=== PATIENT | male | born 1935 | race Caucasian/White ===

== ENCOUNTER 2017-04-18 01:13 | Emergency (ER) | payer MEDICARE ==
[2017-04-18 02:21] LABS: Appearance,Urine Cloudy (Clear); Bacteria,Urine Rare /hpf; Bilirubin,Urine Negative (Negative); Blood,Urine Large (Negative); Color,Urine Light Red; Glucose,Urine (UA) Negative (Negative); Hyaline Casts,Urine 15 /lpf (0-2); Ketones,Urine Negative (Negative); Leukocyte Esterase,Urine Moderate (Negative); Mucus,Urine Rare /hpf; Nitrite,Urine Negative (Negative); Protein,Urine 1+ (Negative); RBC,Urine >182 /hpf (0-5); Specific Gravity,Urine 1.009 (1.001-1.035); Squamous Epithelial Cell,Urine 1 /hpf (0-4); Urobilinogen,Urine <2.0 mg/dL (<2.0); WBC,Urine 113 /hpf (0-5)
--- NOTE | 2017-04-18 02:36 | ED ---
General Adult HPI - General Chief complaint: Recheck/Abnormal Lab/Rx Stated complaint: Trouble urinating Time Seen by Provider: 04/18/17 01:25 Source: patient, RN notes reviewed Mode of arrival: wheelchair Limitations: no limitations - History of Present Illness Initial comments: 81-year-old male presents to the emergency department with a chief complaint of difficulty in urination that was earlier today. He does have a history of hematuria and difficulty in urination in the past. He states that tonight he was having hard time urinating he passed a bloody clot. He states he then called Dr. Hinojosa who referred him here he states swelling that he was able to urinate normally again. He states he does not currently have a urinary catheter. At this time all his pain and discomfort has resolved. He denies any other symptoms at this time. Patient denies any recent fever, chills, shortness of breath, chest pain, back pain, abdominal pain, nausea vomiting, numbness or tingling, dysuria, constipation or diarrhea, headaches or visual changes, or any other current symptoms. - Related Data Home Medications Medication Instructions Recorded Confirmed Allopurinol [Zyloprim] 300 mg PO Q48H 03/01/17 03/04/17 Aspirin [Adult Low Dose Aspirin EC] 81 mg PO BID 03/01/17 03/04/17 Calcium(Dose Unknown) 1 tab PO DAILY 03/01/17 03/04/17 Ciprofloxacin HCl [Cipro] 250 mg PO Q12HR 03/01/17 03/04/17 DULoxetine HCL [Cymbalta] 30 mg PO DAILY 03/01/17 03/04/17 Docusate [Colace] 100 mg PO BID 03/01/17 03/04/17 Gabapentin [Neurontin] 300 mg PO BID 03/01/17 03/04/17 Glucosam/Donnie-Msm1/C/Pardeep/Bosw 1 tab PO DAILY 03/01/17 03/04/17 [Glucosamine-Chondroitin Tablet] Lisinopril [Zestril] 5 mg PO QAM 03/01/17 03/04/17 Metoprolol Tartrate 25 mg PO BID 03/01/17 03/04/17 Multivitamins, Thera [Multivitamin 1 tab PO DAILY 03/01/17 03/04/17 (formulary)] Schriever-3 Fatty Acids/Fish Oil [Fish 1 cap PO BID 03/01/17 03/04/17 Oil 1,000 mg Softgel] Simvastatin [Zocor] 20 mg PO DAILY 03/01/17 03/04/17 Spironolactone [Aldactone] 25 mg PO DAILY 03/01/17 03/04/17 Tamsulosin [Flomax] 0.4 mg PO PC-SUPPER 03/01/17 03/04/17 Torsemide [Demadex] 20 mg PO BID 03/01/17 03/04/17 metFORMIN HCL [Glucophage] 1,000 mg PO BID 03/01/17 03/04/17 sitaGLIPtin PHOS/metFORMIN HCL 1 tab PO PC-SUPPER 03/01/17 03/04/17 [Janumet 50-500 mg Tablet] Previous Rx's Medication Instructions Recorded Ciprofloxacin HCl [Cipro] 500 mg PO Q12HR #14 tablet 04/18/17 Allergies Allergy/AdvReac Type Severity Reaction Status Date / Time No Known Allergies Allergy Verified 03/04/17 09:58 Review of Systems ROS Statement: Those systems with pertinent positive or pertinent negative responses have been documented in the HPI. ROS Other: All systems not noted in ROS Statement are negative. 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 Past Anesthesia/Blood Transfusion Reactions: No Reported Reaction Past Psychological History: No Psychological Hx Reported Smoking Status: Former smoker Past Alcohol Use History: None Reported Past Drug Use History: None Reported - Past Family History Mother Family Medical History: Myocardial Infarction ([place]) Father Family Medical History: Diabetes Mellitus, Myocardial Infarction ([place]) General Exam Limitations: no limitations General appearance: alert, in no apparent distress ENT exam: Present: normal exam, mucous membranes moist Respiratory exam: Present: normal lung sounds bilaterally. Absent: respiratory distress, wheezes, rales, rhonchi, stridor Cardiovascular Exam: Present: regular rate, normal rhythm, normal heart sounds. Absent: systolic murmur, diastolic murmur, rubs, gallop, clicks GI/Abdominal exam: Present: soft, normal bowel sounds. Absent: distended, tenderness, guarding, rebound, rigid Neurological exam: Present: alert, oriented X3 Psychiatric exam: Present: normal affect, normal mood Skin exam: Present: warm, dry, intact, normal color. Absent: rash Course Vital Signs 04/18/17 01:16 Temperature 96.9 F L Pulse Rate 70 Respiratory 16 Rate Blood Pressure 106/55 O2 Sat by Pulse 97 Oximetry Medical Decision Making - Medical Decision Making 81-year-old male presents emergency Department chief complaint of hematuria. At this time post void patient has only 90 and he is able to urinate. Bladder was reviewed that does show some bacteria however greater red blood cells. This time we'll send for culture. Dr. Hinojosa was contacted by Dr. Salas. At this time patient is having no issues with urination. There is suspicion for UTI. We will send for culture and start patient on Cipro. We discussed return for hours and follow-up and all questions. Patient family stated they understood and management this plan. All questions have been answered. They will be discharged home. - Lab Data Lab Results 04/18/17 Range/Units 02:02 Urine Color Light Red Urine Appearance Cloudy (Clear) Urine pH 7.0 (5.0-8.0) Ur Specific [place] 1.009 (1.001-1.035) Urine Protein 1+ H (Negative) Urine Glucose (UA) Negative (Negative) Urine Ketones Negative (Negative) Urine Blood Large H (Negative) Urine Nitrite Negative (Negative) Urine Bilirubin Negative (Negative) Urine Urobilinogen <2.0 (<2.0) mg/dL Ur Leukocyte Esterase Moderate H (Negative) Urine RBC >182 H (0-5) /hpf Urine WBC 113 H (0-5) /hpf Ur Squamous Epith Cells 1 (0-4) /hpf Urine Bacteria Rare H (None) /hpf Hyaline Casts 15 H (0-2) /lpf Urine Mucus Rare H (None) /hpf Disposition Clinical Impression: UTI (urinary tract infection), Hematuria Disposition: HOME SELF-CARE Condition: Stable Instructions: Urinary Tract Infection in Women (ED) Additional Instructions: Please use medication as discussed. Please follow up with family doctor if symptoms have not improved over the next two days. Please return to the emergency room if your symptoms increase or worsen or for any other concerns. Prescriptions: Ciprofloxacin HCl [Cipro] 500 mg PO Q12HR #14 tablet Referrals: Alfredo Self MD [Primary Care Provider] - 1-2 days Time of Disposition: 02:49
--- NOTE | 2017-04-18 02:55 | ED ---
Medical Decision Making - Lab Data Lab Results 04/18/17 Range/Units 02:02 Urine Color Light Red Urine Appearance Cloudy (Clear) Urine pH 7.0 (5.0-8.0) Ur Specific [place] 1.009 (1.001-1.035) Urine Protein 1+ H (Negative) Urine Glucose (UA) Negative (Negative) Urine Ketones Negative (Negative) Urine Blood Large H (Negative) Urine Nitrite Negative (Negative) Urine Bilirubin Negative (Negative) Urine Urobilinogen <2.0 (<2.0) mg/dL Ur Leukocyte Esterase Moderate H (Negative) Urine RBC >182 H (0-5) /hpf Urine WBC 113 H (0-5) /hpf Ur Squamous Epith Cells 1 (0-4) /hpf Urine Bacteria Rare H (None) /hpf Hyaline Casts 15 H (0-2) /lpf Urine Mucus Rare H (None) /hpf Disposition Clinical Impression: UTI (urinary tract infection), Hematuria Disposition: HOME SELF-CARE Condition: Stable Instructions: Urinary Tract Infection in Men (ED) Additional Instructions: Please use medication as discussed. Please follow up with family doctor if symptoms have not improved over the next two days. Please return to the emergency room if your symptoms increase or worsen or for any other concerns. Prescriptions: Ciprofloxacin HCl [Cipro] 500 mg PO Q12HR #14 tablet Referrals: Alfredo Self MD [Primary Care Provider] - 1-2 days
[2017-04-18 03:07] VITALS: BP 131/62; PULSE 65; RESP 18; TEMP 97.4
== END 2017-04-18 03:07 | disposition home or self-care (01) ==
LOC: EC 01:13
DX: N39.0 Urinary tract infection, site not specified (principal); E78.5 Hyperlipidemia, unspecified; I10 Essential (primary) hypertension; I25.10 Atherosclerotic heart disease of native coronary artery without angina pectoris; E11.40 Type 2 diabetes mellitus with diabetic neuropathy, unspecified; M19.90 Unspecified osteoarthritis, unspecified site; N42.9 Disorder of prostate, unspecified; G47.30 Sleep apnea, unspecified; Z87.891 Personal history of nicotine dependence; Z79.82 Long term (current) use of aspirin; Z79.84 Long term (current) use of oral hypoglycemic drugs; Z79.899 Other long term (current) drug therapy; Z85.46 Personal history of malignant neoplasm of prostate; Z92.21 Personal history of antineoplastic chemotherapy; Z92.3 Personal history of irradiation; Z99.89 Dependence on other enabling machines and devices
CPT/HCPCS: 51798; 81001; 87086; 99284

== ENCOUNTER → 2017-08-09 | Outpatient (CLI) | payer MEDICARE ==
--- NOTE | 2017-08-10 07:11 | US ---
EXAMINATION TYPE: US carotid duplex BILAT DATE OF EXAM: 08/09/2017 COMPARISON: NONE CLINICAL HISTORY: Cerebral infarction, unspecified I63.9. EXAM MEASUREMENTS: RIGHT: Peak Systolic Velocity (PSV) cm/sec ----- Right CCA: 65.6 ----- Right ICA: 80.0 ----- Right ECA: 73.4 ICA/CCA ratio: 1.2 RIGHT: End Diastole cm/sec ----- Right CCA: 15.0 ----- Right ICA: 29.3 ----- Right ECA: 6.2 LEFT: Peak Systolic Velocity (PSV) cm/sec ----- Left CCA: 31.1 ----- Left ICA: 88.8 ----- Left ECA: 61.3 ICA/CCA ratio: 2.8 LEFT: End Diastole cm/sec ----- Left CCA: 11.0 ----- Left ICA: 30.6 ----- Left ECA: 12.8 VERTEBRALS (direction of flow): Right Vertebral: Antegrade Left Vertebral: Antegrade Rhythm: Normal IMPRESSION: Moderate amount of plaque visualized. Very low velocities visualized within the left CCA. Criteria for Assigning % of Stenosis / Diameter reduction (Estimation based on the indirect measurements of the internal carotid artery velocities (ICA PSV). 1. Normal (no stenosis)=ICA PSV < 125 cm/s: ratio < 2.0: ICA EDV<40 cm/s. 2. Less than 50% stenosis=ICA PSV < 125 cm/s: ratio < 2.0: ICA EDV<40 cm/s. 3. 50 to 69% stenosis=ICA PSV of 125 to 230 cm/s: ration 2.0 ? 4.0: ICA EDV 40-100 cm/s. 4. Greater than 70% stenosis to near occlusion= ICA PSV > 230 cm/s: ratio > 4.0: ICA EDV > 100 cm/s. 5. Near occlusion= ICA PSV velocities may be low or undetectable: variable ratio and ICA EDV. 6. Total occlusion=unable to detect flow.
== END | disposition home or self-care (01) ==
LOC: RADUSWWP 15:49
PROVIDERS: ATTEND Psychiatry & Neurology Neurology
DX: I65.29 Occlusion and stenosis of unspecified carotid artery (principal)
CPT/HCPCS: 93880

== ENCOUNTER 2017-10-06 18:09 | Inpatient (IN) | payer MEDICARE ==
--- NOTE | 2017-10-06 19:10 | ED ---
General Adult HPI - General Chief complaint: Urogenital Stated complaint: Cannot Urinate Time Seen by Provider: 10/06/17 18:30 Source: patient, RN notes reviewed Mode of arrival: wheelchair Limitations: no limitations - History of Present Illness Initial comments: 81-year-old male present emergency department with chief complaint of hematuria and unable to urinate. 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 Patient states that he's had problems since February with this he states that he's been placed in the hospital has had transfusion and has had multiple Perdomo's. Patient states she's felt the building up throughout the day states that he cannot tolerate the pressure at this time. Patient states that he had a spot cauterized in his bladder. Patient reports no fever no chills. - Related Data Home Medications Medication Instructions Recorded Confirmed Allopurinol [Zyloprim] 300 mg PO Q48H 03/01/17 10/06/17 Aspirin [Adult Low Dose Aspirin EC] 81 mg PO BID 03/01/17 10/06/17 Calcium(Dose Unknown) 1 tab PO DAILY 03/01/17 10/06/17 DULoxetine HCL [Cymbalta] 30 mg PO DAILY 03/01/17 10/06/17 Docusate [Colace] 100 mg PO BID 03/01/17 10/06/17 Gabapentin [Neurontin] 300 mg PO BID 03/01/17 10/06/17 Glucosam/Donnie-Msm1/C/Pardeep/Bosw 1 tab PO DAILY 03/01/17 10/06/17 [Glucosamine-Chondroitin Tablet] Lisinopril [Zestril] 5 mg PO QAM 03/01/17 10/06/17 Metoprolol Tartrate 25 mg PO BID 03/01/17 10/06/17 Multivitamins, Thera [Multivitamin 1 tab PO DAILY 03/01/17 10/06/17 (formulary)] Simvastatin [Zocor] 20 mg PO DAILY 03/01/17 10/06/17 Tamsulosin [Flomax] 0.4 mg PO PC-SUPPER 03/01/17 10/06/17 Mirabegron [Myrbetriq] 50 mg PO DAILY 06/27/17 10/06/17 Omeprazole 20 mg PO BID 06/27/17 10/06/17 sitaGLIPtin PHOS/metFORMIN HCL 1 tab PO BID 06/27/17 10/06/17 [Janumet 50-500 mg Tablet] Allergies Allergy/AdvReac Type Severity Reaction Status Date / Time No Known Allergies Allergy Verified 10/06/17 19:02 Review of Systems ROS Statement: Those systems with pertinent positive or pertinent negative responses have been documented in the HPI. ROS Other: All systems not noted in ROS Statement are negative. 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 Anemia with blood transfusions. 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 Past Anesthesia/Blood Transfusion Reactions: No Reported Reaction Past Psychological History: No Psychological Hx Reported Smoking Status: Former smoker Past Alcohol Use History: None Reported Past Drug Use History: None Reported - Past Family History Mother Family Medical History: Myocardial Infarction ([place]) Father Family Medical History: Diabetes Mellitus, Myocardial Infarction ([place]) General Exam Limitations: no limitations General appearance: alert, in no apparent distress Respiratory exam: Present: normal lung sounds bilaterally. Absent: respiratory distress, wheezes, rales, rhonchi, stridor Cardiovascular Exam: Present: regular rate, normal rhythm, normal heart sounds. Absent: systolic murmur, diastolic murmur, rubs, gallop, clicks GI/Abdominal exam: Present: soft, tenderness (Suprapubic region), normal bowel sounds. Absent: distended, guarding, rebound, rigid Skin exam: Present: warm, dry, intact, normal color. Absent: rash Course Vital Signs 10/06/17 18:24 Temperature 98.3 F Pulse Rate 72 Respiratory 18 Rate Blood Pressure 139/67 O2 Sat by Pulse 98 Oximetry Medical Decision Making - Medical Decision Making 81-year-old male presented from it for hematuria unable to urinate. Patient was seen in emergency department by Dr. buitrago or urology who placed a Perdomo and patient will be admitted for gross hematuria with one every hour flushes. - Lab Data Result diagrams: 10/06/17 19:35 10/06/17 19:35 Lab Results 10/06/17 10/06/17 10/06/17 Range/Units 19:35 19:35 19:35 WBC 7.8 (3.8-10.6) k/uL RBC 3.40 L (4.30-5.90) m/uL Hgb 11.1 L (13.0-17.5) gm/dL Hct 32.5 L (39.0-53.0) % MCV 95.6 (80.0-100.0) fL MCH 32.8 (25.0-35.0) pg MCHC 34.3 (31.0-37.0) g/dL RDW 16.4 H (11.5-15.5) % Plt Count 238 (150-450) k/uL Neutrophils % 79 % Lymphocytes % 10 % Monocytes % 8 % Eosinophils % 2 % Basophils % 0 % Neutrophils # 6.2 (1.3-7.7) k/uL Lymphocytes # 0.8 L (1.0-4.8) k/uL Monocytes # 0.6 (0-1.0) k/uL Eosinophils # 0.1 (0-0.7) k/uL Basophils # 0.0 (0-0.2) k/uL Anisocytosis Slight PT 9.8 (9.0-12.0) sec INR 1.0 (<1.2) APTT 25.5 (22.0-30.0) sec Sodium 136 L (137-145) mmol/L Potassium 4.6 (3.5-5.1) mmol/L Chloride 103 (98-107) mmol/L Carbon Dioxide 25 (22-30) mmol/L Anion Gap 8 mmol/L BUN 16 (9-20) mg/dL Creatinine 1.20 (0.66-1.25) mg/dL Est GFR (CKD-EPI)AfAm 66 (>60 ml/min/1.73 sqM) Est GFR (CKD-EPI)NonAf 57 (>60 ml/min/1.73 sqM) Glucose 140 H (74-99) mg/dL Calcium 9.1 (8.4-10.2) mg/dL Disposition Clinical Impression: Gross hematuria, Urinary retention, Abdominal pain Disposition: ADMITTED IP TO THIS HOSP Referrals: Alfredo Self MD [Primary Care Provider] - 1-2 days
[2017-10-06 19:48] LABS: Anisocytosis Slight; Basophils % (A) 0 %; Eosinophils # (A) 0.1 k/uL (0-0.7); Eosinophils % (A) 2 %; HCT 32.5 % (39.0-53.0); HGB 11.1 gm/dL (13.0-17.5); Lymphocytes # (A) 0.8 k/uL (1.0-4.8); Lymphocytes % (A) 10 %; MCH 32.8 pg (25.0-35.0); MCHC 34.3 g/dL (31.0-37.0); MCV 95.6 fL (80.0-100.0); Mean Platelet Volume 7.6; Monocytes # (A) 0.6 k/uL (0-1.0); Monocytes % (A) 8 %; Neutrophils # (A) 6.2 k/uL (1.3-7.7); Neutrophils % (A) 79 %; Platelet Count 238 k/uL (150-450); RDW 16.4 % (11.5-15.5); WBC 7.8 k/uL (3.8-10.6)
[2017-10-06 20:01] LABS: Calcium 9.1 mg/dL (8.4-10.2); Partial Thromboplastin Time 25.5 sec (22.0-30.0); Potassium 4.6 mmol/L (3.5-5.1); Prothrombin Time 9.8 sec (9.0-12.0)
--- NOTE | 2017-10-06 21:42 | P.OP ---
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 He developed gross hematuria one week ago which progressed to the point that he began passing clots. He has been unable to pass any urine since this morning and came to the emergency room for evaluation. Attempts at placement of a catheter by the nurses proved unsuccessful and I was asked to see the patient. Description of Procedure: The patient was placed supine in his emergency room bed. Patient has moderate phimosis. The penis was cleansed with Betadine solution and draped in a sterile fashion. I initially attempted to pass a 22 and then a 20-Kyr[place] Ortiz catheter through the urethra but both catheters met obstruction in the mid urethra. I was eventually able to pass an 18-Kyrgyz coud catheter through the urethra and into the bladder. Over the next 45 minutes over 500 mL of old clotted blood was irrigated from the bladder. After all clots and been removed the urine remained pink tinged and for that reason the patient will be admitted for further observation.
[2017-10-06] MEDS ORDERED: NALOXONE 0.4 MG/ML 1 ML VIAL IV PRN (21:46)
--- NOTE | 2017-10-06 21:52 | P.GSHP ---
History of Present Illness H&P Date: 10/06/17 Chief Complaint: Gross hematuria The patient is a 81-year-old male with a history of prostate cancer previously treated with radiation therapy. 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 He was last seen by Dr. Buckley on 09/27 and says that he began experiencing gross hematuria on 09/28. Initially the blood was just at the start of his urine flow but over the last several days he began passing blood clots. This morning he says that it became impossible to pass any clots and through the day he developed increasing lower abdominal discomfort. He presented to the emergency room where he was evaluated and a bladder scan showed over 900 mL in his bladder. The patient has moderate phimosis and it was impossible for the nurses to insert a catheter to drain the bladder. I saw the patient in the emergency room and initially attempted to pass a 22 and 20-Slovenian catheter through the urethra but these met with obstruction in the mid urethra. I was eventually able to pass an 18-Slovenian coud catheter into the bladder and over 500 mL of old clotted blood was irrigated from the bladder. Despite removal of all clots the urine remained pink in color and for that reason the patient will be admitted for the purpose of irrigation of his bladder every 1-2 hours. Up until one week ago the patient said that he had been doing very well. He says he usually voids every 2-3 hours during the day and once at night. He has been taking a baby aspirin twice a day and says that he continued this despite his gross hematuria. - Constitutional Constitutional: Denies chills, Denies fever - Cardiovascular Cardiovascular: Denies chest pain, Denies shortness of breath - Respiratory Respiratory: Denies cough, Denies wheezing - Gastrointestinal Gastrointestinal: Reports abdominal pain (Suprapubic cramps), Denies constipation - Genitourinary (Female) Genitourinary: Reports as per HPI Past Medical History Past Medical History: Blood Disorder, Coronary Artery Disease (CAD), Cancer, Diabetes Mellitus, Hyperlipidemia, Hypertension, Osteoarthritis (OA), Prostate Disorder, Renal Disease, Skin Disorder, Sleep Apnea/CPAP/BIPAP Additional Past Medical History / Comment(s): 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 Anemia with blood transfusions. 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 Past Anesthesia/Blood Transfusion Reactions: No Reported Reaction Past Psychological History: No Psychological Hx Reported Smoking Status: Former smoker Past Alcohol Use History: None Reported Past Drug Use History: None Reported - Past Family History Mother Family Medical History: Myocardial Infarction ([place]) Father Family Medical History: Diabetes Mellitus, Myocardial Infarction ([place]) Medications and Allergies Home Medications Medication Instructions Recorded Confirmed Type Allopurinol [Zyloprim] 300 mg PO Q48H 03/01/17 10/06/17 History Aspirin [Adult Low Dose Aspirin EC] 81 mg PO BID 03/01/17 10/06/17 History Calcium(Dose Unknown) 1 tab PO DAILY 03/01/17 10/06/17 History DULoxetine HCL [Cymbalta] 30 mg PO DAILY 03/01/17 10/06/17 History Docusate [Colace] 100 mg PO BID 03/01/17 10/06/17 History Gabapentin [Neurontin] 300 mg PO BID 03/01/17 10/06/17 History Glucosam/Donnie-Msm1/C/Pardeep/Bosw 1 tab PO DAILY 03/01/17 10/06/17 History [Glucosamine-Chondroitin Tablet] Lisinopril [Zestril] 5 mg PO QAM 03/01/17 10/06/17 History Metoprolol Tartrate 25 mg PO BID 03/01/17 10/06/17 History Multivitamins, Thera [Multivitamin 1 tab PO DAILY 03/01/17 10/06/17 History (formulary)] Simvastatin [Zocor] 20 mg PO DAILY 03/01/17 10/06/17 History Tamsulosin [Flomax] 0.4 mg PO PC-SUPPER 03/01/17 10/06/17 History Mirabegron [Myrbetriq] 50 mg PO DAILY 06/27/17 10/06/17 History Omeprazole 20 mg PO BID 06/27/17 10/06/17 History sitaGLIPtin PHOS/metFORMIN HCL 1 tab PO BID 06/27/17 10/06/17 History [Janumet 50-500 mg Tablet] Allergies Allergy/AdvReac Type Severity Reaction Status Date / Time No Known Allergies Allergy Verified 10/06/17 19:02 Surgical - Exam Vital Signs Temp Pulse Resp BP Pulse Ox 98.3 F 72 18 139/67 98 10/06/17 18:24 10/06/17 18:24 10/06/17 18:24 10/06/17 18:24 10/06/17 18:24 - General well developed, well nourished, moderate distress, obese - ENT no hearing loss - Neck no masses, no lymphadectomy - Respiratory normal respiratory effort - Abdomen Abdomen: tender (Suprapubic area with dullness to percussion), no organomegaly - Genitourinary other (The penis is uncircumcised and there is moderate phimosis which prevents direct visualization of the urethral meatus. Testicles are somewhat atrophic.) Results - Labs 10/06/17 19:35 10/06/17 19:35 Abnormal Lab Results - Last 24 Hours (Table) 10/06/17 10/06/17 Range/Units 19:35 19:35 RBC 3.40 L (4.30-5.90) m/uL Hgb 11.1 L (13.0-17.5) gm/dL Hct 32.5 L (39.0-53.0) % RDW 16.4 H (11.5-15.5) % Lymphocytes # 0.8 L (1.0-4.8) k/uL Sodium 136 L (137-145) mmol/L Glucose 140 H (74-99) mg/dL Diabetes panel 10/06/17 Range/Units 19:35 Sodium 136 L (137-145) mmol/L Potassium 4.6 (3.5-5.1) mmol/L Chloride 103 (98-107) mmol/L Carbon Dioxide 25 (22-30) mmol/L BUN 16 (9-20) mg/dL Creatinine 1.20 (0.66-1.25) mg/dL Glucose 140 H (74-99) mg/dL Calcium 9.1 (8.4-10.2) mg/dL Calcium panel 10/06/17 Range/Units 19:35 Calcium 9.1 (8.4-10.2) mg/dL Pituitary panel 10/06/17 Range/Units 19:35 Sodium 136 L (137-145) mmol/L Potassium 4.6 (3.5-5.1) mmol/L Chloride 103 (98-107) mmol/L Carbon Dioxide 25 (22-30) mmol/L BUN 16 (9-20) mg/dL Creatinine 1.20 (0.66-1.25) mg/dL Glucose 140 H (74-99) mg/dL Calcium 9.1 (8.4-10.2) mg/dL Adrenal panel 10/06/17 Range/Units 19:35 Sodium 136 L (137-145) mmol/L Potassium 4.6 (3.5-5.1) mmol/L Chloride 103 (98-107) mmol/L Carbon Dioxide 25 (22-30) mmol/L BUN 16 (9-20) mg/dL Creatinine 1.20 (0.66-1.25) mg/dL Glucose 140 H (74-99) mg/dL Calcium 9.1 (8.4-10.2) mg/dL Assessment and Plan (1) Irradiation cystitis with hematuria Narrative/Plan: The patient's gross hematuria appears to be related to irradiation cystitis which has been complicated by his continued use of aspirin. A large amount of clotted blood was irrigated from the bladder but the hematuria has persisted. The patient will be admitted and his bladder will be irrigated every 1-2 hours overnight in hopes that the bleeding vessels will contract. Dr. Buckley has seen the patient in the past and will reevaluate him in the morning. Current Visit: No Status: Acute Code(s): N30.41 - IRRADIATION CYSTITIS WITH HEMATURIA SNOMED Code(s): 13332760
[2017-10-07 07:33] LABS: Glucose,Whole Blood 244 mg/dL (75-99)
--- NOTE | 2017-10-07 08:00 | P.PN ---
Progress Note - Text Progress Note Date: 10/07/17 Mr. Figueroa is comfortable. His Ortiz catheter was being irrigated hourly. Some small clots have been irrigated. He is hemodynamically stable. A CBC will be obtained. If the hematuria worsens, or there is a significant drop in his hemoglobin level, he may require cystoscopy with fulguration of bleeders.
[2017-10-07] MEDS: METOPROLOL TARTRATE 25 MG TAB PO SCH ×2 (08:20→20:54)
[2017-10-07] MEDS: INSULIN ASPART 100 UNIT/ML 1 ML 10 ML VIAL SQ SCH ×4 (08:21→20:55)
[2017-10-07] MEDS: DOCUSATE 100 MG CAP PO SCH ×2 (08:21→20:55)
[2017-10-07] MEDS: DULoxetine HCL 30 MG CAPSULE.DR PO SCH (08:21)
[2017-10-07] MEDS: GABAPENTIN 300 MG CAP PO SCH ×2 (08:21→20:54)
[2017-10-07 08:24] VITALS: BMI 39.4
[2017-10-07] MEDS ORDERED: Mirabegron [Myrbetriq] PO SCH (09:00)
[2017-10-07] MEDS ORDERED: ALLOPURINOL 300 MG TAB PO SCH (09:00)
[2017-10-07] MEDS ORDERED: LISINOPRIL 5 MG TAB PO SCH ×2 (09:00→21:00)
[2017-10-07 09:15] LABS: Anisocytosis Slight; Basophils % (A) 0 %; Eosinophils # (A) 0.1 k/uL (0-0.7); Eosinophils % (A) 2 %; Lymphocytes # (A) 0.8 k/uL (1.0-4.8); Lymphocytes % (A) 11 %; MCH 32.5 pg (25.0-35.0); MCHC 33.3 g/dL (31.0-37.0); MCV 97.6 fL (80.0-100.0); Mean Platelet Volume 7.1; Monocytes # (A) 0.4 k/uL (0-1.0); Monocytes % (A) 6 %; Neutrophils # (A) 5.4 k/uL (1.3-7.7); Neutrophils % (A) 79 %; Platelet Count 215 k/uL (150-450); RBC 3.07 m/uL (4.30-5.90); RDW 16.6 % (11.5-15.5); WBC 6.9 k/uL (3.8-10.6)
[2017-10-07] MEDS ORDERED: MULTIVITAMINS, THERA 1 EACH TAB PO SCH (12:00)
[2017-10-07 12:05] LABS: Glucose,Whole Blood 110 mg/dL (75-99)
[2017-10-07] MEDS ORDERED: INSULIN ASPART 100 UNIT/ML 1 ML 10 ML VIAL SQ SCH (12:30)
--- NOTE | 2017-10-07 13:55 | P.CONS ---
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 Barrow recently for the same complain, his symptoms become much worse ended up coming to the emergency department on having to pass blood clots in his urine and having quite bed difficulty in urination not been able to void. He was seen by Dr. Hinojosa and three-way catheter was place and start irrigating the bladder continue to have significant hematuria patient was seen by urology today catheter will be kept continue current irrigation does not a clear apparently patient might require to go for cystoscopy and further management. Patient is doing well otherwise his blood sugar has been better control also not having any chest pain or angina with significant decrease lower extremity edema over the last few weeks. Review of Systems CONSTITUTIONAL: Well-developed no acute respiratory distress. EYES: No icterus sclerae, no conjunctivitis. EARS, NOSE, MOUTH, THROAT, and FACE: No sore throat, lymphadenopathy, carotid bruits or deformity. RESPIRATORY: No SOB cough or wheezes. CARDIOVASCULAR: No CP, Palpitation, PND, Orthopnea, or angina. GASTROINTESTINAL: No Abd pain, Nausea or vomiting, no Diarrhea or constipation, No GI Bleed, no distention or masses. GENITOURINARY: Positive gross hematuria with a Ortiz catheter and INTEGUMENT/BREAST: Positive edema. HEMATOLOGIC/LYMPHATIC: Negative for bleed or purpura. MUSCULOSKELTAL: Negative for Myalgia or arthralgia. NEURLOGICAL: No LOC, Sz or syncope, blurred vision dizziness or abnormality.. BEHAVIORAL/PSYCH: Negative. ENDOCRINE: Negative. 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 Anemia with blood transfusions. 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 Past Anesthesia/Blood Transfusion Reactions: No Reported Reaction Past Psychological History: No Psychological Hx Reported Additional Psychological History / Comment(s): Pt resides with his spouse. He ambulates with a walker. He drives. Smoking Status: Former smoker Past Alcohol Use History: None Reported Additional Past Alcohol Use History / Comment(s): Pt smoked from 89 until 1982 -03/22 ppd. Past Drug Use History: None Reported - Past Family History Mother Family Medical History: Myocardial Infarction ([place]) Father Family Medical History: Diabetes Mellitus, Myocardial Infarction ([place]) Medications and Allergies Home Medications Medication Instructions Recorded Confirmed Type Allopurinol [Zyloprim] 300 mg PO Q48H 03/01/17 10/06/17 History Aspirin [Adult Low Dose Aspirin EC] 81 mg PO BID 03/01/17 10/06/17 History Calcium(Dose Unknown) 1 tab PO DAILY 03/01/17 10/06/17 History DULoxetine HCL [Cymbalta] 30 mg PO DAILY 03/01/17 10/06/17 History Docusate [Colace] 100 mg PO BID 03/01/17 10/06/17 History Gabapentin [Neurontin] 300 mg PO BID 03/01/17 10/06/17 History Glucosam/Donnie-Msm1/C/Pardeep/Bosw 1 tab PO DAILY 03/01/17 10/06/17 History [Glucosamine-Chondroitin Tablet] Lisinopril [Zestril] 5 mg PO HS 03/01/17 10/07/17 History Metoprolol Tartrate 25 mg PO BID 03/01/17 10/06/17 History Multivitamins, Thera [Multivitamin 1 tab PO DAILY 03/01/17 10/06/17 History (formulary)] Simvastatin [Zocor] 20 mg PO DAILY 03/01/17 10/06/17 History Tamsulosin [Flomax] 0.4 mg PO PC-SUPPER 03/01/17 10/06/17 History Mirabegron [Myrbetriq] 50 mg PO DAILY 06/27/17 10/06/17 History Omeprazole 20 mg PO BID 06/27/17 10/06/17 History sitaGLIPtin PHOS/metFORMIN HCL 1 tab PO BID 06/27/17 10/06/17 History [Janumet 50-500 mg Tablet] Allergies Allergy/AdvReac Type Severity Reaction Status Date / Time No Known Allergies Allergy Verified 10/06/17 19:02 Physical Exam Vitals: Vital Signs Temp Pulse Pulse Resp BP BP Pulse Ox 10/07/17 07:30 97.9 F 61 14 114/56 99 10/07/17 00:26 98.9 F 72 16 127/65 99 10/06/17 22:44 98.4 F 76 20 153/94 99 10/06/17 22:08 98.6 F 63 18 155/68 99 10/06/17 21:48 98.6 F 53 L 18 135/63 98 10/06/17 18:24 98.3 F 72 18 139/67 98 Intake and Output 10/06/17 10/07/17 10/07/17 22:59 06:59 14:59 Output Total 2285 150 Balance -2285 -150 Output: Urine 2285 150 Coude 1140 150 Other: Voiding Method Indwelling Catheter Indwelling Catheter Weight 124.9 kg General Appearance: Alert, cooperative, no distress, appears stated age. Neck HEENT: Supple, no lymphadenopathy, no thyroid enlargement, no carotid bruits. Lungs: Clear to auscultation without crackles or wheezes no rhonchi, no deformity. Chest Wall: Chest wall normal expansion with deep inspiration no tenderness and no deformity was found on exam, no costochondral pain or discomfort. Heart: Regular rate and rhythm, S1, S2 normal, no murmur, rub or gallop. Back: Symmetric, no curvature, ROM normal, no CVA tenderness. Abdomen: Soft, non-tender, bowel sounds active all four quadrants, no masses, no organomegaly. Extremities: Slight edema with decreased pulse bilaterally, slight discoloration from 5 inches below the knee all the way to the toes area. Skin: Skin color, texture, tugor normal, no rashes or lesions. Neurologic: Alert oriented x3 cranial nerves II through XII intact, no motor deficit, no abnormal balance or gait. Genitalia: Patient had Ortiz catheter and still draining gross blood currently. Results CBC & Chem 7: 10/07/17 08:28 10/06/17 19:35 Labs: Abnormal Lab Results - Last 24 Hours (Table) 10/06/17 10/06/17 10/07/17 Range/Units 19:35 19:35 07:05 RBC 3.40 L (4.30-5.90) m/uL Hgb 11.1 L (13.0-17.5) gm/dL Hct 32.5 L (39.0-53.0) % RDW 16.4 H (11.5-15.5) % Lymphocytes # 0.8 L (1.0-4.8) k/uL Sodium 136 L (137-145) mmol/L Glucose 140 H (74-99) mg/dL POC Glucose (mg/dL) 244 H (75-99) mg/dL 10/07/17 10/07/17 Range/Units 08:28 11:48 RBC 3.07 L (4.30-5.90) m/uL Hgb 10.0 L (13.0-17.5) gm/dL Hct 30.0 L (39.0-53.0) % RDW 16.6 H (11.5-15.5) % Lymphocytes # 0.8 L (1.0-4.8) k/uL Sodium (137-145) mmol/L Glucose (74-99) mg/dL POC Glucose (mg/dL) 110 H (75-99) mg/dL Assessment and Plan Plan: 1 gross hematuria: Continue irrigation to Ortiz catheter if no improvement patient will be going for cystoscopy and further management with urology. 2 acute blood loss anemia: No need for blood transfusion currently if hemoglobin dropped below 8 might need transfusion. 3 type 2 diabetes: Continue patient on Accu-Chek with sliding scales continue his current medication, still on Janumet, his last A1c was less than 7. 3 hypertension: Remain on metoprolol 25 g twice a day and lisinopril 5 mg daily. 4 gout: Most sign and symptom of any gout flareup continue Zyloprim 300 mg every other day. 5 chronic depression: Has been on Cymbalta 30 mg daily. 6 hyperlipidemia: Remain on simvastatin 20 mg a day. 7 BPH: Continue patient on Flomax 0.4 mg a day and mirabetriq 50 mg daily. 8 chronic neuropathy: Has been on gabapentin 300 mg twice a day. 9 history of prostate cancer: Has been in remission patient had radiation therapy and was seen at [facility] for long time. CODE STATUS: Full code. Dr. Buckley thank you much for the consult if I can be any further help to please let me know.
[2017-10-07] MEDS ORDERED: HYDROmorphone 1 MG/ML 1 ML SYRINGE IVP PRN (15:00)
[2017-10-07] MEDS ORDERED: HYDROcodone/APAP 5-325MG 1 EACH TAB PO PRN ×2 (15:00)
[2017-10-07 16:40] LABS: Glucose,Whole Blood 130 mg/dL (75-99)
[2017-10-07] MEDS ORDERED: LIDOCAINE 5% PATCH TOPICAL PRN (19:02)
[2017-10-07 20:14] LABS: Glucose,Whole Blood 145 mg/dL (75-99)
[2017-10-07 20:28] LABS: Hemoglobin A1C 6.4 % (4.0-6.0)
[2017-10-08 00:36] VITALS: RESP 16
[2017-10-08 06:44] LABS: Anisocytosis Slight; Basophils % (A) 0 %; Eosinophils # (A) 0.1 k/uL (0-0.7); Eosinophils % (A) 2 %; HCT 28.6 % (39.0-53.0); HGB 9.5 gm/dL (13.0-17.5); Lymphocytes # (A) 0.7 k/uL (1.0-4.8); Lymphocytes % (A) 11 %; MCH 32.2 pg (25.0-35.0); MCHC 33.3 g/dL (31.0-37.0); MCV 96.5 fL (80.0-100.0); Mean Platelet Volume 7.1; Monocytes # (A) 0.4 k/uL (0-1.0); Monocytes % (A) 6 %; Neutrophils # (A) 4.9 k/uL (1.3-7.7); Neutrophils % (A) 79 %; Platelet Count 172 k/uL (150-450); RBC 2.97 m/uL (4.30-5.90); RDW 16.1 % (11.5-15.5); WBC 6.2 k/uL (3.8-10.6)
[2017-10-08 07:29] LABS: Glucose,Whole Blood 114 mg/dL (75-99)
[2017-10-08] MEDS ORDERED: PANTOPRAZOLE 40 MG TABLET PO SCH (07:30)
[2017-10-08 08:04] VITALS: BP 114/64; PULSE 59; TEMP 97.6
[2017-10-08] MEDS: DOCUSATE 100 MG CAP PO SCH (08:04)
[2017-10-08] MEDS: INSULIN ASPART 100 UNIT/ML 1 ML 10 ML VIAL SQ SCH (08:04)
[2017-10-08] MEDS: METOPROLOL TARTRATE 25 MG TAB PO SCH (08:05)
[2017-10-08] MEDS: DULoxetine HCL 30 MG CAPSULE.DR PO SCH (08:05)
[2017-10-08] MEDS: GABAPENTIN 300 MG CAP PO SCH (08:53)
--- NOTE | 2017-10-08 09:48 | P.DS ---
Providers Date of admission: 10/06/17 21:46 Expected date of discharge: 10/08/17 Attending physician: Oral Hinojosa Primary care physician: Alfredo Self - Discharge Diagnosis(es) (1) Irradiation cystitis with hematuria The patient was admitted through the emergency room on 10/06 due to gross hematuria presumably related to irradiation cystitis. In the emergency room a catheter was inserted and approximately 500 mL of old clotted blood was irrigated from the bladder. The patient's urine remained blood-tinged and he was admitted for the purpose of periodic bladder irrigation. This was continued over the next 36 hours. His hemoglobin was 11.1 at the time of admission, 10.0 on 10/07 and stable at 9.5 on 10/08. Despite the anemia it was felt that blood transfusion would not be necessary. On the morning of 10/08 his urine was clear and it was elected to discharge the patient with the catheter in place. He will contact Dr. Buckley on 10/10 and the catheter will most likely be removed at that time. He will remain off aspirin until his catheter has been removed. Current Visit: No Status: Acute Patient Condition at Discharge: Good Plan - Discharge Summary Discharge Rx Participant: No New Discharge Prescriptions: No Action Glucosam/Donnie-Msm1/C/Pardeep/Bosw [Glucosamine-Chondroitin Tablet] 1 tab PO DAILY DULoxetine HCL [Cymbalta] 30 mg PO DAILY Multivitamins, Thera [Multivitamin (formulary)] 1 tab PO DAILY Aspirin [Adult Low Dose Aspirin EC] 81 mg PO BID Gabapentin [Neurontin] 300 mg PO BID Docusate [Colace] 100 mg PO BID Lisinopril [Zestril] 5 mg PO HS Allopurinol [Zyloprim] 300 mg PO Q48H Simvastatin [Zocor] 20 mg PO DAILY Metoprolol Tartrate 25 mg PO BID Calcium(Dose Unknown) 1 tab PO DAILY Tamsulosin [Flomax] 0.4 mg PO PC-SUPPER sitaGLIPtin PHOS/metFORMIN HCL [Janumet 50-500 mg Tablet] 1 tab PO BID Mirabegron [Myrbetriq] 50 mg PO DAILY Omeprazole 20 mg PO BID Lidocaine 5% Patch [Lidoderm] 1 patch TOPICAL DAILY PRN PRN Reason: Pain Control Discharge Medication List Allopurinol [Zyloprim] 300 mg PO Q48H 03/01/17 [History] Aspirin [Adult Low Dose Aspirin EC] 81 mg PO BID 03/01/17 [History] Calcium(Dose Unknown) 1 tab PO DAILY 03/01/17 [History] DULoxetine HCL [Cymbalta] 30 mg PO DAILY 03/01/17 [History] Docusate [Colace] 100 mg PO BID 03/01/17 [History] Gabapentin [Neurontin] 300 mg PO BID 03/01/17 [History] Glucosam/Donnie-Msm1/C/Pardeep/Bosw [Glucosamine-Chondroitin Tablet] 1 tab PO DAILY 03/01/17 [History] Lisinopril [Zestril] 5 mg PO HS 03/01/17 [History] Metoprolol Tartrate 25 mg PO BID 03/01/17 [History] Multivitamins, Thera [Multivitamin (formulary)] 1 tab PO DAILY 03/01/17 [History ] Simvastatin [Zocor] 20 mg PO DAILY 03/01/17 [History] Tamsulosin [Flomax] 0.4 mg PO PC-SUPPER 03/01/17 [History] Mirabegron [Myrbetriq] 50 mg PO DAILY 06/27/17 [History] Omeprazole 20 mg PO BID 06/27/17 [History] sitaGLIPtin PHOS/metFORMIN HCL [Janumet 50-500 mg Tablet] 1 tab PO BID 06/27/17 [History] Lidocaine 5% Patch [Lidoderm] 1 patch TOPICAL DAILY PRN 10/07/17 [History] Follow up Appointment(s)/Referral(s): Alfredo Self MD [Primary Care Provider] - As Needed Ramo Buckley MD [STAFF PHYSICIAN] - 10/10/17 Activity/Diet/Wound Care/Special Instructions: Patient will be provided with a leg bag and large catheter drainage bag as well as 10 mL syringes filled with sterile water to irrigate the catheter if necessary. Discharge Disposition: HOME SELF-CARE
== END 2017-10-08 11:44 | disposition home or self-care (01) | DRG 699 ==
LOC: EC 18:09 → 3SUR 21:46
PROVIDERS: ADMIT Urology; ATTEND Urology
PROC: 3E1K78Z Irrigation of Genitourinary Tract using Irrigating Substance, Via Natural or Artificial Opening (ICD-10-PCS; principal; 2017-10-06)
DX: N30.41 Irradiation cystitis with hematuria (principal); D62 Acute posthemorrhagic anemia; E11.40 Type 2 diabetes mellitus with diabetic neuropathy, unspecified; Z79.84 Long term (current) use of oral hypoglycemic drugs; E78.5 Hyperlipidemia, unspecified; G47.33 Obstructive sleep apnea (adult) (pediatric); I10 Essential (primary) hypertension; I25.10 Atherosclerotic heart disease of native coronary artery without angina pectoris; Y84.2 Radiological procedure and radiotherapy as the cause of abnormal reaction of the patient, or of later complication, without mention of misadventure at the time of the procedure; Z79.82 Long term (current) use of aspirin; Z79.899 Other long term (current) drug therapy; Z82.49 Family history of ischemic heart disease and other diseases of the circulatory system; Z83.3 Family history of diabetes mellitus; Z85.46 Personal history of malignant neoplasm of prostate; Z87.891 Personal history of nicotine dependence; Z95.1 Presence of aortocoronary bypass graft; Z95.2 Presence of prosthetic heart valve; L40.9 Psoriasis, unspecified; N28.1 Cyst of kidney, acquired; N40.1 Benign prostatic hyperplasia with lower urinary tract symptoms; E66.3 Overweight; Z68.39 Body mass index [BMI] 39.0-39.9, adult; F32.9 Major depressive disorder, single episode, unspecified; M10.9 Gout, unspecified; N47.1 Phimosis; R33.8 Other retention of urine
CPT/HCPCS: 36415; 51702; 51798; 80048; 83036; 85025; 85610; 85730; 99285

== ENCOUNTER 2017-10-11 15:05 | Emergency (ER) | payer MEDICARE ==
[2017-10-11 15:12] VITALS: RESP 18
[2017-10-11] MEDS ORDERED: SODIUM CHLORIDE 0.9% 1,000 ML IV STA (15:30)
--- NOTE | 2017-10-11 15:44 | ED ---
General Adult HPI - General Chief complaint: Fever Stated complaint: blood in urine Time Seen by Provider: 10/11/17 15:11 Source: patient, EMS, RN notes reviewed, old records reviewed Mode of arrival: EMS Limitations: no limitations - History of Present Illness Initial comments: This is a 81-year-old male the ER for evaluation today. Patient is coming in today for evaluation of fever, blood in the urine. Patient has known radiation colitis, patient had fully placed on has had episodes of hematuria since with that did recently clear, slightly jaundiced yesterday and then blood in the urine started today as long as fever. Patient 103 fever at home, denies cough congestion of bowel pain nausea vomiting or diarrhea. Patient not currently on antibiotics. - Related Data Home Medications Medication Instructions Recorded Confirmed Allopurinol [Zyloprim] 300 mg PO Q48H 03/01/17 10/11/17 DULoxetine HCL [Cymbalta] 30 mg PO DAILY 03/01/17 10/11/17 Docusate [Colace] 100 mg PO BID 03/01/17 10/11/17 Gabapentin [Neurontin] 300 mg PO BID 03/01/17 10/11/17 Glucosam/Donnie-Msm1/C/Pardeep/Bosw 1 tab PO HS 03/01/17 10/11/17 [Glucosamine-Chondroitin Tablet] Lisinopril [Zestril] 5 mg PO HS 03/01/17 10/11/17 Metoprolol Tartrate 25 mg PO BID 03/01/17 10/11/17 Multivitamins, Thera [Multivitamin 1 tab PO HS 03/01/17 10/11/17 (formulary)] Simvastatin [Zocor] 20 mg PO HS 03/01/17 10/11/17 Tamsulosin [Flomax] 0.4 mg PO QAM 03/01/17 10/11/17 Mirabegron [Myrbetriq] 50 mg PO DAILY 06/27/17 10/11/17 Omeprazole 20 mg PO BID 06/27/17 10/11/17 sitaGLIPtin PHOS/metFORMIN HCL 1 tab PO HS 06/27/17 10/11/17 [Janumet 50-500 mg Tablet] Calcium Carbonate/Vitamin D3 1 tab PO HS 10/11/17 10/11/17 [Calcium 600-Vit D3 200 Tablet] Ciprofloxacin HCl [Cipro] 250 mg PO Q12HR 10/11/17 10/11/17 L.acidoph,Paracasei, B.lactis 1 cap PO DAILY 10/11/17 10/11/17 [Probiotic] Turmeric Root Extract [Turmeric] 500 mg PO DAILY 10/11/17 10/11/17 Allergies Allergy/AdvReac Type Severity Reaction Status Date / Time No Known Allergies Allergy Verified 10/11/17 16:36 Review of Systems ROS Statement: Those systems with pertinent positive or pertinent negative responses have been documented in the HPI. ROS Other: All systems not noted in ROS Statement are negative. 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 Anemia with blood transfusions. 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 Past Anesthesia/Blood Transfusion Reactions: No Reported Reaction Past Psychological History: No Psychological Hx Reported Smoking Status: Former smoker Past Alcohol Use History: None Reported Past Drug Use History: None Reported - Past Family History Mother Family Medical History: Myocardial Infarction ([place]) Father Family Medical History: Diabetes Mellitus, Myocardial Infarction ([place]) General Exam Limitations: no limitations General appearance: alert, in no apparent distress Head exam: Present: atraumatic, normocephalic, normal inspection Eye exam: Present: normal appearance, PERRL, EOMI. Absent: scleral icterus, conjunctival injection, periorbital swelling ENT exam: Present: normal exam, mucous membranes moist Neck exam: Present: normal inspection. Absent: tenderness, meningismus, lymphadenopathy Respiratory exam: Present: normal lung sounds bilaterally. Absent: respiratory distress, wheezes, rales, rhonchi, stridor Cardiovascular Exam: Present: regular rate, normal rhythm, normal heart sounds. Absent: systolic murmur, diastolic murmur, rubs, gallop, clicks GI/Abdominal exam: Present: soft, normal bowel sounds. Absent: distended, tenderness, guarding, rebound, rigid Extremities exam: Present: normal inspection, full ROM, normal capillary refill. Absent: tenderness, pedal edema, joint swelling, calf tenderness Back exam: Present: normal inspection Neurological exam: Present: alert, oriented X3, CN II-XII intact Psychiatric exam: Present: normal affect, normal mood Skin exam: Present: warm, dry, intact, normal color. Absent: rash Course Vital Signs 10/11/17 10/11/17 15:10 16:59 Temperature 100.7 F H 101.8 F H Pulse Rate 64 95 Respiratory 18 18 Rate Blood Pressure 140/65 127/59 O2 Sat by Pulse 95 96 Oximetry - Reevaluation(s) Reevaluation #1: 10/11/17 15:51 He has significant hematuria and blood in his Ortiz, no clots, no abdominal pain Medical Decision Making - Medical Decision Making Plan I male the ER for evaluation positive hematuria, radiation cystitis, UTI. Fever. Patient be admitted for IV antibiotics and monitoring of hematuria - Lab Data Result diagrams: 10/11/17 15:50 10/11/17 15:50 Lab Results 10/11/17 10/11/17 10/11/17 Range/Units 15:50 15:50 15:50 WBC 7.7 (3.8-10.6) k/uL RBC 3.10 L (4.30-5.90) m/uL Hgb 10.0 L (13.0-17.5) gm/dL Hct 29.7 L (39.0-53.0) % MCV 95.9 (80.0-100.0) fL MCH 32.5 (25.0-35.0) pg MCHC 33.9 (31.0-37.0) g/dL RDW 15.8 H (11.5-15.5) % Plt Count 216 (150-450) k/uL Neutrophils % 87 % Lymphocytes % 4 % Monocytes % 6 % Eosinophils % 2 % Basophils % 0 % Neutrophils # 6.7 (1.3-7.7) k/uL Lymphocytes # 0.3 L (1.0-4.8) k/uL Monocytes # 0.5 (0-1.0) k/uL Eosinophils # 0.1 (0-0.7) k/uL Basophils # 0.0 (0-0.2) k/uL Sodium 136 L (137-145) mmol/L Potassium 4.7 (3.5-5.1) mmol/L Chloride 102 (98-107) mmol/L Carbon Dioxide 25 (22-30) mmol/L Anion Gap 9 mmol/L BUN 11 (9-20) mg/dL Creatinine 1.10 (0.66-1.25) mg/dL Est GFR (CKD-EPI)AfAm 74 (>60 ml/min/1.73 sqM) Est GFR (CKD-EPI)NonAf 64 (>60 ml/min/1.73 sqM) Glucose 114 H (74-99) mg/dL Plasma Lactic Acid Judd (0.7-2.0) mmol/L Calcium 9.1 (8.4-10.2) mg/dL Total Bilirubin 0.4 (0.2-1.3) mg/dL AST 41 (17-59) U/L ALT 40 (21-72) U/L Alkaline Phosphatase 72 (38-126) U/L Total Protein 6.6 (6.3-8.2) g/dL Albumin 3.7 (3.5-5.0) g/dL Urine Color Red Urine Appearance Bloody (Clear) Urine RBC >182 H (0-5) /hpf Urine WBC >182 H (0-5) /hpf Urine WBC Clumps Many H (None) /hpf 10/11/17 Range/Units 15:50 WBC (3.8-10.6) k/uL RBC (4.30-5.90) m/uL Hgb (13.0-17.5) gm/dL Hct (39.0-53.0) % MCV (80.0-100.0) fL MCH (25.0-35.0) pg MCHC (31.0-37.0) g/dL RDW (11.5-15.5) % Plt Count (150-450) k/uL Neutrophils % % Lymphocytes % % Monocytes % % Eosinophils % % Basophils % % Neutrophils # (1.3-7.7) k/uL Lymphocytes # (1.0-4.8) k/uL Monocytes # (0-1.0) k/uL Eosinophils # (0-0.7) k/uL Basophils # (0-0.2) k/uL Sodium (137-145) mmol/L Potassium (3.5-5.1) mmol/L Chloride (98-107) mmol/L Carbon Dioxide (22-30) mmol/L Anion Gap mmol/L BUN (9-20) mg/dL Creatinine (0.66-1.25) mg/dL Est GFR (CKD-EPI)AfAm (>60 ml/min/1.73 sqM) Est GFR (CKD-EPI)NonAf (>60 ml/min/1.73 sqM) Glucose (74-99) mg/dL Plasma Lactic Acid Judd 1.5 (0.7-2.0) mmol/L Calcium (8.4-10.2) mg/dL Total Bilirubin (0.2-1.3) mg/dL AST (17-59) U/L ALT (21-72) U/L Alkaline Phosphatase (38-126) U/L Total Protein (6.3-8.2) g/dL Albumin (3.5-5.0) g/dL Urine Color Urine Appearance (Clear) Urine RBC (0-5) /hpf Urine WBC (0-5) /hpf Urine WBC Clumps (None) /hpf - Radiology Data Radiology results: report reviewed (CXR is negative for acute diseaes), image reviewed Disposition Clinical Impression: Acute blood loss anemia, Irradiation cystitis with hematuria, Gross hematuria, Urinary retention, UTI (urinary tract infection), Fever Disposition: ADMITTED IP TO THIS HOSP Condition: Fair Is patient prescribed a controlled substance at d/c from ED?: No Referrals: Alfredo Self MD [Primary Care Provider] - 1-2 days
[2017-10-11 16:05] LABS: Basophils % (A) 0 %; Eosinophils # (A) 0.1 k/uL (0-0.7); Eosinophils % (A) 2 %; HCT 29.7 % (39.0-53.0); Lymphocytes # (A) 0.3 k/uL (1.0-4.8); Lymphocytes % (A) 4 %; MCH 32.5 pg (25.0-35.0); MCHC 33.9 g/dL (31.0-37.0); MCV 95.9 fL (80.0-100.0); Mean Platelet Volume 7.6; Monocytes # (A) 0.5 k/uL (0-1.0); Monocytes % (A) 6 %; Neutrophils # (A) 6.7 k/uL (1.3-7.7); Neutrophils % (A) 87 %; Platelet Count 216 k/uL (150-450); RDW 15.8 % (11.5-15.5); WBC 7.7 k/uL (3.8-10.6)
[2017-10-11 16:13] LABS: RBC,Urine >182 /hpf (0-5); WBC,Urine >182 /hpf (0-5)
--- NOTE | 2017-10-11 16:13 | XR ---
EXAMINATION TYPE: XR chest 2V DATE OF EXAM: 10/11/2017 COMPARISON: None HISTORY: Shortness of breath TECHNIQUE: Frontal and lateral views of the chest are obtained. FINDINGS: Scattered senescent parenchymal changes noted. Hyperinflation compatible with COPD. No evidence for infiltrate. No evidence for atelectasis. Heart size is stable. Mediastinal structures are stable and grossly unremarkable. No evidence for hilar prominence. Degenerative changes dorsal spine. IMPRESSION: 1. No evidence for acute pulmonary disease.
[2017-10-11 16:15] LABS: Appearance,Urine Bloody (Clear); Color,Urine Red
[2017-10-11 16:18] LABS: Albumin 3.7 g/dL (3.5-5.0); Calcium 9.1 mg/dL (8.4-10.2); Potassium 4.7 mmol/L (3.5-5.1); Total Bilirubin 0.4 mg/dL (0.2-1.3); Total Protein 6.6 g/dL (6.3-8.2)
[2017-10-11] MEDS ORDERED: ACETAMINOPHEN TAB 500 MG TAB PO STA (17:00)
[2017-10-11] MEDS ORDERED: SODIUM CHLORIDE 0.9% 1,000 ML IV ONE (17:23)
[2017-10-11] MEDS ORDERED: cefTRIAXone 2,000 MG in SODIUM CHLORIDE 0.9% 100 ML IVPB STA (17:23)
[2017-10-11] MEDS ORDERED: CIPROFLOXACIN HCL 500 MG TAB PO STA (17:26)
[2017-10-11] MEDS ORDERED: cefTRIAXone IN SWFI 2,000 MG/20 ML SYRINGE IVP STA (17:27)
[2017-10-11 17:50] VITALS: BP 124/74; PULSE 80
[2017-10-11 18:47] VITALS: TEMP 99.2
== END 2017-10-11 18:45 | disposition other institution (70) ==
LOC: EC 15:05
DX: D62 Acute posthemorrhagic anemia (principal); N30.41 Irradiation cystitis with hematuria; R33.9 Retention of urine, unspecified; I25.10 Atherosclerotic heart disease of native coronary artery without angina pectoris; E11.40 Type 2 diabetes mellitus with diabetic neuropathy, unspecified; E78.5 Hyperlipidemia, unspecified; I10 Essential (primary) hypertension; G47.30 Sleep apnea, unspecified; Z90.89 Acquired absence of other organs; Z85.46 Personal history of malignant neoplasm of prostate; Z92.21 Personal history of antineoplastic chemotherapy; Z95.2 Presence of prosthetic heart valve; Z95.818 Presence of other cardiac implants and grafts; Z87.891 Personal history of nicotine dependence; Z79.84 Long term (current) use of oral hypoglycemic drugs; Z79.899 Other long term (current) drug therapy
CPT/HCPCS: 99285; 96374; 96361; 36415; 80053; 83605; 85025; 81001; 87040; 87086; 87077; 87186; 71046; J0696

== ENCOUNTER 2017-11-09 16:09 | Inpatient (IN) | payer MEDICARE ==
[2017-11-09] MEDS ORDERED: SODIUM CHLORIDE 0.9% 1,000 ML IV STA (16:41)
[2017-11-09 17:09] LABS: Basophils % (A) 0 %; Eosinophils # (A) 0.2 k/uL (0-0.7); Eosinophils % (A) 3 %; HCT 31.6 % (39.0-53.0); HGB 10.5 gm/dL (13.0-17.5); Lymphocytes # (A) 0.9 k/uL (1.0-4.8); Lymphocytes % (A) 15 %; MCH 32.1 pg (25.0-35.0); MCHC 33.3 g/dL (31.0-37.0); MCV 96.6 fL (80.0-100.0); Mean Platelet Volume 8.2; Monocytes # (A) 0.5 k/uL (0-1.0); Monocytes % (A) 7 %; Neutrophils # (A) 4.5 k/uL (1.3-7.7); Neutrophils % (A) 73 %; Platelet Count 195 k/uL (150-450); RBC 3.28 m/uL (4.30-5.90); RDW 13.9 % (11.5-15.5); WBC 6.2 k/uL (3.8-10.6)
[2017-11-09 17:17] LABS: Potassium 4.3 mmol/L (3.5-5.1)
[2017-11-09] MEDS ORDERED: ONDANSETRON 4 MG/2 ML VIAL IVP STA (17:26)
[2017-11-09] MEDS ORDERED: MORPHINE SULFATE 2 MG/ML SYRINGE IVP STA (17:26)
--- NOTE | 2017-11-09 17:38 | XR ---
EXAMINATION TYPE: XR KUB portable DATE OF EXAM: 11/09/2017 COMPARISON: CT 02/25/2017 HISTORY: Groin pain with large amounts of hematuria with blood clots, history of radiation cystitis. TECHNIQUE: 2 supine views FINDINGS: Visualized lung bases and pleural spaces are negative. The bowel gas pattern is within normal limits. There is no evidence of pneumatosis. NOTE: Pneumoperit oneum cannot be evaluated with supine radiography. Left upper quadrant 5 cm rounded calcification noted, corresponding with the rim calcification of the known left renal cyst. Atherosclerotic nonaneurysmal calcifications are noted throughout the arterial anatomy No acute skeletal findings. IMPRESSION: No definite acute radiographic process.
[2017-11-09] MEDS ORDERED: LIDOCAINE URO-JET JELLY 2% 5 ML KIT URETHRAL ONE (17:56)
[2017-11-09 18:47] LABS: Appearance,Urine Turbid (Clear); Bilirubin,Urine Negative (Negative); Blood,Urine Large (Negative); Color,Urine Red; Glucose,Urine (UA) Negative (Negative); Ketones,Urine Negative (Negative); Leukocyte Esterase,Urine Trace (Negative); Nitrite,Urine Negative (Negative); PH, Urine 7.5 (5.0-8.0); Protein,Urine 3+ (Negative); RBC,Urine >182 /hpf (0-5); Specific Gravity,Urine 1.016 (1.001-1.035); Urobilinogen,Urine <2.0 mg/dL (<2.0); WBC,Urine >182 /hpf (0-5)
--- NOTE | 2017-11-09 18:58 | ED ---
General Adult HPI - General Chief complaint: Urogenital Stated complaint: HEMATURIA Time Seen by Provider: 11/09/17 16:32 Source: patient Mode of arrival: wheelchair Limitations: no limitations - History of Present Illness Initial comments: 81 years old male comes in with unable to void today he feels that there is also a lot of blood in his urine he does have a history of prostate cancer he status post radiation and chemo back in 2004. He also has a history of retention in the past and hematuria he ended up with the Ortiz catheter and bladder irritation. He denies on any blood thinners except aspirin 81 mg daily as well as a history of coronary artery disease and hypertension and diabetes. Symptoms of TIA or CVA no chest pain or shortness of breath - Related Data Home Medications Medication Instructions Recorded Confirmed Allopurinol [Zyloprim] 300 mg PO Q48H 03/01/17 11/09/17 DULoxetine HCL [Cymbalta] 30 mg PO DAILY 03/01/17 11/09/17 Docusate [Colace] 100 mg PO BID 03/01/17 11/09/17 Gabapentin [Neurontin] 300 mg PO BID 03/01/17 11/09/17 Glucosam/Donnie-Msm1/C/Pardeep/Bosw 1 tab PO HS 03/01/17 11/09/17 [Glucosamine-Chondroitin Tablet] Lisinopril [Zestril] 5 mg PO HS 03/01/17 11/09/17 Metoprolol Tartrate 25 mg PO BID 03/01/17 11/09/17 Multivitamins, Thera [Multivitamin 1 tab PO HS 03/01/17 11/09/17 (formulary)] Simvastatin [Zocor] 20 mg PO HS 03/01/17 11/09/17 Tamsulosin [Flomax] 0.4 mg PO QAM 03/01/17 11/09/17 Mirabegron [Myrbetriq] 50 mg PO DAILY 06/27/17 11/09/17 Omeprazole 20 mg PO BID 06/27/17 11/09/17 sitaGLIPtin PHOS/metFORMIN HCL 1 tab PO HS 06/27/17 11/09/17 [Janumet 50-500 mg Tablet] Calcium Carbonate/Vitamin D3 1 tab PO HS 10/11/17 11/09/17 [Calcium 600-Vit D3 200 Tablet] L.acidoph,Paracasei, B.lactis 1 cap PO DAILY 10/11/17 11/09/17 [Probiotic] Turmeric Root Extract [Turmeric] 500 mg PO DAILY 10/11/17 11/09/17 Aspirin EC [Ecotrin Low Dose] 81 mg PO BID 11/09/17 11/09/17 Allergies Allergy/AdvReac Type Severity Reaction Status Date / Time No Known Allergies Allergy Verified 11/09/17 17:36 Review of Systems ROS Statement: Those systems with pertinent positive or pertinent negative responses have been documented in the HPI. ROS Other: All systems not noted in ROS Statement are negative. 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 Anemia with blood transfusions. 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 Past Anesthesia/Blood Transfusion Reactions: No Reported Reaction Past Psychological History: No Psychological Hx Reported Smoking Status: Former smoker Past Alcohol Use History: None Reported Past Drug Use History: None Reported - Past Family History Mother Family Medical History: Myocardial Infarction ([place]) Father Family Medical History: Diabetes Mellitus, Myocardial Infarction ([place]) General Exam - General Exam Comments Initial Comments: General: The patient is awake and alert, in moderate to severe distress Skin: Skin is warm and dry and no rashes or lesions are noted. Eye: Pupils are equal, round and reactive to light, extra-ocular movements are intact; there is normal conjunctiva bilaterally. Ears, nose, mouth and throat: There are moist mucous membranes and no oral lesions. Neck: The neck is supple, there is no tenderness or JVD. Cardiovascular: There is a regular rate and rhythm. No murmur, rub or gallop is appreciated. Respiratory: To auscultation bilateral, no wheezing no rhonchi no distress respiratory [place] noticed Gastrointestinal: Soft, but appreciated the distended bladder with suprapubic area positive bowel sounds no guarding no rebounds Back: There is no tenderness to palpation in the midline. There is no obvious deformity. Musculoskeletal: Normal ROM, no tenderness, There is no pedal edema. There is no calf tenderness or swelling. No cords were appreciated. Neurological: CN II-XII intact, Cranial nerves III through XII are intact. There are no obvious motor or sensory deficits. Coordination appears grossly intact. Speech is normal. Psychiatric: Cooperative, appropriate mood & affect, normal judgment. Limitations: no limitations Course Vital Signs 11/09/17 11/09/17 16:12 19:38 Temperature 97.9 F 97.8 F Pulse Rate 64 72 Respiratory 20 18 Rate Blood Pressure 109/59 146/67 O2 Sat by Pulse 98 98 Oximetry She was reassessed, hemoglobin is 10.5 creatinine is 1.38 glucose and 53 urine confirms a lot of blood and now there are positive leukocytes as well as erythrocytes bladder scan showed about 1 L considering his history of prostate cancer and radiation and chemo patient's had already called Dr. Elmer Espino came in he inserted the Ortiz and now we are irrigating it Upon reassessment noticed that today he still losing a lot of blood fluid in the bag is very bright red and he is quite anemic to begin with considering that this spoke with the Dr. Garsia he agreed with the idea of putting in the hospital observation will do irrigation every 1 hour with 30 40 mL of normal saline and repeat his hemoglobin in the morning , patient agrees with the plan of admission overnight Medical Decision Making - Lab Data Result diagrams: 11/09/17 16:58 11/09/17 16:58 Lab Results 11/09/17 11/09/17 11/09/17 Range/Units 16:58 16:58 18:29 WBC 6.2 (3.8-10.6) k/uL RBC 3.28 L (4.30-5.90) m/uL Hgb 10.5 L (13.0-17.5) gm/dL Hct 31.6 L (39.0-53.0) % MCV 96.6 (80.0-100.0) fL MCH 32.1 (25.0-35.0) pg MCHC 33.3 (31.0-37.0) g/dL RDW 13.9 (11.5-15.5) % Plt Count 195 (150-450) k/uL Neutrophils % 73 % Lymphocytes % 15 % Monocytes % 7 % Eosinophils % 3 % Basophils % 0 % Neutrophils # 4.5 (1.3-7.7) k/uL Lymphocytes # 0.9 L (1.0-4.8) k/uL Monocytes # 0.5 (0-1.0) k/uL Eosinophils # 0.2 (0-0.7) k/uL Basophils # 0.0 (0-0.2) k/uL Sodium 138 (137-145) mmol/L Potassium 4.3 (3.5-5.1) mmol/L Chloride 98 (98-107) mmol/L Carbon Dioxide 31 H (22-30) mmol/L Anion Gap 9 mmol/L BUN 26 H (9-20) mg/dL Creatinine 1.38 H (0.66-1.25) mg/dL Est GFR (CKD-EPI)AfAm 56 (>60 ml/min/1.73 sqM) Est GFR (CKD-EPI)NonAf 48 (>60 ml/min/1.73 sqM) Glucose 153 H (74-99) mg/dL Calcium 9.0 (8.4-10.2) mg/dL Urine Color Red Urine Appearance Turbid (Clear) Urine pH 7.5 (5.0-8.0) Ur Specific Rolfe 1.016 (1.001-1.035) Urine Protein 3+ H (Negative) Urine Glucose (UA) Negative (Negative) Urine Ketones Negative (Negative) Urine Blood Large H (Negative) Urine Nitrite Negative (Negative) Urine Bilirubin Negative (Negative) Urine Urobilinogen <2.0 (<2.0) mg/dL Ur Leukocyte Esterase Trace H (Negative) Urine RBC >182 H (0-5) /hpf Urine WBC >182 H (0-5) /hpf Disposition Clinical Impression: Hematuria, UTI (urinary tract infection), Urinary retention, Anemia Disposition: ADMITTED IP TO THIS [facility] Condition: Good Referrals: Alfredo Self MD [Primary Care Provider] - 1-2 days
[2017-11-09] MEDS ORDERED: MORPHINE SULFATE 2 MG/ML SYRINGE IV PRN (20:30)
[2017-11-09] MEDS ORDERED: NALOXONE 0.4 MG/ML 1 ML VIAL IV PRN (20:30)
[2017-11-09] MEDS ORDERED: ONDANSETRON 4 MG/2 ML VIAL IVP PRN (20:30)
[2017-11-09] MEDS ORDERED: NON-FORMULARY DRUG (Glucosam/Chon-Msm1/C/Mang/Bosw [Glucosamine-Chondroitin Tablet] 1 TAB) PO SCH (21:00)
--- NOTE | 2017-11-09 21:44 | P.GSHP ---
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 He had been seen by me on 10/06/2017 due to urinary retention secondary to gross hematuria and at that time I irrigated a large amount of old clotted blood from his bladder. The catheter was left in place for several days prior to removal and the patient says that his urine had been clear when he was last seen by approximately 10 days ago. He says he restarted aspirin one week ago. This morning he was having a bowel movement and developed gross hematuria. He has been unable to void since that time and came to the emergency room complaining of suprapubic pain. A bladder scan showed over 999 cc in the bladder. I was asked to see the patient by his . I came to the ER and inserted a 18 Turkish caude catheter and irrigated approximately 500 cc of old clotted blood from his bladder. His bladder was irrigated several times over the next hour but remained bloody. The patient has a history of anemia and will be admitted for periodic bladder irrigation. The patient said that he had been doing well prior to this morning and had been voiding every 4 hours during the day and felt he was voiding completely. - Constitutional Constitutional: Denies chills, Denies fever - Cardiovascular Cardiovascular: Denies chest pain, Denies shortness of breath, Denies syncope - Respiratory Respiratory: Denies cough - Gastrointestinal Gastrointestinal: Reports abdominal pain, Denies constipation - Genitourinary (Female) Genitourinary: Reports as per HPI Past Medical History Past Medical History: Blood Disorder, Coronary Artery Disease (CAD), Cancer, Diabetes Mellitus, Hyperlipidemia, Hypertension, Osteoarthritis (OA), Prostate Disorder, Renal Disease, Skin Disorder, Sleep Apnea/CPAP/BIPAP Additional Past Medical History / Comment(s): 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 Anemia with blood transfusions. 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 Past Anesthesia/Blood Transfusion Reactions: No Reported Reaction Past Psychological History: No Psychological Hx Reported Smoking Status: Former smoker Past Alcohol Use History: None Reported Past Drug Use History: None Reported - Past Family History Mother Family Medical History: Myocardial Infarction ([place]) Father Family Medical History: Diabetes Mellitus, Myocardial Infarction ([place]) Medications and Allergies Home Medications Medication Instructions Recorded Confirmed Type Allopurinol [Zyloprim] 300 mg PO Q48H 03/01/17 11/09/17 History DULoxetine HCL [Cymbalta] 30 mg PO DAILY 03/01/17 11/09/17 History Docusate [Colace] 100 mg PO BID 03/01/17 11/09/17 History Gabapentin [Neurontin] 300 mg PO BID 03/01/17 11/09/17 History Glucosam/Donnie-Msm1/C/Pardeep/Bosw 1 tab PO HS 03/01/17 11/09/17 History [Glucosamine-Chondroitin Tablet] Lisinopril [Zestril] 5 mg PO HS 03/01/17 11/09/17 History Metoprolol Tartrate 25 mg PO BID 03/01/17 11/09/17 History Multivitamins, Thera [Multivitamin 1 tab PO HS 03/01/17 11/09/17 History (formulary)] Simvastatin [Zocor] 20 mg PO HS 03/01/17 11/09/17 History Tamsulosin [Flomax] 0.4 mg PO QAM 03/01/17 11/09/17 History Mirabegron [Myrbetriq] 50 mg PO DAILY 06/27/17 11/09/17 History Omeprazole 20 mg PO BID 06/27/17 11/09/17 History sitaGLIPtin PHOS/metFORMIN HCL 1 tab PO HS 06/27/17 11/09/17 History [Janumet 50-500 mg Tablet] Calcium Carbonate/Vitamin D3 1 tab PO HS 10/11/17 11/09/17 History [Calcium 600-Vit D3 200 Tablet] L.acidoph,Paracasei, B.lactis 1 cap PO DAILY 10/11/17 11/09/17 History [Probiotic] Turmeric Root Extract [Turmeric] 500 mg PO DAILY 10/11/17 11/09/17 History Aspirin EC [Ecotrin Low Dose] 81 mg PO BID 11/09/17 11/09/17 History Allergies Allergy/AdvReac Type Severity Reaction Status Date / Time No Known Allergies Allergy Verified 11/09/17 17:36 Surgical - Exam Vital Signs Temp Pulse Resp BP Pulse Ox 97.9 F 64 20 109/59 98 11/09/17 16:12 11/09/17 16:12 11/09/17 16:12 11/09/17 16:12 11/09/17 16:12 - General well developed, moderate pain, obese - Neck no masses - Respiratory normal respiratory effort - Abdomen Abdomen: tender (suprapubic region), no organomegaly Hernia: none - Genitourinary other (The penis is uncircumcised and has moderately severe phimosis. Both testicles are descended and are non tender.) Results - Labs 11/09/17 16:58 11/09/17 16:58 Abnormal Lab Results - Last 24 Hours (Table) 11/09/17 11/09/17 11/09/17 Range/Units 16:58 16:58 18:29 RBC 3.28 L (4.30-5.90) m/uL Hgb 10.5 L (13.0-17.5) gm/dL Hct 31.6 L (39.0-53.0) % Lymphocytes # 0.9 L (1.0-4.8) k/uL Carbon Dioxide 31 H (22-30) mmol/L BUN 26 H (9-20) mg/dL Creatinine 1.38 H (0.66-1.25) mg/dL Glucose 153 H (74-99) mg/dL Urine Protein 3+ H (Negative) Urine Blood Large H (Negative) Ur Leukocyte Esterase Trace H (Negative) Urine RBC >182 H (0-5) /hpf Urine WBC >182 H (0-5) /hpf Diabetes panel 11/09/17 Range/Units 16:58 Sodium 138 (137-145) mmol/L Potassium 4.3 (3.5-5.1) mmol/L Chloride 98 (98-107) mmol/L Carbon Dioxide 31 H (22-30) mmol/L BUN 26 H (9-20) mg/dL Creatinine 1.38 H (0.66-1.25) mg/dL Glucose 153 H (74-99) mg/dL Calcium 9.0 (8.4-10.2) mg/dL Calcium panel 11/09/17 Range/Units 16:58 Calcium 9.0 (8.4-10.2) mg/dL Pituitary panel 11/09/17 Range/Units 16:58 Sodium 138 (137-145) mmol/L Potassium 4.3 (3.5-5.1) mmol/L Chloride 98 (98-107) mmol/L Carbon Dioxide 31 H (22-30) mmol/L BUN 26 H (9-20) mg/dL Creatinine 1.38 H (0.66-1.25) mg/dL Glucose 153 H (74-99) mg/dL Calcium 9.0 (8.4-10.2) mg/dL Adrenal panel 11/09/17 Range/Units 16:58 Sodium 138 (137-145) mmol/L Potassium 4.3 (3.5-5.1) mmol/L Chloride 98 (98-107) mmol/L Carbon Dioxide 31 H (22-30) mmol/L BUN 26 H (9-20) mg/dL Creatinine 1.38 H (0.66-1.25) mg/dL Glucose 153 H (74-99) mg/dL Calcium 9.0 (8.4-10.2) mg/dL Assessment and Plan (1) Hematuria Narrative/Plan: The gross hematuria is most likely related to irradiation cystitis and may have begun while straining during a bowel movement, although the patient denied constipation. It was worsened by his use of aspirin. Current Visit: Yes Status: Acute Code(s): R31.9 - HEMATURIA, UNSPECIFIED SNOMED Code(s): 36303863 (2) Urinary retention Narrative/Plan: The patient's urinary retention appears to be related to a large amount of clotted blood which was present at the dependent portion of the bladder. I estimated that I irrigated 500 cc of clot from his bladder in the emergency room. Patient's catheter will remain in place and his bladder will be irrigated periodically through the night to ensure that no new clots develop. Dr. Buckley will reevaluate him tomorrow. Current Visit: Yes Status: Acute Code(s): R33.9 - RETENTION OF URINE, UNSPECIFIED SNOMED Code(s): 287864087
[2017-11-10] MEDS: ATORVASTATIN 10 MG TAB PO SCH ×2 (04:26→20:55)
[2017-11-10] MEDS: DOCUSATE 100 MG CAP PO SCH ×3 (04:26→20:55)
[2017-11-10] MEDS: CALCIUM CARB-VIT D 500MG-200UN 1 EACH TAB PO SCH ×2 (04:26→20:55)
[2017-11-10] MEDS: GABAPENTIN 300 MG CAP PO SCH ×3 (04:26→20:55)
[2017-11-10] MEDS: MULTIVITAMINS, THERA 1 EACH TAB PO SCH ×2 (04:27→20:55)
[2017-11-10] MEDS: METOPROLOL TARTRATE 25 MG TAB PO SCH ×3 (04:27→20:55)
[2017-11-10] MEDS: LINAGLIPTIN 5 MG TABLET PO SCH ×2 (04:27→20:57)
[2017-11-10] MEDS: metFORMIN 500 MG TAB PO SCH ×2 (04:27→20:55)
[2017-11-10] MEDS: LISINOPRIL 5 MG TAB PO SCH ×2 (04:27→20:55)
[2017-11-10 06:12] LABS: Basophils % (A) 0 %; Eosinophils # (A) 0.1 k/uL (0-0.7); Eosinophils % (A) 3 %; HCT 31.2 % (39.0-53.0); HGB 10.1 gm/dL (13.0-17.5); Lymphocytes # (A) 0.7 k/uL (1.0-4.8); Lymphocytes % (A) 13 %; MCHC 32.5 g/dL (31.0-37.0); MCV 98.5 fL (80.0-100.0); Mean Platelet Volume 7.5; Monocytes # (A) 0.4 k/uL (0-1.0); Monocytes % (A) 7 %; Neutrophils # (A) 3.8 k/uL (1.3-7.7); Neutrophils % (A) 75 %; Platelet Count 171 k/uL (150-450); RBC 3.17 m/uL (4.30-5.90); RDW 13.9 % (11.5-15.5); WBC 5.1 k/uL (3.8-10.6)
[2017-11-10 06:49] LABS: Glucose,Whole Blood 138 mg/dL (75-99)
[2017-11-10] MEDS ORDERED: NON-FORMULARY DRUG (Turmeric Root Extract [Turmeric] 500 MG) PO SCH (09:00)
[2017-11-10] MEDS: PANTOPRAZOLE 40 MG TABLET PO SCH (09:02)
[2017-11-10] MEDS: TAMSULOSIN 0.4 MG CAP.ER.24H PO SCH (09:02)
[2017-11-10] MEDS: LACTOBACILLUS ACIDOPH & BULGAR 1 EACH PACKET PO SCH (09:57)
[2017-11-10] MEDS: ALLOPURINOL 300 MG TAB PO SCH (09:57)
[2017-11-10] MEDS: DULoxetine HCL 30 MG CAPSULE.DR PO SCH (09:57)
[2017-11-10 12:06] LABS: Glucose,Whole Blood 126 mg/dL (75-99)
--- NOTE | 2017-11-10 12:56 | P.PN ---
Progress Note - Text Progress Note Date: 11/10/17 Mr. Figueroa is comfortable and has no complaints. His Ortiz catheter has required irrigation for removal of clots. The catheter is currently draining urine which is cooper red in color. The hemoglobin level today was 10.1, down from 10.5 yesterday. His condition will continue to be monitored. If the hematuria persists, consideration will be given to continuous bladder irrigation as well as cystoscopy with fulguration.
--- NOTE | 2017-11-10 14:11 | P.CONS ---
History of Present Illness - Reason for Consult Consult date: 11/10/17 Hypertension - History of Present Illness This is a 81-year-old male patient of Dr. Self with past medical history significant for prostate cancer status post radiation therapy, coronary artery disease status post 3 vessel CABG and aortic valve replacement, diabetes mellitus type 2 insulin requiring, hypertension, hyperlipidemia. 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 Yesterday morning he noticed a little bit of blood in his urine and by 9:00 he was unable to urinate at all. He knew that he was starting to get clots that were blocking his flow. He recent had a hospitalization in September for this same. Patient came into [facility] emergency center and a Ortiz catheter placed by Dr. Hinojosa for retention. There is bloody return. His hemoglobin has been stable at 10.5 and repeated 10.1. BUN was 26 and creatinine 1.38. Patient has been placed in the observation unit. His Ortiz catheter has been irrigated for clots. Patient states that he is feeling fine now and ever since the pressure was relieved with the Ortiz he has been feeling improvement. Patient has been resumed on his home medications and vital signs have been stable. He has been afebrile. Review of Systems All systems: negative Constitutional: Denies chills, Denies fever, Denies lethargy, Denies poor appetite, Denies sweats, Denies weakness Eyes: denies blurred vision, denies pain Ears, nose, mouth and throat: Denies headache, Denies sore throat, Denies vertigo Cardiovascular: Denies chest pain, Denies decreased exercise tolerance, Denies dyspnea on exertion, Denies leg edema, Denies lightheadedness, Denies shortness of breath, Denies syncope Respiratory: Denies cough, Denies cough with sputum, Denies dyspnea, Denies excessive sputum, Denies hemoptysis, Denies home oxygen, Denies wheezing Gastrointestinal: Reports abdominal pain, Denies diarrhea, Denies loss of appetite, Denies melena, Denies nausea, Denies vomiting Genitourinary: Reports hematuria, Reports urinary retention Musculoskeletal: Denies frequent falls, Denies gait dysfunction, Denies myalgias Integumentary: Denies pruritus, Denies rash, Denies wounds Neurological: Denies numbness, Denies weakness Psychiatric: Denies anxiety, Denies depression Endocrine: Denies fatigue, Denies weight change Past Medical History Past Medical History: Blood Disorder, Coronary Artery Disease (CAD), Cancer, Diabetes Mellitus, Hyperlipidemia, Hypertension, Osteoarthritis (OA), Prostate Disorder, Renal Disease, Skin Disorder, Sleep Apnea/CPAP/BIPAP Additional Past Medical History / Comment(s): 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 Anemia with blood transfusions. 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 Past Anesthesia/Blood Transfusion Reactions: No Reported Reaction Smoking Status: Former smoker Additional Past Alcohol Use History / Comment(s): Patient was a smoker of one pack per day for approximately 25 years. He drinks occasional alcohol. He denies illicit drug use. - Past Family History Mother Family Medical History: Myocardial Infarction ([place]) Additional Family Medical History / Comment(s): Mother at age 67 from a myocardial infarction. Father Family Medical History: Diabetes Mellitus, Myocardial Infarction ([place]) Additional Family Medical History / Comment(s): Father from complications from diabetes mellitus that was uncontrolled with frequent episodes of coma. He also has history of myocardial infarction. The patient has no children and no siblings. Medications and Allergies Home Medications Medication Instructions Recorded Confirmed Type Allopurinol [Zyloprim] 300 mg PO Q48H 03/01/17 11/09/17 History DULoxetine HCL [Cymbalta] 30 mg PO DAILY 03/01/17 11/09/17 History Docusate [Colace] 100 mg PO BID 03/01/17 11/09/17 History Gabapentin [Neurontin] 300 mg PO BID 03/01/17 11/09/17 History Glucosam/Donnie-Msm1/C/Pardeep/Bosw 1 tab PO HS 03/01/17 11/09/17 History [Glucosamine-Chondroitin Tablet] Lisinopril [Zestril] 5 mg PO HS 03/01/17 11/09/17 History Metoprolol Tartrate 25 mg PO BID 03/01/17 11/09/17 History Multivitamins, Thera [Multivitamin 1 tab PO HS 03/01/17 11/09/17 History (formulary)] Simvastatin [Zocor] 20 mg PO HS 03/01/17 11/09/17 History Tamsulosin [Flomax] 0.4 mg PO QAM 03/01/17 11/09/17 History Mirabegron [Myrbetriq] 50 mg PO DAILY 06/27/17 11/09/17 History Omeprazole 20 mg PO BID 06/27/17 11/09/17 History sitaGLIPtin PHOS/metFORMIN HCL 1 tab PO HS 06/27/17 11/09/17 History [Janumet 50-500 mg Tablet] Calcium Carbonate/Vitamin D3 1 tab PO HS 10/11/17 11/09/17 History [Calcium 600-Vit D3 200 Tablet] L.acidoph,Paracasei, B.lactis 1 cap PO DAILY 10/11/17 11/09/17 History [Probiotic] Turmeric Root Extract [Turmeric] 500 mg PO DAILY 10/11/17 11/09/17 History Aspirin EC [Ecotrin Low Dose] 81 mg PO BID 11/09/17 11/09/17 History Allergies Allergy/AdvReac Type Severity Reaction Status Date / Time No Known Allergies Allergy Verified 11/09/17 17:36 Physical Exam Vitals: Vital Signs Temp Pulse Pulse Resp BP BP Pulse Ox 11/10/17 07:20 98.3 F 53 L 18 133/69 97 11/10/17 06:56 56 L 16 11/10/17 00:00 60 16 108/54 97 11/09/17 23:00 66 16 11/09/17 21:43 98.3 F 72 18 155/65 99 11/09/17 21:16 97.6 F 73 18 127/57 98 11/09/17 19:38 97.8 F 72 18 146/67 98 11/09/17 16:12 97.9 F 64 20 109/59 98 Intake and Output 11/09/17 11/10/17 11/10/17 22:59 06:59 14:59 Intake Total 1040 Output Total 1950 600 Balance -1950 440 Intake: Oral 1040 Output: Urine 1950 600 3-way Urethral 600 Other: Voiding Method Indwelling Catheter Indwelling Catheter Weight 127.006 kg General Appearance: Alert, cooperative, no distress, appears stated age. Neck HEENT: Supple, no lymphadenopathy, no thyroid enlargement, no carotid bruits. Lungs: Clear to auscultation without crackles or wheezes no rhonchi, no deformity. Chest Wall: Chest wall normal expansion with deep inspiration no tenderness and no deformity was found on exam, no costochondral pain or discomfort. Heart: Regular rate and rhythm, S1, S2 normal, no murmur, rub or gallop. Back: Symmetric, no curvature, ROM normal, no CVA tenderness. Abdomen: Soft, non-tender, bowel sounds active all four quadrants, no masses, no organomegaly. Extremities: Slight edema with decreased pulse bilaterally, slight discoloration from 5 inches below the knee all the way to the toes area. Skin: Skin color, texture, tugor normal, no rashes or lesions. Neurologic: Alert oriented x3 cranial nerves II through XII intact, no motor deficit, no abnormal balance or gait. Genitalia: Patient has Ortiz catheter and still draining dark blood tinged fluid Results CBC & Chem 7: 11/10/17 05:50 11/09/17 16:58 Labs: Abnormal Lab Results - Last 24 Hours (Table) 11/09/17 11/09/17 11/09/17 Range/Units 16:58 16:58 18:29 RBC 3.28 L (4.30-5.90) m/uL Hgb 10.5 L (13.0-17.5) gm/dL Hct 31.6 L (39.0-53.0) % Lymphocytes # 0.9 L (1.0-4.8) k/uL Carbon Dioxide 31 H (22-30) mmol/L BUN 26 H (9-20) mg/dL Creatinine 1.38 H (0.66-1.25) mg/dL Glucose 153 H (74-99) mg/dL POC Glucose (mg/dL) (75-99) mg/dL Urine Protein 3+ H (Negative) Urine Blood Large H (Negative) Ur Leukocyte Esterase Trace H (Negative) Urine RBC >182 H (0-5) /hpf Urine WBC >182 H (0-5) /hpf 08/11/10/17 11/10/17 Range/Units 05:50 06:46 12:03 RBC 3.17 L (4.30-5.90) m/uL Hgb 10.1 L (13.0-17.5) gm/dL Hct 31.2 L (39.0-53.0) % Lymphocytes # 0.7 L (1.0-4.8) k/uL Carbon Dioxide (22-30) mmol/L BUN (9-20) mg/dL Creatinine (0.66-1.25) mg/dL Glucose (74-99) mg/dL POC Glucose (mg/dL) 138 H 126 H (75-99) mg/dL Urine Protein (Negative) Urine Blood (Negative) Ur Leukocyte Esterase (Negative) Urine RBC (0-5) /hpf Urine WBC (0-5) /hpf Assessment and Plan Plan: 1. Gross hematuria. Continue Ortiz catheter irrigation. Continue her therapy plan developed by urology. 2. Acute blood loss with stable hemoglobin. Repeat CBC in the morning. 3. Urinary retention secondary to hematuria. Ortiz catheter in place. Continue Flomax 0.4 mg daily 4. 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 Continue Myrbetriq 50 mg daily. 5. Diabetes mellitus type 2, insulin requiring. Continue Janumet daily. 6. Hypertension. Continue lisinopril 5 mg at bedtime, Lopressor 25 mg twice daily. 7. Hyperlipidemia. Continue Lipitor 10 mg at bedtime. 8. Gastrointestinal prophylaxis. Continue Protonix. 9. DVT prophylaxis. ANGELINA belle and ANITAs. Discharge plan: return home Impression and plan of care have been directed as dictated by the signing physician. Amrita Núñez nurse practitioner acting as scribe for signing physician.
[2017-11-10 17:39] LABS: Glucose,Whole Blood 119 mg/dL (75-99)
[2017-11-10] MEDS ORDERED: MORPHINE ORAL SOLN 10 MG/5 ML CUP PO PRN (18:58)
[2017-11-10 21:14] LABS: Glucose,Whole Blood 200 mg/dL (75-99)
[2017-11-11 06:29] LABS: Glucose,Whole Blood 121 mg/dL (75-99)
[2017-11-11 07:46] LABS: Basophils % (A) 0 %; Eosinophils # (A) 0.2 k/uL (0-0.7); Eosinophils % (A) 3 %; HGB 9.2 gm/dL (13.0-17.5); Lymphocytes # (A) 0.7 k/uL (1.0-4.8); Lymphocytes % (A) 15 %; MCH 32.5 pg (25.0-35.0); MCHC 32.9 g/dL (31.0-37.0); MCV 98.8 fL (80.0-100.0); Mean Platelet Volume 7.4; Monocytes # (A) 0.3 k/uL (0-1.0); Monocytes % (A) 7 %; Neutrophils # (A) 3.3 k/uL (1.3-7.7); Neutrophils % (A) 72 %; Platelet Count 161 k/uL (150-450); RBC 2.83 m/uL (4.30-5.90); WBC 4.5 k/uL (3.8-10.6)
[2017-11-11 08:04] LABS: Calcium 8.8 mg/dL (8.4-10.2); Potassium 4.7 mmol/L (3.5-5.1)
[2017-11-11] MEDS: Mirabegron [Myrbetriq] 50 MG PO SCH ×2 (08:15→10:42)
[2017-11-11] MEDS: LACTOBACILLUS ACIDOPH & BULGAR 1 EACH PACKET PO SCH (10:27)
[2017-11-11] MEDS: GABAPENTIN 300 MG CAP PO SCH ×2 (10:29→19:54)
[2017-11-11] MEDS: DULoxetine HCL 30 MG CAPSULE.DR PO SCH (10:29)
[2017-11-11] MEDS: DOCUSATE 100 MG CAP PO SCH ×2 (10:29→19:54)
[2017-11-11] MEDS: TAMSULOSIN 0.4 MG CAP.ER.24H PO SCH (10:29)
[2017-11-11] MEDS: METOPROLOL TARTRATE 25 MG TAB PO SCH ×2 (10:29→19:53)
[2017-11-11] MEDS: PANTOPRAZOLE 40 MG TABLET PO SCH (10:29)
[2017-11-11 12:12] LABS: Glucose,Whole Blood 101 mg/dL (75-99)
--- NOTE | 2017-11-11 13:12 | P.PN ---
Subjective Progress Note Date: 11/11/17 This is a 81-year-old male patient of Dr. Self with past medical history significant for prostate cancer status post radiation therapy, coronary artery disease status post 3 vessel CABG and aortic valve replacement, diabetes mellitus type 2 insulin requiring, hypertension, hyperlipidemia. 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 Yesterday morning he noticed a little bit of blood in his urine and by 9:00 he was unable to urinate at all. He knew that he was starting to get clots that were blocking his flow. He recent had a hospitalization in September for this same. Patient came into [facility] emergency center and a Ortiz catheter placed by Dr. Hinojosa for retention. There is bloody return. His hemoglobin has been stable at 10.5 and repeated 10.1. BUN was 26 and creatinine 1.38. Patient has been placed in the observation unit. His Ortiz catheter has been irrigated for clots. Patient states that he is feeling fine now and ever since the pressure was relieved with the Ortiz he has been feeling improvement. Patient has been resumed on his home medications and vital signs have been stable. He has been afebrile. 11/11: Patient continues to have bloody return in the Ortiz catheter. There are less clots today. Patient states he is eating okay today. Vital signs are stable. Patient has been afebrile. Heart rate is running in the 50s. Hemoglobin today at 9.2. Capillary blood glucose running between 101 and 200. NovoLog scale will be added to metformin and try gentle. IV fluids discontinued. Objective - Vital Signs Vital signs: Vital Signs Temp 98.3 F 11/11/17 07:45 Pulse 53 L 11/11/17 07:45 Resp 16 11/11/17 07:45 BP 149/78 11/11/17 07:45 Pulse Ox 97 11/11/17 07:45 Intake & Output 11/10/17 11/11/17 11/11/17 18:59 06:59 18:59 Intake Total 1560 Output Total 1150 900 Balance 410 -900 Weight 127 kg 127.6 kg Intake: Oral 1560 Output: Urine 1150 900 3-way Urethral 1150 Other: Voiding Method Indwelling Catheter Indwelling Catheter # Bowel Movements 1 - Exam General Appearance: Alert, cooperative, no distress, appears stated age. Neck HEENT: Supple, no lymphadenopathy, no thyroid enlargement, no carotid bruits. Lungs: Clear to auscultation without crackles or wheezes no rhonchi, no deformity. Chest Wall: Chest wall normal expansion with deep inspiration no tenderness and no deformity was found on exam, no costochondral pain or discomfort. Heart: Regular rate and rhythm, S1, S2 normal, no murmur, rub or gallop. Back: Symmetric, no curvature, ROM normal, no CVA tenderness. Abdomen: Soft, non-tender, bowel sounds active all four quadrants, no masses, no organomegaly. Ortiz catheter with blood-tinged fluid, small clots. Extremities: Slight edema with decreased pulse bilaterally, slight discoloration from 5 inches below the knee all the way to the toes area. Skin: Skin color, texture, tugor normal, no rashes or lesions. Neurologic: Alert oriented x3 cranial nerves II through XII intact, no motor deficit, no abnormal balance or gait. Genitalia: Patient has Ortiz catheter and still draining dark blood tinged fluid - Labs CBC & Chem 7: 11/11/17 06:32 11/11/17 06:32 Labs: Abnormal Lab Results - Last 24 Hours (Table) 11/10/17 11/10/17 11/10/17 Range/Units 12:03 17:13 21:12 RBC (4.30-5.90) m/uL Hgb (13.0-17.5) gm/dL Hct (39.0-53.0) % Lymphocytes # (1.0-4.8) k/uL Glucose (74-99) mg/dL POC Glucose (mg/dL) 126 H 119 H 200 H (75-99) mg/dL 11/11/17 11/11/17 11/11/17 Range/Units 06:27 06:32 06:32 RBC 2.83 L (4.30-5.90) m/uL Hgb 9.2 L (13.0-17.5) gm/dL Hct 28.0 L (39.0-53.0) % Lymphocytes # 0.7 L (1.0-4.8) k/uL Glucose 118 H (74-99) mg/dL POC Glucose (mg/dL) 121 H (75-99) mg/dL Assessment and Plan Plan: 1. Gross hematuria. Continue Ortiz catheter irrigation. Continue plan developed by urology. 2. Acute blood loss with stable hemoglobin. Repeat CBC in the morning. 3. Urinary retention secondary to hematuria. Ortiz catheter in place. Continue Flomax 0.4 mg daily 4. 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 Continue Myrbetriq 50 mg daily. 5. Diabetes mellitus type 2, insulin requiring. Continue Janumet daily. NovoLog scale added. 6. Hypertension. Continue lisinopril 5 mg at bedtime, Lopressor 25 mg twice daily. 7. Hyperlipidemia. Continue Lipitor 10 mg at bedtime. 8. Gastrointestinal prophylaxis. Continue Protonix. 9. DVT prophylaxis. ANGELINA belle and ANITAs. Discharge plan: return home Impression and plan of care have been directed as dictated by the signing physician. Amrita Núñez nurse practitioner acting as scribe for signing physician.
--- NOTE | 2017-11-11 15:26 | P.PN ---
Progress Note - Text Progress Note Date: 11/11/17 Mr. Figueroa remains asymptomatic. He is afebrile with stable vital signs. There is persistent hematuria. The catheter was being irrigated regularly, but only very small clots been removed. The hemoglobin level today is 9.2. He will continue to be managed conservatively, though he is aware of the fact that if the hematuria persists he may require cystoscopy with fulguration.
[2017-11-11 17:04] LABS: Glucose,Whole Blood 119 mg/dL (75-99)
[2017-11-11] MEDS: INSULIN ASPART 100 UNIT/ML 1 ML 10 ML VIAL SQ SCH ×2 (19:22→20:06)
[2017-11-11] MEDS: ATORVASTATIN 10 MG TAB PO SCH (19:53)
[2017-11-11] MEDS: LINAGLIPTIN 5 MG TABLET PO SCH (19:53)
[2017-11-11] MEDS: metFORMIN 500 MG TAB PO SCH (19:53)
[2017-11-11] MEDS: MULTIVITAMINS, THERA 1 EACH TAB PO SCH (19:53)
[2017-11-11] MEDS: LISINOPRIL 5 MG TAB PO SCH (19:53)
[2017-11-11] MEDS: CALCIUM CARB-VIT D 500MG-200UN 1 EACH TAB PO SCH (19:54)
[2017-11-11 19:55] LABS: Hemoglobin A1C 5.6 % (4.0-6.0)
[2017-11-11 20:10] LABS: Glucose,Whole Blood 170 mg/dL (75-99)
[2017-11-12] MEDS: INSULIN ASPART 100 UNIT/ML 1 ML 10 ML VIAL SQ SCH ×4 (07:19→20:54)
[2017-11-12 09:22] LABS: Basophils % (A) 0 %; Eosinophils # (A) 0.2 k/uL (0-0.7); Eosinophils % (A) 4 %; HCT 30.4 % (39.0-53.0); HGB 9.8 gm/dL (13.0-17.5); Lymphocytes # (A) 0.8 k/uL (1.0-4.8); Lymphocytes % (A) 14 %; MCH 32.3 pg (25.0-35.0); MCHC 32.4 g/dL (31.0-37.0); MCV 99.8 fL (80.0-100.0); Macrocytosis Slight; Mean Platelet Volume 8.1; Monocytes # (A) 0.3 k/uL (0-1.0); Monocytes % (A) 6 %; Neutrophils # (A) 3.9 k/uL (1.3-7.7); Neutrophils % (A) 74 %; Platelet Count 170 k/uL (150-450); RBC 3.04 m/uL (4.30-5.90); RDW 14.2 % (11.5-15.5); WBC 5.3 k/uL (3.8-10.6)
--- NOTE | 2017-11-12 09:36 | P.PN ---
Progress Note - Text Progress Note Date: 11/12/17 The patient is afebrile and tolerating a regular diet. He denies constipation and is ambulatory. He continues to have blood in his urine and has required periodic bladder irrigation however usually only a few small clots are present. He was last irrigated approximately 6 hours ago. I irrigated 5 or 6 mL of old clot from the bladder this morning and his urine following the irrigation is relatively clear. In view of this further conservative management with an indwelling catheter and periodic bladder irrigation is reasonable.
[2017-11-12] MEDS: DOCUSATE 100 MG CAP PO SCH ×2 (10:18→20:54)
[2017-11-12] MEDS: PANTOPRAZOLE 40 MG TABLET PO SCH (10:18)
[2017-11-12] MEDS: ALLOPURINOL 300 MG TAB PO SCH (10:18)
[2017-11-12] MEDS: LACTOBACILLUS ACIDOPH & BULGAR 1 EACH PACKET PO SCH (10:18)
[2017-11-12] MEDS: GABAPENTIN 300 MG CAP PO SCH ×2 (10:18→20:54)
[2017-11-12] MEDS: DULoxetine HCL 30 MG CAPSULE.DR PO SCH (10:18)
[2017-11-12] MEDS: METOPROLOL TARTRATE 25 MG TAB PO SCH ×2 (10:19→20:54)
[2017-11-12] MEDS: Mirabegron [Myrbetriq] 50 MG PO SCH (10:19)
[2017-11-12] MEDS: TAMSULOSIN 0.4 MG CAP.ER.24H PO SCH (10:19)
--- NOTE | 2017-11-12 18:18 | P.PN ---
Subjective Progress Note Date: 11/12/17 This is a 81-year-old male patient of Dr. Self with past medical history significant for prostate cancer status post radiation therapy, coronary artery disease status post 3 vessel CABG and aortic valve replacement, diabetes mellitus type 2 insulin requiring, hypertension, hyperlipidemia. 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 Yesterday morning he noticed a little bit of blood in his urine and by 9:00 he was unable to urinate at all. He knew that he was starting to get clots that were blocking his flow. He recent had a hospitalization in September for this same. Patient came into [facility] emergency center and a Ortiz catheter placed by Dr. Hinojosa for retention. There is bloody return. His hemoglobin has been stable at 10.5 and repeated 10.1. BUN was 26 and creatinine 1.38. Patient has been placed in the observation unit. His Ortiz catheter has been irrigated for clots. Patient states that he is feeling fine now and ever since the pressure was relieved with the Ortiz he has been feeling improvement. Patient has been resumed on his home medications and vital signs have been stable. He has been afebrile. 11/11: Patient continues to have bloody return in the Ortiz catheter. There are less clots today. Patient states he is eating okay today. Vital signs are stable. Patient has been afebrile. Heart rate is running in the 50s. Hemoglobin today at 9.2. Capillary blood glucose running between 101 and 200. NovoLog scale will be added to metformin and try gentle. IV fluids discontinued. 11/12: Patient still has hematuria with one clot today on nursing irrigation to the bladder, Ortiz catheter is draining well, urology is not complying plating on any fulguration treatments of the bladder, as they had run into problems 6 months ago for the same procedure, no plans for leaving Ortiz catheter on discharge. No medication changes made today, patient's without fever and chills , no urine culture sent since admission, would send for one. 1.2 g of blood loss noted since admission, iron studies to be done, might need iron infusion Objective - Vital Signs Vital signs: Vital Signs Temp 97.8 F 11/12/17 05:47 Pulse 56 L 11/12/17 05:47 Resp 16 11/12/17 05:47 BP 120/81 11/12/17 05:47 Pulse Ox 94 L 11/12/17 05:47 Intake & Output 11/11/17 11/12/17 11/12/17 18:59 06:59 18:59 Intake Total 476 160 Output Total 1840 1760 Balance -1364 -1600 Intake: Oral 476 160 Output: Urine 1840 1760 3-way Urethral 1040 820 Other: Voiding Method Indwelling Catheter Indwelling Catheter # Voids 1 - Constitutional General appearance: Present: cooperative, no acute distress - EENT Eyes: Present: anicteric sclerae, EOMI, PERRLA, dentition normal ENT: Present: NA/AT, normal oropharynx - Neck Neck: Present: normal ROM - Respiratory Respiratory: bilateral: CTA, negative: diminished, dullness - Cardiovascular Rhythm: regular Heart sounds: normal: S1, S2 Abnormal Heart Sounds: Present: systolic murmur. Absent: diastolic murmur, rub , S3 Gallop, S4 Gallop, click, other - Gastrointestinal General gastrointestinal: Present: normal bowel sounds, soft. Absent: absent bowel sounds, decreased bowel sounds, distended, hepatomegaly, hyperactive bowel sounds, organomegaly, rigid, scaphoid, splenomegaly, tenderness, umbilical hernia, ventral hernia - Integumentary Integumentary: Present: decreased turgor, normal - Neurologic Neurologic: Present: CNII-XII intact - Musculoskeletal Musculoskeletal: Present: gait normal - Psychiatric Psychiatric: Present: A&O x's 3, appropriate affect, intact judgment & insight - Labs CBC & Chem 7: 11/12/17 09:00 11/11/17 06:32 Labs: Abnormal Lab Results - Last 24 Hours (Table) 11/11/17 11/11/17 11/12/17 Range/Units 17:01 19:56 09:00 RBC 3.04 L (4.30-5.90) m/uL Hgb 9.8 L (13.0-17.5) gm/dL Hct 30.4 L (39.0-53.0) % Lymphocytes # 0.8 L (1.0-4.8) k/uL POC Glucose (mg/dL) 119 H 170 H (75-99) mg/dL Assessment and Plan Plan: 1. Gross hematuria. Continue Ortiz catheter irrigation. Continue plan developed by urology. Continue irrigation, no plans for leaving the Ortiz catheter post discharge, urine culture to be sent today. 2. Acute blood loss with stable hemoglobin. Repeat CBC in the morning. Iron studies to be done, 1 g drop in hemoglobin noted, might need iron infusion 3. Urinary retention secondary to hematuria. Ortiz catheter in place. Continue Flomax 0.4 mg daily 4. 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 Continue Myrbetriq 50 mg daily. 5. Diabetes mellitus type 2, insulin requiring. A1c 5.6 Continue Janumet daily. NovoLog scale added. No changes to meds 6. Hypertension. Continue lisinopril 5 mg at bedtime, Lopressor 25 mg twice daily. 7. Hyperlipidemia. Continue Lipitor 10 mg at bedtime. 8. Gastrointestinal prophylaxis. Continue Protonix. 9. DVT prophylaxis. ANGELINA belle and SCDs. 10. Acute kidney failure, known history of CK D stage II, possibility of postobstructive uropathy, patient has a Ortiz catheter, monitor for urinary patient after the Ortiz catheter will be discontinued, urology following
[2017-11-12 20:14] LABS: Glucose,Whole Blood 145 mg/dL (75-99)
[2017-11-12] MEDS: ATORVASTATIN 10 MG TAB PO SCH (20:53)
[2017-11-12] MEDS: LISINOPRIL 5 MG TAB PO SCH (20:54)
[2017-11-12] MEDS: metFORMIN 500 MG TAB PO SCH (20:54)
[2017-11-12] MEDS: CALCIUM CARB-VIT D 500MG-200UN 1 EACH TAB PO SCH (20:54)
[2017-11-12] MEDS: LINAGLIPTIN 5 MG TABLET PO SCH (20:54)
[2017-11-12] MEDS: MULTIVITAMINS, THERA 1 EACH TAB PO SCH (20:55)
[2017-11-13] MEDS: INSULIN ASPART 100 UNIT/ML 1 ML 10 ML VIAL SQ SCH ×4 (07:28→20:58)
[2017-11-13 08:35] LABS: Basophils % (A) 1 %; Eosinophils # (A) 0.2 k/uL (0-0.7); Eosinophils % (A) 3 %; HCT 28.6 % (39.0-53.0); HGB 9.4 gm/dL (13.0-17.5); Lymphocytes # (A) 0.8 k/uL (1.0-4.8); Lymphocytes % (A) 15 %; MCH 32.5 pg (25.0-35.0); MCHC 32.9 g/dL (31.0-37.0); MCV 98.7 fL (80.0-100.0); Mean Platelet Volume 7.6; Monocytes # (A) 0.4 k/uL (0-1.0); Monocytes % (A) 8 %; Neutrophils # (A) 3.8 k/uL (1.3-7.7); Neutrophils % (A) 73 %; Platelet Count 173 k/uL (150-450); RDW 14.3 % (11.5-15.5); WBC 5.2 k/uL (3.8-10.6)
[2017-11-13 08:48] LABS: Calcium 8.8 mg/dL (8.4-10.2); Potassium 4.5 mmol/L (3.5-5.1)
[2017-11-13] MEDS: Mirabegron [Myrbetriq] 50 MG PO SCH (09:03)
[2017-11-13] MEDS: DULoxetine HCL 30 MG CAPSULE.DR PO SCH (09:04)
[2017-11-13] MEDS: GABAPENTIN 300 MG CAP PO SCH ×2 (09:04→20:56)
[2017-11-13] MEDS: DOCUSATE 100 MG CAP PO SCH ×2 (09:04→20:56)
[2017-11-13] MEDS: PANTOPRAZOLE 40 MG TABLET PO SCH (09:04)
[2017-11-13] MEDS: METOPROLOL TARTRATE 25 MG TAB PO SCH ×2 (09:04→20:56)
[2017-11-13] MEDS: TAMSULOSIN 0.4 MG CAP.ER.24H PO SCH (09:04)
[2017-11-13] MEDS: LACTOBACILLUS ACIDOPH & BULGAR 1 EACH PACKET PO SCH (09:04)
--- NOTE | 2017-11-13 10:31 | P.PN ---
Progress Note - Text Progress Note Date: 11/13/17 The patient is afebrile and comfortable. His urine was clear yesterday afternoon after I irrigated his bladder. He has had some hematuria through the night and his bladder has been irrigated several times but usually < 5 mL of clot iis irrigated out. Hemoglobin is 9.4 and minimally changed from yesterday. The patient's hematuria is most likely secondary to his irradiation cystoscopy prostatitis. I discussed further conservative management with a catheter and periodic drainage versus cystoscopy under anesthesia and the patient says that he would be comfortable with the former. He will be reevaluated by Dr. Buckley in the morning.
--- NOTE | 2017-11-13 15:16 | P.PN ---
Subjective Progress Note Date: 11/13/17 This is a 81-year-old male patient of Dr. Self with past medical history significant for prostate cancer status post radiation therapy, coronary artery disease status post 3 vessel CABG and aortic valve replacement, diabetes mellitus type 2 insulin requiring, hypertension, hyperlipidemia. 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 Yesterday morning he noticed a little bit of blood in his urine and by 9:00 he was unable to urinate at all. He knew that he was starting to get clots that were blocking his flow. He recent had a hospitalization in September for this same. Patient came into [facility] emergency center and a Ortiz catheter placed by Dr. Hinojosa for retention. There is bloody return. His hemoglobin has been stable at 10.5 and repeated 10.1. BUN was 26 and creatinine 1.38. Patient has been placed in the observation unit. His Ortiz catheter has been irrigated for clots. Patient states that he is feeling fine now and ever since the pressure was relieved with the Ortiz he has been feeling improvement. Patient has been resumed on his home medications and vital signs have been stable. He has been afebrile. 11/11: Patient continues to have bloody return in the Ortiz catheter. There are less clots today. Patient states he is eating okay today. Vital signs are stable. Patient has been afebrile. Heart rate is running in the 50s. Hemoglobin today at 9.2. Capillary blood glucose running between 101 and 200. NovoLog scale will be added to metformin and try gentle. IV fluids discontinued. 11/12: Patient still has hematuria with one clot today on nursing irrigation to the bladder, Ortiz catheter is draining well, urology is not complying plating on any fulguration treatments of the bladder, as they had run into problems 6 months ago for the same procedure, no plans for leaving Ortiz catheter on discharge. No medication changes made today, patient's without fever and chills , no urine culture sent since admission, would send for one. 1.2 g of blood loss noted since admission, iron studies to be done, might need iron infusion 11/13: Patient's without any significant complaints including back pain and abdominal pain, no penile pain either, Ortiz catheter draining bright red urine , ongoing periodic saline ladder irrigation for nursing staff, urologyto decide whether cystoscopy will be performed in the morning Objective - Vital Signs Vital signs: Vital Signs Temp 97.9 F 11/13/17 05:35 Pulse 53 L 11/13/17 05:35 Resp 16 11/13/17 05:35 BP 122/68 11/13/17 05:35 Pulse Ox 99 11/13/17 05:35 Intake & Output 11/12/17 11/13/17 11/13/17 18:59 06:59 18:59 Intake Total 940 Output Total 1020 2850 120 Balance -1020 -1910 -120 Intake: Oral 940 Output: Urine 1020 2850 120 3-way Urethral 450 Uretheral (Ortiz) 90 2850 120 Other: Voiding Method Indwelling Catheter Indwelling Catheter Indwelling Catheter # Bowel Movements 1 - Constitutional General appearance: Present: cooperative, no acute distress - EENT Eyes: Present: anicteric sclerae, EOMI, PERRLA, dentition normal, normal appearance ENT: Present: NA/AT, normal oropharynx - Neck Neck: Present: normal ROM - Respiratory Respiratory: bilateral: CTA, negative: diminished, dullness, rales - Cardiovascular Rhythm: regular Heart sounds: normal: S1, S2 Abnormal Heart Sounds: Absent: systolic murmur, diastolic murmur, rub, S3 Gallop , S4 Gallop, click, other - Gastrointestinal General gastrointestinal: Present: normal bowel sounds, soft - Genitourinary Genitourinary Comment(s): Light red urine in Ortiz catheter, 3 clots on rounds today irrigated by nursing staff - Integumentary Integumentary: Present: decreased turgor, normal - Neurologic Neurologic: Present: CNII-XII intact, focal deficits - Psychiatric Psychiatric: Present: A&O x's 3, appropriate affect, intact judgment & insight - Labs CBC & Chem 7: 11/13/17 08:03 11/13/17 08:03 Labs: Abnormal Lab Results - Last 24 Hours (Table) 11/12/17 11/13/17 11/13/17 Range/Units 20:12 08:03 08:03 RBC 2.90 L (4.30-5.90) m/uL Hgb 9.4 L (13.0-17.5) gm/dL Hct 28.6 L (39.0-53.0) % Lymphocytes # 0.8 L (1.0-4.8) k/uL Glucose 111 H (74-99) mg/dL POC Glucose (mg/dL) 145 H (75-99) mg/dL Microbiology - Last 24 Hours (Table) 11/13/17 01:32 Urine Culture - Preliminary Urine,Catheterized Assessment and Plan Plan: 1. Gross hematuria secondary to radiation cystitis. Continue Ortiz catheter irrigation. Continue plan developed by urology. Continue periodic saline bladder irrigation, no plans for leaving the Ortiz catheter post discharge, urine culture to be sent, pending report 2. Acute blood loss with stable hemoglobin. Repeat CBC in the morning. Iron studies to be done, 1 g drop in hemoglobin noted, might need iron infusion 3. Urinary retention secondary to hematuria. Ortiz catheter in place. Continue Flomax 0.4 mg daily 4. 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 Continue Myrbetriq 50 mg daily. 5. Diabetes mellitus type 2, insulin requiring. A1c 5.6 Continue Janumet daily. NovoLog scale added. No changes to meds 6. Hypertension. Continue lisinopril 5 mg at bedtime, Lopressor 25 mg twice daily. 7. Hyperlipidemia. Continue Lipitor 10 mg at bedtime. 8. Gastrointestinal prophylaxis. Continue Protonix. 9. DVT prophylaxis. ANGELINA belle and SCDs. 10. Acute kidney failure, known history of CK D stage II, possibility of postobstructive uropathy, patient has a Ortiz catheter, monitor for urinary patient after the Ortiz catheter will be discontinued, urology following
[2017-11-13] MEDS: ATORVASTATIN 10 MG TAB PO SCH (20:56)
[2017-11-13] MEDS: metFORMIN 500 MG TAB PO SCH (20:56)
[2017-11-13] MEDS: LINAGLIPTIN 5 MG TABLET PO SCH (20:56)
[2017-11-13] MEDS: CALCIUM CARB-VIT D 500MG-200UN 1 EACH TAB PO SCH (20:56)
[2017-11-13] MEDS: MULTIVITAMINS, THERA 1 EACH TAB PO SCH (20:56)
[2017-11-13] MEDS: LISINOPRIL 5 MG TAB PO SCH (20:56)
[2017-11-14] MEDS: INSULIN ASPART 100 UNIT/ML 1 ML 10 ML VIAL SQ SCH ×4 (07:03→20:21)
[2017-11-14] MEDS: PANTOPRAZOLE 40 MG TABLET PO SCH (07:03)
[2017-11-14 07:36] LABS: Basophils % (A) 0 %; Eosinophils # (A) 0.2 k/uL (0-0.7); Eosinophils % (A) 3 %; HCT 28.9 % (39.0-53.0); HGB 9.4 gm/dL (13.0-17.5); Lymphocytes # (A) 0.8 k/uL (1.0-4.8); Lymphocytes % (A) 13 %; MCH 32.2 pg (25.0-35.0); MCHC 32.4 g/dL (31.0-37.0); MCV 99.5 fL (80.0-100.0); Macrocytosis Slight; Mean Platelet Volume 7.2; Monocytes # (A) 0.4 k/uL (0-1.0); Monocytes % (A) 7 %; Neutrophils # (A) 4.2 k/uL (1.3-7.7); Neutrophils % (A) 74 %; Platelet Count 181 k/uL (150-450); RBC 2.91 m/uL (4.30-5.90); RDW 14.6 % (11.5-15.5); WBC 5.7 k/uL (3.8-10.6)
[2017-11-14] MEDS: METOPROLOL TARTRATE 25 MG TAB PO SCH ×2 (07:58→20:17)
[2017-11-14] MEDS: TAMSULOSIN 0.4 MG CAP.ER.24H PO SCH (07:59)
[2017-11-14] MEDS: GABAPENTIN 300 MG CAP PO SCH ×2 (08:01→20:17)
[2017-11-14] MEDS: DULoxetine HCL 30 MG CAPSULE.DR PO SCH (08:01)
[2017-11-14] MEDS: Mirabegron [Myrbetriq] 50 MG PO SCH (08:04)
[2017-11-14] MEDS: DOCUSATE 100 MG CAP PO SCH ×2 (08:04→20:18)
[2017-11-14] MEDS: LACTOBACILLUS ACIDOPH & BULGAR 1 EACH PACKET PO SCH (08:04)
[2017-11-14] MEDS: ALLOPURINOL 300 MG TAB PO SCH (08:04)
[2017-11-14 10:17] LABS: Iron Saturation 20.15 (15.00-50.00)
--- NOTE | 2017-11-14 14:57 | P.PN ---
Subjective Progress Note Date: 11/14/17 This is a 81-year-old male patient of Dr. Self with past medical history significant for prostate cancer status post radiation therapy, coronary artery disease status post 3 vessel CABG and aortic valve replacement, diabetes mellitus type 2 insulin requiring, hypertension, hyperlipidemia. 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 Yesterday morning he noticed a little bit of blood in his urine and by 9:00 he was unable to urinate at all. He knew that he was starting to get clots that were blocking his flow. He recent had a hospitalization in September for this same. Patient came into [facility] emergency center and a Ortiz catheter placed by Dr. Hinojosa for retention. There is bloody return. His hemoglobin has been stable at 10.5 and repeated 10.1. BUN was 26 and creatinine 1.38. Patient has been placed in the observation unit. His Ortiz catheter has been irrigated for clots. Patient states that he is feeling fine now and ever since the pressure was relieved with the Ortiz he has been feeling improvement. Patient has been resumed on his home medications and vital signs have been stable. He has been afebrile. 11/11: Patient continues to have bloody return in the Ortiz catheter. There are less clots today. Patient states he is eating okay today. Vital signs are stable. Patient has been afebrile. Heart rate is running in the 50s. Hemoglobin today at 9.2. Capillary blood glucose running between 101 and 200. NovoLog scale will be added to metformin and try gentle. IV fluids discontinued. 11/12: Patient still has hematuria with one clot today on nursing irrigation to the bladder, Ortiz catheter is draining well, urology is not complying plating on any fulguration treatments of the bladder, as they had run into problems 6 months ago for the same procedure, no plans for leaving Ortiz catheter on discharge. No medication changes made today, patient's without fever and chills , no urine culture sent since admission, would send for one. 1.2 g of blood loss noted since admission, iron studies to be done, might need iron infusion 11/13: Patient's without any significant complaints including back pain and abdominal pain, no penile pain either, Ortiz catheter draining bright red urine , ongoing periodic saline ladder irrigation for nursing staff, urologyto decide whether cystoscopy will be performed in the morning 11/14: Vital signs have been stable. Patient is using CPAP at night. Hemoglobin is 9.4. Patient is scheduled for cystoscopy today with Dr. Buckley. Objective - Vital Signs Vital signs: Vital Signs Temp 97.8 F 11/14/17 05:30 Pulse 50 L 11/14/17 09:00 Resp 18 11/14/17 09:00 BP 126/61 11/14/17 05:30 Pulse Ox 96 11/14/17 05:30 Intake & Output 11/13/17 11/14/17 11/14/17 18:59 06:59 18:59 Intake Total 1430 Output Total 1720 1800 Balance -1720 -370 Weight 127.6 kg Intake: Oral 1430 Output: Urine 1720 1800 Uretheral (Ortiz) 120 Other: Voiding Method Indwelling Catheter Indwelling Catheter Indwelling Catheter # Voids 2 # Bowel Movements 1 - Exam General Appearance: Alert, cooperative, no distress, appears stated age. Neck HEENT: Supple, no lymphadenopathy, no thyroid enlargement, no carotid bruits. Lungs: Clear to auscultation without crackles or wheezes no rhonchi, no deformity. Chest Wall: Chest wall normal expansion with deep inspiration no tenderness and no deformity was found on exam, no costochondral pain or discomfort. Heart: Regular rate and rhythm, S1, S2 normal, no murmur, rub or gallop. Back: Symmetric, no curvature, ROM normal, no CVA tenderness. Abdomen: Soft, non-tender, bowel sounds active all four quadrants, no masses, no organomegaly. Ortiz catheter with blood-tinged fluid, small clots. Extremities: Slight edema with decreased pulse bilaterally, slight discoloration from 5 inches below the knee all the way to the toes area. Skin: Skin color, texture, tugor normal, no rashes or lesions. Neurologic: Alert oriented x3 cranial nerves II through XII intact, no motor deficit, no abnormal balance or gait. Genitalia: Patient has Ortiz catheter and still draining dark blood tinged fluid - Labs CBC & Chem 7: 11/14/17 06:59 11/13/17 08:03 Labs: Abnormal Lab Results - Last 24 Hours (Table) 11/14/17 Range/Units 06:59 RBC 2.91 L (4.30-5.90) m/uL Hgb 9.4 L (13.0-17.5) gm/dL Hct 28.9 L (39.0-53.0) % Lymphocytes # 0.8 L (1.0-4.8) k/uL Microbiology - Last 24 Hours (Table) 11/13/17 01:32 Urine Culture - Preliminary Urine,Catheterized Assessment and Plan Plan: 1. Gross hematuria. Continue Ortiz catheter irrigation. Continue plan developed by urology. Continue Ortiz catheter irrigation. 2. Acute blood loss with stable hemoglobin. Repeat CBC in the morning. Iron studies ordered. 3. Urinary retention secondary to hematuria. Ortiz catheter in place. Continue Flomax 0.4 mg daily 4. 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 Continue Myrbetriq 50 mg daily. 5. Diabetes mellitus type 2, insulin requiring. Hemoglobin A1c 5.6. Continue Janumet daily. NovoLog scale added. 6. Hypertension. Continue lisinopril 5 mg at bedtime, Lopressor 25 mg twice daily. 7. Hyperlipidemia. Continue Lipitor 10 mg at bedtime. 8. Acute kidney injury (POA) with CKD II. 9. Gastrointestinal prophylaxis. Continue Protonix. 10. DVT prophylaxis. ANGELINA belle and ANITAs. Discharge plan: return home Impression and plan of care have been directed as dictated by the signing physician. Amrita Núñez nurse practitioner acting as scribe for signing physician.
[2017-11-14] MEDS ORDERED: LACTATED RINGERS 1,000 ML IV ONE (15:39)
[2017-11-14] MEDS ORDERED: LIDOCAINE 1% 20 ML VIAL (10MG/ML) FOR IV START INTRADERMA ONE (15:50)
[2017-11-14 15:52] LABS: Glucose,Whole Blood 91 mg/dL (75-99)
--- NOTE | 2017-11-14 16:21 | P.PN ---
Progress Note - Text Progress Note Date: 11/14/17 Mr. Figueroa has no complaints today. His hematuria persists, though the hemoglobin level is stable at 9.4. We have again reviewed alternative treatment options, and he has elected to undergo cystoscopy with fulguration of bleeder, with the hopes that this will enable him to be discharged home soon.
[2017-11-14] MEDS ORDERED: MIDAZOLAM 2 MG/2 ML VIAL IVP ONE ×2 (16:54→17:04)
[2017-11-14] MEDS: LISINOPRIL 5 MG TAB PO SCH (20:17)
[2017-11-14] MEDS: ATORVASTATIN 10 MG TAB PO SCH (20:17)
[2017-11-14] MEDS: MULTIVITAMINS, THERA 1 EACH TAB PO SCH (20:17)
[2017-11-14] MEDS: LINAGLIPTIN 5 MG TABLET PO SCH (20:18)
[2017-11-14] MEDS: metFORMIN 500 MG TAB PO SCH (20:18)
[2017-11-14] MEDS: CALCIUM CARB-VIT D 500MG-200UN 1 EACH TAB PO SCH (20:18)
[2017-11-14 21:58] LABS: Glucose,Whole Blood 132 mg/dL (75-99)
[2017-11-15 04:42] VITALS: BP 112/53; RESP 15; TEMP 97.9
[2017-11-15] MEDS: INSULIN ASPART 100 UNIT/ML 1 ML 10 ML VIAL SQ SCH ×2 (07:04→08:01)
[2017-11-15 07:08] LABS: Glucose,Whole Blood 112 mg/dL (75-99)
[2017-11-15] MEDS: PANTOPRAZOLE 40 MG TABLET PO SCH (07:19)
[2017-11-15 07:58] LABS: Basophils % (A) 0 %; Eosinophils # (A) 0.2 k/uL (0-0.7); Eosinophils % (A) 3 %; HCT 29.3 % (39.0-53.0); HGB 9.7 gm/dL (13.0-17.5); Lymphocytes # (A) 0.6 k/uL (1.0-4.8); Lymphocytes % (A) 11 %; MCH 32.5 pg (25.0-35.0); MCHC 33.3 g/dL (31.0-37.0); MCV 97.6 fL (80.0-100.0); Mean Platelet Volume 7.5; Monocytes # (A) 0.4 k/uL (0-1.0); Monocytes % (A) 7 %; Neutrophils # (A) 4.2 k/uL (1.3-7.7); Neutrophils % (A) 77 %; Platelet Count 194 k/uL (150-450); RDW 14.5 % (11.5-15.5); WBC 5.5 k/uL (3.8-10.6)
[2017-11-15] MEDS: DOCUSATE 100 MG CAP PO SCH (07:59)
[2017-11-15] MEDS: DULoxetine HCL 30 MG CAPSULE.DR PO SCH (07:59)
[2017-11-15] MEDS: LACTOBACILLUS ACIDOPH & BULGAR 1 EACH PACKET PO SCH (07:59)
[2017-11-15] MEDS: TAMSULOSIN 0.4 MG CAP.ER.24H PO SCH (08:00)
[2017-11-15] MEDS: GABAPENTIN 300 MG CAP PO SCH (08:00)
[2017-11-15] MEDS: METOPROLOL TARTRATE 25 MG TAB PO SCH (08:00)
[2017-11-15] MEDS: Mirabegron [Myrbetriq] 50 MG PO SCH (08:00)
[2017-11-15 09:00] VITALS: PULSE 0
[2017-11-15 11:54] LABS: Glucose,Whole Blood 114 mg/dL (75-99)
--- NOTE | 2017-11-15 13:07 | P.DS ---
Providers Date of admission: 11/11/17 13:34 Expected date of discharge: 11/15/17 Attending physician: Oral Hinojosa Consults: 11/09/17 20:30 Consult Physician Stat Consulting Provider: Evy Worthington Consult Reason/Comments: HTN Do you want consulting provider notified?: Yes Primary care physician: [facility] Course: At the time of admission, a Ortiz catheter was placed and the bladder was irrigated of clots. The catheter was irrigated by the nursing staff throughout the hospitalization. The hemoglobin level gradually declined. His condition was otherwise stable. On November 14, the decision was made to perform cystoscopy with electrocautery of bleeders. However, in the preoperative holding area, the urine was noted to be clear and therefore the procedure was canceled. The urine remained clear overnight and he will thus be discharged home with the catheter in place. Patient Condition at Discharge: Good Plan - Discharge Summary Discharge Rx Participant: No New Discharge Prescriptions: No Action Glucosam/Donnie-Msm1/C/Pardeep/Bosw [Glucosamine-Chondroitin Tablet] 1 tab PO HS DULoxetine HCL [Cymbalta] 30 mg PO DAILY Multivitamins, Thera [Multivitamin (formulary)] 1 tab PO HS Gabapentin [Neurontin] 300 mg PO BID Docusate [Colace] 100 mg PO BID Lisinopril [Zestril] 5 mg PO HS Allopurinol [Zyloprim] 300 mg PO Q48H Simvastatin [Zocor] 20 mg PO HS Metoprolol Tartrate 25 mg PO BID Tamsulosin [Flomax] 0.4 mg PO QAM sitaGLIPtin PHOS/metFORMIN HCL [Janumet 50-500 mg Tablet] 1 tab PO HS Mirabegron [Myrbetriq] 50 mg PO DAILY Omeprazole 20 mg PO BID Turmeric Root Extract [Turmeric] 500 mg PO DAILY L.acidoph,Paracasei, B.lactis [Probiotic] 1 cap PO DAILY Calcium Carbonate/Vitamin D3 [Calcium 600-Vit D3 200 Tablet] 1 tab PO HS Aspirin EC [Ecotrin Low Dose] 81 mg PO BID Discharge Medication List Allopurinol [Zyloprim] 300 mg PO Q48H 03/01/17 [History] DULoxetine HCL [Cymbalta] 30 mg PO DAILY 03/01/17 [History] Docusate [Colace] 100 mg PO BID 03/01/17 [History] Gabapentin [Neurontin] 300 mg PO BID 03/01/17 [History] Glucosam/Donnie-Msm1/C/Pardeep/Bosw [Glucosamine-Chondroitin Tablet] 1 tab PO HS 03/06 [History] Lisinopril [Zestril] 5 mg PO HS 03/01/17 [History] Metoprolol Tartrate 25 mg PO BID 03/01/17 [History] Multivitamins, Thera [Multivitamin (formulary)] 1 tab PO HS 03/01/17 [History] Simvastatin [Zocor] 20 mg PO HS 03/01/17 [History] Tamsulosin [Flomax] 0.4 mg PO QAM 03/01/17 [History] Mirabegron [Myrbetriq] 50 mg PO DAILY 06/27/17 [History] Omeprazole 20 mg PO BID 06/27/17 [History] sitaGLIPtin PHOS/metFORMIN HCL [Janumet 50-500 mg Tablet] 1 tab PO HS 06/27/17 [ History] Calcium Carbonate/Vitamin D3 [Calcium 600-Vit D3 200 Tablet] 1 tab PO HS [History] L.acidoph,Paracasei, B.lactis [Probiotic] 1 cap PO DAILY 10/11/17 [History] Turmeric Root Extract [Turmeric] 500 mg PO DAILY 10/11/17 [History] Aspirin EC [Ecotrin Low Dose] 81 mg PO BID 11/09/17 [History] Follow up Appointment(s)/Referral(s): Alfredo Self MD [Primary Care Provider] - 1-2 days Ramo Buckley MD [STAFF PHYSICIAN] - 1 Week Activity/Diet/Wound Care/Special Instructions: Discharge home with Ortiz catheter. Please provide the patient with a piston syringe and normal saline so that his can irrigate the catheter if needed. Hold aspirin. Drink plenty of fluids.
--- NOTE | 2017-11-15 13:15 | P.PN ---
Subjective Progress Note Date: 11/15/17 This is a 81-year-old male patient of Dr. Self with past medical history significant for prostate cancer status post radiation therapy, coronary artery disease status post 3 vessel CABG and aortic valve replacement, diabetes mellitus type 2 insulin requiring, hypertension, hyperlipidemia. 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 Yesterday morning he noticed a little bit of blood in his urine and by 9:00 he was unable to urinate at all. He knew that he was starting to get clots that were blocking his flow. He recent had a hospitalization in September for this same. Patient came into [facility] emergency center and a Perdomo catheter placed by Dr. Hinojosa for retention. There is bloody return. His hemoglobin has been stable at 10.5 and repeated 10.1. BUN was 26 and creatinine 1.38. Patient has been placed in the observation unit. His Perdomo catheter has been irrigated for clots. Patient states that he is feeling fine now and ever since the pressure was relieved with the Perdomo he has been feeling improvement. Patient has been resumed on his home medications and vital signs have been stable. He has been afebrile. 11/11: Patient continues to have bloody return in the Perdomo catheter. There are less clots today. Patient states he is eating okay today. Vital signs are stable. Patient has been afebrile. Heart rate is running in the 50s. Hemoglobin today at 9.2. Capillary blood glucose running between 101 and 200. NovoLog scale will be added to metformin and try gentle. IV fluids discontinued. 11/12: Patient still has hematuria with one clot today on nursing irrigation to the bladder, Perdomo catheter is draining well, urology is not complying plating on any fulguration treatments of the bladder, as they had run into problems 6 months ago for the same procedure, no plans for leaving Perdomo catheter on discharge. No medication changes made today, patient's without fever and chills , no urine culture sent since admission, would send for one. 1.2 g of blood loss noted since admission, iron studies to be done, might need iron infusion 11/13: Patient's without any significant complaints including back pain and abdominal pain, no penile pain either, Perdomo catheter draining bright red urine , ongoing periodic saline ladder irrigation for nursing staff, urologyto decide whether cystoscopy will be performed in the morning 11/14: Vital signs have been stable. Patient is using CPAP at night. Hemoglobin is 9.4. Patient is scheduled for cystoscopy today with Dr. Buckley. 11/15: Cystoscopy for yesterday was canceled as patient had clear urine output. Patient's repeat hemoglobin this morning is 9.7 and remained stable. Blood sugars are running between 91 and 132. Patient is being discharged home by Dr. Buckley with plan to continue perdomo irrigation at home. Aspirin on hold until advised to resume at office visit. Objective - Vital Signs Vital signs: Vital Signs Temp 97.9 F 11/15/17 04:41 Pulse 0 L 11/15/17 09:00 Resp 15 11/15/17 04:41 BP 112/53 11/15/17 04:41 Pulse Ox 98 11/15/17 04:41 Intake & Output 11/14/17 11/15/17 11/15/17 18:59 06:59 18:59 Intake Total 135 840 480 Output Total 900 1175 Balance -765 840 -695 Weight 127.6 kg 127.6 kg Intake: IV 100 Oral 35 840 480 Output: Urine 900 1175 Uretheral (Perdomo) 900 1175 Other: Voiding Method Indwelling Catheter Indwelling Catheter Indwelling Catheter - Exam General Appearance: Alert, cooperative, no distress, appears stated age. Neck HEENT: Supple, no lymphadenopathy, no thyroid enlargement, no carotid bruits. Lungs: Clear to auscultation without crackles or wheezes no rhonchi, no deformity. Chest Wall: Chest wall normal expansion with deep inspiration no tenderness and no deformity was found on exam, no costochondral pain or discomfort. Heart: Regular rate and rhythm, S1, S2 normal, no murmur, rub or gallop. Back: Symmetric, no curvature, ROM normal, no CVA tenderness. Abdomen: Soft, non-tender, bowel sounds active all four quadrants, no masses, no organomegaly. Perdomo catheter with clear urine. Extremities: Slight edema with decreased pulse bilaterally, slight discoloration from 5 inches below the knee all the way to the toes area. Skin: Skin color, texture, tugor normal, no rashes or lesions. Neurologic: Alert oriented x3 cranial nerves II through XII intact, no motor deficit, no abnormal balance or gait. - Labs CBC & Chem 7: 11/15/17 07:19 11/13/17 08:03 Labs: Abnormal Lab Results - Last 24 Hours (Table) 11/13/17 11/14/17 11/15/17 Range/Units 08:03 21:56 07:05 RBC (4.30-5.90) m/uL Hgb (13.0-17.5) gm/dL Hct (39.0-53.0) % Lymphocytes # (1.0-4.8) k/uL POC Glucose (mg/dL) 132 H 112 H (75-99) mg/dL Iron 55 L (65-175) ug/dL 11/15/17 Range/Units 07:19 RBC 3.00 L (4.30-5.90) m/uL Hgb 9.7 L (13.0-17.5) gm/dL Hct 29.3 L (39.0-53.0) % Lymphocytes # 0.6 L (1.0-4.8) k/uL POC Glucose (mg/dL) (75-99) mg/dL Iron (65-175) ug/dL Microbiology - Last 24 Hours (Table) 11/13/17 01:32 Urine Culture - Preliminary Urine,Catheterized Group D Enterococcus Assessment and Plan Plan: 1. Gross hematuria. Continue Perdomo catheter irrigation. Continue plan developed by urology. Continue Perdomo catheter irrigation. 2. Acute blood loss with stable hemoglobin. 3. Urinary retention secondary to hematuria. Perdomo catheter in place. Continue Flomax 0.4 mg daily 4. 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 Continue Myrbetriq 50 mg daily. 5. Diabetes mellitus type 2, insulin requiring. Hemoglobin A1c 5.6. Continue Janumet daily. NovoLog scale added. 6. Hypertension. Continue lisinopril 5 mg at bedtime, Lopressor 25 mg twice daily. 7. Hyperlipidemia. Continue Lipitor 10 mg at bedtime. 8. Acute kidney injury (POA) with CKD II. 9. Gastrointestinal prophylaxis. Continue Protonix. 10. DVT prophylaxis. ANGELINA hose and SCDs. Discharge plan: return home Impression and plan of care have been directed as dictated by the signing physician. Amrita Núñez nurse practitioner acting as scribe for signing physician.
== END 2017-11-15 14:05 | disposition home or self-care (01) | DRG 699 ==
LOC: EC 16:09 → 3OBS 20:30 → OBSVTOIN 11-11 13:34 → 5MS5E 11-11 22:49
PROVIDERS: ADMIT Urology; ATTEND Urology
DX: N30.41 Irradiation cystitis with hematuria (principal); D62 Acute posthemorrhagic anemia; N17.9 Acute kidney failure, unspecified; Z68.41 Body mass index [BMI] 40.0-44.9, adult; Z85.46 Personal history of malignant neoplasm of prostate; I12.9 Hypertensive chronic kidney disease with stage 1 through stage 4 chronic kidney disease, or unspecified chronic kidney disease; E11.22 Type 2 diabetes mellitus with diabetic chronic kidney disease; N18.2 Chronic kidney disease, stage 2 (mild); E11.40 Type 2 diabetes mellitus with diabetic neuropathy, unspecified; E78.5 Hyperlipidemia, unspecified; G47.30 Sleep apnea, unspecified; I25.10 Atherosclerotic heart disease of native coronary artery without angina pectoris; N41.9 Inflammatory disease of prostate, unspecified; Y84.2 Radiological procedure and radiotherapy as the cause of abnormal reaction of the patient, or of later complication, without mention of misadventure at the time of the procedure; Z53.8 Procedure and treatment not carried out for other reasons; Z79.4 Long term (current) use of insulin; Z79.82 Long term (current) use of aspirin; Z79.899 Other long term (current) drug therapy; Z82.49 Family history of ischemic heart disease and other diseases of the circulatory system; Z83.3 Family history of diabetes mellitus; Z87.891 Personal history of nicotine dependence; Z92.3 Personal history of irradiation; Z95.1 Presence of aortocoronary bypass graft; Z95.2 Presence of prosthetic heart valve; Z92.21 Personal history of antineoplastic chemotherapy; N28.1 Cyst of kidney, acquired; N47.1 Phimosis; E66.9 Obesity, unspecified; L40.9 Psoriasis, unspecified; R33.8 Other retention of urine; M19.90 Unspecified osteoarthritis, unspecified site
CPT/HCPCS: 36415; 51798; 74018; 80048; 81001; 83036; 83540; 83550; 85025; 87077; 87086; 87186; 96360; 96361; 99285

== ENCOUNTER 2018-02-25 14:07 | Inpatient (IN) | payer MEDICARE ==
[2018-02-25] MEDS ORDERED: IBUPROFEN IV 800 MG in SODIUM CHLORIDE 0.9% 250 ML IV ONE (14:51)
[2018-02-25] MEDS ORDERED: SODIUM CHLORIDE 0.9% 1,000 ML IV STA (14:51)
[2018-02-25] MEDS ORDERED: ACETAMINOPHEN IV (For NPO) 1,000 MG in EMPTY BAG 1 BAG IVPB STA (14:51)
--- NOTE | 2018-02-25 14:52 | ED ---
Weakness HPI - General Chief complaint: Weakness Stated complaint: Weakness Time Seen by Provider: 02/25/18 14:51 Source: patient, EMS, RN notes reviewed, old records reviewed Mode of arrival: EMS Limitations: no limitations - History of Present Illness Initial comments: This is an 82-year-old male the ER for evaluation. Patient presents today for evaluation of weakness, not feeling well. Significant fatigue. Patient states he does have chills sweating, denies abdominal pain no chest pain or shortness of breath. No cough or congestion. No vomiting or diarrhea Y states patient did have diarrhea yesterday with fever MD Complaint: generalized weakness -: days(s) (4) Location: generalized Severity: moderate Quality: aching Consistency: constant Improves with: none Worsens with: movement Context: recent illness Associated Symptoms: fever/chills, nausea/vomiting - Related Data Home Medications Medication Instructions Recorded Confirmed Allopurinol [Zyloprim] 300 mg PO Q48H 03/01/17 02/25/18 DULoxetine HCL [Cymbalta] 30 mg PO DAILY 03/01/17 02/25/18 Docusate [Colace] 100 mg PO BID 03/01/17 02/25/18 Gabapentin [Neurontin] 300 mg PO BID 03/01/17 02/25/18 Glucosam/Donnie-Msm1/C/Pardeep/Bosw 1 tab PO HS 03/01/17 02/25/18 [Glucosamine-Chondroitin Tablet] Lisinopril [Zestril] 5 mg PO HS 03/01/17 02/25/18 Metoprolol Tartrate 25 mg PO BID 03/01/17 02/25/18 Multivitamins, Thera [Multivitamin 1 tab PO HS 03/01/17 02/25/18 (formulary)] Simvastatin [Zocor] 20 mg PO HS 03/01/17 02/25/18 Tamsulosin [Flomax] 0.4 mg PO QAM 03/01/17 02/25/18 Mirabegron [Myrbetriq] 50 mg PO DAILY 06/27/17 02/25/18 Omeprazole 20 mg PO BID 06/27/17 02/25/18 sitaGLIPtin PHOS/metFORMIN HCL 1 tab PO HS 06/27/17 02/25/18 [Janumet 50-500 mg Tablet] Calcium Carbonate/Vitamin D3 1 tab PO HS 10/11/17 02/25/18 [Calcium 600-Vit D3 200 Tablet] Turmeric Root Extract [Turmeric] 500 mg PO DAILY 10/11/17 02/25/18 Ferrous Sulfate [Feosol] 325 mg PO DAILY 02/25/18 02/25/18 Torsemide [Demadex] 40 mg PO BID 02/25/18 02/25/18 Allergies Allergy/AdvReac Type Severity Reaction Status Date / Time No Known Allergies Allergy Verified 02/25/18 17:17 Review of Systems ROS Statement: Those systems with pertinent positive or pertinent negative responses have been documented in the HPI. ROS Other: All systems not noted in ROS Statement are negative. 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 Anemia with blood transfusions. History of Any Multi-Drug Resistant Organisms: ESBL Date of last positivie culture/infection: 12/06/17 MDRO Source:: URINE ESBL Past Surgical History: Cardiac Valve Replacement, Heart Catheterization Additional Past Surgical History / Comment(s): 03/02/17 cystoscopy/evacuation clots and fulguration bladder, 01/20/12 CABG-3 vessel with aortic valve. Past Anesthesia/Blood Transfusion Reactions: No Reported Reaction Past Psychological History: No Psychological Hx Reported Smoking Status: Former smoker Past Alcohol Use History: Occasional Past Drug Use History: None Reported - Past Family History Mother Family Medical History: Myocardial Infarction ([place]) Additional Family Medical History / Comment(s): Mother at age 67 from a myocardial infarction. Father Family Medical History: Diabetes Mellitus, Myocardial Infarction ([place]) Additional Family Medical History / Comment(s): Father from complications from diabetes mellitus that was uncontrolled with frequent episodes of coma. He also has history of myocardial infarction. The patient has no children and no siblings. General Exam Limitations: no limitations General appearance: alert, in no apparent distress Head exam: Present: atraumatic, normocephalic, normal inspection Eye exam: Present: normal appearance, PERRL, EOMI. Absent: scleral icterus, conjunctival injection, periorbital swelling ENT exam: Present: normal exam, mucous membranes moist Neck exam: Present: normal inspection. Absent: tenderness, meningismus, lymphadenopathy Respiratory exam: Present: normal lung sounds bilaterally. Absent: respiratory distress, wheezes, rales, rhonchi, stridor Cardiovascular Exam: Present: normal rhythm, tachycardia, normal heart sounds. Absent: systolic murmur, diastolic murmur, rubs, gallop, clicks GI/Abdominal exam: Present: soft, normal bowel sounds. Absent: distended, tenderness, guarding, rebound, rigid Extremities exam: Present: normal inspection, full ROM, normal capillary refill. Absent: tenderness, pedal edema, joint swelling, calf tenderness Back exam: Present: normal inspection Neurological exam: Present: alert, oriented X3, CN II-XII intact Psychiatric exam: Present: normal affect, normal mood Skin exam: Present: warm, dry, intact, normal color. Absent: rash Course Vital Signs 02/25/18 02/25/18 02/25/18 14:20 16:00 16:09 Temperature 101.9 F H 100.3 F H Pulse Rate 114 H 104 H 100 Respiratory 18 16 20 Rate Blood Pressure 106/53 98/67 93/39 O2 Sat by Pulse 97 97 96 Oximetry 02/25/18 16:30 Temperature 99.0 F Pulse Rate 95 Respiratory 18 Rate Blood Pressure 97/50 O2 Sat by Pulse 95 Oximetry - Reevaluation(s) Reevaluation #1: 02/25/18 18:16 Record is reviewed Reevaluation #2: 02/25/18 18:17 Symptoms improved with fever control and significant IV hydration EKG Findings - EKG Comments: EKG Findings:: EKG shows sinus tachycardia rate 112, MS 200, QRS 06, QTc 455 Medical Decision Making - Medical Decision Making 82-year-old male the ER for evaluation of weakness positive significant urinary tract infection with severe infection, patient given IV antibiotics, significant IV hydration and will admit for continued management treatment of hemodynamic status - Lab Data Result diagrams: 02/25/18 14:55 02/25/18 14:55 Lab Results 12/08/18 12/08/18 12/08/18 Range/Units 14:55 14:55 14:55 WBC 12.1 H (3.8-10.6) k/uL RBC 3.42 L (4.30-5.90) m/uL Hgb 10.2 L (13.0-17.5) gm/dL Hct 32.1 L (39.0-53.0) % MCV 94.0 (80.0-100.0) fL MCH 29.9 (25.0-35.0) pg MCHC 31.8 (31.0-37.0) g/dL RDW 16.1 H (11.5-15.5) % Plt Count 177 (150-450) k/uL Neutrophils % 90 % Lymphocytes % 4 % Monocytes % 4 % Eosinophils % 1 % Basophils % 0 % Neutrophils # 10.9 H (1.3-7.7) k/uL Lymphocytes # 0.5 L (1.0-4.8) k/uL Monocytes # 0.5 (0-1.0) k/uL Eosinophils # 0.1 (0-0.7) k/uL Basophils # 0.0 (0-0.2) k/uL Anisocytosis Slight PT (9.0-12.0) sec INR (<1.2) APTT (22.0-30.0) sec Sodium 136 L (137-145) mmol/L Potassium 4.0 (3.5-5.1) mmol/L Chloride 103 (98-107) mmol/L Carbon Dioxide 24 (22-30) mmol/L Anion Gap 9 mmol/L BUN 25 H (9-20) mg/dL Creatinine 1.62 H (0.66-1.25) mg/dL Est GFR (CKD-EPI)AfAm 46 (>60 ml/min/1.73 sqM) Est GFR (CKD-EPI)NonAf 39 (>60 ml/min/1.73 sqM) Glucose 148 H (74-99) mg/dL Plasma Lactic Acid Judd (0.7-2.0) mmol/L Calcium 8.6 (8.4-10.2) mg/dL Phosphorus 2.0 L (2.5-4.5) mg/dL Magnesium 1.7 (1.6-2.3) mg/dL Total Bilirubin 0.7 (0.2-1.3) mg/dL AST 32 (17-59) U/L ALT 30 (21-72) U/L Alkaline Phosphatase 69 (38-126) U/L Total Creatine Kinase 159 (55-170) U/L CK-MB (CK-2) 1.1 (0.0-2.4) ng/mL CK-MB (CK-2) Rel Index 0.7 Troponin I 0.015 (0.000-0.034) ng/mL Total Protein 6.6 (6.3-8.2) g/dL Albumin 3.4 L (3.5-5.0) g/dL Urine Color Urine Appearance (Clear) Urine pH (5.0-8.0) Ur Specific [place] (1.001-1.035) Urine Protein (Negative) Urine Glucose (UA) (Negative) Urine Ketones (Negative) Urine Blood (Negative) Urine Nitrite (Negative) Urine Bilirubin (Negative) Urine Urobilinogen (<2.0) mg/dL Ur Leukocyte Esterase (Negative) Urine RBC (0-5) /hpf Urine WBC (0-5) /hpf Urine WBC Clumps (None) /hpf Ur Squamous Epith Cells (0-4) /hpf Urine Bacteria (None) /hpf Urine Mucus (None) /hpf Influenza Type A RNA (Not Detectd) Influenza Type B (PCR) (Not Detectd) 02/25/18 02/25/18 02/25/18 Range/Units 14:55 14:55 15:30 WBC (3.8-10.6) k/uL RBC (4.30-5.90) m/uL Hgb (13.0-17.5) gm/dL Hct (39.0-53.0) % MCV (80.0-100.0) fL MCH (25.0-35.0) pg MCHC (31.0-37.0) g/dL RDW (11.5-15.5) % Plt Count (150-450) k/uL Neutrophils % % Lymphocytes % % Monocytes % % Eosinophils % % Basophils % % Neutrophils # (1.3-7.7) k/uL Lymphocytes # (1.0-4.8) k/uL Monocytes # (0-1.0) k/uL Eosinophils # (0-0.7) k/uL Basophils # (0-0.2) k/uL Anisocytosis PT 11.3 (9.0-12.0) sec INR 1.1 (<1.2) APTT 25.5 (22.0-30.0) sec Sodium (137-145) mmol/L Potassium (3.5-5.1) mmol/L Chloride (98-107) mmol/L Carbon Dioxide (22-30) mmol/L Anion Gap mmol/L BUN (9-20) mg/dL Creatinine (0.66-1.25) mg/dL Est GFR (CKD-EPI)AfAm (>60 ml/min/1.73 sqM) Est GFR (CKD-EPI)NonAf (>60 ml/min/1.73 sqM) Glucose (74-99) mg/dL Plasma Lactic Acid Judd 1.5 (0.7-2.0) mmol/L Calcium (8.4-10.2) mg/dL Phosphorus (2.5-4.5) mg/dL Magnesium (1.6-2.3) mg/dL Total Bilirubin (0.2-1.3) mg/dL AST (17-59) U/L ALT (21-72) U/L Alkaline Phosphatase (38-126) U/L Total Creatine Kinase (55-170) U/L CK-MB (CK-2) (0.0-2.4) ng/mL CK-MB (CK-2) Rel Index Troponin I (0.000-0.034) ng/mL Total Protein (6.3-8.2) g/dL Albumin (3.5-5.0) g/dL Urine Color Urine Appearance (Clear) Urine pH (5.0-8.0) Ur Specific [place] (1.001-1.035) Urine Protein (Negative) Urine Glucose (UA) (Negative) Urine Ketones (Negative) Urine Blood (Negative) Urine Nitrite (Negative) Urine Bilirubin (Negative) Urine Urobilinogen (<2.0) mg/dL Ur Leukocyte Esterase (Negative) Urine RBC (0-5) /hpf Urine WBC (0-5) /hpf Urine WBC Clumps (None) /hpf Ur Squamous Epith Cells (0-4) /hpf Urine Bacteria (None) /hpf Urine Mucus (None) /hpf Influenza Type A RNA Not Detected (Not Detectd) Influenza Type B (PCR) Not Detected (Not Detectd) 02/25/18 Range/Units 15:30 WBC (3.8-10.6) k/uL RBC (4.30-5.90) m/uL Hgb (13.0-17.5) gm/dL Hct (39.0-53.0) % MCV (80.0-100.0) fL MCH (25.0-35.0) pg MCHC (31.0-37.0) g/dL RDW (11.5-15.5) % Plt Count (150-450) k/uL Neutrophils % % Lymphocytes % % Monocytes % % Eosinophils % % Basophils % % Neutrophils # (1.3-7.7) k/uL Lymphocytes # (1.0-4.8) k/uL Monocytes # (0-1.0) k/uL Eosinophils # (0-0.7) k/uL Basophils # (0-0.2) k/uL Anisocytosis PT (9.0-12.0) sec INR (<1.2) APTT (22.0-30.0) sec Sodium (137-145) mmol/L Potassium (3.5-5.1) mmol/L Chloride (98-107) mmol/L Carbon Dioxide (22-30) mmol/L Anion Gap mmol/L BUN (9-20) mg/dL Creatinine (0.66-1.25) mg/dL Est GFR (CKD-EPI)AfAm (>60 ml/min/1.73 sqM) Est GFR (CKD-EPI)NonAf (>60 ml/min/1.73 sqM) Glucose (74-99) mg/dL Plasma Lactic Acid Judd (0.7-2.0) mmol/L Calcium (8.4-10.2) mg/dL Phosphorus (2.5-4.5) mg/dL Magnesium (1.6-2.3) mg/dL Total Bilirubin (0.2-1.3) mg/dL AST (17-59) U/L ALT (21-72) U/L Alkaline Phosphatase (38-126) U/L Total Creatine Kinase (55-170) U/L CK-MB (CK-2) (0.0-2.4) ng/mL CK-MB (CK-2) Rel Index Troponin I (0.000-0.034) ng/mL Total Protein (6.3-8.2) g/dL Albumin (3.5-5.0) g/dL Urine Color Yellow Urine Appearance Cloudy (Clear) Urine pH 6.0 (5.0-8.0) Ur Specific [place] 1.009 (1.001-1.035) Urine Protein 1+ H (Negative) Urine Glucose (UA) Negative (Negative) Urine Ketones Negative (Negative) Urine Blood Large H (Negative) Urine Nitrite Negative (Negative) Urine Bilirubin Negative (Negative) Urine Urobilinogen <2.0 (<2.0) mg/dL Ur Leukocyte Esterase Large H (Negative) Urine RBC 131 H (0-5) /hpf Urine WBC >182 H (0-5) /hpf Urine WBC Clumps Occasional H (None) /hpf Ur Squamous Epith Cells <1 (0-4) /hpf Urine Bacteria Moderate H (None) /hpf Urine Mucus Rare H (None) /hpf Influenza Type A RNA (Not Detectd) Influenza Type B (PCR) (Not Detectd) - Radiology Data Radiology results: report reviewed (Chest x-rays negative for acute disease), image reviewed Disposition Clinical Impression: UTI (urinary tract infection), Fever Disposition: ADMITTED IP TO THIS HOSP Condition: Serious Is patient prescribed a controlled substance at d/c from ED?: No Referrals: Alfredo Self MD [Primary Care Provider] - 1-2 days
[2018-02-25 15:15] LABS: Anisocytosis Slight; Basophils % (A) 0 %; Eosinophils # (A) 0.1 k/uL (0-0.7); Eosinophils % (A) 1 %; HCT 32.1 % (39.0-53.0); HGB 10.2 gm/dL (13.0-17.5); Lymphocytes # (A) 0.5 k/uL (1.0-4.8); Lymphocytes % (A) 4 %; MCH 29.9 pg (25.0-35.0); MCHC 31.8 g/dL (31.0-37.0); Monocytes # (A) 0.5 k/uL (0-1.0); Monocytes % (A) 4 %; Neutrophils # (A) 10.9 k/uL (1.3-7.7); Neutrophils % (A) 90 %; Platelet Count 177 k/uL (150-450); RBC 3.42 m/uL (4.30-5.90); RDW 16.1 % (11.5-15.5); WBC 12.1 k/uL (3.8-10.6)
[2018-02-25 15:28] LABS: INR 1.1 (<1.2); Partial Thromboplastin Time 25.5 sec (22.0-30.0); Prothrombin Time 11.3 sec (9.0-12.0)
[2018-02-25 15:36] LABS: Albumin 3.4 g/dL (3.5-5.0); Calcium 8.6 mg/dL (8.4-10.2); Magnesium 1.7 mg/dL (1.6-2.3); Total Bilirubin 0.7 mg/dL (0.2-1.3); Total Protein 6.6 g/dL (6.3-8.2)
[2018-02-25 15:46] LABS: Creatine Kinase MB 1.1 ng/mL (0.0-2.4); Troponin I 0.015 ng/mL (0.000-0.034)
[2018-02-25 16:02] LABS: Appearance,Urine Cloudy (Clear); Bacteria,Urine Moderate /hpf; Bilirubin,Urine Negative (Negative); Blood,Urine Large (Negative); Color,Urine Yellow; Glucose,Urine (UA) Negative (Negative); Ketones,Urine Negative (Negative); Leukocyte Esterase,Urine Large (Negative); Mucus,Urine Rare /hpf; Nitrite,Urine Negative (Negative); Protein,Urine 1+ (Negative); RBC,Urine 131 /hpf (0-5); Specific Gravity,Urine 1.009 (1.001-1.035); Squamous Epithelial Cell,Urine <1 /hpf (0-4); Urobilinogen,Urine <2.0 mg/dL (<2.0); WBC,Urine >182 /hpf (0-5)
--- NOTE | 2018-02-25 16:40 | XR ---
EXAMINATION TYPE: XR chest 2V DATE OF EXAM: 02/25/2018 COMPARISON: Prior chest 10/11/2017 HISTORY: Weakness, fever and diarrhea TECHNIQUE: Frontal and lateral views of the chest are obtained. FINDINGS: There is no focal air space opacity, pleural effusion, or pneumothorax seen. The cardiac silhouette size is stable, enlarged. Patient is post median sternotomy. Prominent lung volumes could be indicative of underlying COPD. The osseous structures are intact. IMPRESSION: No acute cardiopulmonary process.
[2018-02-25] MEDS ORDERED: SODIUM CHLORIDE 0.9% 2,000 ML IV STA (17:13)
[2018-02-25] MEDS ORDERED: cefTRIAXone 2,000 MG in SODIUM CHLORIDE 0.9% 100 ML IVPB STA (18:23)
[2018-02-25] MEDS: SODIUM CHLORIDE 0.9% 1,000 ML IV SCH (19:16)
[2018-02-25] MEDS: SODIUM CHLORIDE 0.9% 500 ML 500 ML IV SCH ×3 (19:18→21:00)
[2018-02-25 20:34] LABS: Glucose,Whole Blood 112 mg/dL (75-99)
[2018-02-25] MEDS: INSULIN ASPART 100 UNIT/ML 1 ML 10 ML VIAL SQ SCH (20:55)
[2018-02-25] MEDS ORDERED: NON-FORMULARY DRUG (Sitagliptin Phos/Metformin Hcl [Janumet 50-500 Mg Tablet] 1 TAB) PO SCH (21:00)
[2018-02-25] MEDS ORDERED: MULTIVITAMINS, THERA 1 EACH TAB PO SCH (21:00)
[2018-02-25] MEDS ORDERED: NON-FORMULARY DRUG (Glucosam/Chon-Msm1/C/Mang/Bosw [Glucosamine-Chondroitin Tablet] 1 TAB) PO SCH (21:00)
[2018-02-25] MEDS: ATORVASTATIN 10 MG TAB PO SCH (21:56)
[2018-02-25] MEDS: CALCIUM CARB-VIT D 500MG-200UN 1 EACH TAB PO SCH (21:56)
[2018-02-25] MEDS: DOCUSATE 100 MG CAP PO SCH (21:57)
[2018-02-25] MEDS: metFORMIN 500 MG TAB PO SCH (21:58)
[2018-02-25] MEDS: METOPROLOL TARTRATE 25 MG TAB PO SCH (21:59)
[2018-02-25] MEDS: LISINOPRIL 5 MG TAB PO SCH (21:59)
[2018-02-25] MEDS: LINAGLIPTIN 5 MG TABLET PO SCH (22:00)
[2018-02-26] MEDS: PIPERACILLIN-TAZOBACTAM 3.375 GM in SODIUM CHLORIDE 0.9% 100 ML IVPB SCH ×2 (00:58→09:21)
[2018-02-26] MEDS ORDERED: METOPROLOL TARTRATE 25 MG TAB PO STA (01:10)
[2018-02-26] MEDS: PANTOPRAZOLE 40 MG TABLET PO SCH ×3 (01:11→17:18)
[2018-02-26] MEDS: ACETAMINOPHEN TAB 325 MG TAB PO PRN ×3 (01:12→21:07)
[2018-02-26] MEDS: SODIUM CHLORIDE 0.9% 1,000 ML IV SCH ×4 (01:30→23:57)
[2018-02-26 07:21] LABS: Glucose,Whole Blood 106 mg/dL (75-99)
[2018-02-26] MEDS ORDERED: PANTOPRAZOLE 40 MG/10 ML VIAL IV SCH (09:00)
[2018-02-26] MEDS: INSULIN ASPART 100 UNIT/ML 1 ML 10 ML VIAL SQ SCH ×4 (09:07→23:41)
[2018-02-26] MEDS: TAMSULOSIN 0.4 MG CAP.ER.24H PO SCH (09:21)
[2018-02-26] MEDS: METOPROLOL TARTRATE 25 MG TAB PO SCH ×2 (09:21→23:56)
[2018-02-26] MEDS: ALLOPURINOL 300 MG TAB PO SCH (09:21)
[2018-02-26] MEDS: DOCUSATE 100 MG CAP PO SCH (09:21)
[2018-02-26] MEDS: DULoxetine HCL 30 MG CAPSULE.DR PO SCH (09:22)
[2018-02-26] MEDS: ENOXAPARIN 40 MG/0.4 ML SYRINGE SQ SCH (09:22)
[2018-02-26] MEDS: PATIENT'S OWN (Mirabegron [Myrbetriq] 50 MG) PO SCH (09:22)
[2018-02-26] MEDS: MULTIVITAMINS, THERA 1 EACH TAB PO SCH (12:17)
[2018-02-26] MEDS: FERROUS SULFATE 325 MG TAB PO SCH (12:17)
[2018-02-26 16:33] LABS: Glucose,Whole Blood 142 mg/dL (75-99)
[2018-02-26] MEDS: MEROPENEM 1 GM in SODIUM CHLORIDE 0.9% 100 ML IVPB SCH (17:18)
--- NOTE | 2018-02-26 19:51 | P.HPIM ---
History of Present Illness H&P Date: 02/26/18 Chief Complaint: weakness This is an 82-year-old male patient of Dr. Self with past medical history significant for prostate cancer status post radiation therapy, coronary artery disease status post 3 vessel CABG and aortic valve replacement, diabetes mellitus type 2 insulin requiring, hypertension, hyperlipidemia. Patient came into the emergency department at [facility] yesterday because of generalized weakness and not feeling well, patient stated that he woke up on Tuesday and he had chills and went to bed for the next 2 days and did not do much, then tried to get out of bed when he slid down and could not get up so his called EMS and was brought to the ER he was evaluated in the ER and he was found to have a mild leukocytosis and a UTI for which she was admitted to the hospital for IV fluid resuscitation as well as IV antibiotic and urine culture and blood culture were sent, ID consultation was obtained from . Review of Systems Constitutional: Reports fever, Reports weakness Eyes: denies blurred vision, denies bulging eye, denies decreased vision Ears: deny: decreased hearing Ears, nose, mouth and throat: Denies dysphagia, Denies neck lump, Denies sore throat Cardiovascular: Reports high blood pressure, Denies chest pain, Denies decreased exercise tolerance, Denies dyspnea on exertion, Denies phlebitis, Denies rapid heart beat, Denies shortness of breath Respiratory: Denies congestion, Denies cough with sputum, Denies hemoptysis, Denies home oxygen, Denies sleep apnea, Denies snoring, Denies wheezing Gastrointestinal: Denies abdominal pain, Denies bloating, Denies BRBPR, Denies heartburn, Denies melena, Denies nausea, Denies vomiting Genitourinary: Reports nocturia, Reports polyuria, Denies dysuria Musculoskeletal: Denies myalgias Musculoskeletal: absent: ankle pain, ankle stiffness, ankle swelling, elbow pain , elbow stiffness, elbow swelling, foot pain, foot stiffness, foot swelling, hand pain, hand stiffness, hand swelling, hip pain, hip stiffness, hip swelling , knee pain, knee stiffness, knee swelling, shoulder pain, shoulder stiffness, shoulder swelling, wrist pain, wrist stiffness, wrist swelling Integumentary: Denies pruritus, Denies rash Neurological: Reports weakness, Denies numbness Psychiatric: Denies anxiety, Denies depression Endocrine: Denies fatigue, Denies weight change Past Medical History Past Medical History: Blood Disorder, Coronary Artery Disease (CAD), Cancer, Diabetes Mellitus, Hyperlipidemia, Hypertension, Osteoarthritis (OA), Prostate Disorder, Renal Disease, Skin Disorder, Sleep Apnea/CPAP/BIPAP Additional Past Medical History / Comment(s): 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 Anemia with blood transfusions. History of Any Multi-Drug Resistant Organisms: ESBL Date of last positivie culture/infection: 12/06/17 MDRO Source:: URINE ESBL Past Surgical History: Cardiac Valve Replacement, Heart Catheterization Additional Past Surgical History / Comment(s): 03/02/17 cystoscopy/evacuation clots and fulguration bladder, 01/20/12 CABG-3 vessel with aortic valve. Past Anesthesia/Blood Transfusion Reactions: No Reported Reaction Past Psychological History: No Psychological Hx Reported Additional Psychological History / Comment(s): Pt resides with his spouse. He ambulates with a walker. He drives.served in [employer]. 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 He drinks occasional alcohol. He denies illicit drug use. Past Drug Use History: None Reported - Past Family History Mother Family Medical History: Myocardial Infarction ([place]) Additional Family Medical History / Comment(s): Mother at age 67 from a myocardial infarction. Father Family Medical History: Diabetes Mellitus, Myocardial Infarction ([place]) Additional Family Medical History / Comment(s): Father from complications from diabetes mellitus that was uncontrolled with frequent episodes of coma. He also has history of myocardial infarction. The patient has no children and no siblings. Medications and Allergies Home Medications Medication Instructions Recorded Confirmed Type Allopurinol [Zyloprim] 300 mg PO Q48H 03/01/17 02/25/18 History DULoxetine HCL [Cymbalta] 30 mg PO DAILY 03/01/17 02/25/18 History Docusate [Colace] 100 mg PO BID 03/01/17 02/25/18 History Gabapentin [Neurontin] 300 mg PO BID 03/01/17 02/25/18 History Glucosam/Donnie-Msm1/C/Pardeep/Bosw 1 tab PO HS 03/01/17 02/25/18 History [Glucosamine-Chondroitin Tablet] Lisinopril [Zestril] 5 mg PO HS 03/01/17 02/25/18 History Metoprolol Tartrate 25 mg PO BID 03/01/17 02/25/18 History Multivitamins, Thera [Multivitamin 1 tab PO HS 03/01/17 02/25/18 History (formulary)] Simvastatin [Zocor] 20 mg PO HS 03/01/17 02/25/18 History Tamsulosin [Flomax] 0.4 mg PO QAM 03/01/17 02/25/18 History Mirabegron [Myrbetriq] 50 mg PO DAILY 06/27/17 02/25/18 History Omeprazole 20 mg PO BID 06/27/17 02/25/18 History sitaGLIPtin PHOS/metFORMIN HCL 1 tab PO HS 06/27/17 02/25/18 History [Janumet 50-500 mg Tablet] Calcium Carbonate/Vitamin D3 1 tab PO HS 10/11/17 02/25/18 History [Calcium 600-Vit D3 200 Tablet] Turmeric Root Extract [Turmeric] 500 mg PO DAILY 10/11/17 02/25/18 History Ferrous Sulfate [Feosol] 325 mg PO DAILY 02/25/18 02/25/18 History Torsemide [Demadex] 40 mg PO BID 02/25/18 02/25/18 History Allergies Allergy/AdvReac Type Severity Reaction Status Date / Time No Known Allergies Allergy Verified 02/25/18 17:17 Physical Exam Vitals: Vital Signs Temp Pulse Pulse Resp BP BP Pulse Ox 02/26/18 04:20 97.5 F L 02/26/18 01:23 97.8 F 78 16 134/67 91 L 02/26/18 01:08 102.3 F H 100 16 107/64 97 02/25/18 20:57 98.2 F 67 16 94/59 98 02/25/18 19:00 97.7 F 75 16 108/62 95 02/25/18 18:00 63 16 100/58 98 02/25/18 17:00 98.5 F 89 18 85/45 97 02/25/18 16:30 99.0 F 95 18 97/50 95 02/25/18 16:09 100 20 93/39 96 02/25/18 16:00 100.3 F H 104 H 16 98/67 97 02/25/18 14:20 101.9 F H 114 H 18 106/53 97 Intake and Output 02/25/18 02/25/18 02/26/18 14:59 22:59 06:59 Intake Total 480 Balance 480 Intake: Oral 480 Other: # Voids 400 # Bowel Movements 1 Weight 113.398 kg - Constitutional General appearance: average body habitus, no acute distress - EENT Eyes: anicteric sclerae, EOMI, PERRLA, no ptosis, no scleral icterus, normal appearance ENT: hearing grossly normal, NA/AT, normal oropharynx, no thrush Ears: bilateral: normal - Neck Neck: no lymphadenopathy, normal ROM, no rigidity, no stridor, no thyromegaly Carotids: bilateral: upstroke normal - Respiratory Respiratory: bilateral: diminished, negative: dullness, rales, rhonchi, wheezing , prolonged expiration, prolonged inspiration - Cardiovascular Rhythm: regular Heart sounds: normal: S1, S2 Abnormal Heart Sounds: systolic murmur - Gastrointestinal General gastrointestinal: normal bowel sounds, soft, no splenomegaly, no tenderness, no umbilical hernia, no ventral hernia - Integumentary Integumentary: normal, normal turgor - Neurologic Neurologic: CNII-XII intact - Musculoskeletal Musculoskeletal: generalized weakness, strength equal bilaterally - Psychiatric Psychiatric: A&O x's 3, appropriate affect, intact judgment & insight Results CBC & Chem 7: 02/25/18 14:55 02/25/18 14:55 Labs: Abnormal Lab Results - Last 24 Hours (Table) 02/25/18 02/25/18 02/25/18 Range/Units 14:55 14:55 15:30 WBC 12.1 H (3.8-10.6) k/uL RBC 3.42 L (4.30-5.90) m/uL Hgb 10.2 L (13.0-17.5) gm/dL Hct 32.1 L (39.0-53.0) % RDW 16.1 H (11.5-15.5) % Neutrophils # 10.9 H (1.3-7.7) k/uL Lymphocytes # 0.5 L (1.0-4.8) k/uL Sodium 136 L (137-145) mmol/L BUN 25 H (9-20) mg/dL Creatinine 1.62 H (0.66-1.25) mg/dL Glucose 148 H (74-99) mg/dL POC Glucose (mg/dL) (75-99) mg/dL Phosphorus 2.0 L (2.5-4.5) mg/dL Albumin 3.4 L (3.5-5.0) g/dL Urine Protein 1+ H (Negative) Urine Blood Large H (Negative) Ur Leukocyte Esterase Large H (Negative) Urine RBC 131 H (0-5) /hpf Urine WBC >182 H (0-5) /hpf Urine WBC Clumps Occasional H (None) /hpf Urine Bacteria Moderate H (None) /hpf Urine Mucus Rare H (None) /hpf 02/25/18 Range/Units 20:23 WBC (3.8-10.6) k/uL RBC (4.30-5.90) m/uL Hgb (13.0-17.5) gm/dL Hct (39.0-53.0) % RDW (11.5-15.5) % Neutrophils # (1.3-7.7) k/uL Lymphocytes # (1.0-4.8) k/uL Sodium (137-145) mmol/L BUN (9-20) mg/dL Creatinine (0.66-1.25) mg/dL Glucose (74-99) mg/dL POC Glucose (mg/dL) 112 H (75-99) mg/dL Phosphorus (2.5-4.5) mg/dL Albumin (3.5-5.0) g/dL Urine Protein (Negative) Urine Blood (Negative) Ur Leukocyte Esterase (Negative) Urine RBC (0-5) /hpf Urine WBC (0-5) /hpf Urine WBC Clumps (None) /hpf Urine Bacteria (None) /hpf Urine Mucus (None) /hpf Microbiology - Last 24 Hours (Table) 02/25/18 15:30 Urine Culture - Preliminary Urine,Voided Thrombosis Risk Factor Assmnt - DVT/VTE Prophylaxis DVT/VTE Prophylaxis: Pharmacologic Prophylaxis ordered, Mechanical Prophylaxis ordered - Choose All That Apply Any of the Below Risk Factors Present?: No Other Risk Factors: Yes Each Risk Factor Represents 3 Points: Age 75 years or older Thrombosis Risk Factor Assessment Total Risk Factor Score: 3 Thrombosis Risk Factor Assessment Level: Moderate Risk Assessment and Plan Assessment: Assessment and plan: 1. UTI with sepsis. Continue IV fluid, continue IV antibiotic in the form of Zosyn, urine culture, blood culture, ID consultation. 2. 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 Continue Myrbetriq 50 mg daily. 3. Diabetes mellitus type 2, insulin requiring. Continue Janumet daily. 4. Hypertension. Continue lisinopril 5 mg at bedtime, Lopressor 25 mg twice daily. 5. CAD status post CABG. Continue Lopressor 25 mg orally twice every day, continue patient on Lipitor 10 mg orally once every day. 6. Status post aortic valve replacement. Stable. 7. Hyperlipidemia. Continue Lipitor 10 mg at bedtime. 8. Acute kidney injury. Hold torsemide for now, and hold lisinopril because of the low blood pressure, monitor the patient very closely, continue IV fluid resuscitation, repeat CMP tomorrow morning. 9. Anemia. Probably chronic. Monitor CBC. 10. Gastrointestinal prophylaxis. Continue Protonix 40 mg orally once every day. 11. DVT prophylaxis. ANGELINA belle and ANITAs. 12. Patient is full code. 13. Admit to inpatient. Estimate length of stay 2 midnights.
[2018-02-26] MEDS: SUCRALFATE 1 GM TAB PO SCH (21:01)
[2018-02-26] MEDS ORDERED: SODIUM CHLORIDE 0.9% 500 ML 500 ML IV ONE (21:23)
[2018-02-26 21:27] LABS: Glucose,Whole Blood 139 mg/dL (75-99)
[2018-02-26 21:33] LABS: Anisocytosis Slight; HCT 32.7 % (39.0-53.0); HGB 10.8 gm/dL (13.0-17.5); MCH 30.8 pg (25.0-35.0); MCHC 33.2 g/dL (31.0-37.0); MCV 92.9 fL (80.0-100.0); Mean Platelet Volume 7.7; Platelet Count 163 k/uL (150-450); RBC 3.51 m/uL (4.30-5.90)
[2018-02-26] MEDS ORDERED: FUROSEMIDE 10 MG/ML 4 ML VIAL ONE (21:40)
--- NOTE | 2018-02-26 21:43 | XR ---
EXAMINATION TYPE: XR chest 1V portable DATE OF EXAM: 02/26/2018 COMPARISON: 02/25/2018 HISTORY: Short of breath TECHNIQUE: Single frontal view of the chest is obtained. FINDINGS: There is pulmonary vascular congestion and pulmonary edema. There are chest leads. There a re sternal wires. There is slight blunting of costophrenic angles. IMPRESSION: There is evidence for new congestive heart failure compared to yesterday.
[2018-02-26 21:45] LABS: Albumin 3.1 g/dL (3.5-5.0); Calcium 8.3 mg/dL (8.4-10.2); Magnesium 1.6 mg/dL (1.6-2.3); Phosphorus 2.7 mg/dL (2.5-4.5); Potassium 3.7 mmol/L (3.5-5.1); Total Bilirubin 0.7 mg/dL (0.2-1.3); Total Protein 6.4 g/dL (6.3-8.2)
[2018-02-26 21:58] LABS: Glucose,Whole Blood 143 mg/dL (75-99)
[2018-02-26 22:03] LABS: ABG Base Excess -5.7 mmol/L; ABG HCO3 19 mmol/L (21-25); ABG PCO2 33 mmHg (35-45); ABG PH 7.38 (7.35-7.45); ABG PO2 248 mmHg (83-108); ABG TCO2 20 mmol/L (19-24)
--- NOTE | 2018-02-26 22:03 | CONS ---
CONSULTATION DATE OF SERVICE: 02/26/2018. REASON FOR CONSULTATION: Sepsis with gram-negative bacteremia. HISTORY OF PRESENT ILLNESS: The patient is an 82-year-old male with a past medical history significant for prostate cancer status post radiation therapy, history of recurrent urinary tract infection. The patient started getting sick on Tuesday. The patient says he woke up and did have a fever and chills and no energy, just generalized not feeling well. The patient said he did not do anything and just stayed in the bed. On the day of presentation to hospital, the patient was trying to get out of the bed and fell down, did not lose consciousness or hit his head. His was unable to get him up. EMG was called who subsequently brought the patient into the [facility] ER. On arrival to the ER, the patient did have a chest x-ray completed which was negative for any acute cardiopulmonary process. The patient was noticed to be febrile with a fever of 101.9 degrees Fahrenheit and subsequently had a fever of 102.3 Fahrenheit this morning. The patient also has elevated white count of 12.1, creatinine slightly elevated at 1.62. Liver enzymes are normal. Electrolytes are normal. The patient urine was significantly positive with large leukocyte esterase, more than 1-2 WBC with occasional WBC clumps. Influenza PCR was negative. The patient did have blood cultures done which show any gram-negative bacilli. He was treated with Zosyn. Infectious Disease was consulted for further recommendation regarding antibiotic therapy. The patient currently denies having any headache. No URI symptoms. No chest pain. No shortness of breath or cough. No nausea, vomiting and no diarrhea. REVIEW OF SYSTEMS: Positive points have been mentioned in HPI. The rest of the review of systems has been negative. PAST MEDICAL HISTORY: Coronary artery disease, diabetes mellitus, hypertension, hyperlipidemia, osteoarthritis, prostate cancer, renal insufficiency, sleep apnea, radiation cystitis. PAST SURGICAL HISTORY: Heart catheterization and cardiac valve replacement. SOCIAL HISTORY: Remote history of smoking, occasionally drinks. No drug use. FAMILY HISTORY: The mother with history of ID. Father with history of diabetes and ID. ALLERGIES: No known drug allergies. MEDICATIONS: The patient is currently on Tylenol, Zyloprim, Lipitor, Os-Archie D, Colace, Cymbalta, Lovenox, iron sulfate, NovoLog, Tradjenta, Zestril, Zosyn, Glucophage, Lopressor, Theragran, Protonix, Carafate and Flomax. PHYSICAL EXAMINATION: Blood pressure is 123/79 with a pulse of 89, temperature 98.8, T-max 102. He is 96% on room air. General description is an elderly male lying in bed in no distress. No tachypnea or accessory muscles of respiration use. HEENT: Shows pallor. No scleral icterus. Oral mucosa membranes are dry. No pharyngeal erythema or thrush. Neck trachea central. No thyromegaly. Lungs unlabored breathing. Clear to auscultation anteriorly. No wheeze or crackles. Heart S1, S2. Regular rate and rhythm. ABDOMEN: Soft, no tenderness. No guarding. No rigidity. No organomegaly. EXTREMITIES: No edema of the feet. Skin examination: No rash or mass palpable. Neurologic: The patient is awake, alert, oriented times three. Mood and affect normal. LABS: Hemoglobin is 10.2, white count 12.1. BUN of 25, creatinine 1.62. Electrolytes have been normal. Liver enzymes are normal. Urine has been significantly positive. Large leukocyte esterase. More than 1 to 2 WBC. Influenza serology has been negative. Chest x-ray were negative. Blood and urine cultures with gram-negative bacilli. DIAGNOSTIC IMPRESSION AND PLAN: Patient admitted to the hospital with sepsis in this patient who did have a fever of 102 Fahrenheit. The patient did have tachycardia, elevated white count now with evidence of a gram-negative bacteremia. Source is likely urinary tract infection, possible pyelonephritis with elevated creatinine and history of a bladder cancer, likely a complicated urinary tract infection. The patient who did have a history of the ESBL E coli, urinary tract infection could be seen in resistant ESBL E coli with elevated creatinine. Will need to rule out underlying . PLAN: 1. Discontinue the Zosyn. 2. Will start the patient on meropenem 1 g q.8 hours. 3. We will obtain ultrasound of the kidneys and bladder area. 4. We will follow up on clinical condition and culture to further adjust medication if needed. Thank you for this consult. Will follow this patient along with you. Plan of care was discussed with the admitting physician. MMODL / IJN: [id number] /
[2018-02-26] MEDS: LISINOPRIL 5 MG TAB PO SCH (23:41)
[2018-02-26] MEDS: ATORVASTATIN 10 MG TAB PO SCH (23:56)
[2018-02-26] MEDS: CALCIUM CARB-VIT D 500MG-200UN 1 EACH TAB PO SCH (23:56)
[2018-02-26] MEDS: LINAGLIPTIN 5 MG TABLET PO SCH (23:56)
[2018-02-26] MEDS: metFORMIN 500 MG TAB PO SCH (23:56)
[2018-02-27] MEDS: DOCUSATE 100 MG CAP PO SCH ×3 (01:21→20:17)
[2018-02-27] MEDS: MEROPENEM 1 GM in SODIUM CHLORIDE 0.9% 100 ML IVPB SCH ×3 (02:00→20:19)
[2018-02-27 05:03] LABS: Anisocytosis Slight; Basophils % (A) 0 %; Eosinophils % (A) 0 %; HCT 32.1 % (39.0-53.0); HGB 10.2 gm/dL (13.0-17.5); Lymphocytes # (A) 0.6 k/uL (1.0-4.8); Lymphocytes % (A) 6 %; MCH 30.1 pg (25.0-35.0); MCHC 31.9 g/dL (31.0-37.0); MCV 94.3 fL (80.0-100.0); Mean Platelet Volume 7.7; Monocytes # (A) 0.4 k/uL (0-1.0); Monocytes % (A) 4 %; Neutrophils # (A) 8.6 k/uL (1.3-7.7); Neutrophils % (A) 88 %; Platelet Count 185 k/uL (150-450); RDW 16.3 % (11.5-15.5); WBC 9.8 k/uL (3.8-10.6)
[2018-02-27 05:15] LABS: Albumin 2.9 g/dL (3.5-5.0); Calcium 8.2 mg/dL (8.4-10.2); Magnesium 1.8 mg/dL (1.6-2.3); Potassium 4.1 mmol/L (3.5-5.1); Total Bilirubin 0.5 mg/dL (0.2-1.3); Total Protein 5.9 g/dL (6.3-8.2)
[2018-02-27] MEDS ORDERED: Magnesium Replacement Protocol 1 EACH MISC MISCELLANE PRN (05:43)
[2018-02-27] MEDS: SODIUM CHLORIDE 0.9% 1,000 ML IV SCH ×3 (05:55→22:07)
[2018-02-27] MEDS: INSULIN ASPART 100 UNIT/ML 1 ML 10 ML VIAL SQ SCH ×4 (08:58→22:20)
[2018-02-27] MEDS: METOPROLOL TARTRATE 25 MG TAB PO SCH ×2 (09:18→20:17)
[2018-02-27] MEDS: PANTOPRAZOLE 40 MG TABLET PO SCH ×2 (09:18→17:21)
[2018-02-27] MEDS: TAMSULOSIN 0.4 MG CAP.ER.24H PO SCH (09:19)
[2018-02-27] MEDS: DULoxetine HCL 30 MG CAPSULE.DR PO SCH (09:19)
[2018-02-27] MEDS: SUCRALFATE 1 GM TAB PO SCH ×2 (09:19→17:21)
[2018-02-27] MEDS: ENOXAPARIN 40 MG/0.4 ML SYRINGE SQ SCH (09:19)
[2018-02-27] MEDS ORDERED: FUROSEMIDE 10 MG/ML 10 ML VIAL IV STA (09:24)
[2018-02-27] MEDS: PATIENT'S OWN (Mirabegron [Myrbetriq] 50 MG) PO SCH (09:27)
[2018-02-27] MEDS ORDERED: FUROSEMIDE 10 MG/ML 4 ML VIAL ONE (09:30)
[2018-02-27] MEDS ORDERED: FUROSEMIDE 10 MG/ML 4 ML VIAL IV STA (09:34)
[2018-02-27] MEDS: MAGNESIUM SULFATE-D5W PMX 1 GM in DEXTROSE/WATER 1 100ML.BAG IVPB SCH ×2 (09:37→10:56)
--- NOTE | 2018-02-27 09:41 | US ---
EXAMINATION TYPE: US renals and bladder DATE OF EXAM: 02/27/2018 COMPARISON: CT 02/25/2017 CLINICAL HISTORY: recurrent UTI , Elevated CR. EXAM MEASUREMENTS: Right Kidney: 11.1 x 5.2 x 5.2 cm Left Kidney: 11.7 x 6.4 x 5.2 cm Right Kidney: No hydronephrosis or masses seen Left Kidney: No hydronephrosis. Multiple cystic areas visualized, largest lower pole measuring 3.5 x 2.4 x 3.2 cm. This appears simple. There appears to be a column of [place] present. Bladder: Not distended, patient has perdomo Bilateral Jets seen: No, see above Free fluid visualized visualized adjacent to the liver There is no evidence for hydronephrosis at this point in time. No nephrolithiasis is seen. No kyle s are identified. IMPRESSION: 1. Renal cysts present. The largest on the left measures 3 cm. 2. Minimal ascites adjacent to the liver.
[2018-02-27 10:13] LABS: Hemoglobin A1C 6.4 % (4.0-6.0)
--- NOTE | 2018-02-27 12:30 | P.CNPUL ---
History of Present Illness Consult date: 02/27/18 Requesting physician: Evy Worthington Reason for consult: other (Acute urinary tract infection and sepsis.) Chief complaint: Weakness History of present illness: This is an 82-year-old white male with history of multiple medical problems including coronary artery disease and previous CABG 3, previous aortic valve replacement, type 2 diabetes, hypertension, prostate cancer status post radiation therapy, and recurrent urinary tract infections. Patient presented to the ER last night complaining of few days' history of generalized weakness, not feeling well, also complaining of chills, upon evaluation in the ER, patient was noted to have leukocytosis, and evidence of urinary tract infection. Patient was admitted, placed empirically on antibiotics, he is now on Merrem as recommended by the infectious disease physician on the case, and his blood cultures came back positive for E. coli, urine cultures came back positive for E. coli. Patient received fluid boluses, and his chest x-ray went on to show evidence of interstitial edema. He did not require any pressors, presently on diuretics for what seems to be interstitial edema. This could be cardiogenic or noncardiogenic in nature at this point. Patient is requiring to be on BiPAP, he is on 50% FiO2, IPAP of 12 and EPAP of 6. Presently in the ICU on BiPAP. Review of Systems Constitutional: Complains of generalized weakness, fever, and chills. Eyes: denies blurred vision, denies bulging eye, denies decreased vision Ears, nose, mouth and throat: Denies sore throat, denies any pressure or fullness over the sinuses, denies any nasal discharge, denies decreased hearing. Cardiovascular: Denies any chest pain, no palpitation, no diaphoresis. He does have some shortness of breath. Respiratory: Shortness of breath no cough no wheezing usually uses BiPAP for history of obstructive sleep apnea syndrome. Gastrointestinal: Denies abdominal pain, melena, hematemesis. Genitourinary: Denies dysuria, but he has polyuria, and not to her yet. Musculoskeletal: knee swelling, shoulder pain, shoulder stiffness, shoulder swelling, wrist pain, wrist stiffness, wrist swelling Integumentary: Denies pruritus, Denies rash Neurological: Reports weakness, Denies numbness Psychiatric: Denies anxiety, Denies depression Endocrine: Denies fatigue, Denies weight change Past Medical History Past Medical History: Blood Disorder, Coronary Artery Disease (CAD), Cancer, Diabetes Mellitus, Hyperlipidemia, Hypertension, Osteoarthritis (OA), Prostate Disorder, Renal Disease, Skin Disorder, Sleep Apnea/CPAP/BIPAP Additional Past Medical History / Comment(s): 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 Anemia with blood transfusions. History of Any Multi-Drug Resistant Organisms: ESBL Date of last positivie culture/infection: 12/06/17 MDRO Source:: URINE ESBL Past Surgical History: Cardiac Valve Replacement, Heart Catheterization Additional Past Surgical History / Comment(s): 03/02/17 cystoscopy/evacuation clots and fulguration bladder, 01/20/12 CABG-3 vessel with aortic valve. Past Anesthesia/Blood Transfusion Reactions: No Reported Reaction Past Psychological History: No Psychological Hx Reported Additional Psychological History / Comment(s): Pt resides with his spouse. He ambulates with a walker. He drives.served in [employer]. 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 He drinks occasional alcohol. He denies illicit drug use. Past Drug Use History: None Reported - Past Family History Mother Family Medical History: Myocardial Infarction ([place]) Additional Family Medical History / Comment(s): Mother at age 67 from a myocardial infarction. Father Family Medical History: Diabetes Mellitus, Myocardial Infarction ([place]) Additional Family Medical History / Comment(s): Father from complications from diabetes mellitus that was uncontrolled with frequent episodes of coma. He also has history of myocardial infarction. The patient has no children and no siblings. Medications and Allergies Home Medications Medication Instructions Recorded Confirmed Type Allopurinol [Zyloprim] 300 mg PO Q48H 03/01/17 02/25/18 History DULoxetine HCL [Cymbalta] 30 mg PO DAILY 03/01/17 02/25/18 History Docusate [Colace] 100 mg PO BID 03/01/17 02/25/18 History Gabapentin [Neurontin] 300 mg PO BID 03/01/17 02/25/18 History Glucosam/Donnie-Msm1/C/Pardeep/Bosw 1 tab PO HS 03/01/17 02/25/18 History [Glucosamine-Chondroitin Tablet] Lisinopril [Zestril] 5 mg PO HS 03/01/17 02/25/18 History Metoprolol Tartrate 25 mg PO BID 03/01/17 02/25/18 History Multivitamins, Thera [Multivitamin 1 tab PO HS 03/01/17 02/25/18 History (formulary)] Simvastatin [Zocor] 20 mg PO HS 03/01/17 02/25/18 History Tamsulosin [Flomax] 0.4 mg PO QAM 03/01/17 02/25/18 History Mirabegron [Myrbetriq] 50 mg PO DAILY 06/27/17 02/25/18 History Omeprazole 20 mg PO BID 06/27/17 02/25/18 History sitaGLIPtin PHOS/metFORMIN HCL 1 tab PO HS 06/27/17 02/25/18 History [Janumet 50-500 mg Tablet] Calcium Carbonate/Vitamin D3 1 tab PO HS 10/11/17 02/25/18 History [Calcium 600-Vit D3 200 Tablet] Turmeric Root Extract [Turmeric] 500 mg PO DAILY 10/11/17 02/25/18 History Ferrous Sulfate [Feosol] 325 mg PO DAILY 02/25/18 02/25/18 History Torsemide [Demadex] 40 mg PO BID 02/25/18 02/25/18 History Allergies Allergy/AdvReac Type Severity Reaction Status Date / Time No Known Allergies Allergy Verified 02/25/18 17:17 Physical Exam Vitals: Vital Signs Temp Pulse Pulse Resp BP BP Pulse Ox 02/27/18 12:00 99.4 F 121 H 21 105/74 90 L 02/27/18 11:00 115 H 22 93/59 91 L 02/27/18 10:00 124 H 29 H 103/77 91 L 02/27/18 09:00 125 H 28 H 114/78 92 L 02/27/18 08:00 103 H 22 119/74 90 L 02/27/18 07:00 102 H 32 H 120/82 91 L 02/27/18 06:00 118 H 29 H 110/73 92 L 02/27/18 05:58 118 H 25 H 110/73 91 L 02/27/18 05:00 86 19 105/65 90 L 02/27/18 04:00 98.5 F 79 22 88/58 02/27/18 03:00 82 21 86/69 93 L 02/27/18 02:00 83 02/27/18 01:00 95 21 95/67 94 L 02/27/18 00:00 99.3 F 128 H 24 106/71 95 02/26/18 23:00 99.9 F H 131 H 25 H 117/71 95 02/26/18 19:05 99.7 F H 104 H 16 115/66 90 L Intake and Output 02/26/18 02/27/18 02/27/18 22:59 06:59 14:59 Intake Total 75 525 625 Output Total 700 1936 2049 Balance -767 -7237 -2497 Intake: IV 75 525 625 0.9 450 325 Magnesium Sulfate-D5w Pmx 200 1 gm In Dextrose/Water 1 100ml.bag @ 100 mls/hr IVPB Q1H [facility]MY Rx#: [id number] Meropenem 1 gm In Sodium 100 Chloride 0.9% 100 ml @ 200 mls/hr IVPB Q8HR [facility]MY Rx#:[id number] Sodium Chloride 0.9% 1, 75 75 000 ml @ 50 mls/hr IV . Q20H [facility]MY Rx#:[id number] Output: Urine 700 1936 2049 Other: Voiding Method Incontinent Indwelling Catheter Indwelling Catheter # Bowel Movements 1 Weight 115 kg General appearance: Revealed an 82-year-old white male, obese, in no distress, presently on BiPAP. Head exam: atraumatic, normocephalic, Eye exam: normal appearance, PERRL, EOMI. Absent: scleral icterus, conjunctival injection, periorbital swelling ENT exam: normal exam, mucous membranes moist Neck exam: normal inspection. Absent: tenderness, meningismus, lymphadenopathy Respiratory exam: Diminished breath sounds at the bases, crackles noted, no rhonchi and no wheezes. Cardiovascular Exam: normal rhythm, tachycardia, normal heart sounds. Absent: systolic murmur, diastolic murmur, rubs, gallop, clicks GI/Abdominal exam: Obese, soft, normal bowel sounds. Negative rebound, guarding , positive bowel sounds Extremities exam: normal inspection, full ROM, normal capillary refill. Absent : tenderness, pedal edema, joint swelling, calf tenderness Back exam: normal inspection Neurological exam: alert, oriented X3, CN II-XII intact Psychiatric exam: normal affect, normal mood Skin exam: Present: warm, dry, intact, normal color. No evidence of erythema or rashes. Results - Laboratory Findings CBC and BMP: 02/27/18 04:23 02/27/18 04:23 ABG ABG pH 7.38 (7.35-7.45) 02/26/18 21:53 ABG pCO2 33 mmHg (35-45) L 02/26/18 21:53 ABG pO2 248 mmHg (83-108) H 02/26/18 21:53 ABG O2 Saturation 100.0 % (94-97) H 02/26/18 21:53 PT/INR, D-dimer PT 11.3 sec (9.0-12.0) 02/25/18 14:55 INR 1.1 (<1.2) 02/25/18 14:55 Abnormal lab findings: Abnormal Labs 02/25/18 02/25/18 02/25/18 14:55 14:55 14:58 WBC 12.1 H RBC 3.42 L Hgb 10.2 L Hct 32.1 L RDW 16.1 H Neutrophils # 10.9 H Lymphocytes # 0.5 L ABG pCO2 ABG pO2 ABG HCO3 ABG O2 Saturation Sodium 136 L Chloride Carbon Dioxide BUN 25 H Creatinine 1.62 H Glucose 148 H POC Glucose (mg/dL) Hemoglobin A1c 6.4 H Calcium Phosphorus 2.0 L AST Total Protein Albumin 3.4 L Urine Protein Urine Blood Ur Leukocyte Esterase Urine RBC Urine WBC Urine WBC Clumps Urine Bacteria Urine Mucus 02/25/18 02/25/18 02/26/18 15:30 20:23 07:20 WBC RBC Hgb Hct RDW Neutrophils # Lymphocytes # ABG pCO2 ABG pO2 ABG HCO3 ABG O2 Saturation Sodium Chloride Carbon Dioxide BUN Creatinine Glucose POC Glucose (mg/dL) 112 H 106 H Hemoglobin A1c Calcium Phosphorus AST Total Protein Albumin Urine Protein 1+ H Urine Blood Large H Ur Leukocyte Esterase Large H Urine RBC 131 H Urine WBC >182 H Urine WBC Clumps Occasional H Urine Bacteria Moderate H Urine Mucus Rare H 02/26/18 02/26/18 02/26/18 16:31 21:15 21:18 WBC RBC 3.51 L Hgb 10.8 L Hct 32.7 L RDW 16.0 H Neutrophils # Lymphocytes # ABG pCO2 ABG pO2 ABG HCO3 ABG O2 Saturation Sodium Chloride Carbon Dioxide BUN Creatinine Glucose POC Glucose (mg/dL) 142 H 139 H Hemoglobin A1c Calcium Phosphorus AST Total Protein Albumin Urine Protein Urine Blood Ur Leukocyte Esterase Urine RBC Urine WBC Urine WBC Clumps Urine Bacteria Urine Mucus 02/26/18 02/26/18 02/26/18 21:18 21:46 21:53 WBC RBC Hgb Hct RDW Neutrophils # Lymphocytes # ABG pCO2 33 L ABG pO2 248 H ABG HCO3 19 L ABG O2 Saturation 100.0 H Sodium Chloride 109 H Carbon Dioxide 18 L BUN Creatinine 1.47 H Glucose 143 H POC Glucose (mg/dL) 143 H Hemoglobin A1c Calcium 8.3 L Phosphorus AST 70 H Total Protein Albumin 3.1 L Urine Protein Urine Blood Ur Leukocyte Esterase Urine RBC Urine WBC Urine WBC Clumps Urine Bacteria Urine Mucus 02/27/18 02/27/18 04:23 04:23 WBC RBC 3.40 L Hgb 10.2 L Hct 32.1 L RDW 16.3 H Neutrophils # 8.6 H Lymphocytes # 0.6 L ABG pCO2 ABG pO2 ABG HCO3 ABG O2 Saturation Sodium Chloride Carbon Dioxide BUN Creatinine 1.58 H Glucose 136 H POC Glucose (mg/dL) Hemoglobin A1c Calcium 8.2 L Phosphorus AST 69 H Total Protein 5.9 L Albumin 2.9 L Urine Protein Urine Blood Ur Leukocyte Esterase Urine RBC Urine WBC Urine WBC Clumps Urine Bacteria Urine Mucus - Diagnostic Findings Chest x-ray: image reviewed (Chest x-ray is strongly suspicious of pulmonary edema, there is slight blunting of the costophrenic angles.) Additional studies: Renal ultrasound showed minimal ascites adjacent to the liver otherwise relatively unremarkable. Assessment and Plan Assessment: Impression: 1 acute sepsis secondary to acute urinary tract infection secondary to E. coli. Possible ESBL, patient is now on Merrem. Agree with the infectious disease consultation and treatment. 2 possibility of pyelonephritis is being considered, however ultrasound is nondiagnostic. 3 acute kidney injury secondary to sepsis. 4 suspect some component of pulmonary edema and systolic dysfunction, however the possibility of noncardiogenic pulmonary edema is not entirely ruled out. Patient will be diuresed, we'll keep a close watch on his chest x-ray. In the meantime continue BiPAP. Patient seems to be developing a picture of acute hypoxic respiratory failure secondary to interstitial edema. 5 history of obstructive sleep apnea normally on BiPAP at home. 3 history of multiple comorbidities including prostate cancer, previous radiation and previous radiation cystitis, hypertension, type 2 diabetes, previous CABG, and previous aortic valve replacement. History of hyperlipidemia , history of obstructive sleep apnea syndrome. Recommendation: Continue to monitor in the ICU, continue antibiotics, hemodynamic support if needed using pressors. Continue BiPAP. Patient did receive Lasix earlier today, and we will keep a close watch on his overall pulmonary status. Prognosis is guarded, discussed his condition with him and with his at bedside. We'll continue to follow. Time with Patient: Greater than 30
[2018-02-27] MEDS: MULTIVITAMINS, THERA 1 EACH TAB PO SCH (12:31)
[2018-02-27] MEDS: FERROUS SULFATE 325 MG TAB PO SCH ×2 (12:31→12:33)
[2018-02-27 12:38] LABS: Glucose,Whole Blood 172 mg/dL (75-99)
--- NOTE | 2018-02-27 13:22 | P.PN ---
Subjective Progress Note Date: 02/27/18 This is an 82-year-old male patient of Dr. Self with past medical history significant for prostate cancer status post radiation therapy, coronary artery disease status post 3 vessel CABG and aortic valve replacement, diabetes mellitus type 2 insulin requiring, hypertension, hyperlipidemia. Patient came into the emergency department at [facility] yesterday because of generalized weakness and not feeling well, patient stated that he woke up on Tuesday and he had chills and went to bed for the next 2 days and did not do much, then tried to get out of bed when he slid down and could not get up so his called EMS and was brought to the ER he was evaluated in the ER and he was found to have a mild leukocytosis and a UTI for which she was admitted to the hospital for IV fluid resuscitation as well as IV antibiotic and urine culture and blood culture were sent, ID consultation was obtained from . 02/27: During the night, [facility]-Team was called because patient's pulse ox dropped to 70s, he was diaphoretic and feeling short of breath with heart rate in the 150s and temperature 101.9. EKG was sinus tachycardia. He was transferred to the intensive care unit. He was given half liter of IV fluids but previously had received 3.5 L of IV fluid. Ortiz catheter was placed. Blood culture is positive for E. coli and urine cultures gram-negative bacilli. Repeat blood culture ordered for today. Patient has been seen and followed by Dr. Block. Patient is currently on meropenem. Renal ultrasound reveals renal cyst. Largest on the left measuring 3 cm. Minimal ascites adjacent to the liver. No evidence of hydronephrosis. The patient had a total of 3 L urine output yesterday to 30 had 1 L this morning. He was given IV Lasix 40 mg once today and 60 mg yesterday once. Patient states that he is feeling much better from yesterday. His breathing is much more stable and he is flat in bed right now on BiPAP. White count is 9.8, hemoglobin 10.2, creatinine 1.58. Review of Systems Constitutional: Reports fever, Reports weakness Eyes: denies blurred vision, denies bulging eye, denies decreased vision Ears: deny: decreased hearing Ears, nose, mouth and throat: Denies dysphagia, Denies neck lump, Denies sore throat Cardiovascular: Reports high blood pressure, Denies chest pain, Denies decreased exercise tolerance, Denies dyspnea on exertion, Denies phlebitis, Denies rapid heart beat, Denies shortness of breath Respiratory: Denies congestion, Denies cough with sputum, Denies hemoptysis, Denies home oxygen, Denies sleep apnea, Denies snoring, Denies wheezing, complains of shortness of breath, complains of diaphoresis Gastrointestinal: Denies abdominal pain, Denies bloating, Denies BRBPR, Denies heartburn, Denies melena, Denies nausea, Denies vomiting Genitourinary: Reports nocturia, Reports polyuria, Denies dysuria Musculoskeletal: Denies myalgias Musculoskeletal: absent: ankle pain, ankle stiffness, ankle swelling, elbow pain , elbow stiffness, elbow swelling, foot pain, foot stiffness, foot swelling, hand pain, hand stiffness, hand swelling, hip pain, hip stiffness, hip swelling , knee pain, knee stiffness, knee swelling, shoulder pain, shoulder stiffness, shoulder swelling, wrist pain, wrist stiffness, wrist swelling Integumentary: Denies pruritus, Denies rash Neurological: Reports weakness, Denies numbness Psychiatric: Denies anxiety, Denies depression Endocrine: Denies fatigue, Denies weight change Objective - Vital Signs Vital signs: Vital Signs Temp 98.5 F 02/27/18 04:00 Pulse 86 02/27/18 05:00 Resp 19 02/27/18 05:00 BP 105/65 02/27/18 05:00 Pulse Ox 90 L 02/27/18 05:00 Intake & Output 02/26/18 02/27/18 02/27/18 18:59 06:59 18:59 Intake Total 1066 600 75 Output Total 2637 200 Balance 6 -7 -125 Weight 115 kg Intake: IV 600 75 0.9 450 75 Sodium Chloride 0.9% 1, 150 000 ml @ 150 mls/hr IV . [facility] Rx#:[id number] Intake, IV Titration 800 Amount cefTRIAXone 2,000 mg In 800 Sodium Chloride 0.9% 100 ml @ 100 mls/hr IVPB ONCE STA Rx#:[id number] Oral 266 Output: Urine 2637 200 Other: Voiding Method Indwelling Catheter # Voids 3 # Bowel Movements 1 - Exam General appearance: average body habitus, no acute distress while flat in bed on BiPAP - EENT Eyes: anicteric sclerae, EOMI, PERRLA, no ptosis, no scleral icterus, normal appearance ENT: hearing grossly normal, NA/AT, normal oropharynx, no thrush Ears: bilateral: normal - Neck Neck: no lymphadenopathy, normal ROM, no rigidity, no stridor, no thyromegaly Carotids: bilateral: upstroke normal - Respiratory Respiratory: bilateral: diminished, negative: dullness, rales, rhonchi, wheezing , prolonged expiration, prolonged inspiration - Cardiovascular Rhythm: regular Heart sounds: normal: S1, S2 Abnormal Heart Sounds: systolic murmur - Gastrointestinal General gastrointestinal: normal bowel sounds, soft, no splenomegaly, no tenderness, no umbilical hernia, no ventral hernia - Integumentary Integumentary: normal, normal turgor - Neurologic Neurologic: CNII-XII intact - Musculoskeletal Musculoskeletal: generalized weakness, strength equal bilaterally - Psychiatric Psychiatric: A&O x's 3, appropriate affect, intact judgment & insight - Labs CBC & Chem 7: 02/27/18 04:23 02/27/18 04:23 Labs: Abnormal Lab Results - Last 24 Hours (Table) 02/26/18 02/26/18 02/26/18 Range/Units 16:31 21:15 21:18 RBC 3.51 L (4.30-5.90) m/uL Hgb 10.8 L (13.0-17.5) gm/dL Hct 32.7 L (39.0-53.0) % RDW 16.0 H (11.5-15.5) % Neutrophils # (1.3-7.7) k/uL Lymphocytes # (1.0-4.8) k/uL ABG pCO2 (35-45) mmHg ABG pO2 (83-108) mmHg ABG HCO3 (21-25) mmol/L ABG O2 Saturation (94-97) % Chloride (98-107) mmol/L Carbon Dioxide (22-30) mmol/L Creatinine (0.66-1.25) mg/dL Glucose (74-99) mg/dL POC Glucose (mg/dL) 142 H 139 H (75-99) mg/dL Calcium (8.4-10.2) mg/dL AST (17-59) U/L Total Protein (6.3-8.2) g/dL Albumin (3.5-5.0) g/dL 02/26/18 02/26/18 02/26/18 Range/Units 21:18 21:46 21:53 RBC (4.30-5.90) m/uL Hgb (13.0-17.5) gm/dL Hct (39.0-53.0) % RDW (11.5-15.5) % Neutrophils # (1.3-7.7) k/uL Lymphocytes # (1.0-4.8) k/uL ABG pCO2 33 L (35-45) mmHg ABG pO2 248 H (83-108) mmHg ABG HCO3 19 L (21-25) mmol/L ABG O2 Saturation 100.0 H (94-97) % Chloride 109 H (98-107) mmol/L Carbon Dioxide 18 L (22-30) mmol/L Creatinine 1.47 H (0.66-1.25) mg/dL Glucose 143 H (74-99) mg/dL POC Glucose (mg/dL) 143 H (75-99) mg/dL Calcium 8.3 L (8.4-10.2) mg/dL AST 70 H (17-59) U/L Total Protein (6.3-8.2) g/dL Albumin 3.1 L (3.5-5.0) g/dL 02/27/18 02/27/18 Range/Units 04:23 04:23 RBC 3.40 L (4.30-5.90) m/uL Hgb 10.2 L (13.0-17.5) gm/dL Hct 32.1 L (39.0-53.0) % RDW 16.3 H (11.5-15.5) % Neutrophils # 8.6 H (1.3-7.7) k/uL Lymphocytes # 0.6 L (1.0-4.8) k/uL ABG pCO2 (35-45) mmHg ABG pO2 (83-108) mmHg ABG HCO3 (21-25) mmol/L ABG O2 Saturation (94-97) % Chloride (98-107) mmol/L Carbon Dioxide (22-30) mmol/L Creatinine 1.58 H (0.66-1.25) mg/dL Glucose 136 H (74-99) mg/dL POC Glucose (mg/dL) (75-99) mg/dL Calcium 8.2 L (8.4-10.2) mg/dL AST 69 H (17-59) U/L Total Protein 5.9 L (6.3-8.2) g/dL Albumin 2.9 L (3.5-5.0) g/dL Microbiology - Last 24 Hours (Table) 02/25/18 15:30 Urine Culture - Preliminary Urine,Voided Gram Neg Bacilli 02/25/18 15:14 Blood Culture Gram Stain - Preliminary Blood Blood Culture - Preliminary Escherichia coli 02/25/18 15:14 Blood Culture - Final Blood Assessment and Plan Plan: 1. E. coli UTI with E. coli sepsis and septic shock. Continue IV fluid, continue IV antibiotic in the form of meropenem, urine culture, blood culture, ID consultation. 2. 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 Continue Myrbetriq 50 mg daily. 3. Diabetes mellitus type 2, insulin requiring. Continue Janumet daily. 4. Hypertension. Continue lisinopril 5 mg at bedtime, Lopressor 25 mg twice daily. 5. CAD status post CABG. Continue Lopressor 25 mg orally twice every day, continue patient on Lipitor 10 mg orally once every day. 6. Status post aortic valve replacement. Stable. 7. Hyperlipidemia. Continue Lipitor 10 mg at bedtime. 8. Acute kidney injury. Hold torsemide and lisinopril because of the low blood pressure, monitor the patient very closely, continue IV fluid resuscitation, repeat labs in the morning. 9. Anemia. Probably chronic. Monitor CBC. 10. Gastrointestinal prophylaxis. Continue Protonix 40 mg orally once every day. 11. DVT prophylaxis. ANGELINA belle and SCDs. 12. Patient is full code. Discharge plan: To be determined Impression and plan of care have been directed as dictated by the signing physician. Amrita Núñez nurse practitioner acting as scribe for signing physician.
[2018-02-27 17:28] LABS: Glucose,Whole Blood 146 mg/dL (75-99)
[2018-02-27] MEDS: metFORMIN 500 MG TAB PO SCH (20:17)
[2018-02-27] MEDS: LISINOPRIL 5 MG TAB PO SCH (20:17)
[2018-02-27] MEDS: CALCIUM CARB-VIT D 500MG-200UN 1 EACH TAB PO SCH (20:17)
[2018-02-27] MEDS: ATORVASTATIN 10 MG TAB PO SCH (20:17)
[2018-02-27] MEDS: LINAGLIPTIN 5 MG TABLET PO SCH (20:17)
[2018-02-27 21:13] LABS: Glucose,Whole Blood 147 mg/dL (75-99)
--- NOTE | 2018-02-27 23:06 | PN ---
PROGRESS NOTE DATE OF SERVICE: 02/27/2018. REASON FOR FOLLOWUP: ESBL E coli bacteremia and UTI. INTERVAL HISTORY: The patient is afebrile, has been transferred down to the ICU because of the shortness of breath with bacteremia. The patient denies having any chest pain or shortness of breath. Occasional cough. No abdominal pain. No nausea, vomiting or diarrhea. EXAMINATION: Blood pressure is 130/67 with a pulse of 84, temperature 98.1. He is 92% on room air. General description is an elderly male lying in bed in no distress. HEENT examination: Pallor, no scleral icterus. Lungs unlabored breathing with decreased breath sounds in the base, with no wheeze. Heart S1, S2. Regular rate and rhythm. ABDOMEN: Soft, no tenderness. LABS: Hemoglobin 10.8, white count 9.8 with a BUN of 19, creatinine 1.58. Blood and urine has been finalized with ESBL E coli. DIAGNOSTIC IMPRESSION AND PLAN: Patient with ESBL coli bacteremia secondary to urinary source with sepsis. The patient has been on IV meropenem that will be continued at this point. Ultrasound of the kidneys was negative for any structural abnormality. We will repeat blood cultures x1 to document clearance of bacteremia. The patient likely will need a midline and outpatient antibiotic on discharge for which he has ESBL E coli bacteremia and urinary tract infection. Continue supportive care. MMODL / IJN: [id number] /
[2018-02-28 04:49] LABS: Anisocytosis Slight; HCT 32.3 % (39.0-53.0); HGB 10.5 gm/dL (13.0-17.5); MCH 30.3 pg (25.0-35.0); MCHC 32.6 g/dL (31.0-37.0); MCV 92.8 fL (80.0-100.0); Mean Platelet Volume 7.6; Platelet Count 181 k/uL (150-450); RBC 3.48 m/uL (4.30-5.90); RDW 16.2 % (11.5-15.5)
[2018-02-28 04:58] LABS: Calcium 8.1 mg/dL (8.4-10.2); Potassium 3.7 mmol/L (3.5-5.1)
[2018-02-28] MEDS ORDERED: Potassium Replacement Protocol 1 EACH MISC MISCELLANE PRN ×2 (05:41→22:26)
[2018-02-28] MEDS ORDERED: POTASSIUM CHLORIDE ER 20 MEQ TAB.ER PO SCH ×2 (06:00→15:00)
[2018-02-28] MEDS: PANTOPRAZOLE 40 MG TABLET PO SCH ×2 (06:54→17:59)
[2018-02-28] MEDS: SUCRALFATE 1 GM TAB PO SCH ×2 (06:54→17:59)
[2018-02-28 06:55] LABS: Glucose,Whole Blood 138 mg/dL (75-99)
[2018-02-28] MEDS: INSULIN ASPART 100 UNIT/ML 1 ML 10 ML VIAL SQ SCH ×4 (06:56→22:34)
[2018-02-28] MEDS: MEROPENEM 1 GM in SODIUM CHLORIDE 0.9% 100 ML IVPB SCH ×2 (09:21→20:30)
[2018-02-28] MEDS: METOPROLOL TARTRATE 25 MG TAB PO SCH ×2 (09:22→20:29)
[2018-02-28] MEDS: DULoxetine HCL 30 MG CAPSULE.DR PO SCH (09:22)
[2018-02-28] MEDS: ENOXAPARIN 40 MG/0.4 ML SYRINGE SQ SCH (09:22)
[2018-02-28] MEDS: ALLOPURINOL 300 MG TAB PO SCH (09:23)
[2018-02-28] MEDS: TAMSULOSIN 0.4 MG CAP.ER.24H PO SCH (09:23)
[2018-02-28] MEDS: DOCUSATE 100 MG CAP PO SCH ×3 (09:23→20:29)
[2018-02-28] MEDS: PATIENT'S OWN (Mirabegron [Myrbetriq] 50 MG) PO SCH (09:30)
[2018-02-28] MEDS ORDERED: FUROSEMIDE 10 MG/ML 4 ML VIAL IV STA (10:35)
[2018-02-28] MEDS: SODIUM CHLORIDE 0.9% 1,000 ML IV SCH ×2 (10:49→12:54)
--- NOTE | 2018-02-28 11:43 | XR ---
EXAMINATION TYPE: XR chest 1V portable DATE OF EXAM: 02/28/2018 COMPARISON: 02/26/2018 INDICATION: Short of breath CHF TECHNIQUE: Single frontal view of the chest is obtained. FINDINGS: The heart size is normal. The pulmonary vasculature is normal. There is opacification through the right lung. Few air bronchograms are present. Correlate for pneumo agapito. This opacification is an unexpected change from 02/26/2018. Sternotomy wires are in the midline. EKG leads overlie the chest. IMPRESSION: 1. Clinical consideration for right lung pneumonia is recommended. Follow-up is recommended. A Yellow level critical message alert has been initiated for Can Mendoza via the [employer] tical Results System on 02/28/2018 11:40 AM. This message alert has been sent to Can Mendoza via the preferences provided by the clinician for the receipt of Radiology Critical Findings. Message ID [id number].
[2018-02-28 11:57] LABS: Glucose,Whole Blood 122 mg/dL (75-99)
[2018-02-28] MEDS: FERROUS SULFATE 325 MG TAB PO SCH ×2 (12:54→13:04)
[2018-02-28] MEDS: MULTIVITAMINS, THERA 1 EACH TAB PO SCH (12:54)
--- NOTE | 2018-02-28 13:26 | P.PN ---
Subjective Progress Note Date: 02/28/18 Principal diagnosis: Acute sepsis secondary to acute urinary tract infection secondary to ESBL E. coli. This is an 82-year-old white male with history of multiple medical problems including coronary artery disease and previous CABG 3, previous aortic valve replacement, type 2 diabetes, hypertension, prostate cancer status post radiation therapy, and recurrent urinary tract infections. Patient presented to the ER last night complaining of few days' history of generalized weakness, not feeling well, also complaining of chills, upon evaluation in the ER, patient was noted to have leukocytosis, and evidence of urinary tract infection. Patient was admitted, placed empirically on antibiotics, he is now on Merrem as recommended by the infectious disease physician on the case, and his blood cultures came back positive for E. coli, urine cultures came back positive for E. coli. Patient received fluid boluses, and his chest x-ray went on to show evidence of interstitial edema. He did not require any pressors, presently on diuretics for what seems to be interstitial edema. This could be cardiogenic or noncardiogenic in nature at this point. Patient is requiring to be on BiPAP, he is on 50% FiO2, IPAP of 12 and EPAP of 6. Presently in the ICU on BiPAP. Patient was reevaluated today in the ICU, hemodynamically stable, remains on high flow oxygen at 80% FiO2, and 65 L/m using airvo. Chest x-ray is showing worsening edema, possibility of pneumonia is not entirely ruled out, but the findings are mostly findings of right sided pulmonary edema./Unilateral. Patient remains on Merrem as per infectious disease on the case. Remains short of breath, diffuse rhonchi and wheezes noted bilaterally especially on the right side. WBC count is 9 hemoglobin is 10.5, electrolytes are normal, BUN is 18 and creatinine is improved to 1.33 today. Considering his lung findings and his symptoms, I will go ahead and recommend dose of Lasix which was given, I have also recommended adding Solu-Medrol. And I will maintain the patient on Lasix at 40 mg IV push every 12 hours. In the meantime patient will remain on high flow oxygen. Objective - Vital Signs Vital signs: Vital Signs Temp 98.7 F 02/28/18 12:00 Pulse 90 02/28/18 12:00 Resp 32 H 02/28/18 12:00 BP 116/79 02/28/18 12:00 Pulse Ox 91 L 02/28/18 12:45 Intake & Output 02/27/18 02/28/18 02/28/18 18:59 06:59 18:59 Intake Total 975 600 360 Output Total 2865 785 1790 Balance -1892 -185 -7240 Intake: IV 975 600 360 0.9 Normal Saline 675 600 200 Magnesium Sulfate-D5w Pmx 200 1 gm In Dextrose/Water 1 100ml.bag @ 100 mls/hr IVPB Q1H [facility] Rx#: [id number] Meropenem 1 gm In Sodium 100 100 Chloride 0.9% 100 ml @ 200 mls/hr IVPB Q8HR [facility] Rx#:[id number] Sodium Chloride 0.9% 1, 60 000 ml @ 20 mls/hr IV . Q24H [facility] Rx#:[id number] Output: Urine 2865 785 1790 Other: Voiding Method Indwelling Catheter Indwelling Catheter Indwelling Catheter # Bowel Movements 1 1 - Exam General appearance: Revealed an 82-year-old white male, obese, in mild distress , on high flow O2 via airvo Head exam: atraumatic, normocephalic, Eye exam: normal appearance, PERRL, EOMI. Absent: scleral icterus, conjunctival injection, periorbital swelling ENT exam: normal exam, mucous membranes moist Neck exam: normal inspection. Absent: tenderness, meningismus, lymphadenopathy Respiratory exam: Diminished breath sounds at the bases, crackles noted, bilaterally, wheezing noted, right more so than left. Cardiovascular Exam: normal rhythm, tachycardia, normal heart sounds. Absent: systolic murmur, diastolic murmur, rubs, gallop, clicks GI/Abdominal exam: Obese, soft, normal bowel sounds. Negative rebound, guarding , positive bowel sounds Extremities exam: normal inspection, full ROM, normal capillary refill. Absent : tenderness, pedal edema, joint swelling, calf tenderness Back exam: normal inspection Neurological exam: alert, oriented X3, CN II-XII intact Psychiatric exam: normal affect, normal mood Skin exam: Present: warm, dry, intact, normal color. No evidence of erythema or rashes. - Labs CBC & Chem 7: 02/28/18 04:22 02/28/18 04:22 Labs: Abnormal Lab Results - Last 24 Hours (Table) 12/01/0502/27/18 02/28/18 Range/Units 17:17 21:01 04:22 RBC (4.30-5.90) m/uL Hgb (13.0-17.5) gm/dL Hct (39.0-53.0) % RDW (11.5-15.5) % Sodium 136 L (137-145) mmol/L Creatinine 1.33 H (0.66-1.25) mg/dL Glucose 126 H (74-99) mg/dL POC Glucose (mg/dL) 146 H 147 H (75-99) mg/dL Calcium 8.1 L (8.4-10.2) mg/dL 02/28/18 02/28/18 02/28/18 Range/Units 04:22 06:43 11:45 RBC 3.48 L (4.30-5.90) m/uL Hgb 10.5 L (13.0-17.5) gm/dL Hct 32.3 L (39.0-53.0) % RDW 16.2 H (11.5-15.5) % Sodium (137-145) mmol/L Creatinine (0.66-1.25) mg/dL Glucose (74-99) mg/dL POC Glucose (mg/dL) 138 H 122 H (75-99) mg/dL Calcium (8.4-10.2) mg/dL Microbiology - Last 24 Hours (Table) 02/25/18 15:14 Blood Culture Gram Stain - Final Blood Blood Culture - Final Escherichia coli 02/27/18 09:52 Blood Culture - Preliminary Blood No Growth after 24 hours 02/25/18 15:30 Urine Culture - Final Urine,Voided Escherichia coli Assessment and Plan Assessment: Impression: 1 acute sepsis secondary to acute urinary tract infection secondary to E. coli. ESBL, patient is now on Merrem. Agree with the infectious disease consultation and treatment. 2 possibility of pyelonephritis is being considered, however ultrasound is nondiagnostic. 3 acute kidney injury secondary to sepsis. Improved today compared to the day of presentation. 4 suspect some component of pulmonary edema and systolic dysfunction, however the possibility of noncardiogenic pulmonary edema is not entirely ruled out. Continue antibiotics, and steroids, and edited diuretics. 5 history of obstructive sleep apnea normally on BiPAP at home. 6 acute hypoxic respiratory failure secondary to sepsis, pulmonary edema, possible pneumonia. 7 history of multiple comorbidities including prostate cancer, previous radiation and previous radiation cystitis, hypertension, type 2 diabetes, previous CABG, and previous aortic valve replacement. History of hyperlipidemia , history of obstructive sleep apnea syndrome. Recommendation: Continue to monitor in the ICU, continue antibiotics, bronchodilators, steroids, diuretics, high flow oxygen, will follow closely. Discussed his condition with him and his at bedside. Time with Patient: Less than 30
--- NOTE | 2018-02-28 14:05 | P.PN ---
Subjective Progress Note Date: 02/28/18 This is an 82-year-old male patient of Dr. Self with past medical history significant for prostate cancer status post radiation therapy, coronary artery disease status post 3 vessel CABG and aortic valve replacement, diabetes mellitus type 2 insulin requiring, hypertension, hyperlipidemia. Patient came into the emergency department at [facility] yesterday because of generalized weakness and not feeling well, patient stated that he woke up on Tuesday and he had chills and went to bed for the next 2 days and did not do much, then tried to get out of bed when he slid down and could not get up so his called EMS and was brought to the ER he was evaluated in the ER and he was found to have a mild leukocytosis and a UTI for which she was admitted to the hospital for IV fluid resuscitation as well as IV antibiotic and urine culture and blood culture were sent, ID consultation was obtained from . 02/27: During the night, T-Team was called because patient's pulse ox dropped to 70s, he was diaphoretic and feeling short of breath with heart rate in the 150s and temperature 101.9. EKG was sinus tachycardia. He was transferred to the intensive care unit. He was given half liter of IV fluids but previously had received 3.5 L of IV fluid. Ortiz catheter was placed. Blood culture is positive for E. coli and urine cultures gram-negative bacilli. Repeat blood culture ordered for today. Patient has been seen and followed by Dr. Block. Patient is currently on meropenem. Renal ultrasound reveals renal cyst. Largest on the left measuring 3 cm. Minimal ascites adjacent to the liver. No evidence of hydronephrosis. The patient had a total of 3 L urine output yesterday to 30 had 1 L this morning. He was given IV Lasix 40 mg once today and 60 mg yesterday once. Patient states that he is feeling much better from yesterday. His breathing is much more stable and he is flat in bed right now on BiPAP. White count is 9.8, hemoglobin 10.2, creatinine 1.58. 03/10: Patient is currently on BiPAP with FiO2 of 50% and pulse ox 93%. Vital signs at been stable and afebrile. White count is 9, creatinine 1.33. Repeat blood culture drawn yesterday as it is received. Initial blood and urine culture are positive for ESBL E. coli. Patient is currently on meropenem and followed by Dr. Block. Ortiz catheter remains in place, patient had a bowel movement yesterday. Patient states breathing is better today. He is currently on airflo which she seems to be tolerating and pulse ox is 93%. He did have one and half liters urine output this morning. Midline is scheduled for tomorrow. Patient wishes to be a DO NOT INTUBATE. Review of Systems Constitutional: Reports fever, Reports generalized weakness, Eyes: denies blurred vision, denies bulging eye, denies decreased vision Ears: deny: decreased hearing Ears, nose, mouth and throat: Denies dysphagia, Denies neck lump, Denies sore throat Cardiovascular: Reports high blood pressure, Denies chest pain, Denies decreased exercise tolerance, Denies dyspnea on exertion, Denies phlebitis, Denies rapid heart beat, Denies shortness of breath Respiratory: Denies congestion, Denies cough with sputum, Denies hemoptysis, Denies home oxygen, Denies sleep apnea, Denies snoring, Denies wheezing, complains of shortness of breath, complains of diaphoresis Gastrointestinal: Denies abdominal pain, Denies bloating, Denies BRBPR, Denies heartburn, Denies melena, Denies nausea, Denies vomiting Genitourinary: Reports nocturia, Reports polyuria, Denies dysuria Musculoskeletal: Denies myalgias Musculoskeletal: absent: ankle pain, ankle stiffness, ankle swelling, elbow pain , elbow stiffness, elbow swelling, foot pain, foot stiffness, foot swelling, hand pain, hand stiffness, hand swelling, hip pain, hip stiffness, hip swelling , knee pain, knee stiffness, knee swelling, shoulder pain, shoulder stiffness, shoulder swelling, wrist pain, wrist stiffness, wrist swelling Integumentary: Denies pruritus, Denies rash Neurological: Reports weakness, Denies numbness Psychiatric: Denies anxiety, Denies depression Endocrine: Denies fatigue, Denies weight change Objective - Vital Signs Vital signs: Vital Signs Temp 98.2 F 02/28/18 04:00 Pulse 93 02/28/18 07:00 Resp 20 02/28/18 07:00 BP 104/63 02/28/18 07:00 Pulse Ox 91 L 02/28/18 07:00 Intake & Output 02/27/18 02/28/18 02/28/18 18:59 06:59 18:59 Intake Total 975 600 50 Output Total 2865 785 90 Balance -1890 -185 -40 Intake: IV 975 600 50 0.9 675 600 50 Magnesium Sulfate-D5w Pmx 200 1 gm In Dextrose/Water 1 100ml.bag @ 100 mls/hr IVPB Q1H [facility]MY Rx#: [id number] Meropenem 1 gm In Sodium 100 Chloride 0.9% 100 ml @ 200 mls/hr IVPB Q8HR [facility]MY Rx#:[id number] Output: Urine 2865 785 90 Other: Voiding Method Indwelling Catheter Indwelling Catheter # Bowel Movements 1 - Exam General appearance: average body habitus, no acute distress sitting in bed with airlfo on. - EENT Eyes: anicteric sclerae, EOMI, PERRLA, no ptosis, no scleral icterus, normal appearance ENT: hearing grossly normal, NA/AT, normal oropharynx, no thrush Ears: bilateral: normal - Neck Neck: no lymphadenopathy, normal ROM, no rigidity, no stridor, no thyromegaly Carotids: bilateral: upstroke normal - Respiratory Respiratory: bilateral: diminished, negative: dullness, rales, rhonchi, wheezing , prolonged expiration, prolonged inspiration - Cardiovascular Rhythm: regular Heart sounds: normal: S1, S2 Abnormal Heart Sounds: systolic murmur - Gastrointestinal General gastrointestinal: normal bowel sounds, soft, no splenomegaly, no tenderness, no umbilical hernia, no ventral hernia - Integumentary Integumentary: normal, normal turgor - Neurologic Neurologic: CNII-XII intact - Musculoskeletal Musculoskeletal: generalized weakness, strength equal bilaterally - Psychiatric Psychiatric: A&O x's 3, appropriate affect, intact judgment & insight - Labs CBC & Chem 7: 02/28/18 04:22 02/28/18 04:22 Labs: Abnormal Lab Results - Last 24 Hours (Table) 02/25/18 02/27/18 02/27/18 Range/Units 14:58 12:26 17:17 RBC (4.30-5.90) m/uL Hgb (13.0-17.5) gm/dL Hct (39.0-53.0) % RDW (11.5-15.5) % Sodium (137-145) mmol/L Creatinine (0.66-1.25) mg/dL Glucose (74-99) mg/dL POC Glucose (mg/dL) 172 H 146 H (75-99) mg/dL Hemoglobin A1c 6.4 H (4.0-6.0) % Calcium (8.4-10.2) mg/dL 02/27/18 02/28/18 02/28/18 Range/Units 21:01 04:22 04:22 RBC 3.48 L (4.30-5.90) m/uL Hgb 10.5 L (13.0-17.5) gm/dL Hct 32.3 L (39.0-53.0) % RDW 16.2 H (11.5-15.5) % Sodium 136 L (137-145) mmol/L Creatinine 1.33 H (0.66-1.25) mg/dL Glucose 126 H (74-99) mg/dL POC Glucose (mg/dL) 147 H (75-99) mg/dL Hemoglobin A1c (4.0-6.0) % Calcium 8.1 L (8.4-10.2) mg/dL 02/28/18 Range/Units 06:43 RBC (4.30-5.90) m/uL Hgb (13.0-17.5) gm/dL Hct (39.0-53.0) % RDW (11.5-15.5) % Sodium (137-145) mmol/L Creatinine (0.66-1.25) mg/dL Glucose (74-99) mg/dL POC Glucose (mg/dL) 138 H (75-99) mg/dL Hemoglobin A1c (4.0-6.0) % Calcium (8.4-10.2) mg/dL Microbiology - Last 24 Hours (Table) 02/25/18 15:14 Blood Culture Gram Stain - Final Blood Blood Culture - Final Escherichia coli 02/25/18 15:30 Urine Culture - Final Urine,Voided Escherichia coli Assessment and Plan Plan: 1. ESBL E. coli UTI with E. coli sepsis and septic shock. Continue IV antibiotic in the form of meropenem, urine culture, blood culture as above, consult Dr. Block is appreciated. Midline to be placed tomorrow. 2. Acute hypoxic respiratory failure requiring BiPAP secondary to sepsis, pulmonary edema with possible acute systolic heart failure and possible pneumonia. Patient is currently on airflo, continue Solu-Medrol 40 mg IV every 6 hours, Lasix 40 mg IV every 12 hours 3. Diabetes mellitus type 2, insulin requiring. Continue Janumet daily. 4. Hypertension. Continue lisinopril 5 mg at bedtime, Lopressor 25 mg twice daily. 5. CAD status post CABG. Continue Lopressor 25 mg orally twice every day, continue patient on Lipitor 10 mg orally once every day. 6. Status post aortic valve replacement. Stable. 7. Hyperlipidemia. Continue Lipitor 10 mg at bedtime. 8. Acute kidney injury. Hold torsemide and lisinopril because of the low blood pressure, monitor the patient very closely, continue IV fluid resuscitation, repeat labs in the morning. 9. Anemia. Probably chronic. Monitor CBC. 10. Gastrointestinal prophylaxis. Continue Protonix 40 mg orally once every day. 11. DVT prophylaxis. ANGELINA belle and SCDs. 12. 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 Continue Myrbetriq 50 mg daily. 13. History of obstructive sleep apnea normally on BiPAP at home. CODE STATUS: DO NOT INTUBATE Discharge plan: Most likely return home Impression and plan of care have been directed as dictated by the signing physician. Amrita Núñez nurse practitioner acting as scribe for signing physician.
[2018-02-28] MEDS: methylPREDNISolone SOD SUCCI 40 MG/ML 1 ML VIAL IV SCH ×2 (14:11→17:59)
[2018-02-28 17:18] LABS: Glucose,Whole Blood 139 mg/dL (75-99)
[2018-02-28] MEDS: metFORMIN 500 MG TAB PO SCH (20:29)
[2018-02-28] MEDS: LINAGLIPTIN 5 MG TABLET PO SCH (20:29)
[2018-02-28] MEDS: LISINOPRIL 5 MG TAB PO SCH (20:29)
[2018-02-28] MEDS: CALCIUM CARB-VIT D 500MG-200UN 1 EACH TAB PO SCH (20:29)
[2018-02-28] MEDS: ATORVASTATIN 10 MG TAB PO SCH (20:29)
[2018-02-28] MEDS: FUROSEMIDE 10 MG/ML 4 ML VIAL IV SCH (20:30)
[2018-02-28 20:51] LABS: Glucose,Whole Blood 158 mg/dL (75-99)
--- NOTE | 2018-02-28 22:16 | PN ---
PROGRESS NOTE DATE OF SERVICE: 02/28/2018. REASON FOR FOLLOWUP: ESBL E coli bacteremia secondary to urinary source with sepsis. INTERVAL HISTORY: The patient is afebrile. He seems to be breathing more comfortably. He denies significant chest pain. He continues to have some cough but not bringing up any sputum. No nausea, no vomiting. No abdominal pain. No diarrhea. EXAMINATION: Blood pressure is 111/76, pulse of 94, temperature 98. He is 95% on BiPAP. GENERAL DESCRIPTION: An elderly male lying in bed in no distress. RESPIRATORY SYSTEM: Unlabored breathing. Decreased breath sounds at the bases. No wheeze. HEART: S1, S2. Regular rate and rhythm. ABDOMEN: Soft, no tenderness. LABS: Hemoglobin is 10.5, white count 9.0, BUN of 18, creatinine 1.33. Blood culture repeat 02/2010 has been negative so far. DIAGNOSTIC IMPRESSION AND PLAN: Patient with ESBL E coli bacteremia secondary to urinary source. Ultrasound of the kidneys negative for any structural abnormality. The patient is currently on meropenem 1 g every 12 hours which will be adjusted to his kidney function. We will monitor his kidney function closely. He will get tomorrow. The patient will need outpatient IV antibiotic therapy on discharge. Continue supportive care. MMODL / IJN: [id number] /
[2018-02-28] MEDS: POTASSIUM CHLORIDE 10 MEQ in WATER FOR INJECTION 1 100ML.BAG IVPB SCH (22:35)
[2018-03-01] MEDS: methylPREDNISolone SOD SUCCI 40 MG/ML 1 ML VIAL IV SCH ×4 (00:18→16:33)
[2018-03-01 06:58] LABS: Glucose,Whole Blood 164 mg/dL (75-99)
[2018-03-01 08:58] LABS: Glucose,Whole Blood 161 mg/dL (75-99)
[2018-03-01] MEDS: DULoxetine HCL 30 MG CAPSULE.DR PO SCH (08:58)
[2018-03-01] MEDS: FUROSEMIDE 10 MG/ML 4 ML VIAL IV SCH ×2 (08:58→16:34)
[2018-03-01] MEDS: TAMSULOSIN 0.4 MG CAP.ER.24H PO SCH (08:59)
[2018-03-01] MEDS: DOCUSATE 100 MG CAP PO SCH ×2 (08:59→20:28)
[2018-03-01] MEDS: SUCRALFATE 1 GM TAB PO SCH ×2 (08:59→17:28)
[2018-03-01] MEDS: PANTOPRAZOLE 40 MG TABLET PO SCH ×2 (08:59→17:29)
[2018-03-01] MEDS: METOPROLOL TARTRATE 25 MG TAB PO SCH ×2 (09:01→21:08)
[2018-03-01] MEDS: ENOXAPARIN 40 MG/0.4 ML SYRINGE SQ SCH (09:01)
[2018-03-01] MEDS: INSULIN ASPART 100 UNIT/ML 1 ML 10 ML VIAL SQ SCH ×4 (09:10→21:10)
[2018-03-01 09:19] LABS: Anisocytosis Slight; HCT 33.7 % (39.0-53.0); HGB 11.1 gm/dL (13.0-17.5); MCH 30.5 pg (25.0-35.0); MCHC 32.8 g/dL (31.0-37.0); Mean Platelet Volume 8.3; Platelet Count 213 k/uL (150-450); RBC 3.62 m/uL (4.30-5.90); RDW 16.4 % (11.5-15.5); WBC 8.4 k/uL (3.8-10.6)
[2018-03-01 09:26] LABS: Calcium 8.8 mg/dL (8.4-10.2); Potassium 4.2 mmol/L (3.5-5.1)
[2018-03-01] MEDS: PATIENT'S OWN (Mirabegron [Myrbetriq] 50 MG) PO SCH (09:36)
--- NOTE | 2018-03-01 11:10 | XR ---
EXAMINATION TYPE: XR chest 1V portable DATE OF EXAM: 03/01/2018 COMPARISON: Prior chest x-ray 02/28/2018 HISTORY: Congestive heart failure TECHNIQUE: Single frontal view of the chest is obtained. FINDINGS: There is improved aeration in the right lung as compared to prior exam. No evident pneumot horax. Bibasilar densities persisting. Heart size is stable. IMPRESSION: Improvement in aeration.
--- NOTE | 2018-03-01 11:42 | P.PN ---
Subjective Progress Note Date: 03/01/18 This is an 82-year-old male patient of Dr. Self with past medical history significant for prostate cancer status post radiation therapy, coronary artery disease status post 3 vessel CABG and aortic valve replacement, diabetes mellitus type 2 insulin requiring, hypertension, hyperlipidemia. Patient came into the emergency department at [facility] yesterday because of generalized weakness and not feeling well, patient stated that he woke up on Tuesday and he had chills and went to bed for the next 2 days and did not do much, then tried to get out of bed when he slid down and could not get up so his called EMS and was brought to the ER he was evaluated in the ER and he was found to have a mild leukocytosis and a UTI for which she was admitted to the hospital for IV fluid resuscitation as well as IV antibiotic and urine culture and blood culture were sent, ID consultation was obtained from . 02/27: During the night, T-Team was called because patient's pulse ox dropped to 70s, he was diaphoretic and feeling short of breath with heart rate in the 150s and temperature 101.9. EKG was sinus tachycardia. He was transferred to the intensive care unit. He was given half liter of IV fluids but previously had received 3.5 L of IV fluid. Ortiz catheter was placed. Blood culture is positive for E. coli and urine cultures gram-negative bacilli. Repeat blood culture ordered for today. Patient has been seen and followed by Dr. Block. Patient is currently on meropenem. Renal ultrasound reveals renal cyst. Largest on the left measuring 3 cm. Minimal ascites adjacent to the liver. No evidence of hydronephrosis. The patient had a total of 3 L urine output yesterday to 30 had 1 L this morning. He was given IV Lasix 40 mg once today and 60 mg yesterday once. Patient states that he is feeling much better from yesterday. His breathing is much more stable and he is flat in bed right now on BiPAP. White count is 9.8, hemoglobin 10.2, creatinine 1.58. 02/28: Patient is currently on BiPAP with FiO2 of 50% and pulse ox 93%. Vital signs at been stable and afebrile. White count is 9, creatinine 1.33. Repeat blood culture drawn yesterday as it is received. Initial blood and urine culture are positive for ESBL E. coli. Patient is currently on meropenem and followed by Dr. Block. Ortiz catheter remains in place, patient had a bowel movement yesterday. Patient states breathing is better today. He is currently on airflo which she seems to be tolerating and pulse ox is 93%. He did have one and half liters urine output this morning. Midline is scheduled for tomorrow. Patient wishes to be a DO NOT INTUBATE. 03/01: Patient remains in the intensive care unit currently on high flow nasal cannula pulse oxing 91 and 94%. Patient states that he is feeling better each day. Extremity edema is decreased. He has Ortiz remains in place with good urine output. He is currently on Lasix 40 mg every 12 hours IV. He did have a bowel movement this morning. Patient has not been out of bed since admission. PT and OT on. Case management has met with patient for planned for discharge to [facility]. Plan is to increase oral diet, increase activity. White count is normal, hemoglobin 11.1, creatinine 1.10. Blood sugars are running in the 150s and 160s. Repeat chest x-ray showing improvement in aeration. Patient is scheduled for midline placement and is currently on meropenem. Review of Systems Constitutional: Reports fever, Reports generalized weakness, reports fatigue Eyes: denies blurred vision, denies bulging eye, denies decreased vision Ears: deny: decreased hearing Ears, nose, mouth and throat: Denies dysphagia, Denies neck lump, Denies sore throat Cardiovascular: Reports high blood pressure, Denies chest pain, Denies decreased exercise tolerance, Denies dyspnea on exertion, Denies phlebitis, Denies rapid heart beat, Denies shortness of breath Respiratory: Denies congestion, Denies cough with sputum, Denies hemoptysis, Denies home oxygen, Denies sleep apnea, Denies snoring, Denies wheezing, complains of shortness of breath, complains of diaphoresis Gastrointestinal: Denies abdominal pain, Denies bloating, Denies BRBPR, Denies heartburn, Denies melena, Denies nausea, Denies vomiting Genitourinary: Reports nocturia, Reports polyuria, Denies dysuria Musculoskeletal: Denies myalgias Musculoskeletal: absent: ankle pain, ankle stiffness, ankle swelling, elbow pain , elbow stiffness, elbow swelling, foot pain, foot stiffness, foot swelling, hand pain, hand stiffness, hand swelling, hip pain, hip stiffness, hip swelling , knee pain, knee stiffness, knee swelling, shoulder pain, shoulder stiffness, shoulder swelling, wrist pain, wrist stiffness, wrist swelling Integumentary: Denies pruritus, Denies rash Neurological: Reports weakness, Denies numbness Psychiatric: Denies anxiety, Denies depression Endocrine: Denies fatigue, Denies weight change Objective - Vital Signs Vital signs: Vital Signs Temp 97.2 F L 03/01/18 00:00 Pulse 75 03/01/18 07:00 Resp 20 03/01/18 07:00 BP 109/72 03/01/18 07:00 Pulse Ox 92 L 03/01/18 07:00 Intake & Output 02/28/18 03/01/18 03/01/18 18:59 06:59 18:59 Intake Total 460 240 60 Output Total 2890 1790 200 Balance -2430 -1550 -140 Weight 114.5 kg 116.3 kg Intake: IV 460 240 60 0.9 Normal Saline 200 Meropenem 1 gm In Sodium 100 Chloride 0.9% 100 ml @ 200 mls/hr IVPB Q8HR [facility] Rx#:[id number] Sodium Chloride 0.9% 1, 160 240 60 000 ml @ 20 mls/hr IV . Q24H [facility] Rx#:[id number] Output: Urine 2890 1790 200 Other: Voiding Method Indwelling Catheter Indwelling Catheter # Bowel Movements 1 - Exam General appearance: average body habitus, no acute distress sitting in bed, generalized weakness noted - EENT Eyes: anicteric sclerae, EOMI, PERRLA, no ptosis, no scleral icterus, normal appearance ENT: hearing grossly normal, NA/AT, normal oropharynx, no thrush Ears: bilateral: normal - Neck Neck: no lymphadenopathy, normal ROM, no rigidity, no stridor, no thyromegaly Carotids: bilateral: upstroke normal - Respiratory Respiratory: bilateral: diminished, negative: dullness, rales, rhonchi, wheezing , prolonged expiration, prolonged inspiration - Cardiovascular Rhythm: regular Heart sounds: normal: S1, S2 Abnormal Heart Sounds: systolic murmur - Gastrointestinal General gastrointestinal: normal bowel sounds, soft, no splenomegaly, no tenderness, no umbilical hernia, no ventral hernia - Integumentary Integumentary: normal, normal turgor - Neurologic Neurologic: CNII-XII intact - Musculoskeletal Musculoskeletal: generalized weakness, strength equal bilaterally - Psychiatric Psychiatric: A&O x's 3, appropriate affect, intact judgment & insight - Labs CBC & Chem 7: 03/01/18 08:42 03/01/18 08:42 Labs: Abnormal Lab Results - Last 24 Hours (Table) 02/28/18 02/28/18 02/28/18 Range/Units 11:45 17:05 20:39 RBC (4.30-5.90) m/uL Hgb (13.0-17.5) gm/dL Hct (39.0-53.0) % RDW (11.5-15.5) % BUN (9-20) mg/dL Glucose (74-99) mg/dL POC Glucose (mg/dL) 122 H 139 H 158 H (75-99) mg/dL 03/01/18 03/01/18 03/01/18 Range/Units 06:46 08:42 08:42 RBC 3.62 L (4.30-5.90) m/uL Hgb 11.1 L (13.0-17.5) gm/dL Hct 33.7 L (39.0-53.0) % RDW 16.4 H (11.5-15.5) % BUN 23 H (9-20) mg/dL Glucose 166 H (74-99) mg/dL POC Glucose (mg/dL) 164 H (75-99) mg/dL 03/01/18 Range/Units 08:46 RBC (4.30-5.90) m/uL Hgb (13.0-17.5) gm/dL Hct (39.0-53.0) % RDW (11.5-15.5) % BUN (9-20) mg/dL Glucose (74-99) mg/dL POC Glucose (mg/dL) 161 H (75-99) mg/dL Microbiology - Last 24 Hours (Table) 02/28/18 04:22 Blood Culture - Preliminary Blood No Growth after 24 hours 02/25/18 15:14 Blood Culture Gram Stain - Final Blood Blood Culture - Final Escherichia coli 02/27/18 09:52 Blood Culture - Preliminary Blood No Growth after 24 hours Assessment and Plan Plan: 1. ESBL E. coli UTI with E. coli sepsis and septic shock. Continue IV antibiotic in the form of meropenem, urine culture, blood culture as above, consult Dr. Block is appreciated. Midline to be placed. 2. Acute hypoxic respiratory failure requiring BiPAP secondary to sepsis, pulmonary edema with possible acute systolic heart failure and possible pneumonia. Patient is currently on high flow nasal cannula, continue Solu- Medrol 40 mg IV every 6 hours, Lasix 40 mg IV every 12 hours, daily weights and I&O 3. Diabetes mellitus type 2, insulin requiring. Continue Janumet daily. 4. Hypertension. Continue lisinopril 5 mg at bedtime, off Lopressor. 5. CAD status post CABG. Continue Lipitor 10 mg orally once every day. 6. Status post aortic valve replacement. Stable. 7. Hyperlipidemia. Continue Lipitor 10 mg at bedtime. 8. Acute kidney injury. repeat labs in the morning. 9. Anemia. Probably chronic. Monitor CBC. 10. Gastrointestinal prophylaxis. Continue Protonix 40 mg orally once every day. 11. DVT prophylaxis. ANGELINA belle and SCDs. 12. 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 Continue Myrbetriq 50 mg daily. 13. History of obstructive sleep apnea normally on BiPAP at home. CODE STATUS: DO NOT INTUBATE Discharge plan: [place] most likely on Tuesday Impression and plan of care have been directed as dictated by the signing physician. Amrita Núñez nurse practitioner acting as scribe for signing physician.
[2018-03-01 12:15] LABS: Glucose,Whole Blood 167 mg/dL (75-99)
--- NOTE | 2018-03-01 12:30 | P.PN ---
Subjective Progress Note Date: 03/01/18 Principal diagnosis: Acute sepsis secondary to acute urinary tract infection secondary to ESBL E. coli. This is an 82-year-old white male with history of multiple medical problems including coronary artery disease and previous CABG 3, previous aortic valve replacement, type 2 diabetes, hypertension, prostate cancer status post radiation therapy, and recurrent urinary tract infections. Patient presented to the ER last night complaining of few days' history of generalized weakness, not feeling well, also complaining of chills, upon evaluation in the ER, patient was noted to have leukocytosis, and evidence of urinary tract infection. Patient was admitted, placed empirically on antibiotics, he is now on Merrem as recommended by the infectious disease physician on the case, and his blood cultures came back positive for E. coli, urine cultures came back positive for E. coli. Patient received fluid boluses, and his chest x-ray went on to show evidence of interstitial edema. He did not require any pressors, presently on diuretics for what seems to be interstitial edema. This could be cardiogenic or noncardiogenic in nature at this point. Patient is requiring to be on BiPAP, he is on 50% FiO2, IPAP of 12 and EPAP of 6. Presently in the ICU on BiPAP. Patient was reevaluated today in the ICU, hemodynamically stable, remains on high flow oxygen at 80% FiO2, and 65 L/m using airvo. Chest x-ray is showing worsening edema, possibility of pneumonia is not entirely ruled out, but the findings are mostly findings of right sided pulmonary edema./Unilateral. Patient remains on Merrem as per infectious disease on the case. Remains short of breath, diffuse rhonchi and wheezes noted bilaterally especially on the right side. WBC count is 9 hemoglobin is 10.5, electrolytes are normal, BUN is 18 and creatinine is improved to 1.33 today. Considering his lung findings and his symptoms, I will go ahead and recommend dose of Lasix which was given, I have also recommended adding Solu-Medrol. And I will maintain the patient on Lasix at 40 mg IV push every 12 hours. In the meantime patient will remain on high flow oxygen. On 03/01/2018, patient remains in the intensive care unit, we were able to get him down to 15 L nasal cannula high flow, saturating around 93%. Chest x-ray is showing significant improvement with diuretics, and I increased his Lasix from 40 mg every 12 hours to 40 mg every 8 hours. His proBNP level was significantly elevated, and again the findings are findings of pulmonary edema rather than pneumonia. And it is likely cardiogenic in nature rather than noncardiogenic since the patient had a significant improvement with diuresis basically speaking overnight. Follow-up blood cultures have been negative initial blood cultures were positive for E. coli/ESBL. CBC is relatively normal today. Electrolytes are normal BUN is 23 creatinine is significantly improved down to 1.1, it was as high as 1.62 on presentation. Objective - Vital Signs Vital signs: Vital Signs Temp 98.0 F 03/01/18 08:00 Pulse 69 03/01/18 11:00 Resp 19 03/01/18 11:00 BP 103/67 03/01/18 11:00 Pulse Ox 91 L 03/01/18 11:00 Intake & Output 02/28/18 03/01/18 03/01/18 18:59 06:59 18:59 Intake Total 460 240 100 Output Total 2890 1790 900 Balance -2430 -1550 -800 Weight 114.5 kg 116.3 kg Intake: IV 460 240 100 0.9 Normal Saline 200 Meropenem 1 gm In Sodium 100 Chloride 0.9% 100 ml @ 200 mls/hr IVPB Q8HR [facility] Rx#:[id number] Sodium Chloride 0.9% 1, 160 240 100 000 ml @ 20 mls/hr IV . Q24H [facility] Rx#:[id number] Output: Urine 2890 1790 900 Other: Voiding Method Indwelling Catheter Indwelling Catheter Indwelling Catheter # Bowel Movements 1 - Exam General appearance: Revealed an 82-year-old white male, obese, in mild distress , on 15 L high flow nasal cannula. Head exam: atraumatic, normocephalic, Eye exam: normal appearance, PERRL, EOMI. Absent: scleral icterus, conjunctival injection, periorbital swelling ENT exam: normal exam, mucous membranes moist Neck exam: normal inspection. Absent: tenderness, meningismus, lymphadenopathy Respiratory exam: Diminished breath bilaterally, crackles noted, bilaterally, wheezing noted, right more so than left. Cardiovascular Exam: normal rhythm, tachycardia, normal heart sounds. Absent: systolic murmur, diastolic murmur, rubs, gallop, clicks GI/Abdominal exam: Obese, soft, normal bowel sounds. Negative rebound, guarding , positive bowel sounds Extremities exam: normal inspection, full ROM, normal capillary refill. Absent : tenderness, pedal edema, joint swelling, calf tenderness Back exam: normal inspection Neurological exam: alert, oriented X3, CN II-XII intact Psychiatric exam: normal affect, normal mood Skin exam: Present: warm, dry, intact, normal color. No evidence of erythema or rashes. - Labs CBC & Chem 7: 03/01/18 08:42 03/01/18 08:42 Labs: Abnormal Lab Results - Last 24 Hours (Table) 02/28/18 02/28/18 03/01/18 Range/Units 17:05 20:39 06:46 RBC (4.30-5.90) m/uL Hgb (13.0-17.5) gm/dL Hct (39.0-53.0) % RDW (11.5-15.5) % BUN (9-20) mg/dL Glucose (74-99) mg/dL POC Glucose (mg/dL) 139 H 158 H 164 H (75-99) mg/dL 03/01/18 03/01/18 03/01/18 Range/Units 08:42 08:42 08:46 RBC 3.62 L (4.30-5.90) m/uL Hgb 11.1 L (13.0-17.5) gm/dL Hct 33.7 L (39.0-53.0) % RDW 16.4 H (11.5-15.5) % BUN 23 H (9-20) mg/dL Glucose 166 H (74-99) mg/dL POC Glucose (mg/dL) 161 H (75-99) mg/dL 03/01/18 Range/Units 12:04 RBC (4.30-5.90) m/uL Hgb (13.0-17.5) gm/dL Hct (39.0-53.0) % RDW (11.5-15.5) % BUN (9-20) mg/dL Glucose (74-99) mg/dL POC Glucose (mg/dL) 167 H (75-99) mg/dL Microbiology - Last 24 Hours (Table) 02/27/18 09:52 Blood Culture - Preliminary Blood No Growth after 48 hours 02/28/18 04:22 Blood Culture - Preliminary Blood No Growth after 24 hours 02/25/18 15:14 Blood Culture Gram Stain - Final Blood Blood Culture - Final Escherichia coli Assessment and Plan Assessment: Impression: 1 acute sepsis secondary to acute urinary tract infection secondary to E. coli. ESBL, patient is now on Merrem. 2 possibility of pyelonephritis is being considered, however it was ruled out. 3 acute kidney injury secondary to sepsis. Improving steadily since admission, creatinine is 1.1 today. 4 suspect some component of pulmonary edema and systolic dysfunction, however the possibility of noncardiogenic pulmonary edema is not entirely ruled out. Continue antibiotics, and steroids, and edited diuretics. 5 history of obstructive sleep apnea normally on BiPAP at home. 6 acute hypoxic respiratory failure secondary to sepsis, pulmonary edema secondary to diastolic congestive heart failure, no echocardiogram available, I will go ahead and proceed with an echocardiogram request. 7 history of multiple comorbidities including prostate cancer, previous radiation and previous radiation cystitis, hypertension, type 2 diabetes, previous CABG, and previous aortic valve replacement. History of hyperlipidemia, history of obstructive sleep apnea syndrome. Recommendation: Continue to monitor in the ICU, continue antibiotics, bronchodilators, steroids, diuretics, high flow oxygen, increase Lasix to 40 mg IV push every 12 hours, chest x-ray was reviewed and clearly significantly better compared to the chest x-ray done yesterday. Again his BNP level was significantly elevated, and the patient responded quite well to Lasix. Echocardiogram will be requested. Patient will remain in the ICU for now. Time with Patient: Less than 30
[2018-03-01] MEDS: POTASSIUM CHLORIDE 10 MEQ in WATER FOR INJECTION 1 100ML.BAG IVPB SCH (12:32)
[2018-03-01] MEDS: FERROUS SULFATE 325 MG TAB PO SCH (12:36)
[2018-03-01] MEDS: MULTIVITAMINS, THERA 1 EACH TAB PO SCH (12:36)
[2018-03-01] MEDS: SODIUM CHLORIDE 0.9% 1,000 ML IV SCH (16:31)
[2018-03-01] MEDS: MEROPENEM 1 GM in SODIUM CHLORIDE 0.9% 100 ML IVPB SCH ×2 (16:33→21:11)
[2018-03-01 17:26] LABS: Glucose,Whole Blood 163 mg/dL (75-99)
--- NOTE | 2018-03-01 17:32 | PN ---
PROGRESS NOTE DATE OF SERVICE: 03/01/2018. REASON FOR FOLLOWUP: ESBL E coli bacteremia secondary to urinary source. INTERVAL HISTORY: The patient is afebrile. He is breathing comfortably. Denies having any chest pain. He did have some cough but not bringing any sputum. No nausea, no vomiting. No abdominal pain. No diarrhea. EXAMINATION: Blood pressure is 110/66, pulse of 75, temperature of 98. He is 95% on high-flow oxygen. General description is an elderly male lying in bed in no distress. Respiratory system: Unlabored breathing, clear to auscultation anteriorly. Heart S1, S2. Regular rate and rhythm. Abdomen soft, no tenderness. LABS: Hemoglobin is 11.1, white count 8.4, BUN of 23, creatinine is 1.10. Blood culture repeat 02/27 has been negative. DIAGNOSTIC IMPRESSION AND PLAN: Patient with ESBL E coli bacteremia secondary to urinary source, ultrasound of the kidney was negative for any acute abnormality. In view of improvement in his kidney function, his meropenem dose to be adjusted up to 1 g q.8 hours. He did get a midline with a plan to finish therapy with IV Invanz. Total duration of antibiotics should be at least 2 weeks. Continue supportive care. MMODL / IJN: [id number] /
[2018-03-01] MEDS: CALCIUM CARB-VIT D 500MG-200UN 1 EACH TAB PO SCH (21:08)
[2018-03-01] MEDS: metFORMIN 500 MG TAB PO SCH (21:08)
[2018-03-01] MEDS: LINAGLIPTIN 5 MG TABLET PO SCH (21:08)
[2018-03-01] MEDS: ATORVASTATIN 10 MG TAB PO SCH (21:09)
[2018-03-01 21:10] LABS: Glucose,Whole Blood 198 mg/dL (75-99)
[2018-03-01] MEDS: LISINOPRIL 5 MG TAB PO SCH (21:17)
[2018-03-02] MEDS: methylPREDNISolone SOD SUCCI 40 MG/ML 1 ML VIAL IV SCH ×4 (00:22→18:41)
[2018-03-02] MEDS: FUROSEMIDE 10 MG/ML 4 ML VIAL IV SCH ×3 (00:22→22:00)
[2018-03-02] MEDS: MEROPENEM 1 GM in SODIUM CHLORIDE 0.9% 100 ML IVPB SCH ×3 (05:20→22:23)
[2018-03-02 05:31] LABS: Anisocytosis Slight; Basophils % (A) 0 %; Eosinophils % (A) 0 %; HCT 32.3 % (39.0-53.0); HGB 10.5 gm/dL (13.0-17.5); Lymphocytes # (A) 0.6 k/uL (1.0-4.8); Lymphocytes % (A) 5 %; MCHC 32.4 g/dL (31.0-37.0); MCV 92.7 fL (80.0-100.0); Mean Platelet Volume 8.1; Monocytes # (A) 0.3 k/uL (0-1.0); Monocytes % (A) 2 %; Neutrophils # (A) 9.9 k/uL (1.3-7.7); Neutrophils % (A) 92 %; Platelet Count 215 k/uL (150-450); RBC 3.49 m/uL (4.30-5.90); RDW 16.2 % (11.5-15.5); WBC 10.8 k/uL (3.8-10.6)
[2018-03-02 05:59] LABS: Calcium 8.4 mg/dL (8.4-10.2); Magnesium 2.2 mg/dL (1.6-2.3); Phosphorus 3.7 mg/dL (2.5-4.5); Potassium 3.6 mmol/L (3.5-5.1)
[2018-03-02] MEDS ORDERED: Potassium Replacement Protocol 1 EACH MISC MISCELLANE PRN (06:05)
[2018-03-02] MEDS ORDERED: POTASSIUM CHLORIDE ER 20 MEQ TAB.ER PO SCH (07:00)
[2018-03-02] MEDS: SUCRALFATE 1 GM TAB PO SCH ×2 (07:05→17:46)
[2018-03-02] MEDS: PANTOPRAZOLE 40 MG TABLET PO SCH ×2 (07:05→17:46)
[2018-03-02 07:21] LABS: Glucose,Whole Blood 147 mg/dL (75-99)
[2018-03-02] MEDS: INSULIN ASPART 100 UNIT/ML 1 ML 10 ML VIAL SQ SCH ×4 (07:24→22:00)
--- NOTE | 2018-03-02 08:10 | ECHOF ---
Referral Reason:chf MEASUREMENTS -------- HEIGHT: 177.8 cm WEIGHT: 116.1 kg BP: 103/67 RVIDd: 3.6 cm (< 3.3) IVSd: 1.5 cm (0.6 - 1.1) LVIDd: 5.0 cm (3.9 - 5.3) LVPWd: 1.3 cm (0.6 - 1.1) IVSs: 1.7 cm LVIDs: 3.8 cm LVPWs: 1.6 cm LA Diam: 3.4 cm (2.7 - 3.8) LAESV Index (A-L): 31.63 ml/m Ao Diam: 3.5 cm (2.0 - 3.7) AV Cusp: 2.5 cm (1.5 - 2.6) EPSS: 1.1 cm MV E Theodore: 0.68 m/s MV DecT: 218 ms MV A Theodore: 0.83 m/s MV E/A Ratio: 0.82 AV maxP.43 mmHg AV meanP.55 mmHg RAP: 5.00 mmHg RVSP: 27.00 mmHg MV EF SLOPE: 63.22 mm/s (70 - 150) MV EXCURSION: 1.85 cm (> 18.000) FINDINGS -------- Sinus rhythm. This was a technically difficult study with suboptimal apical views. The left ventricular size is normal. There is moderate concentric left ventricular hypertrophy. O verall left ventricular systolic function is severely impaired with, an EF between 25 - 30 %. Mid a nterior LV wall motion is akinetic. Mid anteroseptal LV wall motion is akinetic. Apical anterio r LV wall motion is akinetic. Apical inferior LV wall motion is akinetic. Apical septum LV wall motion is akinetic. The right ventricle is mild to moderately enlarged. LA is midly dilated 29-33ml/m2. The right atrium was not well visualized. There is mild aortic valve sclerosis. Peak/mean gradient across the Aortic Valve is 25.43mmHg / 13. 55mmHg. There is mild regurgitation of the bioprosthetic aortic valve. Mild mitral annular calcification present. Mild mitral regurgitation is present. Mild tricuspid regurgitation present. Right ventricular systolic pressure is normal at < 35 mmHg. The right ventricular systolic pressure, as measured by Doppler, is 27.00mmHg. The pulmonic valve was not well visualized. There is no pulmonic regurgitation present. The aortic root size is normal. Normal inferior vena cava with normal inspiratory collapse consistent with estimated right atrial pre ssure of 5 mmHg. There is a small, generalized pericardial effusion present. CONCLUSIONS -------- 1. Sinus rhythm. 2. This was a technically difficult study with suboptimal apical views. 3. The left ventricular size is normal. 4. There is moderate concentric left ventricular hypertrophy. 5. Overall left ventricular systolic function is severely impaired with, an EF between 25 - 30 %. 6. Mid anterior LV wall motion is akinetic. 7. Apical anterior LV wall motion is akinetic. 8. Apical inferior LV wall motion is akinetic. 9. Apical septum LV wall motion is akinetic. 10. The right ventricle is mild to moderately enlarged. 11. LA is midly dilated 29-33ml/m2. 12. There is mild aortic valve sclerosis. 13. Peak/mean gradient across the Aortic Valve is 25.43mmHg / 13.55mmHg. 14. There is mild regurgitation of the bioprosthetic aortic valve. 15. Mild mitral annular calcification present. 16. Mild mitral regurgitation is present. 17. Mild tricuspid regurgitation present. 18. Right ventricular systolic pressure is normal at < 35 mmHg. 19. The pulmonic valve was not well visualized. 20. There is no pulmonic regurgitation present. 21. The aortic root size is normal. 22. Normal inferior vena cava with normal inspiratory collapse consistent with estimated right atrial pressure of 5 mmHg. 23. There is a small, generalized pericardial effusion present. [employer]: BARBIE Reddy
[2018-03-02] MEDS: DULoxetine HCL 30 MG CAPSULE.DR PO SCH (08:44)
[2018-03-02] MEDS: ENOXAPARIN 40 MG/0.4 ML SYRINGE SQ SCH (08:44)
[2018-03-02] MEDS: DOCUSATE 100 MG CAP PO SCH ×2 (08:44→22:15)
[2018-03-02] MEDS: METOPROLOL TARTRATE 25 MG TAB PO SCH ×2 (08:44→22:23)
[2018-03-02] MEDS: ALLOPURINOL 300 MG TAB PO SCH (08:44)
[2018-03-02] MEDS: TAMSULOSIN 0.4 MG CAP.ER.24H PO SCH (08:45)
--- NOTE | 2018-03-02 10:57 | XR ---
EXAMINATION TYPE: XR chest 1V portable DATE OF EXAM: 03/02/2018 COMPARISON: 03/01/2018 INDICATION: CHF TECHNIQUE: Single frontal view of the chest is obtained. FINDINGS: The heart size is normal. The pulmonary vasculature is normal. There is mild increased opacification to the right lung. This is improving from comparison. Small rig ht pleural effusion and minimal left pleural effusion may remain present. IMPRESSION: 1. Diffuse right lung opacification slightly improving. Resolving atypical pulmonary edema or pneumon ia could be considered. 2. Minimal bilateral pleural effusions present.
[2018-03-02] MEDS: PATIENT'S OWN (Mirabegron [Myrbetriq] 50 MG) PO SCH (11:13)
[2018-03-02] MEDS: SODIUM CHLORIDE 0.9% 1,000 ML IV SCH (11:14)
[2018-03-02] MEDS: MULTIVITAMINS, THERA 1 EACH TAB PO SCH (12:06)
[2018-03-02] MEDS: FERROUS SULFATE 325 MG TAB PO SCH (12:06)
[2018-03-02 12:08] LABS: Glucose,Whole Blood 157 mg/dL (75-99)
--- NOTE | 2018-03-02 13:39 | P.PN ---
Subjective Progress Note Date: 03/02/18 This is an 82-year-old male patient of Dr. Self with past medical history significant for prostate cancer status post radiation therapy, coronary artery disease status post 3 vessel CABG and aortic valve replacement, diabetes mellitus type 2 insulin requiring, hypertension, hyperlipidemia. Patient came into the emergency department at [facility] yesterday because of generalized weakness and not feeling well, patient stated that he woke up on Tuesday and he had chills and went to bed for the next 2 days and did not do much, then tried to get out of bed when he slid down and could not get up so his called EMS and was brought to the ER he was evaluated in the ER and he was found to have a mild leukocytosis and a UTI for which she was admitted to the hospital for IV fluid resuscitation as well as IV antibiotic and urine culture and blood culture were sent, ID consultation was obtained from . 02/27: During the night, [facility]-Team was called because patient's pulse ox dropped to 70s, he was diaphoretic and feeling short of breath with heart rate in the 150s and temperature 101.9. EKG was sinus tachycardia. He was transferred to the intensive care unit. He was given half liter of IV fluids but previously had received 3.5 L of IV fluid. Ortiz catheter was placed. Blood culture is positive for E. coli and urine cultures gram-negative bacilli. Repeat blood culture ordered for today. Patient has been seen and followed by Dr. Block. Patient is currently on meropenem. Renal ultrasound reveals renal cyst. Largest on the left measuring 3 cm. Minimal ascites adjacent to the liver. No evidence of hydronephrosis. The patient had a total of 3 L urine output yesterday to 30 had 1 L this morning. He was given IV Lasix 40 mg once today and 60 mg yesterday once. Patient states that he is feeling much better from yesterday. His breathing is much more stable and he is flat in bed right now on BiPAP. White count is 9.8, hemoglobin 10.2, creatinine 1.58. 02/28: Patient is currently on BiPAP with FiO2 of 50% and pulse ox 93%. Vital signs at been stable and afebrile. White count is 9, creatinine 1.33. Repeat blood culture drawn yesterday as it is received. Initial blood and urine culture are positive for ESBL E. coli. Patient is currently on meropenem and followed by Dr. Block. Ortiz catheter remains in place, patient had a bowel movement yesterday. Patient states breathing is better today. He is currently on airflo which she seems to be tolerating and pulse ox is 93%. He did have one and half liters urine output this morning. Midline is scheduled for tomorrow. Patient wishes to be a DO NOT INTUBATE. 03/01: Patient remains in the intensive care unit currently on high flow nasal cannula pulse oxing 91 and 94%. Patient states that he is feeling better each day. Extremity edema is decreased. He has Ortiz remains in place with good urine output. He is currently on Lasix 40 mg every 12 hours IV. He did have a bowel movement this morning. Patient has not been out of bed since admission. PT and OT on. Case management has met with patient for planned for discharge to [facility]. Plan is to increase oral diet, increase activity. White count is normal, hemoglobin 11.1, creatinine 1.10. Blood sugars are running in the 150s and 160s. Repeat chest x-ray showing improvement in aeration. Patient is scheduled for midline placement and is currently on meropenem. 03/02: Patient remains in intensive care unit. He is currently pulse oxing 95- 97% on 13 L high flow nasal cannula. He states his breathing is better today. He has been maintained on nasal cannula through the night. He did get up in a chair yesterday. He is down 2.6 kg since yesterday. WBC is 10.8, hemoglobin 10.5, creatinine 1.17. Blood sugars been running between 147 and 198. Repeat chest x-ray shows diffuse right lung opacities occasional slightly improving. Resolving atypical pulmonary edema or pneumonia be considered. Minimal bilateral pleural effusions present. Echocardiogram reveals EF of 25-30% with moderate concentric left hypertrophy, LV wall motion is akinetic, elderly mildly dilated, mild regurgitation of bile prosthetic aortic valve, mild mitral regurgitation, mild tricuspid regurgitation. Patient is currently on meropenem and plan is for IV Invanz for total therapy course of 2 weeks. Review of Systems Constitutional: Reports fever, Reports generalized weakness, reports fatigue Eyes: denies blurred vision, denies bulging eye, denies decreased vision Ears: deny: decreased hearing Ears, nose, mouth and throat: Denies dysphagia, Denies neck lump, Denies sore throat Cardiovascular: Reports high blood pressure, Denies chest pain, Denies decreased exercise tolerance, Denies dyspnea on exertion, Denies phlebitis, Denies rapid heart beat, Denies shortness of breath Respiratory: Denies congestion, Denies cough with sputum, Denies hemoptysis, Denies home oxygen, Denies sleep apnea, Denies snoring, Denies wheezing, complains of shortness of breath-improving, complains of diaphoresis Gastrointestinal: Denies abdominal pain, Denies bloating, Denies BRBPR, Denies heartburn, Denies melena, Denies nausea, Denies vomiting Genitourinary: Reports nocturia, Reports polyuria, Denies dysuria Musculoskeletal: Denies myalgias Musculoskeletal: absent: ankle pain, ankle stiffness, ankle swelling, elbow pain , elbow stiffness, elbow swelling, foot pain, foot stiffness, foot swelling, hand pain, hand stiffness, hand swelling, hip pain, hip stiffness, hip swelling , knee pain, knee stiffness, knee swelling, shoulder pain, shoulder stiffness, shoulder swelling, wrist pain, wrist stiffness, wrist swelling Integumentary: Denies pruritus, Denies rash Neurological: Reports weakness, Denies numbness Psychiatric: Denies anxiety, Denies depression Endocrine: Denies fatigue, Denies weight change Objective - Vital Signs Vital signs: Vital Signs Temp 98.0 F 03/01/18 08:00 Pulse 69 03/01/18 11:00 Resp 19 03/01/18 11:00 BP 103/67 03/01/18 11:00 Pulse Ox 91 L 03/01/18 11:00 Intake & Output 02/28/18 03/01/18 03/01/18 18:59 06:59 18:59 Intake Total 460 240 100 Output Total 2890 1790 900 Balance -4346 -1500 -872 Weight 114.5 kg 116.3 kg Intake: IV 460 240 100 0.9 Normal Saline 200 Meropenem 1 gm In Sodium 100 Chloride 0.9% 100 ml @ 200 mls/hr IVPB Q8HR [facility] Rx#:[id number] Sodium Chloride 0.9% 1, 160 240 100 000 ml @ 20 mls/hr IV . Q24H [facility] Rx#:[id number] Output: Urine 2890 1790 900 Other: Voiding Method Indwelling Catheter Indwelling Catheter Indwelling Catheter # Bowel Movements 1 - Exam General appearance: average body habitus, no acute distress in bed, generalized weakness noted. Patient is on nasal cannula high flow 13 L. - EENT Eyes: anicteric sclerae, EOMI, PERRLA, no ptosis, no scleral icterus, normal appearance ENT: hearing grossly normal, NA/AT, normal oropharynx, no thrush Ears: bilateral: normal - Neck Neck: no lymphadenopathy, normal ROM, no rigidity, no stridor, no thyromegaly Carotids: bilateral: upstroke normal - Respiratory Respiratory: bilateral: diminished, negative: dullness, rales, rhonchi, wheezing , prolonged expiration, prolonged inspiration - Cardiovascular Rhythm: regular Heart sounds: normal: S1, S2 Abnormal Heart Sounds: systolic murmur - Gastrointestinal General gastrointestinal: normal bowel sounds, soft, no splenomegaly, no tenderness, no umbilical hernia, no ventral hernia - Integumentary Integumentary: normal, normal turgor - Neurologic Neurologic: CNII-XII intact - Musculoskeletal Musculoskeletal: generalized weakness, strength equal bilaterally - Psychiatric Psychiatric: A&O x's 3, appropriate affect, intact judgment & insight - Labs CBC & Chem 7: 03/02/18 04:28 03/02/18 04:28 Labs: Abnormal Lab Results - Last 24 Hours (Table) 02/28/18 02/28/18 03/01/18 Range/Units 17:05 20:39 06:46 RBC (4.30-5.90) m/uL Hgb (13.0-17.5) gm/dL Hct (39.0-53.0) % RDW (11.5-15.5) % BUN (9-20) mg/dL Glucose (74-99) mg/dL POC Glucose (mg/dL) 139 H 158 H 164 H (75-99) mg/dL 03/01/18 03/01/18 03/01/18 Range/Units 08:42 08:42 08:46 RBC 3.62 L (4.30-5.90) m/uL Hgb 11.1 L (13.0-17.5) gm/dL Hct 33.7 L (39.0-53.0) % RDW 16.4 H (11.5-15.5) % BUN 23 H (9-20) mg/dL Glucose 166 H (74-99) mg/dL POC Glucose (mg/dL) 161 H (75-99) mg/dL 03/01/18 Range/Units 12:04 RBC (4.30-5.90) m/uL Hgb (13.0-17.5) gm/dL Hct (39.0-53.0) % RDW (11.5-15.5) % BUN (9-20) mg/dL Glucose (74-99) mg/dL POC Glucose (mg/dL) 167 H (75-99) mg/dL Microbiology - Last 24 Hours (Table) 02/27/18 09:52 Blood Culture - Preliminary Blood No Growth after 48 hours 02/28/18 04:22 Blood Culture - Preliminary Blood No Growth after 24 hours 02/25/18 15:14 Blood Culture Gram Stain - Final Blood Blood Culture - Final Escherichia coli Assessment and Plan Plan: 1. ESBL E. coli UTI with E. coli sepsis and septic shock. Continue IV antibiotic in the form of meropenem, urine culture, blood culture as above, consult Dr. Block is appreciated. Midline placed. 2. Acute hypoxic respiratory failure requiring BiPAP secondary to sepsis, pulmonary edema with possible acute systolic heart failure and possible pneumonia. Patient is currently on high flow nasal cannula at 13 L, continue Solu-Medrol 40 mg IV every 6 hours, Lasix 40 mg IV every 12 hours, daily weights and I&O 3. Diabetes mellitus type 2, insulin requiring. Continue Janumet daily. 4. Hypertension. Continue lisinopril 5 mg at bedtime, off Lopressor. 5. CAD status post CABG. Continue Lipitor 10 mg orally once every day. 6. Status post aortic valve replacement. Stable. 7. Hyperlipidemia. Continue Lipitor 10 mg at bedtime. 8. Acute kidney injury. repeat labs in the morning. 9. Anemia. Probably chronic. Monitor CBC. 10. Gastrointestinal prophylaxis. Continue Protonix 40 mg orally once every day. 11. DVT prophylaxis. ANGELINA belle and SCDs. 12. 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 Continue Myrbetriq 50 mg daily. 13. History of obstructive sleep apnea normally on BiPAP at home. CODE STATUS: DO NOT INTUBATE Discharge plan: [facility] most likely on Tuesday Impression and plan of care have been directed as dictated by the signing physician. Amrita Núñez nurse practitioner acting as scribe for signing physician.
--- NOTE | 2018-03-02 14:25 | P.PN ---
Subjective Progress Note Date: 03/02/18 Principal diagnosis: Acute sepsis secondary to acute urinary tract infection secondary to ESBL E. coli. This is an 82-year-old white male with history of multiple medical problems including coronary artery disease and previous CABG 3, previous aortic valve replacement, type 2 diabetes, hypertension, prostate cancer status post radiation therapy, and recurrent urinary tract infections. Patient presented to the ER last night complaining of few days' history of generalized weakness, not feeling well, also complaining of chills, upon evaluation in the ER, patient was noted to have leukocytosis, and evidence of urinary tract infection. Patient was admitted, placed empirically on antibiotics, he is now on Merrem as recommended by the infectious disease physician on the case, and his blood cultures came back positive for E. coli, urine cultures came back positive for E. coli. Patient received fluid boluses, and his chest x-ray went on to show evidence of interstitial edema. He did not require any pressors, presently on diuretics for what seems to be interstitial edema. This could be cardiogenic or noncardiogenic in nature at this point. Patient is requiring to be on BiPAP, he is on 50% FiO2, IPAP of 12 and EPAP of 6. Presently in the ICU on BiPAP. Patient was reevaluated today in the ICU, hemodynamically stable, remains on high flow oxygen at 80% FiO2, and 65 L/m using airvo. Chest x-ray is showing worsening edema, possibility of pneumonia is not entirely ruled out, but the findings are mostly findings of right sided pulmonary edema./Unilateral. Patient remains on Merrem as per infectious disease on the case. Remains short of breath, diffuse rhonchi and wheezes noted bilaterally especially on the right side. WBC count is 9 hemoglobin is 10.5, electrolytes are normal, BUN is 18 and creatinine is improved to 1.33 today. Considering his lung findings and his symptoms, I will go ahead and recommend dose of Lasix which was given, I have also recommended adding Solu-Medrol. And I will maintain the patient on Lasix at 40 mg IV push every 12 hours. In the meantime patient will remain on high flow oxygen. On 03/01/2018, patient remains in the intensive care unit, we were able to get him down to 15 L nasal cannula high flow, saturating around 93%. Chest x-ray is showing significant improvement with diuretics, and I increased his Lasix from 40 mg every 12 hours to 40 mg every 8 hours. His proBNP level was significantly elevated, and again the findings are findings of pulmonary edema rather than pneumonia. And it is likely cardiogenic in nature rather than noncardiogenic since the patient had a significant improvement with diuresis basically speaking overnight. Follow-up blood cultures have been negative initial blood cultures were positive for E. coli/ESBL. CBC is relatively normal today. Electrolytes are normal BUN is 23 creatinine is significantly improved down to 1.1, it was as high as 1.62 on presentation. 03/02/2018, patient remains in the intensive care unit, remains on relatively high flow nasal cannula about 9 L, O2 sats saturation is 95% presently. Patient is feeling better, his chest x-ray is improving, and his echocardiogram is consistent with LV dysfunction and ejection fraction of 25-50%. Patient continues to have significant urine output, his creatinine is holding 1.17 today. Chest x-ray is showing improvement in his pulmonary edema patient does not have pneumonia it is basically all pulmonary edema improved practically speaking in 2 days after the course of diuresis. And knowing that his BNP level was elevated, knowing that his echocardiogram showed LV dysfunction, this is clearly systolic congestive heart failure. Again no pneumonia whatsoever. WBC count today is 10.8 hemoglobin is 10.5. Electrolytes are normal bicarb is 30 BUN is 32 creatinine 1.17. I reviewed the echocardiogram, and his right atrial pressure was noted to be low, and I felt that the patient is probably on the dry side if any at this point. Hence I will cut down the Lasix to 20 mg twice a day instead of 3 times a day. Considering the patient remains on a relatively high flow nasal cannula, I plan to keep him in the ICU, and we'll likely arrange for transfer out of the ICU in the next 24 hours assuming the patient continues to do well. Chest x-ray was reviewed and discussed with the patient and his at bedside. Objective - Vital Signs Vital signs: Vital Signs Temp 98.1 F 03/02/18 12:00 Pulse 73 03/02/18 13:00 Resp 18 03/02/18 13:00 BP 109/66 03/02/18 13:00 Pulse Ox 94 L 03/02/18 13:00 Intake & Output 03/01/18 03/02/18 03/02/18 18:59 06:59 18:59 Intake Total 631 155 6575 Output Total 2871 1885 1275 Balance -7075 -5545 65 Weight 113.9 kg Intake: IV 340 420 140 Meropenem 1 gm In Sodium 100 200 Chloride 0.9% 100 ml @ 200 mls/hr IVPB Q8HR DEL[facility] Rx#:[id number] Sodium Chloride 0.9% 1, 240 220 140 000 ml @ 20 mls/hr IV . Q24H [facility] Rx#:[id number] Oral 1200 Output: Urine 287 1883 1275 Other: Voiding Method Indwelling Catheter Indwelling Catheter Indwelling Catheter - Exam General appearance: Revealed an 82-year-old white male, obese, in no distress, however he remains on 9 L nasal cannula high flow. Head exam: atraumatic, normocephalic, Eye exam: normal appearance, PERRL, EOMI. Absent: scleral icterus, conjunctival injection, periorbital swelling ENT exam: normal exam, mucous membranes moist Neck exam: normal inspection. Absent: tenderness, meningismus, lymphadenopathy Respiratory exam: Diminished breath bilaterally, crackles noted, bilaterally, more on the right side. no rhonchi no wheezes. Cardiovascular Exam: normal rhythm, tachycardia, normal heart sounds. No murmur, no rubs. GI/Abdominal exam: Obese, soft, normal bowel sounds. Negative rebound, guarding , positive bowel sounds Extremities exam: normal inspection, full ROM, normal capillary refill. 1+ bipedal edema. Back exam: normal inspection Neurological exam: alert, oriented X3, CN II-XII intact Psychiatric exam: normal affect, normal mood Skin exam: Present: warm, dry, intact, normal color. No evidence of erythema or rashes. - Labs CBC & Chem 7: 03/02/18 04:28 03/02/18 04:28 Labs: Abnormal Lab Results - Last 24 Hours (Table) 03/01/18 03/01/18 03/02/18 Range/Units 17:14 20:57 04:28 WBC 10.8 H (3.8-10.6) k/uL RBC 3.49 L (4.30-5.90) m/uL Hgb 10.5 L (13.0-17.5) gm/dL Hct 32.3 L (39.0-53.0) % RDW 16.2 H (11.5-15.5) % Neutrophils # 9.9 H (1.3-7.7) k/uL Lymphocytes # 0.6 L (1.0-4.8) k/uL BUN (9-20) mg/dL Glucose (74-99) mg/dL POC Glucose (mg/dL) 163 H 198 H (75-99) mg/dL 03/02/18 03/02/18 03/02/18 Range/Units 04:28 07:09 11:56 WBC (3.8-10.6) k/uL RBC (4.30-5.90) m/uL Hgb (13.0-17.5) gm/dL Hct (39.0-53.0) % RDW (11.5-15.5) % Neutrophils # (1.3-7.7) k/uL Lymphocytes # (1.0-4.8) k/uL BUN 32 H (9-20) mg/dL Glucose 154 H (74-99) mg/dL POC Glucose (mg/dL) 147 H 157 H (75-99) mg/dL Microbiology - Last 24 Hours (Table) 02/27/18 09:52 Blood Culture - Preliminary Blood No Growth after 72 hours 02/28/18 04:22 Blood Culture - Preliminary Blood No Growth after 48 hours Assessment and Plan Assessment: Impression: 1 acute sepsis secondary to acute urinary tract infection secondary to E. coli. ESBL, patient is now on Merrem. 2 possibility of pyelonephritis is being considered, however it was ruled out. 3 acute kidney injury secondary to sepsis. Improving steadily since admission, creatinine is 1.1 today. 4 acute pulmonary edema and systolic dysfunction, echocardiogram and elevated BNP confirmed the findings. 5 history of obstructive sleep apnea normally on BiPAP at home. We'll continue BiPAP during sleep type while inpatient. 6 acute hypoxic respiratory failure secondary to sepsis, pulmonary edema secondary to systolic congestive heart failure, this is based on the echocardiogram findings. 7 history of multiple comorbidities including prostate cancer, previous radiation and previous radiation cystitis, hypertension, type 2 diabetes, previous CABG, and previous aortic valve replacement. History of hyperlipidemia , history of obstructive sleep apnea syndrome. Recommendation: Discussed with the patient and his the findings on the chest x-ray today, discussed the findings on his echocardiogram, discussed all the labs, and I felt the patient will need to remain on Lasix at 40 mg IV push every 12 hours, I have also recommended that he stays in the ICU, will continue to titrate the FiO2 down as tolerated, maintain O2 saturation above 93%. Continue antibiotics as per infectious disease on the case for ESBL. Patient already had a PICC line placed, and that will be used on outpatient basis for the treatment of ESBL sepsis. Patient is not quite ready to be transferred out of the ICU today. Time with Patient: Less than 30
[2018-03-02 17:01] LABS: Glucose,Whole Blood 182 mg/dL (75-99)
[2018-03-02 20:39] LABS: Glucose,Whole Blood 172 mg/dL (75-99)
[2018-03-02] MEDS: LINAGLIPTIN 5 MG TABLET PO SCH (22:00)
[2018-03-02] MEDS: ATORVASTATIN 10 MG TAB PO SCH (22:00)
[2018-03-02] MEDS: CALCIUM CARB-VIT D 500MG-200UN 1 EACH TAB PO SCH (22:00)
[2018-03-02] MEDS: metFORMIN 500 MG TAB PO SCH (22:00)
[2018-03-02] MEDS: LISINOPRIL 5 MG TAB PO SCH (22:17)
--- NOTE | 2018-03-02 22:18 | PN ---
PROGRESS NOTE DATE OF SERVICE: 03/02/2018. REASON FOR FOLLOWUP: ESBL E coli urinary tract infection with bacteremia. INTERVAL HISTORY: The patient is currently afebrile. He seemed to be breathing more comfortably and denies having any chest pain. Occasional cough. No nausea, no vomiting. No abdominal pain. No diarrhea. EXAMINATION: Blood pressure 102/64, pulse of 65, temperature 98. He is 93% on 13 L high-flow oxygen. General description is an elderly male lying in bed in no distress. Respiratory system unlabored breathing. Clear to auscultation anteriorly. Heart S1, S2. Regular rate and rhythm. ABDOMEN: Soft, no tenderness. LABS: Blood culture repeat has been negative so far. DIAGNOSTIC IMPRESSION AND PLAN: Patient with ESBL E coli bacteremia secondary to urinary source. The patient's blood cultures 02/27/2018 has been negative. The patient did get his midline. He will continue on meropenem that will be transitioned to Invanz 1 g daily to finish a 2 week course. negative blood culture with close outpatient followup. Continue supportive care. MMODL / IJN: [id number] /
[2018-03-03] MEDS: methylPREDNISolone SOD SUCCI 40 MG/ML 1 ML VIAL IV SCH ×3 (04:18→21:19)
[2018-03-03 05:05] LABS: Anisocytosis Slight; Basophils % (A) 0 %; Eosinophils % (A) 0 %; HCT 32.6 % (39.0-53.0); HGB 10.9 gm/dL (13.0-17.5); Lymphocytes # (A) 0.7 k/uL (1.0-4.8); Lymphocytes % (A) 8 %; MCHC 33.5 g/dL (31.0-37.0); MCV 92.6 fL (80.0-100.0); Mean Platelet Volume 8.2; Monocytes # (A) 0.4 k/uL (0-1.0); Monocytes % (A) 5 %; Neutrophils # (A) 7.4 k/uL (1.3-7.7); Neutrophils % (A) 86 %; Platelet Count 211 k/uL (150-450); RBC 3.52 m/uL (4.30-5.90); RDW 16.2 % (11.5-15.5); WBC 8.6 k/uL (3.8-10.6)
[2018-03-03 05:14] LABS: Calcium 8.5 mg/dL (8.4-10.2); Magnesium 2.3 mg/dL (1.6-2.3); Phosphorus 3.9 mg/dL (2.5-4.5); Potassium 3.6 mmol/L (3.5-5.1)
[2018-03-03 07:27] LABS: Glucose,Whole Blood 131 mg/dL (75-99)
[2018-03-03] MEDS: INSULIN ASPART 100 UNIT/ML 1 ML 10 ML VIAL SQ SCH ×4 (07:27→21:20)
[2018-03-03] MEDS: MEROPENEM 1 GM in SODIUM CHLORIDE 0.9% 100 ML IVPB SCH ×3 (07:33→21:21)
[2018-03-03] MEDS: PANTOPRAZOLE 40 MG TABLET PO SCH ×2 (07:39→17:12)
[2018-03-03] MEDS: SUCRALFATE 1 GM TAB PO SCH ×2 (07:51→17:12)
[2018-03-03] MEDS: TAMSULOSIN 0.4 MG CAP.ER.24H PO SCH (07:52)
[2018-03-03] MEDS: DOCUSATE 100 MG CAP PO SCH ×2 (07:52→21:20)
[2018-03-03] MEDS: METOPROLOL TARTRATE 25 MG TAB PO SCH ×2 (07:52→21:20)
[2018-03-03] MEDS: PATIENT'S OWN (Mirabegron [Myrbetriq] 50 MG) PO SCH (07:52)
[2018-03-03] MEDS: FUROSEMIDE 10 MG/ML 4 ML VIAL IV SCH ×2 (07:53→21:19)
[2018-03-03] MEDS: ENOXAPARIN 40 MG/0.4 ML SYRINGE SQ SCH (07:53)
[2018-03-03] MEDS: DULoxetine HCL 30 MG CAPSULE.DR PO SCH (07:54)
[2018-03-03 11:43] VITALS: BMI 35.6
[2018-03-03] MEDS: FERROUS SULFATE 325 MG TAB PO SCH (12:20)
[2018-03-03] MEDS: MULTIVITAMINS, THERA 1 EACH TAB PO SCH (12:20)
--- NOTE | 2018-03-03 12:23 | P.PN ---
Subjective Progress Note Date: 03/03/18 This is an 82-year-old male patient of Dr. Self with past medical history significant for prostate cancer status post radiation therapy, coronary artery disease status post 3 vessel CABG and aortic valve replacement, diabetes mellitus type 2 insulin requiring, hypertension, hyperlipidemia. Patient came into the emergency department at [facility] yesterday because of generalized weakness and not feeling well, patient stated that he woke up on Tuesday and he had chills and went to bed for the next 2 days and did not do much, then tried to get out of bed when he slid down and could not get up so his called EMS and was brought to the ER he was evaluated in the ER and he was found to have a mild leukocytosis and a UTI for which she was admitted to the hospital for IV fluid resuscitation as well as IV antibiotic and urine culture and blood culture were sent, ID consultation was obtained from . 02/27: During the night, [facility]-Team was called because patient's pulse ox dropped to 70s, he was diaphoretic and feeling short of breath with heart rate in the 150s and temperature 101.9. EKG was sinus tachycardia. He was transferred to the intensive care unit. He was given half liter of IV fluids but previously had received 3.5 L of IV fluid. Ortiz catheter was placed. Blood culture is positive for E. coli and urine cultures gram-negative bacilli. Repeat blood culture ordered for today. Patient has been seen and followed by Dr. Block. Patient is currently on meropenem. Renal ultrasound reveals renal cyst. Largest on the left measuring 3 cm. Minimal ascites adjacent to the liver. No evidence of hydronephrosis. The patient had a total of 3 L urine output yesterday to 30 had 1 L this morning. He was given IV Lasix 40 mg once today and 60 mg yesterday once. Patient states that he is feeling much better from yesterday. His breathing is much more stable and he is flat in bed right now on BiPAP. White count is 9.8, hemoglobin 10.2, creatinine 1.58. 02/28: Patient is currently on BiPAP with FiO2 of 50% and pulse ox 93%. Vital signs at been stable and afebrile. White count is 9, creatinine 1.33. Repeat blood culture drawn yesterday as it is received. Initial blood and urine culture are positive for ESBL E. coli. Patient is currently on meropenem and followed by Dr. Block. Ortiz catheter remains in place, patient had a bowel movement yesterday. Patient states breathing is better today. He is currently on airflo which she seems to be tolerating and pulse ox is 93%. He did have one and half liters urine output this morning. Midline is scheduled for tomorrow. Patient wishes to be a DO NOT INTUBATE. 03/01: Patient remains in the intensive care unit currently on high flow nasal cannula pulse oxing 91 and 94%. Patient states that he is feeling better each day. Extremity edema is decreased. He has Ortiz remains in place with good urine output. He is currently on Lasix 40 mg every 12 hours IV. He did have a bowel movement this morning. Patient has not been out of bed since admission. PT and OT on. Case management has met with patient for planned for discharge to [facility]. Plan is to increase oral diet, increase activity. White count is normal, hemoglobin 11.1, creatinine 1.10. Blood sugars are running in the 150s and 160s. Repeat chest x-ray showing improvement in aeration. Patient is scheduled for midline placement and is currently on meropenem. 03/02: Patient remains in intensive care unit. He is currently pulse oxing 95- 97% on 13 L high flow nasal cannula. He states his breathing is better today. He has been maintained on nasal cannula through the night. He did get up in a chair yesterday. He is down 2.6 kg since yesterday. WBC is 10.8, hemoglobin 10.5, creatinine 1.17. Blood sugars been running between 147 and 198. Repeat chest x-ray shows diffuse right lung opacities occasional slightly improving. Resolving atypical pulmonary edema or pneumonia be considered. Minimal bilateral pleural effusions present. Echocardiogram reveals EF of 25-30% with moderate concentric left hypertrophy, LV wall motion is akinetic, elderly mildly dilated, mild regurgitation of bile prosthetic aortic valve, mild mitral regurgitation, mild tricuspid regurgitation. Patient is currently on meropenem and plan is for IV Invanz for total therapy course of 2 weeks. 03/03: Patient is found sitting up in a chair. He is currently on high flow nasal cannula at 10 L pulse oxing 97%. Patient is scheduled for transfer to cardiac stepdown unit today. He has been afebrile, hemoglobin 10.9, white count 8.6, creatinine 1.22. Blood sugars running between 131 and 182. His hemoglobin A1c was 6.3. Repeat blood cultures remain with no growth. Midline has been placed. Anticipate discharge to [facility] on Tuesday. Review of Systems Constitutional: Reports fever, Reports generalized weakness, reports fatigue Eyes: denies blurred vision, denies bulging eye, denies decreased vision Ears: deny: decreased hearing Ears, nose, mouth and throat: Denies dysphagia, Denies neck lump, Denies sore throat Cardiovascular: Reports high blood pressure, Denies chest pain, Denies decreased exercise tolerance, Denies dyspnea on exertion, Denies phlebitis, Denies rapid heart beat, Denies shortness of breath Respiratory: Denies congestion, Denies cough with sputum, Denies hemoptysis, Denies home oxygen, Denies sleep apnea, Denies snoring, Denies wheezing, complains of shortness of breath-improving, complains of diaphoresis Gastrointestinal: Denies abdominal pain, Denies bloating, Denies BRBPR, Denies heartburn, Denies melena, Denies nausea, Denies vomiting Genitourinary: Reports nocturia, Reports polyuria, Denies dysuria Musculoskeletal: Denies myalgias Musculoskeletal: absent: ankle pain, ankle stiffness, ankle swelling, elbow pain , elbow stiffness, elbow swelling, foot pain, foot stiffness, foot swelling, hand pain, hand stiffness, hand swelling, hip pain, hip stiffness, hip swelling , knee pain, knee stiffness, knee swelling, shoulder pain, shoulder stiffness, shoulder swelling, wrist pain, wrist stiffness, wrist swelling Integumentary: Denies pruritus, Denies rash Neurological: Reports weakness, Denies numbness Psychiatric: Denies anxiety, Denies depression Endocrine: Reports fatigue, Denies weight change Objective - Vital Signs Vital signs: Vital Signs Temp 98.1 F 03/03/18 08:00 Pulse 63 03/03/18 10:00 Resp 17 03/03/18 10:00 BP 97/54 03/03/18 10:00 Pulse Ox 97 03/03/18 10:00 Intake & Output 03/02/18 03/03/18 03/03/18 18:59 06:59 18:59 Intake Total 1680 970 270 Output Total 1720 2140 1255 Balance -40 -1170 -985 Weight 112.7 kg Intake: IV 360 320 170 Meropenem 1 gm In Sodium 100 100 100 Chloride 0.9% 100 ml @ 200 mls/hr IVPB Q8H [facility] Rx#:[id number] Sodium Chloride 0.9% 1, 260 220 70 000 ml @ 20 mls/hr IV . Q24H [facility]MY Rx#:[id number] Oral 1320 650 100 Output: Urine 1720 2140 1255 Other: Voiding Method Indwelling Catheter Indwelling Catheter # Voids 1 # Bowel Movements 1 - Exam General appearance: average body habitus, no acute distress while sitting in chair, generalized weakness noted. Patient is on nasal cannula high flow 10 L. - EENT Eyes: anicteric sclerae, EOMI, PERRLA, no ptosis, no scleral icterus, normal appearance ENT: hearing grossly normal, NA/AT, normal oropharynx, no thrush Ears: bilateral: normal - Neck Neck: no lymphadenopathy, normal ROM, no rigidity, no stridor, no thyromegaly Carotids: bilateral: upstroke normal - Respiratory Respiratory: bilateral: diminished, negative: dullness, rales, rhonchi, wheezing , prolonged expiration, prolonged inspiration - Cardiovascular Rhythm: regular Heart sounds: normal: S1, S2 Abnormal Heart Sounds: systolic murmur - Gastrointestinal General gastrointestinal: normal bowel sounds, soft, no splenomegaly, no tenderness, no umbilical hernia, no ventral hernia - Integumentary Integumentary: normal, normal turgor - Neurologic Neurologic: CNII-XII intact - Musculoskeletal Musculoskeletal: generalized weakness, strength equal bilaterally - Psychiatric Psychiatric: A&O x's 3, appropriate affect, intact judgment & insight - Labs CBC & Chem 7: 03/03/18 04:28 03/03/18 04:28 Labs: Abnormal Lab Results - Last 24 Hours (Table) 03/02/18 03/02/18 03/02/18 Range/Units 11:56 16:49 20:29 RBC (4.30-5.90) m/uL Hgb (13.0-17.5) gm/dL Hct (39.0-53.0) % RDW (11.5-15.5) % Lymphocytes # (1.0-4.8) k/uL Carbon Dioxide (22-30) mmol/L BUN (9-20) mg/dL Glucose (74-99) mg/dL POC Glucose (mg/dL) 157 H 182 H 172 H (75-99) mg/dL 03/03/18 03/03/18 03/03/18 Range/Units 04:28 04:28 07:16 RBC 3.52 L (4.30-5.90) m/uL Hgb 10.9 L (13.0-17.5) gm/dL Hct 32.6 L (39.0-53.0) % RDW 16.2 H (11.5-15.5) % Lymphocytes # 0.7 L (1.0-4.8) k/uL Carbon Dioxide 32 H (22-30) mmol/L BUN 37 H (9-20) mg/dL Glucose 120 H (74-99) mg/dL POC Glucose (mg/dL) 131 H (75-99) mg/dL Microbiology - Last 24 Hours (Table) 02/28/18 04:22 Blood Culture - Preliminary Blood No Growth after 72 hours 02/27/18 09:52 Blood Culture - Preliminary Blood No Growth after 72 hours Assessment and Plan Plan: 1. ESBL E. coli UTI with E. coli sepsis and septic shock. Continue IV antibiotic in the form of meropenem, urine culture, blood culture as above, consult Dr. Block is appreciated. Midline placed. 2. Acute hypoxic respiratory failure requiring BiPAP secondary to sepsis, pulmonary edema with possible acute systolic heart failure and possible pneumonia. Patient is currently on high flow nasal cannula at 10 L, continue Solu-Medrol 40 mg IV every 12hours, Lasix 40 mg IV every 12 hours, daily weights and I&O 3. Diabetes mellitus type 2, insulin requiring. Continue Janumet daily. 4. Hypertension. Continue lisinopril 5 mg at bedtime, off Lopressor. 5. CAD status post CABG. Continue Lipitor 10 mg orally once every day. 6. Status post aortic valve replacement. Stable. 7. Hyperlipidemia. Continue Lipitor 10 mg at bedtime. 8. Acute kidney injury. repeat labs in the morning. 9. Anemia. Probably chronic. Monitor CBC. 10. Gastrointestinal prophylaxis. Continue Protonix 40 mg orally once every day. 11. DVT prophylaxis. ANGELINA belle and SCDs. 12. 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 Continue Myrbetriq 50 mg daily. 13. History of obstructive sleep apnea normally on BiPAP at home. CODE STATUS: DO NOT INTUBATE Discharge plan: on Tuesday with IV antibiotics Impression and plan of care have been directed as dictated by the signing physician. Amrita Núñez nurse practitioner acting as scribe for signing physician.
[2018-03-03 12:25] LABS: Glucose,Whole Blood 146 mg/dL (75-99)
--- NOTE | 2018-03-03 13:04 | P.PN ---
Subjective Progress Note Date: 03/03/18 Principal diagnosis: Acute sepsis secondary to acute urinary tract infection secondary to ESBL E. coli. This is an 82-year-old white male with history of multiple medical problems including coronary artery disease and previous CABG 3, previous aortic valve replacement, type 2 diabetes, hypertension, prostate cancer status post radiation therapy, and recurrent urinary tract infections. Patient presented to the ER last night complaining of few days' history of generalized weakness, not feeling well, also complaining of chills, upon evaluation in the ER, patient was noted to have leukocytosis, and evidence of urinary tract infection. Patient was admitted, placed empirically on antibiotics, he is now on Merrem as recommended by the infectious disease physician on the case, and his blood cultures came back positive for E. coli, urine cultures came back positive for E. coli. Patient received fluid boluses, and his chest x-ray went on to show evidence of interstitial edema. He did not require any pressors, presently on diuretics for what seems to be interstitial edema. This could be cardiogenic or noncardiogenic in nature at this point. Patient is requiring to be on BiPAP, he is on 50% FiO2, IPAP of 12 and EPAP of 6. Presently in the ICU on BiPAP. Patient was reevaluated today in the ICU, hemodynamically stable, remains on high flow oxygen at 80% FiO2, and 65 L/m using airvo. Chest x-ray is showing worsening edema, possibility of pneumonia is not entirely ruled out, but the findings are mostly findings of right sided pulmonary edema./Unilateral. Patient remains on Merrem as per infectious disease on the case. Remains short of breath, diffuse rhonchi and wheezes noted bilaterally especially on the right side. WBC count is 9 hemoglobin is 10.5, electrolytes are normal, BUN is 18 and creatinine is improved to 1.33 today. Considering his lung findings and his symptoms, I will go ahead and recommend dose of Lasix which was given, I have also recommended adding Solu-Medrol. And I will maintain the patient on Lasix at 40 mg IV push every 12 hours. In the meantime patient will remain on high flow oxygen. On 03/01/2018, patient remains in the intensive care unit, we were able to get him down to 15 L nasal cannula high flow, saturating around 93%. Chest x-ray is showing significant improvement with diuretics, and I increased his Lasix from 40 mg every 12 hours to 40 mg every 8 hours. His proBNP level was significantly elevated, and again the findings are findings of pulmonary edema rather than pneumonia. And it is likely cardiogenic in nature rather than noncardiogenic since the patient had a significant improvement with diuresis basically speaking overnight. Follow-up blood cultures have been negative initial blood cultures were positive for E. coli/ESBL. CBC is relatively normal today. Electrolytes are normal BUN is 23 creatinine is significantly improved down to 1.1, it was as high as 1.62 on presentation. 03/02/2018, patient remains in the intensive care unit, remains on relatively high flow nasal cannula about 9 L, O2 sats saturation is 95% presently. Patient is feeling better, his chest x-ray is improving, and his echocardiogram is consistent with LV dysfunction and ejection fraction of 25-50%. Patient continues to have significant urine output, his creatinine is holding 1.17 today. Chest x-ray is showing improvement in his pulmonary edema patient does not have pneumonia it is basically all pulmonary edema improved practically speaking in 2 days after the course of diuresis. And knowing that his BNP level was elevated, knowing that his echocardiogram showed LV dysfunction, this is clearly systolic congestive heart failure. Again no pneumonia whatsoever. WBC count today is 10.8 hemoglobin is 10.5. Electrolytes are normal bicarb is 30 BUN is 32 creatinine 1.17. I reviewed the echocardiogram, and his right atrial pressure was noted to be low, and I felt that the patient is probably on the dry side if any at this point. Hence I will cut down the Lasix to 20 mg twice a day instead of 3 times a day. Considering the patient remains on a relatively high flow nasal cannula, I plan to keep him in the ICU, and we'll likely arrange for transfer out of the ICU in the next 24 hours assuming the patient continues to do well. Chest x-ray was reviewed and discussed with the patient and his at bedside. Patient was reevaluated today on 03/03/2018, has been feeling better over the last couple of days, breathing a lot easier, remains on high flow nasal cannula , pulse ox is 97%. No chest x-ray was done, but clinically the patient is improving. Less shortness of breath, no cough no wheezing no nausea no vomiting no abdominal pain. Patient's labs were all reviewed, renal functioning is improving. Hemoglobin is holding at 10.9 WBC count is 8.6. Blood sugars seem to be under control. And I plan to repeat a chest x-ray tomorrow. Objective - Vital Signs Vital signs: Vital Signs Temp 98.0 F 03/03/18 12:00 Pulse 63 03/03/18 12:00 Resp 16 03/03/18 12:00 BP 103/69 03/03/18 12:00 Pulse Ox 97 03/03/18 12:00 Intake & Output 03/02/18 03/03/18 03/03/18 18:59 06:59 18:59 Intake Total 1680 970 310 Output Total 1720 2140 1455 Balance -40 -1170 -1145 Weight 112.7 kg Intake: IV 360 320 210 Meropenem 1 gm In Sodium 100 100 100 Chloride 0.9% 100 ml @ 200 mls/hr IVPB Q8H [facility] Rx#:[id number] Sodium Chloride 0.9% 1, 260 220 110 000 ml @ 20 mls/hr IV . Q24H [facility] Rx#:[id number] Oral 1320 650 100 Output: Urine 1720 2140 1455 Other: Voiding Method Indwelling Catheter Indwelling Catheter # Voids 1 # Bowel Movements 1 1 - Exam General appearance: Revealed an 82-year-old white male, obese, in no distress, however he remains on 10 L nasal cannula high flow. Head exam: atraumatic, normocephalic, Eye exam: normal appearance, PERRL, EOMI. Absent: scleral icterus, conjunctival injection, periorbital swelling ENT exam: normal exam, mucous membranes moist Neck exam: normal inspection. Absent: tenderness, meningismus, lymphadenopathy Respiratory exam: Diminished breath bilaterally, crackles noted, bilaterally, more on the right side. no rhonchi no wheezes. Cardiovascular Exam: normal rhythm, tachycardia, normal heart sounds. No murmur, no rubs. GI/Abdominal exam: Obese, soft, normal bowel sounds. Negative rebound, guarding , positive bowel sounds Extremities exam: normal inspection, full ROM, normal capillary refill. 1+ bipedal edema. Back exam: normal inspection Neurological exam: alert, oriented X3, CN II-XII intact Psychiatric exam: normal affect, normal mood Skin exam: Present: warm, dry, intact, normal color. No evidence of erythema or rashes. - Labs CBC & Chem 7: 12/14/18 04:28 03/03/18 04:28 Labs: Abnormal Lab Results - Last 24 Hours (Table) 03/02/18 03/02/18 03/03/18 Range/Units 16:49 20:29 04:28 RBC 3.52 L (4.30-5.90) m/uL Hgb 10.9 L (13.0-17.5) gm/dL Hct 32.6 L (39.0-53.0) % RDW 16.2 H (11.5-15.5) % Lymphocytes # 0.7 L (1.0-4.8) k/uL Carbon Dioxide (22-30) mmol/L BUN (9-20) mg/dL Glucose (74-99) mg/dL POC Glucose (mg/dL) 182 H 172 H (75-99) mg/dL 03/03/18 03/03/18 03/03/18 Range/Units 04:28 07:16 12:13 RBC (4.30-5.90) m/uL Hgb (13.0-17.5) gm/dL Hct (39.0-53.0) % RDW (11.5-15.5) % Lymphocytes # (1.0-4.8) k/uL Carbon Dioxide 32 H (22-30) mmol/L BUN 37 H (9-20) mg/dL Glucose 120 H (74-99) mg/dL POC Glucose (mg/dL) 131 H 146 H (75-99) mg/dL Microbiology - Last 24 Hours (Table) 02/27/18 09:52 Blood Culture - Preliminary Blood No Growth after 96 hours 02/28/18 04:22 Blood Culture - Preliminary Blood No Growth after 72 hours Assessment and Plan Assessment: Impression: 1 acute sepsis secondary to acute urinary tract infection secondary to E. coli. ESBL, remains on Merrem and he would likely have met him on outpatient basis, a PICC line was already established. 2 status post PICC line placement for IV antibiotics on outpatient basis. 3 acute kidney injury secondary to sepsis. Creatinine today is 1.22 4 acute pulmonary edema and systolic dysfunction, echocardiogram and elevated BNP confirmed the findings. 5 history of obstructive sleep apnea normally on BiPAP at home.continue BiPAP during sleep type while inpatient. 6 acute hypoxic respiratory failure secondary to sepsis, pulmonary edema secondary to systolic congestive heart failure, this is based on the echocardiogram findings. And elevated BNP level. 7 prostate cancer and previous radiation cystitis. 8 benign essential hypertension 9 type 2 diabetes 10 previous CABG and previous aortic valve replacement 11 hyperlipidemia 12 obstructive sleep apnea syndrome. Recommendation: Continue diuretics, continue CPAP at night, continue all cardiac meds, and continue to watch closely her renal profile. Continue Merrem , arrange for possible discharge planning in the next couple of days. Patient will need to be on IV antibiotics/problem as recommended by infectious disease on the case. Discussed his condition with him and with his at bedside. Today I will arrange for the patient to be transferred to a monitor bed on selective. Time with Patient: Less than 30
[2018-03-03] MEDS: SODIUM CHLORIDE 0.9% 1,000 ML IV SCH (13:29)
--- NOTE | 2018-03-03 16:18 | CDI ---
Documentation Clarification Form Date: 03/03/2018 3:54:40 PM From: Haleigh Camara RN, CCDS Admit Date: 02/25/2018 6:20:00 PM Patient Name: Franklyn Figueroa Visit Number: [id number] Discharge Date: ATTENTION: The Clinical Documentation Specialists (CDI) and [facility] Coding Staff appreciate your assistance in clarifying documentation. Please respond to the clarification below the line at the bottom and electronically sign. The CDI & [facility] Coding staff will review the response and follow-up if needed. Please note: Queries are made part of the Legal Health Record. If you have any questions, please contact the author of this message via ITS. Dr. Can Mendoza Systolic congestive heart failure is documented in your progress notes on 03/01 and ongoing progress notes and clarification of the acuity is needed. History/Risk Factors: Coronary artery disease, Diabetes Mellitus type 2, Hypertension, UTI, Obstructive sleep apnea syndrome/BIPAP Clinical Indicators: ED for evaluation of weakness and fatigue. Patient received fluid boluses and his chest x-ray went on to show evidence of interstitial edema. He has shortness of breath 02/27/18 Initial pulmonary consult: Suspect some component of pulmonary edema and systolic dysfunction. VS/Pulse OX: 106/53 114 18 101.9 BNP: [id number] Echocardiogram Results: EF between 25-30 % Chest X Ray: 02/26/18 There is evidence for new congestive heart failure. Treatment: Lasix IV Monitor O2 Sat's (titrate) Solu-Mertol IV Lopressor PO In your professional opinion, can you please clarify the acuity of CHF if known? Acute Systolic congestive heart failure Chronic Systolic congestive heart failure Acute on Chronic Systolic congestive heart failure Unable to Determine Other, please specify (Last Revision: June 2017) MTDD
[2018-03-03 17:30] LABS: Glucose,Whole Blood 114 mg/dL (75-99)
--- NOTE | 2018-03-03 19:38 | P.PN ---
Progress Note - Text Progress Note Date: 03/03/18 documentation verification: patient had acute systolic congestive heart failure
[2018-03-03 20:59] LABS: Glucose,Whole Blood 132 mg/dL (75-99)
[2018-03-03] MEDS: metFORMIN 500 MG TAB PO SCH (21:20)
[2018-03-03] MEDS: LINAGLIPTIN 5 MG TABLET PO SCH (21:20)
[2018-03-03] MEDS: ATORVASTATIN 10 MG TAB PO SCH (21:20)
[2018-03-03] MEDS: CALCIUM CARB-VIT D 500MG-200UN 1 EACH TAB PO SCH (21:20)
[2018-03-03] MEDS: LISINOPRIL 5 MG TAB PO SCH (21:20)
--- NOTE | 2018-03-03 22:45 | PN ---
PROGRESS NOTE DATE OF SERVICE: 03/03/2018. REASON FOR FOLLOWUP: ESBL E. coli UTI and bacteremia. INTERVAL HISTORY: The patient is currently afebrile, has been breathing comfortably. Denies having any chest pain or shortness of breath or cough. No nausea. No vomiting. No abdominal pain. No diarrhea. PHYSICAL EXAMINATION: Blood pressure 111/61 with a pulse of 73, temperature 97.6. He is 95% on 9 L nasal cannula. General description is an elderly male lying in bed in no distress. Respiratory system: Unlabored breathing. Clear to auscultation anteriorly. Heart S1, S2. Regular rate and rhythm. Abdomen soft, no tenderness. LABS: Hemoglobin is 10.1, white count 8.6, BUN of 37, creatinine 1.22. DIAGNOSTIC IMPRESSION AND PLAN: Patient with ESBL E coli urinary tract infection with secondary bacteremia. Follow up blood culture has been negative. Currently on meropenem to continue for now. Transition to IV Invanz at time of discharge to finish a 2 week course of therapy from negative blood cultures. Continue supportive care. MMODL / IJN: [id number] /
[2018-03-04 05:31] LABS: Anisocytosis Slight; Basophils % (A) 0 %; Eosinophils % (A) 0 %; HCT 33.1 % (39.0-53.0); HGB 10.5 gm/dL (13.0-17.5); Lymphocytes # (A) 0.7 k/uL (1.0-4.8); Lymphocytes % (A) 8 %; MCH 29.5 pg (25.0-35.0); MCHC 31.7 g/dL (31.0-37.0); MCV 93.1 fL (80.0-100.0); Mean Platelet Volume 7.8; Monocytes # (A) 0.3 k/uL (0-1.0); Monocytes % (A) 4 %; Neutrophils # (A) 7.4 k/uL (1.3-7.7); Neutrophils % (A) 87 %; Platelet Count 208 k/uL (150-450); RBC 3.56 m/uL (4.30-5.90); RDW 16.3 % (11.5-15.5); WBC 8.5 k/uL (3.8-10.6)
[2018-03-04 05:39] LABS: Calcium 8.5 mg/dL (8.4-10.2); Magnesium 2.3 mg/dL (1.6-2.3); Phosphorus 4.5 mg/dL (2.5-4.5); Potassium 3.7 mmol/L (3.5-5.1)
[2018-03-04] MEDS: MEROPENEM 1 GM in SODIUM CHLORIDE 0.9% 100 ML IVPB SCH ×3 (05:53→21:40)
[2018-03-04 07:15] LABS: Glucose,Whole Blood 111 mg/dL (75-99)
[2018-03-04] MEDS: INSULIN ASPART 100 UNIT/ML 1 ML 10 ML VIAL SQ SCH ×4 (08:30→21:41)
[2018-03-04] MEDS: ENOXAPARIN 40 MG/0.4 ML SYRINGE SQ SCH (09:37)
[2018-03-04] MEDS: DULoxetine HCL 30 MG CAPSULE.DR PO SCH (09:38)
[2018-03-04] MEDS: TAMSULOSIN 0.4 MG CAP.ER.24H PO SCH (09:38)
[2018-03-04] MEDS: SUCRALFATE 1 GM TAB PO SCH ×2 (09:38→17:33)
[2018-03-04] MEDS: ALLOPURINOL 300 MG TAB PO SCH (09:38)
[2018-03-04] MEDS: DOCUSATE 100 MG CAP PO SCH ×2 (09:38→21:40)
[2018-03-04] MEDS: PANTOPRAZOLE 40 MG TABLET PO SCH ×2 (09:38→17:33)
[2018-03-04] MEDS: methylPREDNISolone SOD SUCCI 40 MG/ML 1 ML VIAL IV SCH ×2 (09:39→21:40)
[2018-03-04] MEDS: METOPROLOL TARTRATE 25 MG TAB PO SCH ×2 (09:52→21:39)
[2018-03-04] MEDS: PATIENT'S OWN (Mirabegron [Myrbetriq] 50 MG) PO SCH (09:52)
--- NOTE | 2018-03-04 09:53 | XR ---
EXAMINATION TYPE: XR chest 1V portable DATE OF EXAM: 03/04/2018 HISTORY: chf. REFERENCE: Previous study dated 03/02/2018. FINDINGS: There has been a midline sternotomy. The heart is not enlarged. Pulmonary vasculature is normal. There is bibasilar atelectasis. There are small, bilateral effusions. IMPRESSION: 1. RESOLUTION OF THE PATIENT'S CONGESTIVE HEART FAILURE. 2. MILD, BILATERAL AIRSPACE DISEASE. 3. SMALL, BILATERAL EFFUSIONS.
--- NOTE | 2018-03-04 11:56 | P.PN ---
Subjective Progress Note Date: 03/04/18 Principal diagnosis: Acute sepsis secondary to acute urinary tract infection secondary to ESBL E. coli. This is an 82-year-old white male with history of multiple medical problems including coronary artery disease and previous CABG 3, previous aortic valve replacement, type 2 diabetes, hypertension, prostate cancer status post radiation therapy, and recurrent urinary tract infections. Patient presented to the ER last night complaining of few days' history of generalized weakness, not feeling well, also complaining of chills, upon evaluation in the ER, patient was noted to have leukocytosis, and evidence of urinary tract infection. Patient was admitted, placed empirically on antibiotics, he is now on Merrem as recommended by the infectious disease physician on the case, and his blood cultures came back positive for E. coli, urine cultures came back positive for E. coli. Patient received fluid boluses, and his chest x-ray went on to show evidence of interstitial edema. He did not require any pressors, presently on diuretics for what seems to be interstitial edema. This could be cardiogenic or noncardiogenic in nature at this point. Patient is requiring to be on BiPAP, he is on 50% FiO2, IPAP of 12 and EPAP of 6. Presently in the ICU on BiPAP. Patient was reevaluated today in the ICU, hemodynamically stable, remains on high flow oxygen at 80% FiO2, and 65 L/m using airvo. Chest x-ray is showing worsening edema, possibility of pneumonia is not entirely ruled out, but the findings are mostly findings of right sided pulmonary edema./Unilateral. Patient remains on Merrem as per infectious disease on the case. Remains short of breath, diffuse rhonchi and wheezes noted bilaterally especially on the right side. WBC count is 9 hemoglobin is 10.5, electrolytes are normal, BUN is 18 and creatinine is improved to 1.33 today. Considering his lung findings and his symptoms, I will go ahead and recommend dose of Lasix which was given, I have also recommended adding Solu-Medrol. And I will maintain the patient on Lasix at 40 mg IV push every 12 hours. In the meantime patient will remain on high flow oxygen. On 03/01/2018, patient remains in the intensive care unit, we were able to get him down to 15 L nasal cannula high flow, saturating around 93%. Chest x-ray is showing significant improvement with diuretics, and I increased his Lasix from 40 mg every 12 hours to 40 mg every 8 hours. His proBNP level was significantly elevated, and again the findings are findings of pulmonary edema rather than pneumonia. And it is likely cardiogenic in nature rather than noncardiogenic since the patient had a significant improvement with diuresis basically speaking overnight. Follow-up blood cultures have been negative initial blood cultures were positive for E. coli/ESBL. CBC is relatively normal today. Electrolytes are normal BUN is 23 creatinine is significantly improved down to 1.1, it was as high as 1.62 on presentation. 03/02/2018, patient remains in the intensive care unit, remains on relatively high flow nasal cannula about 9 L, O2 sats saturation is 95% presently. Patient is feeling better, his chest x-ray is improving, and his echocardiogram is consistent with LV dysfunction and ejection fraction of 25-50%. Patient continues to have significant urine output, his creatinine is holding 1.17 today. Chest x-ray is showing improvement in his pulmonary edema patient does not have pneumonia it is basically all pulmonary edema improved practically speaking in 2 days after the course of diuresis. And knowing that his BNP level was elevated, knowing that his echocardiogram showed LV dysfunction, this is clearly systolic congestive heart failure. Again no pneumonia whatsoever. WBC count today is 10.8 hemoglobin is 10.5. Electrolytes are normal bicarb is 30 BUN is 32 creatinine 1.17. I reviewed the echocardiogram, and his right atrial pressure was noted to be low, and I felt that the patient is probably on the dry side if any at this point. Hence I will cut down the Lasix to 20 mg twice a day instead of 3 times a day. Considering the patient remains on a relatively high flow nasal cannula, I plan to keep him in the ICU, and we'll likely arrange for transfer out of the ICU in the next 24 hours assuming the patient continues to do well. Chest x-ray was reviewed and discussed with the patient and his at bedside. Patient was reevaluated today on 03/03/2018, has been feeling better over the last couple of days, breathing a lot easier, remains on high flow nasal cannula , pulse ox is 97%. No chest x-ray was done, but clinically the patient is improving. Less shortness of breath, no cough no wheezing no nausea no vomiting no abdominal pain. Patient's labs were all reviewed, renal functioning is improving. Hemoglobin is holding at 10.9 WBC count is 8.6. Blood sugars seem to be under control. And I plan to repeat a chest x-ray tomorrow. Patient was reevaluated today on 03/04/2018, he remains in the ICU but he is basically an overflow from selective. Doing well, down to few liters nasal cannula, O2 saturation is 98%. No cough no wheezing no shortness of breath, his renal functioning is a bit worse today, his chest x-ray showed near complete resolution of his congestive heart failure, small tiny pleural effusions remain, hence I recommended we cut down the Lasix to 40 mg once daily instead of twice daily. CBC showed a hemoglobin of 10.5 WBC count is 8.5. BUN is 38 creatinine 1.26. Patient remains on antibiotics for his E. coli sepsis and septic shock. Remains on GI and DVT prophylaxis. And again the Lasix dose was cut down to 40 mg once daily. We could potentially switch that to oral tomorrow. Objective - Vital Signs Vital signs: Vital Signs Temp 97.5 F L 03/04/18 04:00 Pulse 63 03/04/18 08:00 Resp 15 03/04/18 08:00 BP 98/66 03/04/18 08:00 Pulse Ox 97 03/04/18 08:00 Intake & Output 03/03/18 03/04/18 03/04/18 18:59 06:59 18:59 Intake Total 310 1350 100 Output Total 1950 2850 250 Balance -1640 -1500 -150 Weight 112.7 kg 114.8 kg Intake: IV 210 240 100 Meropenem 1 gm In Sodium 100 Chloride 0.9% 100 ml @ 200 mls/hr IVPB Q8H [facility] Rx#:[id number] Sodium Chloride 0.9% 1, 110 240 100 000 ml @ 20 mls/hr IV . Q24H [facility] Rx#:[id number] Oral 100 1010 Lipid 100 Meropenem 1 gm In Sodium 100 Chloride 0.9% 100 ml @ 200 mls/hr IVPB Q8H [facility] Rx#:[id number] Output: Urine 1950 2850 250 Other: Voiding Method Indwelling Catheter Indwelling Catheter # Bowel Movements 1 - Exam General appearance: Revealed an 82-year-old white male, obese, in no distress, however he is now on 4 L nasal cannula Head exam: atraumatic, normocephalic, Eye exam: normal appearance, PERRL, EOMI. Absent: scleral icterus, conjunctival injection, periorbital swelling ENT exam: normal exam, mucous membranes moist Neck exam: normal inspection. Absent: tenderness, meningismus, lymphadenopathy Respiratory exam: Symmetrical chest expansion, clear breath sound bilaterally, no crackles, no rhonchi and no wheezes. Cardiovascular Exam: normal rhythm, tachycardia, normal heart sounds. No murmur, no rubs. GI/Abdominal exam: Obese, soft, normal bowel sounds. Negative rebound, guarding , positive bowel sounds Extremities exam: normal inspection, full ROM, normal capillary refill. 1+ bipedal edema. Neurological exam: alert, oriented X3, CN II-XII intact Psychiatric exam: normal affect, normal mood Skin exam: Present: warm, dry, intact, normal color. No evidence of erythema or rashes. - Labs CBC & Chem 7: 03/04/18 04:36 03/04/18 04:36 Labs: Abnormal Lab Results - Last 24 Hours (Table) 03/03/18 03/03/18 03/03/18 Range/Units 12:13 17:19 20:47 RBC (4.30-5.90) m/uL Hgb (13.0-17.5) gm/dL Hct (39.0-53.0) % RDW (11.5-15.5) % Lymphocytes # (1.0-4.8) k/uL Chloride (98-107) mmol/L Carbon Dioxide (22-30) mmol/L BUN (9-20) mg/dL Creatinine (0.66-1.25) mg/dL Glucose (74-99) mg/dL POC Glucose (mg/dL) 146 H 114 H 132 H (75-99) mg/dL 03/04/18 03/04/18 03/04/18 Range/Units 04:36 04:36 07:04 RBC 3.56 L (4.30-5.90) m/uL Hgb 10.5 L (13.0-17.5) gm/dL Hct 33.1 L (39.0-53.0) % RDW 16.3 H (11.5-15.5) % Lymphocytes # 0.7 L (1.0-4.8) k/uL Chloride 97 L (98-107) mmol/L Carbon Dioxide 33 H (22-30) mmol/L BUN 38 H (9-20) mg/dL Creatinine 1.26 H (0.66-1.25) mg/dL Glucose 139 H (74-99) mg/dL POC Glucose (mg/dL) 111 H (75-99) mg/dL Microbiology - Last 24 Hours (Table) 02/28/18 04:22 Blood Culture - Preliminary Blood No Growth after 96 hours 02/27/18 09:52 Blood Culture - Preliminary Blood No Growth after 96 hours Assessment and Plan Assessment: Impression: 1 acute sepsis secondary to acute urinary tract infection secondary to E. coli. ESBL, remains on Merrem and he would likely have met him on outpatient basis, a PICC line was already established. 2 status post PICC line placement for IV antibiotics on outpatient basis. 3 acute kidney injury secondary to sepsis. Creatinine today is 1.26 4 acute pulmonary edema and systolic dysfunction, echocardiogram and elevated BNP confirmed the findings. 5 history of obstructive sleep apnea normally on BiPAP at home.continue BiPAP during sleep type while inpatient. 6 acute hypoxic respiratory failure secondary to sepsis, pulmonary edema secondary to systolic congestive heart failure, this is based on the echocardiogram findings. And elevated BNP level. 7 prostate cancer and previous radiation cystitis. 8 benign essential hypertension 9 type 2 diabetes 10 previous CABG and previous aortic valve replacement 11 hyperlipidemia 12 obstructive sleep apnea syndrome. Recommendation: Continue diuretics, continue antibiotics, continue his cardiac meds, continue to monitor his sugars and address accordingly with insulin, continue to monitor blood pressure, continue CPAP at night, continue oxygen to maintain O2 saturation above 90% and titrate accordingly. Continue to monitor renal status, possible discharge planning in the next 48 hours. Time with Patient: Less than 30
[2018-03-04 12:09] LABS: Glucose,Whole Blood 121 mg/dL (75-99)
[2018-03-04] MEDS: FERROUS SULFATE 325 MG TAB PO SCH (12:54)
[2018-03-04] MEDS: MULTIVITAMINS, THERA 1 EACH TAB PO SCH (12:54)
[2018-03-04] MEDS: SODIUM CHLORIDE 0.9% 1,000 ML IV SCH (12:57)
[2018-03-04 16:47] LABS: Glucose,Whole Blood 191 mg/dL (75-99)
[2018-03-04 20:39] LABS: Glucose,Whole Blood 155 mg/dL (75-99)
--- NOTE | 2018-03-04 21:29 | P.PN ---
Subjective Progress Note Date: 03/04/18 his is an 82-year-old male patient of Dr. Self with past medical history significant for prostate cancer status post radiation therapy, coronary artery disease status post 3 vessel CABG and aortic valve replacement, diabetes mellitus type 2 insulin requiring, hypertension, hyperlipidemia. Patient came into the emergency department at [facility] yesterday because of generalized weakness and not feeling well, patient stated that he woke up on Tuesday and he had chills and went to bed for the next 2 days and did not do much, then tried to get out of bed when he slid down and could not get up so his called EMS and was brought to the ER he was evaluated in the ER and he was found to have a mild leukocytosis and a UTI for which she was admitted to the hospital for IV fluid resuscitation as well as IV antibiotic and urine culture and blood culture were sent, ID consultation was obtained from . 02/27: During the night, T-Team was called because patient's pulse ox dropped to 70s, he was diaphoretic and feeling short of breath with heart rate in the 150s and temperature 101.9. EKG was sinus tachycardia. He was transferred to the intensive care unit. He was given half liter of IV fluids but previously had received 3.5 L of IV fluid. Ortiz catheter was placed. Blood culture is positive for E. coli and urine cultures gram-negative bacilli. Repeat blood culture ordered for today. Patient has been seen and followed by Dr. Block. Patient is currently on meropenem. Renal ultrasound reveals renal cyst. Largest on the left measuring 3 cm. Minimal ascites adjacent to the liver. No evidence of hydronephrosis. The patient had a total of 3 L urine output yesterday to 30 had 1 L this morning. He was given IV Lasix 40 mg once today and 60 mg yesterday once. Patient states that he is feeling much better from yesterday. His breathing is much more stable and he is flat in bed right now on BiPAP. White count is 9.8, hemoglobin 10.2, creatinine 1.58. 02/28: Patient is currently on BiPAP with FiO2 of 50% and pulse ox 93%. Vital signs at been stable and afebrile. White count is 9, creatinine 1.33. Repeat blood culture drawn yesterday as it is received. Initial blood and urine culture are positive for ESBL E. coli. Patient is currently on meropenem and followed by Dr. Block. Ortiz catheter remains in place, patient had a bowel movement yesterday. Patient states breathing is better today. He is currently on airflo which she seems to be tolerating and pulse ox is 93%. He did have one and half liters urine output this morning. Midline is scheduled for tomorrow. Patient wishes to be a DO NOT INTUBATE. 03/01: Patient remains in the intensive care unit currently on high flow nasal cannula pulse oxing 91 and 94%. Patient states that he is feeling better each day. Extremity edema is decreased. He has Ortiz remains in place with good urine output. He is currently on Lasix 40 mg every 12 hours IV. He did have a bowel movement this morning. Patient has not been out of bed since admission. PT and OT on. Case management has met with patient for planned for discharge to [facility]. Plan is to increase oral diet, increase activity. White count is normal, hemoglobin 11.1, creatinine 1.10. Blood sugars are running in the 150s and 160s. Repeat chest x-ray showing improvement in aeration. Patient is scheduled for midline placement and is currently on meropenem. 03/02: Patient remains in intensive care unit. He is currently pulse oxing 95- 97% on 13 L high flow nasal cannula. He states his breathing is better today. He has been maintained on nasal cannula through the night. He did get up in a chair yesterday. He is down 2.6 kg since yesterday. WBC is 10.8, hemoglobin 10.5, creatinine 1.17. Blood sugars been running between 147 and 198. Repeat chest x-ray shows diffuse right lung opacities occasional slightly improving. Resolving atypical pulmonary edema or pneumonia be considered. Minimal bilateral pleural effusions present. Echocardiogram reveals EF of 25-30% with moderate concentric left hypertrophy, LV wall motion is akinetic, elderly mildly dilated, mild regurgitation of bile prosthetic aortic valve, mild mitral regurgitation, mild tricuspid regurgitation. Patient is currently on meropenem and plan is for IV Invanz for total therapy course of 2 weeks. 03/03: Patient is found sitting up in a chair. He is currently on high flow nasal cannula at 10 L pulse oxing 97%. Patient is scheduled for transfer to cardiac stepdown unit today. He has been afebrile, hemoglobin 10.9, white count 8.6, creatinine 1.22. Blood sugars running between 131 and 182. His hemoglobin A1c was 6.3. Repeat blood cultures remain with no growth. Midline has been placed. Anticipate discharge to [facility] on Tuesday. atient is doing better, no hypotensive events no dizziness no orpnthopea. vitals are stable, eating without difficulties. no new concerns today, anticipating rehab discahrge on tuesday to subacute facility. edema noted on exam. diuretics in place. Objective - Vital Signs Vital signs: Vital Signs Temp 98.3 F 03/04/18 12:00 Pulse 59 L 03/04/18 12:00 Resp 19 03/04/18 12:00 BP 107/74 03/04/18 12:00 Pulse Ox 94 L 03/04/18 12:00 Intake & Output 03/03/18 03/04/18 03/04/18 18:59 06:59 18:59 Intake Total 310 1350 180 Output Total 1950 2850 525 Balance -1640 -1500 -345 Weight 112.7 kg 114.8 kg Intake: IV 210 240 180 Meropenem 1 gm In Sodium 100 Chloride 0.9% 100 ml @ 200 mls/hr IVPB Q8H [facility] Rx#:[id number] Sodium Chloride 0.9% 1, 110 240 180 000 ml @ 20 mls/hr IV . Q24H [facility] Rx#:[id number] Oral 100 1010 Lipid 100 Meropenem 1 gm In Sodium 100 Chloride 0.9% 100 ml @ 200 mls/hr IVPB Q8H [facility] Rx#:[id number] Output: Urine 1950 2850 525 Other: Voiding Method Indwelling Catheter Indwelling Catheter Indwelling Catheter # Bowel Movements 1 - Constitutional General appearance: Present: cooperative, obese - EENT Eyes: Present: anicteric sclerae, EOMI, PERRLA, dentition normal, normal appearance ENT: Present: NA/AT, normal oropharynx - Neck Neck: Present: normal ROM - Respiratory Respiratory: bilateral: CTA, negative: diminished, dullness, wheezing, prolonged expiration - Cardiovascular Rhythm: regular Heart sounds: normal: S1, S2 Abnormal Heart Sounds: Absent: systolic murmur, diastolic murmur, rub, S3 Gallop , S4 Gallop, click, other - Gastrointestinal General gastrointestinal: Present: normal bowel sounds, soft - Integumentary Integumentary: Present: normal, normal turgor - Neurologic Neurologic: Present: CNII-XII intact - Musculoskeletal Musculoskeletal: Present: gait normal, strength equal bilaterally - Psychiatric Psychiatric: Present: A&O x's 3, appropriate affect, intact judgment & insight - Labs CBC & Chem 7: 03/04/18 04:36 03/04/18 04:36 Labs: Abnormal Lab Results - Last 24 Hours (Table) 03/03/18 03/03/18 03/04/18 Range/Units 17:19 20:47 04:36 RBC 3.56 L (4.30-5.90) m/uL Hgb 10.5 L (13.0-17.5) gm/dL Hct 33.1 L (39.0-53.0) % RDW 16.3 H (11.5-15.5) % Lymphocytes # 0.7 L (1.0-4.8) k/uL Chloride (98-107) mmol/L Carbon Dioxide (22-30) mmol/L BUN (9-20) mg/dL Creatinine (0.66-1.25) mg/dL Glucose (74-99) mg/dL POC Glucose (mg/dL) 114 H 132 H (75-99) mg/dL 03/04/18 03/04/18 03/04/18 Range/Units 04:36 07:04 11:58 RBC (4.30-5.90) m/uL Hgb (13.0-17.5) gm/dL Hct (39.0-53.0) % RDW (11.5-15.5) % Lymphocytes # (1.0-4.8) k/uL Chloride 97 L (98-107) mmol/L Carbon Dioxide 33 H (22-30) mmol/L BUN 38 H (9-20) mg/dL Creatinine 1.26 H (0.66-1.25) mg/dL Glucose 139 H (74-99) mg/dL POC Glucose (mg/dL) 111 H 121 H (75-99) mg/dL Microbiology - Last 24 Hours (Table) 02/27/18 09:52 Blood Culture - Preliminary Blood No Growth after 120 hours 02/28/18 04:22 Blood Culture - Preliminary Blood No Growth after 96 hours Assessment and Plan Plan: 1. ESBL E. coli UTI with E. coli sepsis and septic shock. Continue IV antibiotic in the form of meropenem, urine culture, blood culture as above, consult Dr. Block is appreciated. Midline placed. invanz planned for 2 wks per ID 2. Acute hypoxic respiratory failure requiring BiPAP secondary to sepsis, pulmonary edema with possible acute systolic heart failure and possible pneumonia. Patient is currently on high flow nasal cannula at 10 L, continue Solu-Medrol 40 mg IV every 12hours, Lasix 40 mg IV every daily, daily weights and I&O 3. Diabetes mellitus type 2, insulin requiring. Continue Janumet daily. 4. Hypertension. Continue lisinopril 5 mg at bedtime, off Lopressor. 5. CAD status post CABG. Continue Lipitor 10 mg orally once every day. 6. Status post aortic valve replacement. Stable. 7. Hyperlipidemia. Continue Lipitor 10 mg at bedtime. 8. Acute kidney injury. repeat labs in the morning. 9. Anemia. Probably chronic. Monitor CBC. 10. Gastrointestinal prophylaxis. Continue Protonix 40 mg orally once every day. 11. DVT prophylaxis. ANGELINA belle and SCDs. 12. 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 Continue Myrbetriq 50 mg daily. 13. History of obstructive sleep apnea normally on BiPAP at home. CODE STATUS: DO NOT INTUBATE
[2018-03-04] MEDS: CALCIUM CARB-VIT D 500MG-200UN 1 EACH TAB PO SCH (21:39)
[2018-03-04] MEDS: ATORVASTATIN 10 MG TAB PO SCH (21:40)
[2018-03-04] MEDS: metFORMIN 500 MG TAB PO SCH (21:40)
[2018-03-04] MEDS: LINAGLIPTIN 5 MG TABLET PO SCH (21:40)
[2018-03-04] MEDS: LISINOPRIL 5 MG TAB PO SCH (21:40)
[2018-03-05 04:52] LABS: Anisocytosis Slight; Basophils % (A) 0 %; Eosinophils # (A) 0.1 k/uL (0-0.7); Eosinophils % (A) 1 %; HCT 32.4 % (39.0-53.0); HGB 10.2 gm/dL (13.0-17.5); Lymphocytes # (A) 0.6 k/uL (1.0-4.8); Lymphocytes % (A) 7 %; MCH 29.5 pg (25.0-35.0); MCHC 31.4 g/dL (31.0-37.0); MCV 93.8 fL (80.0-100.0); Mean Platelet Volume 8.4; Monocytes # (A) 0.2 k/uL (0-1.0); Monocytes % (A) 3 %; Neutrophils # (A) 7.8 k/uL (1.3-7.7); Neutrophils % (A) 89 %; Platelet Count 185 k/uL (150-450); RBC 3.46 m/uL (4.30-5.90); RDW 16.3 % (11.5-15.5); WBC 8.8 k/uL (3.8-10.6)
[2018-03-05 05:07] LABS: Albumin 2.9 g/dL (3.5-5.0); Calcium 8.6 mg/dL (8.4-10.2); Total Bilirubin 0.4 mg/dL (0.2-1.3); Total Protein 5.9 g/dL (6.3-8.2)
[2018-03-05 07:16] LABS: Glucose,Whole Blood 126 mg/dL (75-99)
[2018-03-05] MEDS: MEROPENEM 1 GM in SODIUM CHLORIDE 0.9% 100 ML IVPB SCH ×4 (07:59→22:51)
[2018-03-05] MEDS ORDERED: FUROSEMIDE 10 MG/ML 4 ML VIAL IV SCH (09:00)
[2018-03-05] MEDS: INSULIN ASPART 100 UNIT/ML 1 ML 10 ML VIAL SQ SCH ×4 (09:05→20:18)
[2018-03-05] MEDS: PANTOPRAZOLE 40 MG TABLET PO SCH ×2 (09:22→17:58)
[2018-03-05] MEDS: methylPREDNISolone SOD SUCCI 40 MG/ML 1 ML VIAL IV SCH (09:22)
[2018-03-05] MEDS: SUCRALFATE 1 GM TAB PO SCH ×2 (09:22→17:58)
[2018-03-05] MEDS: TAMSULOSIN 0.4 MG CAP.ER.24H PO SCH (09:22)
[2018-03-05] MEDS: PATIENT'S OWN (Mirabegron [Myrbetriq] 50 MG) PO SCH (09:23)
[2018-03-05] MEDS: DOCUSATE 100 MG CAP PO SCH ×2 (09:23→20:17)
[2018-03-05] MEDS: ENOXAPARIN 40 MG/0.4 ML SYRINGE SQ SCH (09:23)
[2018-03-05] MEDS: METOPROLOL TARTRATE 25 MG TAB PO SCH ×2 (09:35→20:18)
[2018-03-05] MEDS: DULoxetine HCL 30 MG CAPSULE.DR PO SCH (09:35)
[2018-03-05 12:07] LABS: Glucose,Whole Blood 154 mg/dL (75-99)
--- NOTE | 2018-03-05 12:25 | P.PN ---
Subjective Progress Note Date: 03/05/18 Principal diagnosis: Acute sepsis secondary to acute urinary tract infection secondary to ESBL E. coli. This is an 82-year-old white male with history of multiple medical problems including coronary artery disease and previous CABG 3, previous aortic valve replacement, type 2 diabetes, hypertension, prostate cancer status post radiation therapy, and recurrent urinary tract infections. Patient presented to the ER last night complaining of few days' history of generalized weakness, not feeling well, also complaining of chills, upon evaluation in the ER, patient was noted to have leukocytosis, and evidence of urinary tract infection. Patient was admitted, placed empirically on antibiotics, he is now on Merrem as recommended by the infectious disease physician on the case, and his blood cultures came back positive for E. coli, urine cultures came back positive for E. coli. Patient received fluid boluses, and his chest x-ray went on to show evidence of interstitial edema. He did not require any pressors, presently on diuretics for what seems to be interstitial edema. This could be cardiogenic or noncardiogenic in nature at this point. Patient is requiring to be on BiPAP, he is on 50% FiO2, IPAP of 12 and EPAP of 6. Presently in the ICU on BiPAP. Patient was reevaluated today in the ICU, hemodynamically stable, remains on high flow oxygen at 80% FiO2, and 65 L/m using airvo. Chest x-ray is showing worsening edema, possibility of pneumonia is not entirely ruled out, but the findings are mostly findings of right sided pulmonary edema./Unilateral. Patient remains on Merrem as per infectious disease on the case. Remains short of breath, diffuse rhonchi and wheezes noted bilaterally especially on the right side. WBC count is 9 hemoglobin is 10.5, electrolytes are normal, BUN is 18 and creatinine is improved to 1.33 today. Considering his lung findings and his symptoms, I will go ahead and recommend dose of Lasix which was given, I have also recommended adding Solu-Medrol. And I will maintain the patient on Lasix at 40 mg IV push every 12 hours. In the meantime patient will remain on high flow oxygen. On 03/01/2018, patient remains in the intensive care unit, we were able to get him down to 15 L nasal cannula high flow, saturating around 93%. Chest x-ray is showing significant improvement with diuretics, and I increased his Lasix from 40 mg every 12 hours to 40 mg every 8 hours. His proBNP level was significantly elevated, and again the findings are findings of pulmonary edema rather than pneumonia. And it is likely cardiogenic in nature rather than noncardiogenic since the patient had a significant improvement with diuresis basically speaking overnight. Follow-up blood cultures have been negative initial blood cultures were positive for E. coli/ESBL. CBC is relatively normal today. Electrolytes are normal BUN is 23 creatinine is significantly improved down to 1.1, it was as high as 1.62 on presentation. 03/02/2018, patient remains in the intensive care unit, remains on relatively high flow nasal cannula about 9 L, O2 sats saturation is 95% presently. Patient is feeling better, his chest x-ray is improving, and his echocardiogram is consistent with LV dysfunction and ejection fraction of 25-50%. Patient continues to have significant urine output, his creatinine is holding 1.17 today. Chest x-ray is showing improvement in his pulmonary edema patient does not have pneumonia it is basically all pulmonary edema improved practically speaking in 2 days after the course of diuresis. And knowing that his BNP level was elevated, knowing that his echocardiogram showed LV dysfunction, this is clearly systolic congestive heart failure. Again no pneumonia whatsoever. WBC count today is 10.8 hemoglobin is 10.5. Electrolytes are normal bicarb is 30 BUN is 32 creatinine 1.17. I reviewed the echocardiogram, and his right atrial pressure was noted to be low, and I felt that the patient is probably on the dry side if any at this point. Hence I will cut down the Lasix to 20 mg twice a day instead of 3 times a day. Considering the patient remains on a relatively high flow nasal cannula, I plan to keep him in the ICU, and we'll likely arrange for transfer out of the ICU in the next 24 hours assuming the patient continues to do well. Chest x-ray was reviewed and discussed with the patient and his at bedside. Patient was reevaluated today on 03/03/2018, has been feeling better over the last couple of days, breathing a lot easier, remains on high flow nasal cannula , pulse ox is 97%. No chest x-ray was done, but clinically the patient is improving. Less shortness of breath, no cough no wheezing no nausea no vomiting no abdominal pain. Patient's labs were all reviewed, renal functioning is improving. Hemoglobin is holding at 10.9 WBC count is 8.6. Blood sugars seem to be under control. And I plan to repeat a chest x-ray tomorrow. Patient was reevaluated today on 03/04/2018, he remains in the ICU but he is basically an overflow from selective. Doing well, down to few liters nasal cannula, O2 saturation is 98%. No cough no wheezing no shortness of breath, his renal functioning is a bit worse today, his chest x-ray showed near complete resolution of his congestive heart failure, small tiny pleural effusions remain, hence I recommended we cut down the Lasix to 40 mg once daily instead of twice daily. CBC showed a hemoglobin of 10.5 WBC count is 8.5. BUN is 38 creatinine 1.26. Patient remains on antibiotics for his E. coli sepsis and septic shock. Remains on GI and DVT prophylaxis. And again the Lasix dose was cut down to 40 mg once daily. We could potentially switch that to oral tomorrow. Reevaluated today on 03/05/2018, patient is doing great, asymptomatic, sitting at bedside chair, took him off oxygen, and he saturating in the mid 90s. Patient feels much better, all his labs were reviewed including his renal profile which is almost back to normal. Remains on diuretics, and he could have Lasix orally now instead of IV push, chest x-ray yesterday showed complete clearance of his pulmonary edema, and at this point I believe the patient could be seriously considered for discharge home on IV antibiotics, oral diuretics, and his usual cardiac meds, could have follow-up with me on outpatient basis. His creatinine today is 1.01. WBC count is 8.8. Hemoglobin is 10.2. Objective - Vital Signs Vital signs: Vital Signs Temp 97.8 F 03/05/18 08:00 Pulse 62 03/05/18 08:00 Resp 20 03/05/18 08:00 BP 106/63 03/05/18 08:00 Pulse Ox 96 03/05/18 08:39 Intake & Output 03/04/18 03/05/18 03/05/18 18:59 06:59 18:59 Intake Total 340 740 80 Output Total 750 875 240 Balance -410 -135 -160 Weight 114.8 kg 115.4 kg 115.4 kg Intake: IV 340 340 80 Meropenem 1 gm In Sodium 100 100 Chloride 0.9% 100 ml @ 200 mls/hr IVPB Q8H [facility] Rx#:[id number] Sodium Chloride 0.9% 1, 240 240 80 000 ml @ 20 mls/hr IV . Q24H [facility] Rx#:[id number] Oral 400 Output: Urine 750 875 240 Other: Voiding Method Indwelling Catheter Indwelling Catheter # Bowel Movements 1 - Exam General appearance: Revealed an 82-year-old white male, obese, in no distress, however he is now on room air. Head exam: atraumatic, normocephalic, Eye exam: normal appearance, PERRL, EOMI. Absent: scleral icterus, conjunctival injection, periorbital swelling ENT exam: normal exam, mucous membranes moist Neck exam: normal inspection. Absent: tenderness, meningismus, lymphadenopathy Respiratory exam: Symmetrical chest expansion, clear breath sound bilaterally, no crackles, no rhonchi and no wheezes. Cardiovascular Exam: normal rhythm, tachycardia, normal heart sounds. No murmur, no rubs. GI/Abdominal exam: Obese, soft, normal bowel sounds. Negative rebound, guarding , positive bowel sounds Extremities exam: No clubbing, no edema, no cyanosis.. Neurological exam: No gross focal neurologic deficit Psychiatric exam: normal affect, normal mood Skin exam: Present: warm, dry, intact, normal color. No evidence of erythema or rashes. - Labs CBC & Chem 7: 03/05/18 04:32 03/05/18 04:32 Labs: Abnormal Lab Results - Last 24 Hours (Table) 03/04/18 03/04/18 03/05/18 Range/Units 16:36 20:28 04:32 RBC 3.46 L (4.30-5.90) m/uL Hgb 10.2 L (13.0-17.5) gm/dL Hct 32.4 L (39.0-53.0) % RDW 16.3 H (11.5-15.5) % Neutrophils # 7.8 H (1.3-7.7) k/uL Lymphocytes # 0.6 L (1.0-4.8) k/uL Carbon Dioxide (22-30) mmol/L BUN (9-20) mg/dL Glucose (74-99) mg/dL POC Glucose (mg/dL) 191 H 155 H (75-99) mg/dL ALT (21-72) U/L Total Protein (6.3-8.2) g/dL Albumin (3.5-5.0) g/dL 03/05/18 03/05/18 03/05/18 Range/Units 04:32 07:01 11:56 RBC (4.30-5.90) m/uL Hgb (13.0-17.5) gm/dL Hct (39.0-53.0) % RDW (11.5-15.5) % Neutrophils # (1.3-7.7) k/uL Lymphocytes # (1.0-4.8) k/uL Carbon Dioxide 32 H (22-30) mmol/L BUN 34 H (9-20) mg/dL Glucose 142 H (74-99) mg/dL POC Glucose (mg/dL) 126 H 154 H (75-99) mg/dL ALT 84 H (21-72) U/L Total Protein 5.9 L (6.3-8.2) g/dL Albumin 2.9 L (3.5-5.0) g/dL Microbiology - Last 24 Hours (Table) 02/27/18 09:52 Blood Culture - Final Blood No Growth after 144 hours 02/28/18 04:22 Blood Culture - Preliminary Blood No Growth after 120 hours Assessment and Plan Assessment: Impression: 1 acute sepsis secondary to acute urinary tract infection secondary to E. coli. ESBL, remains on Merrem and he would likely have met him on outpatient basis, a PICC line was already established. 2 status post PICC line placement for IV antibiotics on outpatient basis. 3 acute kidney injury secondary to sepsis. Creatinine today is 1.01 4 acute pulmonary edema and systolic dysfunction, echocardiogram and elevated BNP confirmed the findings. 5 history of obstructive sleep apnea normally on BiPAP at home.continue BiPAP during sleep type while inpatient. 6 acute hypoxic respiratory failure secondary to sepsis, pulmonary edema secondary to systolic congestive heart failure, this is based on the echocardiogram findings. And elevated BNP level. 7 prostate cancer and previous radiation cystitis. 8 benign essential hypertension 9 type 2 diabetes 10 previous CABG and previous aortic valve replacement 11 hyperlipidemia 12 obstructive sleep apnea syndrome. Recommendation: Continue present meds, switched to oral medication including diuretics, however the patient will need to be on IV antibiotics via PICC line on outpatient basis, I will clear the patient from my perspective for discharge home today if possible. Plans are being made to discharge the patient to [facility], and I believe that would be appropriate for rehab. Follow -up with me on outpatient basis. Time with Patient: Less than 30
[2018-03-05] MEDS: FERROUS SULFATE 325 MG TAB PO SCH (12:33)
[2018-03-05] MEDS: MULTIVITAMINS, THERA 1 EACH TAB PO SCH (12:33)
[2018-03-05] MEDS: SODIUM CHLORIDE 0.9% 1,000 ML IV SCH (14:51)
[2018-03-05] MEDS: methylPREDNISolone 4 MG TAB TAPER PO SCH (14:53)
[2018-03-05 17:11] LABS: Glucose,Whole Blood 136 mg/dL (75-99)
[2018-03-05] MEDS: FUROSEMIDE 10 MG/ML 4 ML VIAL IV SCH (18:38)
[2018-03-05 20:15] LABS: Glucose,Whole Blood 323 mg/dL (75-99)
[2018-03-05] MEDS: metFORMIN 500 MG TAB PO SCH (20:17)
[2018-03-05] MEDS: CALCIUM CARB-VIT D 500MG-200UN 1 EACH TAB PO SCH (20:17)
[2018-03-05] MEDS: LISINOPRIL 5 MG TAB PO SCH (20:17)
[2018-03-05] MEDS: LINAGLIPTIN 5 MG TABLET PO SCH (20:17)
[2018-03-05] MEDS: ATORVASTATIN 10 MG TAB PO SCH (20:18)
[2018-03-05 21:08] LABS: Glucose,Whole Blood 183 mg/dL (75-99)
--- NOTE | 2018-03-05 21:27 | P.PN ---
Subjective Progress Note Date: 03/05/18 his is an 82-year-old male patient of Dr. Self with past medical history significant for prostate cancer status post radiation therapy, coronary artery disease status post 3 vessel CABG and aortic valve replacement, diabetes mellitus type 2 insulin requiring, hypertension, hyperlipidemia. Patient came into the emergency department at [facility] yesterday because of generalized weakness and not feeling well, patient stated that he woke up on Tuesday and he had chills and went to bed for the next 2 days and did not do much, then tried to get out of bed when he slid down and could not get up so his called EMS and was brought to the ER he was evaluated in the ER and he was found to have a mild leukocytosis and a UTI for which she was admitted to the hospital for IV fluid resuscitation as well as IV antibiotic and urine culture and blood culture were sent, ID consultation was obtained from . 02/27: During the night, T-Team was called because patient's pulse ox dropped to 70s, he was diaphoretic and feeling short of breath with heart rate in the 150s and temperature 101.9. EKG was sinus tachycardia. He was transferred to the intensive care unit. He was given half liter of IV fluids but previously had received 3.5 L of IV fluid. Ortiz catheter was placed. Blood culture is positive for E. coli and urine cultures gram-negative bacilli. Repeat blood culture ordered for today. Patient has been seen and followed by Dr. Block. Patient is currently on meropenem. Renal ultrasound reveals renal cyst. Largest on the left measuring 3 cm. Minimal ascites adjacent to the liver. No evidence of hydronephrosis. The patient had a total of 3 L urine output yesterday to 30 had 1 L this morning. He was given IV Lasix 40 mg once today and 60 mg yesterday once. Patient states that he is feeling much better from yesterday. His breathing is much more stable and he is flat in bed right now on BiPAP. White count is 9.8, hemoglobin 10.2, creatinine 1.58.pulmonary 02/28: Patient is currently on BiPAP with FiO2 of 50% and pulse ox 93%. Vital signs at been stable and afebrile. White count is 9, creatinine 1.33. Repeat blood culture drawn yesterday as it is received. Initial blood and urine culture are positive for ESBL E. coli. Patient is currently on meropenem and followed by Dr. Block. Ortiz catheter remains in place, patient had a bowel movement yesterday. Patient states breathing is better today. He is currently on airflo which she seems to be tolerating and pulse ox is 93%. He did have one and half liters urine output this morning. Midline is scheduled for tomorrow. Patient wishes to be a DO NOT INTUBATE. 03/01: Patient remains in the intensive care unit currently on high flow nasal cannula pulse oxing 91 and 94%. Patient states that he is feeling better each day. Extremity edema is decreased. He has Ortiz remains in place with good urine output. He is currently on Lasix 40 mg every 12 hours IV. He did have a bowel movement this morning. Patient has not been out of bed since admission. PT and OT on. Case management has met with patient for planned for discharge to [facility]. Plan is to increase oral diet, increase activity. White count is normal, hemoglobin 11.1, creatinine 1.10. Blood sugars are running in the 150s and 160s. Repeat chest x-ray showing improvement in aeration. Patient is scheduled for midline placement and is currently on meropenem. 03/02: Patient remains in intensive care unit. He is currently pulse oxing 95- 97% on 13 L high flow nasal cannula. He states his breathing is better today. He has been maintained on nasal cannula through the night. He did get up in a chair yesterday. He is down 2.6 kg since yesterday. WBC is 10.8, hemoglobin 10.5, creatinine 1.17. Blood sugars been running between 147 and 198. Repeat chest x-ray shows diffuse right lung opacities occasional slightly improving. Resolving atypical pulmonary edema or pneumonia be considered. Minimal bilateral pleural effusions present. Echocardiogram reveals EF of 25-30% with moderate concentric left hypertrophy, LV wall motion is akinetic, elderly mildly dilated, mild regurgitation of bile prosthetic aortic valve, mild mitral regurgitation, mild tricuspid regurgitation. Patient is currently on meropenem and plan is for IV Invanz for total therapy course of 2 weeks. 03/03: Patient is found sitting up in a chair. He is currently on high flow nasal cannula at 10 L pulse oxing 97%. Patient is scheduled for transfer to cardiac stepdown unit today. He has been afebrile, hemoglobin 10.9, white count 8.6, creatinine 1.22. Blood sugars running between 131 and 182. His hemoglobin A1c was 6.3. Repeat blood cultures remain with no growth. Midline has been placed. Anticipate discharge to [facility] on Tuesday. atient is doing better, no hypotensive events no dizziness no orpnthopea. vitals are stable, eating without difficulties. no new concerns today, anticipating rehab discahrge on tuesday to subacute facility. edema noted on exam. diuretics in place. 03/05 patient continue to improve without any difficulties today, vitals stable with diuretics, edema improving pulmonary is pleased with progress and we are anticipating discharge to [facility] as planned on tuesday Objective - Vital Signs Vital signs: Vital Signs Temp 97.9 F 03/05/18 16:00 Pulse 57 L 03/05/18 16:00 Resp 16 03/05/18 16:00 BP 118/63 03/05/18 16:00 Pulse Ox 95 03/05/18 16:00 Intake & Output 03/04/18 03/05/18 03/05/18 18:59 06:59 18:59 Intake Total 340 740 340 Output Total 750 875 990 Balance -410 -135 -650 Weight 114.8 kg 115.4 kg 115.4 kg Intake: IV 340 340 340 Meropenem 1 gm In Sodium 100 100 100 Chloride 0.9% 100 ml @ 200 mls/hr IVPB Q8H DELMY Rx#:[id number] Sodium Chloride 0.9% 1, 240 240 240 000 ml @ 20 mls/hr IV . Q24H DELMY Rx#:[id number] Oral 400 Output: Urine 750 875 990 Other: Voiding Method Indwelling Catheter Indwelling Catheter Indwelling Catheter # Bowel Movements 1 - Constitutional General appearance: Present: cooperative, no acute distress - EENT Eyes: Present: anicteric sclerae, EOMI, dentition normal - Neck Neck: Present: normal ROM - Respiratory Respiratory: bilateral: CTA, negative: diminished, dullness, rales - Cardiovascular Rhythm: regular Heart sounds: normal: S1, S2 Abnormal Heart Sounds: Absent: systolic murmur, diastolic murmur, rub, S3 Gallop , S4 Gallop, click, other - Gastrointestinal General gastrointestinal: Present: normal bowel sounds, soft - Integumentary Integumentary: Present: decreased turgor, normal - Musculoskeletal Musculoskeletal: Present: gait normal, strength equal bilaterally - Labs CBC & Chem 7: 03/05/18 04:32 03/05/18 04:32 Labs: Abnormal Lab Results - Last 24 Hours (Table) 03/04/18 03/04/18 03/05/18 Range/Units 16:36 20:28 04:32 RBC 3.46 L (4.30-5.90) m/uL Hgb 10.2 L (13.0-17.5) gm/dL Hct 32.4 L (39.0-53.0) % RDW 16.3 H (11.5-15.5) % Neutrophils # 7.8 H (1.3-7.7) k/uL Lymphocytes # 0.6 L (1.0-4.8) k/uL Carbon Dioxide (22-30) mmol/L BUN (9-20) mg/dL Glucose (74-99) mg/dL POC Glucose (mg/dL) 191 H 155 H (75-99) mg/dL ALT (21-72) U/L Total Protein (6.3-8.2) g/dL Albumin (3.5-5.0) g/dL 03/05/18 03/05/18 03/05/18 Range/Units 04:32 07:01 11:56 RBC (4.30-5.90) m/uL Hgb (13.0-17.5) gm/dL Hct (39.0-53.0) % RDW (11.5-15.5) % Neutrophils # (1.3-7.7) k/uL Lymphocytes # (1.0-4.8) k/uL Carbon Dioxide 32 H (22-30) mmol/L BUN 34 H (9-20) mg/dL Glucose 142 H (74-99) mg/dL POC Glucose (mg/dL) 126 H 154 H (75-99) mg/dL ALT 84 H (21-72) U/L Total Protein 5.9 L (6.3-8.2) g/dL Albumin 2.9 L (3.5-5.0) g/dL Microbiology - Last 24 Hours (Table) 02/27/18 09:52 Blood Culture - Final Blood No Growth after 144 hours 02/28/18 04:22 Blood Culture - Preliminary Blood No Growth after 120 hours Assessment and Plan Plan: 1. ESBL E. coli UTI with E. coli sepsis and septic shock. Continue IV antibiotic in the form of meropenem, urine culture, blood culture as above, consult Dr. Block is appreciated. Midline placed. invanz planned for 2 wks per ID 2. Acute hypoxic respiratory failure requiring BiPAP secondary to sepsis, pulmonary edema with possible acute systolic heart failure and possible pneumonia. Patient is currently on 3l nc. , continue Solu-Medrol discontinued. oral predni.sone Lasix 40 mg oral every daily, daily weights and I&O 3. Diabetes mellitus type 2, insulin requiring. Continue Janumet daily. 4. Hypertension. Continue lisinopril 5 mg at bedtime, off Lopressor. 5. CAD status post CABG. Continue Lipitor 10 mg orally once every day. 6. Status post aortic valve replacement. Stable. 7. Hyperlipidemia. Continue Lipitor 10 mg at bedtime. 8. Acute kidney injury. repeat labs in the morning. 9. Anemia. Probably chronic. Monitor CBC. 10. Gastrointestinal prophylaxis. Continue Protonix 40 mg orally once every day. 11. DVT prophylaxis. ANGELINA belle and SCDs. 12. 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 Continue Myrbetriq 50 mg daily. 13. History of obstructive sleep apnea normally on BiPAP at home. CODE STATUS: DO NOT INTUBATE
[2018-03-06 06:00] LABS: Glucose,Whole Blood 106 mg/dL (75-99)
[2018-03-06] MEDS: INSULIN ASPART 100 UNIT/ML 1 ML 10 ML VIAL SQ SCH ×2 (06:02→11:54)
[2018-03-06] MEDS: SUCRALFATE 1 GM TAB PO SCH (06:16)
[2018-03-06] MEDS: MEROPENEM 1 GM in SODIUM CHLORIDE 0.9% 100 ML IVPB SCH ×2 (06:16→14:05)
[2018-03-06] MEDS: PANTOPRAZOLE 40 MG TABLET PO SCH (06:16)
[2018-03-06 06:30] LABS: Anisocytosis Slight; Basophils % (A) 0 %; Eosinophils # (A) 0.1 k/uL (0-0.7); Eosinophils % (A) 1 %; HCT 32.8 % (39.0-53.0); HGB 10.7 gm/dL (13.0-17.5); Lymphocytes # (A) 0.8 k/uL (1.0-4.8); Lymphocytes % (A) 9 %; MCH 30.2 pg (25.0-35.0); MCHC 32.6 g/dL (31.0-37.0); MCV 92.6 fL (80.0-100.0); Mean Platelet Volume 8.4; Monocytes # (A) 0.3 k/uL (0-1.0); Monocytes % (A) 4 %; Neutrophils # (A) 8.1 k/uL (1.3-7.7); Neutrophils % (A) 86 %; Platelet Count 163 k/uL (150-450); RBC 3.54 m/uL (4.30-5.90); RDW 16.3 % (11.5-15.5); WBC 9.4 k/uL (3.8-10.6)
[2018-03-06 06:37] LABS: Calcium 8.6 mg/dL (8.4-10.2); Potassium 3.9 mmol/L (3.5-5.1); Total Bilirubin 0.3 mg/dL (0.2-1.3); Total Protein 5.9 g/dL (6.3-8.2)
[2018-03-06] MEDS: ENOXAPARIN 40 MG/0.4 ML SYRINGE SQ SCH (08:49)
[2018-03-06] MEDS: PATIENT'S OWN (Mirabegron [Myrbetriq] 50 MG) PO SCH (08:49)
[2018-03-06] MEDS: DOCUSATE 100 MG CAP PO SCH (08:50)
[2018-03-06] MEDS: ALLOPURINOL 300 MG TAB PO SCH (08:50)
[2018-03-06] MEDS: DULoxetine HCL 30 MG CAPSULE.DR PO SCH (08:50)
[2018-03-06] MEDS: TAMSULOSIN 0.4 MG CAP.ER.24H PO SCH (08:50)
[2018-03-06] MEDS: METOPROLOL TARTRATE 25 MG TAB PO SCH (08:50)
[2018-03-06] MEDS: methylPREDNISolone 4 MG TAB TAPER PO SCH (08:51)
[2018-03-06] MEDS ORDERED: FUROSEMIDE 40 MG TAB PO SCH (09:00)
[2018-03-06 11:24] LABS: Glucose,Whole Blood 86 mg/dL (75-99)
[2018-03-06 11:40] VITALS: PULSE 68; RESP 16; TEMP 98.7
[2018-03-06] MEDS: MULTIVITAMINS, THERA 1 EACH TAB PO SCH (13:14)
[2018-03-06] MEDS: FERROUS SULFATE 325 MG TAB PO SCH (13:15)
[2018-03-06 13:59] VITALS: BP 129/70
--- NOTE | 2018-03-06 14:12 | P.DS ---
Providers Date of admission: 02/25/18 18:20 Expected date of discharge: 03/06/18 Attending physician: Alfredo Self Consults: 02/25/18 19:09 Consult Physician Routine Consulting Provider: Charli Block Consult Reason/Comments: ID Do you want consulting provider notified?: Yes 02/26/18 22:00 Consult Physician Routine Consulting Provider: Nichol Felix Consult Reason/Comments: ICU Management Do you want consulting provider notified?: Already Contacted Primary care physician: Alfredo Self [facility] Course: his is an 82-year-old male patient of Dr. Self with past medical history significant for prostate cancer status post radiation therapy, coronary artery disease status post 3 vessel CABG and aortic valve replacement, diabetes mellitus type 2 insulin requiring, hypertension, hyperlipidemia. Patient came into the emergency department at [facility] yesterday because of generalized weakness and not feeling well, patient stated that he woke up on Tuesday and he had chills and went to bed for the next 2 days and did not do much, then tried to get out of bed when he slid down and could not get up so his called EMS and was brought to the ER he was evaluated in the ER and he was found to have a mild leukocytosis and a UTI for which she was admitted to the hospital for IV fluid resuscitation as well as IV antibiotic and urine culture and blood culture were sent, ID consultation was obtained from . 02/27: During the night, T-Team was called because patient's pulse ox dropped to 70s, he was diaphoretic and feeling short of breath with heart rate in the 150s and temperature 101.9. EKG was sinus tachycardia. He was transferred to the intensive care unit. He was given half liter of IV fluids but previously had received 3.5 L of IV fluid. Ortiz catheter was placed. Blood culture is positive for E. coli and urine cultures gram-negative bacilli. Repeat blood culture ordered for today. Patient has been seen and followed by Dr. Block. Patient is currently on meropenem. Renal ultrasound reveals renal cyst. Largest on the left measuring 3 cm. Minimal ascites adjacent to the liver. No evidence of hydronephrosis. The patient had a total of 3 L urine output yesterday to 30 had 1 L this morning. He was given IV Lasix 40 mg once today and 60 mg yesterday once. Patient states that he is feeling much better from yesterday. His breathing is much more stable and he is flat in bed right now on BiPAP. White count is 9.8, hemoglobin 10.2, creatinine 1.58.pulmonary 02/28: Patient is currently on BiPAP with FiO2 of 50% and pulse ox 93%. Vital signs at been stable and afebrile. White count is 9, creatinine 1.33. Repeat blood culture drawn yesterday as it is received. Initial blood and urine culture are positive for ESBL E. coli. Patient is currently on meropenem and followed by Dr. Block. Ortiz catheter remains in place, patient had a bowel movement yesterday. Patient states breathing is better today. He is currently on airflo which she seems to be tolerating and pulse ox is 93%. He did have one and half liters urine output this morning. Midline is scheduled for tomorrow. Patient wishes to be a DO NOT INTUBATE. 03/01: Patient remains in the intensive care unit currently on high flow nasal cannula pulse oxing 91 and 94%. Patient states that he is feeling better each day. Extremity edema is decreased. He has Ortiz remains in place with good urine output. He is currently on Lasix 40 mg every 12 hours IV. He did have a bowel movement this morning. Patient has not been out of bed since admission. PT and OT on. Case management has met with patient for planned for discharge to [facility]. Plan is to increase oral diet, increase activity. White count is normal, hemoglobin 11.1, creatinine 1.10. Blood sugars are running in the 150s and 160s. Repeat chest x-ray showing improvement in aeration. Patient is scheduled for midline placement and is currently on meropenem. 03/02: Patient remains in intensive care unit. He is currently pulse oxing 95- 97% on 13 L high flow nasal cannula. He states his breathing is better today. He has been maintained on nasal cannula through the night. He did get up in a chair yesterday. He is down 2.6 kg since yesterday. WBC is 10.8, hemoglobin 10.5, creatinine 1.17. Blood sugars been running between 147 and 198. Repeat chest x-ray shows diffuse right lung opacities occasional slightly improving. Resolving atypical pulmonary edema or pneumonia be considered. Minimal bilateral pleural effusions present. Echocardiogram reveals EF of 25-30% with moderate concentric left hypertrophy, LV wall motion is akinetic, elderly mildly dilated, mild regurgitation of bile prosthetic aortic valve, mild mitral regurgitation, mild tricuspid regurgitation. Patient is currently on meropenem and plan is for IV Invanz for total therapy course of 2 weeks. 03/03: Patient is found sitting up in a chair. He is currently on high flow nasal cannula at 10 L pulse oxing 97%. Patient is scheduled for transfer to cardiac stepdown unit today. He has been afebrile, hemoglobin 10.9, white count 8.6, creatinine 1.22. Blood sugars running between 131 and 182. His hemoglobin A1c was 6.3. Repeat blood cultures remain with no growth. Midline has been placed. Anticipate discharge to [facility] on Tuesday. atient is doing better, no hypotensive events no dizziness no orpnthopea. vitals are stable, eating without difficulties. no new concerns today, anticipating rehab discahrge on tuesday to subacute facility. edema noted on exam. diuretics in place. 03/05 patient continue to improve without any difficulties today, vitals stable with diuretics, edema improving pulmonary is pleased with progress and we are anticipating discharge to [facility] as planned on tuesday 03/06: Patient will be cleared for discharge to [facility] today in stable condition. Patient needs 1 more week of IV antibiotics which will be Invanz per Dr. Block. Discharge diagnoses: 1. ESBL E. coli UTI with E. coli sepsis and septic shock. 2. Acute hypoxic respiratory failure requiring BiPAP secondary to sepsis, pulmonary edema with possible acute systolic heart failure and possible pneumonia. 3. Diabetes mellitus type 2, insulin requiring. 4. Hypertension. 5. CAD status post CABG. 6. Status post aortic valve replacement. Stable. 7. Hyperlipidemia. 8. Acute kidney injury. 9. Anemia of chronic disease. 10. 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 11. History of obstructive sleep apnea normally on BiPAP at home. Discharge plan: [facility] Impression and plan of care have been directed as dictated by the signing physician. Amrita Núñez nurse practitioner acting as scribe for signing physician. Patient Condition at Discharge: Good Plan - Discharge Summary Discharge Rx Participant: No New Discharge Prescriptions: New Ertapenem [INVanz] 1 gm IVPB Q24H #7 bag Acetaminophen Tab [Tylenol] 650 mg PO Q6H PRN tab PRN Reason: Fever methylPREDNISolone Dose Pack [Medrol Dose Pack] 24 mg PO DAILY tab Continue Glucosam/Donnie-Msm1/C/Pardeep/Bosw [Glucosamine-Chondroitin Tablet] 1 tab PO HS DULoxetine HCL [Cymbalta] 30 mg PO DAILY Multivitamins, Thera [Multivitamin (formulary)] 1 tab PO HS Docusate [Colace] 100 mg PO BID Lisinopril [Zestril] 5 mg PO HS Allopurinol [Zyloprim] 300 mg PO Q48H Simvastatin [Zocor] 20 mg PO HS Metoprolol Tartrate 25 mg PO BID Tamsulosin [Flomax] 0.4 mg PO QAM sitaGLIPtin PHOS/metFORMIN HCL [Janumet 50-500 mg Tablet] 1 tab PO HS Mirabegron [Myrbetriq] 50 mg PO DAILY Omeprazole 20 mg PO BID Turmeric Root Extract [Turmeric] 500 mg PO DAILY Calcium Carbonate/Vitamin D3 [Calcium 600-Vit D3 200 Tablet] 1 tab PO HS Torsemide [Demadex] 40 mg PO BID Ferrous Sulfate [Iron (65 MG Elemental)] 325 mg PO DAILY Changed Gabapentin [Neurontin] 300 mg PO HS #0 Discharge Medication List Allopurinol [Zyloprim] 300 mg PO Q48H 03/01/17 [History] DULoxetine HCL [Cymbalta] 30 mg PO DAILY 03/01/17 [History] Docusate [Colace] 100 mg PO BID 03/01/17 [History] Glucosam/Donnie-Msm1/C/Pardeep/Bosw [Glucosamine-Chondroitin Tablet] 1 tab PO HS 03/06 [History] Lisinopril [Zestril] 5 mg PO HS 03/01/17 [History] Metoprolol Tartrate 25 mg PO BID 03/01/17 [History] Multivitamins, Thera [Multivitamin (formulary)] 1 tab PO HS 03/01/17 [History] Simvastatin [Zocor] 20 mg PO HS 03/01/17 [History] Tamsulosin [Flomax] 0.4 mg PO QAM 03/01/17 [History] Mirabegron [Myrbetriq] 50 mg PO DAILY 06/27/17 [History] Omeprazole 20 mg PO BID 06/27/17 [History] sitaGLIPtin PHOS/metFORMIN HCL [Janumet 50-500 mg Tablet] 1 tab PO HS 06/27/17 [ History] Calcium Carbonate/Vitamin D3 [Calcium 600-Vit D3 200 Tablet] 1 tab PO HS [History] Turmeric Root Extract [Turmeric] 500 mg PO DAILY 10/11/17 [History] Ferrous Sulfate [Iron (65 MG Elemental)] 325 mg PO DAILY 02/25/18 [History] Torsemide [Demadex] 40 mg PO BID 02/25/18 [History] Acetaminophen Tab [Tylenol] 650 mg PO Q6H PRN tab 03/06/18 [Rx] Ertapenem [INVanz] 1 gm IVPB Q24H #7 bag 03/06/18 [Rx] Gabapentin [Neurontin] 300 mg PO HS #0 03/06/18 [Rx] methylPREDNISolone Dose Pack [Medrol Dose Pack] 24 mg PO DAILY tab 03/06/18 [Rx ] Follow up Appointment(s)/Referral(s): Charli Block MD [STAFF PHYSICIAN] - 1 Week Alfredo Self MD [Primary Care Provider] - 1 Week (at [facility] ) Ambulatory/Diagnostic Orders: Complete Blood Count w/diff [LAB.AMB] Location: None Selected Comprehensive Metabolic Panel [LAB.AMB] Location: None Selected Activity/Diet/Wound Care/Special Instructions: [facility] IV ABX Discharge Disposition: TRANSFER TO SNF/ECF
--- NOTE | 2018-03-06 14:33 | P.PN ---
Subjective Progress Note Date: 03/06/18 Principal diagnosis: Acute sepsis secondary to acute urinary tract infection secondary to ESBL E. coli This is an 82-year-old white male with history of multiple medical problems including coronary artery disease and previous CABG 3, previous aortic valve replacement, type 2 diabetes, hypertension, prostate cancer status post radiation therapy, and recurrent urinary tract infections. Patient presented to the ER last night complaining of few days' history of generalized weakness, not feeling well, also complaining of chills, upon evaluation in the ER, patient was noted to have leukocytosis, and evidence of urinary tract infection. Patient was admitted, placed empirically on antibiotics, he is now on Merrem as recommended by the infectious disease physician on the case, and his blood cultures came back positive for E. coli, urine cultures came back positive for E. coli. Patient received fluid boluses, and his chest x-ray went on to show evidence of interstitial edema. He did not require any pressors, presently on diuretics for what seems to be interstitial edema. This could be cardiogenic or noncardiogenic in nature at this point. Patient is requiring to be on BiPAP, he is on 50% FiO2, IPAP of 12 and EPAP of 6. Presently in the ICU on BiPAP. Patient was reevaluated today in the ICU, hemodynamically stable, remains on high flow oxygen at 80% FiO2, and 65 L/m using airvo. Chest x-ray is showing worsening edema, possibility of pneumonia is not entirely ruled out, but the findings are mostly findings of right sided pulmonary edema./Unilateral. Patient remains on Merrem as per infectious disease on the case. Remains short of breath, diffuse rhonchi and wheezes noted bilaterally especially on the right side. WBC count is 9 hemoglobin is 10.5, electrolytes are normal, BUN is 18 and creatinine is improved to 1.33 today. Considering his lung findings and his symptoms, I will go ahead and recommend dose of Lasix which was given, I have also recommended adding Solu-Medrol. And I will maintain the patient on Lasix at 40 mg IV push every 12 hours. In the meantime patient will remain on high flow oxygen. On 03/01/2018, patient remains in the intensive care unit, we were able to get him down to 15 L nasal cannula high flow, saturating around 93%. Chest x-ray is showing significant improvement with diuretics, and I increased his Lasix from 40 mg every 12 hours to 40 mg every 8 hours. His proBNP level was significantly elevated, and again the findings are findings of pulmonary edema rather than pneumonia. And it is likely cardiogenic in nature rather than noncardiogenic since the patient had a significant improvement with diuresis basically speaking overnight. Follow-up blood cultures have been negative initial blood cultures were positive for E. coli/ESBL. CBC is relatively normal today. Electrolytes are normal BUN is 23 creatinine is significantly improved down to 1.1, it was as high as 1.62 on presentation. 03/02/2018, patient remains in the intensive care unit, remains on relatively high flow nasal cannula about 9 L, O2 sats saturation is 95% presently. Patient is feeling better, his chest x-ray is improving, and his echocardiogram is consistent with LV dysfunction and ejection fraction of 25-50%. Patient continues to have significant urine output, his creatinine is holding 1.17 today. Chest x-ray is showing improvement in his pulmonary edema patient does not have pneumonia it is basically all pulmonary edema improved practically speaking in 2 days after the course of diuresis. And knowing that his BNP level was elevated, knowing that his echocardiogram showed LV dysfunction, this is clearly systolic congestive heart failure. Again no pneumonia whatsoever. WBC count today is 10.8 hemoglobin is 10.5. Electrolytes are normal bicarb is 30 BUN is 32 creatinine 1.17. I reviewed the echocardiogram, and his right atrial pressure was noted to be low, and I felt that the patient is probably on the dry side if any at this point. Hence I will cut down the Lasix to 20 mg twice a day instead of 3 times a day. Considering the patient remains on a relatively high flow nasal cannula, I plan to keep him in the ICU, and we'll likely arrange for transfer out of the ICU in the next 24 hours assuming the patient continues to do well. Chest x-ray was reviewed and discussed with the patient and his at bedside. Patient was reevaluated today on 03/03/2018, has been feeling better over the last couple of days, breathing a lot easier, remains on high flow nasal cannula , pulse ox is 97%. No chest x-ray was done, but clinically the patient is improving. Less shortness of breath, no cough no wheezing no nausea no vomiting no abdominal pain. Patient's labs were all reviewed, renal functioning is improving. Hemoglobin is holding at 10.9 WBC count is 8.6. Blood sugars seem to be under control. And I plan to repeat a chest x-ray tomorrow. Patient was reevaluated today on 03/04/2018, he remains in the ICU but he is basically an overflow from selective. Doing well, down to few liters nasal cannula, O2 saturation is 98%. No cough no wheezing no shortness of breath, his renal functioning is a bit worse today, his chest x-ray showed near complete resolution of his congestive heart failure, small tiny pleural effusions remain, hence I recommended we cut down the Lasix to 40 mg once daily instead of twice daily. CBC showed a hemoglobin of 10.5 WBC count is 8.5. BUN is 38 creatinine 1.26. Patient remains on antibiotics for his E. coli sepsis and septic shock. Remains on GI and DVT prophylaxis. And again the Lasix dose was cut down to 40 mg once daily. We could potentially switch that to oral tomorrow. Reevaluated today on 03/05/2018, patient is doing great, asymptomatic, sitting at bedside chair, took him off oxygen, and he saturating in the mid 90s. Patient feels much better, all his labs were reviewed including his renal profile which is almost back to normal. Remains on diuretics, and he could have Lasix orally now instead of IV push, chest x-ray yesterday showed complete clearance of his pulmonary edema, and at this point I believe the patient could be seriously considered for discharge home on IV antibiotics, oral diuretics, and his usual cardiac meds, could have follow-up with me on outpatient basis. His creatinine today is 1.01. WBC count is 8.8. Hemoglobin is 10.2. On 03/06/2018 patient seen in follow-up on [facility] care unit, he is resting comfortably in bed, in no acute distress, no dyspnea, room air pulse ox is 93%, fever or chills, hemodynamically stable, lung sounds are clear to auscultation, no acute events overnight, today's lab work has been reviewed. WBC is 9.4, hemoglobin is 10.7, sodium is 136, the rest of the electrolytes were within normal limits, BUN is 32 and creatinine is 1.05. Follow blood cultures have been negative. Patient has been afebrile. Patient is awaiting placement of PICC line today for antibiotic infusions, discharge from the hospital after that. Objective - Vital Signs Vital signs: Vital Signs Temp 98.7 F 03/06/18 11:39 Pulse 68 03/06/18 11:39 Resp 16 03/06/18 11:39 BP 129/70 03/06/18 11:39 Pulse Ox 93 L 03/06/18 11:39 Intake & Output 03/05/18 03/06/18 03/06/18 18:59 06:59 18:59 Intake Total 620 160 420 Output Total 1690 300 600 Balance -1070 -140 -180 Weight 115.4 kg 117 kg Intake: IV 380 160 Meropenem 1 gm In Sodium 100 Chloride 0.9% 100 ml @ 200 mls/hr IVPB Q8H [facility] Rx#:[id number] Sodium Chloride 0.9% 1, 280 160 000 ml @ 20 mls/hr IV . Q24H [facility] Rx#:[id number] Oral 240 420 Output: Urine 1690 300 600 Stool 0 Other: Voiding Method Indwelling Catheter Bedpan Bedpan Urinal Urinal Diaper Diaper Incontinent Incontinent # Voids 1 1 # Bowel Movements 2 - Exam General appearance: Revealed an 82-year-old white male, obese, in no distress, however he is now on room air. Head exam: atraumatic, normocephalic, Eye exam: normal appearance, PERRL, EOMI. Absent: scleral icterus, conjunctival injection, periorbital swelling ENT exam: normal exam, mucous membranes moist Neck exam: normal inspection. Absent: tenderness, meningismus, lymphadenopathy Respiratory exam: Symmetrical chest expansion, clear breath sound bilaterally, no crackles, no rhonchi and no wheezes. Cardiovascular Exam: normal rhythm, tachycardia, normal heart sounds. No murmur, no rubs. GI/Abdominal exam: Obese, soft, normal bowel sounds. Negative rebound, guarding , positive bowel sounds Extremities exam: No clubbing, no edema, no cyanosis.. Neurological exam: No gross focal neurologic deficit Psychiatric exam: normal affect, normal mood Skin exam: Present: warm, dry, intact, normal color. No evidence of erythema or rashes. - Labs CBC & Chem 7: 03/06/18 05:45 03/06/18 05:45 Labs: Abnormal Lab Results - Last 24 Hours (Table) 03/05/18 03/05/18 03/05/18 Range/Units 17:09 20:13 21:04 RBC (4.30-5.90) m/uL Hgb (13.0-17.5) gm/dL Hct (39.0-53.0) % RDW (11.5-15.5) % Neutrophils # (1.3-7.7) k/uL Lymphocytes # (1.0-4.8) k/uL Sodium (137-145) mmol/L BUN (9-20) mg/dL Glucose (74-99) mg/dL POC Glucose (mg/dL) 136 H 323 H 183 H (75-99) mg/dL Total Protein (6.3-8.2) g/dL Albumin (3.5-5.0) g/dL 03/06/18 03/06/18 03/06/18 Range/Units 05:45 05:45 05:59 RBC 3.54 L (4.30-5.90) m/uL Hgb 10.7 L (13.0-17.5) gm/dL Hct 32.8 L (39.0-53.0) % RDW 16.3 H (11.5-15.5) % Neutrophils # 8.1 H (1.3-7.7) k/uL Lymphocytes # 0.8 L (1.0-4.8) k/uL Sodium 136 L (137-145) mmol/L BUN 32 H (9-20) mg/dL Glucose 104 H (74-99) mg/dL POC Glucose (mg/dL) 106 H (75-99) mg/dL Total Protein 5.9 L (6.3-8.2) g/dL Albumin 3.0 L (3.5-5.0) g/dL Microbiology - Last 24 Hours (Table) 02/28/18 04:22 Blood Culture - Final Blood No Growth after 144 hours 02/27/18 09:52 Blood Culture - Final Blood No Growth after 144 hours Assessment and Plan Plan: 1 acute sepsis secondary to acute urinary tract infection secondary to E. coli. ESBL, remains on Merrem and he would likely have met him on outpatient basis, a PICC line was already established. 2 status post PICC line placement for IV antibiotics on outpatient basis. 3 acute kidney injury secondary to sepsis. Creatinine today is 1.01 4 acute pulmonary edema and systolic dysfunction, echocardiogram and elevated BNP confirmed the findings. 5 history of obstructive sleep apnea normally on BiPAP at home.continue BiPAP during sleep type while inpatient. 6 acute hypoxic respiratory failure secondary to sepsis, pulmonary edema secondary to systolic congestive heart failure, this is based on the echocardiogram findings. And elevated BNP level. 7 prostate cancer and previous radiation cystitis. 8 benign essential hypertension 9 type 2 diabetes 10 previous CABG and previous aortic valve replacement 11 hyperlipidemia 12 obstructive sleep apnea syndrome. Plan: Patient is awake and alert, in no acute distress, no dyspnea, no fever or chills , patient is awaiting placement of a PICC line for antibiotic infusions, anticipate discharge to subacute rehabilitation today I performed a history & physical examination of the patient and discussed their management with my nurse practitioner, Monie Parson. I reviewed the nurse practitioner's note and agree with the documented findings and plan of care. Lung sounds are clear. The findings and the impression was discussed with the patient. I attest to the documentation by the nurse practitioner. Time with Patient: Less than 30
--- NOTE | 2018-03-06 17:07 | PN ---
PROGRESS NOTE DATE OF SERVICE: 03/06/2018 REASON FOR FOLLOWUP: ESBL E coli bacteremia and UTI. INTERVAL HISTORY: The patient is currently afebrile. He is breathing comfortably. Denies having any chest pain. No shortness of breath or cough. No abdominal pain and no diarrhea. PHYSICAL EXAMINATION: Blood pressure is 129/70 with a pulse of 68, temperature 98.7. He is 93% on room air. General description is an elderly male lying in bed in no distress. RESPIRATORY SYSTEM: Unlabored breathing. Clear to auscultation anteriorly. HEART: S1, S2. Regular rate and rhythm. ABDOMEN: Soft. No tenderness. LABS: Hemoglobin is 10.7, white count 9.4, BUN of 32, creatinine 1.05. DIAGNOSTIC IMPRESSION AND PLAN: Patient with extended-spectrum beta-lactamase Escherichia coli bacteremia secondary to urinary source. Follow-up blood cultures have negative. Currently on meropenem, to be transitioned to Invanz 1 gram daily for another 7-10 days to finish a 2-week course of therapy. Continue with supportive care. MMODL / VELVETN: [id number] /
== END 2018-03-06 16:28 | DRG 871 ==
LOC: EC 14:07 → 4SSUR 18:20 → 2SICU 02-26 21:38 → 3SCARD 03-05 17:32
PROVIDERS: ADMIT Internal Medicine Geriatric Medicine; ATTEND Internal Medicine Geriatric Medicine
PROC: B54NZZA Ultrasonography of Left Upper Extremity Veins, Guidance (ICD-10-PCS; principal; 2018-02-28 13:30)
PROC: 3E03329 Introduction of Other Anti-infective into Peripheral Vein, Percutaneous Approach (ICD-10-PCS; principal; 2018-02-28 13:30)
PROC: 05HF33Z Insertion of Infusion Device into Left Cephalic Vein, Percutaneous Approach (ICD-10-PCS; principal; 2018-02-28 13:30)
DX: A41.51 Sepsis due to Escherichia coli [E. coli] (principal); J96.01 Acute respiratory failure with hypoxia; R65.21 Severe sepsis with septic shock; I50.21 Acute systolic (congestive) heart failure; J18.9 Pneumonia, unspecified organism; N17.9 Acute kidney failure, unspecified; N39.0 Urinary tract infection, site not specified; D63.8 Anemia in other chronic diseases classified elsewhere; E78.5 Hyperlipidemia, unspecified; G47.33 Obstructive sleep apnea (adult) (pediatric); I08.1 Rheumatic disorders of both mitral and tricuspid valves; I11.0 Hypertensive heart disease with heart failure; I25.10 Atherosclerotic heart disease of native coronary artery without angina pectoris; N28.1 Cyst of kidney, acquired; W19.XXXA Unspecified fall, initial encounter; Z16.12 Extended spectrum beta lactamase (ESBL) resistance; Z79.4 Long term (current) use of insulin; Z79.899 Other long term (current) drug therapy; Z82.49 Family history of ischemic heart disease and other diseases of the circulatory system; Z83.3 Family history of diabetes mellitus; Z85.46 Personal history of malignant neoplasm of prostate; Z85.51 Personal history of malignant neoplasm of bladder; Z87.440 Personal history of urinary (tract) infections; Z87.891 Personal history of nicotine dependence; Z92.3 Personal history of irradiation; Z95.1 Presence of aortocoronary bypass graft; Z95.2 Presence of prosthetic heart valve; E11.40 Type 2 diabetes mellitus with diabetic neuropathy, unspecified; Z99.89 Dependence on other enabling machines and devices
CPT/HCPCS: 36415; 36569; 36600; 71045; 71046; 76770; 76937; 80048; 80053; 81001; 82550; 82553; 82805; 83036; 83605; 83735; 83880; 84100; 84132; 84484; 85025; 85027; 85610; 85730; 87040; 87077; 87086; 87150; 87186; 87502; 93005; 93306; 94660; 94760; 96361; 96365; 96367; 96375; 99285

== ENCOUNTER 2018-03-24 14:03 | Observation (INO) | payer MEDICARE ==
[2018-03-24] MEDS ORDERED: SODIUM CHLORIDE 0.9% 500 ML 500 ML IV STA (14:20)
[2018-03-24] MEDS ORDERED: SODIUM CHLORIDE 0.9% 1,000 ML IV STA (14:20)
--- NOTE | 2018-03-24 14:24 | ED ---
General Adult HPI - General Chief complaint: Recheck/Abnormal Lab/Rx Stated complaint: low blood pressure Time Seen by Provider: 03/24/18 14:03 Source: patient, family, EMS, RN notes reviewed, old records reviewed Mode of arrival: EMS Limitations: no limitations - History of Present Illness Initial comments: This is a 82-year-old male with a history of multiple medical problems including urinary tract infection with sepsis who was brought in for evaluation for hypotension. He had a scheduled cardiology appointment today with several cardiologists office and blood pressures as low as 84 systolic. He does have some symptoms when he gets elevated. No chest pain fevers chills nausea vomiting sweats or dysuria or other symptoms. Per paramedics PVCs are noted on the monitor patient was noted be in trigeminy during the episode. - Related Data Home Medications Medication Instructions Recorded Confirmed Allopurinol [Zyloprim] 300 mg PO Q48H 03/01/17 03/24/18 DULoxetine HCL [Cymbalta] 30 mg PO DAILY 03/01/17 03/24/18 Docusate [Colace] 100 mg PO BID 03/01/17 03/24/18 Glucosam/Donnie-Msm1/C/Pardeep/Bosw 1 tab PO HS 03/01/17 03/24/18 [Glucosamine-Chondroitin Tablet] Multivitamins, Thera [Multivitamin 1 tab PO DAILY 03/01/17 03/24/18 (formulary)] Simvastatin [Zocor] 20 mg PO HS 03/01/17 03/24/18 Mirabegron [Myrbetriq] 50 mg PO DAILY 06/27/17 03/24/18 Omeprazole 20 mg PO BID 06/27/17 03/24/18 sitaGLIPtin PHOS/metFORMIN HCL 1 tab PO HS 06/27/17 03/24/18 [Janumet 50-500 mg Tablet] Calcium Carbonate/Vitamin D3 1 tab PO HS 10/11/17 03/24/18 [Calcium 600-Vit D3 200 Tablet] Turmeric Root Extract [Turmeric] 500 mg PO DAILY 10/11/17 03/24/18 Ferrous Sulfate [Iron (65 MG 325 mg PO DAILY 02/25/18 03/24/18 Elemental)] Torsemide [Demadex] 40 mg PO BID 02/25/18 03/24/18 Bisacodyl [Dulcolax] 10 mg RECTAL DAILY PRN 03/24/18 03/24/18 Famotidine [Pepcid] 20 mg PO BID 03/24/18 03/24/18 Insulin Aspart [NovoLOG See Protocol SQ ACHS 03/24/18 03/24/18 (formulary)] Magnesium Hydroxide [Milk of 2,400 mg PO DAILY PRN 03/24/18 03/24/18 Magnesia] Midodrine HCl [ProAmantine] 5 mg PO TID 03/24/18 03/24/18 Na Phos,M-B/Na Phos,Di-Ba [Fleet 133 ml RECTAL DAILY PRN 03/24/18 03/24/18 Adult] Nystatin 100,000 Unit/gm Oint 1 applic TOPICAL BID 03/24/18 03/24/18 [Mycostatin Oint] Triad 1 applic TOPICAL BID 03/24/18 03/24/18 Previous Rx's Medication Instructions Recorded Acetaminophen Tab [Tylenol] 650 mg PO Q6H PRN tab 03/06/18 Gabapentin [Neurontin] 300 mg PO HS #0 03/06/18 Allergies Allergy/AdvReac Type Severity Reaction Status Date / Time No Known Allergies Allergy Verified 03/24/18 14:20 Review of Systems ROS Statement: Those systems with pertinent positive or pertinent negative responses have been documented in the HPI. ROS Other: All systems not noted in ROS Statement are negative. 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 Anemia with blood transfusions. History of Any Multi-Drug Resistant Organisms: ESBL Date of last positivie culture/infection: 02/25/18 MDRO Source:: urine, blood esbl Past Surgical History: Cardiac Valve Replacement, Heart Catheterization Additional Past Surgical History / Comment(s): 03/02/17 cystoscopy/evacuation clots and fulguration bladder, 01/20/12 CABG-3 vessel with aortic valve. Past Anesthesia/Blood Transfusion Reactions: No Reported Reaction Past Psychological History: No Psychological Hx Reported Smoking Status: Former smoker Past Alcohol Use History: Occasional Past Drug Use History: None Reported - Past Family History Mother Family Medical History: Myocardial Infarction (CT) Additional Family Medical History / Comment(s): Mother at age 67 from a myocardial infarction. Father Family Medical History: Diabetes Mellitus, Myocardial Infarction (CT) Additional Family Medical History / Comment(s): Father from complications from diabetes mellitus that was uncontrolled with frequent episodes of coma. He also has history of myocardial infarction. The patient has no children and no siblings. General Exam - General Exam Comments Initial Comments: This is a well-developed well-nourished awake alert oriented times 3 male Limitations: no limitations General appearance: alert, in no apparent distress Head exam: Present: atraumatic, normocephalic, normal inspection Eye exam: Present: normal appearance, PERRL, EOMI. Absent: scleral icterus, conjunctival injection, periorbital swelling ENT exam: Present: mucous membranes dry Neck exam: Present: normal inspection, other (No stridor JVD or bruits). Absent : tenderness, meningismus, lymphadenopathy Respiratory exam: Present: normal lung sounds bilaterally. Absent: respiratory distress, wheezes, rales, rhonchi, stridor Cardiovascular Exam: Present: regular rate, normal rhythm, normal heart sounds. Absent: systolic murmur, diastolic murmur, rubs, gallop, clicks GI/Abdominal exam: Present: soft, normal bowel sounds. Absent: distended, tenderness, guarding, rebound, rigid, bruit, pulsatile mass Extremities exam: Present: normal inspection, full ROM, normal capillary refill. Absent: tenderness, pedal edema, joint swelling, calf tenderness Back exam: Present: normal inspection Neurological exam: Present: alert, oriented X3, CN II-XII intact Psychiatric exam: Present: normal affect, normal mood Skin exam: Present: warm, dry, intact, normal color. Absent: rash Course Vital Signs 03/24/18 03/24/18 03/24/18 14:05 14:09 14:30 Temperature 98.0 F Pulse Rate 97 86 Respiratory 20 18 Rate Blood Pressure 102/75 102/75 O2 Sat by Pulse 96 95 95 Oximetry 03/24/18 15:00 Temperature Pulse Rate 91 Respiratory 18 Rate Blood Pressure 113/71 O2 Sat by Pulse 95 Oximetry Medical Decision Making - Medical Decision Making I did discuss findings with patient family members as well as with Dr. Rogers the patient will be admitted with cardiology consultation by Dr. Varela does demonstrate elevated troponin and will be heparinized. - Lab Data Result diagrams: 03/24/18 14:25 03/24/18 14:25 Lab Results 03/24/18 03/24/18 03/24/18 Range/Units 14:25 14:25 14:25 WBC 6.4 (3.8-10.6) k/uL RBC 3.92 L (4.30-5.90) m/uL Hgb 11.5 L (13.0-17.5) gm/dL Hct 35.8 L (39.0-53.0) % MCV 91.5 (80.0-100.0) fL MCH 29.3 (25.0-35.0) pg MCHC 32.1 (31.0-37.0) g/dL RDW 16.6 H (11.5-15.5) % Plt Count 174 (150-450) k/uL Neutrophils % 73 % Lymphocytes % 14 % Monocytes % 5 % Eosinophils % 5 % Basophils % 1 % Neutrophils # 4.7 (1.3-7.7) k/uL Lymphocytes # 0.9 L (1.0-4.8) k/uL Monocytes # 0.3 (0-1.0) k/uL Eosinophils # 0.3 (0-0.7) k/uL Basophils # 0.0 (0-0.2) k/uL Anisocytosis Slight Sodium 138 (137-145) mmol/L Potassium 3.3 L (3.5-5.1) mmol/L Chloride 97 L (98-107) mmol/L Carbon Dioxide 30 (22-30) mmol/L Anion Gap 11 mmol/L BUN 17 (9-20) mg/dL Creatinine 1.38 H (0.66-1.25) mg/dL Est GFR (CKD-EPI)AfAm 56 (>60 ml/min/1.73 sqM) Est GFR (CKD-EPI)NonAf 48 (>60 ml/min/1.73 sqM) Glucose 127 H (74-99) mg/dL Calcium 9.1 (8.4-10.2) mg/dL Magnesium 1.6 (1.6-2.3) mg/dL Total Bilirubin 0.5 (0.2-1.3) mg/dL AST 55 (17-59) U/L ALT 54 (21-72) U/L Alkaline Phosphatase 112 (38-126) U/L Total Creatine Kinase 41 L (55-170) U/L CK-MB (CK-2) 2.7 H (0.0-2.4) ng/mL CK-MB (CK-2) Rel Index 6.6 Troponin I 0.049 H* (0.000-0.034) ng/mL Total Protein 7.1 (6.3-8.2) g/dL Albumin 3.8 (3.5-5.0) g/dL - EKG Data -: EKG Interpreted by Me EKG shows normal: sinus rhythm (EKG showed a sinus rhythm at 90. Interval 196 QRS duration 116 QT since QTC 428/523 left exodeviation poor R-wave progression nonspecific ST configuration and prolonged QT is noted.) - Radiology Data Radiology results: report reviewed (Did review the imaging and report no acute findings), image reviewed Critical Care Time Critical Care Time: Yes Critical Care Time: 31 minutes of critical care time which includes initial presentation with history physical labs x-rays several reevaluation patient. Discussed with the patient regarding the findings discussion with the admitting physician admission orders and documentation the above. This also included review of old charting that was available Disposition Clinical Impression: Elevated troponin, Orthostatic hypotension, Dehydration, Renal insufficiency syndrome Disposition: ADMITTED IP TO THIS [facility] Condition: Stable Referrals: Alfredo Self MD [Primary Care Provider] - 1-2 days
[2018-03-24 14:44] LABS: Anisocytosis Slight; Basophils % (A) 1 %; Eosinophils # (A) 0.3 k/uL (0-0.7); Eosinophils % (A) 5 %; HCT 35.8 % (39.0-53.0); HGB 11.5 gm/dL (13.0-17.5); Lymphocytes # (A) 0.9 k/uL (1.0-4.8); Lymphocytes % (A) 14 %; MCH 29.3 pg (25.0-35.0); MCHC 32.1 g/dL (31.0-37.0); MCV 91.5 fL (80.0-100.0); Mean Platelet Volume 7.9; Monocytes # (A) 0.3 k/uL (0-1.0); Monocytes % (A) 5 %; Neutrophils # (A) 4.7 k/uL (1.3-7.7); Neutrophils % (A) 73 %; Platelet Count 174 k/uL (150-450); RBC 3.92 m/uL (4.30-5.90); RDW 16.6 % (11.5-15.5); WBC 6.4 k/uL (3.8-10.6)
[2018-03-24 15:00] LABS: Albumin 3.8 g/dL (3.5-5.0); Calcium 9.1 mg/dL (8.4-10.2); Magnesium 1.6 mg/dL (1.6-2.3); Potassium 3.3 mmol/L (3.5-5.1); Total Bilirubin 0.5 mg/dL (0.2-1.3); Total Protein 7.1 g/dL (6.3-8.2)
[2018-03-24 15:18] LABS: Creatine Kinase MB 2.7 ng/mL (0.0-2.4)
[2018-03-24 15:21] LABS: Troponin I 0.049 ng/mL (0.000-0.034)
--- NOTE | 2018-03-24 15:38 | XR ---
EXAMINATION TYPE: XR chest 2V DATE OF EXAM: 03/24/2018 COMPARISON: 03/04/2018 INDICATION: Low blood pressure history of heart catheterization and coronary artery disease TECHNIQUE: Frontal and lateral views of the chest are obtained. FINDINGS: The heart size is normal. The pulmonary vasculature is normal. The lungs are clear. Sternotomy wires are in the midline. IMPRESSION: 1. No acute pulmonary process.
[2018-03-24] MEDS ORDERED: HEPARIN SODIUM,PORCINE 5,000 UNIT/ML 1 ML VIAL IV ONE (16:34)
[2018-03-24] MEDS ORDERED: NITROGLYCERIN SL TABS 0.4 MG TAB SUBLINGUAL PRN (16:34)
[2018-03-24] MEDS ORDERED: MAGNESIUM HYDROXIDE 2,400 MG/10 ML CUP PO PRN (16:36)
[2018-03-24] MEDS ORDERED: NA PHOS,M-B/NA PHOS,DI-BA 133 ML ENEMA RECTAL PRN (16:36)
[2018-03-24] MEDS ORDERED: HEPARIN SOD,PORK IN 0.45% NACL 25,000 UNIT in 0.45% NACL 1 250ML.BAG IV SCH (16:45)
[2018-03-24] MEDS: FAMOTIDINE 20 MG TAB PO SCH (19:45)
[2018-03-24] MEDS: GABAPENTIN 300 MG CAP PO SCH (19:45)
[2018-03-24] MEDS: NYSTATIN 100,000 UNIT/GM OINT 30 GM TUBE TOPICAL SCH (19:45)
[2018-03-24] MEDS: ATORVASTATIN 10 MG TAB PO SCH (19:45)
[2018-03-24 20:01] LABS: Glucose,Whole Blood 124 mg/dL (75-99)
[2018-03-24] MEDS: metFORMIN 500 MG TAB PO SCH (20:40)
[2018-03-24] MEDS: LINAGLIPTIN 5 MG TABLET PO SCH (20:40)
[2018-03-24] MEDS ORDERED: NON-FORMULARY DRUG (Glucosam/Chon-Msm1/C/Mang/Bosw [Glucosamine-Chondroitin Tablet] 1 TAB) PO SCH (21:00)
[2018-03-24] MEDS ORDERED: TORSEMIDE 20 MG TAB PO SCH (21:00)
[2018-03-24] MEDS ORDERED: Potassium Replacement Protocol 1 EACH MISC MISCELLANE PRN (21:44)
[2018-03-24] MEDS: MAGNESIUM SULFATE-D5W PMX 1 GM in DEXTROSE/WATER 1 100ML.BAG IVPB SCH ×2 (22:48→23:47)
[2018-03-24] MEDS: POTASSIUM CHLORIDE ER 20 MEQ TAB.ER PO SCH ×2 (22:48→23:46)
[2018-03-24 22:51] LABS: Creatine Kinase MB 2.8 ng/mL (0.0-2.4)
[2018-03-24 22:54] LABS: Troponin I 0.052 ng/mL (0.000-0.034)
[2018-03-24 23:30] LABS: Appearance,Urine Cloudy (Clear); Bilirubin,Urine Negative (Negative); Blood,Urine Small (Negative); Color,Urine Light Yellow; Glucose,Urine (UA) Negative (Negative); Hyphae Yeast, Urine Few /hpf; Ketones,Urine Negative (Negative); Leukocyte Esterase,Urine Large (Negative); Nitrite,Urine Negative (Negative); Protein,Urine Trace (Negative); RBC,Urine 5 /hpf (0-5); Specific Gravity,Urine 1.006 (1.001-1.035); Urobilinogen,Urine <2.0 mg/dL (<2.0); WBC,Urine >182 /hpf (0-5)
[2018-03-25 03:12] LABS: Troponin I 0.051 ng/mL (0.000-0.034)
[2018-03-25 04:09] LABS: Cholesterol 153 mg/dL (<200); HDL Cholesterol 65 mg/dL (40-60); LDL Cholesterol,Calculated 51 mg/dL (0-99); Triglycerides 187 mg/dL (<150)
[2018-03-25 06:05] LABS: Glucose,Whole Blood 111 mg/dL (75-99)
[2018-03-25] MEDS: PANTOPRAZOLE 40 MG TABLET PO SCH (06:23)
[2018-03-25] MEDS: MIDODRINE 5 MG TAB PO SCH ×3 (06:23→18:31)
[2018-03-25 07:54] LABS: Calcium 8.7 mg/dL (8.4-10.2); Magnesium 1.9 mg/dL (1.6-2.3); Potassium 3.6 mmol/L (3.5-5.1)
[2018-03-25 07:55] LABS: Anisocytosis Slight; Basophils % (A) 1 %; Eosinophils # (A) 0.3 k/uL (0-0.7); Eosinophils % (A) 6 %; HCT 33.9 % (39.0-53.0); HGB 11.1 gm/dL (13.0-17.5); Lymphocytes # (A) 0.7 k/uL (1.0-4.8); Lymphocytes % (A) 17 %; MCH 30.3 pg (25.0-35.0); MCHC 32.8 g/dL (31.0-37.0); MCV 92.5 fL (80.0-100.0); Monocytes # (A) 0.3 k/uL (0-1.0); Monocytes % (A) 7 %; Neutrophils # (A) 2.8 k/uL (1.3-7.7); Neutrophils % (A) 67 %; Platelet Count 144 k/uL (150-450); RBC 3.66 m/uL (4.30-5.90); RDW 16.4 % (11.5-15.5); WBC 4.1 k/uL (3.8-10.6)
[2018-03-25] MEDS ORDERED: SODIUM CHLORIDE 0.9% 1,000 ML IV SCH (08:30)
[2018-03-25] MEDS ORDERED: TORSEMIDE 20 MG TAB PO SCH (09:00)
[2018-03-25] MEDS ORDERED: ASPIRIN 325 MG TAB PO SCH (09:00)
[2018-03-25] MEDS: FAMOTIDINE 20 MG TAB PO SCH ×2 (09:11→21:06)
[2018-03-25] MEDS: FERROUS SULFATE 325 MG TAB PO SCH (09:11)
[2018-03-25] MEDS: MULTIVITAMINS, THERA 1 EACH TAB PO SCH (09:11)
[2018-03-25] MEDS: NYSTATIN 100,000 UNIT/GM OINT 30 GM TUBE TOPICAL SCH ×2 (09:12→21:08)
[2018-03-25] MEDS: NON-FORMULARY DRUG (Mirabegron [Myrbetriq] 50 MG) PO SCH (10:04)
[2018-03-25 11:51] LABS: Glucose,Whole Blood 155 mg/dL (75-99)
--- NOTE | 2018-03-25 12:16 | P.HPIM ---
History of Present Illness H&P Date: 03/25/18 Chief Complaint: Generalized weakness. This is an 82-year-old male patient of Dr. Self with past medical history significant for prostate cancer status post radiation therapy, coronary artery disease status post 3 vessel CABG and aortic valve replacement, diabetes mellitus type 2 insulin requiring, hypertension, hyperlipidemia. Patient had a recent hospitalization February 25 through March 06 which time he was treated for ESBL E. coli UTI with E. coli sepsis and septic shock, acute hypoxic respiratory failure requiring BiPAP secondary to sepsis, pulmonary edema with possible acute systolic heart failure and possible pneumonia, acute kidney injury. Patient was followed during the hospitalization by Dr. Felix and Dr. Block. Patient was discharged on 1 week of IV Invanz to [facility] where he has been residing since. Patient states at least a week ago his blood pressure has been on the low side and he has not been able to stand or participate with physical therapy. He did see Dr. Perkins's nurse practitioner and medication changes were made however patient continued to have low blood pressure. Yesterday, he had an appointment scheduled with Dr. Corrigan however once the ambulance brought him to Dr. Corrigan's office, it was found that Dr. Corrigan was called away for heart catheterization and was unable to see the patient. Patient was then brought to [facility] emergency center for evaluation. Patient was found to be afebrile, pulse ox 96%, heart rate running in the 80s and 90s, but pressure 102/75. White count 6.4, hemoglobin 11.5. Sodium 138, potassium 3.3, BUN 17, creatinine 1.38, blood sugar 127. Urinalysis was cloudy, leukoesterase large, WBC greater than 182 and Elena BC clumps many. EKG was a sinus rhythm with nonspecific ST changes. Troponin 0.049, 0.052 and 0.051. Patient was started on a heparin drip and admitted to the selective care unit and consult requested with cardiology. Regarding urinary tract infection, patient will be started on Zosyn and consult placed with Dr. Block. Urine culture requested. Patient remains with PICC in the left arm. Review of Systems All systems: negative Constitutional: Reports fatigue, Reports poor appetite, Reports weakness, Denies chills, Denies fever Eyes: denies blurred vision, denies pain Ears, nose, mouth and throat: Reports vertigo, Denies dysphagia, Denies headache , Denies sore throat Cardiovascular: Denies chest pain, Denies dyspnea on exertion, Denies edema, Denies leg edema, Denies palpitations, Denies shortness of breath, Denies syncope Respiratory: Denies cough, Denies cough with sputum, Denies dyspnea, Denies excessive sputum, Denies hemoptysis, Denies home oxygen Gastrointestinal: Reports loss of appetite, Denies abdominal pain, Denies diarrhea, Denies nausea, Denies vomiting Genitourinary: Denies dysuria Musculoskeletal: Reports gait dysfunction, Reports muscle weakness, Denies frequent falls, Denies myalgias Integumentary: Denies pruritus, Denies rash, Denies wounds Neurological: Denies aphasia, Denies change in mentation, Denies confusion, Denies numbness, Denies seizures, Denies weakness Psychiatric: Denies anxiety, Denies depression Endocrine: Denies fatigue, Denies weight change Past Medical History Past Medical History: Blood Disorder, Coronary Artery Disease (CAD), Cancer, Diabetes Mellitus, Hyperlipidemia, Hypertension, Osteoarthritis (OA), Prostate Disorder, Renal Disease, Skin Disorder, Sleep Apnea/CPAP/BIPAP Additional Past Medical History / Comment(s): 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 Anemia with blood transfusions.02/25/2018 WAS IN [facility] FOR SEPSIS UTI ECOLI INFECTION. HAS A MEDLINE PORT LEFT UPPER ARM FROM [facility] 03/22/2018 History of Any Multi-Drug Resistant Organisms: ESBL Date of last positivie culture/infection: 02/25/18 MDRO Source:: urine, blood esbl Past Surgical History: Cardiac Valve Replacement, Heart Catheterization Additional Past Surgical History / Comment(s): 03/02/17 cystoscopy/evacuation clots and fulguration bladder, 01/20/12 CABG-3 vessel with aortic valve. Past Anesthesia/Blood Transfusion Reactions: No Reported Reaction Past Psychological History: No Psychological Hx Reported Additional Psychological History / Comment(s): Pt resides with his spouse. He ambulates with a walker. He drives.served in [email or web address]. 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 He drinks occasional alcohol. He denies illicit drug use. Past Drug Use History: None Reported - Past Family History Mother Family Medical History: Myocardial Infarction ([place]) Additional Family Medical History / Comment(s): Mother at age 67 from a myocardial infarction. Father Family Medical History: Diabetes Mellitus, Myocardial Infarction ([place]) Additional Family Medical History / Comment(s): Father from complications from diabetes mellitus that was uncontrolled with frequent episodes of coma. He also has history of myocardial infarction. The patient has no children and no siblings. Medications and Allergies Home Medications Medication Instructions Recorded Confirmed Type RX: Allopurinol [Zyloprim] 300 mg PO Q48H 03/01/17 03/24/18 History RX: DULoxetine HCL [Cymbalta] 30 mg PO DAILY 03/01/17 03/24/18 History RX: Docusate [Colace] 100 mg PO BID 03/01/17 03/24/18 History RX: Glucosam/Donnie-Msm1/C/Pardeep/Bosw 1 tab PO HS 03/01/17 03/24/18 History [Glucosamine-Chondroitin Tablet] RX: Multivitamins, Thera 1 tab PO DAILY 03/01/17 03/24/18 History [Multivitamin (formulary)] RX: Simvastatin [Zocor] 20 mg PO HS 03/01/17 03/24/18 History RX: Mirabegron [Myrbetriq] 50 mg PO DAILY 06/27/17 03/24/18 History RX: Omeprazole 20 mg PO BID 06/27/17 03/24/18 History RX: sitaGLIPtin PHOS/metFORMIN HCL 1 tab PO HS 06/27/17 03/24/18 History [Janumet 50-500 mg Tablet] RX: Calcium Carbonate/Vitamin D3 1 tab PO HS 10/11/17 03/24/18 History [Calcium 600-Vit D3 200 Tablet] RX: Turmeric Root Extract 500 mg PO DAILY 10/11/17 03/24/18 History [Turmeric] RX: Ferrous Sulfate [Iron (65 MG 325 mg PO DAILY 02/25/18 03/24/18 History Elemental)] RX: Torsemide [Demadex] 40 mg PO BID 02/25/18 03/24/18 History RX: Acetaminophen Tab [Tylenol] 650 mg PO Q6H PRN tab 03/06/18 03/24/18 Rx RX: Gabapentin [Neurontin] 300 mg PO HS #0 03/06/18 03/24/18 Rx Bisacodyl [Dulcolax] 10 mg RECTAL DAILY PRN 03/24/18 03/24/18 History Famotidine [Pepcid] 20 mg PO BID 03/24/18 03/24/18 History Insulin Aspart [NovoLOG See Protocol SQ ACHS 03/24/18 03/24/18 History (formulary)] Magnesium Hydroxide [Milk of 2,400 mg PO DAILY PRN 03/24/18 03/24/18 History Magnesia] Midodrine HCl [ProAmantine] 5 mg PO TID 03/24/18 03/24/18 History Na Phos,M-B/Na Phos,Di-Ba [Fleet 133 ml RECTAL DAILY PRN 03/24/18 03/24/18 History Adult] Nystatin 100,000 Unit/gm Oint 1 applic TOPICAL BID 03/24/18 03/24/18 History [Mycostatin Oint] RX: Fludrocortisone Acetate 0.1 mg PO BID 03/24/18 03/24/18 History Tamsulosin HCl [Flomax] 0.4 mg PO DAILY 03/24/18 03/24/18 History Triad 1 applic TOPICAL BID 03/24/18 03/24/18 History Allergies Allergy/AdvReac Type Severity Reaction Status Date / Time No Known Allergies Allergy Verified 03/24/18 14:20 Physical Exam Vitals: Vital Signs Temp Pulse Pulse Resp BP BP BP 03/25/18 06:10 101/64 105/57 03/25/18 04:00 98.3 F 85 17 03/24/18 23:55 81 17 03/24/18 23:52 98.2 F 81 17 03/24/18 20:00 98 F 83 17 03/24/18 18:36 97.7 F 83 16 03/24/18 18:00 97.8 F 86 18 120/77 03/24/18 17:30 86 20 91/70 03/24/18 17:00 91 16 104/72 03/24/18 16:30 85 18 113/76 03/24/18 16:00 89 18 113/71 03/24/18 15:00 91 18 113/71 03/24/18 14:30 86 18 102/75 03/24/18 14:09 03/24/18 14:05 98.0 F 97 20 102/75 BP Pulse Ox 03/25/18 06:10 142/76 03/25/18 04:00 123/79 97 03/24/18 23:55 03/24/18 23:52 115/72 96 03/24/18 20:00 127/68 96 03/24/18 18:36 123/75 96 03/24/18 18:00 95 03/24/18 17:30 95 03/24/18 17:00 96 03/24/18 16:30 96 03/24/18 16:00 97 03/24/18 15:00 95 03/24/18 14:30 95 03/24/18 14:09 95 03/24/18 14:05 96 Intake and Output 03/24/18 03/25/18 03/25/18 22:59 06:59 14:59 Intake Total 557 800 Output Total 450 Balance 557 350 Intake: IV 500 Sodium Chloride 0.9% 500 500 ml 500 ml @ 999 mls/hr IV .Q31M [facility] Rx#:[id number] Intake, IV Titration 57 Amount Heparin Sod,Pork in 0.45% 57 NaCl 25,000 unit In 0.45 % NaCl 1 250ml.bag @ 9. 462 UNITS/KG/HR 10 mls/hr IV .Q24H [facility] Rx#: [id number] Oral 800 Output: Urine 450 Other: Voiding Method Diaper Diaper Incontinent Incontinent Weight 105.9 kg General appearance: average body habitus, no acute distress - EENT Eyes: anicteric sclerae, EOMI, PERRLA, no ptosis, no scleral icterus, normal appearance ENT: hearing grossly normal, NA/AT, normal oropharynx, no thrush Ears: bilateral: normal - Neck Neck: no lymphadenopathy, normal ROM, no rigidity, no stridor, no thyromegaly Carotids: bilateral: upstroke normal - Respiratory Respiratory: bilateral: diminished, negative: dullness, rales, rhonchi, wheezing , prolonged expiration, prolonged inspiration - Cardiovascular Rhythm: regular Heart sounds: normal: S1, S2 Abnormal Heart Sounds: systolic murmur - Gastrointestinal General gastrointestinal: normal bowel sounds, soft, no splenomegaly, no tenderness, no umbilical hernia, no ventral hernia - Integumentary Integumentary: normal, normal turgor - Neurologic Neurologic: CNII-XII intact - Musculoskeletal Musculoskeletal: generalized weakness, strength equal bilaterally - Psychiatric Psychiatric: A&O x's 3, appropriate affect, intact judgment & insight Results CBC & Chem 7: 03/26/18 06:05 03/26/18 06:05 Labs: Abnormal Lab Results - Last 24 Hours (Table) 03/24/18 03/24/18 03/24/18 Range/Units 14:25 14:25 14:25 RBC 3.92 L (4.30-5.90) m/uL Hgb 11.5 L (13.0-17.5) gm/dL Hct 35.8 L (39.0-53.0) % RDW 16.6 H (11.5-15.5) % Plt Count (150-450) k/uL Lymphocytes # 0.9 L (1.0-4.8) k/uL APTT (22.0-30.0) sec Potassium 3.3 L (3.5-5.1) mmol/L Chloride 97 L (98-107) mmol/L Creatinine 1.38 H (0.66-1.25) mg/dL Glucose 127 H (74-99) mg/dL POC Glucose (mg/dL) (75-99) mg/dL Total Creatine Kinase 41 L (55-170) U/L CK-MB (CK-2) 2.7 H (0.0-2.4) ng/mL Troponin I 0.049 H* (0.000-0.034) ng/mL Triglycerides (<150) mg/dL HDL Cholesterol (40-60) mg/dL Urine Protein (Negative) Urine Blood (Negative) Ur Leukocyte Esterase (Negative) Urine WBC (0-5) /hpf Urine WBC Clumps (None) /hpf 03/24/18 03/24/18 03/24/18 Range/Units 19:59 21:49 21:49 RBC (4.30-5.90) m/uL Hgb (13.0-17.5) gm/dL Hct (39.0-53.0) % RDW (11.5-15.5) % Plt Count (150-450) k/uL Lymphocytes # (1.0-4.8) k/uL APTT 57.0 H (22.0-30.0) sec Potassium (3.5-5.1) mmol/L Chloride (98-107) mmol/L Creatinine (0.66-1.25) mg/dL Glucose (74-99) mg/dL POC Glucose (mg/dL) 124 H (75-99) mg/dL Total Creatine Kinase 40 L (55-170) U/L CK-MB (CK-2) 2.8 H (0.0-2.4) ng/mL Troponin I 0.052 H* (0.000-0.034) ng/mL Triglycerides (<150) mg/dL HDL Cholesterol (40-60) mg/dL Urine Protein (Negative) Urine Blood (Negative) Ur Leukocyte Esterase (Negative) Urine WBC (0-5) /hpf Urine WBC Clumps (None) /hpf 03/24/18 03/25/18 03/25/18 Range/Units 23:00 01:59 01:59 RBC (4.30-5.90) m/uL Hgb (13.0-17.5) gm/dL Hct (39.0-53.0) % RDW (11.5-15.5) % Plt Count (150-450) k/uL Lymphocytes # (1.0-4.8) k/uL APTT (22.0-30.0) sec Potassium (3.5-5.1) mmol/L Chloride (98-107) mmol/L Creatinine (0.66-1.25) mg/dL Glucose (74-99) mg/dL POC Glucose (mg/dL) (75-99) mg/dL Total Creatine Kinase 40 L (55-170) U/L CK-MB (CK-2) 3.0 H (0.0-2.4) ng/mL Troponin I 0.051 H* (0.000-0.034) ng/mL Triglycerides 187 H (<150) mg/dL HDL Cholesterol 65 H (40-60) mg/dL Urine Protein Trace H (Negative) Urine Blood Small H (Negative) Ur Leukocyte Esterase Large H (Negative) Urine WBC >182 H (0-5) /hpf Urine WBC Clumps Many H (None) /hpf 03/25/18 03/25/18 03/25/18 Range/Units 05:53 05:54 05:54 RBC 3.66 L (4.30-5.90) m/uL Hgb 11.1 L (13.0-17.5) gm/dL Hct 33.9 L (39.0-53.0) % RDW 16.4 H (11.5-15.5) % Plt Count 144 L (150-450) k/uL Lymphocytes # 0.7 L (1.0-4.8) k/uL APTT 47.7 H (22.0-30.0) sec Potassium (3.5-5.1) mmol/L Chloride (98-107) mmol/L Creatinine 1.29 H (0.66-1.25) mg/dL Glucose 118 H (74-99) mg/dL POC Glucose (mg/dL) (75-99) mg/dL Total Creatine Kinase (55-170) U/L CK-MB (CK-2) (0.0-2.4) ng/mL Troponin I (0.000-0.034) ng/mL Triglycerides (<150) mg/dL HDL Cholesterol (40-60) mg/dL Urine Protein (Negative) Urine Blood (Negative) Ur Leukocyte Esterase (Negative) Urine WBC (0-5) /hpf Urine WBC Clumps (None) /hpf 03/25/18 Range/Units 06:03 RBC (4.30-5.90) m/uL Hgb (13.0-17.5) gm/dL Hct (39.0-53.0) % RDW (11.5-15.5) % Plt Count (150-450) k/uL Lymphocytes # (1.0-4.8) k/uL APTT (22.0-30.0) sec Potassium (3.5-5.1) mmol/L Chloride (98-107) mmol/L Creatinine (0.66-1.25) mg/dL Glucose (74-99) mg/dL POC Glucose (mg/dL) 111 H (75-99) mg/dL Total Creatine Kinase (55-170) U/L CK-MB (CK-2) (0.0-2.4) ng/mL Troponin I (0.000-0.034) ng/mL Triglycerides (<150) mg/dL HDL Cholesterol (40-60) mg/dL Urine Protein (Negative) Urine Blood (Negative) Ur Leukocyte Esterase (Negative) Urine WBC (0-5) /hpf Urine WBC Clumps (None) /hpf Thrombosis Risk Factor Assmnt - DVT/VTE Prophylaxis DVT/VTE Prophylaxis: Pharmacologic Prophylaxis ordered - Choose All That Apply Any of the Below Risk Factors Present?: Yes Each Factor Represents 1 point: Medical pt on bed rest, Obesity (BMI >25) Each Risk Factor Represents 2 Points: Central venous access Each Risk Factor Represents 3 Points: Age 75 years or older Other congenital or acquired thrombophilia - If yes, enter type in comment: No Thrombosis Risk Factor Assessment Total Risk Factor Score: 7 Thrombosis Risk Factor Assessment Level: High Risk Assessment and Plan Plan: 1. Elevated troponin. Patient has been started on Cardizem drip, aspirin 81 mg daily. Continue Lipitor 10 mg at bedtime. Cardiology consult requested. 2. UTI. Continue IV fluid decreased to KVO only, continue IV antibiotic in the form of Zosyn, urine culture, blood culture, ID consultation. 3. Recent hospitalization for ESBL E. coli UTI with E. coli sepsis and septic shock. Patient is continued to have hypotensive blood pressure readings since discharge. Patient has been started on med a drain which will be continued. Patient noted to also be on [facility] at the [facility]. 4. 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 Continue Myrbetriq 50 mg daily. 3. Diabetes mellitus type 2, insulin requiring. Hemoglobin A1c is 6.4. Continue metformin, Tradjenta and insulin scale. 4. Hypertension. Patient is off lisinopril and Lopressor due to hypotension. 5. CAD status post CABG. Continue Lipitor 10 mg orally once every day. 6. Status post aortic valve replacement. Stable. 7. Hyperlipidemia. Continue Lipitor 10 mg at bedtime. 8. Chronic kidney disease stage II. 9. Anemia of chronic disease. 10. Gastrointestinal prophylaxis. Continue Protonix 40 mg orally once every day. 11. DVT prophylaxis. ANGELINA belle and ANITAs. 12. Patient is full code. 13. Admit to inpatient. Estimate length of stay 2 midnights. Discharge plan: Most likely return to [facility] to complete course of subacute rehab. Impression and plan of care have been directed as dictated by the signing physician. Amrita Núñez nurse practitioner acting as scribe for signing physician.
[2018-03-25] MEDS: INSULIN ASPART 100 UNIT/ML 1 ML 10 ML VIAL SQ SCH ×3 (12:35→21:06)
--- NOTE | 2018-03-25 13:40 | P.CRDCN ---
History of Present Illness Consult date: 03/25/18 Requesting physician: Evy Worthington Reason for Consult (text): Hypotension History of present illness: This is an 82-year-old male patient of Dr. Self with past medical history significant for prostate cancer status post radiation therapy, coronary artery disease status post 3 vessel CABG and aortic valve replacement, diabetes mellitus type 2 insulin requiring, hypertension, hyperlipidemia. Patient had a recent hospitalization February 25 through March 06 which time he was treated for ESBL E. coli UTI with E. coli sepsis and septic shock, acute hypoxic respiratory failure requiring BiPAP secondary to sepsis, pulmonary edema with possible acute systolic heart failure and possible pneumonia, acute kidney injury. Patient was followed during the hospitalization by Dr. Felix and Dr. Block. Patient was discharged on 1 week of IV Invanz to [facility] where he has been residing since. Patient states at least a week ago his blood pressure has been on the low side and he has not been able to stand or participate with physical therapy. He did see Dr. Perkins's nurse practitioner and medication changes were made however patient continued to have low blood pressure. Yesterday, he had an appointment scheduled with Dr. Corrigan however once the ambulance brought him to Dr. Corrigan's office, it was found that Dr. Corrigan was called away for heart catheterization and was unable to see the patient. Patient was then brought to [facility] emergency center for evaluation. Patient was found to be afebrile, pulse ox 96%, heart rate running in the 80s and 90s, blood pressure 102/75. White count 6.4, hemoglobin 11.5. Sodium 138, potassium 3.3, BUN 17, creatinine 1.38, blood sugar 127. Urinalysis was cloudy, leukoesterase large, WBC greater than 182 and Elena BC clumps many. EKG was a sinus rhythm with nonspecific ST changes. Troponin 0.049, 0.052 and 0.051. Patient was seen and examined this morning, blood pressure this morning 122/70, 108/60. 97% on room air. Lab data from this morning, white blood cell count 4.1, hemoglobin 11.1, platelet count 144. Sodium 141, potassium 3.6, BUN 13, creatinine 1.2. Magnesium 1.9. At the time of my examination this morning, patient is feeling much better overall. He denies having any chest discomfort. His abnormality in troponin could be secondary to the hypotension. 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 Anemia with blood transfusions.02/25/2018 WAS IN [facility] FOR SEPSIS UTI ECOLI INFECTION. HAS A MEDLINE PORT LEFT UPPER ARM FROM [facility] 03/22/2018 History of Any Multi-Drug Resistant Organisms: ESBL Date of last positivie culture/infection: 02/25/18 MDRO Source:: urine, blood esbl Past Surgical History: Cardiac Valve Replacement, Heart Catheterization Additional Past Surgical History / Comment(s): 03/02/17 cystoscopy/evacuation clots and fulguration bladder, 01/20/12 CABG-3 vessel with aortic valve. Past Anesthesia/Blood Transfusion Reactions: No Reported Reaction Past Psychological History: No Psychological Hx Reported Additional Psychological History / Comment(s): Pt resides with his spouse. He ambulates with a walker. He drives.served in [employer]. 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 He drinks occasional alcohol. He denies illicit drug use. Past Drug Use History: None Reported - Past Family History Mother Family Medical History: Myocardial Infarction (NH) Additional Family Medical History / Comment(s): Mother at age 67 from a myocardial infarction. Father Family Medical History: Diabetes Mellitus, Myocardial Infarction (NH) Additional Family Medical History / Comment(s): Father from complications from diabetes mellitus that was uncontrolled with frequent episodes of coma. He also has history of myocardial infarction. The patient has no children and no siblings. Medications and Allergies Home Medications Medication Instructions Recorded Confirmed Type Allopurinol [Zyloprim] 300 mg PO Q48H 03/01/17 03/24/18 History DULoxetine HCL [Cymbalta] 30 mg PO DAILY 03/01/17 03/24/18 History Docusate [Colace] 100 mg PO BID 03/01/17 03/24/18 History Glucosam/Donnie-Msm1/C/Pardeep/Bosw 1 tab PO HS 03/01/17 03/24/18 History [Glucosamine-Chondroitin Tablet] Multivitamins, Thera [Multivitamin 1 tab PO DAILY 03/01/17 03/24/18 History (formulary)] Simvastatin [Zocor] 20 mg PO HS 03/01/17 03/24/18 History Mirabegron [Myrbetriq] 50 mg PO DAILY 06/27/17 03/24/18 History Omeprazole 20 mg PO BID 06/27/17 03/24/18 History sitaGLIPtin PHOS/metFORMIN HCL 1 tab PO HS 06/27/17 03/24/18 History [Janumet 50-500 mg Tablet] Calcium Carbonate/Vitamin D3 1 tab PO HS 10/11/17 03/24/18 History [Calcium 600-Vit D3 200 Tablet] Turmeric Root Extract [Turmeric] 500 mg PO DAILY 10/11/17 03/24/18 History Ferrous Sulfate [Iron (65 MG 325 mg PO DAILY 02/25/18 03/24/18 History Elemental)] Torsemide [Demadex] 40 mg PO BID 02/25/18 03/24/18 History Acetaminophen Tab [Tylenol] 650 mg PO Q6H PRN tab 03/06/18 03/24/18 Rx Gabapentin [Neurontin] 300 mg PO HS #0 03/06/18 03/24/18 Rx Bisacodyl [Dulcolax] 10 mg RECTAL DAILY PRN 03/24/18 03/24/18 History Famotidine [Pepcid] 20 mg PO BID 03/24/18 03/24/18 History Fludrocortisone Acetate 0.1 mg PO BID 03/24/18 03/24/18 History Insulin Aspart [NovoLOG See Protocol SQ ACHS 03/24/18 03/24/18 History (formulary)] Magnesium Hydroxide [Milk of 2,400 mg PO DAILY PRN 03/24/18 03/24/18 History Magnesia] Midodrine HCl [ProAmantine] 5 mg PO TID 03/24/18 03/24/18 History Na Phos,M-B/Na Phos,Di-Ba [Fleet 133 ml RECTAL DAILY PRN 03/24/18 03/24/18 History Adult] Nystatin 100,000 Unit/gm Oint 1 applic TOPICAL BID 03/24/18 03/24/18 History [Mycostatin Oint] Tamsulosin HCl [Flomax] 0.4 mg PO DAILY 03/24/18 03/24/18 History Triad 1 applic TOPICAL BID 03/24/18 03/24/18 History Allergies Allergy/AdvReac Type Severity Reaction Status Date / Time No Known Allergies Allergy Verified 03/24/18 14:20 Physical Exam Vitals: Vital Signs Temp Pulse Pulse Resp BP BP BP 03/25/18 12:00 97.0 F L 80 17 108/60 03/25/18 08:00 97.1 F L 84 17 123/74 03/25/18 06:10 101/64 105/57 03/25/18 04:00 98.3 F 85 17 03/24/18 23:55 81 17 03/24/18 23:52 98.2 F 81 17 03/24/18 20:00 98 F 83 17 03/24/18 18:36 97.7 F 83 16 03/24/18 18:00 97.8 F 86 18 120/77 03/24/18 17:30 86 20 91/70 03/24/18 17:00 91 16 104/72 03/24/18 16:30 85 18 113/76 03/24/18 16:00 89 18 113/71 03/24/18 15:00 91 18 113/71 03/24/18 14:30 86 18 102/75 03/24/18 14:09 03/24/18 14:05 98.0 F 97 20 102/75 BP Pulse Ox 03/25/18 12:00 97 03/25/18 08:00 97 03/25/18 06:10 142/76 03/25/18 04:00 123/79 97 03/24/18 23:55 03/24/18 23:52 115/72 96 03/24/18 20:00 127/68 96 03/24/18 18:36 123/75 96 03/24/18 18:00 95 03/24/18 17:30 95 03/24/18 17:00 96 03/24/18 16:30 96 03/24/18 16:00 97 03/24/18 15:00 95 03/24/18 14:30 95 03/24/18 14:09 95 03/24/18 14:05 96 Intake and Output 03/24/18 03/25/18 03/25/18 22:59 06:59 14:59 Intake Total 557 800 200.833 Output Total 450 300 Balance 557 350 -99.167 Intake: IV 500 95 Sodium Chloride 0.9% 1, 20 000 ml @ 20 mls/hr IV . Q24H [facility] Rx#:[id number] Sodium Chloride 0.9% 1, 75 000 ml @ 75 mls/hr IV . [id number] [facility] Rx#:[id number] Sodium Chloride 0.9% 500 500 ml 500 ml @ 999 mls/hr IV .Q31M [facility] Rx#:[id number] Intake, IV Titration 57 105.833 Amount Heparin Sod,Pork in 0.45% 57 105.833 NaCl 25,000 unit In 0.45 % NaCl 1 250ml.bag @ 9. 462 UNITS/KG/HR 10 mls/hr IV .Q24H [facility] Rx#: [id number] Oral 800 Output: Urine 450 300 Other: Voiding Method Diaper Diaper Diaper Incontinent Incontinent Incontinent Weight 105.9 kg PHYSICAL EXAMINATION: GENERAL: 82-year-old gentleman in no acute distress at the time of my examination HEENT: Head is atraumatic, normocephalic. Pupils equal, round. Sclera anicteric. Conjunctiva are clear. Mucous membranes of the mouth are moist. Neck is supple. There is no elevated jugular venous pressure. No carotid bruit is heard. HEART EXAMINATION: Heart S1 and S2 with soft systolic murmur is heard. CHEST EXAMINATION: Lungs are clear to auscultation and precussion. No chest wall tenderness is noted on palpation or with deep breathing. ABDOMEN: Soft, nontender. Bowel sounds are heard. No organomegaly noted. EXTREMITIES: 2+ peripheral pulses with trace evidence of peripheral edema and no calf tenderness noted. NEUROLOGIC patient is awake, alert and oriented 3 . . Results - Results Results: EKG shows a normal sinus rhythm left axis deviation and T wave inversion noted in the lateral leads. 03/25/18 05:54 03/25/18 05:53 Cardiac Enzymes 03/24/18 03/24/18 03/24/18 Range/Units 14:25 14:25 21:49 AST 55 (17-59) U/L CK-MB (CK-2) 2.7 H 2.8 H (0.0-2.4) ng/mL Troponin I 0.049 H* 0.052 H* (0.000-0.034) ng/mL 03/25/18 Range/Units 01:59 AST (17-59) U/L CK-MB (CK-2) 3.0 H (0.0-2.4) ng/mL Troponin I 0.051 H* (0.000-0.034) ng/mL Coagulation 03/24/18 03/25/18 Range/Units 21:49 05:54 APTT 57.0 H 47.7 H (22.0-30.0) sec Lipids 03/25/18 Range/Units 01:59 Triglycerides 187 H (<150) mg/dL Cholesterol 153 (<200) mg/dL HDL Cholesterol 65 H (40-60) mg/dL CBC 03/24/18 03/25/18 Range/Units 14:25 05:54 WBC 6.4 4.1 (3.8-10.6) k/uL RBC 3.92 L 3.66 L (4.30-5.90) m/uL Hgb 11.5 L 11.1 L (13.0-17.5) gm/dL Hct 35.8 L 33.9 L (39.0-53.0) % Plt Count 174 144 L (150-450) k/uL Comprehensive Metabolic Panel 03/24/18 03/25/18 Range/Units 14:25 05:53 Sodium 138 141 (137-145) mmol/L Potassium 3.3 L 3.6 (3.5-5.1) mmol/L Chloride 97 L 103 (98-107) mmol/L Carbon Dioxide 30 30 (22-30) mmol/L BUN 17 13 (9-20) mg/dL Creatinine 1.38 H 1.29 H (0.66-1.25) mg/dL Glucose 127 H 118 H (74-99) mg/dL Calcium 9.1 8.7 (8.4-10.2) mg/dL AST 55 (17-59) U/L ALT 54 (21-72) U/L Alkaline Phosphatase 112 (38-126) U/L Total Protein 7.1 (6.3-8.2) g/dL Albumin 3.8 (3.5-5.0) g/dL Current Medications Generic Name Dose Route Start Last Admin Trade Name Freq PRN Reason Stop Dose Admin Aspirin 325 mg 03/25/18 09:00 03/25/18 09:11 Aspirin PO 325 mg DAILY DELMY Administration Atorvastatin Calcium 10 mg 03/24/18 21:00 03/24/18 19:45 Lipitor PO 10 mg HS DELMY Administration Famotidine 20 mg 03/24/18 21:00 03/25/18 09:11 Pepcid PO 20 mg BID DELMY Administration Ferrous Sulfate 325 mg 03/25/18 09:00 03/25/18 09:11 Feosol PO 325 mg DAILY DELMY Administration Gabapentin 300 mg 03/24/18 21:00 03/24/18 19:45 Neurontin PO 300 mg HS DELMY Administration Heparin Sodium/Sodium Chloride 250 mls @ 10 mls/hr 03/24/18 16:45 03/25/18 09 :14 25,000 unit/ Sodium Chloride IV 9.46 units/kg/hr .Q24H DELMY 10 mls/hr Titration Protocol 9.462 UNITS/KG/HR Piperacillin Sod/Tazobactam 100 mls @ 25 mls/hr 03/25/18 16:00 Sod 3.375 gm/ Sodium Chloride IVPB Q8HR DELMY Sodium Chloride 1,000 mls @ 20 mls/hr 03/25/18 08:30 03/25/18 09:10 Saline 0.9% IV 20 mls/hr .Q24H DELMY Administration Insulin Aspart 0 unit 03/25/18 12:30 03/25/18 12:35 Novolog SQ 2 unit ACHS DELMY Administration Protocol Linagliptin 5 mg 03/24/18 21:00 03/24/18 20:40 Tradjenta PO 5 mg HS DELMY Administration Magnesium Hydroxide 2,400 mg 03/24/18 16:36 Milk Of Magnesia PO DAILY PRN Constipation Metformin HCl 500 mg 03/24/18 21:00 03/24/18 20:40 Glucophage PO 500 mg HS DELMY Administration Midodrine 5 mg 03/25/18 07:30 03/25/18 12:35 Proamatine PO 5 mg AC-TID DELMY Administration Miscellaneous Information 1 each 03/24/18 21:44 Potassium Per Protocol MISCELLANE DAILY PRN Per Protocol Protocol Multivitamins 1 each 03/25/18 12:00 03/25/18 09:11 Theragran PO 1 each DAILY@1200 DELMY Administration Nitroglycerin 0.4 mg 03/24/18 16:34 Nitrostat SUBLINGUAL Q5M PRN Chest Pain Non-Formulary Medication 50 mg 03/25/18 09:00 03/25/18 10:04 Mirabegron [Myrbetriq] PO Not Given DAILY DELMY Nystatin 1 applic 03/24/18 21:00 03/25/18 09:12 Mycostatin Oint TOPICAL 1 applic BID DELMY Administration Pantoprazole Sodium 40 mg 03/25/18 07:30 03/25/18 06:23 Protonix PO 40 mg AC-BRKFST DELMY Administration Sodium Biphosphate/Sodium Phosphate 133 ml 03/24/18 16:36 Fleet Adult RECTAL DAILY PRN Constipation Torsemide 40 mg 03/25/18 09:00 03/25/18 09:11 Demadex PO 40 mg DAILY DELMY Administration Intake and Output 03/24/18 03/25/18 03/25/18 22:59 06:59 14:59 Intake Total 557 800 200.833 Output Total 450 300 Balance 557 350 -99.167 Intake: IV 500 95 Sodium Chloride 0.9% 1, 20 000 ml @ 20 mls/hr IV . Q24H [facility] Rx#:[id number] Sodium Chloride 0.9% 1, 75 000 ml @ 75 mls/hr IV . [id number] [facility] Rx#:[id number] Sodium Chloride 0.9% 500 500 ml 500 ml @ 999 mls/hr IV .Q31M [facility] Rx#:[id number] Intake, IV Titration 57 105.833 Amount Heparin Sod,Pork in 0.45% 57 105.833 NaCl 25,000 unit In 0.45 % NaCl 1 250ml.bag @ 9. 462 UNITS/KG/HR 10 mls/hr IV .Q24H [facility] Rx#: [id number] Oral 800 Output: Urine 450 300 Other: Voiding Method Diaper Diaper Diaper Incontinent Incontinent Incontinent Weight 105.9 kg 03/25/18 05:54 03/25/18 05:53 EKG Interpretations (text) EKG shows a normal sinus rhythm with T wave inversion in the lateral leads. Assessment and Plan Plan: Assessment and plan #1 hypotension, improved #2. UTI. 3. Recent hospitalization for ESBL E. coli UTI with E. coli sepsis and septic shock. Patient is continued to have hypotensive blood pressure readings since discharge. Patient has been started on med a drain which will be continued. Patient noted to also be on Florinef at the correction. 4. 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 3. Diabetes mellitus type 2, insulin requiring. Hemoglobin A1c is 6.4. 4. Hypertension. 5. CAD status post CABG. 6. Status post aortic valve replacement. 7. Hyperlipidemia. 8. Chronic kidney disease stage II. 9. Anemia of chronic disease. 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 Plan Patient did receive IV fluids on arrival here, dose of Demadex was decreased. We'll decrease aspirin 81 mg daily. Troponin abnormality likely secondary to hypotension. Discontinue IV heparin. Echocardiogram with Doppler study was performed in February which revealed an ejection fraction of 25-30%. Patient is not currently on ZEINAB inhibitor and beta festus which we will continue to hold at this time. DNP note has been reviewed, I agree with a documented findings and plan of care. Patient was seen and examined.
[2018-03-25 14:00] VITALS: BMI 33.5
[2018-03-25] MEDS ORDERED: PIPERACILLIN-TAZOBACTAM 3.375 GM in SODIUM CHLORIDE 0.9% 100 ML IVPB SCH (16:00)
[2018-03-25 17:24] LABS: Glucose,Whole Blood 122 mg/dL (75-99)
[2018-03-25] MEDS: ERTAPENEM 1 GM in SODIUM CHLORIDE 0.9% 50 ML IVPB SCH (18:31)
[2018-03-25 20:20] LABS: Glucose,Whole Blood 137 mg/dL (75-99)
[2018-03-25] MEDS: GABAPENTIN 300 MG CAP PO SCH (21:06)
[2018-03-25] MEDS: metFORMIN 500 MG TAB PO SCH (21:06)
[2018-03-25] MEDS: LINAGLIPTIN 5 MG TABLET PO SCH (21:06)
[2018-03-25] MEDS: ATORVASTATIN 10 MG TAB PO SCH (21:06)
[2018-03-26] MEDS: INSULIN ASPART 100 UNIT/ML 1 ML 10 ML VIAL SQ SCH ×4 (06:29→21:18)
[2018-03-26] MEDS: PANTOPRAZOLE 40 MG TABLET PO SCH (06:31)
[2018-03-26] MEDS: MIDODRINE 5 MG TAB PO SCH ×3 (06:31→18:32)
[2018-03-26 06:37] LABS: Glucose,Whole Blood 104 mg/dL (75-99)
[2018-03-26 06:38] LABS: Anisocytosis Slight; HCT 32.5 % (39.0-53.0); HGB 10.6 gm/dL (13.0-17.5); MCH 30.2 pg (25.0-35.0); MCHC 32.7 g/dL (31.0-37.0); MCV 92.3 fL (80.0-100.0); Mean Platelet Volume 7.7; Platelet Count 153 k/uL (150-450); RBC 3.52 m/uL (4.30-5.90); RDW 16.6 % (11.5-15.5)
[2018-03-26 06:47] LABS: Calcium 8.8 mg/dL (8.4-10.2); Potassium 3.6 mmol/L (3.5-5.1)
[2018-03-26] MEDS: FERROUS SULFATE 325 MG TAB PO SCH (08:27)
[2018-03-26] MEDS: ASPIRIN 81 MG PO SCH (08:28)
[2018-03-26] MEDS: ERTAPENEM 1 GM in SODIUM CHLORIDE 0.9% 50 ML IVPB SCH (08:28)
[2018-03-26] MEDS: FAMOTIDINE 20 MG TAB PO SCH ×2 (08:28→21:06)
[2018-03-26] MEDS: NON-FORMULARY DRUG (Mirabegron [Myrbetriq] 50 MG) PO SCH (08:29)
--- NOTE | 2018-03-26 09:21 | P.PN ---
Subjective Progress Note Date: 03/26/18 This is an 82-year-old male patient of Dr. Self with past medical history significant for prostate cancer status post radiation therapy, coronary artery disease status post 3 vessel CABG and aortic valve replacement, diabetes mellitus type 2 insulin requiring, hypertension, hyperlipidemia. Patient had a recent hospitalization February 25 through March 06 which time he was treated for ESBL E. coli UTI with E. coli sepsis and septic shock, acute hypoxic respiratory failure requiring BiPAP secondary to sepsis, pulmonary edema with possible acute systolic heart failure and possible pneumonia, acute kidney injury. Patient was followed during the hospitalization by Dr. Felix and Dr. Block. Patient was discharged on 1 week of IV Invanz to [facility] where he has been residing since. Patient states at least a week ago his blood pressure has been on the low side and he has not been able to stand or participate with physical therapy. He did see Dr. Perkins's nurse practitioner and medication changes were made however patient continued to have low blood pressure. Yesterday, he had an appointment scheduled with Dr. Corrigan however once the ambulance brought him to Dr. Corrigan's office, it was found that Dr. Corrigan was called away for heart catheterization and was unable to see the patient. Patient was then brought to [facility] emergency center for evaluation. Patient was found to be afebrile, pulse ox 96%, heart rate running in the 80s and 90s, but pressure 102/75. White count 6.4, hemoglobin 11.5. Sodium 138, potassium 3.3, BUN 17, creatinine 1.38, blood sugar 127. Urinalysis was cloudy, leukoesterase large, WBC greater than 182 and Elena BC clumps many. EKG was a sinus rhythm with nonspecific ST changes. Troponin 0.049, 0.052 and 0.051. Patient was started on a heparin drip and admitted to the selective care unit and consult requested with cardiology. Regarding urinary tract infection, patient will be started on Zosyn and consult placed with Dr. Block. Urine culture requested. Patient remains with PICC in the left arm. 03/26: Patient states that he is feeling much better today. He has been up in his room. He has also started this morning for his weight and felt okay. He did not have lightheadedness or dizziness. Blood pressure 141/73. Patient has been afebrile. Pulse ox 97% on room air. Patient didn't use CPAP at nighttime. Lab work is all stable. He did have a bowel movement this morning with no blood or tarriness. Dr. Block has changed antibiotics to ertapenem. Urine culture is in progress. IV fluids will be stopped. We will plan to monitor overnight and discharged back to [facility] tomorrow. PT and OT will be added. Review of Systems All systems: negative Constitutional: Reports fatigue, Reports poor appetite, Reports weakness, Denies chills, Denies fever Eyes: denies blurred vision, denies pain Ears, nose, mouth and throat: Denies vertigo, Denies dysphagia, Denies headache , Denies sore throat Cardiovascular: Denies chest pain, Denies dyspnea on exertion, Denies edema, Denies leg edema, Denies palpitations, Denies shortness of breath, Denies syncope Respiratory: Denies cough, Denies cough with sputum, Denies dyspnea, Denies excessive sputum, Denies hemoptysis, Denies home oxygen Gastrointestinal: Reports loss of appetite, Denies abdominal pain, Denies diarrhea, Denies nausea, Denies vomiting Genitourinary: Denies dysuria Musculoskeletal: Reports gait dysfunction, Reports muscle weakness, Denies frequent falls, Denies myalgias Integumentary: Denies pruritus, Denies rash, Denies wounds Neurological: Denies aphasia, Denies change in mentation, Denies confusion, Denies numbness, Denies seizures, Denies weakness Psychiatric: Denies anxiety, Denies depression Endocrine: Denies fatigue, Denies weight change Objective - Vital Signs Vital signs: Vital Signs Temp 98.0 F 03/26/18 04:00 Pulse 87 03/26/18 04:00 Resp 19 03/26/18 04:00 BP 125/70 03/26/18 04:00 Pulse Ox 98 03/26/18 04:00 Intake & Output 03/25/18 03/26/18 03/26/18 18:59 06:59 18:59 Intake Total 1577.666 600 Output Total 300 Balance 1277.666 600 Weight 105.9 kg 107.4 kg Intake: IV 920 600 Sodium Chloride 0.9% 1, 845 000 ml @ 75 mls/hr IV . [id number] [facility] Rx#:[id number] Sodium Chloride 0.9% 1, 75 600 000 ml @ 75 mls/hr IV . [id number] STA Rx#:[id number] Intake, IV Titration 157.666 Amount Heparin Sod,Pork in 0.45% 157.666 NaCl 25,000 unit In 0.45 % NaCl 1 250ml.bag @ 9. 462 UNITS/KG/HR 10 mls/hr IV .Q24H [facility] Rx#: [id number] Oral 500 Output: Urine 300 Other: Voiding Method Diaper Diaper Incontinent Incontinent # Voids 1 - Exam General appearance: average body habitus, no acute distress, patient is resting in bed - EENT Eyes: anicteric sclerae, EOMI, PERRLA, no ptosis, no scleral icterus, normal appearance ENT: hearing grossly normal, NA/AT, normal oropharynx, no thrush Ears: bilateral: normal - Neck Neck: no lymphadenopathy, normal ROM, no rigidity, no stridor, no thyromegaly Carotids: bilateral: upstroke normal - Respiratory Respiratory: bilateral: diminished, negative: dullness, rales, rhonchi, wheezing , prolonged expiration, prolonged inspiration - Cardiovascular Rhythm: regular Heart sounds: normal: S1, S2 Abnormal Heart Sounds: systolic murmur - Gastrointestinal General gastrointestinal: normal bowel sounds, soft, no splenomegaly, no tenderness, no umbilical hernia, no ventral hernia - Integumentary Integumentary: normal, normal turgor - Neurologic Neurologic: CNII-XII intact - Musculoskeletal Musculoskeletal: generalized weakness, strength equal bilaterally - Psychiatric Psychiatric: A&O x's 3, appropriate affect, intact judgment & insight - Labs CBC & Chem 7: 03/26/18 06:05 03/26/18 06:05 Labs: Abnormal Lab Results - Last 24 Hours (Table) 03/25/18 03/25/18 03/25/18 Range/Units 05:53 05:54 05:54 RBC 3.66 L (4.30-5.90) m/uL Hgb 11.1 L (13.0-17.5) gm/dL Hct 33.9 L (39.0-53.0) % RDW 16.4 H (11.5-15.5) % Plt Count 144 L (150-450) k/uL Lymphocytes # 0.7 L (1.0-4.8) k/uL APTT 47.7 H (22.0-30.0) sec Creatinine 1.29 H (0.66-1.25) mg/dL Glucose 118 H (74-99) mg/dL POC Glucose (mg/dL) (75-99) mg/dL 03/25/18 03/25/18 03/25/18 Range/Units 11:34 16:59 20:19 RBC (4.30-5.90) m/uL Hgb (13.0-17.5) gm/dL Hct (39.0-53.0) % RDW (11.5-15.5) % Plt Count (150-450) k/uL Lymphocytes # (1.0-4.8) k/uL APTT (22.0-30.0) sec Creatinine (0.66-1.25) mg/dL Glucose (74-99) mg/dL POC Glucose (mg/dL) 155 H 122 H 137 H (75-99) mg/dL 03/26/18 03/26/18 03/26/18 Range/Units 06:05 06:05 06:24 RBC 3.52 L (4.30-5.90) m/uL Hgb 10.6 L (13.0-17.5) gm/dL Hct 32.5 L (39.0-53.0) % RDW 16.6 H (11.5-15.5) % Plt Count (150-450) k/uL Lymphocytes # (1.0-4.8) k/uL APTT (22.0-30.0) sec Creatinine 1.31 H (0.66-1.25) mg/dL Glucose 106 H (74-99) mg/dL POC Glucose (mg/dL) 104 H (75-99) mg/dL Microbiology - Last 24 Hours (Table) 03/25/18 12:30 Urine Culture - Preliminary Urine,Catheterized Assessment and Plan Plan: 1. Elevated troponin. Patient has been started on heparin drip, aspirin 81 mg daily. Continue Lipitor 10 mg at bedtime. Cardiology consult requested. 2. Hypotension for which Demadex was decreased to once daily. Continue midodrine. Patient completed course of IV fluids which will be discontinued. 3. UTI. IV antibiotic changed to ertapenem per Dr. Block, urine culture in progress, blood culture, ID consultation appreciated. 4. Recent hospitalization for ESBL E. coli UTI with E. coli sepsis and septic shock. Patient is continued to have hypotensive blood pressure readings since discharge. Patient has been started on midodrine which will be continued. Patient noted to also be on Florinef at the senior living. 5. 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 Continue Myrbetriq 50 mg daily. 6. Diabetes mellitus type 2, insulin requiring. Hemoglobin A1c is 6.4. Continue metformin, Tradjenta and insulin scale. 7. Hypertension. Patient is off lisinopril and Lopressor due to hypotension. 8. CAD status post CABG. Continue Lipitor 10 mg orally once every day. 9. Status post aortic valve replacement. Stable. 10. Hyperlipidemia. Continue Lipitor 10 mg at bedtime. 11. Chronic kidney disease stage II. 12. Anemia of chronic disease. 13. Gastrointestinal prophylaxis. Continue Protonix 40 mg orally once every day. 14. DVT prophylaxis. ANGELINA belle and SCDs. 15. Patient is full code. Discharge plan: Most likely return to [facility] to complete course of subacute rehab. Plan for discharge on Tuesday. PT and OT added. Patient requires insurance authorization Impression and plan of care have been directed as dictated by the signing physician. Amrita Núñez nurse practitioner acting as scribe for signing physician.
--- NOTE | 2018-03-26 10:40 | CONS ---
CONSULTATION DATE OF SERVICE: 03/25/2018 REASON FOR CONSULTATION: Urinary tract infection. HISTORY OF PRESENT ILLNESS: The patient is an 82-year-old male who was recently admitted to [facility] with sepsis secondary to urinary source. The patient did have evidence ESBL E coli bacteremia with a positive culture from the same pathogen. Ultrasound was negative for any structural abnormality. The patient was on IV antibiotic from February 25 till March 06, and on discharge was recommend to have a week of IV Invanz to finish total course of antibiotic therapy which the patient received at the long term. The patient's PICC line has not been discontinued. The patient apparently seemed to have a problem with low blood pressure over the last 1 week, feeling weak and unable to participate in his physical therapy. The patient's blood pressure has been running low. The patient was supposed to follow up with his records management analyst in the outpatient setting, which could not be done as his physician was . Subsequent the patient was taken to the ER for further evaluation. On arrival to the ER, the patient's blood pressure has been 101/64. He is not running any fever, however, the patient did have a UA obtained which showed large leukocyte esterase with 1 to 2 WBCs. The patient's white count has been normal. Electrolytes normal. Creatinine was 1.29. The patient was started on Zosyn. Infectious Disease was consulted for further recommendation regarding antibiotic therapy. REVIEW OF SYSTEMS: Positive points have been mentioned in HPI. The rest of the systems have been negative. PAST MEDICAL HISTORY: Recent stay in the hospital for ESBL E coli bacteremia, urinary tract infection, coronary artery disease, diabetes mellitus, hypertension, hyperlipidemia, osteoarthritis, history of prostate cancer, adrenal insufficiency, sleep apnea, and radiation cystitis. PAST SURGICAL HISTORY: Heart catheterization and cardiac valve replacement. SOCIAL HISTORY: Remote history of smoking. No drinking or drug use. FAMILY HISTORY: Mother with history of [place]. Father history of diabetes and coronary disease. ALLERGIES: No known drug allergies. MEDICATIONS: Patient is currently on: 1. Zosyn. 2. Aspirin. 3. Lipitor. 4. Pepcid. 5. Iron sulfate. 6. NovoLog. 7. Milk of magnesia. 8. Glucophage. 9. Midodrine. 10.Theragran. 11.Nitrostat. 12.Protonix. EXAMINATION: Blood pressure is 128/76 with a pulse of 80, temperature 97.6, he is 98% on room air. GENERAL DESCRIPTION: An elderly male lying in bed in no distress. No tachypnea or accessory muscle of respiration use. HEENT: Shows pallor, no scleral icterus. Oral mucosa is dry. No pharyngeal erythema or thrush. NECK: Trachea central. No thyromegaly. LUNGS: Unlabored breathing. Clear to auscultation anteriorly. No wheeze or crackle. HEART: S1, S2. Regular rate and rhythm. ABDOMEN: Soft, no tenderness. No guarding. No organomegaly. EXTREMITIES: No edema of the feet. SKIN: No rash or mass palpable. NEUROLOGIC: The patient is awake, alert, oriented. Mood and affect normal. LABS: Hemoglobin 11.1, white count 4.1. BUN of 13, creatinine 1.29. UA positive as mentioned above. DIAGNOSTIC IMPRESSION AND PLAN: Patient is being admitted to the hospital for the weakness and no energy and apparently hypotension in outpatient setting. However no significant hypotension has been noticed since admission. The patient who does not have any fever or elevated white count. However, recently did have sepsis secondary to source with ESBL pathogen with mildly positive underlying UTI. A form of the same pathogen is not entirely excluded. PLAN: 1. Discontinue Zosyn. 2. Currently on Invanz 1 g daily while waiting for the final ID and sensitivity of this pathogen. 3. We will follow up on clinical condition and culture to further adjust medication if needed. Thank you for this consultation. Will follow this patient along with you. MMODL / IJN: [id number] /
[2018-03-26 12:16] LABS: Glucose,Whole Blood 107 mg/dL (75-99)
[2018-03-26] MEDS: MULTIVITAMINS, THERA 1 EACH TAB PO SCH (12:31)
[2018-03-26] MEDS: NYSTATIN 100,000 UNIT/GM OINT 30 GM TUBE TOPICAL SCH ×2 (12:32→21:06)
--- NOTE | 2018-03-26 15:53 | P.PN ---
Subjective Progress Note Date: 03/26/18 This is an 82-year-old male patient of Dr. Self with past medical history significant for prostate cancer status post radiation therapy, coronary artery disease status post 3 vessel CABG and aortic valve replacement, diabetes mellitus type 2 insulin requiring, hypertension, hyperlipidemia. Patient had a recent hospitalization February 25 through March 06 which time he was treated for ESBL E. coli UTI with E. coli sepsis and septic shock, acute hypoxic respiratory failure requiring BiPAP secondary to sepsis, pulmonary edema with possible acute systolic heart failure and possible pneumonia, acute kidney injury. Patient was followed during the hospitalization by Dr. Felix and Dr. Block. Patient was discharged on 1 week of IV Invanz to [facility] where he has been residing since. Patient states at least a week ago his blood pressure has been on the low side and he has not been able to stand or participate with physical therapy. He did see Dr. Perkins's nurse practitioner and medication changes were made however patient continued to have low blood pressure. Yesterday, he had an appointment scheduled with Dr. Corrigan however once the ambulance brought him to Dr. Corrigan's office, it was found that Dr. Corrigan was called away for heart catheterization and was unable to see the patient. Patient was then brought to [facility] emergency center for evaluation. Patient was found to be afebrile, pulse ox 96%, heart rate running in the 80s and 90s, blood pressure 102/75. White count 6.4, hemoglobin 11.5. Sodium 138, potassium 3.3, BUN 17, creatinine 1.38, blood sugar 127. Urinalysis was cloudy, leukoesterase large, WBC greater than 182 and Elena BC clumps many. EKG was a sinus rhythm with nonspecific ST changes. Troponin 0.049, 0.052 and 0.051. Patient was seen and examined this morning, blood pressure this morning 122/70, 108/60. 97% on room air. Lab data from this morning, white blood cell count 4.1, hemoglobin 11.1, platelet count 144. Sodium 141, potassium 3.6, BUN 13, creatinine 1.2. Magnesium 1.9. At the time of my examination this morning, patient is feeling much better overall. He denies having any chest discomfort. His abnormality in troponin could be secondary to the hypotension. 03/26/2018 Patient seen and examined today overall feeling significantly better. Up ambulating without any difficulty. No lightheadedness or dizziness today. Blood pressure 140/70, 97% on room air. Lab work remaining stable. IV fluids have been discontinued. We will consider the addition of a small diuretic from tomorrow. We will also have the nurse check orthostatics again today. Objective - Vital Signs Vital signs: Vital Signs Temp 97.7 F 03/26/18 11:42 Pulse 83 03/26/18 11:42 Resp 20 03/26/18 11:42 BP 123/68 03/26/18 11:42 Pulse Ox 96 03/26/18 11:42 Intake & Output 03/25/18 03/26/18 03/26/18 18:59 06:59 18:59 Intake Total 1577.666 600 180 Output Total 300 Balance 1277.666 600 180 Weight 105.9 kg 107.4 kg Intake: IV 920 600 Sodium Chloride 0.9% 1, 845 000 ml @ 75 mls/hr IV . [id number] [facility] Rx#:[id number] Sodium Chloride 0.9% 1, 75 600 000 ml @ 75 mls/hr IV . [id number] [facility] Rx#:[id number] Intake, IV Titration 157.666 Amount Heparin Sod,Pork in 0.45% 157.666 NaCl 25,000 unit In 0.45 % NaCl 1 250ml.bag @ 9. 462 UNITS/KG/HR 10 mls/hr IV .Q24H [facility] Rx#: [id number] Oral 500 180 Output: Urine 300 Other: Voiding Method Diaper Diaper Diaper Incontinent Incontinent Incontinent # Voids 1 1 - Exam PHYSICAL EXAMINATION: GENERAL: 82-year-old gentleman in no acute distress at the time of my examination HEENT: Head is atraumatic, normocephalic. Pupils equal, round. Sclera anicteric. Conjunctiva are clear. Mucous membranes of the mouth are moist. Neck is supple. There is no elevated jugular venous pressure. No carotid bruit is heard. HEART EXAMINATION: Heart S1 and S2 with soft systolic murmur is heard. CHEST EXAMINATION: Lungs are clear to auscultation and precussion. No chest wall tenderness is noted on palpation or with deep breathing. ABDOMEN: Soft, nontender. Bowel sounds are heard. No organomegaly noted. EXTREMITIES: 2+ peripheral pulses with trace evidence of peripheral edema and no calf tenderness noted. NEUROLOGIC patient is awake, alert and oriented 3 . - Labs CBC & Chem 7: 03/26/18 06:05 03/26/18 06:05 Labs: Abnormal Lab Results - Last 24 Hours (Table) 03/25/18 03/25/18 03/26/18 Range/Units 16:59 20:19 06:05 RBC 3.52 L (4.30-5.90) m/uL Hgb 10.6 L (13.0-17.5) gm/dL Hct 32.5 L (39.0-53.0) % RDW 16.6 H (11.5-15.5) % Creatinine (0.66-1.25) mg/dL Glucose (74-99) mg/dL POC Glucose (mg/dL) 122 H 137 H (75-99) mg/dL 03/26/18 03/26/18 03/26/18 Range/Units 06:05 06:24 12:07 RBC (4.30-5.90) m/uL Hgb (13.0-17.5) gm/dL Hct (39.0-53.0) % RDW (11.5-15.5) % Creatinine 1.31 H (0.66-1.25) mg/dL Glucose 106 H (74-99) mg/dL POC Glucose (mg/dL) 104 H 107 H (75-99) mg/dL Microbiology - Last 24 Hours (Table) 03/25/18 13:23 Blood Culture - Preliminary Blood No Growth after 24 hours 03/25/18 12:30 Urine Culture - Final Urine,Catheterized Assessment and Plan Plan: Assessment and plan #1 hypotension, improved #2. UTI. 3. Recent hospitalization for ESBL E. coli UTI with E. coli sepsis and septic shock. Patient is continued to have hypotensive blood pressure readings since discharge. Patient has been started on med a drain which will be continued. Patient noted to also be on Florinef at the intermediate. 4. 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 3. Diabetes mellitus type 2, insulin requiring. Hemoglobin A1c is 6.4. 4. Hypertension. 5. CAD status post CABG. 6. Status post aortic valve replacement. 7. Hyperlipidemia. 8. Chronic kidney disease stage II. 9. Anemia of chronic disease. 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 Plan Cardiology's perspective, we will continue the patient on his current medications. Consider resuming a small dose of Demadex from tomorrow morning. We will have the nurse check one more set of orthostatics today. Arrangements are being made for possible transfer back to [facility] tomorrow. DNP note has been reviewed, I agree with a documented findings and plan of care. Patient was seen and examined.
[2018-03-26 17:14] LABS: Glucose,Whole Blood 91 mg/dL (75-99)
[2018-03-26] MEDS: ATORVASTATIN 10 MG TAB PO SCH (21:06)
[2018-03-26] MEDS: LINAGLIPTIN 5 MG TABLET PO SCH (21:06)
[2018-03-26] MEDS: metFORMIN 500 MG TAB PO SCH (21:06)
[2018-03-26] MEDS: GABAPENTIN 300 MG CAP PO SCH (21:06)
[2018-03-26 21:17] LABS: Glucose,Whole Blood 98 mg/dL (75-99)
--- NOTE | 2018-03-26 23:04 | PN ---
PROGRESS NOTE DATE OF SERVICE: 03/26/2018 REASON FOR FOLLOWUP: Urinary tract infection. INTERVAL HISTORY: The patient is currently afebrile. He is breathing comfortably. The patient denies having any chest pain, shortness of breath or cough. No abdominal pain. No diarrhea. EXAM: Blood pressure 130/55 with a pulse of 70, temperature 97.6. He is 98% on room air. General description is an elderly male lying in bed in no distress. Respiratory system: Unlabored breathing. Clear to auscultation anteriorly. Heart S1, S2. Regular rate and rhythm. Abdomen soft, no tenderness. LABORATORY DATA: Hemoglobin 10.6, white count 4.0 with a BUN of 13, creatinine 1.31. Blood and urine culture currently came back negative. DIAGNOSTIC IMPRESSION AND PLAN: Patient admitted to the hospital with hypertension, could have been prerenal with concern for possible urinary tract infection. The patient's UA was positive in this patient who did have recent ESBL E coli sepsis. Currently, both blood and urine culture negative and if remains to be negative, recommend to discontinue the Invanz and also discontinue his midline before discharge back to the intermediate for rehab. Continue supportive care. MMODL / IJN: [id number] /
[2018-03-27 05:59] LABS: Glucose,Whole Blood 102 mg/dL (75-99)
[2018-03-27] MEDS: INSULIN ASPART 100 UNIT/ML 1 ML 10 ML VIAL SQ SCH ×3 (06:17→16:13)
[2018-03-27] MEDS: PANTOPRAZOLE 40 MG TABLET PO SCH (06:20)
[2018-03-27] MEDS: MIDODRINE 5 MG TAB PO SCH ×3 (06:20→17:31)
[2018-03-27] MEDS: NON-FORMULARY DRUG (Mirabegron [Myrbetriq] 50 MG) PO SCH (08:10)
[2018-03-27] MEDS: ERTAPENEM 1 GM in SODIUM CHLORIDE 0.9% 50 ML IVPB SCH (08:11)
[2018-03-27] MEDS: FERROUS SULFATE 325 MG TAB PO SCH (08:11)
[2018-03-27] MEDS: ASPIRIN 81 MG PO SCH (08:11)
[2018-03-27] MEDS: NYSTATIN 100,000 UNIT/GM OINT 30 GM TUBE TOPICAL SCH (08:11)
[2018-03-27] MEDS: FAMOTIDINE 20 MG TAB PO SCH (08:11)
--- NOTE | 2018-03-27 09:30 | P.DS ---
Providers Date of admission: 03/24/18 16:38 Expected date of discharge: 03/27/18 Attending physician: Barney Rogers Consults: 03/24/18 16:34 Consult Physician Urgent Consulting Provider: Logan Corrigan Consult Reason/Comments: Elevated troponin, orthostatic hypotension Do you want consulting provider notified?: Yes 03/25/18 08:12 Consult Physician Routine Consulting Provider: Charli Block Consult Reason/Comments: uti Do you want consulting provider notified?: Yes Primary care physician: [facility] Hospital Course: This is an 82-year-old male patient of Dr. Self with past medical history significant for prostate cancer status post radiation therapy, coronary artery disease status post 3 vessel CABG and aortic valve replacement, diabetes mellitus type 2 insulin requiring, hypertension, hyperlipidemia. Patient had a recent hospitalization February 25 through March 06 which time he was treated for ESBL E. coli UTI with E. coli sepsis and septic shock, acute hypoxic respiratory failure requiring BiPAP secondary to sepsis, pulmonary edema with possible acute systolic heart failure and possible pneumonia, acute kidney injury. Patient was followed during the hospitalization by Dr. Felix and Dr. Block. Patient was discharged on 1 week of IV Invanz to [facility] where he has been residing since. Patient states at least a week ago his blood pressure has been on the low side and he has not been able to stand or participate with physical therapy. He did see Dr. Perkins's nurse practitioner and medication changes were made however patient continued to have low blood pressure. Yesterday, he had an appointment scheduled with Dr. Corrigan however once the ambulance brought him to Dr. Corrigan's office, it was found that Dr. Corrigan was called away for heart catheterization and was unable to see the patient. Patient was then brought to [facility] emergency center for evaluation. Patient was found to be afebrile, pulse ox 96%, heart rate running in the 80s and 90s, but pressure 102/75. White count 6.4, hemoglobin 11.5. Sodium 138, potassium 3.3, BUN 17, creatinine 1.38, blood sugar 127. Urinalysis was cloudy, leukoesterase large, WBC greater than 182 and Elena BC clumps many. EKG was a sinus rhythm with nonspecific ST changes. Troponin 0.049, 0.052 and 0.051. Patient was started on a heparin drip and admitted to the selective care unit and consult requested with cardiology. Regarding urinary tract infection, patient will be started on Zosyn and consult placed with Dr. Block. Urine culture requested. Patient remains with PICC in the left arm. 03/26: Patient states that he is feeling much better today. He has been up in his room. He has also started this morning for his weight and felt okay. He did not have lightheadedness or dizziness. Blood pressure 141/73. Patient has been afebrile. Pulse ox 97% on room air. Patient didn't use CPAP at nighttime. Lab work is all stable. He did have a bowel movement this morning with no blood or tarriness. Dr. Block has changed antibiotics to ertapenem. Urine culture is in progress. IV fluids will be stopped. We will plan to monitor overnight and discharged back to [facility] tomorrow. PT and OT will be added. 03/27: Blood pressure this morning is running between 102/60 and 149/68. Patient did use CPAP during the night. He has been afebrile. Heart rate running in the 60s and 70s. Urine culture returned with no growth in finalized. Dr. Block has recommended discontinuing Invanz and midline and he can be discharged back to [facility]. Patient will be discharged back to [facility] once insurance authorization is obtained. Patient requested to be discharged home but according to physical therapy, he still requires intensive therapy. Patient's also states that she was unable to help him at home. Patient will be discharged once all arrangements are completed. Discharge diagnoses: 1. Elevated troponin. Acute coronary syndrome ruled out. 2. Hypotension, improved. 3. UTI. Urine culture finalized with no growth. 4. Recent hospitalization for ESBL E. coli UTI with E. coli sepsis and septic shock. 5. 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 6. Diabetes mellitus type 2, insulin requiring. 7. Hypertension. 8. CAD status post CABG. 9. Status post aortic valve replacement. Stable. 10. Hyperlipidemia. 11. Chronic kidney disease stage II. 12. Anemia of chronic disease. Discharge plan: return to [facility] to complete course of subacute rehab. Impression and plan of care have been directed as dictated by the signing physician. Amrita Núñez nurse practitioner acting as scribe for signing physician. Patient Condition at Discharge: Good Plan - Discharge Summary New Discharge Prescriptions: New Midodrine [ProAmatine] 5 mg PO AC-TID #90 tab Torsemide [Demadex] 20 mg PO DAILY #30 tab Continue Glucosam/Donnie-Msm1/C/Pardeep/Bosw [Glucosamine-Chondroitin Tablet] 1 tab PO HS DULoxetine HCL [Cymbalta] 30 mg PO DAILY Multivitamins, Thera [Multivitamin (formulary)] 1 tab PO DAILY Docusate [Colace] 100 mg PO BID Allopurinol [Zyloprim] 300 mg PO Q48H Simvastatin [Zocor] 20 mg PO HS sitaGLIPtin PHOS/metFORMIN HCL [Janumet 50-500 mg Tablet] 1 tab PO HS Mirabegron [Myrbetriq] 50 mg PO DAILY Omeprazole 20 mg PO BID Turmeric Root Extract [Turmeric] 500 mg PO DAILY Calcium Carbonate/Vitamin D3 [Calcium 600-Vit D3 200 Tablet] 1 tab PO HS Ferrous Sulfate [Iron (65 MG Elemental)] 325 mg PO DAILY Acetaminophen Tab [Tylenol] 650 mg PO Q6H PRN tab PRN Reason: Fever Gabapentin [Neurontin] 300 mg PO HS #0 Insulin Aspart [NovoLOG (formulary)] See Protocol SQ ACHS Magnesium Hydroxide [Milk of Magnesia] 2,400 mg PO DAILY PRN PRN Reason: Constipation Famotidine [Pepcid] 20 mg PO BID Triad 1 applic TOPICAL BID Discontinued Torsemide [Demadex] 40 mg PO BID Nystatin 100,000 Unit/gm Oint [Mycostatin Oint] 1 applic TOPICAL BID Midodrine HCl [ProAmantine] 5 mg PO TID Na Phos,M-B/Na Phos,Di-Ba [Fleet Adult] 133 ml RECTAL DAILY PRN PRN Reason: Constipation Bisacodyl [Dulcolax] 10 mg RECTAL DAILY PRN PRN Reason: Constipation Fludrocortisone Acetate 0.1 mg PO BID Tamsulosin HCl [Flomax] 0.4 mg PO DAILY Discharge Medication List Allopurinol [Zyloprim] 300 mg PO Q48H 03/01/17 [History] DULoxetine HCL [Cymbalta] 30 mg PO DAILY 03/01/17 [History] Docusate [Colace] 100 mg PO BID 03/01/17 [History] Glucosam/Donnie-Msm1/C/Pardeep/Bosw [Glucosamine-Chondroitin Tablet] 1 tab PO HS 03/06 [History] Multivitamins, Thera [Multivitamin (formulary)] 1 tab PO DAILY 03/01/17 [History ] Simvastatin [Zocor] 20 mg PO HS 03/01/17 [History] Mirabegron [Myrbetriq] 50 mg PO DAILY 06/27/17 [History] Omeprazole 20 mg PO BID 06/27/17 [History] sitaGLIPtin PHOS/metFORMIN HCL [Janumet 50-500 mg Tablet] 1 tab PO HS 06/27/17 [ History] Calcium Carbonate/Vitamin D3 [Calcium 600-Vit D3 200 Tablet] 1 tab PO HS [History] Turmeric Root Extract [Turmeric] 500 mg PO DAILY 10/11/17 [History] Ferrous Sulfate [Iron (65 MG Elemental)] 325 mg PO DAILY 02/25/18 [History] Acetaminophen Tab [Tylenol] 650 mg PO Q6H PRN tab 03/06/18 [Rx] Gabapentin [Neurontin] 300 mg PO HS #0 03/06/18 [Rx] Famotidine [Pepcid] 20 mg PO BID 03/24/18 [History] Insulin Aspart [NovoLOG (formulary)] See Protocol SQ ACHS 03/24/18 [History] Magnesium Hydroxide [Milk of Magnesia] 2,400 mg PO DAILY PRN 03/24/18 [History] Triad 1 applic TOPICAL BID 03/24/18 [History] Midodrine [ProAmatine] 5 mg PO AC-TID #90 tab 03/27/18 [Rx] Torsemide [Demadex] 20 mg PO DAILY #30 tab 03/27/18 [Rx] Follow up Appointment(s)/Referral(s): Logan Corrigan MD [STAFF PHYSICIAN] - 1 Week Alfredo Self MD [Primary Care Provider] - 1-2 days Nicholas Jung [NON-STAFF] - As Needed Activity/Diet/Wound Care/Special Instructions: Nicholas
[2018-03-27] MEDS ORDERED: TORSEMIDE 20 MG TAB PO SCH (09:45)
[2018-03-27 11:11] LABS: Glucose,Whole Blood 95 mg/dL (75-99)
[2018-03-27] MEDS: MULTIVITAMINS, THERA 1 EACH TAB PO SCH (11:16)
[2018-03-27 11:28] VITALS: RESP 16
--- NOTE | 2018-03-27 11:46 | P.PN ---
Subjective Progress Note Date: 03/27/18 This is an 82-year-old male patient of Dr. Self with past medical history significant for prostate cancer status post radiation therapy, coronary artery disease status post 3 vessel CABG and aortic valve replacement, diabetes mellitus type 2 insulin requiring, hypertension, hyperlipidemia. Patient had a recent hospitalization February 25 through March 06 which time he was treated for ESBL E. coli UTI with E. coli sepsis and septic shock, acute hypoxic respiratory failure requiring BiPAP secondary to sepsis, pulmonary edema with possible acute systolic heart failure and possible pneumonia, acute kidney injury. Patient was followed during the hospitalization by Dr. Felix and Dr. Block. Patient was discharged on 1 week of IV Invanz to [facility] where he has been residing since. Patient states at least a week ago his blood pressure has been on the low side and he has not been able to stand or participate with physical therapy. He did see Dr. Perkins's nurse practitioner and medication changes were made however patient continued to have low blood pressure. Yesterday, he had an appointment scheduled with Dr. Corrigan however once the ambulance brought him to Dr. Corrigan's office, it was found that Dr. Corrigan was called away for heart catheterization and was unable to see the patient. Patient was then brought to [facility] emergency center for evaluation. Patient was found to be afebrile, pulse ox 96%, heart rate running in the 80s and 90s, blood pressure 102/75. White count 6.4, hemoglobin 11.5. Sodium 138, potassium 3.3, BUN 17, creatinine 1.38, blood sugar 127. Urinalysis was cloudy, leukoesterase large, WBC greater than 182 and Elena BC clumps many. EKG was a sinus rhythm with nonspecific ST changes. Troponin 0.049, 0.052 and 0.051. Patient was seen and examined this morning, blood pressure this morning 122/70, 108/60. 97% on room air. Lab data from this morning, white blood cell count 4.1, hemoglobin 11.1, platelet count 144. Sodium 141, potassium 3.6, BUN 13, creatinine 1.2. Magnesium 1.9. At the time of my examination this morning, patient is feeling much better overall. He denies having any chest discomfort. His abnormality in troponin could be secondary to the hypotension. 03/26/2018 Patient seen and examined today overall feeling significantly better. Up ambulating without any difficulty. No lightheadedness or dizziness today. Blood pressure 140/70, 97% on room air. Lab work remaining stable. IV fluids have been discontinued. We will consider the addition of a small diuretic from tomorrow. We will also have the nurse check orthostatics again today. 03/27/2018 Patient was seen and examined this morning, blood pressure running between 102/ 60 and 140/68. Remaining afebrile, heart rate in the 70s. Arrangements are being made for the patient to be transferred back to [facility] today. Objective - Vital Signs Vital signs: Vital Signs Temp 97.8 F 03/27/18 11:25 Pulse 97 03/27/18 11:25 Resp 16 03/27/18 11:25 BP 125/78 03/27/18 11:25 Pulse Ox 97 03/27/18 11:25 Intake & Output 03/26/18 03/27/18 03/27/18 18:59 06:59 18:59 Intake Total 180 600 240 Output Total 525 Balance 180 75 240 Weight 107 kg Intake: IV 600 Sodium Chloride 0.9% 1, 600 000 ml @ 75 mls/hr IV . [id number] [facility] Rx#:[id number] Oral 180 240 Output: Urine 525 Other: Voiding Method Diaper Incontinent Incontinent Incontinent # Voids 1 # Bowel Movements 1 - Exam PHYSICAL EXAMINATION: GENERAL: 82-year-old gentleman in no acute distress at the time of my examination HEENT: Head is atraumatic, normocephalic. Pupils equal, round. Sclera anicteric. Conjunctiva are clear. Mucous membranes of the mouth are moist. Neck is supple. There is no elevated jugular venous pressure. No carotid bruit is heard. HEART EXAMINATION: Heart S1 and S2 with soft systolic murmur is heard. CHEST EXAMINATION: Lungs are clear to auscultation and precussion. No chest wall tenderness is noted on palpation or with deep breathing. ABDOMEN: Soft, nontender. Bowel sounds are heard. No organomegaly noted. EXTREMITIES: 2+ peripheral pulses with trace evidence of peripheral edema and no calf tenderness noted. NEUROLOGIC patient is awake, alert and oriented 3 . - Labs CBC & Chem 7: 03/26/18 06:05 03/26/18 06:05 Labs: Abnormal Lab Results - Last 24 Hours (Table) 03/26/18 03/27/18 Range/Units 12:07 05:57 POC Glucose (mg/dL) 107 H 102 H (75-99) mg/dL Microbiology - Last 24 Hours (Table) 03/25/18 13:23 Blood Culture - Preliminary Blood No Growth after 24 hours 03/25/18 12:30 Urine Culture - Final Urine,Catheterized Assessment and Plan Plan: Assessment and plan #1 hypotension, improved #2. UTI. 3. Recent hospitalization for ESBL E. coli UTI with E. coli sepsis and septic shock. Patient is continued to have hypotensive blood pressure readings since discharge. Patient has been started on med a drain which will be continued. Patient noted to also be on Florinef at the assisted. 4. 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 3. Diabetes mellitus type 2, insulin requiring. Hemoglobin A1c is 6.4. 4. Hypertension. 5. CAD status post CABG. 6. Status post aortic valve replacement. 7. Hyperlipidemia. 8. Chronic kidney disease stage II. 9. Anemia of chronic disease. 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 Plan From cardiology's perspective, we'll resume a small dose of Demadex today. Patient may be transferred back to [facility]. We will make a follow-up appointment in the office post discharge. DNP note has been reviewed, I agree with a documented findings and plan of care. Patient was seen and examined.
[2018-03-27 12:19] LABS: Potassium 3.7 mmol/L (3.5-5.1)
[2018-03-27 16:02] LABS: Glucose,Whole Blood 101 mg/dL (75-99)
[2018-03-27 16:06] VITALS: BP 158/76; PULSE 79; TEMP 98
--- NOTE | 2018-03-27 17:35 | PN ---
PROGRESS NOTE DATE OF SERVICE: 03/27/2018 REASON FOR FOLLOWUP: Urinary tract infection. INTERVAL HISTORY: The patient is currently afebrile. He is breathing comfortably. Denies having any chest pain or shortness of breath or cough. No abdominal pain or diarrhea. PHYSICAL EXAMINATION: Blood pressure 158/76 with pulse of 79, temperature 98. He is 95% on room air. General description is an elderly male lying in bed in no distress. RESPIRATORY SYSTEM: Unlabored breathing. Clear to auscultation anteriorly. HEART: S1, S2. Regular rate and rhythm. ABDOMEN: Soft. No tenderness. LABS: BUN of 9, creatinine 1.34. Blood and urine cultures currently negative. DIAGNOSTIC IMPRESSION AND PLAN: Patient admitted to hospital with hypotension multifocal, possibly prerenal, and dehydration. Clinically doubt sepsis he did have a positive UA; however, the culture has been negative. PLAN: To discontinue his antibiotic on discharge. Continue with supportive care. MMODL / IJN: [id number] /
[2018-03-28] MEDS ORDERED: FAMOTIDINE 20 MG TAB PO SCH (09:00)
== END 2018-03-27 22:54 | disposition home or self-care (01) ==
LOC: EC 14:03 → 3SCARD 16:38
PROVIDERS: ADMIT Internal Medicine; ATTEND Internal Medicine
DX: R77.8 Other specified abnormalities of plasma proteins (principal); E86.0 Dehydration; I95.1 Orthostatic hypotension; I12.9 Hypertensive chronic kidney disease with stage 1 through stage 4 chronic kidney disease, or unspecified chronic kidney disease; E78.5 Hyperlipidemia, unspecified; E11.22 Type 2 diabetes mellitus with diabetic chronic kidney disease; N39.0 Urinary tract infection, site not specified; N18.2 Chronic kidney disease, stage 2 (mild); D63.8 Anemia in other chronic diseases classified elsewhere; N28.9 Disorder of kidney and ureter, unspecified; E11.40 Type 2 diabetes mellitus with diabetic neuropathy, unspecified; M19.90 Unspecified osteoarthritis, unspecified site; N42.9 Disorder of prostate, unspecified; R32 Unspecified urinary incontinence; E27.40 Unspecified adrenocortical insufficiency; R00.8 Other abnormalities of heart beat; Z92.3 Personal history of irradiation; Z85.46 Personal history of malignant neoplasm of prostate; Z92.21 Personal history of antineoplastic chemotherapy; Z95.1 Presence of aortocoronary bypass graft; I25.10 Atherosclerotic heart disease of native coronary artery without angina pectoris; Z95.2 Presence of prosthetic heart valve; Z99.89 Dependence on other enabling machines and devices; G47.30 Sleep apnea, unspecified; Z16.24 Resistance to multiple antibiotics; Z87.891 Personal history of nicotine dependence; Z79.899 Other long term (current) drug therapy; Z79.84 Long term (current) use of oral hypoglycemic drugs; Z79.4 Long term (current) use of insulin; E66.9 Obesity, unspecified; Z68.33 Body mass index [BMI] 33.0-33.9, adult
CPT/HCPCS: 96361 ×3; 96366 ×5; 96367; 96376; 96365; 99291; 36415; 93005; 97162; 97166; 80061; 80053; 80048 ×3; 82550 ×2; 82553 ×2; 83735 ×2; 84484 ×2; 85025 ×2; 85027; 85730 ×2; 81001; 87040; 87086; 71046; G0378 ×4; J2543; J1644 ×2; J1335 ×3; J3475

== ENCOUNTER 2018-04-17 19:00 | Emergency (ER) | payer MEDICARE ==
[2018-04-17] MEDS ORDERED: ACETAMINOPHEN TAB 500 MG TAB PO STA (19:48)
[2018-04-17 20:31] LABS: Anisocytosis Slight; Basophils % (A) 0 %; Eosinophils # (A) 0.1 k/uL (0-0.7); Eosinophils % (A) 2 %; HCT 30.3 % (39.0-53.0); HGB 10.4 gm/dL (13.0-17.5); Lymphocytes # (A) 0.7 k/uL (1.0-4.8); Lymphocytes % (A) 9 %; MCHC 34.5 g/dL (31.0-37.0); MCV 92.7 fL (80.0-100.0); Mean Platelet Volume 7.6; Monocytes # (A) 0.6 k/uL (0-1.0); Monocytes % (A) 7 %; Neutrophils % (A) 81 %; Platelet Count 196 k/uL (150-450); RBC 3.27 m/uL (4.30-5.90); RDW 17.1 % (11.5-15.5); WBC 8.6 k/uL (3.8-10.6)
--- NOTE | 2018-04-17 20:35 | ED ---
Fever HPI - General Source: patient Mode of arrival: EMS Limitations: no limitations <Ashley Pinedo - Last Filed: 04/18/18 01:06> <Rosa Gardner - Last Filed: 04/18/18 03:25> - General Chief Complaint: Fever Stated Complaint: Fever Time Seen by Provider: 04/17/18 19:09 - History of Present Illness Initial Comments: 82-year-old male patient presents to the emergency department today for evaluation of urinary frequency and fever. Patient states he started having increased urinary frequency yesterday. States that this evening he developed fever. He has been having general malaise throughout the day and decreased appetite. Patient was admitted in February for urinary tract infection with sepsis and treated again at the end of February for urinary tract infection. Patient denies any hematuria or dysuria. Denies any abdominal or back pain. Patient states that he is treated by Dr. Buckley for radiologic cystitis, but usually his main symptom with this is hematuria which he has not had. He denies any nausea or vomiting. Denies any constipation or diarrhea. Patient denies any recent rash, shortness breath, chest pain, numbness, tingling, dizziness, weakness, headache, visual changes, or any other complaints. (Ashley Pinedo) - Related Data Home Medications Medication Instructions Recorded Confirmed Allopurinol [Zyloprim] 300 mg PO Q48H 03/01/17 04/17/18 DULoxetine HCL [Cymbalta] 30 mg PO DAILY 03/01/17 04/17/18 Docusate [Colace] 100 mg PO BID 03/01/17 04/17/18 Glucosam/Donnie-Msm1/C/Pardeep/Bosw 1 tab PO HS 03/01/17 04/17/18 [Glucosamine-Chondroitin Tablet] Multivitamins, Thera [Multivitamin 1 tab PO DAILY@1700 03/01/17 04/17/18 (formulary)] Simvastatin [Zocor] 20 mg PO HS 03/01/17 04/17/18 Mirabegron [Myrbetriq] 50 mg PO DAILY 06/27/17 04/17/18 Omeprazole 20 mg PO BID 06/27/17 04/17/18 sitaGLIPtin PHOS/metFORMIN HCL 1 tab PO HS 06/27/17 04/17/18 [Janumet 50-500 mg Tablet] Calcium Carbonate/Vitamin D3 1 tab PO DAILY 10/11/17 04/17/18 [Calcium 600-Vit D3 200 Tablet] Turmeric Root Extract [Turmeric] 500 mg PO DAILY@1700 10/11/17 04/17/18 Ferrous Sulfate [Iron (65 MG 325 mg PO DAILY@1700 02/25/18 04/17/18 Elemental)] Famotidine [Pepcid] 20 mg PO DIRECTED 03/24/18 04/17/18 Midodrine [ProAmatine] 5 mg PO TID@0800,1200,1700 04/17/18 04/17/18 Previous Rx's Medication Instructions Recorded Gabapentin [Neurontin] 300 mg PO HS #0 03/06/18 Torsemide [Demadex] 20 mg PO DAILY #30 tab 03/27/18 Cephalexin [Keflex] 500 mg PO Q6H #40 cap 04/17/18 Allergies Allergy/AdvReac Type Severity Reaction Status Date / Time No Known Allergies Allergy Verified 04/17/18 19:49 Review of Systems ROS Other: All systems not noted in ROS Statement are negative. <Ashley Pinedo - Last Filed: 04/18/18 01:06> ROS Other: All systems not noted in ROS Statement are negative. <Rosa Gardner - Last Filed: 04/18/18 03:25> ROS Statement: Those systems with pertinent positive or pertinent negative responses have been documented in the HPI. 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 Anemia with blood transfusions.02/25/2018 WAS IN [facility] FOR SEPSIS UTI ECOLI INFECTION. HAS A MEDLINE PORT LEFT UPPER ARM FROM [facility] 03/22/2018 History of Any Multi-Drug Resistant Organisms: ESBL Date of last positivie culture/infection: 02/25/18 MDRO Source:: urine, blood esbl Past Surgical History: Cardiac Valve Replacement, Heart Catheterization Additional Past Surgical History / Comment(s): 03/02/17 cystoscopy/evacuation clots and fulguration bladder, 01/20/12 CABG-3 vessel with aortic valve. Past Anesthesia/Blood Transfusion Reactions: No Reported Reaction Past Psychological History: No Psychological Hx Reported Smoking Status: Former smoker Past Alcohol Use History: Occasional Past Drug Use History: None Reported - Past Family History Mother Family Medical History: Myocardial Infarction (SD) Additional Family Medical History / Comment(s): Mother at age 67 from a myocardial infarction. Father Family Medical History: Diabetes Mellitus, Myocardial Infarction (SD) Additional Family Medical History / Comment(s): Father from complications from diabetes mellitus that was uncontrolled with frequent episodes of coma. He also has history of myocardial infarction. The patient has no children and no siblings. <Ashley Pinedo M - Last Filed: 04/18/18 01:06> General Exam Limitations: no limitations General appearance: alert, in no apparent distress, other (This is a well- developed, well-nourished elderly male patient in no acute distress. Vital signs upon presentation are temperature 101.7F, pulse 68, respirations 18, blood pressure 136/59, pulse ox 97% on room air.) Eye exam: Present: normal appearance, PERRL, EOMI. Absent: scleral icterus, conjunctival injection, periorbital swelling ENT exam: Present: normal exam, normal oropharynx, mucous membranes moist Respiratory exam: Present: normal lung sounds bilaterally. Absent: respiratory distress, wheezes, rales, rhonchi, stridor Cardiovascular Exam: Present: regular rate, normal rhythm, normal heart sounds. Absent: systolic murmur, diastolic murmur, rubs, gallop, clicks GI/Abdominal exam: Present: soft, tenderness (Left upper quadrant tenderness), normal bowel sounds. Absent: distended, guarding, rebound, rigid Neurological exam: Present: alert, oriented X3, CN II-XII intact Psychiatric exam: Present: normal affect, normal mood Skin exam: Present: warm, dry, intact, normal color. Absent: rash <Ashley Pinedo M - Last Filed: 04/18/18 01:06> Vital Signs 04/17/18 04/17/18 19:03 21:51 Temperature 101.7 F H 99.2 F Pulse Rate 68 70 Respiratory 18 16 Rate Blood Pressure 136/59 112/64 O2 Sat by Pulse 97 98 Oximetry Medical Decision Making - Lab Data Result diagrams: 04/17/18 20:06 04/17/18 20:06 - EKG Data -: EKG Interpreted by Pa <Ashley Pinedo - Last Filed: 04/18/18 01:06> - Lab Data Result diagrams: 04/17/18 20:06 04/17/18 20:06 <Rosa Gardner - Last Filed: 04/18/18 03:25> - Medical Decision Making 82-year-old male patient presents to the emergency department today for evaluation of frequency in urination and fever. Physical examination was relatively unremarkable. Abdomen soft and nontender. No CVA tenderness. Labs reviewed and are unremarkable. Urinalysis did show greater than 182 white blood cells and large leukocyte esterase. Patient denies any flulike or upper respiratory symptoms. Able to tolerate oral intake without difficulty. We will treat patient with one dose of IV Rocephin in the department. We'll start Keflex outpatient. Urine was sent for culture. He does have an appointment with Dr. Barrow in the office in the morning, he is urged to keep this appointment. Return parameters were discussed in detail. Both patient and verbalized understanding and agree with this plan. (Ashley Pinedo) I was available for consultation in the emergency department. The history and physical exam were done by the midlevel provider. I was consulted for this patient's care. I reviewed the case with the midlevel provider and based on their presentation of the patient, I agree with the assessment, medical decision making and plan of care as documented. (Rosa Gardner) - Lab Data Lab Results 04/17/18 04/17/18 04/17/18 Range/Units 20:06 20:06 20:06 WBC 8.6 (3.8-10.6) k/uL RBC 3.27 L (4.30-5.90) m/uL Hgb 10.4 L (13.0-17.5) gm/dL Hct 30.3 L (39.0-53.0) % MCV 92.7 (80.0-100.0) fL MCH 32.0 (25.0-35.0) pg MCHC 34.5 (31.0-37.0) g/dL RDW 17.1 H (11.5-15.5) % Plt Count 196 (150-450) k/uL Neutrophils % 81 % Lymphocytes % 9 % Monocytes % 7 % Eosinophils % 2 % Basophils % 0 % Neutrophils # 7.0 (1.3-7.7) k/uL Lymphocytes # 0.7 L (1.0-4.8) k/uL Monocytes # 0.6 (0-1.0) k/uL Eosinophils # 0.1 (0-0.7) k/uL Basophils # 0.0 (0-0.2) k/uL Anisocytosis Slight PT (9.0-12.0) sec INR (<1.2) APTT (22.0-30.0) sec Sodium 136 L (137-145) mmol/L Potassium 4.5 (3.5-5.1) mmol/L Chloride 102 (98-107) mmol/L Carbon Dioxide 29 (22-30) mmol/L Anion Gap 5 mmol/L BUN 17 (9-20) mg/dL Creatinine 1.19 (0.66-1.25) mg/dL Est GFR (CKD-EPI)AfAm 66 (>60 ml/min/1.73 sqM) Est GFR (CKD-EPI)NonAf 57 (>60 ml/min/1.73 sqM) Glucose 106 H (74-99) mg/dL Plasma Lactic Acid Judd 1.2 (0.7-2.0) mmol/L Calcium 8.8 (8.4-10.2) mg/dL Total Bilirubin 0.6 (0.2-1.3) mg/dL AST 39 (17-59) U/L ALT 38 (21-72) U/L Alkaline Phosphatase 80 (38-126) U/L Total Protein 6.2 L (6.3-8.2) g/dL Albumin 3.2 L (3.5-5.0) g/dL Urine Color Urine Appearance (Clear) Urine pH (5.0-8.0) Ur Specific [place] (1.001-1.035) Urine Protein (Negative) Urine Glucose (UA) (Negative) Urine Ketones (Negative) Urine Blood (Negative) Urine Nitrite (Negative) Urine Bilirubin (Negative) Urine Urobilinogen (<2.0) mg/dL Ur Leukocyte Esterase (Negative) Urine RBC (0-5) /hpf Urine WBC (0-5) /hpf 04/17/18 04/17/18 Range/Units 20:06 20:28 WBC (3.8-10.6) k/uL RBC (4.30-5.90) m/uL Hgb (13.0-17.5) gm/dL Hct (39.0-53.0) % MCV (80.0-100.0) fL MCH (25.0-35.0) pg MCHC (31.0-37.0) g/dL RDW (11.5-15.5) % Plt Count (150-450) k/uL Neutrophils % % Lymphocytes % % Monocytes % % Eosinophils % % Basophils % % Neutrophils # (1.3-7.7) k/uL Lymphocytes # (1.0-4.8) k/uL Monocytes # (0-1.0) k/uL Eosinophils # (0-0.7) k/uL Basophils # (0-0.2) k/uL Anisocytosis PT 9.6 (9.0-12.0) sec INR 0.9 (<1.2) APTT 25.9 (22.0-30.0) sec Sodium (137-145) mmol/L Potassium (3.5-5.1) mmol/L Chloride (98-107) mmol/L Carbon Dioxide (22-30) mmol/L Anion Gap mmol/L BUN (9-20) mg/dL Creatinine (0.66-1.25) mg/dL Est GFR (CKD-EPI)AfAm (>60 ml/min/1.73 sqM) Est GFR (CKD-EPI)NonAf (>60 ml/min/1.73 sqM) Glucose (74-99) mg/dL Plasma Lactic Acid Judd (0.7-2.0) mmol/L Calcium (8.4-10.2) mg/dL Total Bilirubin (0.2-1.3) mg/dL AST (17-59) U/L ALT (21-72) U/L Alkaline Phosphatase (38-126) U/L Total Protein (6.3-8.2) g/dL Albumin (3.5-5.0) g/dL Urine Color Yellow Urine Appearance Cloudy (Clear) Urine pH 8.0 (5.0-8.0) Ur Specific [place] 1.010 (1.001-1.035) Urine Protein 1+ H (Negative) Urine Glucose (UA) Negative (Negative) Urine Ketones Negative (Negative) Urine Blood Trace H (Negative) Urine Nitrite Negative (Negative) Urine Bilirubin Negative (Negative) Urine Urobilinogen <2.0 (<2.0) mg/dL Ur Leukocyte Esterase Large H (Negative) Urine RBC 3 (0-5) /hpf Urine WBC >182 H (0-5) /hpf - EKG Data EKG Comments: EKG obtained at 2006 shows normal sinus rhythm with a left axis deviation. Ventricular rate is 72, NC interval 192, QRS duration 100, QT 432, QTc 473. No evidence of ST elevation or depression. (Ashley Pinedo) Disposition Is patient prescribed a controlled substance at d/c from ED?: No <Ashley Pinedo - Last Filed: 04/18/18 01:06> <Rosa Gardner - Last Filed: 04/18/18 03:25> Clinical Impression: Urinary tract infection Disposition: HOME SELF-CARE Condition: Good Instructions (If sedation given, give patient instructions): Urinary Tract Infection in Men (ED), Fever in Adults (ED) Additional Instructions: Complete antibiotic prescription in full. Follow up with urology for recheck as planned. Return to the emergency department for any new, worsening, or concerning symptoms. Prescriptions: Cephalexin [Keflex] 500 mg PO Q6H #40 cap Referrals: Alfredo Self MD [Primary Care Provider] - 1-2 days
[2018-04-17 20:37] LABS: INR 0.9 (<1.2); Partial Thromboplastin Time 25.9 sec (22.0-30.0); Prothrombin Time 9.6 sec (9.0-12.0)
[2018-04-17 20:42] LABS: Albumin 3.2 g/dL (3.5-5.0); Calcium 8.8 mg/dL (8.4-10.2); Potassium 4.5 mmol/L (3.5-5.1); Total Bilirubin 0.6 mg/dL (0.2-1.3); Total Protein 6.2 g/dL (6.3-8.2)
[2018-04-17 20:46] LABS: Appearance,Urine Cloudy (Clear); Bilirubin,Urine Negative (Negative); Blood,Urine Trace (Negative); Color,Urine Yellow; Glucose,Urine (UA) Negative (Negative); Ketones,Urine Negative (Negative); Leukocyte Esterase,Urine Large (Negative); Nitrite,Urine Negative (Negative); Protein,Urine 1+ (Negative); RBC,Urine 3 /hpf (0-5); Urobilinogen,Urine <2.0 mg/dL (<2.0); WBC,Urine >182 /hpf (0-5)
[2018-04-17 21:52] VITALS: BP 112/64; PULSE 70; RESP 16; TEMP 99.2
== END 2018-04-17 22:02 | disposition home or self-care (01) ==
LOC: EC 19:00
DX: N39.0 Urinary tract infection, site not specified (principal); I25.10 Atherosclerotic heart disease of native coronary artery without angina pectoris; E11.9 Type 2 diabetes mellitus without complications; E78.5 Hyperlipidemia, unspecified; I10 Essential (primary) hypertension; M19.90 Unspecified osteoarthritis, unspecified site; G47.30 Sleep apnea, unspecified; Z99.89 Dependence on other enabling machines and devices; D64.9 Anemia, unspecified; Z87.891 Personal history of nicotine dependence; Z79.899 Other long term (current) drug therapy; Z79.84 Long term (current) use of oral hypoglycemic drugs; Z95.2 Presence of prosthetic heart valve; Z95.818 Presence of other cardiac implants and grafts; Z95.1 Presence of aortocoronary bypass graft
CPT/HCPCS: 36415; 93005; 80053; 83605; 85025; 85610; 85730; 81001; 87040; 87086; 99284; 96365; J0696

== ENCOUNTER → 2018-05-02 | Outpatient (CLI) | payer MEDICARE | END | disposition home or self-care (01) | LOC: LABWHC1 12:59 | PROVIDERS: ATTEND Urology | DX: C61 Malignant neoplasm of prostate (principal) | CPT/HCPCS: 36415; 84153 ==

== ENCOUNTER 2018-05-14 06:48 | Inpatient (IN) | payer MEDICARE ==
[2018-05-14 07:13] LABS: Glucose,Whole Blood 170 mg/dL (75-99)
[2018-05-14] MEDS ORDERED: IBUPROFEN 600 MG TAB PO STA (07:19)
--- NOTE | 2018-05-14 07:25 | ED ---
General Adult HPI - General Chief complaint: Fever Stated complaint: Fever Time Seen by Provider: 05/14/18 07:00 Source: patient, family, RN notes reviewed Mode of arrival: EMS Limitations: no limitations - History of Present Illness Initial comments: This is an 82-year-old male who presents emergency Department complaining that he has a fever. Patient states he really has no symptoms but the last time he had a fever he was uroseptic so he wanted to catch it early so that he can go septic. Patient states he has been urinating quite a bit lately. Patient denies any headache patient denies numbness weakness. Patient denies lightheadedness dizziness or near syncopal episode. Patient denies any recent cough. Patient denies any chest pain difficulty breathing shortest breath per patient denies any abdominal pain patient denies nausea vomiting diarrhea. Patient states she has urinary frequency but denies any dysuria. Patient denies any back pain. Patient denies any areas of erythema or lesions on his body. Patient denies any recent injury or trauma - Related Data Home Medications Medication Instructions Recorded Confirmed Allopurinol [Zyloprim] 300 mg PO Q48H 03/01/17 05/14/18 DULoxetine HCL [Cymbalta] 30 mg PO DAILY 03/01/17 05/14/18 Docusate [Colace] 100 mg PO BID 03/01/17 05/14/18 Glucosam/Donnie-Msm1/C/Pardeep/Bosw 1 tab PO HS 03/01/17 05/14/18 [Glucosamine-Chondroitin Tablet] Multivitamins, Thera [Multivitamin 1 tab PO DAILY@1700 03/01/17 05/14/18 (formulary)] Simvastatin [Zocor] 20 mg PO HS 03/01/17 05/14/18 Mirabegron [Myrbetriq] 50 mg PO DAILY 06/27/17 05/14/18 sitaGLIPtin PHOS/metFORMIN HCL 1 tab PO HS 06/27/17 05/14/18 [Janumet 50-500 mg Tablet] Calcium Carbonate/Vitamin D3 1 tab PO DAILY 10/11/17 05/14/18 [Calcium 600-Vit D3 200 Tablet] Turmeric Root Extract [Turmeric] 500 mg PO DAILY@1700 10/11/17 05/14/18 Ferrous Sulfate [Iron (65 MG 325 mg PO DAILY@1700 02/25/18 05/14/18 Elemental)] Aspirin [[place] Aspirin EC] 81 mg PO DAILY 05/14/18 05/14/18 Famotidine [Pepcid] 20 mg PO BID 05/14/18 05/14/18 Midodrine [ProAmatine] 5 mg PO BID 05/14/18 05/14/18 Previous Rx's Medication Instructions Recorded Gabapentin [Neurontin] 300 mg PO HS #0 03/06/18 Torsemide [Demadex] 20 mg PO DAILY #30 tab 03/27/18 Allergies Allergy/AdvReac Type Severity Reaction Status Date / Time No Known Allergies Allergy Verified 05/14/18 09:50 Review of Systems ROS Statement: Those systems with pertinent positive or pertinent negative responses have been documented in the HPI. ROS Other: All systems not noted in ROS Statement are negative. 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 Anemia with blood transfusions.02/25/2018 WAS IN [facility] FOR SEPSIS UTI ECOLI INFECTION. HAS A MEDLINE PORT LEFT UPPER ARM FROM [facility] 03/22/2018 History of Any Multi-Drug Resistant Organisms: ESBL Date of last positivie culture/infection: 02/25/18 MDRO Source:: urine, blood esbl Past Surgical History: Cardiac Valve Replacement, Heart Catheterization Additional Past Surgical History / Comment(s): 03/02/17 cystoscopy/evacuation clots and fulguration bladder, 01/20/12 CABG-3 vessel with aortic valve. Past Anesthesia/Blood Transfusion Reactions: No Reported Reaction Past Psychological History: No Psychological Hx Reported Smoking Status: Former smoker Past Alcohol Use History: Occasional Past Drug Use History: None Reported - Past Family History Mother Family Medical History: Myocardial Infarction (MS) Additional Family Medical History / Comment(s): Mother at age 67 from a myocardial infarction. Father Family Medical History: Diabetes Mellitus, Myocardial Infarction (MS) Additional Family Medical History / Comment(s): Father from complications from diabetes mellitus that was uncontrolled with frequent episodes of coma. He also has history of myocardial infarction. The patient has no children and no siblings. General Exam - General Exam Comments Initial Comments: GENERAL: Patient is well-developed and well-nourished. Patient is nontoxic and well- hydrated and is in mild distress. ENT: Neck is soft and supple. No significant lymphadenopathy is noted. Oropharynx is clear. Moist mucous membranes. Neck has full range of motion without eliciting any pain. EYES: The sclera were anicteric and conjunctiva were pink and moist. Extraocular movements were intact and pupils were equal round and reactive to light. Eyelids were unremarkable. PULMONARY: Unlabored respirations. Good breath sounds bilaterally. No audible rales rhonchi or wheezing was noted. CARDIOVASCULAR: Patient is tachycardic at about 130 beats minute ABDOMEN: Soft and nontender with normal bowel sounds. SKIN: Skin is clear with no lesions or rashes and otherwise unremarkable. NEUROLOGIC: Patient is alert and oriented x3. Cranial nerves II through XII are grossly intact. Motor and sensory are also intact. Normal speech, volume and content. Symmetrical smile. MUSCULOSKELETAL: Normal extremities with adequate strength and full range of motion. LYMPHATICS: No significant lymphadenopathy is noted PSYCHIATRIC: Normal psychiatric evaluation. Limitations: no limitations Course Vital Signs 05/14/18 05/14/18 05/14/18 06:51 07:05 07:30 Temperature 101.1 F H 100.9 F H Pulse Rate 134 H 136 H 131 H Respiratory 18 20 19 Rate Blood Pressure 106/65 98/64 96/58 O2 Sat by Pulse 97 100 95 Oximetry 05/14/18 05/14/18 05/14/18 08:00 08:30 08:53 Temperature 98.7 F Pulse Rate 121 H 80 78 Respiratory 16 16 18 Rate Blood Pressure 100/57 99/64 103/59 O2 Sat by Pulse 97 97 97 Oximetry Medical Decision Making - Medical Decision Making Patient's EKG shows a supraventricular tachycardia at 135 bpm QRS is 94 QT interval 332 QTC is 498. Patient's EKG shows no ST segment elevation however there is slight ST segment depression in V4 V5 and V6. Patient's right heel body weight according to his height is 75 kg fluid will be replaced based on that weight EKG was repeated with a heart rate slowed the patient has a sinus rhythm with occasional PVC at 87 bpm ID interval is 208 QRSs 100 QT interval 42 QTC is 483. Patient's EKG shows no ST segment elevation or depression or T wave abnormalities are noted. Patient received 2 L of fluid but did not get the full 30 miles per KG because his pressure was stable and his lactic acid was not about 4. I spoke with Dr. Self he agreed to admit the patient admitted the patient I wrote admitting orders. I repeated troponins I consult cardiology and infectious disease. Patient also received 2 g of Rocephin emergency department and based on his old urine cultures that should be sufficient. - Lab Data Result diagrams: 05/14/18 07:06 05/14/18 07:06 Lab Results 05/14/18 05/14/18 05/14/18 Range/Units 07:06 07:06 07:06 WBC 15.0 H (3.8-10.6) k/uL RBC 3.59 L (4.30-5.90) m/uL Hgb 11.2 L (13.0-17.5) gm/dL Hct 34.8 L (39.0-53.0) % MCV 96.9 (80.0-100.0) fL MCH 31.3 (25.0-35.0) pg MCHC 32.3 (31.0-37.0) g/dL RDW 16.8 H (11.5-15.5) % Plt Count 185 (150-450) k/uL Neutrophils % 91 % Lymphocytes % 2 % Monocytes % 5 % Eosinophils % 1 % Basophils % 0 % Neutrophils # 13.7 H (1.3-7.7) k/uL Lymphocytes # 0.3 L (1.0-4.8) k/uL Monocytes # 0.7 (0-1.0) k/uL Eosinophils # 0.1 (0-0.7) k/uL Basophils # 0.0 (0-0.2) k/uL Anisocytosis Slight Macrocytosis Slight PT (9.0-12.0) sec INR (<1.2) APTT (22.0-30.0) sec Sodium 138 (137-145) mmol/L Potassium 4.7 (3.5-5.1) mmol/L Chloride 104 (98-107) mmol/L Carbon Dioxide 22 (22-30) mmol/L Anion Gap 12 mmol/L BUN 18 (9-20) mg/dL Creatinine 1.35 H (0.66-1.25) mg/dL Est GFR (CKD-EPI)AfAm 57 (>60 ml/min/1.73 sqM) Est GFR (CKD-EPI)NonAf 49 (>60 ml/min/1.73 sqM) Glucose 186 H (74-99) mg/dL POC Glucose (mg/dL) (75-99) mg/dL POC Glu Nougat Cutter Machine ID Plasma Lactic Acid Judd 3.2 H* (0.7-2.0) mmol/L Calcium 9.4 (8.4-10.2) mg/dL Total Bilirubin 1.0 (0.2-1.3) mg/dL AST 35 (17-59) U/L ALT 26 (21-72) U/L Alkaline Phosphatase 76 (38-126) U/L Troponin I (0.000-0.034) ng/mL Total Protein 7.0 (6.3-8.2) g/dL Albumin 3.8 (3.5-5.0) g/dL Urine Color Urine Appearance (Clear) Urine pH (5.0-8.0) Ur Specific [place] (1.001-1.035) Urine Protein (Negative) Urine Glucose (UA) (Negative) Urine Ketones (Negative) Urine Blood (Negative) Urine Nitrite (Negative) Urine Bilirubin (Negative) Urine Urobilinogen (<2.0) mg/dL Ur Leukocyte Esterase (Negative) Urine RBC (0-5) /hpf Urine WBC (0-5) /hpf Urine WBC Clumps (None) /hpf Ur Squamous Epith Cells (0-4) /hpf Urine Bacteria (None) /hpf Urine Mucus (None) /hpf Influenza Type A RNA (Not Detectd) Influenza Type B (PCR) (Not Detectd) 05/14/18 05/14/18 05/14/18 Range/Units 07:06 07:06 07:11 WBC (3.8-10.6) k/uL RBC (4.30-5.90) m/uL Hgb (13.0-17.5) gm/dL Hct (39.0-53.0) % MCV (80.0-100.0) fL MCH (25.0-35.0) pg MCHC (31.0-37.0) g/dL RDW (11.5-15.5) % Plt Count (150-450) k/uL Neutrophils % % Lymphocytes % % Monocytes % % Eosinophils % % Basophils % % Neutrophils # (1.3-7.7) k/uL Lymphocytes # (1.0-4.8) k/uL Monocytes # (0-1.0) k/uL Eosinophils # (0-0.7) k/uL Basophils # (0-0.2) k/uL Anisocytosis Macrocytosis PT 10.1 (9.0-12.0) sec INR 0.9 (<1.2) APTT 24.9 (22.0-30.0) sec Sodium (137-145) mmol/L Potassium (3.5-5.1) mmol/L Chloride (98-107) mmol/L Carbon Dioxide (22-30) mmol/L Anion Gap mmol/L BUN (9-20) mg/dL Creatinine (0.66-1.25) mg/dL Est GFR (CKD-EPI)AfAm (>60 ml/min/1.73 sqM) Est GFR (CKD-EPI)NonAf (>60 ml/min/1.73 sqM) Glucose (74-99) mg/dL POC Glucose (mg/dL) 170 H (75-99) mg/dL POC Glu Nougat Cutter Machine ID Apollo, Mini Plasma Lactic Acid Judd (0.7-2.0) mmol/L Calcium (8.4-10.2) mg/dL Total Bilirubin (0.2-1.3) mg/dL AST (17-59) U/L ALT (21-72) U/L Alkaline Phosphatase (38-126) U/L Troponin I 0.156 H* (0.000-0.034) ng/mL Total Protein (6.3-8.2) g/dL Albumin (3.5-5.0) g/dL Urine Color Urine Appearance (Clear) Urine pH (5.0-8.0) Ur Specific [place] (1.001-1.035) Urine Protein (Negative) Urine Glucose (UA) (Negative) Urine Ketones (Negative) Urine Blood (Negative) Urine Nitrite (Negative) Urine Bilirubin (Negative) Urine Urobilinogen (<2.0) mg/dL Ur Leukocyte Esterase (Negative) Urine RBC (0-5) /hpf Urine WBC (0-5) /hpf Urine WBC Clumps (None) /hpf Ur Squamous Epith Cells (0-4) /hpf Urine Bacteria (None) /hpf Urine Mucus (None) /hpf Influenza Type A RNA (Not Detectd) Influenza Type B (PCR) (Not Detectd) 05/14/18 05/14/18 Range/Units 07:11 09:30 WBC (3.8-10.6) k/uL RBC (4.30-5.90) m/uL Hgb (13.0-17.5) gm/dL Hct (39.0-53.0) % MCV (80.0-100.0) fL MCH (25.0-35.0) pg MCHC (31.0-37.0) g/dL RDW (11.5-15.5) % Plt Count (150-450) k/uL Neutrophils % % Lymphocytes % % Monocytes % % Eosinophils % % Basophils % % Neutrophils # (1.3-7.7) k/uL Lymphocytes # (1.0-4.8) k/uL Monocytes # (0-1.0) k/uL Eosinophils # (0-0.7) k/uL Basophils # (0-0.2) k/uL Anisocytosis Macrocytosis PT (9.0-12.0) sec INR (<1.2) APTT (22.0-30.0) sec Sodium (137-145) mmol/L Potassium (3.5-5.1) mmol/L Chloride (98-107) mmol/L Carbon Dioxide (22-30) mmol/L Anion Gap mmol/L BUN (9-20) mg/dL Creatinine (0.66-1.25) mg/dL Est GFR (CKD-EPI)AfAm (>60 ml/min/1.73 sqM) Est GFR (CKD-EPI)NonAf (>60 ml/min/1.73 sqM) Glucose (74-99) mg/dL POC Glucose (mg/dL) (75-99) mg/dL POC Glu Nougat Cutter Machine ID Plasma Lactic Acid Judd (0.7-2.0) mmol/L Calcium (8.4-10.2) mg/dL Total Bilirubin (0.2-1.3) mg/dL AST (17-59) U/L ALT (21-72) U/L Alkaline Phosphatase (38-126) U/L Troponin I (0.000-0.034) ng/mL Total Protein (6.3-8.2) g/dL Albumin (3.5-5.0) g/dL Urine Color Yellow Urine Appearance Turbid (Clear) Urine pH 7.0 (5.0-8.0) Ur Specific [place] 1.013 (1.001-1.035) Urine Protein 2+ H (Negative) Urine Glucose (UA) Negative (Negative) Urine Ketones Negative (Negative) Urine Blood Small H (Negative) Urine Nitrite Positive (Negative) Urine Bilirubin Negative (Negative) Urine Urobilinogen <2.0 (<2.0) mg/dL Ur Leukocyte Esterase Large H (Negative) Urine RBC 6 H (0-5) /hpf Urine WBC >182 H (0-5) /hpf Urine WBC Clumps Many H (None) /hpf Ur Squamous Epith Cells 1 (0-4) /hpf Urine Bacteria Occasional H (None) /hpf Urine Mucus Rare H (None) /hpf Influenza Type A RNA Not Detected (Not Detectd) Influenza Type B (PCR) Not Detected (Not Detectd) Critical Care Time Critical Care Time: Yes Total Critical Care Time: 35 Disposition Clinical Impression: Urinary tract infection, Sepsis Disposition: ADMITTED IP TO THIS [facility] Referrals: Alfredo Self MD [Primary Care Provider] - 1-2 days Time of Disposition: 09:59
[2018-05-14] MEDS: SODIUM CHLORIDE 0.9% 500 ML 500 ML IV SCH ×2 (07:30→07:33)
[2018-05-14 07:36] LABS: Anisocytosis Slight; Basophils % (A) 0 %; Eosinophils # (A) 0.1 k/uL (0-0.7); Eosinophils % (A) 1 %; HCT 34.8 % (39.0-53.0); HGB 11.2 gm/dL (13.0-17.5); Lymphocytes # (A) 0.3 k/uL (1.0-4.8); Lymphocytes % (A) 2 %; MCH 31.3 pg (25.0-35.0); MCHC 32.3 g/dL (31.0-37.0); MCV 96.9 fL (80.0-100.0); Macrocytosis Slight; Mean Platelet Volume 7.8; Monocytes # (A) 0.7 k/uL (0-1.0); Monocytes % (A) 5 %; Neutrophils # (A) 13.7 k/uL (1.3-7.7); Neutrophils % (A) 91 %; Platelet Count 185 k/uL (150-450); RBC 3.59 m/uL (4.30-5.90); RDW 16.8 % (11.5-15.5)
[2018-05-14 07:45] LABS: INR 0.9 (<1.2); Partial Thromboplastin Time 24.9 sec (22.0-30.0); Prothrombin Time 10.1 sec (9.0-12.0)
[2018-05-14 07:49] LABS: Albumin 3.8 g/dL (3.5-5.0); Calcium 9.4 mg/dL (8.4-10.2); Potassium 4.7 mmol/L (3.5-5.1)
--- NOTE | 2018-05-14 07:56 | XR ---
EXAMINATION TYPE: XR chest 2V DATE OF EXAM: 05/14/2018 COMPARISON: 03/24/2018 INDICATION: Fever weakness TECHNIQUE: Frontal and lateral views of the chest are obtained. FINDINGS: The heart size is normal. The pulmonary vasculature is normal. The lungs are clear. IMPRESSION: 1. No acute pulmonary process.
[2018-05-14] MEDS ORDERED: SODIUM CHLORIDE 0.9% 500 ML 500 ML IV ONE (07:57)
[2018-05-14 09:49] LABS: Appearance,Urine Turbid (Clear); Bacteria,Urine Occasional /hpf; Bilirubin,Urine Negative (Negative); Blood,Urine Small (Negative); Color,Urine Yellow; Glucose,Urine (UA) Negative (Negative); Ketones,Urine Negative (Negative); Leukocyte Esterase,Urine Large (Negative); Mucus,Urine Rare /hpf; Nitrite,Urine Positive (Negative); Protein,Urine 2+ (Negative); RBC,Urine 6 /hpf (0-5); Specific Gravity,Urine 1.013 (1.001-1.035); Squamous Epithelial Cell,Urine 1 /hpf (0-4); Urobilinogen,Urine <2.0 mg/dL (<2.0); WBC,Urine >182 /hpf (0-5)
[2018-05-14 11:23] LABS: Glucose,Whole Blood 113 mg/dL (75-99)
[2018-05-14 11:28] VITALS: BMI 37.0
[2018-05-14] MEDS ORDERED: ACETAMINOPHEN IV (For NPO) 1,000 MG in EMPTY BAG 1 BAG IVPB STA (13:45)
[2018-05-14 13:56] LABS: Glucose,Whole Blood 102 mg/dL (75-99)
[2018-05-14 16:46] LABS: Glucose,Whole Blood 139 mg/dL (75-99)
[2018-05-14] MEDS ORDERED: NON-FORMULARY DRUG (Turmeric Root Extract [Turmeric] 500 MG) PO SCH (17:00)
[2018-05-14] MEDS ORDERED: MIDODRINE 5 MG TAB PO SCH (17:30)
[2018-05-14] MEDS: FERROUS SULFATE 325 MG TAB PO SCH (17:40)
[2018-05-14] MEDS: MULTIVITAMINS, THERA 1 EACH TAB PO SCH (17:40)
[2018-05-14] MEDS: ALLOPURINOL 300 MG TAB PO SCH (17:40)
[2018-05-14] MEDS: MEROPENEM 1 GM in SODIUM CHLORIDE 0.9% 100 ML IVPB SCH ×2 (18:42→23:16)
[2018-05-14] MEDS ORDERED: MIDODRINE 5 MG TAB PO ONE (20:00)
--- NOTE | 2018-05-14 20:30 | CONS ---
CONSULTATION DATE OF SERVICE: 05/14/2018. REASON FOR CONSULTATION: Sepsis. HISTORY OF PRESENT ILLNESS: The patient is an 82-year-old, male, well known to my service with a previous admission to this facility of ESBL E coli bacteremia secondary to urinary source with the patient admitted with meropenem and Invanz. The patient was doing well. Even yesterday the patient and the family went to [place] and the said they had a good day. This morning when he woke up the patient feeling weak, lethargic and no energy. The took a temperature he was noticed to have a fever of 101 degrees Fahrenheit and gave him a Tylenol. Rechecked the fever and was still elevated. Subsequently brought the patient to the ER. The patient denies having any headache or URI symptoms. No chest pain. No shortness of breath or cough. No abdominal pain. No diarrhea. The patient denies any significant urinary symptoms to me or difficulty burning. However, the ER physician noted to say that the patient had been urinary quite frequently lately with no blood or mucus in it. The patient also has chronic swelling in his left leg after the patient did have bypass surgery with vein grafting from that leg with minimal swelling and a little dull aching pain through that leg 04/30, and no radiation. With these symptoms, the patient has been evaluated by the ER physician. On arrival to the ER, the patient has been afebrile with a fever of 101.1 degrees Fahrenheit, subsequent spiking a fever 103 this afternoon that prompted this infectious disease consultation. Patient with further workup in the ER including a UA that has been positive with large leukocyte esterase with 101, 82 WBC, slightly elevated troponin. White count was elevated to 15,000. Creatinine was 1.35. Influenza serology was negative and the chest x-ray report negative. REVIEW OF SYSTEMS: Positive points have been mentioned in HPI. Rest of the 14 systems has been negative. PAST MEDICAL HISTORY: ESBL E coli bacteremia and urinary tract infection. Coronary artery disease, diabetes mellitus, hypertension, hyperlipidemia, osteoarthritis, prostate cancer, right knee insufficiency, sleep apnea, and radiation cystitis. PAST SURGICAL HISTORY: PTCA with stent and cardiac valve replacement. SOCIAL HISTORY: Remote history of smoking. No drinking or drug use. FAMILY HISTORY: Mother with history of MD. Father with history of diabetes and coronary artery disease. ALLERGIES: No known drug allergies. MEDICATION: Currently include the patient is on Zyloprim, aspirin, Lipitor, Os-Archie, E coli, Cymbalta, Pepcid, iron sulfate, Neurontin, heparin, Tradjenta, Rocephin 1 g daily, Glucophage, midodrine, Demadex. PHYSICAL EXAMINATION: Blood pressure is 87-52 with a pulse of 83. Temperature 97.7, T-max is 103. He is 93% on 3-L nasal cannula. General description is an elderly male lying in bed in no distress. No tachypnea or accessory muscle of respiration use. HEENT: Shows pallor, no scleral icterus. Oral mucosa membrane is dry. No pharyngeal erythema or thrush. NECK: Trachea central. No thyromegaly. LUNGS: Unlabored breathing. Clear to auscultation anteriorly. No wheeze or crackle. HEART: S1, S2. Regular rate and rhythm. ABDOMEN: Soft, no tenderness. No guarding. No rigidity. No organomegaly. EXTREMITIES: Some trace edema feet. Left leg with minimal swelling and redness on the [place], slightly warm to touch. SKIN: No rash or mass palpable. NEUROLOGICAL: Patient is awake, alert, oriented x3. Mood and affect normal. LABS: Hemoglobin 11.1, white count 15, BUN of 8, creatinine 1.34. Lactic acid of 3.2. Troponin is slightly elevated. Urine is positive. Influenza serology was negative. DIAGNOSTIC IMPRESSION AND PLAN: 1. Patient admitted to the hospital with sepsis in this patient who did have fever of 103 Fahrenheit. The patient has hypertension, tachycardia, elevated lactic acid and significant positive UA, likely point was urinary source in this who patient did have a history of a ESBL E coli urinary tract infection and bacteremic questionably same or different enteric gram-negative pathogen. 2. Patient also has mild cellulitis of left lower extremity that could be contributing to some of his component of sepsis. PLAN: 1. Discontinue the Rocephin. 2. Start the patient on meropenem 1 g q.8 hours. 3. IV fluid and hold on the diuretics. 4. We will follow on his clinical condition and culture to further adjust medication if needed. Thank you for this consultation. Will follow this patient along with you. MMODL / IJN: [id number] /
[2018-05-14 20:42] LABS: Glucose,Whole Blood 139 mg/dL (75-99)
[2018-05-14] MEDS ORDERED: NON-FORMULARY DRUG (Glucosam/Chon-Msm1/C/Mang/Bosw [Glucosamine-Chondroitin Tablet] 1 TAB) PO SCH (21:00)
[2018-05-14] MEDS: HYDROCORTISONE SUCCINATE 100 MG/2 ML VIAL IV SCH ×2 (21:06→23:16)
[2018-05-14] MEDS: ATORVASTATIN 10 MG TAB PO SCH (21:06)
[2018-05-14] MEDS: DOCUSATE 100 MG CAP PO SCH (21:06)
[2018-05-14] MEDS: GABAPENTIN 300 MG CAP PO SCH (21:07)
[2018-05-14] MEDS: metFORMIN 500 MG TAB PO SCH (21:07)
[2018-05-14] MEDS: HEPARIN SODIUM,PORCINE 5,000 UNIT/ML 1 ML VIAL SQ SCH (21:07)
[2018-05-14] MEDS: FAMOTIDINE 20 MG TAB PO SCH (21:07)
[2018-05-14] MEDS: LINAGLIPTIN 5 MG TABLET PO SCH (21:07)
[2018-05-15 06:11] LABS: Glucose,Whole Blood 150 mg/dL (75-99)
[2018-05-15] MEDS: MIDODRINE 5 MG TAB PO SCH ×2 (06:49→17:56)
[2018-05-15] MEDS: Mirabegron [Myrbetriq] 50 MG PO SCH (07:53)
[2018-05-15] MEDS: ASPIRIN 81 MG PO SCH (08:09)
[2018-05-15] MEDS: HEPARIN SODIUM,PORCINE 5,000 UNIT/ML 1 ML VIAL SQ SCH ×2 (08:09→20:30)
[2018-05-15] MEDS: CALCIUM CARB-VIT D 500MG-200UN 1 EACH TAB PO SCH (08:09)
[2018-05-15] MEDS: DOCUSATE 100 MG CAP PO SCH ×2 (08:09→20:30)
[2018-05-15] MEDS: DULoxetine HCL 30 MG CAPSULE.DR PO SCH ×2 (08:09→08:27)
[2018-05-15] MEDS: TORSEMIDE 20 MG TAB PO SCH (08:09)
[2018-05-15] MEDS: FAMOTIDINE 20 MG TAB PO SCH (08:09)
[2018-05-15] MEDS: MEROPENEM 1 GM in SODIUM CHLORIDE 0.9% 100 ML IVPB SCH ×2 (08:10→20:33)
[2018-05-15] MEDS: HYDROCORTISONE SUCCINATE 100 MG/2 ML VIAL IV SCH ×3 (08:10→23:48)
--- NOTE | 2018-05-15 09:49 | P.CRDCN ---
History of Present Illness Consult date: 05/15/18 Requesting physician: Alfredo Self Reason for Consult (text): Abnormal troponins Chief complaint: Fever, UTI History of present illness: This is an 82-year-old gentleman with past medical history significant for prostate cancer status post radiation therapy, coronary artery disease status post three-vessel CABG and aortic valve replacement, diabetes, hypertension, hyperlipidemia, who has had multiple admissions to the hospital since February, treated for ESBL E. coli UTI with E. coli sepsis and septic shock, acute hypoxic respiratory failure requiring BiPAP secondary to sepsis, pulmonary edema, secondary to systolic congestive heart failure, acute kidney injury. Patient was also significantly hypotensive requiring subsequent admission during that time. Patient overall had been feeling well, he actually drove a car on Tuesday which was the first time since all of this started in February and he's been able to drive. He drove over to [facility] overall he had a great morning. On arriving home he lay down to have a knot, upon wakening he was severely diaphoretic and clammy, running a temperature of 101-2102. For this reason he came to the emergency room for further evaluation and treatment. Patient did have an echocardiogram with Doppler study performed in February which revealed an ejection fraction of 25-30%, with akinesis noted in the mid anterior, apical anterior inferior and septal area. There was mild regurg of the bioprosthetic aortic valve noted. His echo just prior to that had been in the range of 40%. Chest x-ray on admission here did not reveal any acute process. His initial EKG on presentation here showed what appears to be a sinus tachycardia or SVT, subsequent EKG shows normal sinus rhythm with occasional PVC. Blood pressure on arrival here 106/60 with a heart rate of 1:30 , temperature 101, 87% on room air. His temperature did go up to 103. Blood pressure this morning 108/60 with a heart rate in the 70s, temperature 98.4. White blood cell count 15.0, hemoglobin 11.2, platelet count 185. Sodium 138, potassium 4.7, BUN 18 and creatinine 1.3. Troponins 0.15, 0.7, 1.7. Urinalysis shows significant UTI, influenza A and B-. Urine and blood cultures have been sent. Patient denies having any chest discomfort during any of this episode, overall he had been feeling well. No signs of dysuria or urinary frequency. No shortness of breath. 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 Anemia with blood transfusions.02/25/2018 WAS IN [facility] FOR SEPSIS UTI ECOLI INFECTION. HAS A MEDLINE PORT LEFT UPPER ARM FROM [facility] 03/22/2018 History of Any Multi-Drug Resistant Organisms: ESBL Date of last positivie culture/infection: 02/25/18 MDRO Source:: urine, blood esbl Past Surgical History: Cardiac Valve Replacement, Coronary Bypass/CABG, Heart Catheterization Additional Past Surgical History / Comment(s): 03/02/17 cystoscopy/evacuation clots and fulguration bladder, 01/20/12 CABG-3 vessel with aortic valve. Past Anesthesia/Blood Transfusion Reactions: No Reported Reaction Past Psychological History: No Psychological Hx Reported Additional Psychological History / Comment(s): Pt resides with his spouse. He ambulates with a walker. He drives. 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 He drinks occasional alcohol. He denies illicit drug use. Past Drug Use History: None Reported - Past Family History Mother Family Medical History: Myocardial Infarction ([place]) Additional Family Medical History / Comment(s): Mother at age 67 from a myocardial infarction. Father Family Medical History: Diabetes Mellitus, Myocardial Infarction ([place]) Additional Family Medical History / Comment(s): Father from complications from diabetes mellitus that was uncontrolled with frequent episodes of coma. He also has history of myocardial infarction. The patient has no children and no siblings. Medications and Allergies Home Medications Medication Instructions Recorded Confirmed Type Allopurinol [Zyloprim] 300 mg PO Q48H 03/01/17 05/14/18 History Docusate [Colace] 100 mg PO BID 03/01/17 05/14/18 History Glucosam/Donnie-Msm1/C/Pardeep/Bosw 1 tab PO HS 03/01/17 05/14/18 History [Glucosamine-Chondroitin Tablet] Multivitamins, Thera [Multivitamin 1 tab PO DAILY@1700 03/01/17 05/14/18 History (formulary)] Simvastatin [Zocor] 20 mg PO HS 03/01/17 05/14/18 History Mirabegron [Myrbetriq] 50 mg PO DAILY 06/27/17 05/14/18 History sitaGLIPtin PHOS/metFORMIN HCL 1 tab PO HS 06/27/17 05/14/18 History [Janumet 50-500 mg Tablet] Calcium Carbonate/Vitamin D3 1 tab PO DAILY 10/11/17 05/14/18 History [Calcium 600-Vit D3 200 Tablet] Turmeric Root Extract [Turmeric] 500 mg PO DAILY@1700 10/11/17 05/14/18 History Ferrous Sulfate [Iron (65 MG 325 mg PO DAILY@1700 02/25/18 05/14/18 History Elemental)] Gabapentin [Neurontin] 300 mg PO HS #0 03/06/18 05/14/18 Rx Torsemide [Demadex] 20 mg PO DAILY #30 tab 03/27/18 05/14/18 Rx Aspirin [[place] Aspirin EC] 81 mg PO DAILY 05/14/18 05/14/18 History Famotidine [Pepcid] 20 mg PO BID 05/14/18 05/14/18 History Midodrine [ProAmatine] 5 mg PO BID 05/14/18 05/14/18 History Allergies Allergy/AdvReac Type Severity Reaction Status Date / Time No Known Allergies Allergy Verified 05/14/18 09:50 Physical Exam Vitals: Vital Signs Temp Pulse Pulse Resp BP BP Pulse Ox 05/15/18 09:06 96 05/15/18 08:03 98.4 F 77 18 107/69 96 05/15/18 04:00 97.3 F L 69 18 113/68 97 05/15/18 00:00 97.6 F 77 18 123/62 94 L 05/14/18 20:00 96.7 F L 77 18 105/57 99 05/14/18 19:04 97.7 F 79 18 85/53 97 05/14/18 18:18 97.7 F 83 18 87/52 96 05/14/18 17:40 98.2 F 05/14/18 17:22 97.5 F L 90 18 93/47 97 05/14/18 15:24 99.2 F 99 16 96/56 96 05/14/18 14:20 114 H 18 104/54 92 L 05/14/18 14:11 118 H 18 97/64 92 L 05/14/18 14:05 103 F H 123 H 18 119/68 94 L 05/14/18 13:53 137 H 148/82 05/14/18 13:46 102.8 F H 147 H 05/14/18 13:33 101.9 F H 140 H 18 159/74 97 05/14/18 13:12 101.1 F H 64/38 05/14/18 11:15 98.4 F 80 18 121/61 97 05/14/18 10:22 78 18 103/63 98 Intake and Output 05/14/18 05/15/18 05/15/18 22:59 06:59 14:59 Intake Total 400 480 Balance 400 480 Intake: Intake, IV Titration 400 Amount ACETAMINOPHEN IV (For NPO 400 ) 1,000 mg In Empty Bag 1 bag @ 400 mls/hr IVPB ONCE STA Rx#:[id number] Oral 480 Other: Voiding Method Urinal Urinal Urinal # Voids 3 1 Weight 117.8 kg PHYSICAL EXAMINATION: GENERAL: 82-year-old gentleman in no acute distress at the time of my examination HEENT: Head is atraumatic, normocephalic. Pupils equal, round. Sclera anicteric. Conjunctiva are clear. Mucous membranes of the mouth are moist. Neck is supple. There is no elevated jugular venous pressure. No carotid bruit is heard. HEART EXAMINATION: Heart S1 and S2 systolic murmur is heard. CHEST EXAMINATION: Lungs are clear to auscultation and precussion. No chest wall tenderness is noted on palpation or with deep breathing. ABDOMEN: Soft, nontender. Bowel sounds are heard. No organomegaly noted. EXTREMITIES: 2+ peripheral pulses with 1+ edema noted to the left lower extremity with a mild ear erythema, trace edema to the right lower extremity . NEUROLOGIC patient is awake, alert and oriented 3 . . Results 05/14/18 07:06 05/14/18 07:06 Cardiac Enzymes 05/14/18 05/14/18 Range/Units 11:12 16:42 Troponin I 0.700 H* 1.760 H* (0.000-0.034) ng/mL Current Medications Generic Name Dose Route Start Last Admin Trade Name Robertq PRN Reason Stop Dose Admin Allopurinol 300 mg 05/14/18 18:00 05/14/18 17:40 Zyloprim PO 300 mg Q48H DELMY Administration Aspirin 81 mg 05/15/18 09:00 05/15/18 08:09 Aspirin PO 81 mg DAILY DELMY Administration Atorvastatin Calcium 10 mg 05/14/18 21:00 05/14/18 21:06 Lipitor PO 10 mg HS DELMY Administration Calcium Carbonate 1 each 05/15/18 09:00 05/15/18 08:09 Oscal 500+D PO 1 each DAILY DELMY Administration Docusate Sodium 100 mg 05/14/18 21:00 05/15/18 08:09 Colace PO 100 mg BID DELMY Administration Duloxetine HCl 30 mg 05/15/18 09:00 05/15/18 08:27 Cymbalta PO Not Given DAILY DELMY Famotidine 20 mg 05/14/18 21:00 05/15/18 08:09 Pepcid PO 20 mg BID DELMY Administration Ferrous Sulfate 325 mg 05/14/18 17:00 05/14/18 17:40 Feosol PO 325 mg DAILY@1700 DELMY Administration Gabapentin 300 mg 05/14/18 21:00 05/14/18 21:07 Neurontin PO 300 mg HS DELMY Administration Heparin Sodium (Porcine) 5,000 unit 05/14/18 21:00 05/15/18 08:09 Heparin SQ 5,000 unit Q12HR DELMY Administration Hydrocortisone Sodium Succinate 100 mg 05/14/18 20:00 05/15/18 08:10 Solu-Cortef IV 100 mg Q8HR DELMY Administration Meropenem 1 gm/ Sodium 100 mls @ 200 mls/hr 05/14/18 18:30 05/15/18 08:10 Chloride IVPB 200 mls/hr Q8HR DELMY Administration Protocol Linagliptin 5 mg 05/14/18 21:00 05/14/18 21:07 Tradjenta PO 5 mg HS DELMY Administration Metformin HCl 500 mg 05/14/18 21:00 05/14/18 21:07 Glucophage PO 500 mg HS DELMY Administration Midodrine 10 mg 05/15/18 07:30 05/15/18 06:49 Proamatine PO Not Given AC-BID DELMY Multivitamins 1 each 05/14/18 17:00 05/14/18 17:40 Theragran PO 1 each DAILY@1700 DELMY Administration Mirabegron [ 50 mg 05/15/18 09:00 05/15/18 07:53 Myrbetriq] 50 Mg PO Not Given DAILY DELMY Torsemide 20 mg 05/15/18 09:00 05/15/18 08:09 Demadex PO 20 mg DAILY DELMY Administration Intake and Output 05/14/18 05/15/18 05/15/18 22:59 06:59 14:59 Intake Total 400 480 Balance 400 480 Intake: Intake, IV Titration 400 Amount ACETAMINOPHEN IV (For NPO 400 ) 1,000 mg In Empty Bag 1 bag @ 400 mls/hr IVPB ONCE STA Rx#:[id number] Oral 480 Other: Voiding Method Urinal Urinal Urinal # Voids 3 1 Weight 117.8 kg 05/14/18 07:06 05/14/18 07:06 EKG Interpretations (text) Initial EKG shows a supraventricular tachycardia, subsequent EKG shows a normal sinus rhythm Assessment and Plan Plan: Assessment and plan 1 UTI, temperature up to 103. Urine and blood cultures have been sent. 2. Ischemic cardiomyopathy with documented ejection fraction of 25-30% by echo performed in February 3. Recent hospitalizations for ESBL E. coli UTI with E. coli sepsis and septic shock. Patient is continued to have hypotensive blood pressure readings since discharge. Patient has been on Midodrine and Florinef . 4. 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 3. Diabetes mellitus type 2, insulin requiring. 4. Hypertension. 5. CAD status post CABG. 6. Status post aortic valve replacement with bioprosthetic aortic valve. 7. Hyperlipidemia. 8. Chronic kidney disease stage II. 9. Anemia of chronic disease. 10 abnormal troponin, likely secondary to sepsis and tachycardia. Patient denies having any chest discomfort. 11 sinus tachycardia vs SVT Plan We will repeat an echocardiogram with Doppler study. Continue baby aspirin, Lipitor, further recommendations to follow. DNP note has been reviewed, I agree with a documented findings and plan of care. Patient was seen and examined.
[2018-05-15 11:37] LABS: Glucose,Whole Blood 149 mg/dL (75-99)
--- NOTE | 2018-05-15 13:02 | P.HPIM ---
History of Present Illness H&P Date: 05/14/18 Chief Complaint: Sepsis, UTI, high fever and chills, hypertension, cardiomyopathy, A. fib 82-year-old male one of my office patient with long-standing history of prostate cancer, diabetes, cardiomyopathy was diagnosed a few weeks ago, [place] [place] with RVR, and severe hypotension. Patient was in [facility] for several weeks after his last hospitalization with sepsis and pulmonary edema when found to have cardiopathy and worsening symptom at the time. Patient ended up coming back to the hospital and stayed for few more days for severe hypotension and worsening symptoms from alpha festus medication for urinary retention which patient was taking off at the time and done well but continued to be on midodrine for hypotension. Patient was seen in the office recently for follow-up since he left [facility] also has been seen Dr. Buckley urology regular basis and has been doing micro- urine tests on regular basis. Patient presented to the emergency room at [facility] today because developed to have fever chills not feeling well with mild confusion worsening symptoms worsening burning irritation frequency and urgency at the time was seen his white blood cell was elevated urine test was positive his temperature was 101. Patient was started on Rocephin realizing his urine test from the last few visit was Proteus and Escherichia coli and responded both time to antibiotic like Rocephin. With his blood pressure being low his troponin was mildly elevated patient is on to have cardiopathy patient will be admitted to the intensive care unit will be seeing cardiology CK with troponin 3 will be done also will consult infectious disease and urology continue sepsis protocol except watch for any fluid overload might wish patient into failure. Review of Systems CONSTITUTIONAL: Obese. Well-developed no acute respiratory distress. Looks sick febrile severe tiredness EYES: No icterus sclerae, no conjunctivitis. EARS, NOSE, MOUTH, THROAT, and FACE: No sore throat, lymphadenopathy, carotid bruits or deformity. RESPIRATORY: No SOB cough or wheezes. CARDIOVASCULAR: No CP, Palpitation, PND, Orthopnea, or angina. GASTROINTESTINAL: No Abd pain, Nausea or vomiting, no Diarrhea or constipation, No GI Bleed, no distention or masses. GENITOURINARY: no kidney stones. Positive unit tract infection irritation discomfort and incontinence. INTEGUMENT/BREAST: Negative for any muscular injury with mild osteoarthritis.. HEMATOLOGIC/LYMPHATIC: Negative for bleed or purpura. MUSCULOSKELTAL: Negative for Myalgia or arthralgia. NEURLOGICAL: No LOC, Sz or syncope, blurred vision dizziness or abnormality.. BEHAVIORAL/PSYCH: Negative. ENDOCRINE: Negative. 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 Anemia with blood transfusions.02/25/2018 WAS IN [facility] FOR SEPSIS UTI ECOLI INFECTION. HAS A MEDLINE PORT LEFT UPPER ARM FROM [facility] 03/22/2018 History of Any Multi-Drug Resistant Organisms: ESBL Date of last positivie culture/infection: 02/25/18 MDRO Source:: urine, blood esbl Past Surgical History: Cardiac Valve Replacement, Coronary Bypass/CABG, Heart Catheterization Additional Past Surgical History / Comment(s): 03/02/17 cystoscopy/evacuation clots and fulguration bladder, 01/20/12 CABG-3 vessel with aortic valve. Past Anesthesia/Blood Transfusion Reactions: No Reported Reaction Past Psychological History: No Psychological Hx Reported Additional Psychological History / Comment(s): Pt resides with his spouse. He ambulates with a walker. He drives. 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 He drinks occasional alcohol. He denies illicit drug use. Past Drug Use History: None Reported - Past Family History Mother Family Medical History: Myocardial Infarction ([place]) Additional Family Medical History / Comment(s): Mother at age 67 from a myocardial infarction. Father Family Medical History: Diabetes Mellitus, Myocardial Infarction ([place]) Additional Family Medical History / Comment(s): Father from complications from diabetes mellitus that was uncontrolled with frequent episodes of coma. He also has history of myocardial infarction. The patient has no children and no siblings. Medications and Allergies Home Medications Medication Instructions Recorded Confirmed Type Allopurinol [Zyloprim] 300 mg PO Q48H 03/01/17 05/14/18 History Docusate [Colace] 100 mg PO BID 03/01/17 05/14/18 History Glucosam/Donnie-Msm1/C/Pardeep/Bosw 1 tab PO HS 03/01/17 05/14/18 History [Glucosamine-Chondroitin Tablet] Multivitamins, Thera [Multivitamin 1 tab PO DAILY@1700 03/01/17 05/14/18 History (formulary)] Simvastatin [Zocor] 20 mg PO HS 03/01/17 05/14/18 History Mirabegron [Myrbetriq] 50 mg PO DAILY 06/27/17 05/14/18 History sitaGLIPtin PHOS/metFORMIN HCL 1 tab PO HS 06/27/17 05/14/18 History [Janumet 50-500 mg Tablet] Calcium Carbonate/Vitamin D3 1 tab PO DAILY 10/11/17 05/14/18 History [Calcium 600-Vit D3 200 Tablet] Turmeric Root Extract [Turmeric] 500 mg PO DAILY@1700 10/11/17 05/14/18 History Ferrous Sulfate [Iron (65 MG 325 mg PO DAILY@1700 02/25/18 05/14/18 History Elemental)] Gabapentin [Neurontin] 300 mg PO HS #0 03/06/18 05/14/18 Rx Torsemide [Demadex] 20 mg PO DAILY #30 tab 03/27/18 05/14/18 Rx Aspirin [[place] Aspirin EC] 81 mg PO DAILY 05/14/18 05/14/18 History Famotidine [Pepcid] 20 mg PO BID 05/14/18 05/14/18 History Midodrine [ProAmatine] 5 mg PO BID 05/14/18 05/14/18 History Allergies Allergy/AdvReac Type Severity Reaction Status Date / Time No Known Allergies Allergy Verified 05/14/18 09:50 Physical Exam Vitals: Vital Signs Temp Pulse Pulse Resp BP BP Pulse Ox 05/14/18 15:24 99.2 F 99 16 96/56 96 05/14/18 14:20 114 H 18 104/54 92 L 05/14/18 14:11 118 H 18 97/64 92 L 05/14/18 14:05 103 F H 123 H 18 119/68 94 L 05/14/18 13:53 137 H 148/82 05/14/18 13:46 102.8 F H 147 H 05/14/18 13:33 101.9 F H 140 H 18 159/74 97 05/14/18 13:12 101.1 F H 64/38 05/14/18 11:15 98.4 F 80 18 121/61 97 05/14/18 10:22 78 18 103/63 98 05/14/18 08:53 98.7 F 78 18 103/59 97 05/14/18 08:30 80 16 99/64 97 05/14/18 08:00 121 H 16 100/57 97 05/14/18 07:30 131 H 131 H 19 96/58 95 05/14/18 07:05 100.9 F H 136 H 20 98/64 100 05/14/18 06:51 101.1 F H 134 H 18 106/65 97 Intake and Output 05/14/18 05/14/18 05/14/18 06:59 14:59 22:59 Other: Weight 117.934 kg General Appearance: Obese, Alert, cooperative, no distress, appears stated age. Neck HEENT: Supple, no lymphadenopathy, no thyroid enlargement, no carotid bruits. Lungs: Clear to auscultation without crackles or wheezes no rhonchi, no deformity. Chest Wall: Chest wall normal expansion with deep inspiration no tenderness and no deformity was found on exam, no costochondral pain or discomfort. Heart: Regular rate and rhythm, S1, S2 normal, no murmur, rub or gallop. Positive aortic valve click Back: Symmetric, no curvature, ROM normal, no CVA tenderness. Abdomen: Soft, non-tender, bowel sounds active all four quadrants, no masses, no organomegaly. Slight discomfort and lower abdominal region area Extremities: Extremities normal, atraumatic, no cyanosis, positive edema with slight dermatitis of the lower oximetry from the knee down.. Pulses: 2+ and symmetric. Skin: Skin color, texture, tugor normal, no rashes or lesions. Neurologic: Alert oriented x3 cranial nerves II through XII intact, no motor deficit, no abnormal balance or gait. Results CBC & Chem 7: 05/14/18 07:06 05/14/18 07:06 Labs: Abnormal Lab Results - Last 24 Hours (Table) 05/14/18 05/14/18 05/14/18 Range/Units 07:06 07:06 07:06 WBC 15.0 H (3.8-10.6) k/uL RBC 3.59 L (4.30-5.90) m/uL Hgb 11.2 L (13.0-17.5) gm/dL Hct 34.8 L (39.0-53.0) % RDW 16.8 H (11.5-15.5) % Neutrophils # 13.7 H (1.3-7.7) k/uL Lymphocytes # 0.3 L (1.0-4.8) k/uL Creatinine 1.35 H (0.66-1.25) mg/dL Glucose 186 H (74-99) mg/dL POC Glucose (mg/dL) (75-99) mg/dL Plasma Lactic Acid Judd 3.2 H* (0.7-2.0) mmol/L Troponin I (0.000-0.034) ng/mL Urine Protein (Negative) Urine Blood (Negative) Ur Leukocyte Esterase (Negative) Urine RBC (0-5) /hpf Urine WBC (0-5) /hpf Urine WBC Clumps (None) /hpf Urine Bacteria (None) /hpf Urine Mucus (None) /hpf 05/14/18 05/14/18 05/14/18 Range/Units 07:06 07:11 09:30 WBC (3.8-10.6) k/uL RBC (4.30-5.90) m/uL Hgb (13.0-17.5) gm/dL Hct (39.0-53.0) % RDW (11.5-15.5) % Neutrophils # (1.3-7.7) k/uL Lymphocytes # (1.0-4.8) k/uL Creatinine (0.66-1.25) mg/dL Glucose (74-99) mg/dL POC Glucose (mg/dL) 170 H (75-99) mg/dL Plasma Lactic Acid Judd (0.7-2.0) mmol/L Troponin I 0.156 H* (0.000-0.034) ng/mL Urine Protein 2+ H (Negative) Urine Blood Small H (Negative) Ur Leukocyte Esterase Large H (Negative) Urine RBC 6 H (0-5) /hpf Urine WBC >182 H (0-5) /hpf Urine WBC Clumps Many H (None) /hpf Urine Bacteria Occasional H (None) /hpf Urine Mucus Rare H (None) /hpf 05/14/18 05/14/18 05/14/18 Range/Units 11:12 11:20 13:34 WBC (3.8-10.6) k/uL RBC (4.30-5.90) m/uL Hgb (13.0-17.5) gm/dL Hct (39.0-53.0) % RDW (11.5-15.5) % Neutrophils # (1.3-7.7) k/uL Lymphocytes # (1.0-4.8) k/uL Creatinine (0.66-1.25) mg/dL Glucose (74-99) mg/dL POC Glucose (mg/dL) 113 H 102 H (75-99) mg/dL Plasma Lactic Acid Judd (0.7-2.0) mmol/L Troponin I 0.700 H* (0.000-0.034) ng/mL Urine Protein (Negative) Urine Blood (Negative) Ur Leukocyte Esterase (Negative) Urine RBC (0-5) /hpf Urine WBC (0-5) /hpf Urine WBC Clumps (None) /hpf Urine Bacteria (None) /hpf Urine Mucus (None) /hpf Microbiology - Last 24 Hours (Table) 05/14/18 09:30 Urine Culture - Preliminary Urine,Voided Thrombosis Risk Factor Assmnt - Choose All That Apply Any of the Below Risk Factors Present?: Yes Each Factor Represents 1 point: Obesity (BMI >25), Sepsis (< 1month), Swollen legs (current) Other Risk Factors: Yes Each Risk Factor Represents 3 Points: Age 75 years or older Thrombosis Risk Factor Assessment Total Risk Factor Score: 6 Thrombosis Risk Factor Assessment Level: High Risk Assessment and Plan Plan: 1 sepsis and UTI: Patient was admitted to the hospital continue Rocephin continue fluid resuscitation repeat lactic acid continue to monitor patient closely and will consult infectious disease. 2 cardiomyopathy and elevated troponin: Consult cardiology continue patient cardiac testing and repeat troponin 3 in the next 24 hours. 3 severe hypertension: Which can be related to sepsis at this point continue midodrine and continue fluid and hydration. 4 A. fib with RVR: Pulse rates under control patient is not a candidate for anticoagulation currently especially with his recurrent bleeding and anemia. 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 6 type 2 diabetes: Patient is on insulin and oral continue both continue Accu- Chek with sliding scales coverage. 7 chronic iron deficiency anemia: Continue iron supplement continue multivitamins as well no need for blood transfusion. 8 chronic kidney disease stage II, continue to eliminate any nephrotoxic agent continue to monitor his BUN/creatinine. 9 obstructive sleep apnea: Patient will use his CPAP on regular basis. 10 GI prophylaxis: Patient is on Pepcid currently. 11 hyperlipidemia: Continue statin. 12 DVT prophylaxis: Patient be on heparin 5000 units subcutaneous twice a day. CODE STATUS: Full code. Admit patient to inpatient status for more than 2 nights.
--- NOTE | 2018-05-15 13:07 | ECHOF ---
Referral Reason:elevated troponin MEASUREMENTS -------- HEIGHT: 177.8 cm WEIGHT: 117.5 kg BP: 113/68 RVIDd: 3.9 cm (< 3.3) IVSd: 1.1 cm (0.6 - 1.1) LVIDd: 5.9 cm (3.9 - 5.3) LVPWd: 1.2 cm (0.6 - 1.1) IVSs: 1.6 cm LVIDs: 5.1 cm LVPWs: 1.5 cm LAESV Index (A-L): 38.04 ml/m Ao Diam: 3.7 cm (2.0 - 3.7) AV Cusp: 2.1 cm (1.5 - 2.6) LA Diam: 3.2 cm (2.7 - 3.8) MV E Theodore: 0.91 m/s MV DecT: 226 ms MV A Theodore: 0.92 m/s MV E/A Ratio: 1.00 AV maxP.74 mmHg AV meanP.91 mmHg RAP: 15.00 mmHg RVSP: 33.73 mmHg FINDINGS -------- Sinus rhythm. This was a technically difficult study with suboptimal views. The left ventricular size is normal. Left ventricular wall thickness is normal. There is severe g lobal hypokinesis of LV . Overall left ventricular systolic function is moderate-severely impaired with, an EF between 30 - 35 %. The right ventricle is mild to moderately enlarged. LA is moderately dilated 34-39 ml/m2 RA appears enlarged. 4 ml of Lumason was utilized for enhancement of images. There is moderate aortic valve sclerosis. Trace amount of aortic regurgitation. There is mild ao rtic stenosis present. Peak/mean gradient across the Aortic Valve is 29.74mmHg / 17.91mmHg. The mitral valve leaflets are mildly thickened. Mild mitral annular calcification present. Mild-t o-moderate mitral regurgitation is present. Trace tricuspid regurgitation present. There is borderline pulmonary hypertension. The right vent ricular systolic pressure, as measured by Doppler, is 33.73mmHg. Trace/mild (physiologic) pulmonic regurgitation. The aortic root size is normal. The inferior vena cava is dilated with poor inspiratory collapse which is consistent with estimated r ight atrial pressure of 20 mmHg. There is no pericardial effusion. CONCLUSIONS -------- 1. Sinus rhythm. 2. This was a technically difficult study with suboptimal views. 3. The left ventricular size is normal. 4. Left ventricular wall thickness is normal. 5. There is severe global hypokinesis of LV . 6. Overall left ventricular systolic function is moderate-severely impaired with, an EF between 30 - 35 %. 7. The right ventricle is mild to moderately enlarged. 8. LA is moderately dilated 34-39 ml/m2 9. RA appears enlarged. 10. 4 ml of Lumason was utilized for enhancement of images. 11. There is moderate aortic valve sclerosis. 12. Trace amount of aortic regurgitation. 13. There is mild aortic stenosis present. 14. Peak/mean gradient across the Aortic Valve is 29.74mmHg / 17.91mmHg. 15. The mitral valve leaflets are mildly thickened. 16. Mild mitral annular calcification present. 17. Dnbc-yb-wdtnomrd mitral regurgitation is present. 18. Trace tricuspid regurgitation present. 19. There is borderline pulmonary hypertension. 20. The right ventricular systolic pressure, as measured by Doppler, is 33.73mmHg. 21. Trace/mild (physiologic) pulmonic regurgitation. 22. The aortic root size is normal. 23. The inferior vena cava is dilated with poor inspiratory collapse which is consistent with estimat ed right atrial pressure of 20 mmHg. 24. There is no pericardial effusion. DIGITAL ANALYTICS MANAGER: Boy Santoyo RDCS
[2018-05-15 16:43] LABS: Glucose,Whole Blood 155 mg/dL (75-99)
--- NOTE | 2018-05-15 17:15 | PN ---
PROGRESS NOTE DATE OF SERVICE: 05/15/2018. REASON FOR FOLLOWUP: Sepsis, question of UTI versus left leg cellulitis. INTERVAL HISTORY: The patient is afebrile. The patient overall is feeling better. Breathing comfortably. Denies having any chest pain or any cough. No abdominal pain or diarrhea. PHYSICAL EXAMINATION: Blood pressure 117/68 with a pulse of 74, temperature 99. He is 93% on room air. General description is an elderly male lying in bed in no distress. Respiratory system: Unlabored breathing. Clear to auscultation anteriorly. Heart S1, S2. Regular rate and rhythm. Abdomen soft, no tenderness. Left leg with minimal swelling and redness. No open wound. No drainage. LABS: No new labs have been obtained today. Culture has been negative so far. DIAGNOSTIC IMPRESSION AND PLAN: Patient admitted to the hospital with sepsis with concern for possible urinary source as the patient did have history of ESBL E coli urinary tract infection and bacteremia. Plus-minus left leg cellulitis. Patient is currently covered with meropenem to continue while waiting for the culture to finalize. Continue supportive care. MMODL / IJN: [id number] /
[2018-05-15] MEDS: MULTIVITAMINS, THERA 1 EACH TAB PO SCH (17:57)
[2018-05-15] MEDS: FERROUS SULFATE 325 MG TAB PO SCH (17:57)
[2018-05-15] MEDS: ATORVASTATIN 10 MG TAB PO SCH (20:30)
[2018-05-15] MEDS: GABAPENTIN 300 MG CAP PO SCH (20:30)
[2018-05-15] MEDS: LINAGLIPTIN 5 MG TABLET PO SCH (20:32)
[2018-05-15] MEDS: metFORMIN 500 MG TAB PO SCH (20:32)
[2018-05-15 20:46] LABS: Glucose,Whole Blood 236 mg/dL (75-99)
[2018-05-16 06:13] LABS: Glucose,Whole Blood 144 mg/dL (75-99)
[2018-05-16] MEDS: INSULIN ASPART (NovoLOG) 100 UNIT/ML VIAL SQ SCH ×4 (06:56→22:01)
[2018-05-16] MEDS: MIDODRINE 5 MG TAB PO SCH ×2 (06:56→17:41)
--- NOTE | 2018-05-16 07:36 | P.GSCN ---
History of Present Illness Consult date: 05/15/18 History of present illness: The patient is an 82 yomale with prostate cancer known to Dr Buckley He has had problems with voiding, incontinence and recurrent infections. His cancer is been stable. He was admitted with a uti and sepsis. the culture grew multiple organisms. The wbc was [address] Buckley was asked to see the patient I am seeing him in his absence. He doesnt have a catheter at present. His cr is 1.3 His urine microscopically looks infected. He is on rocephin. Apparently he has had 7 infections in the last 6 months. It sounds as if he has had somewhat resistant organisms. 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 He was last seen by Dr. Buckley last week. Other than the fever he is not aware of these infections. He has not had any bleeding. He is feeling better at present. His urine residual was not high per the patient. 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 Anemia with blood transfusions.02/25/2018 WAS IN [facility] FOR SEPSIS UTI ECOLI INFECTION. HAS A MEDLINE PORT LEFT UPPER ARM FROM [facility] 03/22/2018 History of Any Multi-Drug Resistant Organisms: ESBL Year Discovered:: 02/25/18 MDRO Source:: urine, blood esbl Past Surgical History: Cardiac Valve Replacement, Coronary Bypass/CABG, Heart Catheterization Additional Past Surgical History / Comment(s): 03/02/17 cystoscopy/evacuation clots and fulguration bladder, 01/20/12 CABG-3 vessel with aortic valve. Past Anesthesia/Blood Transfusion Reactions: No Reported Reaction Past Psychological History: No Psychological Hx Reported Additional Psychological History / Comment(s): Pt resides with his spouse. He ambulates with a walker. He drives. 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 He drinks occasional alcohol. He denies illicit drug use. Past Drug Use History: None Reported - Past Family History Mother Family Medical History: Myocardial Infarction (AL) Additional Family Medical History / Comment(s): Mother at age 67 from a myocardial infarction. Father Family Medical History: Diabetes Mellitus, Myocardial Infarction (AL) Additional Family Medical History / Comment(s): Father from complications from diabetes mellitus that was uncontrolled with frequent episodes of coma. He also has history of myocardial infarction. The patient has no children and no siblings. Medications and Allergies Home Medications Medication Instructions Recorded Confirmed Type Allopurinol [Zyloprim] 300 mg PO Q48H 03/01/17 05/14/18 History Docusate [Colace] 100 mg PO BID 03/01/17 05/14/18 History Glucosam/Donnie-Msm1/C/Pardeep/Bosw 1 tab PO HS 03/01/17 05/14/18 History [Glucosamine-Chondroitin Tablet] Multivitamins, Thera [Multivitamin 1 tab PO DAILY@1700 03/01/17 05/14/18 History (formulary)] Simvastatin [Zocor] 20 mg PO HS 03/01/17 05/14/18 History Mirabegron [Myrbetriq] 50 mg PO DAILY 06/27/17 05/14/18 History sitaGLIPtin PHOS/metFORMIN HCL 1 tab PO HS 06/27/17 05/14/18 History [Janumet 50-500 mg Tablet] Calcium Carbonate/Vitamin D3 1 tab PO DAILY 10/11/17 05/14/18 History [Calcium 600-Vit D3 200 Tablet] Turmeric Root Extract [Turmeric] 500 mg PO DAILY@1700 10/11/17 05/14/18 History Ferrous Sulfate [Iron (65 MG 325 mg PO DAILY@1700 02/25/18 05/14/18 History Elemental)] Gabapentin [Neurontin] 300 mg PO HS #0 03/06/18 05/14/18 Rx Torsemide [Demadex] 20 mg PO DAILY #30 tab 03/27/18 05/14/18 Rx Aspirin [[place] Aspirin EC] 81 mg PO DAILY 05/14/18 05/14/18 History Famotidine [Pepcid] 20 mg PO BID 05/14/18 05/14/18 History Midodrine [ProAmatine] 5 mg PO BID 05/14/18 05/14/18 History Allergies Allergy/AdvReac Type Severity Reaction Status Date / Time No Known Allergies Allergy Verified 05/14/18 09:50 Surgical - Exam Vital Signs Temp Pulse Resp BP Pulse Ox 101.1 F H 134 H 18 106/65 97 05/14/18 06:51 05/14/18 06:51 05/14/18 06:51 05/14/18 06:51 05/14/18 06:51 - General well developed, well nourished, no distress - Eyes PERRL - ENT no hearing loss - Neck trachea midline - Respiratory normal expansion, normal respiratory effort - Cardiovascular Rhythm: regular - Abdomen Abdomen: soft, non tender - Genitourinary normal penis with no external lesions, testicles present - Integumentary no rash, no growths - Neurologic normal coordination - Musculoskeletal normal posture - Psychiatric oriented to time, oriented to person, oriented to place, speech is normal, memory intact Results - Labs 05/14/18 07:06 05/14/18 07:06 Abnormal Lab Results - Last 24 Hours (Table) 05/14/18 05/15/18 05/15/18 Range/Units 20:41 06:09 11:34 POC Glucose (mg/dL) 139 H 150 H 149 H (75-99) mg/dL 05/15/18 Range/Units 16:40 POC Glucose (mg/dL) 155 H (75-99) mg/dL Microbiology - Last 24 Hours (Table) 05/14/18 09:30 Urine Culture - Final Urine,Voided 05/14/18 07:06 Blood Culture - Preliminary Blood No Growth after 24 hours Assessment and Plan Assessment: Impression: Uti w sepsis. Urinary incontinence. History of radiation cystitis with hematuria. Recurrent urinary tract infection. Prostate cancer stable. Multiple medical illnesses. Plan The patient is on ab. His cancer has been dealt with The oral ab will be chosen by Dr Block. I will review his office chart to see if there is anything else urologically we have 2 offer.
[2018-05-16] MEDS: HEPARIN SODIUM,PORCINE 5,000 UNIT/ML 1 ML VIAL SQ SCH ×2 (08:58→22:01)
[2018-05-16] MEDS: CALCIUM CARB-VIT D 500MG-200UN 1 EACH TAB PO SCH (08:59)
[2018-05-16] MEDS: FAMOTIDINE 20 MG TAB PO SCH (08:59)
[2018-05-16] MEDS: HYDROCORTISONE SUCCINATE 100 MG/2 ML VIAL IV SCH ×3 (08:59→23:24)
[2018-05-16] MEDS: ASPIRIN 81 MG PO SCH (08:59)
[2018-05-16] MEDS: DOCUSATE 100 MG CAP PO SCH ×2 (08:59→22:00)
[2018-05-16] MEDS: DULoxetine HCL 30 MG CAPSULE.DR PO SCH (09:01)
[2018-05-16] MEDS: TORSEMIDE 20 MG TAB PO SCH (09:18)
[2018-05-16] MEDS: MEROPENEM 1 GM in SODIUM CHLORIDE 0.9% 100 ML IVPB SCH (11:12)
[2018-05-16 11:31] LABS: Glucose,Whole Blood 111 mg/dL (75-99)
[2018-05-16] MEDS: Mirabegron [Myrbetriq] 50 MG PO SCH (12:07)
--- NOTE | 2018-05-16 12:25 | P.PN ---
Subjective Progress Note Date: 05/15/18 82-year-old male one of my office patient with long-standing history of prostate cancer, diabetes, cardiomyopathy was diagnosed a few weeks ago, AAnjelica ji with RVR, and severe hypotension. Patient was in [facility] for several weeks after his last hospitalization with sepsis and pulmonary edema when found to have cardiopathy and worsening symptom at the time. Patient ended up coming back to the hospital and stayed for few more days for severe hypotension and worsening symptoms from alpha festus medication for urinary retention which patient was taking off at the time and done well but continued to be on midodrine for hypotension. Patient was seen in the office recently for follow-up since he left [facility] also has been seen Dr. Buckley urology regular basis and has been doing micro- urine tests on regular basis. Patient presented to the emergency room at [facility] today because developed to have fever chills not feeling well with mild confusion worsening symptoms worsening burning irritation frequency and urgency at the time was seen his white blood cell was elevated urine test was positive his temperature was 101. Patient was started on Rocephin realizing his urine test from the last few visit was Proteus and Escherichia coli and responded both time to antibiotic like Rocephin. With his blood pressure being low his troponin was mildly elevated patient is on to have cardiopathy patient will be admitted to the intensive care unit will be seeing cardiology CK with troponin 3 will be done also will consult infectious disease and urology continue sepsis protocol except watch for any fluid overload might wish patient into failure. 05/15: Patient states that he slept well last night. He did use CPAP. Patient voices frustration about the recurrence of UTIs. He states he does have some incontinence in once no the cause. Dr. Self described to him in detail underlying problem which causes him to have frequent UTIs. We are adding in PT , OT. Dr. Block has seen him and recommended antibiotics the form of meropenem. We will add in site Cortef 100 mg every 8 hours for possible adrenal insufficiency from recent hospitalizations. Consult with urology is in place Review of Systems CONSTITUTIONAL: Obese. Well-developed no acute respiratory distress. Complains of feeling tired EYES: No icterus sclerae, no conjunctivitis. EARS, NOSE, MOUTH, THROAT, and FACE: No sore throat, lymphadenopathy, carotid bruits or deformity. RESPIRATORY: No SOB cough or wheezes. CARDIOVASCULAR: No CP, Palpitation, PND, Orthopnea, or angina. GASTROINTESTINAL: No Abd pain, Nausea or vomiting, no Diarrhea or constipation, No GI Bleed, no distention or masses. GENITOURINARY: no kidney stones. Positive unit tract infection irritation discomfort and incontinence. INTEGUMENT/BREAST: Negative for any muscular injury with mild osteoarthritis.. HEMATOLOGIC/LYMPHATIC: Negative for bleed or purpura. MUSCULOSKELTAL: Negative for Myalgia or arthralgia. NEURLOGICAL: No LOC, Sz or syncope, blurred vision dizziness or abnormality.. BEHAVIORAL/PSYCH: Negative. ENDOCRINE: Negative. Objective - Vital Signs Vital signs: Vital Signs Temp 99 F 05/15/18 12:11 Pulse 74 05/15/18 12:11 Resp 18 05/15/18 12:11 BP 117/68 05/15/18 12:11 Pulse Ox 96 05/15/18 12:11 Intake & Output 05/14/18 05/15/18 05/15/18 18:59 06:59 18:59 Intake Total 400 580 Balance 400 580 Weight 117.8 kg Intake: Intake, IV Titration 400 100 Amount ACETAMINOPHEN IV (For NPO 400 ) 1,000 mg In Empty Bag 1 bag @ 400 mls/hr IVPB ONCE STA Rx#:[id number] Meropenem 1 gm In Sodium 100 Chloride 0.9% 100 ml @ 200 mls/hr IVPB Q8HR [facility] Rx#:[id number] Oral 480 Other: Voiding Method Urinal Urinal # Voids 3 1 1 # Bowel Movements 1 - Exam General Appearance: Obese, Alert, cooperative, no distress, appears stated age. Patient is resting in bed. His is at the bedside. Neck HEENT: Supple, no lymphadenopathy, no thyroid enlargement, no carotid bruits. Lungs: Clear to auscultation without crackles or wheezes no rhonchi, no deformity. Chest Wall: Chest wall normal expansion with deep inspiration no tenderness and no deformity was found on exam, no costochondral pain or discomfort. Heart: Regular rate and rhythm, S1, S2 normal, no murmur, rub or gallop. Positive aortic valve click Back: Symmetric, no curvature, ROM normal, no CVA tenderness. Abdomen: Soft, non-tender, bowel sounds active all four quadrants, no masses, no organomegaly. Slight discomfort and lower abdominal region area Extremities: Extremities normal, atraumatic, no cyanosis, positive edema with slight dermatitis of the lower oximetry from the knee down.. Pulses: 2+ and symmetric. Skin: Skin color, texture, tugor normal, no rashes or lesions. Neurologic: Alert oriented x3 cranial nerves II through XII intact, no motor deficit, no abnormal balance or gait. - Labs CBC & Chem 7: 05/14/18 07:06 05/14/18 07:06 Labs: Abnormal Lab Results - Last 24 Hours (Table) 05/14/18 05/14/18 05/14/18 Range/Units 13:34 16:39 16:42 POC Glucose (mg/dL) 102 H 139 H (75-99) mg/dL Troponin I 1.760 H* (0.000-0.034) ng/mL 05/14/18 05/15/18 05/15/18 Range/Units 20:41 06:09 11:34 POC Glucose (mg/dL) 139 H 150 H 149 H (75-99) mg/dL Troponin I (0.000-0.034) ng/mL Microbiology - Last 24 Hours (Table) 05/14/18 07:06 Blood Culture - Preliminary Blood No Growth after 24 hours 05/14/18 09:30 Urine Culture - Preliminary Urine,Voided Assessment and Plan Plan: 1 sepsis and UTI. Consult with Dr. Block appreciated. Antibiotics changed to meropenem. Urine culture in progress. Consult with urology in place. 2 cardiomyopathy and chronic systolic heart failure. Acute coronary syndrome ruled out. Elevated troponins due to sepsis and tachycardia. Cardiology consult appreciated. 3 severe hypertension: Which can be related to sepsis at this point continue midodrine and continue fluid and hydration. 4 sinus tachycardia. Cardiology consult appreciated. 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 6 type 2 diabetes: Patient is on insulin and oral continue both continue Accu- Chek with sliding scales coverage. 7 chronic iron deficiency anemia: Continue iron supplement continue multivitamins as well no need for blood transfusion. 8 chronic kidney disease stage II, continue to eliminate any nephrotoxic agent continue to monitor his BUN/creatinine. 9 obstructive sleep apnea: Patient will use his CPAP on regular basis. 10 GI prophylaxis: Patient is on Pepcid currently. 11 hyperlipidemia: Continue statin. 12 DVT prophylaxis: Patient be on heparin 5000 units subcutaneous twice a day. CODE STATUS: Full code. Discharge plan: To be determined. PT and OT added. Impression and plan of care have been directed as dictated by the signing physician. Amrita Núñez nurse practitioner acting as scribe for signing physician.
--- NOTE | 2018-05-16 12:29 | P.PN ---
Subjective Progress Note Date: 05/16/18 82-year-old male one of my office patient with long-standing history of prostate cancer, diabetes, cardiomyopathy was diagnosed a few weeks ago, AAnjelica ji with RVR, and severe hypotension. Patient was in [place] for several weeks after his last hospitalization with sepsis and pulmonary edema when found to have cardiopathy and worsening symptom at the time. Patient ended up coming back to the hospital and stayed for few more days for severe hypotension and worsening symptoms from alpha festus medication for urinary retention which patient was taking off at the time and done well but continued to be on midodrine for hypotension. Patient was seen in the office recently for follow-up since he left [facility] also has been seen Dr. Buckley urology regular basis and has been doing micro- urine tests on regular basis. Patient presented to the emergency room at [facility] today because developed to have fever chills not feeling well with mild confusion worsening symptoms worsening burning irritation frequency and urgency at the time was seen his white blood cell was elevated urine test was positive his temperature was 101. Patient was started on Rocephin realizing his urine test from the last few visit was Proteus and Escherichia coli and responded both time to antibiotic like Rocephin. With his blood pressure being low his troponin was mildly elevated patient is on to have cardiopathy patient will be admitted to the intensive care unit will be seeing cardiology CK with troponin 3 will be done also will consult infectious disease and urology continue sepsis protocol except watch for any fluid overload might wish patient into failure. 05/15: Patient states that he slept well last night. He did use CPAP. Patient voices frustration about the recurrence of UTIs. He states he does have some incontinence in once no the cause. Dr. Self described to him in detail underlying problem which causes him to have frequent UTIs. We are adding in PT , OT. Dr. Block has seen him and recommended antibiotics the form of meropenem. We will add in site Cortef 100 mg every 8 hours for possible adrenal insufficiency from recent hospitalizations. Consult with urology is in place 05/16: Patient has been seen by Dr. Nash with recommendations to continue antibiotics per ID. Patient has an appointment next week with Dr. Buckley. Echocardiogram reveals EF 30-35%, severe global hypokinesia of the LV, trace aortic regurgitation, mild aortic stenosis, moderate mitral regurgitation, trace tricuspid regurgitation, borderline pulmonary hypertension. Patient has walked around the entire [place] and also getting up to the bathroom by himself. He did refuse PT this morning. Bladder scan showed only 80 ML's. He does state he feels somewhat better from steroids. Plan to change steroids to oral tomorrow. Review of Systems CONSTITUTIONAL: Obese. No fever no chills. Complains of feeling tired EYES: No icterus sclerae, no conjunctivitis. EARS, NOSE, MOUTH, THROAT, and FACE: No sore throat, lymphadenopathy, carotid bruits or deformity. RESPIRATORY: No SOB cough or wheezes. CARDIOVASCULAR: No CP, Palpitation, PND, Orthopnea, or angina. GASTROINTESTINAL: No Abd pain, Nausea or vomiting, no Diarrhea or constipation, No GI Bleed, no distention or masses. GENITOURINARY: no kidney stones. Positive unit tract infection irritation discomfort and incontinence. INTEGUMENT/BREAST: Negative for any muscular injury with mild osteoarthritis.. HEMATOLOGIC/LYMPHATIC: Negative for bleed or purpura. MUSCULOSKELTAL: Negative for Myalgia or arthralgia. NEURLOGICAL: No LOC, Sz or syncope, blurred vision dizziness or abnormality.. BEHAVIORAL/PSYCH: Negative. ENDOCRINE: Negative. Objective - Vital Signs Vital signs: Vital Signs Temp 97.6 F 05/16/18 11:43 Pulse 68 05/16/18 11:43 Resp 16 05/16/18 11:43 BP 140/78 05/16/18 11:43 Pulse Ox 96 05/16/18 08:50 Intake & Output 05/15/18 05/16/18 05/16/18 18:59 06:59 18:59 Intake Total 1656 20 240 Output Total 80 Balance 1656 -60 240 Weight 116.8 kg Intake: IV 20 Invasive Line 2 20 Intake, IV Titration 100 Amount Meropenem 1 gm In Sodium 100 Chloride 0.9% 100 ml @ 200 mls/hr IVPB Q8HR [facility] Rx#:[id number] Oral 1556 240 Output: Post Void Residual 80 Other: Voiding Method Urinal Diaper Incontinent # Voids 1 0 0 # Bowel Movements 1 - Exam General Appearance: Obese, Alert, cooperative, no distress, appears stated age. His is at the bedside. Neck HEENT: Supple, no lymphadenopathy, no thyroid enlargement, no carotid bruits. Lungs: Clear to auscultation without crackles or wheezes no rhonchi, no deformity. Chest Wall: Chest wall normal expansion with deep inspiration no tenderness and no deformity was found on exam, no costochondral pain or discomfort. Heart: Regular rate and rhythm, S1, S2 normal, no murmur, rub or gallop. Positive aortic valve click Back: Symmetric, no curvature, ROM normal, no CVA tenderness. Abdomen: Soft, non-tender, bowel sounds active all four quadrants, no masses, no organomegaly. Slight discomfort and lower abdominal region area Extremities: Extremities normal, atraumatic, no cyanosis, positive edema with slight dermatitis of the lower oximetry from the knee down.. Pulses: 2+ and symmetric. Skin: Skin color, texture, tugor normal, no rashes or lesions. Neurologic: Alert oriented x3 cranial nerves II through XII intact, no motor deficit, no abnormal balance or gait. - Labs CBC & Chem 7: 05/14/18 07:06 05/14/18 07:06 Labs: Abnormal Lab Results - Last 24 Hours (Table) 05/15/18 05/15/18 05/16/18 Range/Units 16:40 20:44 06:11 POC Glucose (mg/dL) 155 H 236 H 144 H (75-99) mg/dL 05/16/18 Range/Units 11:29 POC Glucose (mg/dL) 111 H (75-99) mg/dL Microbiology - Last 24 Hours (Table) 05/14/18 07:06 Blood Culture - Preliminary Blood No Growth after 48 hours 05/14/18 09:30 Urine Culture - Final Urine,Voided Assessment and Plan Plan: 1 sepsis and UTI. Consult with Dr. Block appreciated. Antibiotics changed to meropenem. Urine culture in progress. Consult with urology in place. 2 cardiomyopathy and chronic systolic heart failure. Acute coronary syndrome ruled out. Elevated troponins due to sepsis and tachycardia. Echocardiogram as noted above. Cardiology consult appreciated. 3 severe hypertension: Which can be related to sepsis at this point continue midodrine and continue fluid and hydration. 4 sinus tachycardia. Cardiology consult appreciated. 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 6 type 2 diabetes: Patient is on insulin and oral continue both continue Accu- Chek with sliding scales coverage. 7 chronic iron deficiency anemia: Continue iron supplement continue multivitamins as well no need for blood transfusion. 8 chronic kidney disease stage II, continue to eliminate any nephrotoxic agent continue to monitor his BUN/creatinine. 9 obstructive sleep apnea: Patient will use his CPAP on regular basis. 10 GI prophylaxis: Patient is on Pepcid currently. 11 hyperlipidemia: Continue statin. 12 DVT prophylaxis: Patient be on heparin 5000 units subcutaneous twice a day. CODE STATUS: Full code. Discharge plan: To be determined. PT and OT added. Impression and plan of care have been directed as dictated by the signing physician. Amrita Núñez nurse practitioner acting as scribe for signing physician.
[2018-05-16] MEDS: SACUBITRIL/VALSARTAN 24 MG-26 MG TABLET PO SCH ×2 (13:08→22:00)
--- NOTE | 2018-05-16 14:01 | P.PN ---
Subjective Progress Note Date: 05/16/18 This is an 82-year-old gentleman with past medical history significant for prostate cancer status post radiation therapy, coronary artery disease status post three-vessel CABG and aortic valve replacement, diabetes, hypertension, hyperlipidemia, who has had multiple admissions to the hospital since February, treated for ESBL E. coli UTI with E. coli sepsis and septic shock, acute hypoxic respiratory failure requiring BiPAP secondary to sepsis, pulmonary edema, secondary to systolic congestive heart failure, acute kidney injury. Patient was also significantly hypotensive requiring subsequent admission during that time. Patient overall had been feeling well, he actually drove a car on Tuesday which was the first time since all of this started in February and he's been able to drive. He drove over to [facility] overall he had a great morning. On arriving home he lay down to have a knot, upon wakening he was severely diaphoretic and clammy, running a temperature of 101-2102. For this reason he came to the emergency room for further evaluation and treatment. Patient did have an echocardiogram with Doppler study performed in February which revealed an ejection fraction of 25-30%, with akinesis noted in the mid anterior, apical anterior inferior and septal area. There was mild regurg of the bioprosthetic aortic valve noted. His echo just prior to that had been in the range of 40%. Chest x-ray on admission here did not reveal any acute process. His initial EKG on presentation here showed what appears to be a sinus tachycardia or SVT, subsequent EKG shows normal sinus rhythm with occasional PVC. Blood pressure on arrival here 106/60 with a heart rate of 1:30 , temperature 101, 87% on room air. His temperature did go up to 103. Blood pressure this morning 108/60 with a heart rate in the 70s, temperature 98.4. White blood cell count 15.0, hemoglobin 11.2, platelet count 185. Sodium 138, potassium 4.7, BUN 18 and creatinine 1.3. Troponins 0.15, 0.7, 1.7. Urinalysis shows significant UTI, influenza A and B-. Urine and blood cultures have been sent. Patient denies having any chest discomfort during any of this episode, overall he had been feeling well. No signs of dysuria or urinary frequency. No shortness of breath. 2018 Patient was seen and examined this morning, overall feeling significantly better. A repeat echocardiogram with Doppler study was performed which revealed an ejection fraction of 30-35%. Blood pressure 140/70 with a heart rate in the 60s, 98% on room air. Blood cultures did not reveal any growth for 48 hours. There was no repeat lab work performed today, we will order a CBC and lytes BUN and creatinine to be repeated today. We will also start the patient today on Entresto, monitoring his blood pressure closely. This was discussed in detail with the patient and his . Objective - Vital Signs Vital signs: Vital Signs Temp 97.6 F 05/16/18 11:43 Pulse 68 05/16/18 11:43 Resp 16 05/16/18 11:43 BP 140/78 05/16/18 11:43 Pulse Ox 96 05/16/18 08:50 Intake & Output 05/15/18 05/16/18 05/16/18 18:59 06:59 18:59 Intake Total 1656 20 240 Output Total 80 Balance 1656 -60 240 Weight 116.8 kg Intake: IV 20 Invasive Line 2 20 Intake, IV Titration 100 Amount Meropenem 1 gm In Sodium 100 Chloride 0.9% 100 ml @ 200 mls/hr IVPB Q8HR [facility] Rx#:[id number] Oral 1556 240 Output: Post Void Residual 80 Other: Voiding Method Urinal Diaper Incontinent # Voids 1 0 0 # Bowel Movements 1 - Exam PHYSICAL EXAMINATION: GENERAL: 82-year-old gentleman in no acute distress at the time of my examination HEENT: Head is atraumatic, normocephalic. Pupils equal, round. Sclera anicteric. Conjunctiva are clear. Mucous membranes of the mouth are moist. Neck is supple. There is no elevated jugular venous pressure. No carotid bruit is heard. HEART EXAMINATION: Heart S1 and S2 systolic murmur is heard. CHEST EXAMINATION: Lungs are clear to auscultation and precussion. No chest wall tenderness is noted on palpation or with deep breathing. ABDOMEN: Soft, nontender. Bowel sounds are heard. No organomegaly noted. EXTREMITIES: 2+ peripheral pulses with 1+ edema noted to the left lower extremity with a mild ear erythema, trace edema to the right lower extremity . NEUROLOGIC patient is awake, alert and oriented 3 . . - Labs CBC & Chem 7: 05/14/18 07:06 05/14/18 07:06 Labs: Abnormal Lab Results - Last 24 Hours (Table) 05/15/18 05/15/18 05/16/18 Range/Units 16:40 20:44 06:11 POC Glucose (mg/dL) 155 H 236 H 144 H (75-99) mg/dL 05/16/18 Range/Units 11:29 POC Glucose (mg/dL) 111 H (75-99) mg/dL Microbiology - Last 24 Hours (Table) 05/14/18 07:06 Blood Culture - Preliminary Blood No Growth after 48 hours 05/14/18 09:30 Urine Culture - Final Urine,Voided Assessment and Plan Plan: Assessment and plan 1 UTI, temperature up to 103 on arrival. Urine and blood cultures have been sent. Blood cultures remained negative. Patient now afebrile. 2. Ischemic cardiomyopathy with documented ejection fraction of 25-30% by echo performed in February 3. Recent hospitalizations for ESBL E. coli UTI with E. coli sepsis and septic shock. Patient is continued to have hypotensive blood pressure readings since discharge. Patient has been on Midodrine and Florinef . 4. 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 3. Diabetes mellitus type 2, insulin requiring. 4. Hypertension. 5. CAD status post CABG. 6. Status post aortic valve replacement with bioprosthetic aortic valve. 7. Hyperlipidemia. 8. Chronic kidney disease stage II. 9. Anemia of chronic disease. 10 abnormal troponin, likely secondary to sepsis and tachycardia. Patient denies having any chest discomfort. 11 sinus tachycardia vs SVT Plan Echocardiogram with Doppler study was repeated, revealed an ejection fraction of 30-35%. We will start the patient today on Entresto, monitoring blood pressure closely. Repeat CBC lytes BUN and creatinine. DNP note has been reviewed, I agree with a documented findings and plan of care. Patient was seen and examined.
[2018-05-16 15:01] LABS: Anisocytosis Slight; HCT 29.6 % (39.0-53.0); HGB 10.1 gm/dL (13.0-17.5); MCH 32.6 pg (25.0-35.0); MCHC 34.2 g/dL (31.0-37.0); MCV 95.2 fL (80.0-100.0); Platelet Count 164 k/uL (150-450); RBC 3.11 m/uL (4.30-5.90); RDW 16.8 % (11.5-15.5); WBC 10.6 k/uL (3.8-10.6)
[2018-05-16 15:10] LABS: Calcium 9.1 mg/dL (8.4-10.2)
[2018-05-16] MEDS: FERROUS SULFATE 325 MG TAB PO SCH (16:12)
[2018-05-16] MEDS: MULTIVITAMINS, THERA 1 EACH TAB PO SCH (16:12)
[2018-05-16 16:28] LABS: Glucose,Whole Blood 157 mg/dL (75-99)
[2018-05-16] MEDS: ALLOPURINOL 300 MG TAB PO SCH (17:41)
[2018-05-16 20:44] LABS: Glucose,Whole Blood 183 mg/dL (75-99)
[2018-05-16] MEDS: ATORVASTATIN 10 MG TAB PO SCH (22:00)
[2018-05-16] MEDS: metFORMIN 500 MG TAB PO SCH (22:00)
[2018-05-16] MEDS: GABAPENTIN 300 MG CAP PO SCH (22:01)
[2018-05-16] MEDS: LINAGLIPTIN 5 MG TABLET PO SCH (22:01)
--- NOTE | 2018-05-16 23:17 | PN ---
PROGRESS NOTE DATE OF SERVICE: 05/16/2018 REASON FOR FOLLOWUP: UTI/left lower extremity cellulitis. INTERVAL HISTORY: The patient is currently afebrile. The patient is breathing comfortably. Denies having any chest pain. No shortness of breath, no cough. No abdominal pain or any diarrhea. PHYSICAL EXAMINATION: Blood pressure 117/93 with a pulse of 69, temp is 99.9. He is 92% on room air. GENERAL DESCRIPTION: An elderly male lying in bed in no distress. RESPIRATORY SYSTEM: Unlabored breathing, clear to auscultation anteriorly. HEART: S1, S2. Regular rate and rhythm. ABDOMEN: Soft. No tenderness. LEFT LEG: Minimal swelling and open wound without any drainage. LABS: Hemoglobin is 10.1, white count 10.7, BUN of 30, creatinine 1.40. Blood and urine cultures have been negative so far. DIAGNOSTIC IMPRESSION AND PLAN: Patient admitted to the hospital with sepsis in concern for possible urinary source. He did have a positive UA but the culture has been negative. Also, left lower leg cellulitis. Cultures were negative for any resistant pathogen such as ESBL. Will discontinue Levaquin and start the patient on Rocephin 2 g daily. Then will be changed to oral antibiotic on discharge. Continue supportive care. MMODL / IJN: [id number] /
[2018-05-17 06:02] LABS: Glucose,Whole Blood 131 mg/dL (75-99)
[2018-05-17] MEDS: INSULIN ASPART (NovoLOG) 100 UNIT/ML VIAL SQ SCH ×4 (06:16→22:42)
[2018-05-17 06:51] LABS: Potassium 4.2 mmol/L (3.5-5.1)
[2018-05-17] MEDS: MIDODRINE 5 MG TAB PO SCH (08:47)
[2018-05-17] MEDS: HYDROCORTISONE SUCCINATE 100 MG/2 ML VIAL IV SCH (08:50)
[2018-05-17] MEDS: Mirabegron [Myrbetriq] 50 MG PO SCH (08:51)
[2018-05-17] MEDS: FAMOTIDINE 20 MG TAB PO SCH (08:51)
[2018-05-17] MEDS: DOCUSATE 100 MG CAP PO SCH ×2 (08:51→20:12)
[2018-05-17] MEDS: HEPARIN SODIUM,PORCINE 5,000 UNIT/ML 1 ML VIAL SQ SCH ×2 (08:51→20:11)
[2018-05-17] MEDS: SACUBITRIL/VALSARTAN 24 MG-26 MG TABLET PO SCH ×2 (08:51→20:15)
[2018-05-17] MEDS: DULoxetine HCL 30 MG CAPSULE.DR PO SCH (08:51)
[2018-05-17] MEDS: ASPIRIN 81 MG PO SCH (08:51)
[2018-05-17] MEDS: TORSEMIDE 20 MG TAB PO SCH (08:51)
[2018-05-17] MEDS: CALCIUM CARB-VIT D 500MG-200UN 1 EACH TAB PO SCH (08:51)
[2018-05-17 11:32] LABS: Glucose,Whole Blood 138 mg/dL (75-99)
--- NOTE | 2018-05-17 14:14 | P.PN ---
Subjective Progress Note Date: 05/17/18 82-year-old male one of my office patient with long-standing history of prostate cancer, diabetes, cardiomyopathy was diagnosed a few weeks ago, AAnjelica ji with RVR, and severe hypotension. Patient was in [place] for several weeks after his last hospitalization with sepsis and pulmonary edema when found to have cardiopathy and worsening symptom at the time. Patient ended up coming back to the hospital and stayed for few more days for severe hypotension and worsening symptoms from alpha festus medication for urinary retention which patient was taking off at the time and done well but continued to be on midodrine for hypotension. Patient was seen in the office recently for follow-up since he left [facility] also has been seen Dr. Buckley urology regular basis and has been doing micro- urine tests on regular basis. Patient presented to the emergency room at [facility] today because developed to have fever chills not feeling well with mild confusion worsening symptoms worsening burning irritation frequency and urgency at the time was seen his white blood cell was elevated urine test was positive his temperature was 101. Patient was started on Rocephin realizing his urine test from the last few visit was Proteus and Escherichia coli and responded both time to antibiotic like Rocephin. With his blood pressure being low his troponin was mildly elevated patient is on to have cardiopathy patient will be admitted to the intensive care unit will be seeing cardiology CK with troponin 3 will be done also will consult infectious disease and urology continue sepsis protocol except watch for any fluid overload might wish patient into failure. 05/15: Patient states that he slept well last night. He did use CPAP. Patient voices frustration about the recurrence of UTIs. He states he does have some incontinence in once no the cause. Dr. Self described to him in detail underlying problem which causes him to have frequent UTIs. We are adding in PT , OT. Dr. Block has seen him and recommended antibiotics the form of meropenem. We will add in site Cortef 100 mg every 8 hours for possible adrenal insufficiency from recent hospitalizations. Consult with urology is in place 05/16: Patient has been seen by Dr. Nash with recommendations to continue antibiotics per ID. Patient has an appointment next week with Dr. Buckley. Echocardiogram reveals EF 30-35%, severe global hypokinesia of the LV, trace aortic regurgitation, mild aortic stenosis, moderate mitral regurgitation, trace tricuspid regurgitation, borderline pulmonary hypertension. Patient has walked around the entire [place] and also getting up to the bathroom by himself. He did refuse PT this morning. Bladder scan showed only 80 ML's. He does state he feels somewhat better from steroids. Plan to change steroids to oral tomorrow. 05/17: The patient states his mood is much improved today. Blood pressure was high today and admitted drain was held by the nurse and will be discontinued today. He has done well on IV hydrocortisone which will be switched over to oral at 20 mg twice daily. Patient is on Entresto. Dr. gamboa his changed antibiotics to Rocephin. He has been afebrile, blood pressure 161/76, pulse ox 95% on room air, heart rate in the 60s. Patient is using CPAP at nighttime. Review of Systems CONSTITUTIONAL: No fever no chills. Complains of feeling tired EYES: No icterus sclerae, no conjunctivitis. EARS, NOSE, MOUTH, THROAT, and FACE: No sore throat, lymphadenopathy, carotid bruits or deformity. RESPIRATORY: No SOB cough or wheezes. CARDIOVASCULAR: No CP, Palpitation, PND, Orthopnea, or angina. GASTROINTESTINAL: No Abd pain, Nausea or vomiting, no Diarrhea or constipation, No GI Bleed, no distention or masses. GENITOURINARY: no kidney stones. Positive unit tract infection irritation discomfort and incontinence. INTEGUMENT/BREAST: Negative for any muscular injury with mild osteoarthritis.. HEMATOLOGIC/LYMPHATIC: Negative for bleed or purpura. MUSCULOSKELTAL: Negative for Myalgia or arthralgia. NEURLOGICAL: No LOC, Sz or syncope, blurred vision dizziness or abnormality.. BEHAVIORAL/PSYCH: Negative. ENDOCRINE: Negative. Objective - Vital Signs Vital signs: Vital Signs Temp 97.5 F L 05/17/18 11:34 Pulse 66 05/17/18 11:34 Resp 20 05/17/18 11:34 BP 161/76 05/17/18 11:34 Pulse Ox 95 05/17/18 11:34 Intake & Output 05/16/18 05/17/18 05/17/18 18:59 06:59 18:59 Intake Total 942 480 480 Output Total 800 Balance 942 -320 480 Weight 115.5 kg Intake: Oral 942 480 480 Output: Urine 800 Other: Voiding Method Diaper Incontinent # Voids 2 2 # Bowel Movements 1 - Exam General Appearance: Obese, Alert, cooperative, no distress, appears stated age. His is at the bedside. He appears to be comfortable. Neck HEENT: Supple, no lymphadenopathy, no thyroid enlargement, no carotid bruits. Lungs: Clear to auscultation without crackles or wheezes no rhonchi, no deformity. Chest Wall: Chest wall normal expansion with deep inspiration no tenderness and no deformity was found on exam, no costochondral pain or discomfort. Heart: Regular rate and rhythm, S1, S2 normal, no murmur, rub or gallop. Positive aortic valve click Back: Symmetric, no curvature, ROM normal, no CVA tenderness. Abdomen: Soft, non-tender, bowel sounds active all four quadrants, no masses, no organomegaly. Slight discomfort and lower abdominal region area Extremities: Extremities normal, atraumatic, no cyanosis, positive edema with slight dermatitis of the lower oximetry from the knee down.. Pulses: 2+ and symmetric. Skin: Skin color, texture, tugor normal, no rashes or lesions. Neurologic: Alert oriented x3 cranial nerves II through XII intact, no motor deficit, no abnormal balance or gait. - Labs CBC & Chem 7: 05/16/18 14:45 05/17/18 05:48 Labs: Abnormal Lab Results - Last 24 Hours (Table) 05/16/18 05/16/18 05/16/18 Range/Units 14:45 14:45 16:26 RBC 3.11 L (4.30-5.90) m/uL Hgb 10.1 L (13.0-17.5) gm/dL Hct 29.6 L (39.0-53.0) % RDW 16.8 H (11.5-15.5) % BUN 30 H (9-20) mg/dL Creatinine 1.40 H (0.66-1.25) mg/dL Glucose 176 H (74-99) mg/dL POC Glucose (mg/dL) 157 H (75-99) mg/dL 05/16/18 05/17/18 05/17/18 Range/Units 20:43 05:48 06:01 RBC (4.30-5.90) m/uL Hgb (13.0-17.5) gm/dL Hct (39.0-53.0) % RDW (11.5-15.5) % BUN 30 H (9-20) mg/dL Creatinine (0.66-1.25) mg/dL Glucose 139 H (74-99) mg/dL POC Glucose (mg/dL) 183 H 131 H (75-99) mg/dL 05/17/18 Range/Units 11:30 RBC (4.30-5.90) m/uL Hgb (13.0-17.5) gm/dL Hct (39.0-53.0) % RDW (11.5-15.5) % BUN (9-20) mg/dL Creatinine (0.66-1.25) mg/dL Glucose (74-99) mg/dL POC Glucose (mg/dL) 138 H (75-99) mg/dL Microbiology - Last 24 Hours (Table) 05/14/18 07:06 Blood Culture - Preliminary Blood No Growth after 72 hours Assessment and Plan Plan: 1 sepsis and UTI. Consult with Dr. Block appreciated. Antibiotics changed to Rocephin. Urine culture finalized with skin or genital adrian. Consult with urology appreciated. Patient to follow-up with Dr. Barrow next week. 2 cardiomyopathy and chronic systolic heart failure. Acute coronary syndrome ruled out. Elevated troponins due to sepsis and tachycardia. Echocardiogram as noted above. Cardiology consult appreciated. 3 severe hypertension: Which can be related to sepsis at this point continue midodrine and continue fluid and hydration. 4 sinus tachycardia. Cardiology consult appreciated. 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 6 type 2 diabetes: Patient is on insulin and oral continue both continue Accu- Chek with sliding scales coverage. 7 chronic iron deficiency anemia: Continue iron supplement continue multivitamins as well no need for blood transfusion. 8 chronic kidney disease stage II, continue to eliminate any nephrotoxic agent continue to monitor his BUN/creatinine. 9 obstructive sleep apnea: Patient will use his CPAP on regular basis. 10 GI prophylaxis: Patient is on Pepcid currently. 11 hyperlipidemia: Continue statin. 12 DVT prophylaxis: Patient be on heparin 5000 units subcutaneous twice a day. CODE STATUS: Full code. Discharge plan: Home tomorrow Impression and plan of care have been directed as dictated by the signing physician. Amrita Convery nurse practitioner acting as scribe for signing physician.
[2018-05-17 15:11] LABS: Hemoglobin A1C 5.8 % (4.0-6.0)
--- NOTE | 2018-05-17 15:14 | P.PN ---
Subjective Progress Note Date: 05/17/18 This is an 82-year-old gentleman with past medical history significant for prostate cancer status post radiation therapy, coronary artery disease status post three-vessel CABG and aortic valve replacement, diabetes, hypertension, hyperlipidemia, who has had multiple admissions to the hospital since February, treated for ESBL E. coli UTI with E. coli sepsis and septic shock, acute hypoxic respiratory failure requiring BiPAP secondary to sepsis, pulmonary edema, secondary to systolic congestive heart failure, acute kidney injury. Patient was also significantly hypotensive requiring subsequent admission during that time. Patient overall had been feeling well, he actually drove a car on Tuesday which was the first time since all of this started in February and he's been able to drive. He drove over to [facility] overall he had a great morning. On arriving home he lay down to have a knot, upon wakening he was severely diaphoretic and clammy, running a temperature of 101-2102. For this reason he came to the emergency room for further evaluation and treatment. Patient did have an echocardiogram with Doppler study performed in February which revealed an ejection fraction of 25-30%, with akinesis noted in the mid anterior, apical anterior inferior and septal area. There was mild regurg of the bioprosthetic aortic valve noted. His echo just prior to that had been in the range of 40%. Chest x-ray on admission here did not reveal any acute process. His initial EKG on presentation here showed what appears to be a sinus tachycardia or SVT, subsequent EKG shows normal sinus rhythm with occasional PVC. Blood pressure on arrival here 106/60 with a heart rate of 1:30 , temperature 101, 87% on room air. His temperature did go up to 103. Blood pressure this morning 108/60 with a heart rate in the 70s, temperature 98.4. White blood cell count 15.0, hemoglobin 11.2, platelet count 185. Sodium 138, potassium 4.7, BUN 18 and creatinine 1.3. Troponins 0.15, 0.7, 1.7. Urinalysis shows significant UTI, influenza A and B-. Urine and blood cultures have been sent. Patient denies having any chest discomfort during any of this episode, overall he had been feeling well. No signs of dysuria or urinary frequency. No shortness of breath. 2018 Patient was seen and examined this morning, overall feeling significantly better. A repeat echocardiogram with Doppler study was performed which revealed an ejection fraction of 30-35%. Blood pressure 140/70 with a heart rate in the 60s, 98% on room air. Blood cultures did not reveal any growth for 48 hours. There was no repeat lab work performed today, we will order a CBC and lytes BUN and creatinine to be repeated today. We will also start the patient today on Entresto, monitoring his blood pressure closely. This was discussed in detail with the patient and his . 05/17/2018 Patient seen and examined this morning, midodrine has been discontinued because of elevated blood pressure. Tolerating Entresto well. Blood pressure 154/72, heart rate in the 60s, 97% on room air. Sodium 141, potassium 4.2, BUN 30, creatinine 1.2. Objective - Vital Signs Vital signs: Vital Signs Temp 97.5 F L 05/17/18 11:34 Pulse 66 05/17/18 11:34 Resp 20 05/17/18 11:34 BP 161/76 05/17/18 11:34 Pulse Ox 95 05/17/18 11:34 Intake & Output 05/16/18 05/17/18 05/17/18 18:59 06:59 18:59 Intake Total 942 480 702 Output Total 800 Balance 942 -320 702 Weight 115.5 kg Intake: Oral 942 480 702 Output: Urine 800 Other: Voiding Method Diaper Incontinent # Voids 2 2 # Bowel Movements 1 - Exam PHYSICAL EXAMINATION: GENERAL: 82-year-old gentleman in no acute distress at the time of my examination HEENT: Head is atraumatic, normocephalic. Pupils equal, round. Sclera anicteric. Conjunctiva are clear. Mucous membranes of the mouth are moist. Neck is supple. There is no elevated jugular venous pressure. No carotid bruit is heard. HEART EXAMINATION: Heart S1 and S2 systolic murmur is heard. CHEST EXAMINATION: Lungs are clear to auscultation and precussion. No chest wall tenderness is noted on palpation or with deep breathing. ABDOMEN: Soft, nontender. Bowel sounds are heard. No organomegaly noted. EXTREMITIES: 2+ peripheral pulses with 1+ edema noted to the left lower extremity with a mild ear erythema, trace edema to the right lower extremity . NEUROLOGIC patient is awake, alert and oriented 3 . . - Labs CBC & Chem 7: 05/16/18 14:45 05/17/18 05:48 Labs: Abnormal Lab Results - Last 24 Hours (Table) 05/16/18 05/16/18 05/17/18 Range/Units 16:26 20:43 05:48 BUN 30 H (9-20) mg/dL Glucose 139 H (74-99) mg/dL POC Glucose (mg/dL) 157 H 183 H (75-99) mg/dL 05/17/18 05/17/18 Range/Units 06:01 11:30 BUN (9-20) mg/dL Glucose (74-99) mg/dL POC Glucose (mg/dL) 131 H 138 H (75-99) mg/dL Microbiology - Last 24 Hours (Table) 05/14/18 07:06 Blood Culture - Preliminary Blood No Growth after 72 hours Assessment and Plan Plan: Assessment and plan 1 UTI, temperature up to 103 on arrival. Urine and blood cultures have been sent. Blood cultures remained negative. Patient now afebrile. 2. Ischemic cardiomyopathy with documented ejection fraction of 25-30% by echo performed in February 3. Recent hospitalizations for ESBL E. coli UTI with E. coli sepsis and septic shock. Patient is continued to have hypotensive blood pressure readings since discharge. Patient has been on Midodrine and Florinef . 4. 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 3. Diabetes mellitus type 2, insulin requiring. 4. Hypertension. 5. CAD status post CABG. 6. Status post aortic valve replacement with bioprosthetic aortic valve. 7. Hyperlipidemia. 8. Chronic kidney disease stage II. 9. Anemia of chronic disease. 10 abnormal troponin, likely secondary to sepsis and tachycardia. Patient denies having any chest discomfort. 11 sinus tachycardia vs SVT Plan Continue Entresto. Midodrine discontinued today by Dr. Leroy. Plan for possible discharge home in 24 hours if stable. DNP note has been reviewed, I agree with a documented findings and plan of care. Patient was seen and examined.
[2018-05-17 16:44] LABS: Glucose,Whole Blood 154 mg/dL (75-99)
--- NOTE | 2018-05-17 16:45 | PN ---
PROGRESS NOTE DATE OF SERVICE: 05/17/2018 REASON FOR FOLLOWUP: Fever, source UTI/left lower extremity cellulitis. INTERVAL HISTORY: The patient is afebrile. The patient has been breathing comfortably. Denies having any chest pain, shortness of breath or cough. No abdominal pain or any diarrhea. PHYSICAL EXAMINATION: Blood pressure is 161/76 with a pulse of 66, temperature 97.5. He is 95% on room air. General description is an elderly male lying in bed in no distress. RESPIRATORY SYSTEM: Unlabored breathing. Clear to auscultation anteriorly. HEART: S1, S2. Regular rate and rhythm. ABDOMEN: Soft. No tenderness. Left leg swelling and redness have improved. LABS: The patient's blood and urine cultures have been negative. White count normal. Creatinine 1.23. DIAGNOSTIC IMPRESSION AND PLAN: Patient admitted to hospital with fever with initial concern for a urinary tract infection, as the patient did have a history of recurrent urinary tract infection and did have a positive urinalysis. However, urine culture has been negative. The patient also was complaining of left lower extremity cellulitis; that could be a contributing factor to his fever. The patient is doing well on the Rocephin. We will be planning on switching therapy to oral Ceftin 500 mg twice a day for about a week with close outpatient followup. MMODL / IJN: [id number] /
[2018-05-17] MEDS: FERROUS SULFATE 325 MG TAB PO SCH (18:11)
[2018-05-17] MEDS: MULTIVITAMINS, THERA 1 EACH TAB PO SCH (18:11)
[2018-05-17] MEDS: ATORVASTATIN 10 MG TAB PO SCH (20:11)
[2018-05-17] MEDS: LINAGLIPTIN 5 MG TABLET PO SCH (20:12)
[2018-05-17] MEDS: metFORMIN 500 MG TAB PO SCH (20:12)
[2018-05-17] MEDS: HYDROCORTISONE 20 MG TAB PO SCH (20:12)
[2018-05-17] MEDS: GABAPENTIN 300 MG CAP PO SCH (20:12)
[2018-05-17 20:25] LABS: Glucose,Whole Blood 158 mg/dL (75-99)
[2018-05-18 07:24] LABS: Glucose,Whole Blood 102 mg/dL (75-99)
[2018-05-18] MEDS: INSULIN ASPART (NovoLOG) 100 UNIT/ML VIAL SQ SCH (08:25)
[2018-05-18] MEDS: Mirabegron [Myrbetriq] 50 MG PO SCH (08:26)
[2018-05-18 08:30] VITALS: BP 145/76; PULSE 66; RESP 16; TEMP 97.5
[2018-05-18] MEDS: FAMOTIDINE 20 MG TAB PO SCH (08:31)
[2018-05-18] MEDS: DOCUSATE 100 MG CAP PO SCH (08:31)
[2018-05-18] MEDS: ASPIRIN 81 MG PO SCH (08:31)
[2018-05-18] MEDS: HEPARIN SODIUM,PORCINE 5,000 UNIT/ML 1 ML VIAL SQ SCH (08:31)
[2018-05-18] MEDS: HYDROCORTISONE 20 MG TAB PO SCH (08:31)
[2018-05-18] MEDS: CALCIUM CARB-VIT D 500MG-200UN 1 EACH TAB PO SCH (08:31)
[2018-05-18] MEDS: SACUBITRIL/VALSARTAN 24 MG-26 MG TABLET PO SCH (08:32)
[2018-05-18] MEDS: TORSEMIDE 20 MG TAB PO SCH (08:32)
--- NOTE | 2018-05-18 15:10 | PN ---
PROGRESS NOTE DATE OF SERVICE: 05/18/2018 REASON FOR FOLLOWUP: Fever, possible left lower extremity cellulitis. INTERVAL HISTORY: The patient is currently afebrile. He was seen earlier this afternoon. The patient denies having any chest pain, shortness of breath or cough. No abdominal pain. No urinary symptoms. Left leg swelling and redness has improved. PHYSICAL EXAMINATION: Blood pressure 145/76 with a pulse of 66, temperature 97.5. He is 99% on room air. General description is an elderly male up in the chair in no distress. RESPIRATORY SYSTEM: Unlabored breathing, clear to auscultation anteriorly. HEART: S1, S2. Regular rate and rhythm. ABDOMEN: Soft, no tenderness. Left leg swelling and redness as before. LABS: No new labs have been obtained today. DIAGNOSTIC IMPRESSION AND PLAN: Patient went to the hospital with fever, initial concern for UTI as he did have a positive UA with urine culture subsequently came back negative. Blood culture has been negative. The patient did have a component of left lower extremity cellulitis. More likely responsible for his fever. He did well on Rocephin. Antibiotic has been switched to Ceftin. Will continue for about a week with close outpatient followup. Continue supportive care. MMODL / IJN: [id number] /
--- NOTE | 2018-05-18 15:47 | P.DS ---
Providers Date of admission: 05/14/18 10:02 Expected date of discharge: 05/18/18 Attending physician: Alfredo Self Consults: 05/14/18 09:59 Consult Physician Stat Consulting Provider: [facility] Consult Reason/Comments: Elevated troponin Do you want consulting provider notified?: Yes Consult Physician Stat Consulting Provider: Charli Block Consult Reason/Comments: Urinary tract infection, sepsis Do you want consulting provider notified?: Yes 05/15/18 18:35 Consult Physician Routine Consulting Provider: Ramo Buckley Consult Reason/Comments: UTI, known to patient Do you want consulting provider notified?: Yes Primary care physician: [facility] Course: 82-year-old male one of my office patient with long-standing history of prostate cancer, diabetes, cardiomyopathy was diagnosed a few weeks ago, A. fib with RVR, and severe hypotension. Patient was in [facility] for several weeks after his last hospitalization with sepsis and pulmonary edema when found to have cardiopathy and worsening symptom at the time. Patient ended up coming back to the hospital and stayed for few more days for severe hypotension and worsening symptoms from alpha festus medication for urinary retention which patient was taking off at the time and done well but continued to be on midodrine for hypotension. Patient was seen in the office recently for follow-up since he left [facility] also has been seen Dr. Buckley urology regular basis and has been doing micro- urine tests on regular basis. Patient presented to the emergency room at [facility] today because developed to have fever chills not feeling well with mild confusion worsening symptoms worsening burning irritation frequency and urgency at the time was seen his white blood cell was elevated urine test was positive his temperature was 101. Patient was started on Rocephin realizing his urine test from the last few visit was Proteus and Escherichia coli and responded both time to antibiotic like Rocephin. With his blood pressure being low his troponin was mildly elevated patient is on to have cardiopathy patient will be admitted to the intensive care unit will be seeing cardiology CK with troponin 3 will be done also will consult infectious disease and urology continue sepsis protocol except watch for any fluid overload might wish patient into failure. 05/15: Patient states that he slept well last night. He did use CPAP. Patient voices frustration about the recurrence of UTIs. He states he does have some incontinence in once no the cause. Dr. Self described to him in detail underlying problem which causes him to have frequent UTIs. We are adding in PT , OT. Dr. Block has seen him and recommended antibiotics the form of meropenem. We will add in site Cortef 100 mg every 8 hours for possible adrenal insufficiency from recent hospitalizations. Consult with urology is in place 05/16: Patient has been seen by Dr. Nash with recommendations to continue antibiotics per ID. Patient has an appointment next week with Dr. Buckley. Echocardiogram reveals EF 30-35%, severe global hypokinesia of the LV, trace aortic regurgitation, mild aortic stenosis, moderate mitral regurgitation, trace tricuspid regurgitation, borderline pulmonary hypertension. Patient has walked around the entire [place] and also getting up to the bathroom by himself. He did refuse PT this morning. Bladder scan showed only 80 ML's. He does state he feels somewhat better from steroids. Plan to change steroids to oral tomorrow. 05/17: The patient states his mood is much improved today. Blood pressure was high today and admitted drain was held by the nurse and will be discontinued today. He has done well on IV hydrocortisone which will be switched over to oral at 20 mg twice daily. Patient is on Entresto. Dr. gamboa his changed antibiotics to Rocephin. He has been afebrile, blood pressure 161/76, pulse ox 95% on room air, heart rate in the 60s. Patient is using CPAP at nighttime. 05/18: Patient states he noticed something on his back and took a shower which this did not resolve. He was noted to have a rash on his back which seems to be a contact dermatitis. Dr. Sabillon is recommended continuing Ceftin outpatient for 1 week. Patient will be decreased dose of Cortef at home with plan to gradually taper. Admitted drain will be discontinued and less patient needs it if blood pressures less than 110. Patient will be discharged home today in stable condition. Discharge diagnoses: 1 sepsis and UTI. 2 cardiomyopathy and chronic systolic heart failure. Acute coronary syndrome ruled out. 3 severe hypertension 4 sinus tachycardia. 5 history of prostate cancer post radiation with complication related to radiation cystitis 6 type 2 diabetes 7 chronic iron deficiency anemia of chronic disease 8 chronic kidney disease stage II 9 obstructive sleep apnea 10 hyperlipidemia: Continue statin. Discharge plan: Home Impression and plan of care have been directed as dictated by the signing physician. Amrita Núñez nurse practitioner acting as scribe for signing physician. Patient Condition at Discharge: Good Plan - Discharge Summary Discharge Rx Participant: No New Discharge Prescriptions: New Hydrocortisone [Cortef] 10 mg PO BID #60 tablet Sacubitril/Valsartan [Entresto 24 mg-26 mg Tablet] 1 each PO BID #60 tablet Cefuroxime Axetil [Ceftin] 500 mg PO BID #14 tab Continue Glucosam/Donnie-Msm1/C/Pardeep/Bosw [Glucosamine-Chondroitin Tablet] 1 tab PO HS Multivitamins, Thera [Multivitamin (formulary)] 1 tab PO DAILY@1700 Docusate [Colace] 100 mg PO BID Allopurinol [Zyloprim] 300 mg PO Q48H Simvastatin [Zocor] 20 mg PO HS sitaGLIPtin PHOS/metFORMIN HCL [Janumet 50-500 mg Tablet] 1 tab PO HS Mirabegron [Myrbetriq] 50 mg PO DAILY Turmeric Root Extract [Turmeric] 500 mg PO DAILY@1700 Calcium Carbonate/Vitamin D3 [Calcium 600-Vit D3 200 Tablet] 1 tab PO DAILY Ferrous Sulfate [Iron (65 MG Elemental)] 325 mg PO DAILY@1700 Gabapentin [Neurontin] 300 mg PO HS #0 Torsemide [Demadex] 20 mg PO DAILY #30 tab Famotidine [Pepcid] 20 mg PO BID Aspirin [Hale Aspirin EC] 81 mg PO DAILY Discontinued Midodrine [ProAmatine] 5 mg PO BID Discharge Medication List Allopurinol [Zyloprim] 300 mg PO Q48H 03/01/17 [History] Docusate [Colace] 100 mg PO BID 03/01/17 [History] Glucosam/Donnie-Msm1/C/Pardeep/Bosw [Glucosamine-Chondroitin Tablet] 1 tab PO HS 03/06 [History] Multivitamins, Thera [Multivitamin (formulary)] 1 tab PO DAILY@1700 03/01/17 [ History] Simvastatin [Zocor] 20 mg PO HS 03/01/17 [History] Mirabegron [Myrbetriq] 50 mg PO DAILY 06/27/17 [History] sitaGLIPtin PHOS/metFORMIN HCL [Janumet 50-500 mg Tablet] 1 tab PO HS 06/27/17 [ History] Calcium Carbonate/Vitamin D3 [Calcium 600-Vit D3 200 Tablet] 1 tab PO DAILY [History] Turmeric Root Extract [Turmeric] 500 mg PO DAILY@1700 10/11/17 [History] Ferrous Sulfate [Iron (65 MG Elemental)] 325 mg PO DAILY@1700 02/25/18 [History] Gabapentin [Neurontin] 300 mg PO HS #0 03/06/18 [Rx] Torsemide [Demadex] 20 mg PO DAILY #30 tab 03/27/18 [Rx] Aspirin [Hale Aspirin EC] 81 mg PO DAILY 05/14/18 [History] Famotidine [Pepcid] 20 mg PO BID 05/14/18 [History] Cefuroxime Axetil [Ceftin] 500 mg PO BID #14 tab 05/18/18 [Rx] Hydrocortisone [Cortef] 10 mg PO BID #60 tablet 05/18/18 [Rx] Sacubitril/Valsartan [Entresto 24 mg-26 mg Tablet] 1 each PO BID #60 tablet [Rx] Follow up Appointment(s)/Referral(s): Logan Corrigan MD [STAFF PHYSICIAN] - 06/13/18 8:45 am Ramo Buckley MD [STAFF PHYSICIAN] - 1 Week (has appointment on Tuesday) Alfredo Self MD [Primary Care Provider] - 05/23/18 2:00 pm (Tuesday with [facility]) Charli Block MD [STAFF PHYSICIAN] - 05/29/18 10:45 am Patient Instructions/Handouts: Urinary Tract Infection in Men (DC) Activity/Diet/Wound Care/Special Instructions: May take midodrine if SPB <110. 30 day free coupon applied to pts Entresto at [facility]
== END 2018-05-18 12:30 | disposition home or self-care (01) | DRG 872 ==
LOC: EC 06:48 → 3SCARD 10:02 → 4SSUR 05-17 23:16
PROVIDERS: ADMIT Internal Medicine Geriatric Medicine; ATTEND Internal Medicine Geriatric Medicine
DX: A41.9 Sepsis, unspecified organism (principal); N39.0 Urinary tract infection, site not specified; I50.22 Chronic systolic (congestive) heart failure; I13.0 Hypertensive heart and chronic kidney disease with heart failure and stage 1 through stage 4 chronic kidney disease, or unspecified chronic kidney disease; I47.1 Supraventricular tachycardia; L03.116 Cellulitis of left lower limb; R32 Unspecified urinary incontinence; G47.33 Obstructive sleep apnea (adult) (pediatric); E78.5 Hyperlipidemia, unspecified; L25.9 Unspecified contact dermatitis, unspecified cause; I08.3 Combined rheumatic disorders of mitral, aortic and tricuspid valves; D63.1 Anemia in chronic kidney disease; N18.2 Chronic kidney disease, stage 2 (mild); E11.22 Type 2 diabetes mellitus with diabetic chronic kidney disease; I25.10 Atherosclerotic heart disease of native coronary artery without angina pectoris; I25.5 Ischemic cardiomyopathy; I48.91 Unspecified atrial fibrillation; I49.3 Ventricular premature depolarization; N18.3 Chronic kidney disease, stage 3 (moderate); Z87.440 Personal history of urinary (tract) infections; Z92.3 Personal history of irradiation; Z86.19 Personal history of other infectious and parasitic diseases; Z87.891 Personal history of nicotine dependence; Z82.49 Family history of ischemic heart disease and other diseases of the circulatory system; Z79.82 Long term (current) use of aspirin; Z79.899 Other long term (current) drug therapy; Z85.46 Personal history of malignant neoplasm of prostate; Z79.4 Long term (current) use of insulin; Z83.3 Family history of diabetes mellitus; Z95.1 Presence of aortocoronary bypass graft; Z95.3 Presence of xenogenic heart valve; Z95.5 Presence of coronary angioplasty implant and graft
CPT/HCPCS: 36415; 71046; 80048; 80053; 81001; 83036; 83605; 84484; 85025; 85027; 85610; 85730; 87040; 87086; 87502; 93005; 93306; 94760; 96361; 96365; 99291

== ENCOUNTER 2019-12-03 16:40 | Emergency (ER) | payer MEDICARE ==
[2019-12-03 16:56] VITALS: RESP 18; TEMP 98.6
--- NOTE | 2019-12-03 17:36 | ED ---
General Adult HPI - General Chief complaint: Urogenital Stated complaint: Urinary Issues Time Seen by Provider: 12/03/19 16:58 Source: patient Mode of arrival: ambulatory Limitations: no limitations - History of Present Illness Initial comments: Dictation was produced using [employer] dictation software. please excuse any grammatical, word or spelling errors. This patient was cared for during a federal and state declared state of emergency secondary to Covid 19 Chief Complaint: 83-year-old male presents to the emergency department per instruction by urologist for anuria workup History of Present Illness: 83-year-old male he is brought in by his . He was just at his urologists office for urinary issues. Over the last couple days patient noted that he has really been making urine. He has history of prostate cancer. Initially he thought that perhaps his symptoms are secondary to urinary retention. He typically always urinates when he has a bowel movement in the morning however he did this morning. Called his urologist where he was evaluated. He had a Ortiz catheter placed however there was not much urine that was drained. He was instead told to come to the emergency department for evaluation The ROS documented in this emergency department record has been reviewed and confirmed by me. Those systems with pertinent positive or negative responses have been documented in the HPI. All other systems are other negative and/or noncontributory. PHYSICAL EXAM: General Impression: Alert and oriented x3, not in acute distress, Ortiz catheter in place with yellow transparent urine and leg bag HEENT: Normocephalic atraumatic, extra-ocular movements intact, pupils equal and reactive to light bilaterally, mucous membranes moist. Cardiovascular: Heart regular rate and rhythm Chest: Able to complete full sentences, no retractions, no tachypnea Abdomen: abdomen soft, non-tender, non-distended, no organomegaly Musculoskeletal: Pulses present and equal in all extremities, no peripheral edema Motor: no focal deficits noted Neurological: CN II-XII grossly intact, no focal motor or sensory deficits noted Skin: Intact with no visualized rashes Psych: Normal affect and mood ED course: 83-year-old male presents today for anuria signs upon arrival are within acceptable limits. Patient's well-appearing at bedside. He does appear to have some urine in his Ortiz catheter reservoir. Laboratory evaluation obtained. CBC and [place]. Metabolic panel is unremarkable. There is slight elevation of renal markers. Creatinine is 1.88. This above patient's baseline. His likely secondary to mild dehydration. Jairo patiño given some fluids. He otherwise is well-appearing. He is told to follow- up with his primary care physician for outpatient monitoring of his kidney levels. - Related Data Home Medications Medication Instructions Recorded Confirmed Docusate [Colace] 100 mg PO BID 03/01/17 05/14/18 Glucosam/Donnie-Msm1/C/Pardeep/Bosw 1 tab PO HS 03/01/17 05/14/18 [Glucosamine-Chondroitin Tablet] Multivitamins, Thera [Multivitamin 1 tab PO DAILY@1700 03/01/17 05/14/18 (formulary)] Simvastatin [Zocor] 20 mg PO HS 03/01/17 05/14/18 allopurinoL [Zyloprim] 300 mg PO Q48H 03/01/17 05/14/18 Mirabegron [Myrbetriq] 50 mg PO DAILY 06/27/17 05/14/18 sitaGLIPtin PHOS/metFORMIN HCL 1 tab PO HS 06/27/17 05/14/18 [Janumet 50-500 mg Tablet] Calcium Carbonate/Vitamin D3 1 tab PO DAILY 10/11/17 05/14/18 [Calcium 600-Vit D3 200 Tablet] Turmeric Root Extract [Turmeric] 500 mg PO DAILY@1700 10/11/17 05/14/18 Ferrous Sulfate [Iron (65 MG 325 mg PO DAILY@1700 02/25/18 05/14/18 Elemental)] Aspirin [[place] Aspirin EC] 81 mg PO DAILY 05/14/18 05/14/18 Famotidine [Pepcid] 20 mg PO BID 05/14/18 05/14/18 Previous Rx's Medication Instructions Recorded Gabapentin [Neurontin] 300 mg PO HS #0 03/06/18 Torsemide [Demadex] 20 mg PO DAILY #30 tab 03/27/18 Cefuroxime Axetil [Ceftin] 500 mg PO BID #14 tab 05/18/18 Hydrocortisone [Cortef] 10 mg PO BID #60 tablet 05/18/18 Sacubitril/Valsartan [Entresto 24 1 each PO BID #60 tablet 05/18/18 mg-26 mg Tablet] Allergies Allergy/AdvReac Type Severity Reaction Status Date / Time No Known Allergies Allergy Verified 12/03/19 16:57 Review of Systems ROS Statement: Those systems with pertinent positive or pertinent negative responses have been documented in the HPI. ROS Other: All systems not noted in ROS Statement are negative. 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 Anemia with blood transfusions.02/25/2018 WAS IN [facility] FOR SEPSIS UTI ECOLI INFECTION. HAS A MEDLINE PORT LEFT UPPER ARM FROM [facility] 03/22/2018 History of Any Multi-Drug Resistant Organisms: ESBL Date of last positivie culture/infection: 02/25/18 MDRO Source:: urine, blood esbl Past Surgical History: Cardiac Valve Replacement, Coronary Bypass/CABG, Heart Catheterization Additional Past Surgical History / Comment(s): 03/02/17 cystoscopy/evacuation clots and fulguration bladder, 01/20/12 CABG-3 vessel with aortic valve. Past Anesthesia/Blood Transfusion Reactions: No Reported Reaction Past Psychological History: No Psychological Hx Reported Smoking Status: Never smoker Past Alcohol Use History: Occasional Past Drug Use History: None Reported - Past Family History Mother Family Medical History: Myocardial Infarction ([place]) Additional Family Medical History / Comment(s): Mother at age 67 from a myocardial infarction. Father Family Medical History: Diabetes Mellitus, Myocardial Infarction ([place]) Additional Family Medical History / Comment(s): Father from complications from diabetes mellitus that was uncontrolled with frequent episodes of coma. He also has history of myocardial infarction. The patient has no children and no siblings. General Exam Limitations: no limitations Course Vital Signs 12/03/19 16:54 Temperature 98.6 F Pulse Rate 73 Respiratory 18 Rate Blood Pressure 181/72 O2 Sat by Pulse 97 Oximetry Medical Decision Making - Lab Data Result diagrams: 12/03/19 17:25 12/03/19 17:25 Lab Results 09/14/20 09/14/20 Range/Units 17:25 17:25 WBC 9.9 (3.8-10.6) k/uL RBC 3.56 L (4.30-5.90) m/uL Hgb 10.7 L (13.0-17.5) gm/dL Hct 33.5 L (39.0-53.0) % MCV 94.0 (80.0-100.0) fL MCH 30.2 (25.0-35.0) pg MCHC 32.1 (31.0-37.0) g/dL RDW 15.5 (11.5-15.5) % Plt Count 155 (150-450) k/uL Neutrophils % 84 % Lymphocytes % 7 % Monocytes % 6 % Eosinophils % 2 % Basophils % 0 % Neutrophils # 8.4 H (1.3-7.7) k/uL Lymphocytes # 0.7 L (1.0-4.8) k/uL Monocytes # 0.6 (0-1.0) k/uL Eosinophils # 0.2 (0-0.7) k/uL Basophils # 0.0 (0-0.2) k/uL Sodium 136 L (137-145) mmol/L Potassium 4.7 (3.5-5.1) mmol/L Chloride 99 (98-107) mmol/L Carbon Dioxide 30 (22-30) mmol/L Anion Gap 7 mmol/L BUN 33 H (9-20) mg/dL Creatinine 1.88 H (0.66-1.25) mg/dL Est GFR (CKD-EPI)AfAm 38 (>60 ml/min/1.73 sqM) Est GFR (CKD-EPI)NonAf 33 (>60 ml/min/1.73 sqM) Glucose 137 H (74-99) mg/dL Calcium 9.2 (8.4-10.2) mg/dL Total Bilirubin 0.4 (0.2-1.3) mg/dL AST 29 (17-59) U/L ALT 20 (4-49) U/L Alkaline Phosphatase 68 (38-126) U/L Total Protein 7.4 (6.3-8.2) g/dL Albumin 4.3 (3.5-5.0) g/dL Disposition Clinical Impression: Dehydration Disposition: HOME SELF-CARE Condition: Good Instructions (If sedation given, give patient instructions): Dehydration (ED) Is patient prescribed a controlled substance at d/c from ED?: No Referrals: Alfredo eSlf MD [Primary Care Provider] - 1-2 days Time of Disposition: 18:31
[2019-12-03 18:04] LABS: Basophils % (A) 0 %; Eosinophils # (A) 0.2 k/uL (0-0.7); Eosinophils % (A) 2 %; HCT 33.5 % (39.0-53.0); HGB 10.7 gm/dL (13.0-17.5); Lymphocytes # (A) 0.7 k/uL (1.0-4.8); Lymphocytes % (A) 7 %; MCH 30.2 pg (25.0-35.0); MCHC 32.1 g/dL (31.0-37.0); Mean Platelet Volume 8.9; Monocytes # (A) 0.6 k/uL (0-1.0); Monocytes % (A) 6 %; Neutrophils # (A) 8.4 k/uL (1.3-7.7); Neutrophils % (A) 84 %; Platelet Count 155 k/uL (150-450); RBC 3.56 m/uL (4.30-5.90); RDW 15.5 % (11.5-15.5); WBC 9.9 k/uL (3.8-10.6)
[2019-12-03 18:12] LABS: Albumin 4.3 g/dL (3.5-5.0); Calcium 9.2 mg/dL (8.4-10.2); Potassium 4.7 mmol/L (3.5-5.1); Total Bilirubin 0.4 mg/dL (0.2-1.3); Total Protein 7.4 g/dL (6.3-8.2)
--- NOTE | 2019-12-03 18:19 | XR ---
EXAMINATION TYPE: XR abdomen 1V DATE OF EXAM: 12/03/2019 COMPARISON: NONE HISTORY: Abdominal pain TECHNIQUE: 2 views upright FINDINGS: There is no sign of intestinal obstruction or pneumoperitoneum. Fecal pattern is normal. Th ere is some amorphous rounded calcification that measures 5 cm over the left mid abdomen that is calc ified left renal cyst demonstrated on the CT scan of 02/25/2017. There are no pathologic calcifications over the ureters. There is apparent urinary bladder catheter. There is no evidence of abdominal mass. IMPRESSION: Nonacute abdomen.
[2019-12-03] MEDS ORDERED: SODIUM CHLORIDE 0.9% 1,000 ML IV STA (18:20)
[2019-12-03] MEDS ORDERED: SODIUM CHLORIDE 0.9% 500 ML 500 ML IV STA (18:21)
[2019-12-03 18:47] VITALS: BP 163/69; PULSE 70
== END 2019-12-03 19:39 | disposition home or self-care (01) ==
LOC: EC 16:40
DX: E86.0 Dehydration (principal); E78.5 Hyperlipidemia, unspecified; I10 Essential (primary) hypertension; M19.90 Unspecified osteoarthritis, unspecified site; I25.10 Atherosclerotic heart disease of native coronary artery without angina pectoris; G47.33 Obstructive sleep apnea (adult) (pediatric); E11.40 Type 2 diabetes mellitus with diabetic neuropathy, unspecified; Z79.82 Long term (current) use of aspirin; Z79.84 Long term (current) use of oral hypoglycemic drugs; Z79.899 Other long term (current) drug therapy; Z99.89 Dependence on other enabling machines and devices; Z85.46 Personal history of malignant neoplasm of prostate; Z95.5 Presence of coronary angioplasty implant and graft; Z95.1 Presence of aortocoronary bypass graft; Z92.3 Personal history of irradiation; Z92.21 Personal history of antineoplastic chemotherapy
CPT/HCPCS: 36415; 51798; 74018; 80053; 85025; 96360; 99284

== ENCOUNTER 2019-12-14 17:59 | Emergency (ER) | payer MEDICARE ==
--- NOTE | 2019-12-14 19:50 | ED ---
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 Reported that his last normal urination was this morning. Patient he has some sensation that he has to go and then some suprapubic pressu re. Denies any other complaints. Denies any use of blood thinners. Systemic: Pt denies fatigue, fever/chills, rash. Pt denies weakness, night sweats, weight loss. Neuro: Pt denies headache, visual disturbances, syncope or pre-syncope. HEENT: Pt denies ocular discharge or irritation, otalgia, rhinorrhea, pharyngitis or notable lymphadenopathy. Cardiopulmonary: Pt denies chest pain, SOB, heart palpitations, dyspnea on exertion. Abdominal/GI: Pt denies abdominal pain, n/v/d. : Pt denies dysuria, burning w/ urination, frequency/urgency. MSK: Pt denies myalgia, loss of strength or function in extremities. Neuro: Pt denies new onset weakness, paresthesias. - Related Data Home Medications Medication Instructions Recorded Confirmed Docusate [Colace] 100 mg PO BID 03/01/17 05/14/18 Glucosam/Donnie-Msm1/C/Pardeep/Bosw 1 tab PO HS 03/01/17 05/14/18 [Glucosamine-Chondroitin Tablet] Multivitamins, Thera [Multivitamin 1 tab PO DAILY@1700 03/01/17 05/14/18 (formulary)] Simvastatin [Zocor] 20 mg PO HS 03/01/17 05/14/18 allopurinoL [Zyloprim] 300 mg PO Q48H 03/01/17 05/14/18 Mirabegron [Myrbetriq] 50 mg PO DAILY 06/27/17 05/14/18 sitaGLIPtin PHOS/metFORMIN HCL 1 tab PO HS 06/27/17 05/14/18 [Janumet 50-500 mg Tablet] Calcium Carbonate/Vitamin D3 1 tab PO DAILY 10/11/17 05/14/18 [Calcium 600-Vit D3 200 Tablet] Turmeric Root Extract [Turmeric] 500 mg PO DAILY@1700 10/11/17 05/14/18 Ferrous Sulfate [Iron (65 MG 325 mg PO DAILY@1700 02/25/18 05/14/18 Elemental)] Aspirin [[place] Aspirin EC] 81 mg PO DAILY 05/14/18 05/14/18 Famotidine [Pepcid] 20 mg PO BID 05/14/18 05/14/18 Previous Rx's Medication Instructions Recorded Gabapentin [Neurontin] 300 mg PO HS #0 03/06/18 Torsemide [Demadex] 20 mg PO DAILY #30 tab 03/27/18 Cefuroxime Axetil [Ceftin] 500 mg PO BID #14 tab 05/18/18 Hydrocortisone [Cortef] 10 mg PO BID #60 tablet 05/18/18 Sacubitril/Valsartan [Entresto 24 1 each PO BID #60 tablet 05/18/18 mg-26 mg Tablet] Allergies Allergy/AdvReac Type Severity Reaction Status Date / Time No Known Allergies Allergy Verified 12/14/19 18:05 Review of Systems ROS Statement: Those systems with pertinent positive or pertinent negative responses have been documented in the HPI. ROS Other: All systems not noted in ROS Statement are negative. 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 Anemia with blood transfusions.02/25/2018 WAS IN [facility] FOR SEPSIS UTI ECOLI INFECTION. HAS A MEDLINE PORT LEFT UPPER ARM FROM [facility] 03/22/2018 History of Any Multi-Drug Resistant Organisms: ESBL Date of last positivie culture/infection: 02/25/18 MDRO Source:: urine, blood esbl Past Surgical History: Cardiac Valve Replacement, Coronary Bypass/CABG, Heart Catheterization Additional Past Surgical History / Comment(s): 03/02/17 cystoscopy/evacuation clots and fulguration bladder, 01/20/12 CABG-3 vessel with aortic valve. Past Anesthesia/Blood Transfusion Reactions: No Reported Reaction Past Psychological History: No Psychological Hx Reported Smoking Status: Never smoker Past Alcohol Use History: Occasional Past Drug Use History: None Reported - Past Family History Mother Family Medical History: Myocardial Infarction ([place]) Additional Family Medical History / Comment(s): Mother at age 67 from a myocardial infarction. Father Family Medical History: Diabetes Mellitus, Myocardial Infarction ([place]) Additional Family Medical History / Comment(s): Father from complications from diabetes mellitus that was uncontrolled with frequent episodes of coma. He also has history of myocardial infarction. The patient has no children and no siblings. General Exam - General Exam Comments Initial Comments: Constitutional: NAD, AOX3, Pt has pleasant affect. HEENT: NC/AT, trachea midline, neck supple, no lymphadenopathy. External ears appear normal, without discharge. Mucous membranes moist. Eyes PERRLA, EOM intact. There is no scleral icterus. No pallor noted. Cardiopulmonary: RRR, no murmurs, rubs or gallops, no JVD noted. Lungs CTAB in anterior and posterior germain. No peripheral edema. Abdominal exam: Abdomen soft and non-distended. Abdomen non-tender to palpation in all 4 quadrants. Bowel sounds active in LLQ. No hepatosplenomegaly. No ecchymosis Neuro: CN II-XII grossly intact. No nuchal rigidity. MSK: No posterior calf tenderness bilaterally, homans sign negative bilaterally. Extremities warm and well perfused. Sensation intact in upper and lower extremities. Full active ROM in upper and lower extremities. Course Vital Signs 12/14/19 18:01 Temperature 99.4 F Pulse Rate 84 Respiratory 18 Rate Blood Pressure 161/67 O2 Sat by Pulse 97 Oximetry Medical Decision Making - Medical Decision Making 83-year-old male patient with chief urinary retention secondary to blood clots in his urine which she has had for greater than 8 years emergency radiation due to prostate cancer. Bladder scan did display urinary retention. A catheter was placed in patient's symptoms Of suprapubic pressure resolved. Patient feeling much improved requesting discharge. Will discharge the patient follow up with urology. Will return to ED with any worsening symptoms. Case discussed with Dr. Lisa. Disposition Clinical Impression: Urinary retention Disposition: HOME SELF-CARE Condition: Stable Instructions (If sedation given, give patient instructions): Urinary Retention in Men (ED) Additional Instructions: follow-up with primary care provider tomorrow. Follow-up with urologist tomorrow. Return to ER with any worsening symptoms. Is patient prescribed a controlled substance at d/c from ED?: No Referrals: Alfredo Self MD [Primary Care Provider] - 1-2 days Ramo Buckley MD [STAFF PHYSICIAN] - 1-2 days
[2019-12-14 20:21] LABS: Basophils % (A) 0 %; Eosinophils # (A) 0.2 k/uL (0-0.7); Eosinophils % (A) 2 %; HGB 9.6 gm/dL (13.0-17.5); Lymphocytes # (A) 0.6 k/uL (1.0-4.8); Lymphocytes % (A) 5 %; MCH 30.3 pg (25.0-35.0); MCHC 33.2 g/dL (31.0-37.0); MCV 91.1 fL (80.0-100.0); Mean Platelet Volume 7.6; Monocytes # (A) 0.6 k/uL (0-1.0); Monocytes % (A) 5 %; Neutrophils # (A) 10.9 k/uL (1.3-7.7); Neutrophils % (A) 88 %; Platelet Count 235 k/uL (150-450); RBC 3.18 m/uL (4.30-5.90); RDW 14.9 % (11.5-15.5); WBC 12.3 k/uL (3.8-10.6)
[2019-12-14 22:33] VITALS: TEMP 98.6
[2019-12-14 22:38] VITALS: BP 121/75; PULSE 94; RESP 19
== END 2019-12-14 22:17 | disposition home or self-care (01) ==
LOC: EC 17:59
DX: R33.9 Retention of urine, unspecified (principal); I25.10 Atherosclerotic heart disease of native coronary artery without angina pectoris; I10 Essential (primary) hypertension; E78.5 Hyperlipidemia, unspecified; G47.30 Sleep apnea, unspecified; C61 Malignant neoplasm of prostate; E11.40 Type 2 diabetes mellitus with diabetic neuropathy, unspecified; Z79.84 Long term (current) use of oral hypoglycemic drugs; Z79.82 Long term (current) use of aspirin; Z79.899 Other long term (current) drug therapy; Z95.1 Presence of aortocoronary bypass graft; Z95.2 Presence of prosthetic heart valve; Z99.89 Dependence on other enabling machines and devices
CPT/HCPCS: 36415; 51702; 85025; 99284

== ENCOUNTER 2019-12-15 06:39 | Emergency (ER) | payer MEDICARE ==
--- NOTE | 2019-12-15 06:49 | ED ---
General Adult HPI - General Stated complaint: Fall Time Seen by Provider: 12/15/19 06:41 Source: patient, EMS, RN notes reviewed Mode of arrival: EMS Limitations: no limitations - History of Present Illness Initial comments: This an 83-year-old male presents emergency Department chief complaint of blocked Ortiz catheter. Patient states he was here yesterday was discharged with a Ortiz catheter leg bag. Patient states that he woke up felt some lower abdominal pressure and realized his catheter was not draining. Patient states then got up to try to fix it but states he turned around quickly lost his balance and fell. He had no head injury no loss conscious. Patient states that he has no pain from the fall denies head neck back or extremity pain. Patient states that he has no injury from the fall no abdominal pain states he has some lower abdominal pressure. Patient states she's had recurrent issues with cystitis from prior radiation. Patient denies any fevers chills no chest pain or shortness breath. - Related Data Home Medications Medication Instructions Recorded Confirmed Docusate [Colace] 100 mg PO BID 03/01/17 05/14/18 Glucosam/Donnie-Msm1/C/Pardeep/Bosw 1 tab PO HS 03/01/17 05/14/18 [Glucosamine-Chondroitin Tablet] Multivitamins, Thera [Multivitamin 1 tab PO DAILY@1700 03/01/17 05/14/18 (formulary)] Simvastatin [Zocor] 20 mg PO HS 03/01/17 05/14/18 allopurinoL [Zyloprim] 300 mg PO Q48H 03/01/17 05/14/18 Mirabegron [Myrbetriq] 50 mg PO DAILY 06/27/17 05/14/18 sitaGLIPtin PHOS/metFORMIN HCL 1 tab PO HS 06/27/17 05/14/18 [Janumet 50-500 mg Tablet] Calcium Carbonate/Vitamin D3 1 tab PO DAILY 10/11/17 05/14/18 [Calcium 600-Vit D3 200 Tablet] Turmeric Root Extract [Turmeric] 500 mg PO DAILY@1700 10/11/17 05/14/18 Ferrous Sulfate [Iron (65 MG 325 mg PO DAILY@1700 02/25/18 05/14/18 Elemental)] Aspirin [[place] Aspirin EC] 81 mg PO DAILY 05/14/18 05/14/18 Famotidine [Pepcid] 20 mg PO BID 05/14/18 05/14/18 Previous Rx's Medication Instructions Recorded Gabapentin [Neurontin] 300 mg PO HS #0 03/06/18 Torsemide [Demadex] 20 mg PO DAILY #30 tab 03/27/18 Cefuroxime Axetil [Ceftin] 500 mg PO BID #14 tab 05/18/18 Hydrocortisone [Cortef] 10 mg PO BID #60 tablet 05/18/18 Sacubitril/Valsartan [Entresto 24 1 each PO BID #60 tablet 05/18/18 mg-26 mg Tablet] Allergies Allergy/AdvReac Type Severity Reaction Status Date / Time No Known Allergies Allergy Verified 12/14/19 18:05 Review of Systems ROS Statement: Those systems with pertinent positive or pertinent negative responses have been documented in the HPI. ROS Other: All systems not noted in ROS Statement are negative. 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 Anemia with blood transfusions.02/25/2018 WAS IN [facility] FOR SEPSIS UTI ECOLI INFECTION. HAS A MEDLINE PORT LEFT UPPER ARM FROM [facility] 03/22/2018 History of Any Multi-Drug Resistant Organisms: ESBL Date of last positivie culture/infection: 02/25/18 MDRO Source:: urine, blood esbl Past Surgical History: Cardiac Valve Replacement, Coronary Bypass/CABG, Heart Catheterization Additional Past Surgical History / Comment(s): 03/02/17 cystoscopy/evacuation clots and fulguration bladder, 01/20/12 CABG-3 vessel with aortic valve. Past Anesthesia/Blood Transfusion Reactions: No Reported Reaction Past Psychological History: No Psychological Hx Reported Smoking Status: Never smoker Past Alcohol Use History: Occasional Past Drug Use History: None Reported - Past Family History Mother Family Medical History: Myocardial Infarction ([place]) Additional Family Medical History / Comment(s): Mother at age 67 from a myocardial infarction. Father Family Medical History: Diabetes Mellitus, Myocardial Infarction ([place]) Additional Family Medical History / Comment(s): Father from complications from diabetes mellitus that was uncontrolled with frequent episodes of coma. He also has history of myocardial infarction. The patient has no children and no siblings. General Exam General appearance: alert, in no apparent distress Head exam: Present: atraumatic, normocephalic, normal inspection Eye exam: Present: normal appearance, PERRL, EOMI. Absent: scleral icterus, conjunctival injection, periorbital swelling ENT exam: Present: normal exam, normal oropharynx, mucous membranes moist Neck exam: Present: normal inspection, full ROM. Absent: tenderness, meningismus, lymphadenopathy Respiratory exam: Present: normal lung sounds bilaterally. Absent: respiratory distress, wheezes, rales, rhonchi, stridor Cardiovascular Exam: Present: regular rate, normal rhythm, normal heart sounds. Absent: systolic murmur, diastolic murmur, rubs, gallop, clicks GI/Abdominal exam: Present: soft, tenderness (Mild suprapubic), normal bowel sounds. Absent: distended, guarding, rebound, rigid Extremities exam: Present: normal inspection, full ROM. Absent: tenderness Back exam: Present: full ROM. Absent: tenderness, paraspinal tenderness, vertebral tenderness Neurological exam: Present: alert, oriented X3, CN II-XII intact, reflexes normal. Absent: motor sensory deficit Medical Decision Making - Medical Decision Making Ortiz catheter leg bag was clamped off, this was corrected, Ortiz catheter is draining with no complications. Patient had no noted injuries from his fall. Patient be discharged in stable condition return parameters were discussed. Disposition Clinical Impression: Ortiz catheter problem, Fall Disposition: HOME SELF-CARE Condition: Stable Instructions (If sedation given, give patient instructions): Ortiz Catheter Placement and Care (ED) Additional Instructions: Please return to the Emergency Department if symptoms worsen or any other concerns. Is patient prescribed a controlled substance at d/c from ED?: No Referrals: Alfredo Self MD [Primary Care Provider] - 1-2 days Time of Disposition: 06:49
[2019-12-15 06:53] VITALS: BP 138/71; PULSE 86; RESP 18; TEMP 98
== END 2019-12-15 07:03 | disposition home or self-care (01) ==
LOC: EC 06:39
DX: T83.091A Other mechanical complication of indwelling urethral catheter, initial encounter (principal); E11.9 Type 2 diabetes mellitus without complications; E78.5 Hyperlipidemia, unspecified; I10 Essential (primary) hypertension; I25.10 Atherosclerotic heart disease of native coronary artery without angina pectoris; Z79.84 Long term (current) use of oral hypoglycemic drugs; Z79.82 Long term (current) use of aspirin; Z79.899 Other long term (current) drug therapy; Z95.5 Presence of coronary angioplasty implant and graft; Z95.1 Presence of aortocoronary bypass graft; Z85.46 Personal history of malignant neoplasm of prostate; Z92.3 Personal history of irradiation; Z92.21 Personal history of antineoplastic chemotherapy; Z99.89 Dependence on other enabling machines and devices
CPT/HCPCS: 99283

== ENCOUNTER 2019-12-23 14:56 | Emergency (ER) | payer MEDICARE ==
[2019-12-23 15:02] VITALS: RESP 18; TEMP 98.9
--- NOTE | 2019-12-23 15:26 | ED ---
General Adult HPI - General Chief complaint: Urogenital Stated complaint: bladder pain/blood in urine Time Seen by Provider: 12/23/19 15:03 Source: patient, RN notes reviewed, old records reviewed Mode of arrival: ambulatory Limitations: no limitations - History of Present Illness Initial comments: 84-year-old male patient to ED for urinary retention secondary to hematuria and blood clots and urinary catheter. Began this morning. Patient reports that he has been having hematuria following up the urologist. He is due to see the urologist tomorrow morning. Reports that he began began having some hematuria yesterday and then today after about 90 on his catheter stopped draining. Reports suprapubic pressure. Denies any recent falls or trauma or any other acute complaints. Systemic: Pt denies fatigue, fever/chills, rash. Pt denies weakness, night sweats, weight loss. Neuro: Pt denies headache, visual disturbances, syncope or pre-syncope. HEENT: Pt denies ocular discharge or irritation, otalgia, rhinorrhea, pharyngitis or notable lymphadenopathy. Cardiopulmonary: Pt denies chest pain, SOB, heart palpitations, dyspnea on exer tion. Abdominal/GI: Pt denies abdominal pain, n/v/d. : Pt denies dysuria, burning w/ urination, frequency/urgency. Denies new onset urinary or bowel incontinence. MSK: Pt denies myalgia, loss of strength or function in extremities. Neuro: Pt denies new onset weakness, paresthesias. - Related Data Home Medications Medication Instructions Recorded Confirmed Docusate [Colace] 100 mg PO BID 03/01/17 05/14/18 Glucosam/Donnie-Msm1/C/Pardeep/Bosw 1 tab PO HS 03/01/17 05/14/18 [Glucosamine-Chondroitin Tablet] Multivitamins, Thera [Multivitamin 1 tab PO DAILY@1700 03/01/17 05/14/18 (formulary)] Simvastatin [Zocor] 20 mg PO HS 03/01/17 05/14/18 allopurinoL [Zyloprim] 300 mg PO Q48H 03/01/17 05/14/18 Mirabegron [Myrbetriq] 50 mg PO DAILY 06/27/17 05/14/18 sitaGLIPtin PHOS/metFORMIN HCL 1 tab PO HS 06/27/17 05/14/18 [Janumet 50-500 mg Tablet] Calcium Carbonate/Vitamin D3 1 tab PO DAILY 10/11/17 05/14/18 [Calcium 600-Vit D3 200 Tablet] Turmeric Root Extract [Turmeric] 500 mg PO DAILY@1700 10/11/17 05/14/18 Ferrous Sulfate [Iron (65 MG 325 mg PO DAILY@1700 02/25/18 05/14/18 Elemental)] Aspirin [[place] Aspirin EC] 81 mg PO DAILY 05/14/18 05/14/18 Famotidine [Pepcid] 20 mg PO BID 05/14/18 05/14/18 Previous Rx's Medication Instructions Recorded Gabapentin [Neurontin] 300 mg PO HS #0 03/06/18 Torsemide [Demadex] 20 mg PO DAILY #30 tab 03/27/18 Cefuroxime Axetil [Ceftin] 500 mg PO BID #14 tab 05/18/18 Hydrocortisone [Cortef] 10 mg PO BID #60 tablet 05/18/18 Sacubitril/Valsartan [Entresto 24 1 each PO BID #60 tablet 05/18/18 mg-26 mg Tablet] Allergies Allergy/AdvReac Type Severity Reaction Status Date / Time No Known Allergies Allergy Verified 12/23/19 15:01 Review of Systems ROS Statement: Those systems with pertinent positive or pertinent negative responses have been documented in the HPI. ROS Other: All systems not noted in ROS Statement are negative. 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 Anemia with blood transfusio ns.02/25/2018 WAS IN [facility] FOR SEPSIS UTI ECOLI INFECTION. HAS A MEDLINE PORT LEFT UPPER ARM FROM [facility] 03/22/2018 History of Any Multi-Drug Resistant Organisms: ESBL Date of last positivie culture/infection: 02/25/18 MDRO Source:: urine, blood esbl Past Surgical History: Cardiac Valve Replacement, Coronary Bypass/CABG, Heart Catheterization Additional Past Surgical History / Comment(s): 03/02/17 cystoscopy/evacuation clots and fulguration bladder, 01/20/12 CABG-3 vessel with aortic valve. Past Anesthesia/Blood Transfusion Reactions: No Reported Reaction Past Psychological History: No Psychological Hx Reported Smoking Status: Never smoker Past Alcohol Use History: Occasional Past Drug Use History: None Reported - Past Family History Mother Family Medical History: Myocardial Infarction ([place]) Additional Family Medical History / Comment(s): Mother at age 67 from a myocardial infarction. Father Family Medical History: Diabetes Mellitus, Myocardial Infarction ([place]) Additional Family Medical History / Comment(s): Father from complications from diabetes mellitus that was uncontrolled with frequent episodes of coma. He also has history of myocardial infarction. The patient has no children and no siblings. General Exam - General Exam Comments Initial Comments: Constitutional: NAD, AOX3, Pt has pleasant affect. HEENT: NC/AT, trachea midline, neck supple, no lymphadenopathy. External ears appear normal, without discharge. Mucous membranes moist. Eyes PERRLA, EOM intact. There is no scleral icterus. No pallor noted. Cardiopulmonary: RRR, no murmurs, rubs or gallops, no JVD noted. Lungs CTAB in anterior and posterior germain. No peripheral edema. Abdominal exam: Abdomen soft and non-distended. Abdomen non-tender to palpation in all 4 quadrants. Bowel sounds active in LLQ. No hepatosplenomegaly. No ecchymosis Neuro: CN II-XII grossly intact. No nuchal rigidity. No raccon eyes, no arredondo sign, no hemotympanum. No cervical spinal tenderness. MSK: Full active ROM in upper and lower extremities, 5/5 stregnth. Limitations: no limitations Course Vital Signs 12/23/19 14:59 Temperature 98.9 F Pulse Rate 84 Respiratory 18 Rate Blood Pressure 152/73 O2 Sat by Pulse 98 Oximetry Medical Decision Making - Medical Decision Making 85-year-old male patient to ED for catheter clogged with blood clot. A scan revealed 550 mL in the bladder. Catheter was irrigated now freely draining. Patient's improve the pressure is relieved. We discharged with outpatient follow-up with urology tomorrow regarding as scheduled. Case discussed with Dr. Lerner. Disposition Clinical Impression: Hematuria Disposition: HOME SELF-CARE Condition: Stable Instructions (If sedation given, give patient instructions): Hematuria (ED) Additional Instructions: Follow up with urologist tomorrow. Return to ED with any worsening symptoms. Is patient prescribed a controlled substance at d/c from ED?: No Referrals: Alfredo Self MD [Primary Care Provider] - 1-2 days
[2019-12-23 15:56] VITALS: BP 121/60; PULSE 74
== END 2019-12-23 15:58 | disposition home or self-care (01) ==
LOC: EC 14:56
DX: R31.9 Hematuria, unspecified (principal); R33.9 Retention of urine, unspecified; E11.40 Type 2 diabetes mellitus with diabetic neuropathy, unspecified; E78.5 Hyperlipidemia, unspecified; I10 Essential (primary) hypertension; I25.10 Atherosclerotic heart disease of native coronary artery without angina pectoris; M19.90 Unspecified osteoarthritis, unspecified site; G47.33 Obstructive sleep apnea (adult) (pediatric); Z79.899 Other long term (current) drug therapy; Z79.84 Long term (current) use of oral hypoglycemic drugs; Z99.89 Dependence on other enabling machines and devices; Z79.82 Long term (current) use of aspirin; Z95.5 Presence of coronary angioplasty implant and graft; Z95.1 Presence of aortocoronary bypass graft; Z92.3 Personal history of irradiation; Z92.21 Personal history of antineoplastic chemotherapy; Z85.46 Personal history of malignant neoplasm of prostate
CPT/HCPCS: 51798; 99284

== ENCOUNTER 2019-12-25 02:32 | Emergency (ER) | payer MEDICARE ==
[2019-12-25 02:44] VITALS: PULSE 91; RESP 18; TEMP 99.2
--- NOTE | 2019-12-25 03:22 | ED ---
Male Urogenital HPI - General Chief complaint: Urogenital Stated complaint: Urogenital Time Seen by Provider: 12/25/19 02:35 Source: patient, EMS Mode of arrival: EMS Limitations: no limitations - History of Present Illness Initial comments: Humberto is a very pleasant 84-year-old gentleman with a history of bladder cancer and radiation cystitis who currently has a Perdomo catheter in place due to chronic hematuria. Patient is scheduled for a cystography with clot evacuation later today however reports that he's had no drainage from his urinary catheter since yesterday evening he feels a lot of pressure as though his bladder is full and obstructed. Patient reports he asked his to bring him to the ER this morning due to inability to tolerate the discomfort however when he walked outside and had a flat tire he couldn't wait; ambulance to bring him to the hospital. - Related Data Home Medications Medication Instructions Recorded Confirmed Docusate [Colace] 100 mg PO BID 03/01/17 12/24/19 Glucosam/Donnie-Msm1/C/Pardeep/Bosw 1 tab PO HS 03/01/17 12/24/19 [Glucosamine-Chondroitin Tablet] Multivitamins, Thera [Multivitamin 1 tab PO QAM 03/01/17 12/24/19 (formulary)] allopurinoL [Zyloprim] 300 mg PO Q48H 03/01/17 12/24/19 Mirabegron [Myrbetriq] 50 mg PO QAM 06/27/17 12/24/19 sitaGLIPtin PHOS/metFORMIN HCL 1 tab PO HS 06/27/17 12/24/19 [Janumet 50-500 mg Tablet] Calcium Carbonate/Vitamin D3 1 tab PO QAM 10/11/17 12/24/19 [Calcium 600-Vit D3 200 Tablet] Ferrous Sulfate [Iron (65 MG 325 mg PO QAM 02/25/18 12/24/19 Elemental)] Aspirin [[place] Aspirin EC] 81 mg PO Q48H 05/14/18 12/24/19 Celecoxib [CeleBREX] 200 mg PO HS 12/24/19 12/24/19 Cranberry 300 mg PO HS 12/24/19 DULoxetine HCL [Cymbalta] 30 mg PO QAM 12/24/19 12/24/19 Nitrofurantoin Macrocrystal 100 mg PO QAM 12/24/19 12/24/19 [Macrodantin] Rosuvastatin [Crestor] 10 mg PO HS 12/24/19 12/24/19 Torsemide [Demadex] 20 mg PO BID 12/24/19 12/24/19 Turmeric Root Extract [Turmeric] 500 mg PO QAM 12/24/19 12/24/19 Previous Rx's Medication Instructions Recorded Gabapentin [Neurontin] 300 mg PO HS #0 03/06/18 Hydrocortisone [Cortef] 10 mg PO BID #60 tablet 05/18/18 Sacubitril/Valsartan [Entresto 24 1 each PO BID #60 tablet 05/18/18 mg-26 mg Tablet] Allergies Allergy/AdvReac Type Severity Reaction Status Date / Time No Known Allergies Allergy Verified 12/24/19 11:36 Review of Systems ROS Statement: Those systems with pertinent positive or pertinent negative responses have been documented in the HPI. ROS Other: All systems not noted in ROS Statement are negative. 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 Anemia with blood transfusions.02/25/2018 WAS IN [facility] FOR SEPSIS UTI ECOLI INFECTION. History of Any Multi-Drug Resistant Organisms: ESBL Date of last positivie culture/infection: 02/25/18 MDRO Source:: urine, blood esbl Past Surgical History: Cardiac Valve Replacement, Coronary Bypass/CABG, Heart Catheterization Additional Past Surgical History / Comment(s): 03/02/17 cystoscopy/evacuation clots and fulguration bladder, 01/20/12 CABG-3 vessel with aortic valve. Past Anesthesia/Blood Transfusion Reactions: No Reported Reaction Past Psychological History: No Psychological Hx Reported Smoking Status: Former smoker Past Alcohol Use History: None Reported Past Drug Use History: None Reported - Past Family History Mother Family Medical History: Myocardial Infarction ([place]) Additional Family Medical History / Comment(s): Mother at age 67 from a myocardial infarction. Father Family Medical History: Diabetes Mellitus, Myocardial Infarction ([place]) Additional Family Medical History / Comment(s): Father from complications from diabetes mellitus that was uncontrolled with frequent episodes of coma. He also has history of myocardial infarction. The patient has no children and no siblings. General Exam - General Exam Comments Initial Comments: Physical Exam GENERAL: Elderly gentleman, appears uncomfortable HENT: Normocephalic, Atraumatic. EYES: PERRL, EOMI PULMONARY: Unlabored respirations. CARDIOVASCULAR: RRR Warm and well perfused extremities ABDOMEN: Obese Bladder palpable to level of umbilicus Radiation tattoos noted in suprapubic region SKIN: No rashes or bruising : Perdomo catheter in place, <100cc dark blood in perdomo bag NEUROLOGIC: Alert and oriented Normal speech Normal gait MUSCULOSKELETAL: Moving all extremities with no apparent injury PSYCHIATRIC: No SI/HI Limitations: no limitations Course Vital Signs 12/25/19 02:36 Temperature 99.2 F Pulse Rate 91 Respiratory 18 Rate Blood Pressure 112/66 O2 Sat by Pulse 97 Oximetry Medical Decision Making - Medical Decision Making The patient was seen and evaluated history is obtained from patient and review of medical record including H&P completed by his urologist for procedure today Patient has a indwelling Perdomo catheter which appears to be obstructed Plan was to irrigate however when removing the bad we noted a large clot at the junction of the catheter and the bag, clot was evacuated and the patient was able to drain 500 mL of bloody urine. At this time patient has relief and is comfortable with plan for discharge home. Patient will remain nothing by mouth this morning and see his urologist for scheduled procedure today. Disposition Clinical Impression: Perdomo catheter problem, Hematuria Disposition: HOME SELF-CARE Condition: Stable Additional Instructions: Do not eat or drink anything today, return to the hospital as planned for procedure later today Is patient prescribed a controlled substance at d/c from ED?: No Referrals: Alfredo Self MD [Primary Care Provider] - 1-2 days
[2019-12-25 03:42] VITALS: BP 122/45
== END 2019-12-25 04:13 | disposition home or self-care (01) ==
LOC: EC 02:32
DX: T83.091A Other mechanical complication of indwelling urethral catheter, initial encounter (principal); I25.10 Atherosclerotic heart disease of native coronary artery without angina pectoris; E78.5 Hyperlipidemia, unspecified; I10 Essential (primary) hypertension; E11.40 Type 2 diabetes mellitus with diabetic neuropathy, unspecified; M19.90 Unspecified osteoarthritis, unspecified site; G47.33 Obstructive sleep apnea (adult) (pediatric); Z79.84 Long term (current) use of oral hypoglycemic drugs; Z79.82 Long term (current) use of aspirin; Z79.899 Other long term (current) drug therapy; Z87.891 Personal history of nicotine dependence; Z95.1 Presence of aortocoronary bypass graft; Z95.5 Presence of coronary angioplasty implant and graft; Z85.46 Personal history of malignant neoplasm of prostate; Z92.21 Personal history of antineoplastic chemotherapy; Z85.51 Personal history of malignant neoplasm of bladder; Z92.3 Personal history of irradiation; Z99.89 Dependence on other enabling machines and devices
CPT/HCPCS: 99284

== ENCOUNTER 2019-12-25 12:30 | Inpatient (IN) | payer MEDICARE ==
[2019-12-24 11:46] VITALS: BMI 41.5
--- NOTE | 2019-12-24 23:01 | P.GSHP ---
History of Present Illness H&P Date: 12/24/19 Chief Complaint: Urinary clot retention The patient is an 84-year-old white male diagnosed with prostate cancer in 2005. JEWEL revealed the left prostatic lobe to be nodular, and biopsies showed 100% involvement on the left side of Itmann score 8/10 with perineural invasion. The right-sided biopsies were negative. He was treated with ADT for 2 years along with radiation therapy, which he received at [facility]. This was administered by Dr. Romero. He also received chemotherapy. In 2006, he developed neuropathy which involved his lower back and right leg, the etiology of which was unclear. He underwent cystoscopy with evacuation of clots on March 02, 2017. 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 He recently presented back with gross hematuria and clots, and has failed conservative therapy. He now comes for cystoscopy, evacuation of clot, and fulguration of bleeders. 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 Anemia with blood transfusions.02/25/2018 WAS IN [facility] FOR SEPSIS UTI ECOLI INFECTION. History of Any Multi-Drug Resistant Organisms: ESBL Date of last positivie culture/infection: 02/25/18 MDRO Source:: urine, blood esbl Past Surgical History: Cardiac Valve Replacement, Coronary Bypass/CABG, Heart Catheterization Additional Past Surgical History / Comment(s): 03/02/17 cystoscopy/evacuation clots and fulguration bladder, 01/20/12 CABG-3 vessel with aortic valve. Past Anesthesia/Blood Transfusion Reactions: No Reported Reaction Smoking Status: Former smoker - Past Family History Mother Family Medical History: Myocardial Infarction ([place]) Additional Family Medical History / Comment(s): Mother at age 67 from a myocardial infarction. Father Family Medical History: Diabetes Mellitus, Myocardial Infarction ([place]) Additional Family Medical History / Comment(s): Father from complications from diabetes mellitus that was uncontrolled with frequent episodes of coma. He also has history of myocardial infarction. The patient has no children and no siblings. Medications and Allergies Home Medications Medication Instructions Recorded Confirmed Type Docusate [Colace] 100 mg PO BID 03/01/17 12/24/19 History Glucosam/Donnie-Msm1/C/Pardeep/Bosw 1 tab PO HS 03/01/17 12/24/19 History [Glucosamine-Chondroitin Tablet] Multivitamins, Thera [Multivitamin 1 tab PO QAM 03/01/17 12/24/19 History (formulary)] allopurinoL [Zyloprim] 300 mg PO Q48H 03/01/17 12/24/19 History Mirabegron [Myrbetriq] 50 mg PO QAM 06/27/17 12/24/19 History sitaGLIPtin PHOS/metFORMIN HCL 1 tab PO HS 06/27/17 12/24/19 History [Janumet 50-500 mg Tablet] Calcium Carbonate/Vitamin D3 1 tab PO QAM 10/11/17 12/24/19 History [Calcium 600-Vit D3 200 Tablet] Ferrous Sulfate [Iron (65 MG 325 mg PO QAM 02/25/18 12/24/19 History Elemental)] Gabapentin [Neurontin] 300 mg PO HS #0 03/06/18 12/24/19 Rx Aspirin [[place] Aspirin EC] 81 mg PO Q48H 05/14/18 12/24/19 History Hydrocortisone [Cortef] 10 mg PO BID #60 tablet 05/18/18 12/24/19 Rx Sacubitril/Valsartan [Entresto 24 1 each PO BID #60 tablet 05/18/18 12/24/19 Rx mg-26 mg Tablet] Celecoxib [CeleBREX] 200 mg PO HS 12/24/19 12/24/19 History Cranberry 300 mg PO HS 12/24/19 History DULoxetine HCL [Cymbalta] 30 mg PO QAM 12/24/19 12/24/19 History Nitrofurantoin Macrocrystal 100 mg PO QAM 12/24/19 12/24/19 History [Macrodantin] Rosuvastatin [Crestor] 10 mg PO HS 12/24/19 12/24/19 History Torsemide [Demadex] 20 mg PO BID 12/24/19 12/24/19 History Turmeric Root Extract [Turmeric] 500 mg PO QAM 12/24/19 12/24/19 History Allergies Allergy/AdvReac Type Severity Reaction Status Date / Time No Known Allergies Allergy Verified 12/24/19 11:36 Surgical - Exam - General well developed, well nourished, no distress - Respiratory normal respiratory effort - Abdomen Abdomen: soft, non tender, no guarding, no rigid, no rebound - Genitourinary normal penis with no external lesions, testicles non-tender - Psychiatric oriented to time, oriented to person, oriented to place, speech is normal, memory intact Assessment and Plan (1) Irradiation cystitis with hematuria Status: Acute Code(s): N30.41 - IRRADIATION CYSTITIS WITH HEMATURIA SNOMED Code(s): 36316980 Plan: Cystoscopy, evacuation of clot, fulguration of bleeders. The procedure has been reviewed in detail. He is aware of potential risks, which include anesthesia, bleeding, infection, and persistent bleeding.
[~2019-12-25 12:30] MED LIST: DEXAMETHASONE SOD PHOSPHATE 10 MG/ML 1 ML VIAL IV ONE; HYDROmorphone 0.5 MG/0.5 ML SYRINGE IVP PRN; MIDAZOLAM 2 MG/2 ML VIAL IV PRN; ONDANSETRON 4 MG/2 ML VIAL IVP ONE
[2019-12-25 13:05] LABS: Glucose,Whole Blood 125 mg/dL (75-99)
[2019-12-25] MEDS ORDERED: LIDOCAINE 1% (10MG/ML) FOR IV START INTRADERMA ONE (13:10)
[2019-12-25] MEDS: LACTATED RINGERS 1,000 ML IV SCH ×2 (13:13→16:29)
[2019-12-25] MEDS ORDERED: SUCCINYLCHOLINE CHLORIDE 100 MG/5 ML SYR IV ONE (14:18)
[2019-12-25] MEDS ORDERED: LIDOCAINE 1% INJ 10MG/ML (20 ML MDV) ONE (14:18)
[2019-12-25] MEDS ORDERED: fentaNYL (PF) 50 MCG/ML 2 ML AMP ONE (14:18)
[2019-12-25] MEDS ORDERED: MIDAZOLAM 2 MG/2 ML VIAL ONE (14:18)
[2019-12-25] MEDS ORDERED: PROPOFOL 10 MG/ML 20 ML VIAL IV ONE (14:18)
[2019-12-25] MEDS ORDERED: BACITRACIN ZINC 500 UNIT/GM OINT 28.4 GM TUBE TOPICAL ONE (15:38)
[2019-12-25] MEDS ORDERED: ACETAMINOPHEN TAB 325 MG TAB PO PRN (15:54)
[2019-12-25] MEDS ORDERED: HYDROcodone/APAP 5-325MG 1 EACH TAB PO PRN (15:54)
--- NOTE | 2019-12-25 16:05 | P.OP ---
Date of Procedure: 12/25/19 Preoperative Diagnosis: Urinary clot retention secondary to radiation cystitis Postoperative Diagnosis: Same Procedure(s) Performed: Cystoscopy, evacuation of clot, fulguration of bleeders Anesthesia: JOSE Surgeon: Ramo Buckley Estimated Blood Loss (ml): 30 IV fluids (ml): 700 Pathology: none sent Condition: stable Disposition: PACU Indications for Procedure: The patient is an 84-year-old white male diagnosed with prostate cancer in 2005. JEWEL revealed the left prostatic lobe to be nodular, and biopsies showed 100% involvement on the left side of Pj score 8/10 with perineural invasion. The right-sided biopsies were negative. He was treated with ADT for 2 years along with radiation therapy, which he received at [facility]. This was administered by Dr. Romero. He also received chemotherapy. In 2006, he developed neuropathy which involved his lower back and right leg, the etiology of which was unclear. He underwent cystoscopy with evacuation of clots on March 02, 2017. 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 He recently presented back with gross hematuria and clots, and has failed conservative therapy. He now comes for cystoscopy, evacuation of clot, and fulguration of bleeders. Operative Findings: Approximately 150 mL of clot removed from bladder. A bleeder was identified within the bladder trigone and fulgurated. Description of Procedure: The patient was taken to the operating room and placed in the dorsolithotomy position, with his legs supported in Domo stirrups. The external genitalia was prepped and draped sterilely. The 30 lens was used to introduce the 22-Lao Stortz cystoscopic sheath through the urethra and into the bladder under direct vision. The anterior urethra appeared normal. The prostate was visually occluded with a trilobar configuration. No bleeding was noted within the prostatic urethra. Upon entering the bladder, abundant clot was noted. The Robert Applebaum MD evacuator was used to remove approximately 150 mL of clot from the bladder. He was then possible to evaluate the bladder. No tumors or foreign bodies were seen. An arterial bleeder was noted within the bladder trigone. The Bugbee electrode was used to fulgurate this bleeder. Unfortunately, as this was performed, the adjacent urothelium began bleeding, and it was ultimately necessary to fulgurate much of the midportion of the trigone to attain hemostasis. The ureteral orifices were identified and care was taken not to fulgurate adjacent to them. Once adequate hemostasis was attained, the cystos cope was removed and a 22-Lao, three-way Ortiz catheter was placed. Continuous bladder irrigation was started using 0.9 normal saline. The return was faintly pink tinged. The Ortiz catheter was connected to gravity drainage. The patient tolerated the procedure well was taken to the recovery room in stable condition.
[2019-12-25 16:12] LABS: Glucose,Whole Blood 150 mg/dL (75-99)
[2019-12-25] MEDS ORDERED: ARTIFICIAL TEARS-HYPROMELLOSE DROPS 15 ML BTL LEFT EYE PRN (17:52)
[2019-12-25] MEDS: BELLADONNA-OPIUM 16.2-60 MG 1 EACH SUPP RECTAL ONE ×2 (17:54→22:45)
[2019-12-25] MEDS: SODIUM CHLORIDE 0.9% IRRIG 3,000 ML BAG IRRIGATION SCH ×2 (18:00→23:13)
--- NOTE | 2019-12-25 20:07 | P.CONS ---
History of Present Illness - Reason for Consult Consult date: 12/25/19 Medical management Requesting physician: Ramo Buckley - Chief Complaint Gross hematuria, radiation cystitis, post cystoscopy and cauterization, CAD - History of Present Illness 84-year-old male one of my office patient was morbidly obese with history of CAD, valvular heart disease, obstructive sleep apnea, history of prostate cancer post radiation with history of radiation cystitis who had recurrent UTI with ESBL infection and recurrent hematuria who has been having significant bloody urine for the last few weeks. Patient had several visits to the emergency room with blood clot blocking his catheter as well. Patient was seen Dr. Buckley and scheduled for elective cystoscopy with cauterization and fulguration of bleeders. Had this procedure done today and had Ortiz catheter with flushing on going through the night. Patient is doing well otherwise. Review of Systems CONSTITUTIONAL: Well-developed no acute respiratory distress. Will be due overweight EYES: No icterus sclerae, no conjunctivitis. EARS, NOSE, MOUTH, THROAT, and FACE: No sore throat, lymphadenopathy, carotid bruits or deformity. RESPIRATORY: No SOB cough or wheezes. CARDIOVASCULAR: No CP, Palpitation, PND, Orthopnea, or angina. GASTROINTESTINAL: No Abd pain, Nausea or vomiting, no Diarrhea or constipation, No GI Bleed, no distention or masses. GENITOURINARY: Hematuria with recurrent bleeding recurrent infection with history of prostate cancer. INTEGUMENT/BREAST: Negative for any muscular injury with mild osteoarthritis.. HEMATOLOGIC/LYMPHATIC: Negative for bleed or purpura. MUSCULOSKELTAL: Negative for Myalgia or arthralgia. Recurrent cellulitis of the lower extremity with significant edema. NEURLOGICAL: No LOC, Sz or syncope, blurred vision dizziness or abnormality.. BEHAVIORAL/PSYCH: Negative. ENDOCRINE: Negative. 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 Anemia with blood transfusions.02/25/2018 WAS IN [facility] FOR SEPSIS UTI ECOLI INFECTION. History of Any Multi-Drug Resistant Organisms: ESBL Year Discovered:: 02/25/18 MDRO Source:: urine, blood esbl Past Surgical History: Cardiac Valve Replacement, Coronary Bypass/CABG, Heart Catheterization Additional Past Surgical History / Comment(s): 03/02/17 cystoscopy/evacuation clots and fulguration bladder, 01/20/12 CABG-3 vessel with aortic valve. Past Anesthesia/Blood Transfusion Reactions: No Reported Reaction Past Psychological History: No Psychological Hx Reported Additional Psychological History / Comment(s): . Smoking Status: Former smoker Past Alcohol Use History: None Reported Additional Past Alcohol Use History / Comment(s): quit smoking 1983 was a smoker of one pack per day for approximately 25 years. Past Drug Use History: None Reported - Past Family History Mother Family Medical History: Myocardial Infarction ([place]) Additional Family Medical History / Comment(s): Mother at age 67 from a myocardial infarction. Father Family Medical History: Diabetes Mellitus, Myocardial Infarction ([place]) Additional Family Medical History / Comment(s): Father from complications from diabetes mellitus that was uncontrolled with frequent episodes of coma. He also has history of myocardial infarction. The patient has no children and no siblings. Medications and Allergies Home Medications Medication Instructions Recorded Confirmed Type Docusate [Colace] 100 mg PO BID 03/01/17 12/25/19 History Glucosam/Donnie-Msm1/C/Pardeep/Bosw 1 tab PO HS 03/01/17 12/25/19 History [Glucosamine-Chondroitin Tablet] Multivitamins, Thera [Multivitamin 1 tab PO QAM 03/01/17 12/25/19 History (formulary)] allopurinoL [Zyloprim] 300 mg PO Q48H 03/01/17 12/25/19 History Mirabegron [Myrbetriq] 50 mg PO QAM 06/27/17 12/25/19 History sitaGLIPtin PHOS/metFORMIN HCL 1 tab PO HS 06/27/17 12/25/19 History [Janumet 50-500 mg Tablet] Calcium Carbonate/Vitamin D3 1 tab PO QAM 10/11/17 12/25/19 History [Calcium 600-Vit D3 200 Tablet] Ferrous Sulfate [Iron (65 MG 325 mg PO QAM 02/25/18 12/25/19 History Elemental)] Gabapentin [Neurontin] 300 mg PO HS #0 03/06/18 12/25/19 Rx Aspirin [Yell Aspirin EC] 81 mg PO Q48H 05/14/18 12/25/19 History Hydrocortisone [Cortef] 10 mg PO BID #60 tablet 05/18/18 12/25/19 Rx Sacubitril/Valsartan [Entresto 24 1 each PO BID #60 tablet 05/18/18 12/25/19 Rx mg-26 mg Tablet] Celecoxib [CeleBREX] 200 mg PO HS 12/24/19 12/25/19 History Cranberry 300 mg PO HS 12/24/19 12/25/19 History DULoxetine HCL [Cymbalta] 30 mg PO QAM 12/24/19 12/25/19 History Nitrofurantoin Macrocrystal 100 mg PO QAM 12/24/19 12/25/19 History [Macrodantin] Rosuvastatin [Crestor] 10 mg PO HS 12/24/19 12/25/19 History Torsemide [Demadex] 20 mg PO BID 12/24/19 12/25/19 History Turmeric Root Extract [Turmeric] 500 mg PO QAM 12/24/19 12/25/19 History Allergies Allergy/AdvReac Type Severity Reaction Status Date / Time No Known Allergies Allergy Verified 12/25/19 12:45 Physical Exam Vitals: Vital Signs Temp Pulse Pulse Resp BP Pulse Ox 12/25/19 16:45 81 16 147/71 97 12/25/19 16:30 78 16 168/67 94 L 12/25/19 16:15 86 16 172/70 100 12/25/19 16:00 97.8 F 96 22 139/72 100 12/25/19 13:08 97 F L 86 16 162/71 96 Intake and Output 12/25/19 12/25/19 12/25/19 06:59 14:59 22:59 Intake Total 950 50 Output Total 2605 Balance 950 -2555 Intake: IV 950 50 Output: Urine 2575 3-way Urethral 2575 Estimated Blood Loss 30 Other: Voiding Method Indwelling Catheter Weight 127.6 kg 127.6 kg General Appearance: Alert, cooperative, no distress, appears stated age. Morbidly obese Neck HEENT: Supple, no lymphadenopathy, no thyroid enlargement, no carotid bruits. Lungs: Clear to auscultation without crackles or wheezes no rhonchi, no deformity. Chest Wall: Chest wall normal expansion with deep inspiration no tenderness and no deformity was found on exam, no costochondral pain or discomfort. Heart: Irregular rate and rhythm, S1, S2, positive S3 positive systolic murmur. . Back: Symmetric, no curvature, ROM normal, no CVA tenderness. Abdomen: Soft, non-tender, bowel sounds active all four quadrants, no masses, no organomegaly. Extremities: Extremities normal, atraumatic, slight edema of the lower extremity of mild discoloration from the knee down with decreased pulses bilaterally. Pulses: Decrease and symmetric bilaterally. Skin: Skin color, texture, tugor normal, no rashes or lesions. Neurologic: Alert oriented x3 cranial nerves II through XII intact, no motor def icit, no abnormal balance or gait. Results Labs: Abnormal Lab Results - Last 24 Hours (Table) 12/25/19 12/25/19 Range/Units 13:04 16:10 POC Glucose (mg/dL) 125 H 150 H (75-99) mg/dL Assessment and Plan Assessment: 1 gross hematuria: Post cystoscopy, evacuation of clots and fulguration of bleeders, continue flushing through the night continue to watch patient and with her and status, patient had significant anemia from bleeding before repeat CBC and if need transfusion if hemoglobin is below 8. 2 atherosclerotic heart disease: Post bypass surgery in the past has been on medical management doing well seen cardiology regular basis. 3 type 2 diabetes: Patient has been on Janumet continue Accu-Chek with sliding scales coverage. 4 hyperlipidemia: Has been on Crestor 10 mg a day. 5 severe cardiomyopathy: Has been on interest to along with Demadex. 6 chronic neuropathy: Has been on gabapentin. 7 chronic iron deficiency anemia: Remain on iron supplement. 8 overactive bladder: Has been on MIBI trick 50 mg daily. 9 depression: On Cymbalta 30 mg daily. 10 gout: With no flareup lately doing much better on allopurinol 3 in the milligrams every other day. 11 GI prophylaxis: Patient will be on Pepcid 20 mg daily. 12 DVT prophylaxis: Knee-high ANGELINA hose and Venodyne boots. CODE STATUS: DO NOT RESUSCITATE. Dr. Buckley thank you much for the consult if I can be any further help to please let me know.
[2019-12-25 21:02] LABS: Glucose,Whole Blood 213 mg/dL (75-99)
[2019-12-25] MEDS: ATORVASTATIN 20 MG TAB PO SCH (21:17)
[2019-12-25] MEDS: GABAPENTIN 300 MG CAP PO SCH (21:17)
[2019-12-25] MEDS: SODIUM CHLORIDE 0.9% 1,000 ML IV SCH (21:17)
[2019-12-25] MEDS: TORSEMIDE 20 MG TAB PO SCH (21:17)
[2019-12-25] MEDS: SACUBITRIL/VALSARTAN 24 MG-26 MG TABLET PO SCH (21:17)
[2019-12-25] MEDS: HYDROCORTISONE 10 MG TAB PO SCH (21:18)
[2019-12-25] MEDS: metFORMIN 500 MG TAB PO SCH (21:18)
[2019-12-25] MEDS: LINAGLIPTIN 5 MG TABLET PO SCH (21:18)
[2019-12-25] MEDS: DOCUSATE 100 MG CAP PO SCH (21:18)
[2019-12-26] MEDS: SODIUM CHLORIDE 0.9% IRRIG 3,000 ML BAG IRRIGATION SCH ×2 (02:03→05:55)
[2019-12-26 06:22] LABS: Basophils % (A) 0 %; Eosinophils % (A) 0 %; HCT 22.2 % (39.0-53.0); Hypochromasia Moderate; Lymphocytes # (A) 0.7 k/uL (1.0-4.8); Lymphocytes % (A) 5 %; MCH 30.2 pg (25.0-35.0); MCHC 31.7 g/dL (31.0-37.0); MCV 95.2 fL (80.0-100.0); Monocytes # (A) 0.6 k/uL (0-1.0); Monocytes % (A) 4 %; Neutrophils # (A) 13.1 k/uL (1.3-7.7); Neutrophils % (A) 90 %; Platelet Count 231 k/uL (150-450); Poikilocytosis Slight; RBC 2.34 m/uL (4.30-5.90); RDW 15.7 % (11.5-15.5); WBC 14.5 k/uL (3.8-10.6)
[2019-12-26 06:41] LABS: Glucose,Whole Blood 155 mg/dL (75-99)
[2019-12-26] MEDS: TORSEMIDE 20 MG TAB PO SCH ×2 (07:59→21:45)
[2019-12-26] MEDS: SODIUM CHLORIDE 0.9% 1,000 ML IV SCH ×2 (07:59→19:50)
[2019-12-26] MEDS: allopurinoL 300 MG TAB PO SCH (07:59)
[2019-12-26] MEDS: MULTIVITAMINS, THERA 1 EACH TAB PO SCH (07:59)
[2019-12-26] MEDS: DOCUSATE 100 MG CAP PO SCH ×2 (07:59→21:44)
[2019-12-26] MEDS: DULoxetine HCL 30 MG CAPSULE.DR PO SCH (07:59)
[2019-12-26] MEDS: SACUBITRIL/VALSARTAN 24 MG-26 MG TABLET PO SCH ×2 (07:59→21:45)
[2019-12-26] MEDS: HYDROCORTISONE 10 MG TAB PO SCH ×2 (07:59→21:45)
[2019-12-26] MEDS ORDERED: NON FORMULARY DRUG (Turmeric Root Extract [Turmeric] 500 MG Capsule) PO SCH (09:00)
[2019-12-26 12:00] LABS: Glucose,Whole Blood 178 mg/dL (75-99)
--- NOTE | 2019-12-26 13:32 | P.PN ---
Progress Note - Text Progress Note Date: 12/26/19 The patient continues to have gross hematuria. I irrigated between 100 and 150 mL of old clot from his bladder this morning. There still appears to be some clot present in the bladder. His three-way catheter will be removed and replaced with a 22-Icelandic Ortiz catheter to allow better bladder irrigation. Hgb this morning was 7.0. At the present time it's unclear whether the patient will need to have repeat cystoscopy under anesthesia with cautery for control of the hematuria.
--- NOTE | 2019-12-26 13:52 | P.PN ---
Subjective Progress Note Date: 12/26/19 HISTORY OF PRESENT ILLNESS 84-year-old male one of my office patient was morbidly obese with history of CAD, valvular heart disease, obstructive sleep apnea, history of prostate cancer post radiation with history of radiation cystitis who had recurrent UTI with ESBL infection and recurrent hematuria who has been having significant bloody urine for the last few weeks. Patient had several visits to the emergency room with blood clot blocking his catheter as well. Patient was seen Dr. Buckley and scheduled for elective cystoscopy with cauterization and fulguration of bleeders . Had this procedure done today and had Ortiz catheter with flushing on going through the night. Patient is doing well otherwise. 12/25: Patient utilize CPAP during the night. He states he had some difficulty with clotting in the Ortiz catheter during the night with increased abdominal pressure which is currently resolved. He continues to complain of soreness in the left eye with. periorbital edema. He has been afebrile, heart rate 80, blood pressure 129/74, pulse ox 94%. Repeat blood work reveals WBC 14.5, hemoglobin 7, platelet count 231. Hemoglobin prior to surgery was 9.6 and basel ine is around 10. Blood sugars running between 155 and 213. Urology is monitoring hematuria and will determine if patient requires repeat cystoscopy under anesthesia with cautery for control of hematuria. Patient is eating 50- 75% of meals. Incentive spirometry will be added. REVIEW OF SYSTEMS CONSTITUTIONAL: Well-developed no acute respiratory distress. Denies fever EYES: No icterus sclerae, no conjunctivitis. EARS, NOSE, MOUTH, THROAT, and FACE: No sore throat, lymphadenopathy, carotid bruits or deformity. RESPIRATORY: No SOB cough or wheezes. CARDIOVASCULAR: No CP, Palpitation, PND, Orthopnea, or angina. GASTROINTESTINAL: No Abd pain, Nausea or vomiting, no Diarrhea or constipation, No GI Bleed, no distention or masses. GENITOURINARY: Hematuria with recurrent bleeding recurrent infection with history of prostate cancer. INTEGUMENT/BREAST: Negative for any muscular injury with mild osteoarthritis.. HEMATOLOGIC/LYMPHATIC: Negative for bleed or purpura. MUSCULOSKELTAL: Negative for Myalgia or arthralgia. Recurrent cellulitis of the lower extremity with significant edema. NEURLOGICAL: No LOC, Sz or syncope, blurred vision dizziness or abnormality.. BEHAVIORAL/PSYCH: Negative. ENDOCRINE: Negative. PHYSICAL EXAMINATION General Appearance: Alert, cooperative, no distress, appears stated age. Morbidly obese Neck HEENT: Supple, no lymphadenopathy, no thyroid enlargement, no carotid bruits. Lungs: Clear to auscultation without crackles or wheezes no rhonchi, no deformity. Chest Wall: Chest wall normal expansion with deep inspiration no tenderness and no deformity was found on exam, no costochondral pain or discomfort. Heart: Irregular rate and rhythm, S1, S2, positive S3 positive systolic murmur. . Back: Symmetric, no curvature, ROM normal, no CVA tenderness. Abdomen: Soft, non-tender, bowel sounds active all four quadrants, no masses, no organomegaly. Ortiz catheter with bloody return. Extremities: Extremities normal, atraumatic, slight edema of the lower extremity of mild discoloration from the knee down with decreased pulses bilaterally. Pulses: Decrease and symmetric bilaterally. Skin: Skin color, texture, tugor normal, no rashes or lesions. Neurologic: Alert oriented x3 cranial nerves II through XII intact, no motor deficit, no abnormal balance or gait. ASSESSMENT AND PLAN 1 gross hematuria: Post cystoscopy, evacuation of clots and fulguration of bleeders, continue flushing through the night continue to watch patient and with her and status, patient had significant anemia from bleeding before repeat CBC and if need transfusion if hemoglobin is below 8. 2 atherosclerotic heart disease: Post bypass surgery in the past has been on medical management doing well seen cardiology regular basis. 3 type 2 diabetes: Patient has been on Janumet continue Accu-Chek with sliding scales coverage. 4 hyperlipidemia: Has been on Crestor 10 mg a day. 5 severe cardiomyopathy: Has been on interest to along with Demadex. 6 chronic neuropathy: Has been on gabapentin. 7 acute blood loss anemia due to hematuria with chronic iron deficiency anemia. Continue oral iron. Recheck hemoglobin in the morning. 8 overactive bladder: Has been on MIBI trick 50 mg daily. 9 recurrent depression: On Cymbalta 30 mg daily. 10 generalized gout: With no flareup lately doing much better on allopurinol 3 in the milligrams every other day. 11 acute kidney injury with chronic kidney disease stage III 12 GI prophylaxis: Patient will be on Pepcid 20 mg daily. 13 DVT prophylaxis: Knee-high ANGELINA hose and Venodyne boots. CODE STATUS: DO NOT RESUSCITATE. DISCHARGE PLAN Most likely home with home care once stabilized Impression and plan of care have been directed as dictated by the signing physician. Amrita Núñez nurse practitioner acting as scribe for signing physician. Objective - Vital Signs Vital signs: Vital Signs Temp 97.8 F 12/26/19 08:00 Pulse 80 12/26/19 08:00 Resp 19 12/26/19 08:00 BP 129/74 12/26/19 08:00 Pulse Ox 94 L 12/26/19 08:00 Intake & Output 12/25/19 12/26/19 12/26/19 18:59 06:59 18:59 Intake Total 1000 600 Output Total 2605 54517 Balance -1605 -32845 Weight 127.6 kg Intake: IV 1000 Oral 600 Output: Urine 2575 31057 3-way Urethral 2575 00210 Estimated Blood Loss 30 Other: Voiding Method Indwelling Catheter - Labs CBC & Chem 7: 12/26/19 05:41 Labs: Abnormal Lab Results - Last 24 Hours (Table) 12/25/19 12/25/19 12/25/19 Range/Units 13:04 16:10 20:59 WBC (3.8-10.6) k/uL RBC (4.30-5.90) m/uL Hgb (13.0-17.5) gm/dL Hct (39.0-53.0) % RDW (11.5-15.5) % Neutrophils # (1.3-7.7) k/uL Lymphocytes # (1.0-4.8) k/uL POC Glucose (mg/dL) 125 H 150 H 213 H (75-99) mg/dL 12/26/19 12/26/19 Range/Units 05:41 06:41 WBC 14.5 H (3.8-10.6) k/uL RBC 2.34 L (4.30-5.90) m/uL Hgb 7.0 L D (13.0-17.5) gm/dL Hct 22.2 L (39.0-53.0) % RDW 15.7 H (11.5-15.5) % Neutrophils # 13.1 H (1.3-7.7) k/uL Lymphocytes # 0.7 L (1.0-4.8) k/uL POC Glucose (mg/dL) 155 H (75-99) mg/dL
[2019-12-26 16:42] LABS: Glucose,Whole Blood 144 mg/dL (75-99)
[2019-12-26 20:51] LABS: Glucose,Whole Blood 148 mg/dL (75-99)
[2019-12-26] MEDS: metFORMIN 500 MG TAB PO SCH (21:44)
[2019-12-26] MEDS: GABAPENTIN 300 MG CAP PO SCH (21:44)
[2019-12-26] MEDS: ATORVASTATIN 20 MG TAB PO SCH (21:44)
[2019-12-26] MEDS: LINAGLIPTIN 5 MG TABLET PO SCH (21:44)
[2019-12-27] MEDS: LACTATED RINGERS 1,000 ML IV SCH (03:57)
[2019-12-27 07:01] LABS: Anisocytosis Slight; Hypochromasia Moderate; MCH 31.2 pg (25.0-35.0); MCHC 32.7 g/dL (31.0-37.0); MCV 95.3 fL (80.0-100.0); Mean Platelet Volume 7.9; Platelet Count 235 k/uL (150-450); Poikilocytosis Slight; RBC 1.86 m/uL (4.30-5.90); RDW 16.2 % (11.5-15.5); WBC 8.9 k/uL (3.8-10.6)
[2019-12-27 07:09] LABS: HGB 5.8 gm/dL (13.0-17.5)
[2019-12-27 07:10] LABS: HCT 17.8 % (39.0-53.0)
[2019-12-27] MEDS ORDERED: SODIUM CHLORIDE 0.9% 500 ML 500 ML IV ONE (07:28)
[2019-12-27 07:39] LABS: Glucose,Whole Blood 141 mg/dL (75-99)
[2019-12-27] MEDS: DOCUSATE 100 MG CAP PO SCH ×2 (07:54→20:40)
[2019-12-27] MEDS: TORSEMIDE 20 MG TAB PO SCH ×2 (07:54→21:03)
[2019-12-27] MEDS: DULoxetine HCL 30 MG CAPSULE.DR PO SCH (07:54)
[2019-12-27] MEDS: MULTIVITAMINS, THERA 1 EACH TAB PO SCH (07:54)
[2019-12-27] MEDS: SACUBITRIL/VALSARTAN 24 MG-26 MG TABLET PO SCH ×2 (07:55→21:03)
[2019-12-27] MEDS: HYDROCORTISONE 10 MG TAB PO SCH ×2 (07:55→21:03)
[2019-12-27] MEDS: SODIUM CHLORIDE 0.9% 1,000 ML IV SCH ×2 (09:13→21:05)
[2019-12-27 09:56] LABS: African American GFR (CKD) 45.8 (60.0-200.0); BUN/Creat Ratio 14.38 Ratio (12.00-20.00); Calcium 7.9 mg/dL (8.7-10.3); Carbon Dioxide 27.9 mmol/L (21.6-31.8); Chloride 104 mmol/L (96-109); Glucose 129 mg/dL (70-110); Non-African American GFR(CKD) 39.5 (60.0-200.0); Potassium 4.2 mmol/L (3.5-5.5); Sodium 139 mmol/L (135-145)
--- NOTE | 2019-12-27 10:08 | P.PN ---
Subjective Progress Note Date: 12/27/19 HISTORY OF PRESENT ILLNESS 84-year-old male one of my office patient was morbidly obese with history of CAD, valvular heart disease, obstructive sleep apnea, history of prostate cancer post radiation with history of radiation cystitis who had recurrent UTI with ESBL infection and recurrent hematuria who has been having significant bloody urine for the last few weeks. Patient had several visits to the emergency room with blood clot blocking his catheter as well. Patient was seen Dr. Buckley and scheduled for elective cystoscopy with cauterization and fulguration of bleeders . Had this procedure done today and had Ortiz catheter with flushing on going through the night. Patient is doing well otherwise. 12/25: Patient utilize CPAP during the night. He states he had some difficulty with clotting in the Ortiz catheter during the night with increased abdominal pressure which is currently resolved. He continues to complain of soreness in the left eye with. periorbital edema. He has been afebrile, heart rate 80, blood pressure 129/74, pulse ox 94%. Repeat blood work reveals WBC 14.5, hemoglobin 7, platelet count 231. Hemoglobin prior to surgery was 9.6 and basel ine is around 10. Blood sugars running between 155 and 213. Urology is monitoring hematuria and will determine if patient requires repeat cystoscopy under anesthesia with cautery for control of hematuria. Patient is eating 50- 75% of meals. Incentive spirometry will be added. 12/26: Hemoglobin this morning is at 5.8 and patient has had continued bleeding and clots from the Ortiz. Nursing states Ortiz was irrigated every 4 hours during the night. Urology has ordered 2 units packed RBCs to be transfused. CBC ordered for every 8 hours. Patient's blood pressures on a soft side and IV fluid bolus of 500 ML's ordered. Patient will be transferred to the cardiac stepdown unit. Patient may require repeat cystoscopy and cautery. Noted that urology has made the patient nothing by mouth. Patient denies any shortness of breath at time of evaluation. He is on a CPAP and has been utilizing through the night. Creatinine 1.6. Blood sugars running between 129 and 148. REVIEW OF SYSTEMS CONSTITUTIONAL: Well-developed no acute respiratory distress. Denies fever Merly denies chills. EYES: No icterus sclerae, no conjunctivitis. EARS, NOSE, MOUTH, THROAT, and FACE: No sore throat, lymphadenopathy, carotid bruits or deformity. RESPIRATORY: No SOB cough or wheezes. CARDIOVASCULAR: No CP, Palpitation, PND, Orthopnea, or angina. GASTROINTESTINAL: No Abd pain, Nausea or vomiting, no Diarrhea or constipation, No GI Bleed, no distention or masses. GENITOURINARY: Hematuria with recurrent bleeding recurrent infection with history of prostate cancer. INTEGUMENT/BREAST: Negative for any muscular injury with mild osteoarthritis.. HEMATOLOGIC/LYMPHATIC: Negative for bleed or purpura. MUSCULOSKELTAL: Negative for Myalgia or arthralgia. Recurrent cellulitis of the lower extremity with significant edema. NEURLOGICAL: No LOC, Sz or syncope, blurred vision dizziness or abnormality.. BEHAVIORAL/PSYCH: Negative. ENDOCRINE: Negative. PHYSICAL EXAMINATION General Appearance: Alert, cooperative, no distress, appears stated age. Resting in bed and appears to be comfortable. Neck HEENT: Supple, no lymphadenopathy, no thyroid enlargement, no carotid bruits. Lungs: Clear to auscultation without crackles or wheezes no rhonchi, no deformity. Chest Wall: Chest wall normal expansion with deep inspiration no tenderness and no deformity was found on exam, no costochondral pain or discomfort. Heart: Irregular rate and rhythm, S1, S2, positive S3 positive systolic murmur. . Back: Symmetric, no curvature, ROM normal, no CVA tenderness. Abdomen: Soft, non-tender, bowel sounds active all four quadrants, no masses, no organomegaly. Ortiz catheter with sanguinous eturn. Extremities: Extremities normal, atraumatic, slight edema of the lower extremity of mild discoloration from the knee down with decreased pulses bilaterally. Pulses: Decrease and symmetric bilaterally. Skin: Skin color, texture, tugor normal, no rashes or lesions. Neurologic: Alert oriented x3 cranial nerves II through XII intact, no motor deficit, no abnormal balance or gait. ASSESSMENT AND PLAN 1 gross hematuria: Post cystoscopy, evacuation of clots and fulguration of bleeders. Ortiz catheter being irrigated and continued bleeding is noted with drop in hemoglobin. 2 atherosclerotic heart disease: Post bypass surgery in the past has been on medical management doing well seen cardiology regular basis. 3 type 2 diabetes: Patient has been on Janumet continue Accu-Chek with sliding scales coverage. 4 hyperlipidemia: Has been on Crestor 10 mg a day. 5 severe cardiomyopathy: Has been on interest to along with Demadex. 6 chronic neuropathy: Has been on gabapentin. 7 acute blood loss anemia due to hematuria with chronic iron deficiency anemia. Continue oral iron. Transfused 2 units packed RBCs. His CBC ordered for every 8 hours. 8 overactive bladder: Has been on Myrbetriq 50 mg daily. 9 recurrent depression: On Cymbalta 30 mg daily. 10 generalized gout: With no flareup lately doing much better on allopurinol 300 milligrams every other day. 11 acute kidney injury with chronic kidney disease stage III 12 GI prophylaxis: Patient will be on Pepcid 20 mg daily. 13 DVT prophylaxis: Knee-high ANGELINA hose and Venodyne boots. CODE STATUS: DO NOT RESUSCITATE. DISCHARGE PLAN Most likely home with home care once stabilized Impression and plan of care have been directed as dictated by the signing physician. Amrita Núñez nurse practitioner acting as scribe for signing byron quintana. Objective - Vital Signs Vital signs: Vital Signs Temp 98.4 F 12/27/19 07:00 Pulse 57 L 12/27/19 07:00 Resp 20 12/27/19 07:00 BP 93/54 12/27/19 07:00 Pulse Ox 93 L 12/27/19 07:00 Intake & Output 12/26/19 12/27/19 12/27/19 18:59 06:59 18:59 Intake Total 780 200 Output Total 1800 1600 Balance -1020 -1400 Intake: Intake, IV Titration 240 Amount Sodium Chloride 0.9% 1, 240 000 ml @ 75 mls/hr IV . [id number] [facility] Rx#:[id number] Oral 540 200 Output: Urine 1800 1600 Other: Voiding Method Indwelling Catheter Indwelling Catheter # Voids 1 - Labs CBC & Chem 7: 12/27/19 06:35 12/27/19 06:35 Labs: Abnormal Lab Results - Last 24 Hours (Table) 12/26/19 12/26/19 12/26/19 Range/Units 11:59 16:40 20:48 RBC (4.30-5.90) m/uL Hgb (13.0-17.5) gm/dL Hct (39.0-53.0) % RDW (11.5-15.5) % POC Glucose (mg/dL) 178 H 144 H 148 H (75-99) mg/dL Crossmatch 12/27/19 12/27/19 12/27/19 Range/Units 06:35 07:02 07:26 RBC 1.86 L (4.30-5.90) m/uL Hgb 5.8 L* (13.0-17.5) gm/dL Hct 17.8 L* (39.0-53.0) % RDW 16.2 H (11.5-15.5) % POC Glucose (mg/dL) 141 H (75-99) mg/dL Crossmatch See Detail
--- NOTE | 2019-12-27 11:23 | P.PN ---
Progress Note - Text Progress Note Date: 12/27/19 The patient continues to have gross hematuria and has repeatedly included his catheter with clots. His hemoglobin was 5.8 this morning and he will be given 2 units of packed red blood cells. He has been transferred to telemetry but remains stable. Cystoscopy under anesthesia and evacuation of clots and cautery will be set up for later today.
[2019-12-27 12:15] LABS: Glucose,Whole Blood 139 mg/dL (75-99)
[2019-12-27 15:56] LABS: HCT 22.1 % (39.0-53.0); Hypochromasia Slight; MCH 31.4 pg (25.0-35.0); MCHC 33.6 g/dL (31.0-37.0); MCV 93.6 fL (80.0-100.0); Mean Platelet Volume 7.8; Platelet Count 226 k/uL (150-450); Poikilocytosis Slight; RBC 2.37 m/uL (4.30-5.90); RDW 15.9 % (11.5-15.5); WBC 10.3 k/uL (3.8-10.6)
[2019-12-27 16:04] LABS: HGB 7.4 gm/dL (13.0-17.5)
[2019-12-27 16:05] LABS: Total Bilirubin 0.6 mg/dL (0.2-1.3); Total Protein 5.9 g/dL (6.3-8.2)
[2019-12-27 16:24] LABS: Glucose,Whole Blood 115 mg/dL (75-99)
[2019-12-27] MEDS ORDERED: IV FLUID CONTINUATION 400 ML IV ONE (17:01)
[2019-12-27] MEDS ORDERED: PROPOFOL 10 MG/ML 20 ML VIAL IV ONE (17:41)
[2019-12-27] MEDS ORDERED: PHENYLEPHRINE-0.9% NACL SYG 1 MG/10 ML SYRINGE ONE (17:41)
[2019-12-27] MEDS ORDERED: LIDOCAINE 1% INJ 10MG/ML (20 ML MDV) ONE (17:41)
[2019-12-27] MEDS ORDERED: fentaNYL (PF) 50 MCG/ML 2 ML AMP ONE (17:41)
[2019-12-27] MEDS ORDERED: SUCCINYLCHOLINE CHLORIDE 100 MG/5 ML SYR IV ONE (17:41)
--- NOTE | 2019-12-27 18:42 | P.OP ---
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 He developed clot urinary retention and multiple clots were irrigated from his bladder and cautery of bleeding vessels were performed by Dr. Buckley on 12/24. Unfortunately he has continued to bleed actively and has required 3 units of packed red blood cells. Repeat cystoscopy with evacuation of blood clots and cautery is planned. Description of Procedure: The patient was taken the operating suite where adequate general anesthesia via orotracheal intubation was instituted. He was placed in the dorsal lithotomy position with his legs suspended from padded Domo stirrups. Pneumatic compression stockings were applied to the lower legs. The patient's Ortiz catheter was removed. The genitalia was prepped with Betadine solution and draped in a sterile fashion. The penile and prostatic urethra were traversed under direct vision using the 22-Syriac cystoscope sheath and 30 lens. The anterior and prostatic urethra were unremarkable. Clot was present within the bladder and was irrigated from it using the Ellik evacuator. 4 or 5 ounces was removed. The bladder was examined. There was evidence of previous cautery at the bladder neck primarily posteriorly between 3:00 and 9:00. There was minimal oozing at the bladder neck which may have been from introduction of the cystoscope and this was controlled using the Bugbee electrode. There appeared to be an active bleeding vessel just inside the bladder neck at 11:00. This was eventually located and cauterized. At the completion of the procedure the urine was clear. The cystoscope was withdrawn. A 20-Syriac Ortiz catheter was inserted and left to gravity drainage. The patient tolerated procedure well and left the operating room awake and in satisfactory condition. Blood loss during the procedure was less than 5 mL.
[2019-12-27] MEDS ORDERED: FUROSEMIDE 10 MG/ML 4 ML VIAL IV ONE (18:45)
[2019-12-27 18:55] LABS: Glucose,Whole Blood 131 mg/dL (75-99)
[2019-12-27] MEDS ORDERED: HYDROmorphone 0.5 MG/0.5 ML SYRINGE IVP ONE (19:20)
[2019-12-27 20:27] LABS: Glucose,Whole Blood 118 mg/dL (75-99)
[2019-12-27] MEDS: metFORMIN 500 MG TAB PO SCH (20:40)
[2019-12-27] MEDS: LINAGLIPTIN 5 MG TABLET PO SCH (20:40)
[2019-12-27] MEDS: GABAPENTIN 300 MG CAP PO SCH (20:40)
[2019-12-27] MEDS: ATORVASTATIN 20 MG TAB PO SCH (20:40)
[2019-12-27 23:28] LABS: Anisocytosis Slight; HGB 8.4 gm/dL (13.0-17.5); Hypochromasia Slight; MCH 29.8 pg (25.0-35.0); MCHC 33.6 g/dL (31.0-37.0); MCV 88.8 fL (80.0-100.0); Mean Platelet Volume 8.5; Platelet Count 209 k/uL (150-450); Poikilocytosis Slight; RBC 2.82 m/uL (4.30-5.90); RDW 16.4 % (11.5-15.5); WBC 13.5 k/uL (3.8-10.6)
[2019-12-28 06:31] LABS: Glucose,Whole Blood 123 mg/dL (75-99)
[2019-12-28 06:51] LABS: Anisocytosis Slight; HCT 23.8 % (39.0-53.0); HGB 7.8 gm/dL (13.0-17.5); Hypochromasia Slight; MCH 29.4 pg (25.0-35.0); MCHC 32.7 g/dL (31.0-37.0); MCV 89.9 fL (80.0-100.0); Mean Platelet Volume 8.5; Platelet Count 206 k/uL (150-450); Poikilocytosis Slight; RBC 2.65 m/uL (4.30-5.90); RDW 16.4 % (11.5-15.5); WBC 10.1 k/uL (3.8-10.6)
[2019-12-28 07:00] LABS: Calcium 7.5 mg/dL (8.4-10.2); Magnesium 1.8 mg/dL (1.6-2.3); Potassium 3.8 mmol/L (3.5-5.1)
--- NOTE | 2019-12-28 07:53 | P.PN ---
Progress Note - Text Progress Note Date: 12/28/19 The patient is afebrile and hemodynamically stable. He has no pain. His urine has remained clear since his surgery last night. Hemoglobin this morning is 7.8. The patient will most likely be discharged later today. If his urine remains clear through this morning he will probably be discharged without the catheter.
[2019-12-28] MEDS: DULoxetine HCL 30 MG CAPSULE.DR PO SCH (07:58)
[2019-12-28] MEDS: DOCUSATE 100 MG CAP PO SCH ×2 (07:59→20:21)
[2019-12-28] MEDS: SACUBITRIL/VALSARTAN 24 MG-26 MG TABLET PO SCH ×2 (07:59→20:21)
[2019-12-28] MEDS: allopurinoL 300 MG TAB PO SCH (07:59)
[2019-12-28] MEDS: HYDROCORTISONE 10 MG TAB PO SCH ×2 (07:59→20:21)
[2019-12-28] MEDS: MULTIVITAMINS, THERA 1 EACH TAB PO SCH (07:59)
[2019-12-28] MEDS: TORSEMIDE 20 MG TAB PO SCH ×2 (07:59→20:21)
[2019-12-28] MEDS: SODIUM CHLORIDE 0.9% 1,000 ML IV SCH ×2 (11:41→20:23)
[2019-12-28] MEDS: carvediloL 6.25 MG TAB PO SCH ×2 (11:42→16:36)
[2019-12-28 11:58] LABS: Glucose,Whole Blood 116 mg/dL (75-99)
--- NOTE | 2019-12-28 12:20 | P.PN ---
Subjective Progress Note Date: 12/28/19 HISTORY OF PRESENT ILLNESS 84-year-old male one of my office patient was morbidly obese with history of CAD, valvular heart disease, obstructive sleep apnea, history of prostate cancer post radiation with history of radiation cystitis who had recurrent UTI with ESBL infection and recurrent hematuria who has been having significant bloody urine for the last few weeks. Patient had several visits to the emergency room with blood clot blocking his catheter as well. Patient was seen Dr. Buckley and scheduled for elective cystoscopy with cauterization and fulguration of bleeders . Had this procedure done today and had Ortiz catheter with flushing on going through the night. Patient is doing well otherwise. 12/25: Patient utilize CPAP during the night. He states he had some difficulty with clotting in the Ortiz catheter during the night with increased abdominal pressure which is currently resolved. He continues to complain of soreness in the left eye with. periorbital edema. He has been afebrile, heart rate 80, blood pressure 129/74, pulse ox 94%. Repeat blood work reveals WBC 14.5, hemoglobin 7, platelet count 231. Hemoglobin prior to surgery was 9.6 and basel ine is around 10. Blood sugars running between 155 and 213. Urology is monitoring hematuria and will determine if patient requires repeat cystoscopy under anesthesia with cautery for control of hematuria. Patient is eating 50- 75% of meals. Incentive spirometry will be added. 12/26: Hemoglobin this morning is at 5.8 and patient has had continued bleeding and clots from the Ortiz. Nursing states Ortiz was irrigated every 4 hours during the night. Urology has ordered 2 units packed RBCs to be transfused. CBC ordered for every 8 hours. Patient's blood pressures on a soft side and IV fluid bolus of 500 ML's ordered. Patient will be transferred to the cardiac stepdown unit. Patient may require repeat cystoscopy and cautery. Noted that urology has made the patient nothing by mouth. Patient denies any shortness of breath at time of evaluation. He is on a CPAP and has been utilizing through the night. Creatinine 1.6. Blood sugars running between 129 and 148. 12/27: Yesterday, patient went back to or for cystoscopy with evacuation of blood clots and cautery of bleeding vessels. He is seen today on a cardiac stepdown unit. Ortiz catheter is clear urine with no hematuria or blood clots. Patient is status post 3 units of packed RBCs. Repeat hemoglobin this morning is at 7.8 , BUN 21 creatinine 1.47. Patient still is reported that he had had an episode of 15 beat V. tach and cardiology consult added. Anticipate the patient will be ready for discharge over the weekend. REVIEW OF SYSTEMS CONSTITUTIONAL: Well-developed no acute respiratory distress. Denies fever Merly denies chills. EYES: No icterus sclerae, no conjunctivitis. EARS, NOSE, MOUTH, THROAT, and FACE: No sore throat, lymphadenopathy, carotid bruits or deformity. RESPIRATORY: No SOB cough or wheezes. CARDIOVASCULAR: No CP, Palpitation, PND, Orthopnea, or angina. GASTROINTESTINAL: No Abd pain, Nausea or vomiting, no Diarrhea or constipation, No GI Bleed, no distention or masses. GENITOURINARY: No Hematuria with history of prostate cancer. INTEGUMENT/BREAST: Negative for any muscular injury with mild osteoarthritis. HEMATOLOGIC/LYMPHATIC: Negative for bleed or purpura. MUSCULOSKELTAL: Negative for Myalgia or arthralgia. Recurrent cellulitis of the lower extremity with significant edema. NEURLOGICAL: No LOC, Sz or syncope, blurred vision dizziness or abnormality. BEHAVIORAL/PSYCH: Negative. ENDOCRINE: Negative. PHYSICAL EXAMINATION General Appearance: Alert, cooperative, no distress, appears stated age. Resting in a recliner and appears to be comfortable. Neck HEENT: Supple, no lymphadenopathy, no thyroid enlargement, no carotid bruits. Lungs: Clear to auscultation without crackles or wheezes no rhonchi, no defo rmity. Chest Wall: Chest wall normal expansion with deep inspiration no tenderness and no deformity was found on exam, no costochondral pain or discomfort. Heart: Irregular rate and rhythm, S1, S2, positive S3 positive systolic murmur. . Back: Symmetric, no curvature, ROM normal, no CVA tenderness. Abdomen: Soft, non-tender, bowel sounds active all four quadrants, no masses, no organomegaly. Ortiz catheter with clear roam return. Extremities: Extremities normal, atraumatic, slight edema of the lower extremity of mild discoloration from the knee down with decreased pulses bilaterally. Pulses: Decrease and symmetric bilaterally. Skin: Skin color, texture, tugor normal, no rashes or lesions. Neurologic: Alert oriented x3 cranial nerves II through XII intact, no motor deficit, no abnormal balance or gait. ASSESSMENT AND PLAN 1 gross hematuria: Post cystoscopy, evacuation of clots and fulguration of bleeders. Second cystoscopy with evacuation of blood clots and cautery of bleeding vessels completed on December 26. 2 atherosclerotic heart disease: Post bypass surgery in the past has been on medical management doing well seen cardiology regular basis. 3 type 2 diabetes: Patient has been on Janumet continue Accu-Chek with sliding scales coverage. 4 hyperlipidemia: Has been on Crestor 10 mg a day. 5 severe cardiomyopathy: Continue Coreg, Entresto. 6 chronic neuropathy: Has been on gabapentin. 7 acute blood loss anemia due to hematuria with chronic iron deficiency anemia. Continue oral iron. Status post transfusion of total 3 units packed RBCs. Repeat CBC in the morning. 8 overactive bladder: Has been on Myrbetriq 50 mg daily. 9 recurrent depression: On Cymbalta 30 mg daily. 10 generalized gout: With no flareup lately doing much better on allopurinol 300 milligrams every other day. 11 acute kidney injury with chronic kidney disease stage III 12 GI prophylaxis: Patient will be on Pepcid 20 mg daily. 13 DVT prophylaxis: Knee-high ANGELINA hose and Venodyne boots. 14 episode of V. tach. Cardiology consult added. CODE STATUS: DO NOT RESUSCITATE. DISCHARGE PLAN Most likely home over the weekend. Patient declined home care. Impression and plan of care have been directed as dictated by the signing physician. Amrita Núñez nurse practitioner acting as scribe for signing physician. Objective - Vital Signs Vital signs: Vital Signs Temp 98.6 F 12/28/19 11:25 Pulse 77 12/28/19 11:25 Resp 16 12/28/19 11:25 BP 133/69 12/28/19 11:25 Pulse Ox 94 L 12/28/19 11:25 Intake & Output 12/27/19 12/28/19 12/28/19 18:59 06:59 18:59 Intake Total 1829 300 738 Output Total 2004 2500 Balance -175 -2200 738 Weight 148 kg Intake: IV 900 300 620 Invasive Line 1 10 Invasive Line 2 40 20 Sodium Chloride 0.9% 1, 600 300 600 000 ml @ 75 mls/hr IV . [id number] [facility] Rx#:[id number] Oral 118 Blood Product 930 Rc As-1 Unit 310 [id number] Rc As-1 Unit 310 [id number] Rc As-1 Unit 310 [id number] Output: Urine 2000 2500 3-way Urethral 1850 Estimated Blood Loss 5 Other: Voiding Method Indwelling Catheter Indwelling Catheter Indwelling Catheter - Labs CBC & Chem 7: 12/28/19 06:25 12/28/19 06:25 Labs: Abnormal Lab Results - Last 24 Hours (Table) 12/27/19 12/27/19 12/27/19 Range/Units 07:26 12:13 15:35 WBC (3.8-10.6) k/uL RBC 2.37 L (4.30-5.90) m/uL Hgb 7.4 L D (13.0-17.5) gm/dL Hct 22.1 L (39.0-53.0) % RDW 15.9 H (11.5-15.5) % BUN (9-20) mg/dL Creatinine (0.66-1.25) mg/dL Glucose (74-99) mg/dL POC Glucose (mg/dL) 139 H (75-99) mg/dL Calcium (8.4-10.2) mg/dL Total Protein (6.3-8.2) g/dL Albumin (3.5-5.0) g/dL Crossmatch See Detail 12/27/19 12/27/19 12/27/19 Range/Units 15:35 16:22 18:54 WBC (3.8-10.6) k/uL RBC (4.30-5.90) m/uL Hgb (13.0-17.5) gm/dL Hct (39.0-53.0) % RDW (11.5-15.5) % BUN (9-20) mg/dL Creatinine (0.66-1.25) mg/dL Glucose (74-99) mg/dL POC Glucose (mg/dL) 115 H 131 H (75-99) mg/dL Calcium (8.4-10.2) mg/dL Total Protein 5.9 L (6.3-8.2) g/dL Albumin 3.0 L (3.5-5.0) g/dL Crossmatch 12/27/19 12/27/19 12/28/19 Range/Units 20:26 22:45 06:25 WBC 13.5 H (3.8-10.6) k/uL RBC 2.82 L 2.65 L (4.30-5.90) m/uL Hgb 8.4 L 7.8 L (13.0-17.5) gm/dL Hct 25.0 L 23.8 L (39.0-53.0) % RDW 16.4 H 16.4 H (11.5-15.5) % BUN (9-20) mg/dL Creatinine (0.66-1.25) mg/dL Glucose (74-99) mg/dL POC Glucose (mg/dL) 118 H (75-99) mg/dL Calcium (8.4-10.2) mg/dL Total Protein (6.3-8.2) g/dL Albumin (3.5-5.0) g/dL Crossmatch 12/28/19 12/28/19 Range/Units 06:25 06:30 WBC (3.8-10.6) k/uL RBC (4.30-5.90) m/uL Hgb (13.0-17.5) gm/dL Hct (39.0-53.0) % RDW (11.5-15.5) % BUN 21 H (9-20) mg/dL Creatinine 1.47 H (0.66-1.25) mg/dL Glucose 119 H (74-99) mg/dL POC Glucose (mg/dL) 123 H (75-99) mg/dL Calcium 7.5 L (8.4-10.2) mg/dL Total Protein (6.3-8.2) g/dL Albumin (3.5-5.0) g/dL Crossmatch
--- NOTE | 2019-12-28 13:03 | ECHOF ---
Referral Reason:lv function, v tach MEASUREMENTS -------- HEIGHT: 177.8 cm WEIGHT: 147.9 kg BP: 118/65 RVIDd: 3.2 cm (< 3.3) IVSd: 1.6 cm (0.6 - 1.1) LVIDd: 5.7 cm (3.9 - 5.3) LVPWd: 1.4 cm (0.6 - 1.1) IVSs: 2.0 cm LVIDs: 3.8 cm LVPWs: 1.9 cm LA Diam: 4.3 cm (2.7 - 3.8) Ao Diam: 4.3 cm (2.0 - 3.7) AV Cusp: 2.4 cm (1.5 - 2.6) MV EXCURSION: 19.783 mm (> 18.000) MV EF SLOPE: 145 mm/s (70 - 150) EPSS: 1.6 cm AV maxP.26 mmHg AV meanP.38 mmHg RAP: 5.00 mmHg RVSP: 35.99 mmHg FINDINGS -------- This was a technically difficult study with suboptimal views. The left ventricular size is normal. There is moderate concentric left ventricular hypertrophy. O verall left ventricular systolic function is moderately impaired with, an EF between 35 - 40 %. Mid inferior LV wall motion is hypokinetic. The right ventricle is normal in size. The left atrium is moderately dilated. The right atrium is normal in size. Interatrial and interventricular septum intact. There is mild aortic valve sclerosis. Peak/mean gradient across the Aortic Valve is 37.26mmHg / 21. 38mmHg. 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 Mild mitral annular calcification present. Mild mitral regurgitation is present. Mild tricuspid regurgitation present. There is mild pulmonary hypertension. The right ventricular systolic pressure, as measured by Doppler, is 35.99mmHg. The pulmonic valve was not well visualized. The aortic root is dilated measuring 4.3cm. Normal inferior vena cava with normal inspiratory collapse consistent with estimated right atrial pre ssure of 5 mmHg. There is no pericardial effusion. Lumason used CONCLUSIONS -------- 1. This was a technically difficult study with suboptimal views. 2. The left ventricular size is normal. 3. There is moderate concentric left ventricular hypertrophy. 4. Overall left ventricular systolic function is moderately impaired with, an EF between 35 - 40 %. 5. Mid inferior LV wall motion is hypokinetic. 6. The left atrium is moderately dilated. 7. Lumason used 8. There is mild aortic valve sclerosis. 9. Peak/mean gradient across the Aortic Valve is 37.26mmHg / 21.38mmHg. 10. 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 11. Mild mitral annular calcification present. 12. Mild mitral regurgitation is present. 13. Mild tricuspid regurgitation present. 14. There is mild pulmonary hypertension. 15. The right ventricular systolic pressure, as measured by Doppler, is 35.99mmHg. 16. The aortic root is dilated measuring 4.3cm. 17. There is no pericardial effusion. ALKYLATION OPERATOR: Angela Cuellar RDCS
[2019-12-28 13:36] LABS: Hemoglobin A1C 6.4 % (4.0-6.0)
--- NOTE | 2019-12-28 14:02 | P.CRDCN ---
<Alondra Olivas - Last Filed: 12/28/19 13:59> History of Present Illness Consult date: 12/28/19 History of present illness: CHIEF COMPLAINT: Vtach HISTORY OF PRESENT ILLNESS: This is a 84-year old male with a past medical history significant for coronary artery disease, diabetes mellitus, hypertension, hyperlipidemia, and prostate cancer. Patient follows in the office with Dr. Corrigan. We have been asked to see the patient in consultation for [facility]. Patient underwent cystoscopy with evacuation of clots on 12/25/2019. He underwent repeat cysto with evacuation of blood clots and cauterization of bleeding vessels. Patient examined at the bedside with Dr. Gant. Patient currently denies chest pain or pressure. He denies shortness of breath. Denies dizziness or lightheadedness. Patient reports a history of CABG 3 with an aortic valve replacement. Patient had an echocardiogram performed in April 2018 revealing ejection fraction of 30 of 35%, moderate mitral regurgitation, and LV wall hypokinesis. DIAGNOSTICS: EKG reveals sinus rhythm with PVCs Laboratory data: WBC 10.1. Hemoglobin 7.8. Platelet count 206. Sodium 137. Potassium 3.8. BUN 21. Creatinine 1.47. Magnesium 1.8. Current home cardiac medications include Demadex 20 mg twice a day, and trazodone 1 tab twice a day, Crestor 10 mg daily, and aspirin 81 mg daily REVIEW OF SYSTEMS: At the time of my exam: CONSTITUTIONAL: Denies fever or chills. HEENT: Denies blurred vision, vision changes, or eye pain. Denies hemoptysis CARDIOVASCULAR: Denies chest pain, orthopnea, PND or palpitations RESPIRATORY: No shortness of breath. GASTROINTESTINAL: Denies abdominal pain. Denies nausea or vomiting. HEMATOLOGIC: Denies bleeding disorders. GENITOURINARY: Denies any blood in urine. SKIN: Denies pruitis. Denies rash. PHYSICAL EXAM: VITAL SIGNS: Reviewed. GENERAL: Well-developed in no acute distress. HEENT: Head is normocephalic. Pupils are equal, round. Sclerae anicteric. Mucous membranes of the mouth are moist. Neck supple. No JVD or thyromegaly LUNGS: Respirations even and unlabored. Lungs essentially clear to auscultation bilaterally. HEART: Regular rate and rhythm. S1 and S2 heard. ABDOMEN: Soft. Nondistended. Nontender. EXTREMITIES: Normal range of motion. No clubbing or cyanosis. Peripheral pulses intact. No lower extremity edema NEUROLOGIC: Awake and alert. Oriented x 3. ASSESSMENT: Ventricular tachycardia versus SVT with aberrancy Gross hematuria, status post cystoscopy History of coronary artery disease with previous CABG 3 and aortic valve replacement History of ischemic cardiomyopathy, EF 30-35% Hypertension Hyperlipidemia Diabetes mellitus, type II Obesity: BMI 46.8 PLAN: Continue telemetry monitoring Obtain 2D echo to assess cardiac structure and function Begin Coreg 6.25 mg twice a day Possible AICD if patients EF remains significantly decreased. May be performed on an outpatient basis. Nurse practitioner note has been reviewed by physician. Signing provider agrees with the documented findings, assessment, and plan of care. 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 Anemia with blood transfusions.02/25/2018 WAS IN [facility] FOR SEPSIS UTI ECOLI INFECTION. History of Any Multi-Drug Resistant Organisms: ESBL Date of last positivie culture/infection: 02/25/18 MDRO Source:: urine, blood esbl Past Surgical History: Cardiac Valve Replacement, Coronary Bypass/CABG, Heart Catheterization Additional Past Surgical History / Comment(s): 03/02/17 cystoscopy/evacuation clots and fulguration bladder, 01/20/12 CABG-3 vessel with aortic valve. Past Anesthesia/Blood Transfusion Reactions: No Reported Reaction Past Psychological History: No Psychological Hx Reported Additional Psychological History / Comment(s): . Smoking Status: Former smoker Past Alcohol Use History: None Reported Additional Past Alcohol Use History / Comment(s): quit smoking 1982 was a smoker of one pack per day for approximately 25 years. Past Drug Use History: None Reported - Past Family History Mother Family Medical History: Myocardial Infarction ([place]) Additional Family Medical History / Comment(s): Mother at age 67 from a myocardial infarction. Father Family Medical History: Diabetes Mellitus, Myocardial Infarction ([place]) Additional Family Medical History / Comment(s): Father from complications from diabetes mellitus that was uncontrolled with frequent episodes of coma. He also has history of myocardial infarction. The patient has no children and no siblings. Medications and Allergies Home Medications Medication Instructions Recorded Confirmed Type Docusate [Colace] 100 mg PO BID 03/01/17 12/25/19 History Glucosam/Donnie-Msm1/C/Pardeep/Bosw 1 tab PO HS 03/01/17 12/25/19 History [Glucosamine-Chondroitin Tablet] Multivitamins, Thera [Multivitamin 1 tab PO QAM 03/01/17 12/25/19 History (formulary)] allopurinoL [Zyloprim] 300 mg PO Q48H 03/01/17 12/25/19 History Mirabegron [Myrbetriq] 50 mg PO QAM 06/27/17 12/25/19 History sitaGLIPtin PHOS/metFORMIN HCL 1 tab PO HS 06/27/17 12/25/19 History [Janumet 50-500 mg Tablet] Calcium Carbonate/Vitamin D3 1 tab PO QAM 10/11/17 12/25/19 History [Calcium 600-Vit D3 200 Tablet] Ferrous Sulfate [Iron (65 MG 325 mg PO QAM 02/25/18 12/25/19 History Elemental)] Gabapentin [Neurontin] 300 mg PO HS #0 03/06/18 12/25/19 Rx Aspirin [Baron Aspirin EC] 81 mg PO Q48H 05/14/18 12/25/19 History Hydrocortisone [Cortef] 10 mg PO BID #60 tablet 05/18/18 12/25/19 Rx Sacubitril/Valsartan [Entresto 24 1 each PO BID #60 tablet 05/18/18 12/25/19 Rx mg-26 mg Tablet] Celecoxib [CeleBREX] 200 mg PO HS 12/24/19 12/25/19 History Cranberry 300 mg PO HS 12/24/19 12/25/19 History DULoxetine HCL [Cymbalta] 30 mg PO QAM 12/24/19 12/25/19 History Nitrofurantoin Macrocrystal 100 mg PO QAM 12/24/19 12/25/19 History [Macrodantin] Rosuvastatin [Crestor] 10 mg PO HS 12/24/19 12/25/19 History Torsemide [Demadex] 20 mg PO BID 12/24/19 12/25/19 History Turmeric Root Extract [Turmeric] 500 mg PO QAM 12/24/19 12/25/19 History Allergies Allergy/AdvReac Type Severity Reaction Status Date / Time No Known Allergies Allergy Verified 12/25/19 12:45 Physical Exam Vitals: Vital Signs Temp Pulse Pulse Pulse Resp BP BP 12/28/19 07:54 98.0 F 72 16 118/65 12/28/19 03:51 79 18 12/28/19 03:50 97.6 F 79 18 114/56 12/27/19 23:43 55 L 18 12/27/19 23:41 98.0 F 55 L 18 134/63 12/27/19 20:50 77 18 125/59 12/27/19 20:30 97.9 F 72 18 109/58 12/27/19 19:44 72 18 130/70 12/27/19 19:29 70 16 137/60 12/27/19 19:14 76 16 150/68 12/27/19 18:59 81 16 117/59 12/27/19 18:43 98.8 F 94 16 117/59 12/27/19 17:11 98.5 F 77 20 101/52 12/27/19 17:02 99.3 F 79 20 102/54 12/27/19 16:41 98.6 F 85 16 106/53 12/27/19 16:31 98.6 F 82 16 108/55 12/27/19 15:00 98.5 F 80 16 95/53 12/27/19 14:43 98.2 F 61 14 97/52 12/27/19 13:24 98.3 F 90 16 113/68 12/27/19 12:21 81 16 98/55 12/27/19 11:51 98.4 F 82 16 112/55 12/27/19 11:41 98.3 F 67 16 119/59 12/27/19 11:30 98.2 F 79 16 108/55 Pulse Ox 12/28/19 07:54 97 12/28/19 03:51 12/28/19 03:50 94 L 12/27/19 23:43 12/27/19 23:41 93 L 12/27/19 20:50 98 12/27/19 20:30 97 12/27/19 19:44 96 12/27/19 19:29 96 12/27/19 19:14 95 12/27/19 18:59 97 12/27/19 18:43 97 12/27/19 17:11 96 12/27/19 17:02 98 12/27/19 16:41 98 12/27/19 16:31 97 12/27/19 15:00 94 L 12/27/19 14:43 94 L 12/27/19 13:24 95 12/27/19 12:21 95 12/27/19 11:51 95 12/27/19 11:41 95 12/27/19 11:30 92 L Intake and Output 12/27/19 12/28/19 12/28/19 22:59 06:59 14:59 Intake Total 870 728 Output Total 1955 1400 Balance -1085 -1400 728 Intake: IV 560 610 Invasive Line 2 10 10 Sodium Chloride 0.9% 1, 300 600 000 ml @ 75 mls/hr IV . [id number] Rx#:[id number] Oral 118 Blood Product 310 Rc As-1 Unit 310 [id number] Output: Urine 1950 1400 3-way Urethral 700 Estimated Blood Loss 5 Other: Voiding Method Indwelling Catheter Indwelling Catheter Indwelling Catheter Weight 148 kg Results 12/28/19 06:25 12/28/19 06:25 Cardiac Enzymes 12/27/19 12/27/19 Range/Units 06:35 15:35 AST Not Reportable 44 CBC 12/27/19 12/27/19 12/28/19 Range/Units 15:35 22:45 06:25 WBC 10.3 13.5 H 10.1 (3.8-10.6) k/uL RBC 2.37 L 2.82 L 2.65 L (4.30-5.90) m/uL Hgb 7.4 L D 8.4 L 7.8 L (13.0-17.5) gm/dL Hct 22.1 L 25.0 L 23.8 L (39.0-53.0) % Plt Count 226 209 206 (150-450) k/uL Comprehensive Metabolic Panel 12/27/19 12/27/19 12/28/19 Range/Units 06:35 15:35 06:25 Sodium 137 (137-145) mmol/L Potassium 3.8 (3.5-5.1) mmol/L Chloride 103 (98-107) mmol/L Carbon Dioxide 28 (22-30) mmol/L BUN 21 H (9-20) mg/dL Creatinine 1.47 H (0.66-1.25) mg/dL Glucose 119 H (74-99) mg/dL Calcium 7.5 L (8.4-10.2) mg/dL AST Not Reportable 44 ALT Not Reportable 19 Alkaline Phosphatase Not Reportable 54 Total Protein Not Reportable 5.9 L Albumin Not Reportable 3.0 L Current Medications Generic Name Dose Route Start Last Admin Trade Name Freq PRN Reason Stop Dose Admin Acetaminophen 650 mg 12/25/19 15:54 Acetaminophen Tab 325 Mg Tab PO Q4HR PRN Mild Pain Hydrocodone Bitart/Acetaminophen 1 each 12/25/19 15:54 12/25/19 18:27 Hydrocodone/Apap 5-325mg 1 Each Tab PO 1 each Q4HR PRN Administration Moderate Pain Allopurinol 300 mg 12/26/19 09:00 12/28/19 07:59 Allopurinol 300 Mg Tab PO 300 mg Q48H DELMY Administration Artificial Tears 2 drops 12/25/19 17:52 Artificial Tears-Hypromellose Drops 15 Ml Btl LEFT EYE QID PRN Dry Eye(s) Atorvastatin Calcium 20 mg 12/25/19 21:00 12/27/19 20:40 Atorvastatin 20 Mg Tab PO 20 mg HS DELMY Administration Docusate Sodium 100 mg 12/25/19 21:00 12/28/19 07:59 Docusate 100 Mg Cap PO 100 mg BID DELMY Administration Duloxetine HCl 30 mg 12/26/19 09:00 12/28/19 07:58 Duloxetine Hcl 30 Mg Capsule.Dr PO 30 mg QAM DELMY Administration Gabapentin 300 mg 12/25/19 21:00 12/27/19 20:40 Gabapentin 300 Mg Cap PO 300 mg HS DELMY Administration Hydrocortisone 10 mg 12/25/19 21:00 12/28/19 07:59 Hydrocortisone 10 Mg Tab PO 10 mg BID DELMY Administration Sodium Chloride 1,000 mls @ 75 mls/hr 12/25/19 16:00 12/27/19 21:05 Saline 0.9% IV 75 mls/hr .[id number] DELMY Administration Linagliptin 5 mg 12/25/19 21:00 12/27/19 20:40 Linagliptin 5 Mg Tablet PO 5 mg HS DELMY Administration Metformin HCl 500 mg 12/25/19 21:00 12/27/19 20:40 Metformin 500 Mg Tab PO 500 mg HS DELMY Administration Multivitamins 1 each 12/26/19 09:00 12/28/19 07:59 Multivitamins, Thera 1 Each Tab PO 1 each QAM DELMY Administration Mirabegron [ 50 mg 12/26/19 09:00 12/28/19 07:59 Myrbetriq] 50 Mg Tab PO Not Given .Er.24h QAM DELMY Sacubitril/Valsartan 1 each 12/25/19 21:00 12/28/19 07:59 Sacubitril/Valsartan 24 Mg-26 Mg Tablet PO 1 each BID DELMY Administration Torsemide 20 mg 12/25/19 21:00 12/28/19 07:59 Torsemide 20 Mg Tab PO 20 mg BID DELMY Administration Intake and Output 12/27/19 12/28/19 12/28/19 22:59 06:59 14:59 Intake Total 870 728 Output Total 1955 1400 Balance -1085 -1400 728 Intake: IV 560 610 Invasive Line 2 10 10 Sodium Chloride 0.9% 1, 300 600 000 ml @ 75 mls/hr IV . [id number] [facility] Rx#:[id number] Oral 118 Blood Product 310 Rc As-1 Unit 310 [id number] Output: Urine 1950 1400 3-way Urethral 700 Estimated Blood Loss 5 Other: Voiding Method Indwelling Catheter Indwelling Catheter Indwelling Catheter Weight 148 kg 12/28/19 06:25 12/28/19 06:25 <Yang Gant - Last Filed: 12/28/19 17:09> History of Present Illness History of present illness: Short run of asymptomatic wide complex tachycardia which is somewhat irregular which is more consistent with an SVT with aberancy with rate dependent bundle branch. Patient denies any lightheaded episodes or history of syncope. Will uptitrate his BBlocker as able. If EF remains below 35% however patient would be a candidate for AICD for primary prevention. Yang Gant, DO Physical Exam Vitals: Vital Signs Temp Pulse Pulse Pulse Resp BP BP 12/28/19 11:25 98.6 F 77 16 133/69 12/28/19 07:54 98.0 F 72 16 118/65 12/28/19 03:51 79 18 12/28/19 03:50 97.6 F 79 18 114/56 12/27/19 23:43 55 L 18 12/27/19 23:41 98.0 F 55 L 18 134/63 12/27/19 20:50 77 18 125/59 12/27/19 20:30 97.9 F 72 18 109/58 12/27/19 19:44 72 18 130/70 12/27/19 19:29 70 16 137/60 12/27/19 19:14 76 16 150/68 12/27/19 18:59 81 16 117/59 12/27/19 18:43 98.8 F 94 16 117/59 12/27/19 17:11 98.5 F 77 20 101/52 Pulse Ox 12/28/19 11:25 94 L 12/28/19 07:54 97 12/28/19 03:51 12/28/19 03:50 94 L 12/27/19 23:43 12/27/19 23:41 93 L 12/27/19 20:50 98 12/27/19 20:30 97 12/27/19 19:44 96 12/27/19 19:29 96 12/27/19 19:14 95 12/27/19 18:59 97 12/27/19 18:43 97 12/27/19 17:11 96 Intake and Output 12/28/19 12/28/19 12/28/19 06:59 14:59 22:59 Intake Total 858 10 Output Total 1400 1200 Balance -1400 -342 10 Intake: IV 620 10 Invasive Line 2 20 10 Sodium Chloride 0.9% 1, 600 000 ml @ 75 mls/hr IV . [id number] [facility] Rx#:[id number] Oral 238 Output: Urine 1400 1200 3-way Urethral 600 Other: Voiding Method Indwelling Catheter Indwelling Catheter Urinal Weight 148 kg Results 12/28/19 06:25 12/28/19 06:25 CBC 12/27/19 12/28/19 Range/Units 22:45 06:25 WBC 13.5 H 10.1 (3.8-10.6) k/uL RBC 2.82 L 2.65 L (4.30-5.90) m/uL Hgb 8.4 L 7.8 L (13.0-17.5) gm/dL Hct 25.0 L 23.8 L (39.0-53.0) % Plt Count 209 206 (150-450) k/uL Comprehensive Metabolic Panel 12/28/19 Range/Units 06:25 Sodium 137 (137-145) mmol/L Potassium 3.8 (3.5-5.1) mmol/L Chloride 103 (98-107) mmol/L Carbon Dioxide 28 (22-30) mmol/L BUN 21 H (9-20) mg/dL Creatinine 1.47 H (0.66-1.25) mg/dL Glucose 119 H (74-99) mg/dL Calcium 7.5 L (8.4-10.2) mg/dL Current Medications Generic Name Dose Route Start Last Admin Trade Name Freq PRN Reason Stop Dose Admin Acetaminophen 650 mg 12/25/19 15:54 Acetaminophen Tab 325 Mg Tab PO Q4HR PRN Mild Pain Hydrocodone Bitart/Acetaminophen 1 each 12/25/19 15:54 12/25/19 18:27 Hydrocodone/Apap 5-325mg 1 Each Tab PO 1 each Q4HR PRN Administration Moderate Pain Allopurinol 300 mg 12/26/19 09:00 12/28/19 07:59 Allopurinol 300 Mg Tab PO 300 mg Q48H DELMY Administration Artificial Tears 2 drops 12/25/19 17:52 Artificial Tears-Hypromellose Drops 15 Ml Btl LEFT EYE QID PRN Dry Eye(s) Atorvastatin Calcium 20 mg 12/25/19 21:00 12/27/19 20:40 Atorvastatin 20 Mg Tab PO 20 mg HS DELMY Administration Carvedilol 6.25 mg 12/28/19 10:45 12/28/19 16:36 Carvedilol 6.25 Mg Tab PO 6.25 mg BID-W/MEALS DELMY Administration Docusate Sodium 100 mg 12/25/19 21:00 12/28/19 07:59 Docusate 100 Mg Cap PO 100 mg BID DELMY Administration Duloxetine HCl 30 mg 12/26/19 09:00 12/28/19 07:58 Duloxetine Hcl 30 Mg Capsule.Dr PO 30 mg QAM DELMY Administration Gabapentin 300 mg 12/25/19 21:00 12/27/19 20:40 Gabapentin 300 Mg Cap PO 300 mg HS DELMY Administration Hydrocortisone 10 mg 12/25/19 21:00 12/28/19 07:59 Hydrocortisone 10 Mg Tab PO 10 mg BID DELMY Administration Sodium Chloride 1,000 mls @ 75 mls/hr 12/25/19 16:00 12/28/19 11:41 Saline 0.9% IV 75 mls/hr .[id number] DELMY Administration Linagliptin 5 mg 12/25/19 21:00 12/27/19 20:40 Linagliptin 5 Mg Tablet PO 5 mg HS DELMY Administration Metformin HCl 500 mg 12/25/19 21:00 12/27/19 20:40 Metformin 500 Mg Tab PO 500 mg HS DELMY Administration Multivitamins 1 each 12/26/19 09:00 12/28/19 07:59 Multivitamins, Thera 1 Each Tab PO 1 each QAM DELMY Administration Mirabegron [ 50 mg 12/26/19 09:00 12/28/19 07:59 Myrbetriq] 50 Mg Tab PO Not Given .Er.24h QAM DELYM Sacubitril/Valsartan 1 each 12/25/19 21:00 12/28/19 07:59 Sacubitril/Valsartan 24 Mg-26 Mg Tablet PO 1 each BID DELMY Administration Torsemide 20 mg 12/25/19 21:00 12/28/19 07:59 Torsemide 20 Mg Tab PO 20 mg BID DELMY Administration Intake and Output 12/28/19 12/28/19 12/28/19 06:59 14:59 22:59 Intake Total 858 10 Output Total 1400 1200 Balance -1400 -342 10 Intake: IV 620 10 Invasive Line 2 20 10 Sodium Chloride 0.9% 1, 600 000 ml @ 75 mls/hr IV . [id number] [facility] Rx#:[id number] Oral 238 Output: Urine 1400 1200 3-way Urethral 600 Other: Voiding Method Indwelling Catheter Indwelling Catheter Urinal Weight 148 kg 12/28/19 06:25 12/28/19 06:25
[2019-12-28 17:06] LABS: Glucose,Whole Blood 244 mg/dL (75-99)
[2019-12-28 20:15] LABS: Glucose,Whole Blood 131 mg/dL (75-99)
[2019-12-28] MEDS: LINAGLIPTIN 5 MG TABLET PO SCH (20:21)
[2019-12-28] MEDS: metFORMIN 500 MG TAB PO SCH (20:21)
[2019-12-28] MEDS: GABAPENTIN 300 MG CAP PO SCH (20:21)
[2019-12-28] MEDS: ATORVASTATIN 20 MG TAB PO SCH (20:21)
[2019-12-28 20:48] VITALS: RESP 18
[2019-12-29] MEDS: carvediloL 6.25 MG TAB PO SCH (06:27)
[2019-12-29 06:33] LABS: Glucose,Whole Blood 114 mg/dL (75-99)
[2019-12-29 07:52] LABS: Anisocytosis Slight; Hypochromasia Moderate; MCH 29.7 pg (25.0-35.0); MCV 92.8 fL (80.0-100.0); Mean Platelet Volume 8.3; Platelet Count 182 k/uL (150-450); Poikilocytosis Slight; RBC 2.69 m/uL (4.30-5.90); RDW 16.4 % (11.5-15.5); WBC 7.9 k/uL (3.8-10.6)
[2019-12-29 08:07] LABS: Calcium 7.7 mg/dL (8.4-10.2); Potassium 3.8 mmol/L (3.5-5.1)
[2019-12-29] MEDS: HYDROCORTISONE 10 MG TAB PO SCH (08:35)
[2019-12-29] MEDS: MULTIVITAMINS, THERA 1 EACH TAB PO SCH (08:35)
[2019-12-29] MEDS: TORSEMIDE 20 MG TAB PO SCH (08:35)
[2019-12-29] MEDS: SODIUM CHLORIDE 0.9% 1,000 ML IV SCH (08:35)
[2019-12-29] MEDS: DULoxetine HCL 30 MG CAPSULE.DR PO SCH (08:35)
[2019-12-29] MEDS: DOCUSATE 100 MG CAP PO SCH (08:35)
[2019-12-29] MEDS: SACUBITRIL/VALSARTAN 24 MG-26 MG TABLET PO SCH (08:35)
--- NOTE | 2019-12-29 11:13 | P.DS ---
Providers Date of admission: 12/27/19 07:45 Expected date of discharge: 12/29/19 (Pending cardiology's recommendation) Attending physician: Ramo Buckley Consults: 12/27/19 07:22 Consult Physician Routine Consulting Provider: Alfredo Self Consult Reason/Comments: medical Do you want consulting provider notified?: Already Contacted 12/28/19 08:50 Consult Physician Routine Consulting Provider: Yang Gant Consult Reason/Comments: arrhthymia, reported VT 15 beats yesterday Do you want consulting provider notified?: Yes Primary care physician: Alfredo Aramis [facility] Course: HISTORY OF PRESENT ILLNESS 84-year-old male one of my office patient was morbidly obese with history of CAD, valvular heart disease, obstructive sleep apnea, history of prostate cancer post radiation with history of radiation cystitis who had recurrent UTI with ESBL infection and recurrent hematuria who has been having significant bloody urine for the last few weeks. Patient had several visits to the emergency room with blood clot blocking his catheter as well. Patient was seen Dr. Buckley and scheduled for elective cystoscopy with cauterization and fulguration of bleeders. Had this procedure done today and had Ortiz catheter with flushing on going through the night. Patient is doing well otherwise. 12/25: Patient utilize CPAP during the night. He states he had some difficulty with clotting in the Ortiz catheter during the night with increased abdominal pressure which is currently resolved. He continues to complain of soreness in the left eye with. periorbital edema. He has been afebrile, heart rate 80, blood pressure 129/74, pulse ox 94%. Repeat blood work reveals WBC 14.5, hemoglobin 7, platelet count 231. Hemoglobin prior to surgery was 9.6 and baseline is around 10. Blood sugars running between 155 and 213. Urology is monitoring hematuria and will determine if patient requires repeat cystoscopy under anesthesia with cautery for control of hematuria. Patient is eating 50- 75% of meals. Incentive spirometry will be added. 12/26: Hemoglobin this morning is at 5.8 and patient has had continued bleeding and clots from the Ortiz. Nursing states Ortiz was irrigated every 4 hours during the night. Urology has ordered 2 units packed RBCs to be transfused. CBC ordered for every 8 hours. Patient's blood pressures on a soft side and IV fluid bolus of 500 ML's ordered. Patient will be transferred to the cardiac stepdown unit. Patient may require repeat cystoscopy and cautery. Noted that urology has made the patient nothing by mouth. Patient denies any shortness of breath at time of evaluation. He is on a CPAP and has been utilizing through the night. Creatinine 1.6. Blood sugars running between 129 and 148. 12/27: Yesterday, patient went back to or for cystoscopy with evacuation of blood clots and cautery of bleeding vessels. He is seen today on a cardiac stepdown unit. Ortiz catheter is clear urine with no hematuria or blood clots. Patient is status post 3 units of packed RBCs. Repeat hemoglobin this morning is at 7.8, BUN 21 creatinine 1.47. Patient still is reported that he had had an episode of 15 beat V. tach and cardiology consult added. Anticipate the patient will be ready for discharge over the weekend. 12/28: Patient was seen today resting in bed. Reports he is feeling good and ready to go home today. Vital signs are stable, patient remains afebrile, pulse rate 66, respirations 18, blood pressure 117/57, pulse ox 98% on room air. Hemoglobin stable at 8.0, BUN 21 creatinine 1.46. Plan to discharge patient home today if okay with cardiology, new medications Coreg 6.25 mg twice a day. Echo revealed moderate concentric LVH with moderately impaired EF 35-40% and mild pulmonary hypertension. Patient already has appointment to see Dr. Varela as outpatient on Tuesday, December 30. Discharge diagnosis 1 gross hematuria: Post cystoscopy, evacuation of clots and fulguration of bleeders. 2 atherosclerotic heart disease: 3 type 2 diabetes: 4 hyperlipidemia: 5 severe cardiomyopathy: 6 chronic neuropathy: 7 acute blood loss anemia due to hematuria with chronic iron deficiency anemia. 8 overactive bladder: 9 recurrent depression: 10 generalized gout: 11 acute kidney injury with chronic kidney disease stage III 12 episode of V. tach. Patient Condition at Discharge: Good Plan - Discharge Summary Discharge Rx Participant: Yes New Discharge Prescriptions: New carvediloL [Coreg] 6.25 mg PO BID-W/MEALS #60 tab Continue Glucosam/Donnie-Msm1/C/Pardeep/Bosw [Glucosamine-Chondroitin Tablet] 1 tab PO HS Multivitamins, Thera [Multivitamin (formulary)] 1 tab PO QAM Docusate [Colace] 100 mg PO BID allopurinoL [Zyloprim] 300 mg PO Q48H sitaGLIPtin PHOS/metFORMIN HCL [Janumet 50-500 mg Tablet] 1 tab PO HS Mirabegron [Myrbetriq] 50 mg PO QAM Calcium Carbonate/Vitamin D3 [Calcium 600-Vit D3 200 Tablet] 1 tab PO QAM Ferrous Sulfate [Iron (65 MG Elemental)] 325 mg PO QAM Gabapentin [Neurontin] 300 mg PO HS #0 Aspirin [[place]ependence Aspirin EC] 81 mg PO Q48H Hydrocortisone [Cortef] 10 mg PO BID #60 tablet Sacubitril/Valsartan [Entresto 24 mg-26 mg Tablet] 1 each PO BID #60 tablet Celecoxib [CeleBREX] 200 mg PO HS DULoxetine HCL [Cymbalta] 30 mg PO QAM Torsemide [Demadex] 20 mg PO BID Turmeric Root Extract [Turmeric] 500 mg PO QAM Rosuvastatin [Crestor] 10 mg PO HS Cranberry 300 mg PO HS Discontinued Nitrofurantoin Macrocrystal [Macrodantin] 100 mg PO QAM Discharge Medication List Docusate [Colace] 100 mg PO BID 03/01/17 [History] Glucosam/Donnie-Msm1/C/Pardeep/Bosw [Glucosamine-Chondroitin Tablet] 1 tab PO HS 03/01/17 [History] Multivitamins, Thera [Multivitamin (formulary)] 1 tab PO QAM 03/01/17 [History] allopurinoL [Zyloprim] 300 mg PO Q48H 03/01/17 [History] Mirabegron [Myrbetriq] 50 mg PO QAM 06/27/17 [History] sitaGLIPtin PHOS/metFORMIN HCL [Janumet 50-500 mg Tablet] 1 tab PO HS 06/27/17 [History] Calcium Carbonate/Vitamin D3 [Calcium 600-Vit D3 200 Tablet] 1 tab PO QAM 10/11/17 [History] Ferrous Sulfate [Iron (65 MG Elemental)] 325 mg PO QAM 02/25/18 [History] Gabapentin [Neurontin] 300 mg PO HS #0 03/06/18 [Rx] Aspirin [[place] Aspirin EC] 81 mg PO Q48H 05/14/18 [History] Hydrocortisone [Cortef] 10 mg PO BID #60 tablet 05/18/18 [Rx] Sacubitril/Valsartan [Entresto 24 mg-26 mg Tablet] 1 each PO BID #60 tablet 05/18/18 [Rx] Celecoxib [CeleBREX] 200 mg PO HS 12/24/19 [History] Cranberry 300 mg PO HS 12/24/19 [History] DULoxetine HCL [Cymbalta] 30 mg PO QAM 12/24/19 [History] Rosuvastatin [Crestor] 10 mg PO HS 12/24/19 [History] Torsemide [Demadex] 20 mg PO BID 12/24/19 [History] Turmeric Root Extract [Turmeric] 500 mg PO QAM 12/24/19 [History] carvediloL [Coreg] 6.25 mg PO BID-W/MEALS #60 tab 12/29/19 [Rx] Follow up Appointment(s)/Referral(s): Ramo Buckley MD [STAFF PHYSICIAN] - 1 Week Alfredo Self MD [Primary Care Provider] - 1 Week Discharge Disposition: HOME SELF-CARE
[2019-12-29 11:37] LABS: Glucose,Whole Blood 130 mg/dL (75-99)
[2019-12-29 11:51] VITALS: BP 129/73; PULSE 76; TEMP 98
--- NOTE | 2019-12-29 13:01 | P.PN ---
Subjective Progress Note Date: 12/29/19 CHIEF COMPLAINT: Vtach HISTORY OF PRESENT ILLNESS: This is a 84-year old male with a past medical history significant for coronary artery disease, diabetes mellitus, hypertension, hyperlipidemia, and prostate cancer. Patient follows in the office with Dr. Corrigan. We have been asked to see the patient in consultation for Urbano montero. Patient underwent cystoscopy with evacuation of clots on 12/25/2019. He underwent repeat cysto with evacuation of blood clots and cauterization of bleeding vessels. Patient examined at the bedside with Dr. Gant. Patient currently denies chest pain or pressure. He denies shortness of breath. Denies dizziness or lightheadedness. Patient reports a history of CABG 3 with an aortic valve replacement. Patient had an echocardiogram performed in April 2018 revealing ejection fraction of 30 of 35%, moderate mitral regurgitation, and LV wall hypokinesis. 12/29/2019 Patient seen and examined. Patient denies any chest pain or pressure. Patient is anxious to go home. Asymptomatic run of 7 beat wide complex tachycardia last night and otherwise no significant events on telemetry. REVIEW OF SYSTEMS: At the time of my exam: CONSTITUTIONAL: Denies fever or chills. HEENT: Denies blurred vision, vision changes, or eye pain. Denies hemoptysis CARDIOVASCULAR: Denies chest pain, orthopnea, PND or palpitations RESPIRATORY: No shortness of breath. GASTROINTESTINAL: Denies abdominal pain. Denies nausea or vomiting. HEMATOLOGIC: Denies bleeding disorders. GENITOURINARY: Denies any blood in urine. SKIN: Denies pruitis. Denies rash. PHYSICAL EXAM: VITAL SIGNS: Reviewed. GENERAL: Well-developed in no acute distress. HEENT: Head is normocephalic. Pupils are equal, round. Sclerae anicteric. Mucous membranes of the mouth are moist. Neck supple. No JVD or thyromegaly LUNGS: Respirations even and unlabored. Lungs essentially clear to auscultation bilaterally. HEART: Regular rate and rhythm. S1 and S2 heard. ABDOMEN: Soft. Nondistended. Nontender. EXTREMITIES: Normal range of motion. No clubbing or cyanosis. Peripheral pulses intact. No lower extremity edema NEUROLOGIC: Awake and alert. Oriented x 3. ASSESSMENT: Wide complex tachycardia: Ventricular tachycardia versus SVT with aberrancy Gross hematuria, status post cystoscopy History of coronary artery disease with previous CABG 3 and aortic valve replacement History of ischemic cardiomyopathy, EF 30-35% Hypertension Hyperlipidemia Diabetes mellitus, type II Obesity: BMI 46.8 PLAN: 2D echo shows EF 35-40%. Would recommend continued Coreg 6.25 mg twice a day and follow-up outpatient. Unclear if wide-complex tachycardias nonsustained VT or SVT with aberancy. May consider outpt event monitor. Followup in cardiology office in 1-2 week. Objective - Vital Signs Vital signs: Vital Signs Temp 98.0 F 12/29/19 11:49 Pulse 76 12/29/19 11:49 Resp 18 12/29/19 11:50 BP 129/73 12/29/19 11:49 Pulse Ox 97 12/29/19 11:49 Intake & Output 12/28/19 12/29/19 12/29/19 18:59 06:59 18:59 Intake Total 1408 600 260 Output Total 1200 Balance 208 600 260 Weight 149.5 kg Intake: IV 630 600 20 Invasive Line 2 30 20 Sodium Chloride 0.9% 1, 600 600 000 ml @ 75 mls/hr IV . [id number] [facility] Rx#:[id number] Oral 778 240 Output: Urine 1200 3-way Urethral 600 Other: Voiding Method Urinal Incontinent Incontinent # Voids 1 - Labs CBC & Chem 7: 12/29/19 06:49 12/29/19 06:49 Labs: Abnormal Lab Results - Last 24 Hours (Table) 12/27/19 12/28/19 12/28/19 Range/Units 07:26 06:25 16:50 RBC (4.30-5.90) m/uL Hgb (13.0-17.5) gm/dL Hct (39.0-53.0) % RDW (11.5-15.5) % BUN (9-20) mg/dL Creatinine (0.66-1.25) mg/dL Glucose (74-99) mg/dL POC Glucose (mg/dL) 244 H (75-99) mg/dL Hemoglobin A1c 6.4 H (4.0-6.0) % Calcium (8.4-10.2) mg/dL Crossmatch See Detail 12/28/19 12/29/19 12/29/19 Range/Units 20:13 06:32 06:49 RBC 2.69 L (4.30-5.90) m/uL Hgb 8.0 L (13.0-17.5) gm/dL Hct 25.0 L (39.0-53.0) % RDW 16.4 H (11.5-15.5) % BUN (9-20) mg/dL Creatinine (0.66-1.25) mg/dL Glucose (74-99) mg/dL POC Glucose (mg/dL) 131 H 114 H (75-99) mg/dL Hemoglobin A1c (4.0-6.0) % Calcium (8.4-10.2) mg/dL Crossmatch 12/29/19 12/29/19 Range/Units 06:49 11:36 RBC (4.30-5.90) m/uL Hgb (13.0-17.5) gm/dL Hct (39.0-53.0) % RDW (11.5-15.5) % BUN 21 H (9-20) mg/dL Creatinine 1.46 H (0.66-1.25) mg/dL Glucose 106 H (74-99) mg/dL POC Glucose (mg/dL) 130 H (75-99) mg/dL Hemoglobin A1c (4.0-6.0) % Calcium 7.7 L (8.4-10.2) mg/dL Crossmatch
== END 2019-12-29 14:49 | disposition home or self-care (01) | DRG 663 ==
LOC: OR 12:30 → 4SSUR 16:30 → OR 12-26 14:00 → 4SSUR 12-26 14:00 → OBSVTOIN 12-27 07:45 → 3SCARD 12-27 08:56
PROVIDERS: ADMIT Urology; ATTEND Urology
PROC: 0TCB8ZZ Extirpation of Matter from Bladder, Via Natural or Artificial Opening Endoscopic (ICD-10-PCS; principal; 2019-12-25 13:45)
PROC: 0T5B8ZZ Destruction of Bladder, Via Natural or Artificial Opening Endoscopic (ICD-10-PCS; principal; 2019-12-25 13:45)
PROC: 30233N1 Transfusion of Nonautologous Red Blood Cells into Peripheral Vein, Percutaneous Approach (ICD-10-PCS; 2019-12-27)
PROC: 0W3R8ZZ Control Bleeding in Genitourinary Tract, Via Natural or Artificial Opening Endoscopic (ICD-10-PCS; 2019-12-27 09:00)
PROC: 0TCB8ZZ Extirpation of Matter from Bladder, Via Natural or Artificial Opening Endoscopic (ICD-10-PCS; 2019-12-27 09:00)
DX: N30.41 Irradiation cystitis with hematuria (principal); F33.9 Major depressive disorder, recurrent, unspecified; I47.2 Ventricular tachycardia; Z68.42 Body mass index [BMI] 45.0-49.9, adult; D62 Acute posthemorrhagic anemia; N17.9 Acute kidney failure, unspecified; I42.9 Cardiomyopathy, unspecified; E66.01 Morbid (severe) obesity due to excess calories; E78.5 Hyperlipidemia, unspecified; G62.9 Polyneuropathy, unspecified; E11.22 Type 2 diabetes mellitus with diabetic chronic kidney disease; N32.81 Overactive bladder; Z66 Do not resuscitate; I25.10 Atherosclerotic heart disease of native coronary artery without angina pectoris; I12.9 Hypertensive chronic kidney disease with stage 1 through stage 4 chronic kidney disease, or unspecified chronic kidney disease; I27.20 Pulmonary hypertension, unspecified; I25.5 Ischemic cardiomyopathy; M10.9 Gout, unspecified; I49.3 Ventricular premature depolarization; N18.30 Chronic kidney disease, stage 3 unspecified; Y84.2 Radiological procedure and radiotherapy as the cause of abnormal reaction of the patient, or of later complication, without mention of misadventure at the time of the procedure; R33.8 Other retention of urine; I34.0 Nonrheumatic mitral (valve) insufficiency; L40.9 Psoriasis, unspecified; G47.33 Obstructive sleep apnea (adult) (pediatric); Z87.440 Personal history of urinary (tract) infections; Z86.19 Personal history of other infectious and parasitic diseases; Z95.2 Presence of prosthetic heart valve; Z95.1 Presence of aortocoronary bypass graft; Z92.3 Personal history of irradiation; Z87.891 Personal history of nicotine dependence; Z82.49 Family history of ischemic heart disease and other diseases of the circulatory system; Z83.3 Family history of diabetes mellitus; Z79.899 Other long term (current) drug therapy; Z85.46 Personal history of malignant neoplasm of prostate
CPT/HCPCS: 36410; 76937; 80048; 80053; 82040; 82247; 83036; 83735; 84075; 84155; 84450; 84460; 85025; 85027; 86850; 86900; 86901; 86920; 93306

== ENCOUNTER 2020-09-03 12:52 | Inpatient (IN) | payer MEDICARE ==
--- NOTE | 2020-09-03 14:26 | ED ---
General Adult HPI - General Chief complaint: Skin/Abscess/Foreign Body Stated complaint: toe infection Time Seen by Provider: 09/03/20 14:13 Source: patient, RN notes reviewed Mode of arrival: wheelchair Limitations: no limitations - History of Present Illness Initial comments: Patient is a pleasant 84-year-old male presenting to the emergency department with concerns for left foot infection. Patient injured it twice, once 2 weeks ago and again a couple days ago. Patient has had some mild bleeding. Patient did go to his doctor's office today and was sent here for IV antibiotics. Patient states only mild discomfort. Patient is a diabetic. - Related Data Home Medications Medication Instructions Recorded Confirmed Docusate [Colace] 100 mg PO BID 03/01/17 12/25/19 Glucosam/Donnie-Msm1/C/Pardeep/Bosw 1 tab PO HS 03/01/17 12/25/19 [Glucosamine-Chondroitin Tablet] Multivitamins, Thera [Multivitamin 1 tab PO QAM 03/01/17 12/25/19 (formulary)] allopurinoL [Zyloprim] 300 mg PO Q48H 03/01/17 12/25/19 Mirabegron [Myrbetriq] 50 mg PO QAM 06/27/17 12/25/19 sitaGLIPtin PHOS/metFORMIN HCL 1 tab PO HS 06/27/17 12/25/19 [Janumet 50-500 mg Tablet] Calcium Carbonate/Vitamin D3 1 tab PO QAM 10/11/17 12/25/19 [Calcium 600-Vit D3 5 Mcg (200 Iu)] Ferrous Sulfate [Iron (65 MG 325 mg PO QAM 02/25/18 12/25/19 Elemental)] Aspirin [[place] Aspirin EC] 81 mg PO Q48H 05/14/18 12/25/19 Celecoxib [CeleBREX] 200 mg PO HS 12/24/19 12/25/19 Cranberry 300 mg PO HS 12/24/19 12/25/19 DULoxetine HCL [Cymbalta] 30 mg PO QAM 12/24/19 12/25/19 Rosuvastatin [Crestor] 10 mg PO HS 12/24/19 12/25/19 Torsemide [Demadex] 20 mg PO BID 12/24/19 12/25/19 Turmeric Root Extract [Turmeric] 500 mg PO QAM 12/24/19 12/25/19 Previous Rx's Medication Instructions Recorded Gabapentin [Neurontin] 300 mg PO HS #0 03/06/18 Hydrocortisone [Cortef] 10 mg PO BID #60 tablet 05/18/18 Sacubitril/Valsartan [Entresto 24 1 each PO BID #60 tablet 05/18/18 mg-26 mg Tablet] carvediloL [Coreg] 6.25 mg PO BID-W/MEALS #60 tab 12/29/19 Allergies Allergy/AdvReac Type Severity Reaction Status Date / Time No Known Allergies Allergy Verified 09/03/20 13:18 Review of Systems ROS Statement: Those systems with pertinent positive or pertinent negative responses have been documented in the HPI. ROS Other: All systems not noted in ROS Statement are negative. Constitutional: Denies: fever Eyes: Denies: eye pain ENT: Denies: ear pain Respiratory: Denies: cough Cardiovascular: Denies: chest pain Endocrine: Denies: fatigue Gastrointestinal: Denies: abdominal pain Genitourinary: Denies: dysuria Musculoskeletal: Denies: back pain Skin: Reports: as per HPI Neurological: Denies: headache Past Medical History Past Medical History: Blood Disorder, Coronary Artery Disease (CAD), Cancer, Diabetes Mellitus, Hyperlipidemia, Hypertension, Osteoarthritis (OA), Prostate Disorder, Renal Disease, Skin Disorder, Sleep Apnea/CPAP/BIPAP Additional Past Medical History / Comment(s): current indwelling catheter, 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 Anemia with blood transfusions.02/25/2018 WAS IN [facility] FOR SEPSIS UTI ECOLI INFECTION. History of Any Multi-Drug Resistant Organisms: ESBL Date of last positivie culture/infection: 02/25/18 MDRO Source:: urine, blood esbl Past Surgical History: Cardiac Valve Replacement, Coronary Bypass/CABG, Heart Catheterization Additional Past Surgical History / Comment(s): 03/02/17 cystoscopy/evacuation clots and fulguration bladder, 01/20/12 CABG-3 vessel with aortic valve. Past Anesthesia/Blood Transfusion Reactions: No Reported Reaction Past Psychological History: No Psychological Hx Reported Smoking Status: Former smoker Past Alcohol Use History: None Reported Past Drug Use History: None Reported - Past Family History Mother Family Medical History: Myocardial Infarction (DC) Additional Family Medical History / Comment(s): Mother at age 67 from a myocardial infarction. Father Family Medical History: Diabetes Mellitus, Myocardial Infarction (DC) Additional Family Medical History / Comment(s): Father from complications from diabetes mellitus that was uncontrolled with frequent episodes of coma. He also has history of myocardial infarction. The patient has no children and no siblings. General Exam Limitations: no limitations General appearance: alert, in no apparent distress Head exam: Present: normocephalic Eye exam: Present: normal appearance Respiratory exam: Present: normal lung sounds bilaterally Cardiovascular Exam: Present: regular rate, normal rhythm GI/Abdominal exam: Present: soft. Absent: tenderness Extremities exam: Present: other (Left great toe with abrasions/lacerations and dorsal ulcer with erythema with toe ecchymosis. Left second toe with small ulcer dorsally as well.) Neurological exam: Present: alert Psychiatric exam: Present: normal affect, normal mood Skin exam: Present: other (First and Second toe ulcerations. Some erythema of the great toe as well.) Course Vital Signs 09/03/20 13:13 Temperature 98.1 F Pulse Rate 62 Respiratory 20 Rate Blood Pressure 145/65 O2 Sat by Pulse 98 Oximetry Medical Decision Making - Medical Decision Making Patient made aware of plan. Case discussed with Dr. Moise, who admits covering for Dr. Self. She requests consult Dr. Sabillon as well as cefazolin - Lab Data Result diagrams: 09/03/20 14:00 09/03/20 14:00 Lab Results 09/03/20 09/03/20 09/03/20 Range/Units 14:00 14:00 14:00 WBC 6.7 (3.8-10.6) k/uL RBC 3.38 L (4.30-5.90) m/uL Hgb 10.9 L (13.0-17.5) gm/dL Hct 31.5 L (39.0-53.0) % MCV 93.3 (80.0-100.0) fL MCH 32.1 (25.0-35.0) pg MCHC 34.4 (31.0-37.0) g/dL RDW 14.9 (11.5-15.5) % Plt Count 149 L (150-450) k/uL MPV 8.1 Neutrophils % 79 % Lymphocytes % 11 % Monocytes % 7 % Eosinophils % 2 % Basophils % 1 % Neutrophils # 5.3 (1.3-7.7) k/uL Lymphocytes # 0.7 L (1.0-4.8) k/uL Monocytes # 0.4 (0-1.0) k/uL Eosinophils # 0.1 (0-0.7) k/uL Basophils # 0.0 (0-0.2) k/uL PT 10.1 (9.0-12.0) sec INR 0.9 (<1.2) APTT 23.7 (22.0-30.0) sec Sodium 140 (137-145) mmol/L Potassium 4.3 (3.5-5.1) mmol/L Chloride 102 (98-107) mmol/L Carbon Dioxide 29 (22-30) mmol/L Anion Gap 9 mmol/L BUN 32 H (9-20) mg/dL Creatinine 1.69 H (0.66-1.25) mg/dL Est GFR (CKD-EPI)AfAm 43 (>60 ml/min/1.73 sqM) Est GFR (CKD-EPI)NonAf 37 (>60 ml/min/1.73 sqM) Glucose 177 H (74-99) mg/dL Plasma Lactic Acid Judd (0.7-2.0) mmol/L Calcium 9.7 (8.4-10.2) mg/dL Total Bilirubin 0.2 (0.2-1.3) mg/dL AST 22 (17-59) U/L ALT 12 (4-49) U/L Alkaline Phosphatase 102 (38-126) U/L Total Protein 7.0 (6.3-8.2) g/dL Albumin 4.0 (3.5-5.0) g/dL Coronavirus (PCR) (Not Detectd) 09/03/20 09/03/20 Range/Units 14:00 14:43 WBC (3.8-10.6) k/uL RBC (4.30-5.90) m/uL Hgb (13.0-17.5) gm/dL Hct (39.0-53.0) % MCV (80.0-100.0) fL MCH (25.0-35.0) pg MCHC (31.0-37.0) g/dL RDW (11.5-15.5) % Plt Count (150-450) k/uL MPV Neutrophils % % Lymphocytes % % Monocytes % % Eosinophils % % Basophils % % Neutrophils # (1.3-7.7) k/uL Lymphocytes # (1.0-4.8) k/uL Monocytes # (0-1.0) k/uL Eosinophils # (0-0.7) k/uL Basophils # (0-0.2) k/uL PT (9.0-12.0) sec INR (<1.2) APTT (22.0-30.0) sec Sodium (137-145) mmol/L Potassium (3.5-5.1) mmol/L Chloride (98-107) mmol/L Carbon Dioxide (22-30) mmol/L Anion Gap mmol/L BUN (9-20) mg/dL Creatinine (0.66-1.25) mg/dL Est GFR (CKD-EPI)AfAm (>60 ml/min/1.73 sqM) Est GFR (CKD-EPI)NonAf (>60 ml/min/1.73 sqM) Glucose (74-99) mg/dL Plasma Lactic Acid Judd 1.1 (0.7-2.0) mmol/L Calcium (8.4-10.2) mg/dL Total Bilirubin (0.2-1.3) mg/dL AST (17-59) U/L ALT (4-49) U/L Alkaline Phosphatase (38-126) U/L Total Protein (6.3-8.2) g/dL Albumin (3.5-5.0) g/dL Coronavirus (PCR) Not Detected (Not Detectd) - Radiology Data Radiology results: image reviewed (X-ray of the left foot shows no fracture or dislocation. Subcutaneous edema and soft tissue swelling left foot.) Disposition Clinical Impression: Diabetic foot ulcer Disposition: ADMITTED IP TO THIS HOSP Is patient prescribed a controlled substance at d/c from ED?: No Referrals: Alfredo Self MD [Primary Care Provider] - 1-2 days Decision Time: 15:27
[2020-09-03 14:47] LABS: Basophils % (A) 1 %; Eosinophils # (A) 0.1 k/uL (0-0.7); Eosinophils % (A) 2 %; HCT 31.5 % (39.0-53.0); HGB 10.9 gm/dL (13.0-17.5); Lymphocytes # (A) 0.7 k/uL (1.0-4.8); Lymphocytes % (A) 11 %; MCH 32.1 pg (25.0-35.0); MCHC 34.4 g/dL (31.0-37.0); MCV 93.3 fL (80.0-100.0); Mean Platelet Volume 8.1; Monocytes # (A) 0.4 k/uL (0-1.0); Monocytes % (A) 7 %; Neutrophils # (A) 5.3 k/uL (1.3-7.7); Neutrophils % (A) 79 %; Platelet Count 149 k/uL (150-450); RBC 3.38 m/uL (4.30-5.90); RDW 14.9 % (11.5-15.5); WBC 6.7 k/uL (3.8-10.6)
[2020-09-03 14:59] LABS: Calcium 9.7 mg/dL (8.4-10.2); Potassium 4.3 mmol/L (3.5-5.1); Total Bilirubin 0.2 mg/dL (0.2-1.3)
[2020-09-03 15:11] LABS: INR 0.9 (<1.2); Partial Thromboplastin Time 23.7 sec (22.0-30.0); Prothrombin Time 10.1 sec (9.0-12.0)
--- NOTE | 2020-09-03 15:14 | XR ---
EXAMINATION TYPE: XR foot complete LT DATE OF EXAM: 09/03/2020 CLINICAL HISTORY: Pain and swelling, soft tissue infection TECHNIQUE: Frontal, lateral, and oblique images of the left foot are obtained. COMPARISON: None FINDINGS: There is no acute fracture/dislocation evident in the left foot. The joint spaces in the left foot appear within normal limits. Moderate size inferior calcaneal spur. Surgical clips ankle le macho likely from venous harvesting procedure. Arterial vascular calcification ankle level noted. Mild to moderate diffuse subcutaneous edema and soft tissue swelling throughout the left foot. No suspicio us bony destruction to suggest acute osteomyelitis. Some flexion in the toes and osseous overlap make s evaluation at this level slightly suboptimal. IMPRESSION: As above.
[2020-09-03] MEDS ORDERED: NALOXONE 0.4 MG/ML 1 ML VIAL IV PRN (15:28)
--- NOTE | 2020-09-03 17:25 | XR ---
Left toes HISTORY: Great toe injury 3 views of the first toes of left foot Correlation to prior exam 09/03/2020 left foot On the lateral exam there is a cortical irregularity suggesting fracture of the tuft of the first dig it, lucencies present on the oblique view and frontal view. There is a small ossific density present at the proximal aspect of the medial portion of the proximal phalanx of the first digit left foot, th ought to be well-corticated. Arthropathy is present at the metatarsophalangeal joint. There is soft t issue swelling present. Alignment is maintained, there is no dislocation. No periostitis to suggest o steomyelitis. IMPRESSION: Correlate for cellulitis. Correlate for tuft fracture first digit. Possible remote trauma to the first digit, there is osteoarthritis, difficult to exclude small chip intra-articular fractur e on the basis of this exam.
--- NOTE | 2020-09-04 08:13 | CONS ---
CONSULTATION DATE OF SERVICE: 09/03/2020 REASON FOR CONSULTATION: Left foot wound and cellulitis. HISTORY OF PRESENT ILLNESS: The patient is an 84-year-old male who apparently did stub his left big toe a few days ago. The patient did have some bleeding and discoloration to the left foot. The patient also had injury to the left leg at that point. The patient did have some improvement initially, however, the patient did stub his left again and subsequently noticed to have more black discoloration along with some bleeding and redness. The patient did have underlying diabetic neuropathy and denies significant pain to the left foot area. With worsening discoloration, swelling, redness and some drainage, the patient went to see his primary care physician and the patient was subsequently advised to go to the hospital for IV antibiotic therapy. The patient denies having any fever or any chills. Denies having any chest pain. No shortness of breath or cough. No nausea, vomiting. No abdominal pain or diarrhea. As mentioned above, he does have neuropathy and hence denies significant pain to the left foot wound area. On admission to the hospital, the patient did have x-rays of the foot and toe, which did show some fracture of the left big toe. No other abnormality. The patient did have a normal white count. The patient was started on cefazolin. Has been admitted to the hospital. Infectious Disease was consulted for further management of antibiotic therapy. REVIEW OF SYSTEMS: Positive points have been mentioned in HPI. Rest of systems are negative. PAST MEDICAL HISTORY: Coronary artery disease, diabetes mellitus, hypertension, hyperlipidemia, osteoarthritis, prostate disorder, adrenal insufficiency. PAST SURGICAL HISTORY: Coronary artery bypass grafting, heart catheterization, valve replacement, cystoscopy, fulguration of the bladder. SOCIAL HISTORY: Remote history of smoking. No drinking or drug use. FAMILY HISTORY: Mother with history of [place]. Father with history of diabetes and [place]. ALLERGIES: No known drug allergies. MEDICATIONS: The patient is currently on cefazolin 2 grams q.8 hours and Narcan. PHYSICAL EXAMINATION: VITAL SIGNS: Blood pressure 147/65, pulse of 66, temperature 98.3, he is 97% on room air. GENERAL DESCRIPTION: The patient is an elderly male lying in bed in no distress. No tachypnea or accessory muscles of respiration use. HEENT: Examination shows pallor, no scleral icterus. Oral mucous membrane is dry. NECK: Trachea central, no thyromegaly. LUNGS: Unlabored breathing, clear to auscultation anteriorly. No wheeze or crackle. HEART: S1, S2. Regular rate and rhythm. ABDOMEN: Soft, no tenderness, no guarding, no rigidity. EXTREMITIES: No edema of the feet. Examination of the left big toe did have a discoloration with ulceration and redness, no significant drainage was noticed. The patient did have a left lower extremity superficial ulceration and minimal cellulitis. No foul-smelling drainage. NEUROLOGICAL: The patient is awake, alert, oriented times two. Mood and affect normal. LABS: Hemoglobin is 10.8, white count 6.7, BUN of 32, creatinine 1.69. X-rays of the toe as above-mentioned above. Gordillo PCR was negative. DIAGNOSTIC IMPRESSION: 1. Patient with left big toe traumatic wound with underlying diabetes mellitus and evidence of diabetic foot infection and cellulitis likely from a gram-positive skin adrian. Clinically doubt gram negative or an MRSA infection. 2. Patient with left lower extremity wound with no evidence of any cellulitis. PLAN: 1. Cefazolin 2 grams q.8 hours to continue. 2. Dry Aquacel Silver dressing to the left leg wound to be changed every 48 hours. 3. Dry protective dressing to the left big toe wound. 4. We will follow on clinical condition and further adjust medication if needed. Thank you for this consultation. Will follow this patient along with you. [id number] / IJN: [id number] /
[2020-09-04] MEDS ORDERED: MELOXICAM 7.5 MG TAB PO PRN (11:18)
[2020-09-04] MEDS ORDERED: MELATONIN 3 MG TABLET PO PRN (11:38)
[2020-09-04 14:47] VITALS: BMI 41.5
[2020-09-04] MEDS: HYDROCORTISONE 10 MG TAB PO SCH ×2 (15:18→20:46)
[2020-09-04] MEDS: FERROUS SULFATE 325 MG TAB PO SCH (15:18)
[2020-09-04] MEDS: DULoxetine HCL 30 MG CAPSULE.DR PO SCH (15:18)
[2020-09-04] MEDS: METOPROLOL SUCCINATE (ER) 25 MG TAB.ER.24H PO SCH (15:19)
[2020-09-04] MEDS: allopurinoL 300 MG TAB PO SCH (15:19)
[2020-09-04] MEDS: TORSEMIDE 20 MG TAB PO SCH ×2 (15:19→20:47)
[2020-09-04] MEDS: NON FORMULARY DRUG (Mirabegron [Myrbetriq] 50 MG Tab.Er.24h) PO SCH (16:07)
--- NOTE | 2020-09-04 17:13 | P.HPIM ---
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 fib with RVR neuropathy, for which he blamed herpes zoster rather than diabetes or sciatica for the neuropathy,, she does not have any pain in the foot, however he lost sensation on the foot. Patient apparently has been using the walker of long- term, however that day when he tripped, he tripped at home, in the carpet. Without any walker for assistance. She was seen in the office, with treatment of traumatic toe cellulitis, using doxycycline, for which she completed over 10 days worth of treatment. Patient was with the at the doctor's office on the day of admission, when they have decided to check on that toe, and recommended IV antibiotic. There is some drainage redness, and excoriation, nec rotic tissue in the distal toe, with redness involving the phalanx of the toe. There is also another abrasion, in the left catalan, measuring approximately 3 cm x 4 cm. This is also well, with shallow ulceration, and drainage. No cultures were done in the emergency room, patient was subsequently admitted, with blood cultures done, IV antibiotics, cefazolin and consult to Dr. aHckett. X-ray of the foot did not show any osteomyelitis, no fracture, however there is moderate diffuse edema. We've requested arterial Dopplers to be done, to evaluate for circulation. Patient is also going to require his CPAP or BiPAP machine to be sent from home, the is going to pick this when up. Patient is also on nitrofurantoin chronically for chronic cystitis, has underlying magician cystitis,. Creatinine was 1.69 on the ER, with PCR coronavirus negative double basic count 6.7, hemoglobin 10.9, glucose 102, to 154, requested A1c to be done Review of Systems Constitutional: Reports as per HPI, Denies anorexia, Denies chills, Denies chronic headaches, Denies chronic pain, Denies daytime sleepiness, Denies fatigue, Denies fever, Denies lethargy, Denies malaise, Denies night sweats, Denies poor appetite, Denies sweats, Denies weakness, Denies weight gain, Denies weight loss Ears, nose, mouth and throat: Reports as per HPI, Denies ant. neck pain, Denies bleeding gums, Denies dental pain, Denies dysphagia, Denies epistaxis, Denies h eadache, Denies hoarseness, Denies mouth pain, Denies nasal congestion, Denies nasal discharge, Denies neck fullness/pressure, Denies neck lump, Denies nose pain, Denies odynophagia, Denies post-nasal drip, Denies sinus pain, Denies sinus pressure, Denies swelling in mouth, Denies swelling in throat, Denies sore throat, Denies vertigo, Denies voice changes Cardiovascular: Reports as per HPI, Reports claudication, Reports edema, Reports shortness of breath (Chronic on exertion) Respiratory: Reports as per HPI, Denies congestion, Denies cough, Denies cough with sputum, Denies dyspnea, Denies excessive sputum, Denies hemoptysis, Denies home oxygen, Denies pain, Denies pain on inspiration, Denies pleurisy, Denies respiratory infections, Denies sleep apnea, Denies snoring, Denies wheezing Gastrointestinal: Reports as per HPI, Denies abdominal pain, Denies belching, Denies bloating, Denies BRBPR, Denies change in bowel habits, Denies coffee ground emesis, Denies constipation, Denies diarrhea, Denies dyspepsia, Denies early satiety, Denies excessive gas, Denies heartburn, Denies hematemesis, Denies hematochezia, Denies indigestion, Denies jaundice, Denies lactose intolerance, Denies loss of appetite, Denies melena, Denies nausea, Denies vomiting Genitourinary: Reports as per HPI, Reports urinary frequency (Radiation cystitis on chronic antibiotics Macrobid), Reports urinary retention Musculoskeletal: Reports arm numbness/tingling, Reports muscle weakness Past Medical History Past Medical History: Blood Disorder, Coronary Artery Disease (CAD), Cancer, Diabetes Mellitus, Hyperlipidemia, Hypertension, Osteoarthritis (OA), Prostate Disorder, Renal Disease, Skin Disorder, Sleep Apnea/CPAP/BIPAP Additional Past Medical History / Comment(s): 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 Anemia with blood transfusions.02/25/2018 WAS IN [facility] FOR SEPSIS UTI ECOLI INFECTION. History of Any Multi-Drug Resistant Organisms: ESBL Date of last positivie culture/infection: 02/25/18 MDRO Source:: urine, blood esbl Past Surgical History: Cardiac Valve Replacement, Coronary Bypass/CABG, Heart Catheterization Additional Past Surgical History / Comment(s): 03/02/17 cystoscopy/evacuation clots and fulguration bladder, 01/20/12 CABG-3 vessel with aortic valve. Past Anesthesia/Blood Transfusion Reactions: No Reported Reaction Past Psychological History: No Psychological Hx Reported Additional Psychological History / Comment(s): . Smoking Status: Former smoker Past Alcohol Use History: None Reported Additional Past Alcohol Use History / Comment(s): quit smoking 1983 was a smoker of one pack per day for approximately 25 years. Past Drug Use History: None Reported - Past Family History Mother Family Medical History: Myocardial Infarction ([place]) Additional Family Medical History / Comment(s): Mother at age 67 from a myocardial infarction. Father Family Medical History: Diabetes Mellitus, Myocardial Infarction ([place]) Additional Family Medical History / Comment(s): Father from complications from diabetes mellitus that was uncontrolled with frequent episodes of coma. He also has history of myocardial infarction. The patient has no children and no siblings. Medications and Allergies Home Medications Medication Instructions Recorded Confirmed Type Docusate [Colace] 100 mg PO DAILY 03/01/17 09/03/20 History Glucosam/Donnie-Msm1/C/Pardeep/Bosw 1 tab PO HS 03/01/17 09/03/20 History [Glucosamine-Chondroitin Tablet] Multivitamins, Thera [Multivitamin 1 tab PO DAILY 03/01/17 09/03/20 History (formulary)] allopurinoL [Zyloprim] 300 mg PO Q48H 03/01/17 09/03/20 History Mirabegron [Myrbetriq] 50 mg PO DAILY 06/27/17 09/03/20 History sitaGLIPtin PHOS/metFORMIN HCL 1 tab PO HS 06/27/17 09/03/20 History [Janumet 50-500 mg Tablet] Ferrous Sulfate [Iron (65 MG 325 mg PO DAILY 02/25/18 09/03/20 History Elemental)] Gabapentin [Neurontin] 300 mg PO HS #0 03/06/18 09/03/20 Rx Hydrocortisone [Cortef] 10 mg PO BID #60 tablet 05/18/18 09/03/20 Rx Celecoxib [CeleBREX] 200 mg PO DAILY PRN 12/24/19 09/03/20 History Cranberry 300 mg PO HS 12/24/19 09/03/20 History DULoxetine HCL [Cymbalta] 30 mg PO DAILY 12/24/19 09/03/20 History Rosuvastatin [Crestor] 10 mg PO HS 12/24/19 09/03/20 History Torsemide [Demadex] 20 mg PO BID 12/24/19 09/03/20 History Turmeric Root Extract [Turmeric] 500 mg PO DAILY 12/24/19 09/03/20 History Calcium Carbonate [Calcium] 600 mg PO DAILY 09/03/20 09/03/20 History Doxycycline Hyclate 100 mg PO BID 09/03/20 09/03/20 History Metoprolol Succinate [Toprol XL] 25 mg PO DAILY 09/03/20 09/03/20 History Nitrofurantoin Monohyd/M-Cryst 100 mg PO AC-BRKFST 09/03/20 09/03/20 History [Macrobid] Sacubitril/Valsartan [Entresto 24 1 tab PO BID 09/03/20 09/03/20 History mg-26 mg Tablet] Silver Sulfadiazine [SSD 1% Cream] 1 applic TOPICAL BID 09/03/20 09/03/20 History Solifenacin Succinate 5 mg PO HS 09/03/20 09/03/20 History Allergies Allergy/AdvReac Type Severity Reaction Status Date / Time No Known Allergies Allergy Verified 09/03/20 15:44 Physical Exam Vitals: Vital Signs Temp Pulse Pulse Resp BP BP Pulse Ox 09/04/20 07:00 98.3 F 69 16 127/63 93 L 09/03/20 22:30 98.3 F 66 18 147/65 97 09/03/20 21:50 98.6 F 76 20 152/72 98 09/03/20 20:00 66 18 09/03/20 19:58 98.4 F 82 18 174/72 97 09/03/20 18:46 163/83 09/03/20 18:05 98.6 F 72 16 152/92 98 09/03/20 13:13 98.1 F 62 20 145/65 98 Intake and Output 09/03/20 09/04/20 09/04/20 22:59 06:59 14:59 Intake Total 200 Balance 200 Intake: Oral 200 Other: Voiding Method Diaper # Voids 1 Weight 131.542 kg - Constitutional General appearance: cooperative, obese - EENT Eyes: anicteric sclerae, EOMI, PERRLA, normal appearance ENT: NA/AT, normal oropharynx - Neck Neck: normal ROM - Respiratory Respiratory: bilateral: CTA, negative: diminished, dullness - Cardiovascular Rhythm: regular Heart sounds: normal: S1, S2 Abnormal Heart Sounds: no systolic murmur, no diastolic murmur, no rub, no S3 Gallop, no S4 Gallop, no click, no other - Gastrointestinal General gastrointestinal: normal bowel sounds - Integumentary Integumentary: cellulitis, ulcer - Neurologic Neurologic: CNII-XII intact - Musculoskeletal Musculoskeletal: gait normal, generalized weakness, strength equal bilaterally, left sided weakness - Psychiatric Psychiatric: A&O x's 3, appropriate affect, intact judgment & insight Results CBC & Chem 7: 09/03/20 14:00 09/03/20 14:00 Labs: Abnormal Lab Results - Last 24 Hours (Table) 09/03/20 09/03/20 Range/Units 14:00 14:00 RBC 3.38 L (4.30-5.90) m/uL Hgb 10.9 L (13.0-17.5) gm/dL Hct 31.5 L (39.0-53.0) % Plt Count 149 L (150-450) k/uL Lymphocytes # 0.7 L (1.0-4.8) k/uL BUN 32 H (9-20) mg/dL Creatinine 1.69 H (0.66-1.25) mg/dL Glucose 177 H (74-99) mg/dL Laboratory Results WBC 6.7 k/uL (3.8-10.6) 09/03/20 14:00 RBC 3.38 m/uL (4.30-5.90) L 09/03/20 14:00 Hgb 10.9 gm/dL (13.0-17.5) L 09/03/20 14:00 Hct 31.5 % (39.0-53.0) L 09/03/20 14:00 MCV 93.3 fL (80.0-100.0) 09/03/20 14:00 MCH 32.1 pg (25.0-35.0) 09/03/20 14:00 MCHC 34.4 g/dL (31.0-37.0) 09/03/20 14:00 RDW 14.9 % (11.5-15.5) 09/03/20 14:00 Plt Count 149 k/uL (150-450) L 09/03/20 14:00 MPV 8.1 09/03/20 14:00 Neutrophils % 79 % 09/03/20 14:00 Lymphocytes % 11 % 09/03/20 14:00 Monocytes % 7 % 09/03/20 14:00 Eosinophils % 2 % 09/03/20 14:00 Basophils % 1 % 09/03/20 14:00 Neutrophils # 5.3 k/uL (1.3-7.7) 09/03/20 14:00 Lymphocytes # 0.7 k/uL (1.0-4.8) L 09/03/20 14:00 Monocytes # 0.4 k/uL (0-1.0) 09/03/20 14:00 Eosinophils # 0.1 k/uL (0-0.7) 09/03/20 14:00 Basophils # 0.0 k/uL (0-0.2) 09/03/20 14:00 PT 10.1 sec (9.0-12.0) 09/03/20 14:00 INR 0.9 (<1.2) 09/03/20 14:00 APTT 23.7 sec (22.0-30.0) 09/03/20 14:00 Sodium 140 mmol/L (137-145) 09/03/20 14:00 Potassium 4.3 mmol/L (3.5-5.1) 09/03/20 14:00 Chloride 102 mmol/L (98-107) 09/03/20 14:00 Carbon Dioxide 29 mmol/L (22-30) 09/03/20 14:00 Anion Gap 9 mmol/L 09/03/20 14:00 BUN 32 mg/dL (9-20) H 09/03/20 14:00 Creatinine 1.69 mg/dL (0.66-1.25) H 09/03/20 14:00 Est GFR (CKD-EPI)AfAm 43 (>60 ml/min/1.73 sqM) 09/03/20 14:00 Est GFR (CKD-EPI)NonAf 37 (>60 ml/min/1.73 sqM) 09/03/20 14:00 Glucose 177 mg/dL (74-99) H 09/03/20 14:00 Plasma Lactic Acid Judd 1.1 mmol/L (0.7-2.0) 09/03/20 14:00 Calcium 9.7 mg/dL (8.4-10.2) 09/03/20 14:00 Total Bilirubin 0.2 mg/dL (0.2-1.3) 09/03/20 14:00 AST 22 U/L (17-59) 09/03/20 14:00 ALT 12 U/L (4-49) 09/03/20 14:00 Alkaline Phosphatase 102 U/L (38-126) 09/03/20 14:00 Total Protein 7.0 g/dL (6.3-8.2) 09/03/20 14:00 Albumin 4.0 g/dL (3.5-5.0) 09/03/20 14:00 Coronavirus (PCR) Not Detected (Not Detectd) 09/03/20 14:43 Thrombosis Risk Factor Assmnt - DVT/VTE Prophylaxis DVT/VTE Prophylaxis: Pharmacologic Prophylaxis ordered - Choose All That Apply Any of the Below Risk Factors Present?: Yes Each Factor Represents 1 point: Obesity (BMI >25) Other Risk Factors: Yes Each Risk Factor Represents 3 Points: Age 75 years or older Other congenital or acquired thrombophilia - If yes, enter type in comment: No Thrombosis Risk Factor Assessment Total Risk Factor Score: 4 Thrombosis Risk Factor Assessment Level: Moderate Risk Assessment and Plan Plan: 1. Acute cellulitis involving a traumatic toe ulceration, first left toe big toe, has underlying diabetes, and neuropathy, requires IV antibiotics, cefazolin was started, from the emergency room. Dr. Block infectious disease to see, cultures to be done from the wound, blood cultures has been sent. 2. Peripheral neuropathy, has underlying sciatica, patient has previous history of postherpetic neuralgia, involving the lower extremity, patient has lack of foot sensory awareness, and diminished pulses, arterial Doppler is requested, patient was counseled on compliance to walker use at home, on gabapentin 300 mg at bedtime Cymbalta 30 mg at bedtime 3. Diabetes mellitus type 2, on metformin 500 at bedtime, Cogentin 5 mg at bedtime hemoglobin A1c to be done 4. chf reduced ecf, on entresto bid torsemide 25 mg twice a day, currently compensated 5. Chronic ejection cystitis with recurrent UTI, on nitrofurantoin 100 mg maintenance dose Obstructive sleep apnea, on CPAP device, device to come from home, Loni in 6 mg at bedtime when necessary, patient does not agree that he needs anything for sleep H time, however it's offered to him 7. Edema, on torsemide 20 mg twice a day 8 Adrenal insufficiency, on Cortef 10 mg twice a day 9 Iron deficiency anemia, on ferrous sulfate 325 mg daily GI prophylaxis next DVT prophylaxis
[2020-09-04 18:10] LABS: Glucose,Whole Blood 151 mg/dL (75-99)
[2020-09-04 20:09] LABS: Glucose,Whole Blood 213 mg/dL (75-99)
[2020-09-04] MEDS: SACUBITRIL/VALSARTAN 24 MG-26 MG TABLET PO SCH (20:46)
[2020-09-04] MEDS: LINAGLIPTIN 5 MG TABLET PO SCH (20:46)
[2020-09-04] MEDS: GABAPENTIN 300 MG CAP PO SCH (20:46)
[2020-09-04] MEDS: TROSPIUM CHLORIDE 20 MG TABLET PO SCH (20:46)
[2020-09-04] MEDS: metFORMIN 500 MG TAB PO SCH (20:47)
[2020-09-04] MEDS: ATORVASTATIN 10 MG TAB PO SCH (20:47)
[2020-09-04] MEDS: FAMOTIDINE 20 MG TAB PO SCH (20:47)
[2020-09-04] MEDS: ENOXAPARIN 30 MG/0.3 ML SYRINGE SQ SCH (20:47)
[2020-09-04] MEDS: CRANBERRY 300 MG PO SCH (20:48)
[2020-09-04] MEDS: INSULIN ASPART (NovoLOG) 100 UNIT/ML VIAL SQ SCH (20:50)
--- NOTE | 2020-09-04 22:26 | PN ---
PROGRESS NOTE DATE OF SERVICE: 09/04/2020. REASON FOR FOLLOW UP: Left foot and leg wound cellulitis. INTERVAL HISTORY: Patient is afebrile. The patient is breathing comfortably. Denies any chest pain, shortness of breath or cough. No nausea, vomiting, abdominal pain, no worsening pain to the left foot. PHYSICAL EXAMINATION: Blood pressure 120/70 with a pulse of 74, temperature 98.1. He is 97% on room air. General description is an elderly male lying in no distress. Respiratory system: Unlabored breathing, clear to auscultation anteriorly. Heart S1, S2. Regular rate and rhythm. Abdomen soft, no tenderness. Left big toe, swelling and redness has slightly decreased. Left leg wound no redness or drainage. LABS: No new labs have been obtained today. Blood culture has been negative so far. DIAGNOSTIC IMPRESSION AND PLAN: Patient with traumatic wound to the left leg and left big toe area with concern for secondary cellulitis. The patient did have improvement with cefazolin that will be continued while monitor his clinical course and cultures closely. Continue supportive care. MMODL / IJN: [id number] /
[2020-09-05 07:28] LABS: Glucose,Whole Blood 137 mg/dL (75-99)
[2020-09-05] MEDS: SACUBITRIL/VALSARTAN 24 MG-26 MG TABLET PO SCH ×2 (08:13→19:55)
[2020-09-05] MEDS: CALCIUM CARBONATE 500 MG CHEWABLE PO SCH (08:13)
[2020-09-05] MEDS: FAMOTIDINE 20 MG TAB PO SCH ×2 (08:14→19:53)
[2020-09-05] MEDS: TORSEMIDE 20 MG TAB PO SCH ×2 (08:14→19:55)
[2020-09-05] MEDS: FERROUS SULFATE 325 MG TAB PO SCH (08:14)
[2020-09-05] MEDS: DULoxetine HCL 30 MG CAPSULE.DR PO SCH (08:14)
[2020-09-05] MEDS: DOCUSATE 100 MG CAP PO SCH (08:14)
[2020-09-05] MEDS: METOPROLOL SUCCINATE (ER) 25 MG TAB.ER.24H PO SCH (08:15)
[2020-09-05] MEDS: NITROFURANTOIN MONOHYD/M-CRYST 100 MG CAP PO SCH (08:15)
[2020-09-05] MEDS: HYDROCORTISONE 10 MG TAB PO SCH ×2 (08:15→19:54)
[2020-09-05] MEDS: MULTIVITAMINS, THERA 1 EACH TAB PO SCH (08:15)
[2020-09-05] MEDS: INSULIN ASPART (NovoLOG) 100 UNIT/ML VIAL SQ SCH ×3 (08:20→22:38)
[2020-09-05] MEDS: NON FORMULARY DRUG (Mirabegron [Myrbetriq] 50 MG Tab.Er.24h) PO SCH (08:27)
[2020-09-05 08:50] LABS: Basophils # (A) 0.03 X 10*3/uL (0.00-0.10); Basophils % (A) 0.4 %; Eosinophils # (A) 0.14 X 10*3/uL (0.04-0.35); HCT 32.2 % (39.6-50.0); HGB 10.4 g/dL (13.0-17.0); Lymphocytes # (A) 1.12 X 10*3/uL (0.90-5.00); Lymphocytes % (A) 15.7 %; MCH 31.4 pg (27.0-32.0); MCHC 32.3 g/dL (32.0-37.0); MCV 97.3 fL (80.0-97.0); Mean Platelet Volume 11.5 fL (9.5-12.2); Monocytes # (A) 0.59 X 10*3/uL (0.20-1.00); Monocytes % (A) 8.3 %; Neutrophils # (A) 5.23 X 10*3/uL (1.80-7.70); Platelet Count 146 X 10*3/uL (140-440); RBC 3.31 X 10*6/uL (4.40-5.60); RDW 15.3 % (11.5-14.5); WBC 7.15 X 10*3/uL (4.50-10.00)
[2020-09-05 09:26] LABS: ALT <8 U/L (10-49); AST 20 U/L (14-35); African American GFR (CKD) 49.5 (60.0-200.0); Albumin/Globulin Ratio 1.34 (1.60-3.17); Alkaline Phosphatase 103 U/L (41-126); BUN/Creat Ratio 15.33 Ratio (12.00-20.00); C Reactive Protein 4.8 mg/dL (0.0-0.8); Carbon Dioxide 26.8 mmol/L (21.6-31.8); Chloride 104 mmol/L (96-109); Globulin 2.9 g/dL (1.6-3.3); Glucose 145 mg/dL (70-110); Non-African American GFR(CKD) 42.7 (60.0-200.0); Potassium 4.5 mmol/L (3.5-5.5); Sodium 141 mmol/L (135-145); Total Bilirubin 0.3 mg/dL (0.3-1.2); Total Protein 6.8 g/dL (6.2-8.2)
[2020-09-05 11:18] LABS: Erythrocyte Sedimentation Rate 38 mm/Hr (0-20)
[2020-09-05 11:39] LABS: Glucose,Whole Blood 151 mg/dL (75-99)
--- NOTE | 2020-09-05 11:54 | P.PN ---
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 fib with RVR ne uropathy, for which he blamed herpes zoster rather than diabetes or sciatica for the neuropathy,, she does not have any pain in the foot, however he lost sensation on the foot. Patient apparently has been using the walker of long- term, however that day when he tripped, he tripped at home, in the carpet. Without any walker for assistance. She was seen in the office, with treatment of traumatic toe cellulitis, using doxycycline, for which she completed over 10 days worth of treatment. Patient was with the at the doctor's office on the day of admission, when they have decided to check on that toe, and recommended IV antibiotic. There is some drainage redness, and excoriation, necrotic tissue in the distal toe, with redness involving the phalanx of the toe. There is also another abrasion, in the left catalan, measuring approximately 3 cm x 4 cm. This is also well, with shallow ulceration, and drainage. No cultures were done in the emergency room, patient was subsequently admitted, with blood cultures done, IV antibiotics, cefazolin and consult to Dr. Hackett. X-ray of the foot did not show any osteomyelitis, no fracture, however there is moderate diffuse edema. We've requested arterial Dopplers to be done, to evaluate for circulation. Patient is also going to require his CPAP or BiPAP machine to be sent from home, the is going to pick this when up. Patient is also on nitrofurantoin chronically for chronic cystitis, has underlying magician cystitis,. Creatinine was 1.69 on the ER, with PCR coronavirus negative double basic count 6.7, hemoglobin 10.9, glucose 102, to 154, requested A1c to be done 09/05: Patient seen for follow-up today, comfortable today, no mood changes, has no nausea vomiting no fever, improvement of leg swelling, on IV cefazolin, cultures has been sent, arterial Dopplers currently pending, continue IV cefazolin, and Aquacel silver dressing changes. Patient compliant to CPAP use while here, hemoglobin A1c and office was 7.0, creatinine improved at 1.5 today. Earlier near circumferential cellulitis and redness has improved, still with necrotic debris on the dorsum aspect of the toe, Dr. Hackett still recommends IV antibiotic, cefazolin, pending cultures, Dopplers on the lower leg, was not done, as the patient is on comfortable with severe pain during the procedure. However dorsalis pedis pulses are not obtainable as it is in the bowl patient is immobile, difficult procedure to do the HAYDEE. Patient however slept better today, no new fevers. Blood cultures pending, Gram stain, gram-positive cocci in clusters, wound culture pending review of Systems Constitutional: Reports as per HPI, Denies anorexia, Denies chills, Denies chronic headaches, Denies chronic pain, Denies daytime sleepiness, Denies fatigue, Denies fever, Denies lethargy, Denies malaise, Denies night sweats, Denies poor appetite, Denies sweats, Denies weakness, Denies weight gain, Denies weight loss Ears, nose, mouth and throat: Reports as per HPI, Denies ant. neck pain, Denies bleeding gums, Denies dental pain, Denies dysphagia, Denies epistaxis, Denies headache, Denies hoarseness, Denies mouth pain, Denies nasal congestion, Denies nasal discharge, Denies neck fullness/pressure, Denies neck lump, Denies nose pain, Denies odynophagia, Denies post-nasal drip, Denies sinus pain, Denies sinus pressure, Denies swelling in mouth, Denies swelling in throat, Denies sore throat, Denies vertigo, Denies voice changes Cardiovascular: Reports as per HPI, Reports claudication, Reports edema, Reports shortness of breath (Chronic on exertion) Respiratory: Reports as per HPI, Denies congestion, Denies cough, Denies cough with sputum, Denies dyspnea, Denies excessive sputum, Denies hemoptysis, Denies home oxygen, Denies pain, Denies pain on inspiration, Denies pleurisy, Denies respiratory infections, Denies sleep apnea, Denies snoring, Denies wheezing Gastrointestinal: Reports as per HPI, Denies abdominal pain, Denies belching, Denies bloating, Denies BRBPR, Denies change in bowel habits, Denies coffee ground emesis, Denies constipation, Denies diarrhea, Denies dyspepsia, Denies early satiety, Denies excessive gas, Denies heartburn, Denies hematemesis, Denies hematochezia, Denies indigestion, Denies jaundice, Denies lactose intolerance, Denies loss of appetite, Denies melena, Denies nausea, Denies vomiting Genitourinary: Reports as per HPI, Reports urinary frequency (Radiation cystitis on chronic antibiotics Macrobid), Reports urinary retention Musculoskeletal: Reports arm numbness/tingling, Reports muscle weakness Objective - Vital Signs Vital signs: Vital Signs Temp 97.8 F 09/05/20 07:00 Pulse 76 09/05/20 07:00 Resp 20 09/05/20 07:00 BP 148/68 09/05/20 07:00 Pulse Ox 98 09/05/20 07:00 Intake & Output 09/04/20 09/05/20 09/05/20 18:59 06:59 18:59 Intake Total 436 160 160 Balance 436 160 160 Weight 131.542 kg Intake: Oral 436 160 160 Other: Voiding Method Diaper # Voids 1 2 - Constitutional General appearance: Present: cooperative, no acute distress - EENT Eyes: Present: EOMI, PERRLA ENT: Present: NA/AT, normal oropharynx - Neck Neck: Present: normal ROM - Respiratory Respiratory: bilateral: CTA, negative: diminished, dullness - Cardiovascular Rhythm: regular Heart sounds: normal: S1, S2 Abnormal Heart Sounds: Absent: systolic murmur, diastolic murmur, rub, S3 Gallop, S4 Gallop, click, other - Gastrointestinal General gastrointestinal: Present: normal bowel sounds, soft - Integumentary Integumentary: Present: normal, ulcer (left toe) - Neurologic Neurologic: Present: CNII-XII intact (,) - Musculoskeletal Musculoskeletal: Present: strength equal bilaterally - Psychiatric Psychiatric: Present: A&O x's 3, intact judgment & insight - Labs CBC & Chem 7: 09/05/20 05:14 09/05/20 05:14 Labs: Abnormal Lab Results - Last 24 Hours (Table) 09/04/20 09/04/20 09/05/20 Range/Units 18:09 20:08 05:14 RBC 3.31 L (4.40-5.60) X 10*6/uL Hgb 10.4 L (13.0-17.0) g/dL Hct 32.2 L (39.6-50.0) % MCV 97.3 H (80.0-97.0) fL RDW 15.3 H (11.5-14.5) % ESR 38 H (0-20) mm/Hr Est GFR (CKD-EPI)AfAm (60.0-200.0) Est GFR (CKD-EPI)NonAf (60.0-200.0) Glucose (70-110) mg/dL POC Glucose (mg/dL) 151 H 213 H (75-99) mg/dL ALT (10-49) U/L C-Reactive Protein (0.0-0.8) mg/dL Albumin/Globulin Ratio (1.60-3.17) g/dL 09/05/20 09/05/20 09/05/20 Range/Units 05:14 07:20 11:38 RBC (4.40-5.60) X 10*6/uL Hgb (13.0-17.0) g/dL Hct (39.6-50.0) % MCV (80.0-97.0) fL RDW (11.5-14.5) % ESR (0-20) mm/Hr Est GFR (CKD-EPI)AfAm 49.5 L (60.0-200.0) Est GFR (CKD-EPI)NonAf 42.7 L (60.0-200.0) Glucose 145 H (70-110) mg/dL POC Glucose (mg/dL) 137 H 151 H (75-99) mg/dL ALT <8 L (10-49) U/L C-Reactive Protein 4.8 H (0.0-0.8) mg/dL Albumin/Globulin Ratio 1.34 L (1.60-3.17) g/dL Microbiology - Last 24 Hours (Table) 09/04/20 17:45 Gram Stain - Preliminary Toe - Left First Wound Culture - Preliminary 09/03/20 14:00 Blood Culture - Preliminary Blood No Growth after 24 hours 09/03/20 14:00 Blood Culture - Preliminary Blood No Growth after 24 hours Assessment and Plan Plan: 1. Acute cellulitis involving a traumatic toe ulceration, first left toe big toe, has underlying diabetes, and neuropathy, requires IV antibiotics, cefazolin was started, from the emergency room. Dr. Block infectious disease to see, cultures to be done from the wound, blood cultures has been sent. iv abx for circ circumferential toe cellulitis, failed outpatient treatment, at risk for toe amputation, with delayed poor healing from diabetes, 2. Peripheral neuropathy, has underlying sciatica, patient has previous history of postherpetic neuralgia, involving the lower extremity, patient has lack of foot sensory awareness, and diminished pulses, arterial Doppler is requested, patient was counseled on compliance to walker use at home, on gabapentin 300 mg at bedtime Cymbalta 30 mg at bedtime 3. Diabetes mellitus type 2, on metformin 500 at bedtime, Cogentin 5 mg at bedtime hemoglobin A1c to be done 4. chf reduced ecf, on entresto bid torsemide 25 mg twice a day, currently compensated 5. Chronic ejection cystitis with recurrent UTI, on nitrofurantoin 100 mg maintenance dose Obstructive sleep apnea, on CPAP device, device to come from home, Loni in 6 mg at bedtime when necessary, patient does not agree that he needs anything for sleep H time, however it's offered to him 7. Edema, on torsemide 20 mg twice a day 8 Adrenal insufficiency, on Cortef 10 mg twice a day 9 Iron deficiency anemia, on ferrous sulfate 325 mg daily Full admission, with expected three-day hospitalization, pending cultures GI prophylaxis next DVT prophylaxis
--- NOTE | 2020-09-05 17:16 | PN ---
PROGRESS NOTE DATE OF SERVICE: 09/05/2020 REASON FOR FOLLOWUP: Left big toe and left leg wound and cellulitis. INTERVAL HISTORY: Patient is afebrile. The patient is breathing comfortably. The patient denies having any chest pain. No shortness of breath or cough. No abdominal pain or worsening pain to the left foot or left big toe. PHYSICAL EXAMINATION: Blood pressure is 148/68 with a pulse of 73, temperature is 97.8. He is 98% on room air. General description is an elderly male lying in bed in no distress. Respiratory system: Unlabored breathing, clear to auscultation anteriorly. Heart S1, S2. Regular rate and rhythm. Abdomen soft, no tenderness. Left leg swelling has decreased. Left big toe slight blackish surrounding redness improved. There is no drainage. LABS: Hemoglobin is 10.4, white count 7.15. BUN of 23, creatinine 1.5. DIAGNOSTIC IMPRESSION AND PLAN: Patient with left lower extremity traumatic injury wound and cellulitis along with left big toe traumatic injury and cellulitis. The patient is currently responding to cefazolin to continue while waiting for the culture to finalize and monitor clinical course closely. MMODL / IJN: [id number] /
[2020-09-05 17:40] LABS: Glucose,Whole Blood 144 mg/dL (75-99)
[2020-09-05] MEDS: CRANBERRY 300 MG PO SCH (19:51)
[2020-09-05] MEDS: ATORVASTATIN 10 MG TAB PO SCH (19:53)
[2020-09-05] MEDS: metFORMIN 500 MG TAB PO SCH (19:53)
[2020-09-05] MEDS: GABAPENTIN 300 MG CAP PO SCH (19:53)
[2020-09-05] MEDS: TROSPIUM CHLORIDE 20 MG TABLET PO SCH (19:54)
[2020-09-05] MEDS: LINAGLIPTIN 5 MG TABLET PO SCH (19:54)
[2020-09-05] MEDS: ENOXAPARIN 30 MG/0.3 ML SYRINGE SQ SCH (19:55)
[2020-09-05 20:16] LABS: Glucose,Whole Blood 175 mg/dL (75-99)
[2020-09-06 07:45] LABS: Glucose,Whole Blood 140 mg/dL (75-99)
[2020-09-06] MEDS: INSULIN ASPART (NovoLOG) 100 UNIT/ML VIAL SQ SCH ×4 (08:32→21:06)
[2020-09-06] MEDS: TORSEMIDE 20 MG TAB PO SCH ×2 (08:33→21:08)
[2020-09-06] MEDS: DOCUSATE 100 MG CAP PO SCH (08:34)
[2020-09-06] MEDS: NITROFURANTOIN MONOHYD/M-CRYST 100 MG CAP PO SCH (08:34)
[2020-09-06] MEDS: MULTIVITAMINS, THERA 1 EACH TAB PO SCH (08:34)
[2020-09-06] MEDS: HYDROCORTISONE 10 MG TAB PO SCH ×3 (08:34→23:01)
[2020-09-06] MEDS: FAMOTIDINE 20 MG TAB PO SCH ×2 (08:34→21:07)
[2020-09-06] MEDS: SACUBITRIL/VALSARTAN 24 MG-26 MG TABLET PO SCH ×2 (08:34→21:07)
[2020-09-06] MEDS: NON FORMULARY DRUG (Mirabegron [Myrbetriq] 50 MG Tab.Er.24h) PO SCH (08:35)
[2020-09-06] MEDS: FERROUS SULFATE 325 MG TAB PO SCH (08:35)
[2020-09-06] MEDS: DULoxetine HCL 30 MG CAPSULE.DR PO SCH (08:35)
[2020-09-06] MEDS: METOPROLOL SUCCINATE (ER) 25 MG TAB.ER.24H PO SCH (08:35)
[2020-09-06] MEDS: CALCIUM CARBONATE 500 MG CHEWABLE PO SCH (08:35)
[2020-09-06 11:56] LABS: Glucose,Whole Blood 136 mg/dL (75-99)
[2020-09-06] MEDS: allopurinoL 300 MG TAB PO SCH (14:51)
--- NOTE | 2020-09-06 16:37 | PN ---
PROGRESS NOTE DATE OF SERVICE: 09/06/2020 REASON FOR FOLLOWUP: Left big toe and left leg wound and cellulitis. INTERVAL HISTORY: The patient is afebrile. The patient is breathing comfortably. Overall pain and discomfort confined to the left big toe. The left leg is currently covered. Denies any chest pain. No shortness of breath or cough. No nausea, no vomiting. No abdominal pain or diarrhea. PHYSICAL EXAMINATION: Blood pressure 114/52, pulse of 71, temperature 98. He is 94% on room air. General description is an elderly male lying in bed in no distress. Respiratory system: Unlabored breathing, clear to auscultation. Heart: S1, S2. Regular rate and rhythm. Left big toe and leg overall swelling decreased. No drainage on the dressing. LABS: Wound culture so far negative. DIAGNOSTIC IMPRESSION AND PLAN: Patient with left big toe and left leg traumatic wound with secondary cellulitis. The patient on cefazolin, to continue while waiting for the culture to finalize. Local care to continue and continue with Aquacel dressing. MMODL / IJN: [id number] /
--- NOTE | 2020-09-06 16:48 | P.PN ---
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 fib with RVR ne uropathy, for which he blamed herpes zoster rather than diabetes or sciatica for the neuropathy,, she does not have any pain in the foot, however he lost sensation on the foot. Patient apparently has been using the walker of long- term, however that day when he tripped, he tripped at home, in the carpet. Without any walker for assistance. She was seen in the office, with treatment of traumatic toe cellulitis, using doxycycline, for which she completed over 10 days worth of treatment. Patient was with the at the doctor's office on the day of admission, when they have decided to check on that toe, and recommended IV antibiotic. There is some drainage redness, and excoriation, necrotic tissue in the distal toe, with redness involving the phalanx of the toe. There is also another abrasion, in the left catalan, measuring approximately 3 cm x 4 cm. This is also well, with shallow ulceration, and drainage. No cultures were done in the emergency room, patient was subsequently admitted, with blood cultures done, IV antibiotics, cefazolin and consult to Dr. Hackett. X-ray of the foot did not show any osteomyelitis, no fracture, however there is moderate diffuse edema. We've requested arterial Dopplers to be done, to evaluate for circulation. Patient is also going to require his CPAP or BiPAP machine to be sent from home, the is going to pick this when up. Patient is also on nitrofurantoin chronically for chronic cystitis, has underlying magician cystitis,. Creatinine was 1.69 on the ER, with PCR coronavirus negative double basic count 6.7, hemoglobin 10.9, glucose 102, to 154, requested A1c to be done 09/05: Patient seen for follow-up today, comfortable today, no mood changes, has no nausea vomiting no fever, improvement of leg swelling, on IV cefazolin, cultures has been sent, arterial Dopplers currently pending, continue IV cefazolin, and Aquacel silver dressing changes. Patient compliant to CPAP use while here, hemoglobin A1c and office was 7.0, creatinine improved at 1.5 today. Earlier near circumferential cellulitis and redness has improved, still with necrotic debris on the dorsum aspect of the toe, Dr. Hackett still recommends IV antibiotic, cefazolin, pending cultures, Dopplers on the lower leg, was not done, as the patient is on comfortable with severe pain during the procedure. However dorsalis pedis pulses are not obtainable as it is in the bowl patient is immobile, difficult procedure to do the HAYDEE. Patient however slept better today, no new fevers. Blood cultures pending, Gram stain, gram-positive cocci in clusters, wound culture pending 09/06, wound is improving well on the left catalan, and left toe, no drainage noted, cultures are currently pending, awaiting final recommendation from Dr. Block for antibiotic management, is aware that the is currently admitted, and another medical floor. We are going to try to coordinate his discharge, in the next 24 hours once cleared by infectious disease. IV cefazolin Patient would need home care skilled for wound care, transfer to principal planner to anticipate discharge this Tuesday review of Systems Constitutional: Reports as per HPI, Denies anorexia, Denies chills, Denies chronic headaches, Denies chronic pain, Denies daytime sleepiness, Denies fatigue, Denies fever, Denies lethargy, Denies malaise, Denies night sweats, De nies poor appetite, Denies sweats, Denies weakness, Denies weight gain, Denies weight loss Ears, nose, mouth and throat: Reports as per HPI, Denies ant. neck pain, Denies bleeding gums, Denies dental pain, Denies dysphagia, Denies epistaxis, Denies headache, Denies hoarseness, Denies mouth pain, Denies nasal congestion, Denies nasal discharge, Denies neck fullness/pressure, Denies neck lump, Denies nose pain, Denies odynophagia, Denies post-nasal drip, Denies sinus pain, Denies sinus pressure, Denies swelling in mouth, Denies swelling in throat, Denies sore throat, Denies vertigo, Denies voice changes Cardiovascular: Reports as per HPI, Reports claudication, Reports edema, Reports shortness of breath (Chronic on exertion) Respiratory: Reports as per HPI, Denies congestion, Denies cough, Denies cough with sputum, Denies dyspnea, Denies excessive sputum, Denies hemoptysis, Denies home oxygen, Denies pain, Denies pain on inspiration, Denies pleurisy, Denies respiratory infections, Denies sleep apnea, Denies snoring, Denies wheezing Gastrointestinal: Reports as per HPI, Denies abdominal pain, Denies belching, Denies bloating, Denies BRBPR, Denies change in bowel habits, Denies coffee g round emesis, Denies constipation, Denies diarrhea, Denies dyspepsia, Denies early satiety, Denies excessive gas, Denies heartburn, Denies hematemesis, Denies hematochezia, Denies indigestion, Denies jaundice, Denies lactose intolerance, Denies loss of appetite, Denies melena, Denies nausea, Denies vomiting Genitourinary: Reports as per HPI, Reports urinary frequency (Radiation cystitis on chronic antibiotics Macrobid), Reports urinary retention Musculoskeletal: Reports arm numbness/tingling, Reports muscle weakness Objective - Vital Signs Vital signs: Vital Signs Temp 98.5 F 09/06/20 07:46 Pulse 69 09/06/20 07:46 Resp 18 09/06/20 07:46 BP 126/69 09/06/20 07:46 Pulse Ox 98 09/06/20 07:46 Intake & Output 09/05/20 09/06/20 09/06/20 18:59 06:59 18:59 Intake Total 360 Balance 360 Intake: Oral 360 Other: Voiding Method Diaper # Voids 3 3 - Constitutional General appearance: Present: cooperative, no acute distress - EENT Eyes: Present: anicteric sclerae, EOMI, normal appearance ENT: Present: NA/AT - Neck Neck: Present: normal ROM - Respiratory Respiratory: bilateral: CTA, negative: diminished, dullness - Cardiovascular Rhythm: regular Heart sounds: normal: S1, S2 - Gastrointestinal General gastrointestinal: Present: normal bowel sounds, soft - Integumentary Integumentary Comment(s): see previous Integumentary: Present: normal - Neurologic Neurologic: Present: CNII-XII intact - Musculoskeletal Musculoskeletal: Present: strength equal bilaterally - Psychiatric Psychiatric: Present: A&O x's 3, appropriate affect - Labs CBC & Chem 7: 09/05/20 05:14 09/05/20 05:14 Labs: Abnormal Lab Results - Last 24 Hours (Table) 09/05/20 09/05/20 09/05/20 Range/Units 05:14 17:38 20:13 POC Glucose (mg/dL) 144 H 175 H (75-99) mg/dL Hemoglobin A1c 7.0 H (4.0-6.0) % 09/06/20 09/06/20 Range/Units 07:44 11:55 POC Glucose (mg/dL) 140 H 136 H (75-99) mg/dL Hemoglobin A1c (4.0-6.0) % Microbiology - Last 24 Hours (Table) 09/03/20 14:00 Blood Culture - Preliminary Blood No Growth after 48 hours 09/03/20 14:00 Blood Culture - Preliminary Blood No Growth after 48 hours 09/04/20 17:45 Gram Stain - Preliminary Toe - Left First Wound Culture - Preliminary Assessment and Plan Plan: 1. Acute cellulitis involving a traumatic toe ulceration, first left toe big toe, has underlying diabetes, and neuropathy, requires IV antibiotics, cefazolin was started, from the emergency room. Dr. Block infectious disease to see, cultures to be done from the wound, blood cultures has been sent. iv abx for circ circumferential toe cellulitis, failed outpatient treatment, at risk for toe amputation, with delayed poor healing from diabetes, 2. Peripheral neuropathy, has underlying sciatica, patient has previous history of postherpetic neuralgia, involving the lower extremity, patient has lack of foot sensory awareness, and diminished pulses, arterial Doppler is requested, patient was counseled on compliance to walker use at home, on gabapentin 300 mg at bedtime Cymbalta 30 mg at bedtime 3. Diabetes mellitus type 2, on metformin 500 at bedtime, Cogentin 5 mg at bedtime hemoglobin A1c to be done 4. chf reduced ecf, on entresto bid torsemide 25 mg twice a day, currently compensated 5. Chronic ejection cystitis with recurrent UTI, on nitrofurantoin 100 mg maintenance dose Obstructive sleep apnea, on CPAP device, device to come from home, Loni in 6 mg at bedtime when necessary, patient does not agree that he needs anything for sleep H time, however it's offered to him 7. Edema, on torsemide 20 mg twice a day 8 Adrenal insufficiency, on Cortef 10 mg twice a day 9 Iron deficiency anemia, on ferrous sulfate 325 mg daily Full admission, with expected three-day hospitalization, pending cultures GI prophylaxis next DVT prophylaxis
[2020-09-06 17:29] LABS: Glucose,Whole Blood 141 mg/dL (75-99)
[2020-09-06 20:29] LABS: Glucose,Whole Blood 160 mg/dL (75-99)
[2020-09-06] MEDS: ENOXAPARIN 30 MG/0.3 ML SYRINGE SQ SCH (21:05)
[2020-09-06] MEDS: ATORVASTATIN 10 MG TAB PO SCH (21:06)
[2020-09-06] MEDS: metFORMIN 500 MG TAB PO SCH (21:06)
[2020-09-06] MEDS: GABAPENTIN 300 MG CAP PO SCH (21:06)
[2020-09-06] MEDS: LINAGLIPTIN 5 MG TABLET PO SCH (21:07)
[2020-09-06] MEDS: TROSPIUM CHLORIDE 20 MG TABLET PO SCH (21:08)
[2020-09-06] MEDS: CRANBERRY 300 MG PO SCH (21:09)
[2020-09-07] MEDS: NON FORMULARY DRUG (Mirabegron [Myrbetriq] 50 MG Tab.Er.24h) PO SCH (06:53)
[2020-09-07 06:54] LABS: Glucose,Whole Blood 126 mg/dL (75-99)
[2020-09-07] MEDS: INSULIN ASPART (NovoLOG) 100 UNIT/ML VIAL SQ SCH ×2 (06:54→11:39)
[2020-09-07] MEDS: FERROUS SULFATE 325 MG TAB PO SCH (07:07)
[2020-09-07] MEDS: DOCUSATE 100 MG CAP PO SCH (07:07)
[2020-09-07] MEDS: FAMOTIDINE 20 MG TAB PO SCH (07:07)
[2020-09-07] MEDS: METOPROLOL SUCCINATE (ER) 25 MG TAB.ER.24H PO SCH (07:07)
[2020-09-07] MEDS: CALCIUM CARBONATE 500 MG CHEWABLE PO SCH (07:08)
[2020-09-07] MEDS: HYDROCORTISONE 10 MG TAB PO SCH (07:08)
[2020-09-07] MEDS: MULTIVITAMINS, THERA 1 EACH TAB PO SCH (07:08)
[2020-09-07] MEDS: SACUBITRIL/VALSARTAN 24 MG-26 MG TABLET PO SCH (07:09)
[2020-09-07] MEDS: NITROFURANTOIN MONOHYD/M-CRYST 100 MG CAP PO SCH (07:09)
[2020-09-07] MEDS: TORSEMIDE 20 MG TAB PO SCH (07:09)
[2020-09-07] MEDS: DULoxetine HCL 30 MG CAPSULE.DR PO SCH (08:20)
[2020-09-07 11:34] LABS: Glucose,Whole Blood 132 mg/dL (75-99)
[2020-09-07 14:36] VITALS: BP 132/71; PULSE 73; RESP 16; TEMP 98.3
--- NOTE | 2020-09-07 17:01 | P.DS ---
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 fib with RVR neuropathy, for which he blamed herpes zoster rather than diabetes or sciatica for the neuropathy,, she does not have any pain in the foot, however he lost sensation on the foot. Patient apparently has been using the walker of long- term, however that day when he tripped, he tripped at home, in the carpet. Without any walker for assistance. She was seen in the office, with treatment of traumatic toe cellulitis, using doxycycline, for which she completed over 10 days worth of treatment. Patient was with the at the doctor's office on the day of admission, when they have decided to check on that toe, and recommended IV antibiotic. There is some drainage redness, and excoriation, necrotic tissue in the distal toe, with redness involving the phalanx of the toe. There is also another abrasion, in the left catalan, measuring approximately 3 cm x 4 cm. This is also well, with shallow ulceration, and drainage. No cultures were done in the emergency room, patient was subsequently admitted, with blood cultures done, IV antibiotics, cefazolin and consult to Dr. Hackett. X-ray of the foot did not show any osteomyelitis, no fracture, however there is moderate diffuse edema. We've requested arterial Dopplers to be done, to evaluate for circulation. Patient is also going to require his CPAP or BiPAP machine to be sent from home, the is going to pick this when up. Patient is also on nitrofurantoin chronically for chronic cystitis, has underlying magician cystitis,. Creatinine was 1.69 on the ER, with PCR coronavirus negative double basic count 6.7, hemoglobin 10.9, glucose 102, to 154, requested A1c to be done 09/05: Patient seen for follow-up today, comfortable today, no mood changes, has no nausea vomiting no fever, improvement of leg swelling, on IV cefazolin, cultures has been sent, arterial Dopplers currently pending, continue IV cefazolin, and Aquacel silver dressing changes. Patient compliant to CPAP use while here, hemoglobin A1c and office was 7.0, creatinine improved at 1.5 today. Earlier near circumferential cellulitis and redness has improved, still with necrotic debris on the dorsum aspect of the toe, Dr. Hackett still recommends IV antibiotic, cefazolin, pending cultures, Dopplers on the lower leg, was not done, as the patient is on comfortable with severe pain during the procedure. However dorsalis pedis pulses are not obtainable as it is in the bowl patient is immobile, difficult procedure to do the HAYDEE. Patient however slept better today, no new fevers. Blood cultures pending, Gram stain, gram-positive cocci in clusters, wound culture pending 09/06, wound is improving well on the left catalan, and left toe, no drainage noted, cultures are currently pending, awaiting final recommendation from Dr. Taylor for antibiotic management, is aware that the is currently admitted, and another medical floor. We are going to try to coordinate his discharge, in the next 24 hours once cleared by infectious disease. IV cefazolin Patient would need home care skilled for wound care, transfer to network planner to anticipate discharge this Thursday 09/07, wound cultures only gross normal adrian, blood cultures negative growth for 72 hours, patient is feeling well, wound is improving and healing appropriately, patient is cleared by discharge from Dr. Taylor, with Keflex 500 3 times a day for 10 days, will follow up with wound clinic with Dr. Taylor, local wound care no nausea no chest pain no diarrhea, patient advised regarding avoidance of falls, and controll of diabetes. Patient to continue on Aquacel silver dressing on the left catalan wound, and the toe wound infection. Follow-up with Dr. Self one week, follow-up with Dr. Taylor wound clinic, no pain medications required per patient FINAL DIAGNOSIS 1. Acute cellulitis involving a traumatic toe ulceration, first left toe big toe, has underlying diabetes, and neuropathy, requires IV antibiotics, cefazolin was started, from the emergency room. Dr. Taylor infectious disease to see, cultures to be done from the wound, blood cultures has been sent. iv abx for circ circumferential toe cellulitis, failed outpatient treatment, at risk for toe amputation, with delayed poor healing from diabetes, required IV cefazolin, discharged with oral Keflex 500 3 times a day 2. Peripheral neuropathy, has underlying sciatica, patient has previous history of postherpetic neuralgia, involving the lower extremity, patient has lack of foot sensory awareness, and diminished pulses, arterial Doppler is requested, patient was counseled on compliance to walker use at home, on gabapentin 300 mg at bedtime Cymbalta 30 mg at bedtime 3. Diabetes mellitus type 2, on metformin 500 at bedtime, Cogentin 5 mg at bedtime hemoglobin A1c 7.0 4. chf reduced ecf, on entresto bid torsemide 25 mg twice a day, currently compensated 5. Chronic ejection cystitis with recurrent UTI, on nitrofurantoin 100 mg maintenance dose Obstructive sleep apnea, on CPAP device, device to come from home, Loni in 6 mg at bedtime when necessary, patient does not agree that he needs anything for sleep H time, however it's offered to him 7. Edema, on torsemide 20 mg twice a day 8 Adrenal insufficiency, on Cortef 10 mg twice a day 9 Iron deficiency anemia, on ferrous sulfate 325 mg daily Full admission, with expected three-day hospitalization, pending cultures GI prophylaxis next DVT prophylaxis Discharge Medication List Docusate [Colace] 100 mg PO DAILY 03/01/17 [History] Glucosam/Donnie-Msm1/C/Pardeep/Bosw [Glucosamine-Chondroitin Tablet] 1 tab PO HS 03/01/17 [History] Multivitamins, Thera [Multivitamin (formulary)] 1 tab PO DAILY 03/01/17 [History] allopurinoL [Zyloprim] 300 mg PO Q48H 03/01/17 [History] Mirabegron [Myrbetriq] 50 mg PO DAILY 06/27/17 [History] sitaGLIPtin PHOS/metFORMIN HCL [Janumet 50-500 mg Tablet] 1 tab PO HS 06/27/17 [History] Ferrous Sulfate [Iron (65 MG Elemental)] 325 mg PO DAILY 02/25/18 [History] Gabapentin [Neurontin] 300 mg PO HS #0 03/06/18 [Rx] Hydrocortisone [Cortef] 10 mg PO BID #60 tablet 05/18/18 [Rx] Celecoxib [CeleBREX] 200 mg PO DAILY PRN 12/24/19 [History] Cranberry 300 mg PO HS 12/24/19 [History] DULoxetine HCL [Cymbalta] 30 mg PO DAILY 12/24/19 [History] Rosuvastatin [Crestor] 10 mg PO HS 12/24/19 [History] Torsemide [Demadex] 20 mg PO BID 12/24/19 [History] Turmeric Root Extract [Turmeric] 500 mg PO DAILY 12/24/19 [History] Calcium Carbonate [Calcium] 600 mg PO DAILY 09/03/20 [History] Metoprolol Succinate [Toprol XL] 25 mg PO DAILY 09/03/20 [History] Nitrofurantoin Monohyd/M-Cryst [Macrobid] 100 mg PO AC-BRKFST 09/03/20 [History] Sacubitril/Valsartan [Entresto 24 mg-26 mg Tablet] 1 tab PO BID 09/03/20 [History] Silver Sulfadiazine [SSD 1% Cream] 1 applic TOPICAL BID 09/03/20 [History] Solifenacin Succinate 5 mg PO HS 09/03/20 [History] Cephalexin [Keflex] 500 mg PO TID 1 Days #30 cap 09/07/20 [Rx] Plan - Discharge Summary Discharge Rx Participant: Yes New Discharge Prescriptions: New Cephalexin [Keflex] 500 mg PO TID 1 Days #30 cap Continue Glucosam/Donnie-Msm1/C/Pardeep/Bosw [Glucosamine-Chondroitin Tablet] 1 tab PO HS Multivitamins, Thera [Multivitamin (formulary)] 1 tab PO DAILY Docusate [Colace] 100 mg PO DAILY allopurinoL [Zyloprim] 300 mg PO Q48H sitaGLIPtin PHOS/metFORMIN HCL [Janumet 50-500 mg Tablet] 1 tab PO HS Mirabegron [Myrbetriq] 50 mg PO DAILY Ferrous Sulfate [Iron (65 MG Elemental)] 325 mg PO DAILY Gabapentin [Neurontin] 300 mg PO HS #0 Hydrocortisone [Cortef] 10 mg PO BID #60 tablet Celecoxib [CeleBREX] 200 mg PO DAILY PRN PRN Reason: Pain DULoxetine HCL [Cymbalta] 30 mg PO DAILY Torsemide [Demadex] 20 mg PO BID Turmeric Root Extract [Turmeric] 500 mg PO DAILY Rosuvastatin [Crestor] 10 mg PO HS Cranberry 300 mg PO HS Solifenacin Succinate 5 mg PO HS Metoprolol Succinate [Toprol XL] 25 mg PO DAILY Sacubitril/Valsartan [Entresto 24 mg-26 mg Tablet] 1 tab PO BID Silver Sulfadiazine [SSD 1% Cream] 1 applic TOPICAL BID Nitrofurantoin Monohyd/M-Cryst [Macrobid] 100 mg PO AC-BRKFST Calcium Carbonate [Calcium] 600 mg PO DAILY Discontinued Doxycycline Hyclate 100 mg PO BID Discharge Medication List Docusate [Colace] 100 mg PO DAILY 03/01/17 [History] Glucosam/Donnie-Msm1/C/Pardeep/Bosw [Glucosamine-Chondroitin Tablet] 1 tab PO HS 03/01/17 [History] Multivitamins, Thera [Multivitamin (formulary)] 1 tab PO DAILY 03/01/17 [History] allopurinoL [Zyloprim] 300 mg PO Q48H 03/01/17 [History] Mirabegron [Myrbetriq] 50 mg PO DAILY 06/27/17 [History] sitaGLIPtin PHOS/metFORMIN HCL [Janumet 50-500 mg Tablet] 1 tab PO HS 06/27/17 [History] Ferrous Sulfate [Iron (65 MG Elemental)] 325 mg PO DAILY 02/25/18 [History] Gabapentin [Neurontin] 300 mg PO HS #0 03/06/18 [Rx] Hydrocortisone [Cortef] 10 mg PO BID #60 tablet 05/18/18 [Rx] Celecoxib [CeleBREX] 200 mg PO DAILY PRN 12/24/19 [History] Cranberry 300 mg PO HS 12/24/19 [History] DULoxetine HCL [Cymbalta] 30 mg PO DAILY 12/24/19 [History] Rosuvastatin [Crestor] 10 mg PO HS 12/24/19 [History] Torsemide [Demadex] 20 mg PO BID 12/24/19 [History] Turmeric Root Extract [Turmeric] 500 mg PO DAILY 12/24/19 [History] Calcium Carbonate [Calcium] 600 mg PO DAILY 09/03/20 [History] Metoprolol Succinate [Toprol XL] 25 mg PO DAILY 09/03/20 [History] Nitrofurantoin Monohyd/M-Cryst [Macrobid] 100 mg PO AC-BRKFST 09/03/20 [History] Sacubitril/Valsartan [Entresto 24 mg-26 mg Tablet] 1 tab PO BID 09/03/20 [History] Silver Sulfadiazine [SSD 1% Cream] 1 applic TOPICAL BID 09/03/20 [History] Solifenacin Succinate 5 mg PO HS 09/03/20 [History] Cephalexin [Keflex] 500 mg PO TID 1 Days #30 cap 09/07/20 [Rx] Follow up Appointment(s)/Referral(s): Alfredo Self MD [Primary Care Provider] - 1-2 days Charli Taylor MD [STAFF PHYSICIAN] - 1 Week Activity/Diet/Wound Care/Special Instructions: Dry aquacel silver dressign to the wound , change q48hr , follow up with Dr taylor in wound care center , call [phone] to make an appointment on tuesday Discharge Disposition: HOME SELF-CARE
--- NOTE | 2020-09-10 10:09 | P.ARTDOP ---
Arterial Doppler LOWER EXTREMITY ARTERIAL DOPPLER: DATE OF SERVICE: 09/04/2020 Reason for study: Ulcers left first and second toes. Doppler waveforms: Atypical throughout on the right. Multiphasic at the left femoral and popliteal.. Pulse volume recording: []. Pressure gradients: Potentially a below the knee gradient on the right. Ankle-brachial indices: Only recorded on the right at 0.75. Toe brachial indices: [] on the right, [] on the left Impression: Suspect diffuse calcific wall disease. Dorsalis pedis on both sides is inaudible. Suspect moderate bilateral fem-pop disease. Possible right iliac component. Consider vascular specialty consultation..
== END 2020-09-07 15:26 | disposition home or self-care (01) | DRG 638 ==
LOC: EC 12:52 → 6NMEDSUR 15:28 → OBSVTOIN 09-05 20:09 → 4SSUR 09-07 00:38
PROVIDERS: ADMIT Family Medicine; ATTEND Family Medicine
DX: E11.621 Type 2 diabetes mellitus with foot ulcer (principal); I42.9 Cardiomyopathy, unspecified; E27.40 Unspecified adrenocortical insufficiency; N30.40 Irradiation cystitis without hematuria; I25.10 Atherosclerotic heart disease of native coronary artery without angina pectoris; E78.5 Hyperlipidemia, unspecified; M19.90 Unspecified osteoarthritis, unspecified site; Z95.1 Presence of aortocoronary bypass graft; Z87.891 Personal history of nicotine dependence; Z20.822 Contact with and (suspected) exposure to COVID-19; Z82.49 Family history of ischemic heart disease and other diseases of the circulatory system; Z83.3 Family history of diabetes mellitus; Z85.46 Personal history of malignant neoplasm of prostate; E11.40 Type 2 diabetes mellitus with diabetic neuropathy, unspecified; E11.628 Type 2 diabetes mellitus with other skin complications; L03.032 Cellulitis of left toe; M54.30 Sciatica, unspecified side; I11.0 Hypertensive heart disease with heart failure; I50.9 Heart failure, unspecified; G47.33 Obstructive sleep apnea (adult) (pediatric); D50.9 Iron deficiency anemia, unspecified; S92.402A Displaced unspecified fracture of left great toe, initial encounter for closed fracture; Z79.84 Long term (current) use of oral hypoglycemic drugs; I48.91 Unspecified atrial fibrillation; Z79.1 Long term (current) use of non-steroidal anti-inflammatories (NSAID); Z79.899 Other long term (current) drug therapy; Z87.440 Personal history of urinary (tract) infections; Z95.2 Presence of prosthetic heart valve
CPT/HCPCS: 36415; 80053; 83036; 83605; 85025; 85610; 85652; 85730; 86140; 87040; 87070; 87205; 87635; 93922; 99284; 99285

== ENCOUNTER 2020-12-07 04:10 | Emergency (ER) | payer MEDICARE ==
[2020-12-07 04:45] VITALS: TEMP 98.6
[2020-12-07 05:00] LABS: Basophils # (A) 0.1 k/uL (0-0.2); Basophils % (A) 1 %; Eosinophils # (A) 0.2 k/uL (0-0.7); Eosinophils % (A) 3 %; HCT 38.6 % (39.0-53.0); HGB 12.1 gm/dL (13.0-17.5); Lymphocytes # (A) 2.1 k/uL (1.0-4.8); Lymphocytes % (A) 28 %; MCH 30.7 pg (25.0-35.0); MCHC 31.3 g/dL (31.0-37.0); MCV 98.1 fL (80.0-100.0); Mean Platelet Volume 8.9; Monocytes # (A) 0.3 k/uL (0-1.0); Monocytes % (A) 4 %; Neutrophils # (A) 4.7 k/uL (1.3-7.7); Neutrophils % (A) 63 %; Platelet Count 241 k/uL (150-450); RBC 3.93 m/uL (4.30-5.90); RDW 14.9 % (11.5-15.5); WBC 7.4 k/uL (3.8-10.6)
[2020-12-07 05:12] LABS: Appearance,Urine Clear (Clear); Bacteria,Urine Many /hpf; Bilirubin,Urine Negative (Negative); Blood,Urine Trace (Negative); Color,Urine Yellow; Glucose,Urine (UA) Negative (Negative); Ketones,Urine Negative (Negative); Leukocyte Esterase,Urine Large (Negative); Mucus,Urine Rare /hpf; Nitrite,Urine Positive (Negative); Protein,Urine Trace (Negative); RBC,Urine 9 /hpf (0-5); Specific Gravity,Urine 1.015 (1.001-1.035); Squamous Epithelial Cell,Urine <1 /hpf (0-4); Urobilinogen,Urine <2.0 mg/dL (<2.0); WBC,Urine 86 /hpf (0-5)
[2020-12-07 05:13] LABS: Amphetamine Screen,Urine Not Detected (NotDetected); Barbiturate Screen,Urine Not Detected (NotDetected); Benzodiazepines Screen,Urine Not Detected (NotDetected); Cocaine Screen,Urine Not Detected (NotDetected); Methadone Screen, Urine Not Detected (NotDetected); Opiate Screen,Urine Not Detected (NotDetected); Oxycodone Screen, Urine Not Detected (NotDetected); Phencyclidine Screen,Urine Not Detected (NotDetected); Tricyclic Antidepressant,Urine Not Detected (NotDetected); Urn Cannabinoid Scrn Not Detected (NotDetected)
[2020-12-07 05:14] LABS: ALT 26 U/L (4-49); AST 42 U/L (17-59); African American GFR (CKD) 43 (>60 ml/min/1.73 sqM); Albumin 4.4 g/dL (3.5-5.0); Alcohol <10 mg/dL; Alkaline Phosphatase 94 U/L (38-126); Anion Gap 16 mmol/L; Blood Urea Nitrogen 22 mg/dL (9-20); Calcium 9.7 mg/dL (8.4-10.2); Carbon Dioxide 19 mmol/L (22-30); Chloride 102 mmol/L (98-107); Glucose 276 mg/dL (74-99); Non-African American GFR(CKD) 37 (>60 ml/min/1.73 sqM); Potassium 4.4 mmol/L (3.5-5.1); Sodium 137 mmol/L (137-145); Total Bilirubin 0.5 mg/dL (0.2-1.3); Total Protein 7.8 g/dL (6.3-8.2)
--- NOTE | 2020-12-07 05:16 | XR ---
EXAMINATION TYPE: XR chest 1V portable DATE OF EXAM: 12/07/2020 COMPARISON: 05/14/2018 HISTORY: Altered mental status TECHNIQUE: Single view FINDINGS: Heart is enlarged. There is pulmonary vascular congestion. There are sternal wires. There a re chest leads. IMPRESSION: Congestive heart failure appears new compared to last exam.
--- NOTE | 2020-12-07 05:19 | CT ---
EXAMINATION TYPE: CT brain leticia case DATE OF EXAM: 12/07/2020 COMPARISON: None HISTORY: fall CT DLP: 1871.2 mGycm Automated exposure control for dose reduction was used. There is cerebral cortical atrophy. There is no mass effect nor midline shift. There is no sign of in tracranial hemorrhage. Calvarium is intact. There is normal aeration of the mastoid sinuses. Cervical vertebra have normal alignment. There is large anterior bridging osteophyte formation in the mid and lower cervical spine. There is also calcification in the posterior longitudinal ligament fro m C3 to C5 with some narrowing of the spinal canal. Spinal canal is narrowed to 4 to 5 mm at C4-5. Fa cet joints are intact. IMPRESSION: Cerebral atrophy. No acute intracranial abnormality. Multilevel moderate spur formation in the cervical spine. Spinal stenosis at C4-5. No fracture.
[2020-12-07] MEDS ORDERED: SODIUM CHLORIDE 0.9% 1,000 ML IV ONE ×2 (05:20→05:21)
[2020-12-07] MEDS ORDERED: SODIUM CHLORIDE 0.9% 1,000 ML IV STA (05:20)
[2020-12-07 05:23] LABS: INR 0.9 (<1.2); Partial Thromboplastin Time 23.8 sec (22.0-30.0); Prothrombin Time 9.7 sec (9.0-12.0)
--- NOTE | 2020-12-07 06:13 | CT ---
EXAMINATION TYPE: CT angio thor/abd pel aorta DATE OF EXAM: 12/07/2020 COMPARISON: 02/25/2017 HISTORY: pain CT DLP: 4924.7 mGycm Automated exposure control for dose reduction was used. CONTRAST: Performed with IV Contrast, patient injected with 80 mL of Isovue 370. There are 3-D post processed images. Images obtained from the thoracic inlet to the floor the pelvis. Within without contrast. There is normal branching pattern of the great vessels on the aortic arch. There is 4.4 cm aneurysm o f the ascending aorta. There is no mediastinal adenopathy. There are no hilar masses. Pulmonary arter ies appear intact. There is some mild plaque in the descending thoracic aorta. There is some increase d interstitial density in both lungs. There is minimal pleural thickening at the lung bases. Heart is enlarged. There is no pericardial effusion. Abdominal aorta is intact. There is arterial flow in the celiac artery and superior mesenteric artery . There is arterial flow in both renal arteries and the iliac and femoral arteries. There is no evide nce of aneurysm. There is variable plaque formation in the abdominal aorta and its branches. I do not see any dissection. There is at least 60% stenosis of the origin of the left external iliac artery. The internal iliac arteries show variable stenosis of the 50%. Liver spleen stomach pancreas gallbladder appear intact. Bile ducts are not dilated. There is complex cyst on the posterior left kidney with calcified wall and measures almost 5 cm in diameter. There is no hydronephrosis. There is no retroperitoneal adenopathy. There is some retained fecal material in the large bowel. Appendix appears normal. There is no mesenteric edema. There is no ascites or free a ir. There is some rectal wall thickening. There is slight thickening also of the sigmoid colon wall. There is multilevel lumbar and thoracic spondylotic changes. There is no compression fracture. There are sternal wires. IMPRESSION: Atherosclerotic vascular disease. No aortic dissection. There is aneurysm of the ascending aorta. Cardiomegaly. Interstitial pulmonary infiltrates could relate to some pneumonia or heart failure. Com plex left renal cyst not significantly different than old CT scan of 02/25/2017 and therefore very lik eri benign. Interstitial infiltrates are new compared to old exam. There are some sigmoid and rectal changes that could relate to colitis that is also present on old ex am
[2020-12-07] MEDS ORDERED: SODIUM CHLORIDE 0.9% 500 ML 500 ML IV STA (06:48)
[2020-12-07] MEDS ORDERED: MORPHINE SULFATE 4 MG/ML SYRINGE IV STA (06:48)
[2020-12-07 07:11] VITALS: RESP 18
[2020-12-07] MEDS ORDERED: ETOMIDATE 2 MG/ML 10 ML VIAL IVP STA (07:24)
[2020-12-07] MEDS ORDERED: SUCCINYLCHOLINE CHLORIDE VIAL 200 MG/10 ML VIAL IV STA (07:25)
[2020-12-07] MEDS ORDERED: LORazepam 2 MG/ML INJ IV STA (07:28)
[2020-12-07 07:32] VITALS: BP 118/75
[2020-12-07 07:36] VITALS: PULSE 96
[2020-12-07] MEDS ORDERED: SODIUM BICARB 8.4% 50 ML SYR (1 MEQ/ML) ONE (07:46)
[2020-12-07] MEDS ORDERED: EPINEPHrine 10 ML SYRINGE (0.1 MG/ML) ONE (07:46)
--- NOTE | 2020-12-07 08:13 | ED ---
Syncope HPI - General Chief Complaint: Altered Mental Status Stated Complaint: Altered Mental Status Time Seen by Provider: 12/07/20 04:13 Source: patient, EMS Limitations: altered mental status - History of Present Illness Initial Comments: 's patient is an 84-year-old man brought by ambulance to be evaluated after he had reportedly slipped from the bed to the floor. The patient does not recall the episode. Upper the patient's she woke to find him sliding down the esthela e of the bed onto the floor. He passed out, was sweating, so she activated EMS. When I interview the patient, he is awake and alert. He does not know why he is in the hospital, but does recognize she is in the hospital. He is feeling somewhat short of breath. He is denying chest pain. He does complain of back pain and states it feels like that his folding him. The patient's states he frequently complains of back pain. Patient denies abdominal pain, nausea vomiting, palpitations. Per the patient's he had been in his usual state of health throughout yesterday. Review of records reveals that the patient has had previous admissions for altered mental status and sepsis and found to have urinary tract infection possibly related to prostate. MD Complaint: collapsed -: minutes(s) Prodromal Symptoms: none Witnessed: yes - by bystander Injuries Sustained Associated with Event: None Current Symptoms: shortness of breath Context: getting out of bed Treatments Prior to Arrival: IV fluids - Related Data Home Medications Medication Instructions Recorded Confirmed Docusate [Colace] 100 mg PO DAILY 03/01/17 09/03/20 Glucosam/Donnie-Msm1/C/Pardeep/Bosw 1 tab PO HS 03/01/17 09/03/20 [Glucosamine-Chondroitin Tablet] Multivitamins, Thera [Multivitamin 1 tab PO DAILY 03/01/17 09/03/20 (formulary)] allopurinoL [Zyloprim] 300 mg PO Q48H 03/01/17 09/03/20 Mirabegron [Myrbetriq] 50 mg PO DAILY 06/27/17 09/03/20 sitaGLIPtin PHOS/metFORMIN HCL 1 tab PO HS 06/27/17 09/03/20 [Janumet 50-500 mg Tablet] Ferrous Sulfate [Iron (65 MG 325 mg PO DAILY 02/25/18 09/03/20 Elemental)] Celecoxib [CeleBREX] 200 mg PO DAILY PRN 12/24/19 09/03/20 Cranberry 300 mg PO HS 12/24/19 09/03/20 DULoxetine HCL [Cymbalta] 30 mg PO DAILY 12/24/19 09/03/20 Rosuvastatin [Crestor] 10 mg PO HS 12/24/19 09/03/20 Torsemide [Demadex] 20 mg PO BID 12/24/19 09/03/20 Turmeric Root Extract [Turmeric] 500 mg PO DAILY 12/24/19 09/03/20 Calcium Carbonate [Calcium] 600 mg PO DAILY 09/03/20 09/03/20 Metoprolol Succinate [Toprol XL] 25 mg PO DAILY 09/03/20 09/03/20 Nitrofurantoin Monohyd/M-Cryst 100 mg PO AC-BRKFST 09/03/20 09/03/20 [Macrobid] Sacubitril/Valsartan [Entresto 24 1 tab PO BID 09/03/20 09/03/20 mg-26 mg Tablet] Silver Sulfadiazine [SSD 1% Cream] 1 applic TOPICAL BID 09/03/20 09/03/20 Solifenacin Succinate 5 mg PO HS 09/03/20 09/03/20 Previous Rx's Medication Instructions Recorded Gabapentin [Neurontin] 300 mg PO HS #0 03/06/18 Hydrocortisone [Cortef] 10 mg PO BID #60 tablet 05/18/18 Cephalexin [Keflex] 500 mg PO TID 1 Days #30 cap 09/07/20 Allergies Allergy/AdvReac Type Severity Reaction Status Date / Time No Known Allergies Allergy Verified 09/03/20 15:44 Review of Systems ROS Statement: Those systems with pertinent positive or pertinent negative responses have been documented in the HPI. ROS Other: All systems not noted in ROS Statement are negative. Constitutional: Denies: fever, chills Eyes: Denies: vision change Respiratory: Reports: dyspnea. Denies: cough Cardiovascular: Reports: syncope. 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 Anemia with blood transfusions.02/25/2018 WAS IN [facility] FOR SEPSIS UTI ECOLI INFECTION. History of Any Multi-Drug Resistant Organisms: ESBL Date of last positivie culture/infection: 02/25/18 MDRO Source:: urine, blood esbl Past Surgical History: Cardiac Valve Replacement, Coronary Bypass/CABG, Heart Catheterization Additional Past Surgical History / Comment(s): 03/02/17 cystoscopy/evacuation clots and fulguration bladder, 01/20/12 CABG-3 vessel with aortic valve. Past Anesthesia/Blood Transfusion Reactions: No Reported Reaction Past Psychological History: No Psychological Hx Reported Smoking Status: Former smoker Past Alcohol Use History: None Reported Past Drug Use History: None Reported - Past Family History Mother Family Medical History: Myocardial Infarction ([place]) Additional Family Medical History / Comment(s): Mother at age 67 from a myocardial infarction. Father Family Medical History: Diabetes Mellitus, Myocardial Infarction ([place]) Additional Family Medical History / Comment(s): Father from complications from diabetes mellitus that was uncontrolled with frequent episodes of coma. He also has history of myocardial infarction. The patient has no children and no siblings. General Exam Limitations: no limitations General appearance: alert, in distress Head exam: Present: atraumatic, normocephalic Eye exam: Present: normal appearance, PERRL, EOMI. Absent: scleral icterus, conjunctival injection ENT exam: Present: mucous membranes dry Neck exam: Present: normal inspection. Absent: tenderness Respiratory exam: Present: normal lung sounds bilaterally, rales (Bilateral bases). Absent: respiratory distress, wheezes, rhonchi, stridor, accessory muscle use, decreased breath sounds Cardiovascular Exam: Present: regular rate, normal rhythm, normal heart sounds. Absent: systolic murmur, diastolic murmur, rubs, gallop GI/Abdominal exam: Present: soft, diminished bowel sounds. Absent: distended, tenderness, guarding, rebound, rigid, mass, pulsatile mass, hernia Extremities exam: Present: normal inspection, normal capillary refill. Absent: pedal edema, calf tenderness Back exam: Present: normal inspection. Absent: CVA tenderness (R), CVA tenderness (L) Neurological exam: Present: alert Skin exam: Present: intact, diaphoretic, mottled. Absent: rash, erythema, urticaria, vesicles Course Vital Signs 12/07/20 12/07/20 12/07/20 04:12 04:15 04:43 Temperature 97.9 F 98.6 F Pulse Rate 91 92 Respiratory 14 20 18 Rate Blood Pressure 112/99 91/66 O2 Sat by Pulse 92 L 92 L Oximetry 12/07/20 12/07/20 12/07/20 05:23 05:26 05:30 Temperature Pulse Rate 103 H 99 130 H Respiratory 34 H 10 L 28 H Rate Blood Pressure 77/53 97/39 87/41 O2 Sat by Pulse 94 L 96 94 L Oximetry 12/07/20 12/07/20 12/07/20 05:40 05:50 06:00 Temperature Pulse Rate 98 87 86 Respiratory 27 H 25 H 25 H Rate Blood Pressure 101/52 78/38 87/43 O2 Sat by Pulse 97 95 Oximetry 12/07/20 12/07/20 12/07/20 06:10 06:21 06:30 Temperature Pulse Rate 85 88 83 Respiratory 25 H 20 20 Rate Blood Pressure 79/34 92/47 90/48 O2 Sat by Pulse 100 97 97 Oximetry 12/07/20 12/07/20 12/07/20 06:50 06:55 07:00 Temperature Pulse Rate 87 Respiratory 18 Rate Blood Pressure 89/46 92/44 91/52 O2 Sat by Pulse 99 96 Oximetry 12/07/20 12/07/20 12/07/20 07:20 07:30 07:34 Temperature Pulse Rate 120 H 48 L 96 Respiratory Rate Blood Pressure 98/33 118/75 O2 Sat by Pulse Oximetry Procedures - Fertile Protocol (Time Out) Procedure Performed:: central line left groin Performing Provider: Piero Salas Nurse: Danielle Warner Patient Identification (2 identifiers required): Chart, Verbal, Arm Band, Name, Birthdate Patient/Legal Integrated Marketing Manager has Confirmed: Identity, Site, Procedure, Consent Site: left groin Site Marked: Not Applicable Site Verified With Patient/Guardian: Yes Medical Decision Making - Medical Decision Making Patient is an 84-year-old man brought for evaluation of passing out episode with diaphoresis. On arrival, the patient was initially confused and his mental status subsequently cleared. He was then complaining mainly of back pain which his states is chronic but the patient seems to relate it being positional. Given the back pain and the hypotension, he is sent for CT to rule out dissection. Patient's studies do reveal what appears to be urinary tract infection and also lactic acidosis. Patient is given IV antibiotics. Initially fluids were held as the patient's chest x-ray suggestive of element of congestive heart failure. He did have crackles at the bases of the lungs. After computed tomography scan does not reveal dissection, concerned more for sepsis and patient given fluids with pressure still being borderline. Case is discussed with the vibrating screen operator, and patient to have central line placed for pressors. The patient and did give consent. As the central line was being attempted, the patient did develop ventricular fibrillation. ACLS implemented with BVM, compressions, epinephrine, defibrillation. The patient did return to organized cardiac rhythm, sinus initially tachycardic and then normal rate. Patient was intubated, placement confirmed by color capnometry, auscultation, chest x-ray requested but before this could be obtained, the patient did bradycardia down and require ACLS be resumed. The patient is given multiple rounds of epinephrine, bicarb, and compressions with no response. At times there was PEA, as verified by ultrasound at the bedside. After discussion with patient's , the patient is pronounced at 746. Dr. Self informed of patient passing. Case is discussed with associate medical director and patient released - Lab Data Result diagrams: 12/07/20 04:46 12/07/20 04:46 Lab Results 12/07/20 12/07/20 12/07/20 Range/Units 04:46 04:46 04:46 WBC 7.4 (3.8-10.6) k/uL RBC 3.93 L (4.30-5.90) m/uL Hgb 12.1 L (13.0-17.5) gm/dL Hct 38.6 L (39.0-53.0) % MCV 98.1 (80.0-100.0) fL MCH 30.7 (25.0-35.0) pg MCHC 31.3 (31.0-37.0) g/dL RDW 14.9 (11.5-15.5) % Plt Count 241 (150-450) k/uL MPV 8.9 Neutrophils % 63 % Lymphocytes % 28 % Monocytes % 4 % Eosinophils % 3 % Basophils % 1 % Neutrophils # 4.7 (1.3-7.7) k/uL Lymphocytes # 2.1 (1.0-4.8) k/uL Monocytes # 0.3 (0-1.0) k/uL Eosinophils # 0.2 (0-0.7) k/uL Basophils # 0.1 (0-0.2) k/uL PT 9.7 (9.0-12.0) sec INR 0.9 (<1.2) APTT 23.8 (22.0-30.0) sec Sodium (137-145) mmol/L Potassium (3.5-5.1) mmol/L Chloride (98-107) mmol/L Carbon Dioxide (22-30) mmol/L Anion Gap mmol/L BUN (9-20) mg/dL Creatinine (0.66-1.25) mg/dL Est GFR (CKD-EPI)AfAm (>60 ml/min/1.73 sqM) Est GFR (CKD-EPI)NonAf (>60 ml/min/1.73 sqM) Glucose (74-99) mg/dL Lactic Ac Sepsis Rflx Plasma Lactic Acid Judd (0.7-2.0) mmol/L Calcium (8.4-10.2) mg/dL Total Bilirubin (0.2-1.3) mg/dL AST (17-59) U/L ALT (4-49) U/L Alkaline Phosphatase (38-126) U/L Troponin I (0.000-0.034) ng/mL NT-Pro-B Natriuret Pep pg/mL Total Protein (6.3-8.2) g/dL Albumin (3.5-5.0) g/dL Urine Color Yellow Urine Appearance Clear (Clear) Urine pH 6.0 (5.0-8.0) Ur Specific [place] 1.015 (1.001-1.035) Urine Protein Trace H (Negative) Urine Glucose (UA) Negative (Negative) Urine Ketones Negative (Negative) Urine Blood Trace H (Negative) Urine Nitrite Positive (Negative) Urine Bilirubin Negative (Negative) Urine Urobilinogen <2.0 (<2.0) mg/dL Ur Leukocyte Esterase Large H (Negative) Urine RBC 9 H (0-5) /hpf Urine WBC 86 H (0-5) /hpf Urine WBC Clumps Occasional H (None) /hpf Ur Squamous Epith Cells <1 (0-4) /hpf Urine Bacteria Many H (None) /hpf Urine Mucus Rare H (None) /hpf Urine Opiates Screen Not Detected (NotDetected) Ur Oxycodone Screen Not Detected (NotDetected) Urine Methadone Screen Not Detected (NotDetected) Ur Propoxyphene Screen Not Detected (NotDetected) Ur Barbiturates Screen Not Detected (NotDetected) U Tricyclic Antidepress Not Detected (NotDetected) Ur Phencyclidine Scrn Not Detected (NotDetected) Ur Amphetamines Screen Not Detected (NotDetected) U Methamphetamines Scrn Not Detected (NotDetected) U Benzodiazepines Scrn Not Detected (NotDetected) Urine Cocaine Screen Not Detected (NotDetected) U Marijuana (THC) Screen Not Detected (NotDetected) Serum Alcohol mg/dL Coronavirus (PCR) (Not Detectd) 12/07/20 12/07/20 12/07/20 Range/Units 04:46 04:46 04:46 WBC (3.8-10.6) k/uL RBC (4.30-5.90) m/uL Hgb (13.0-17.5) gm/dL Hct (39.0-53.0) % MCV (80.0-100.0) fL MCH (25.0-35.0) pg MCHC (31.0-37.0) g/dL RDW (11.5-15.5) % Plt Count (150-450) k/uL MPV Neutrophils % % Lymphocytes % % Monocytes % % Eosinophils % % Basophils % % Neutrophils # (1.3-7.7) k/uL Lymphocytes # (1.0-4.8) k/uL Monocytes # (0-1.0) k/uL Eosinophils # (0-0.7) k/uL Basophils # (0-0.2) k/uL PT (9.0-12.0) sec INR (<1.2) APTT (22.0-30.0) sec Sodium 137 (137-145) mmol/L Potassium 4.4 (3.5-5.1) mmol/L Chloride 102 (98-107) mmol/L Carbon Dioxide 19 L (22-30) mmol/L Anion Gap 16 mmol/L BUN 22 H (9-20) mg/dL Creatinine 1.69 H (0.66-1.25) mg/dL Est GFR (CKD-EPI)AfAm 43 (>60 ml/min/1.73 sqM) Est GFR (CKD-EPI)NonAf 37 (>60 ml/min/1.73 sqM) Glucose 276 H (74-99) mg/dL Lactic Ac Sepsis Rflx Plasma Lactic Acid Judd (0.7-2.0) mmol/L Calcium 9.7 (8.4-10.2) mg/dL Total Bilirubin 0.5 (0.2-1.3) mg/dL AST 42 (17-59) U/L ALT 26 (4-49) U/L Alkaline Phosphatase 94 (38-126) U/L Troponin I 0.035 H* (0.000-0.034) ng/mL NT-Pro-B Natriuret Pep 858 pg/mL Total Protein 7.8 (6.3-8.2) g/dL Albumin 4.4 (3.5-5.0) g/dL Urine Color Urine Appearance (Clear) Urine pH (5.0-8.0) Ur Specific [place] (1.001-1.035) Urine Protein (Negative) Urine Glucose (UA) (Negative) Urine Ketones (Negative) Urine Blood (Negative) Urine Nitrite (Negative) Urine Bilirubin (Negative) Urine Urobilinogen (<2.0) mg/dL Ur Leukocyte Esterase (Negative) Urine RBC (0-5) /hpf Urine WBC (0-5) /hpf Urine WBC Clumps (None) /hpf Ur Squamous Epith Cells (0-4) /hpf Urine Bacteria (None) /hpf Urine Mucus (None) /hpf Urine Opiates Screen (NotDetected) Ur Oxycodone Screen (NotDetected) Urine Methadone Screen (NotDetected) Ur Propoxyphene Screen (NotDetected) Ur Barbiturates Screen (NotDetected) U Tricyclic Antidepress (NotDetected) Ur Phencyclidine Scrn (NotDetected) Ur Amphetamines Screen (NotDetected) U Methamphetamines Scrn (NotDetected) U Benzodiazepines Scrn (NotDetected) Urine Cocaine Screen (NotDetected) U Marijuana (THC) Screen (NotDetected) Serum Alcohol <10 mg/dL Coronavirus (PCR) (Not Detectd) 12/07/20 12/07/20 12/07/20 Range/Units 04:51 05:44 06:18 WBC (3.8-10.6) k/uL RBC (4.30-5.90) m/uL Hgb (13.0-17.5) gm/dL Hct (39.0-53.0) % MCV (80.0-100.0) fL MCH (25.0-35.0) pg MCHC (31.0-37.0) g/dL RDW (11.5-15.5) % Plt Count (150-450) k/uL MPV Neutrophils % % Lymphocytes % % Monocytes % % Eosinophils % % Basophils % % Neutrophils # (1.3-7.7) k/uL Lymphocytes # (1.0-4.8) k/uL Monocytes # (0-1.0) k/uL Eosinophils # (0-0.7) k/uL Basophils # (0-0.2) k/uL PT (9.0-12.0) sec INR (<1.2) APTT (22.0-30.0) sec Sodium (137-145) mmol/L Potassium (3.5-5.1) mmol/L Chloride (98-107) mmol/L Carbon Dioxide (22-30) mmol/L Anion Gap mmol/L BUN (9-20) mg/dL Creatinine (0.66-1.25) mg/dL Est GFR (CKD-EPI)AfAm (>60 ml/min/1.73 sqM) Est GFR (CKD-EPI)NonAf (>60 ml/min/1.73 sqM) Glucose (74-99) mg/dL Lactic Ac Sepsis Rflx Y Plasma Lactic Acid Judd 5.3 H* (0.7-2.0) mmol/L Calcium (8.4-10.2) mg/dL Total Bilirubin (0.2-1.3) mg/dL AST (17-59) U/L ALT (4-49) U/L Alkaline Phosphatase (38-126) U/L Troponin I (0.000-0.034) ng/mL NT-Pro-B Natriuret Pep pg/mL Total Protein (6.3-8.2) g/dL Albumin (3.5-5.0) g/dL Urine Color Urine Appearance (Clear) Urine pH (5.0-8.0) Ur Specific [place] (1.001-1.035) Urine Protein (Negative) Urine Glucose (UA) (Negative) Urine Ketones (Negative) Urine Blood (Negative) Urine Nitrite (Negative) Urine Bilirubin (Negative) Urine Urobilinogen (<2.0) mg/dL Ur Leukocyte Esterase (Negative) Urine RBC (0-5) /hpf Urine WBC (0-5) /hpf Urine WBC Clumps (None) /hpf Ur Squamous Epith Cells (0-4) /hpf Urine Bacteria (None) /hpf Urine Mucus (None) /hpf Urine Opiates Screen (NotDetected) Ur Oxycodone Screen (NotDetected) Urine Methadone Screen (NotDetected) Ur Propoxyphene Screen (NotDetected) Ur Barbiturates Screen (NotDetected) U Tricyclic Antidepress (NotDetected) Ur Phencyclidine Scrn (NotDetected) Ur Amphetamines Screen (NotDetected) U Methamphetamines Scrn (NotDetected) U Benzodiazepines Scrn (NotDetected) Urine Cocaine Screen (NotDetected) U Marijuana (THC) Screen (NotDetected) Serum Alcohol mg/dL Coronavirus (PCR) Not Detected (Not Detectd) Disposition Clinical Impression: Sepsis, UTI (urinary tract infection) Disposition: Referrals: Alfredo Self MD [Primary Care Provider] - 1-2 days Preliminary Cause of : sepsis, urinary tract infection
== END 2020-12-07 09:59 | disposition expired ==
LOC: EC 04:10
DX: A41.9 Sepsis, unspecified organism (principal); N39.0 Urinary tract infection, site not specified; I10 Essential (primary) hypertension; I25.10 Atherosclerotic heart disease of native coronary artery without angina pectoris; E11.9 Type 2 diabetes mellitus without complications; E78.5 Hyperlipidemia, unspecified; N28.1 Cyst of kidney, acquired; M19.90 Unspecified osteoarthritis, unspecified site; Z85.46 Personal history of malignant neoplasm of prostate; Z95.2 Presence of prosthetic heart valve; Z95.1 Presence of aortocoronary bypass graft; Z87.891 Personal history of nicotine dependence; Z87.440 Personal history of urinary (tract) infections; Z20.822 Contact with and (suspected) exposure to COVID-19
CPT/HCPCS: 99285; 96365; 96375 ×2; 36556; 36415; 94660; 94002; 93005; 83880; 80053; 83605; 84484; 85025; 85610; 85730; 81001; 87040; 80306; 87086; 87077; 87186; 87635; 71045; 72125; 70450; 71275; 74174; G0480; J0330; J2060; J2270; J0171; J0696; Q9967; 80320